=== PATIENT | female | born 1945 | race Caucasian/White ===

== ENCOUNTER 2023-03-20 12:19 | Outpatient (OUT) | payer MEDICARE, MEDICAID, SELFPAY ==
--- NOTE | 2023-03-20 | XR_ITS ---
The [address] [address] Patient Name: SIMA LEY MRN: [id number] date: 1945 Sex: F Assigned Patient Location: RAD Current Patient Location: RAD Accession/Order Number: [id number] Exam Date: 03/20/2023 12:28 Report Date: 03/20/2023 13:12 At the request of: LIDYA POST Procedure: XR abdomen 1V EXAMINATION: XR abdomen 1V HISTORY: Abdominal pain ; intermittent constipation, diarrhea, abdominal pain for one month COMPARISON: XR abdomen with chest 04/10/2014 FINDINGS: KIDNEY/URETER - RIGHT: No visible renal or ureteral calcifications. KIDNEY/URETER - LEFT: No visible renal or ureteral calcifications. PELVIS: No appreciable ureteral stones. Stable chronic small calcification left lateral to L4-5 intervertebral disc space. BOWEL: No abnormal dilation or deviation. No suspicious fluid levels. BONES: No acute abnormality. OTHER: Negative. No abnormal gaseous collections. XR/XR abdomen 1V IMPRESSION: 1. Normal bowel gas pattern. No suspicious findings to account for patient's symptoms. Electronically authenticated by: YOJANA GARCIA Date: 03/20/2023 13:12
== END 2023-03-20 12:20 | disposition home or self-care (01) ==
LOC: RAD 12:23
PROVIDERS: PCP Family Medicine; Visit Provider Family Medicine
DX: R10.9 Unspecified abdominal pain (principal); K59.00 Constipation, unspecified; R19.7 Diarrhea, unspecified
CPT/HCPCS: 74018

== ENCOUNTER 2023-07-18 13:04 | Emergency (ER) | payer MEDICARE, MEDICAID, SELFPAY ==
[2023-07-18 13:17] VITALS: BP 151/100; PULSE 104; RESP 18; TEMP 36.7; O2SAT 98; BMI 26.3
--- NOTE | 2023-07-18 13:23 | XR_ITS ---
The [address] [address] Patient Name: SIMA LEY MRN: [id number] date: 1945 Sex: F Assigned Patient Location: ER Current Patient Location: ED.MAIN Accession/Order Number: [id number] Exam Date: 07/18/2023 13:54 Report Date: 07/18/2023 14:13 At the request of: BETH CALDWELL Procedure: XR acute abdomen series EXAMINATION: XR acute abdomen series HISTORY: Diarrhea, hypertension COMPARISON: XR abdomen 03/20/2023, XR chest 03/02/2021 FINDINGS: LUNGS: No infiltrate, pneumothorax, or pleural effusion. MEDIASTINUM: No abnormal widening. Prior sternotomy. BOWEL GAS PATTERN: No abnormal dilation. Air and a few small fluid levels within the ascending and transverse colon. FREE AIR: None. CALCIFICATIONS: None significant. BONES: No fracture or visible bone lesion. OTHER: Negative. XR/XR acute abdomen series IMPRESSION: 1. No acute cardiopulmonary process. 2. No bowel obstruction or convincing ileus. Enteritis cannot be excluded. Electronically authenticated by: YOJANA GARCIA Date: 07/18/2023 14:13
--- NOTE | 2023-07-18 13:23 | ECG_ITS ---
The [facility] Test Date: 2023-07-18 Pat Name: SIMA LEY Department: Room: - Gender: Female Clinic Coordinator: : 1945 Requested By: LIDYA POST Order Number: [id number] Reading MD: MENDY MCKEON Measurements Intervals [place] Rate: 86 P: 53 CT: 144 QRS: -35 QRSD: 90 T: 74 QT: 362 QTc: 406 Interpretive Statements 1100 Sinus rhythm 7200 Abnormal left axis deviation 8102 Low QRS voltage in chest leads 9150 abnormal ECG No previous ECG available for comparison Electronically Signed On 07-19-2023 7:15:17 EST by MENDY MCKEON
[2023-07-18 14:27] LABS: Basophils Absolute Auto 0.1 10^3/uL (0.0-0.1); Basophils Percent Auto 0.7 % (0.2-2.0); Eosinophils Absolute Auto 0.2 10^3/uL (0.0-0.7); Eosinophils Percent Auto 2.7 % (0.9-7.0); Hematocrit 44.8 % (36.0-48.0); Immature Granulocytes Abs Auto 0.02 10^3/uL (0.00-0.03); Immature Granulocytes Pct Auto 0.3 % (0.0-0.5); Lymphocytes Absolute Auto 1.8 10^3/uL (1.2-3.8); Lymphocytes Percent Auto 23.9 % (20.5-60.0); Mean Corpuscular HGB Conc 31.3 g/dL (29.9-35.2); Mean Corpuscular Hemoglobin 30.2 pg (26.7-34.0); Mean Corpuscular Volume 96.8 fL (81.0-99.0); Mean Platelet Volume 9.3 fL (9.5-13.5); Monocytes Absolute Auto 0.6 10^3/uL (0.3-0.8); Monocytes Percent Auto 7.9 % (1.7-12.0); Neutrophils Percent Auto 64.5 % (43.0-75.0); Platelet Count 246 10^3/uL (150-450); Red Blood Count 4.63 10^6/uL (4.20-5.40); Red Cell Distribution Width 13.5 % (11.0-15.0); White Blood Count 7.7 10^3/uL (4.0-11.0)
[2023-07-18 15:05] LABS: Albumin Level 3.9 g/dL (3.4-5.0); Anion Gap 14.9; BUN Creatinine Ratio 13.3; Calcium 9.5 mg/dL (8.5-10.1); Carbon Dioxide 27.5 mmol/L (21.0-32.0); Chloride 104 mmol/L (98-107); Estimated GFR (African America 53 (>=60); Estimated GFR (Non-African Ame 44 (>=60); Glucose 115 mg/dL (74-106); Potassium 4.4 mmol/L (3.5-5.1); Sodium 142 mmol/L (136-145)
[2023-07-18 15:07] LABS: Bilirubin Total 0.6 mg/dL (0.2-1.0)
[2023-07-18 15:08] LABS: Alanine Aminotransferase 25 U/L (14-59); Albumin Globulin Ratio 1.1; Alkaline Phosphatase 74 U/L (46-116); Aspartate Amino Transferase 29 U/L (15-37); Globulin 3.5 g/dL; Thyroid Stimulating Hormone 1.985 uIU/mL (0.358-3.740); Total Protein 7.4 g/dL (6.4-8.2); Troponin I High Sensitivity 9.1 pg/mL (4.0-51.3)
[2023-07-18 17:28] VITALS: BP 148/90
--- NOTE | 2023-07-18 17:35 | ED.GENADUL1 ---
HPI - General Adult General Chief complaint: Nausea/Vomiting/Diarrhea Stated complaint: HYPERTENSION Time Seen by Provider: 07/18/23 13:23 Source: patient and family Mode of arrival: Wheelchair Limitations: physical limitation History of Present Illness HPI narrative: 77-year-old female presents because she wanted to be reassured that she is okay. She was worried about her heart because her blood pressure one up. She has been on Xanax for decades and recently her physician retired and the new physician will prescribe her anymore and he put her on Cymbalta. He's been on that for a few weeks but has Xanax at home. She is looking for a new doctor to prescribe her Xanax. She doesn't seem to have chest pain and hasn't had a fever or cough. Related Data Allergies Allergy/AdvReac Type Severity Reaction Status Date / Time prochlorperazine AdvReac Severe Vomiting Verified 07/18/23 13:21 [From Compazine] Review of Systems ROS Narrative A ten point review of systems is negative except as noted above. PFSH PFS Social History Smoking status: Never smoker Exam Narrative Exam Narrative: Nurses note and vital signs reviewed and patient is not hypoxic. General: The patient appears well and in no apparent distress. Patient is resting comfortably on cart. Skin: Warm, dry, no pallor noted. There is no rash noted. Head: Normocephalic, atraumatic Eye: Normal conjunctiva, no drainage Ears, Nose, Mouth, and Throat: oral mucosa is moist. Nares patent. Cardiovascular: Regular Rate and Rhythm Respiratory: Patient is in no distress, no accessory muscle use, lungs are clear to auscultation, no wheezing, rales or rhonchi Back: non-tender GI: Normal bowel sounds, no tenderness to palpation, no masses appreciated. No rebound, guarding, or rigidity noted. Musculoskeletal: The patient has no evidence of calf tenderness, no pitting edema, symmetrical pulses noted bilaterally Neurological: A&O, normal speech Psychiatric: Cooperative, appears anxious Constitutional Vital Signs, click to edit/add: Last Vital Signs Temp 98.1 F 07/18/23 13:17 Pulse 104 H 07/18/23 13:17 Resp 18 07/18/23 13:17 BP 148/90 H 07/18/23 17:28 Pulse Ox 98 07/18/23 13:17 O2 Del Method Room Air 07/18/23 13:17 Course Vital Signs Vital signs: Vital Signs Temperature 98.1 F 07/18/23 13:17 Pulse Rate 104 H 07/18/23 13:17 Respiratory Rate 18 07/18/23 13:17 Blood Pressure 151/100 H 07/18/23 13:17 Pulse Oximetry 98 07/18/23 13:17 Oxygen Delivery Method Room Air 07/18/23 13:17 Temperature 98.1 F 07/18/23 13:17 Pulse Rate 104 H 07/18/23 13:17 Respiratory Rate 18 07/18/23 13:17 Blood Pressure 148/90 H 07/18/23 17:28 Pulse Oximetry 98 07/18/23 13:17 Oxygen Delivery Method Room Air 07/18/23 13:17 Medical Decision Making MDM Narrative Medical decision making narrative: extensive workup ears negative and she was reassured. She was given a list of new physicians. Treatment diagnosis and follow-up were discussed with the patient. Differential Diagnosis Differential Diagnosis: cardiac dysrhythmia, myocardial infarction, anxiety Lab Data Lab results reviewed: Yes I reviewed the patient's lab results Labs: Lab Results 07/18/23 Range/Units 14:10 WBC 7.7 (4.0-11.0) 10^3/uL RBC 4.63 (4.20-5.40) 10^6/uL Hgb 14.0 (12.0-16.0) g/dL Hct 44.8 (36.0-48.0) % MCV 96.8 (81.0-99.0) fL MCH 30.2 (26.7-34.0) pg MCHC 31.3 (29.9-35.2) g/dL RDW 13.5 (11.0-15.0) % Plt Count 246 (150-450) 10^3/uL MPV 9.3 L (9.5-13.5) fL Neut % (Auto) 64.5 (43.0-75.0) % Lymph % (Auto) 23.9 (20.5-60.0) % [place] % (Auto) 7.9 (1.7-12.0) % Eos % (Auto) 2.7 (0.9-7.0) % Baso % (Auto) 0.7 (0.2-2.0) % Neut # (Auto) 5.0 (1.4-6.5) 10^3/uL Lymph # (Auto) 1.8 (1.2-3.8) 10^3/uL [place] # (Auto) 0.6 (0.3-0.8) 10^3/uL Eos # (Auto) 0.2 (0.0-0.7) 10^3/uL Baso # (Auto) 0.1 (0.0-0.1) 10^3/uL Abs Immat Gran (auto) 0.02 (0.00-0.03) 10^3/uL Imm/Tot Granulo (auto) 0.3 (0.0-0.5) % Sodium 142 (136-145) mmol/L Potassium 4.4 (3.5-5.1) mmol/L Chloride 104 (98-107) mmol/L Carbon Dioxide 27.5 (21.0-32.0) mmol/L Anion Gap 14.9 BUN 16.0 (7.0-18.0) mg/dL Creatinine 1.20 H (0.55-1.02) mg/dL Est GFR ( Amer) 53 L (>=60) Est GFR (Non-Af Amer) 44 L (>=60) BUN/Creatinine Ratio 13.3 Glucose 115 H (74-106) mg/dL Calcium 9.5 (8.5-10.1) mg/dL Total Bilirubin 0.6 (0.2-1.0) mg/dL AST 29 (15-37) U/L ALT 25 (14-59) U/L Alkaline Phosphatase 74 (46-116) U/L Troponin I High Sens 9.1 (4.0-51.3) pg/mL Total Protein 7.4 (6.4-8.2) g/dL Albumin 3.9 (3.4-5.0) g/dL Globulin 3.5 g/dL Albumin/Globulin Ratio 1.1 TSH 1.985 (0.358-3.740) uIU/mL Imaging Data Chest x-ray: Radiologist's impression: Procedure: XR acute abdomen series EXAMINATION: XR acute abdomen series HISTORY: Diarrhea, hypertension COMPARISON: XR abdomen 03/20/2023, XR chest 03/02/2021 FINDINGS: LUNGS: No infiltrate, pneumothorax, or pleural effusion. MEDIASTINUM: No abnormal widening. Prior sternotomy. BOWEL GAS PATTERN: No abnormal dilation. Air and a few small fluid levels within the ascending and transverse colon. FREE AIR: None. CALCIFICATIONS: None significant. BONES: No fracture or visible bone lesion. OTHER: Negative. IMPRESSION: 1. No acute cardiopulmonary process. 2. No bowel obstruction or convincing ileus. Enteritis cannot be excluded. ECG Data Attestation: I personally reviewed and interpreted this ECG as follows: (EKG on my interpretation shows sinus rhythm with no acute findings and a rate of 86.) Discharge Plan Discharge Chief Complaint: Nausea/Vomiting/Diarrhea Clinical Impression: Anxiety Patient Disposition: Home, Self-Care Time of Disposition Decision: 17:34 Condition: Good Mode of Transportation: Private Vehicle Instructions: Anxiety (ED) Stand Alone Forms: Portal Instructions Referrals: LIDYA POST [Primary Care Provider] - 1 week
== END 2023-07-18 17:42 | disposition home or self-care (01) ==
PROVIDERS: Physician Assistant; Emergency Provider Emergency Medicine; PCP Family Medicine
DX: F41.9 Anxiety disorder, unspecified (principal); Z79.899 Other long term (current) drug therapy
CPT/HCPCS: 36415; 74022; 80053; 84443; 84484; 85025; 93005; 99285

== ENCOUNTER 2023-08-06 21:41 | Emergency (ER) | payer MEDICARE, MEDICAID, SELFPAY ==
[2023-08-06 21:47] VITALS: BP 147/77; PULSE 78; RESP 18; TEMP 36.5; O2SAT 94; BMI 26.0
--- NOTE | 2023-08-06 22:04 | CT_ITS ---
The [address] [address] Patient Name: SIMA LEY MRN: [id number] date: 1945 Sex: F Assigned Patient Location: ER Current Patient Location: ER Accession/Order Number: [id number] Exam Date: 08/06/2023 22:30 Report Date: 08/06/2023 23:19 At the request of: JIMBO LANGFORD Procedure: CT abdomen pelvis wo con EXAM: CT abdomen pelvis wo con HISTORY: constipation, r/o obstruction COMPARISON: None. TECHNIQUE: Nonenhanced CT imaging the abdomen and pelvis was performed with sagittal and coronal reconstructions. FINDINGS: CT ABDOMEN: The lung bases are clear. The imaged heart is unremarkable. The exam is limited by the lack of IV contrast. Solid organ lesions or acute abnormalities could be missed. Allowing for this, the liver, pancreas, spleen, adrenal glands, kidneys, stomach and small bowel appear grossly unremarkable. Cholecystectomy is noted. There are moderate aortic and iliac calcifications without aneurysm. CT PELVIS: The pelvic small bowel loops are unremarkable. Multiple layering tiny stones are seen in the posterior urinary bladder. The bladder is otherwise unremarkable. Prior hysterectomy is noted. The ovaries and appendix are not visualized and may have been removed as well. Sigmoid diverticulosis is noted. There is moderate stool throughout the colon. There is a benign 1.2 cm rim calcified nodule in the right lower quadrant on image 89, likely a lymph node. Mild pelvic floor laxity is present. No inflammatory fat stranding, free fluid, loculated fluid or free air is seen in the abdomen or pelvis. Sclerotic changes in the bilateral femoral heads are suspicious for early avascular necrosis. Mild degenerative changes are noted in the lumbar spine. No acute osseous abnormality or suspicious bony lesion is seen. CT/CT abdomen pelvis wo con IMPRESSION: 1. No acute findings in the abdomen or pelvis. 2. Multiple tiny layering bladder calculi. No hydronephrosis or ureterolithiasis on either side. 3. Moderate colonic stool volume. Sigmoid diverticulosis is noted. 4. Prior cholecystectomy and hysterectomy. 5. 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 MRI could further evaluate. Electronically authenticated by: LEIGH EDGAR Date: 08/06/2023 23:19
[2023-08-06 22:32] LABS: Basophils Absolute Auto 0.1 10^3/uL (0.0-0.1); Basophils Percent Auto 0.7 % (0.2-2.0); Eosinophils Absolute Auto 0.2 10^3/uL (0.0-0.7); Eosinophils Percent Auto 2.2 % (0.9-7.0); Hematocrit 41.5 % (36.0-48.0); Hemoglobin 12.9 g/dL (12.0-16.0); Immature Granulocytes Abs Auto 0.01 10^3/uL (0.00-0.03); Immature Granulocytes Pct Auto 0.1 % (0.0-0.5); Lymphocytes Absolute Auto 2.9 10^3/uL (1.2-3.8); Lymphocytes Percent Auto 35.6 % (20.5-60.0); Mean Corpuscular HGB Conc 31.1 g/dL (29.9-35.2); Mean Corpuscular Hemoglobin 30.6 pg (26.7-34.0); Mean Corpuscular Volume 98.3 fL (81.0-99.0); Mean Platelet Volume 9.2 fL (9.5-13.5); Monocytes Absolute Auto 0.6 10^3/uL (0.3-0.8); Neutrophils Absolute Auto 4.4 10^3/uL (1.4-6.5); Neutrophils Percent Auto 54.4 % (43.0-75.0); Platelet Count 227 10^3/uL (150-450); Red Blood Count 4.22 10^6/uL (4.20-5.40); Red Cell Distribution Width 13.3 % (11.0-15.0); White Blood Count 8.1 10^3/uL (4.0-11.0)
[2023-08-06 22:33] LABS: Bilirubin Urine NEGATIVE (NEGATIVE); Blood Urine NEGATIVE (NEGATIVE); Clarity Urine CLEAR (CLEAR); Color Urine DK. YELLOW (YELLOW); Glucose Urine UA NEGATIVE (NEGATIVE); Ketones Urine NEGATIVE (NEGATIVE); Leukocyte Esterase Urine SMALL (NEGATIVE); Nitrite Urine POSITIVE (NEGATIVE); Protein Urine NEGATIVE (NEG/TRACE); Specific Gravity Urine 1.025 (1.005-1.025); Urine Microscopic Indicated YES; Urobilinogen Urine 0.2 EU/dL (0.2-1.0)
[2023-08-06 22:39] LABS: Bacteria Urine SMALL #/HPF (NONE SEEN); Mucus Urine NONE SEEN (NONE SEEN); RBC Urine 0-2 #/HPF (0-2); Squamous Epithelial Cell Urine FEW #/LPF (NONE/RARE)
[2023-08-06 22:40] LABS: Cast Seen? SEEN #/LPF (NONE SEEN); Crystals Seen? None Seen #/HPF (None Seen); Hyaline Casts Urine FEW; Urine Culture Indicated YES
[2023-08-06 22:41] LABS: Anion Gap 8.8; BUN Creatinine Ratio 19.9; Calcium 8.9 mg/dL (8.5-10.1); Carbon Dioxide 28.2 mmol/L (21.0-32.0); Chloride 103 mmol/L (98-107); Estimated GFR (African America 38 (>=60); Estimated GFR (Non-African Ame 31 (>=60); Glucose 101 mg/dL (74-106); Sodium 136 mmol/L (136-145)
--- NOTE | 2023-08-07 00:12 | ED.ABDPAIN1 ---
HPI - Abdominal Pain General Chief Complaint: Abdominal Pain Stated Complaint: Constipation Time Seen by Provider: 08/06/23 21:52 Source: patient Mode of arrival: walk-in Limitations: no limitations History of Present Illness HPI narrative: 72-year-old female to the emergency department with chief complaint of seven-day history of constipation. Patient reports she is having small bowel movements and feels though she is straining to have them. She is passing gas. She reports occasional nausea. She vomited one time this week. She denies any fever, sweats, chills. She reports she is also Being treated for a urinary tract infection is on Bactrim. Reports occasional cramping lower abdominal pain. Related Data Previous Rx's Medication Instructions Recorded cephalexin 500 mg capsule 500 mg PO BID 5 days #10 caps 08/06/23 ondansetron 4 mg disintegrating 4 mg PO Q8H PRN nausea and 08/06/23 tablet vomiting 4 days #16 tabs Allergies Allergy/AdvReac Type Severity Reaction Status Date / Time prochlorperazine AdvReac Severe Vomiting Verified 07/18/23 13:21 [From Compazine] Review of Systems ROS Status of ROS 10 or more systems reviewed and unremarkable except as noted in history and below PFSH PFSH Social History Smoking status: Never smoker Exam Narrative Exam Narrative: VITALS: I have reviewed the triage vital signs.? GENERAL: Well developed, well appearing adult in no acute distress.?? NEURO: Alert and oriented. Moves all extremities. Face is symmetric and expressive.? EYES: PERRL. No scleral icterus or conjunctival injection. No discharge.? HENT: Normocephalic, atraumatic. Hearing is grossly intact. Nares grossly patent and without discharge. Mucous membranes moist.? NECK: No JVD. Patient moves neck without restriction.? CARDIO: Rhythm regular. Normal rate. No murmur, rub, or gallop. Pulses equal bilaterally in the upper and lower extremity. No lower extremity edema.? PULM: Lungs clear to auscultation in all street. No wheezes, rales, or rhonchi. No conversational dyspnea. No splinting, stridor, or accessory muscle use.?? GI/: Abdomen is soft and non-tender. Normoactive bowel sounds.? EXTREMITIES: Symmetric muscle bulk. No joint swelling. No clubbing, cyanosis, or deformity.? SKIN: Warm and dry. Normal turgor. No rash or lesions appreciated.? PSYCH: Mood, affect, and interaction is appropriate to the setting. Constitutional Vital Signs, click to edit/add: Last Vital Signs Temp 97.7 F 08/06/23 21:47 Pulse 78 08/06/23 21:47 Resp 18 08/06/23 21:47 BP 147/77 H 08/06/23 21:47 Pulse Ox 94 L 08/06/23 21:47 O2 Del Method Room Air 08/06/23 21:47 Course Vital Signs Vital signs: Vital Signs Temperature 97.7 F 08/06/23 21:47 Pulse Rate 78 08/06/23 21:47 Respiratory Rate 18 08/06/23 21:47 Blood Pressure 147/77 H 08/06/23 21:47 Pulse Oximetry 94 L 08/06/23 21:47 Oxygen Delivery Method Room Air 08/06/23 21:47 Temperature 97.7 F 08/06/23 21:47 Pulse Rate 78 08/06/23 21:47 Respiratory Rate 18 08/06/23 21:47 Blood Pressure 147/77 H 08/06/23 21:47 Pulse Oximetry 94 L 08/06/23 21:47 Oxygen Delivery Method Room Air 08/06/23 21:47 MDM - Abdominal Pain MDM Narrative Medical decision making narrative: 77-year-old female to the emergency department with chief complaint of lower abdominal cramping pain, constipation over the last few days. Vitals stable,The patient is afebrile.She is well-appearing. Her abdominal examination is benign. Basic labs, urinalysis, CT scan to rule out other acute process given her advanced age. Patient agrees with this plan. Zofran was given for nausea. CBC and chemistry without major abnormality. She does have a slight increase in creatinine from her baseline which is likely due to her Bactrim use. We will discontinue her Bactrim and begin using Keflex as her urinary tract infection has not cleared either. 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 Moderate stool burning. No other acute findings. Patient will begin MiraLAX two capfuls daily for the next three days. She'll follow-up with her orthopedic doctor about the incidental CT finding. She'll begin Keflex and discontinue Bactrim. She'll follow-up with her PCP this week. Return precautions were discussed. All questions were answered. The patient was discharged home. Medical Records Attestation: I reviewed the patient's medical records. Lab Data Attestation: I reviewed the patient's lab results. Labs: Lab Results 08/06/23 08/06/23 Range/Units 22:19 22:25 WBC 8.1 (4.0-11.0) 10^3/uL RBC 4.22 (4.20-5.40) 10^6/uL Hgb 12.9 (12.0-16.0) g/dL Hct 41.5 (36.0-48.0) % MCV 98.3 (81.0-99.0) fL MCH 30.6 (26.7-34.0) pg MCHC 31.1 (29.9-35.2) g/dL RDW 13.3 (11.0-15.0) % Plt Count 227 (150-450) 10^3/uL MPV 9.2 L (9.5-13.5) fL Neut % (Auto) 54.4 (43.0-75.0) % Lymph % (Auto) 35.6 (20.5-60.0) % [place] % (Auto) 7.0 (1.7-12.0) % Eos % (Auto) 2.2 (0.9-7.0) % Baso % (Auto) 0.7 (0.2-2.0) % Neut # (Auto) 4.4 (1.4-6.5) 10^3/uL Lymph # (Auto) 2.9 (1.2-3.8) 10^3/uL [place] # (Auto) 0.6 (0.3-0.8) 10^3/uL Eos # (Auto) 0.2 (0.0-0.7) 10^3/uL Baso # (Auto) 0.1 (0.0-0.1) 10^3/uL Abs Immat Gran (auto) 0.01 (0.00-0.03) 10^3/uL Imm/Tot Granulo (auto) 0.1 (0.0-0.5) % Sodium 136 (136-145) mmol/L Potassium 4.0 (3.5-5.1) mmol/L Chloride 103 (98-107) mmol/L Carbon Dioxide 28.2 (21.0-32.0) mmol/L Anion Gap 8.8 BUN 32.0 H (7.0-18.0) mg/dL Creatinine 1.61 H (0.55-1.02) mg/dL Est GFR ( Amer) 38 L (>=60) Est GFR (Non-Af Amer) 31 L (>=60) BUN/Creatinine Ratio 19.9 Glucose 101 (74-106) mg/dL Calcium 8.9 (8.5-10.1) mg/dL Urine Color Dk. yellow (YELLOW) Urine Clarity Clear (CLEAR) Urine pH 6.0 (5.0-9.0) Ur Specific [place] 1.025 (1.005-1.025) Urine Protein Negative (NEG/TRACE) mg/dL Urine Glucose (UA) Negative (NEGATIVE) mg/dL Urine Ketones Negative (NEGATIVE) mg/dL Urine Occult Blood Negative (NEGATIVE) Urine Nitrite Positive A (NEGATIVE) Urine Bilirubin Negative (NEGATIVE) Urine Urobilinogen 0.2 (0.2-1.0) EU/dL Ur Leukocyte Esterase Small A (NEGATIVE) Urine RBC 0-2 (0-2) #/HPF Urine WBC 2-5 A (NONE SEEN) #/HPF Ur Squamous Epith Cells Few A (NONE/RARE) #/LPF Urine Crystals None seen (None Seen) #/HPF Urine Bacteria Small A (NONE SEEN) #/HPF Urine Casts Seen A (NONE SEEN) #/LPF Hyaline Casts Few Urine Mucus None seen (NONE SEEN) Ur Culture Indicated? Yes Imaging Data CT scan - abdomen: Attestation: I have reviewed the pertinent imaging results. Discharge Plan Discharge Chief Complaint: Abdominal Pain Clinical Impression: Acute UTI, Hip pain, Constipation Patient Disposition: Home, Self-Care Time of Disposition Decision: 23:32 Condition: Good Mode of Transportation: Private Vehicle Prescriptions / Home Meds: New cephalexin 500 mg capsule 500 mg PO BID 5 Days Qty: 10 0RF ondansetron 4 mg tablet,disintegrating 4 mg PO Q8H PRN (Reason: nausea and vomiting) 4 Days Qty: 16 0RF Print Language: Romansh Instructions: Constipation (ED), Hip Pain (ED), Urinary Tract Infection in Older Adults (ED) Additional Instructions: 1. Follow-up with orthopedic surgeon about incidental finding of degenerative changes in her hips. Radiology recommended an MRI. 2. Stop taking bactrim, start keflex. 3. Double your Miralax for the next 3 days. 4. Follow-up with your PCP in the next 3 days about this ED visit. Stand Alone Forms: Portal Instructions Referrals: [facility] [Primary Care Provider] - 1 week Julien Pardo PA [Physician Tester [employer]] - 1 week (FOLLOW UP TO DISCUSS FINDINGS ON CT SCAN OF YOUR HIPS. RADIOLOGY RECOMMENDED AN MRI. )
[2023-08-07] MEDS: ONDANSETRON 4 MG RAPDIS TABLET SL (00:13)
== END 2023-08-07 00:19 | disposition home or self-care (01) ==
PROVIDERS: Emergency Provider Student in an Organized Health Care Education/Training Program
DX: K59.00 Constipation, unspecified (principal); N39.0 Urinary tract infection, site not specified; M25.559 Pain in unspecified hip
CPT/HCPCS: 36415; 74176; 80048; 81001; 85025; 87086; 99285

== ENCOUNTER 2023-09-09 11:21 | Outpatient (OUT) | payer MEDICARE, MEDICAID, SELFPAY ==
--- OUTSIDE RECORDS SUMMARY | 2023-09-09 11:26 | XMS_ITS | CCD ---
Author Name Unknown Address [address] [facility] [address] [place] [address] Organization [facility] Care Team Providers Care Systems Navigator Name Role Phone WILIAN, LISET Unavailable Unavailable WILIAN, LISET Unavailable Unavailable MAX, ASHUTOSH Unavailable Unavailable MAX, ASHUTOSH Unavailable Unavailable Mary Toure Unavailable MD Ashutosh Santana Primary Care Provider MD Rashard Epstein Attending Provider [phone] MAX, DR ASHUTOSH Esparza Primary Care Unavailable SANTANA, DR ASHUTOSH Esparza Admitting Unavailable SANTANA, DR ASHUTOSH Esparza Attending Unavailable SANTANA, DR ASHUTOSH Esparza Attending Unavailable SANTANA, DR ASHUTOSH Esparza Consulting Unavailable SANTANA, DR ASHUTOSH Esparza Primary Care Unavailable SANTANA, DR ASHUTOSH Esparza Admitting Unavailable SANTANA, DR ASHUTOSH Esparza Attending Unavailable SANTANA, DR ASHUTOSH Esparza Consulting Unavailable SANTANA, DR ASHUTOSH Esparza Primary Care Unavailable SANTANA, DR ASHUTOSH Esparza Admitting Unavailable SANTANA, DR ASHUTOSH Esparza Attending Unavailable SANTANA, DR ASHUTOSH Esparza Consulting Unavailable SANTANA, DR ASHUTOSH Esparza Primary Care Unavailable SANTANA, DR ASHUTOSH Esparza Admitting Unavailable SANTANA, DR ASHUTOSH Esparza Consulting Unavailable SANTANA, DR ASHUTOSH Esparza Primary Care Unavailable SANTANA, DR ASHUTOSH Esparza Admitting Unavailable SANTANA, DR ASHUTOSH Esparza Attending Unavailable MD Ashutosh Santana Primary Care Provider MD Rashard Epstein Attending Provider Anoop Almanzar. Primary Care Physician Shayy Garza Unavailable NONE, XXXX Primary Care Physician Unavailab le NO FAMILY, PHYSICIAN Primary Care Provider Unava ilable SUMAN Toure Attending Provider ABIGAIL Garza Attending Provider Shayy Garza Admitting Unavailable NO FAMILY, PHYSICIAN Primary Care Unavailable Shayy Garza Attending Unavailable Rashard Epstein Attending Unavailable HalRashard bhatt Admitting Unavailable Santana, Ashutosh E Primary Care Unavailable HalRashard bhatt Attending Unavailable Haladades, Rashard Admitting Unavailable Santana, Ashutosh E Primary Care Unavailable NO FAMILY, PHYSICIAN Primary Care Unavailable Shayy Garza Attending Unavailable Shayy Garza Admitting Unavailable NO FAMILY, PHYSICIAN Primary Care Unavailable Mary Toure Attending Unavailable Mary Toure Admitting Unavailable PILI VELASCO Referring Unavailable SANTANA, ASHUTOSH E Primary Care Unavailable Anoop Almanzar Attending Unavailable Anoop Almanzar Attending Unavailable Anoop Almanzar Referring Unavailable Rahul Salas Attending UnavailGem Gibbs Attending Unavailable Gem Contreras Attending Unavailable ASHUTOSH SANTANA E Attending Unavailable Anoop Almanzar Attending Unavailable Anoop Almanzar Attending Unavailable NONE, XXXX Referring Unavailable Rahul Salas Attending Unavaila Anoop Valerio Attending Unavailable Anoop Almanzar Attending Unavailable Anoop Almanzar Attending Unavailable Anoop Almanzar Referring Unavailable Rahul Salas Attending Unavaila Rahul Dillon Referring Unavaila Rahul Dillon Admitting Unavaila Rahul Dillon Consulting Unavaila Rahul Dillon Attending Unavaila Rahul Dillon Consulting Unavaila Rahul Dillon Consulting Unavaila Franco Zimmer Admitting Unavailable Franco SCHERER Attending Unavailable Franco SCHERER Referring Unavailable Camelia LOW Admitting Unavailable NONE, XXXX Referring Unavailable Rahul Salas Attending Unavaila Tonio Garvey Attending Unavaila Gem Kim Attending Unavailable Gem Contreras Attending Unavailable SHAIKH GUAJARDO Attending Unavailable SERA JENSEN Attending Unavailable SERA JENSEN Referring Unavailable Allergies Allergy Classification Reported Allergen(s) Allergy Type Date of Onset Reaction(s) Facility (19 sources) prochlorperazine; 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: [compazine] Drug Allergy 2 AOF, throat swelling, unknown [facility] (9 sources) Ciprofloxacin Drug Allergy rash [facility] Other (1 source) Levamisole Drug Allergy [facility] (7 sources) atorvastatin; 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: [atorvastatin] Drug Allergy unknown [facility] (7 sources) Solifenacin; 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: [solifenacin] Drug Allergy unknown [facility] Medications Current Medications Medication Drug Class(es) Dates Sig (Normalized) Sig (Original) acetaminophen 325 mg / HYDROcodone bitartrate 5 mg oral tablet (6 sources) Opioid Agonist Start: 06-22-2023 acetaminophen-hydr ocodone 325 mg-5 mg oral tablet 1 tab(s), Oral, q6hr, 90 tab(s), Refill(s) 0, [facility] #[id number], 167, cm, 06/22/23 15:56:00 EDT, Height/Length Dosing, 75.7, kg, 06/22/23 15:56:00 EDT, Weight Dosing Start Date: 06/22/23 Status: Ordered Start: 05-30-2023 acetaminophen- hydrocodone 325 mg-5 mg oral tablet 1 tab(s), Oral, q6hr, 90 tab(s), Refill(s) 0, [facility] #[id number], 167, cm, 05/30/23 14:35:00 EDT, Height/Length Dosing, 77.1, kg, 05/30/23 14:35:00 EDT, Weight Dosing Start Date: 05/30/23 Status: Ordered Start: 03-10-2023 acetaminophen- hydrocodone 325 mg-5 mg oral tablet 1 tab(s), Oral, q6hr, 90 tab(s), Refill(s) 0, [facility] #[id number], 167, cm, 12/20/22 16:33:00 EDT, Height/Length Dosing, 82, kg, 12/20/22 16:33:00 EDT, Weight Dosing Start Date: 03/10/23 Status: Ordered ALPRAZolam 0.5 mg oral tablet (6 sources) Benzodiazepine Start: 06-22-2023 take 1 tablet by mouth once daily as needed for anxiety alprazolam 0.5 mg Tab 0.5 mg = 1 tab(s), Oral, Daily, PRN for anxiety, as needed, Refills(s) 0 Start Date: 06/22/23 Status: Ordered Start: 05-29-2023 take 1 tablet by theo three times daily as needed for anxiety alprazolam 0.5 mg Tab 0.5 mg = 1 tab(s), Oral, TID, PRN for anxiety, # 10 tab(s), Refills(s) 0, Pharmacy: [facility] #[id number], 167, cm, 05/25/23 15:36:00 EDT, Height/Length Dosing, 76.6, kg, 05/25/23 15:36:00 EDT, Weight Dosing Start Date: 05/29/23 Status: Ordered Start: 04-25-2023 take 1 tablet by theo three times daily as needed for anxiety alprazolam 0.5 mg Tab 0.5 mg = 1 tab(s), Oral, TID, PRN for anxiety, # 30 tab(s), Refills(s) 0, Pharmacy: [facility] #[id number], 167, cm, 04/20/23 14:55:00 EDT, Height/Length Dosing, 78.6, kg, 04/20/23 14:55:00 EDT, Weight Dosing Start Date: 04/25/23 Status: Ordered Start: 03-28-2023 take 1 tablet by theo three times daily as needed for anxiety alprazolam 0.5 mg Tab 0.5 mg = 1 tab(s), Oral, TID, PRN for anxiety, # 30 tab(s), Refills(s) 0, Pharmacy: [facility] #[id number], 167, cm, 03/28/23 13:02:00 EDT, Height/Length Dosing, 79.8, kg, 03/28/23 13:02:00 EDT, Weight Dosing Start Date: 03/28/23 Status: Ordered Amlodipine (15 sources) Dihydropyridine Calcium Channel Doretha Start: 11-01-2022 amlodipine Oral, Daily, Refills(s) 0 Start Date: 11/01/22 Status: Ordered amLODIPine Besyl ate 5 MG Oral for 30 Not-Taking/PRN Aspir-81 (9 sources) Aspir-81 Active carvedilol (15 sources) alpha-Adrenergic Doretha, beta-Adrenergic Doretha Start: 11-01-2022 carvedilol Oral, Ref ills(s) 0 Start Date: 11/01/22 Status: Ordered Carvedilol Activ e cephalexin 500 mg oral capsule (16 sources) Cephalosporin Antibacterial Start: 05-04-2023 take 1 capsule by mouth every eight hours Cephalexin 500 MG 1 capsule Orally every 8 hrs for 7 Jul, Active Ergocalciferol (15 sources) Provitamin D2 Compound Start: 11-01-2022 ergocalciferol 1,250 mg, Oral, Refills(s) 0 Start Date: 11/01/22 Status: Ordered Vitamin D2 Not-T aking/PRN Vitamin D2 Not-T aking Vitamin D2 Activ e Esomeprazole (9 sources) Proton Pump Inhibitor NexIUM Act ne hydrocortisone acetate 10 mg/ml / pramoxine hydrochloride 10 mg/ml rectal foam (6 sources) Corticosteroid Start: 03-20-20 Proctofoam HC rectal foam 1 elías, Rectal, TID, 10 gram, Refill(s) 0, [facility] #[id number], 167, cm, 03/20/23 11:45:00 EDT, Height/Length Dosing, 80.9, kg, 03/20/23 11:45:00 EDT, Weight Dosing Start Date: 03/20/23 Status: Ordered hydroxychloroquine sulfate 200 mg oral tablet (15 sources) Antimalarial, Antirheumatic Agent Start: 10-28-19 hydroxychloroquine 200 mg Tab Refills(s) 0 Start Date: 10/27/22 Status: Ordered Hydroxychloroqui ne Sulfate Active hydrOXYzine (4 sources) Antihistamine hydrOXYzine HCl Active hyoscyamine sulfate 0.125 mg disintegrating oral tablet (5 sources) Start: take 1 tablet by mouth four times daily hyoscyamine 0.125 mg oral tablet, disintegrating 0.125 mg = 1 tab(s), Oral, QID, # 60 tab(s), Refills(s) 1, Pharmacy: [facility] #[id number], 167, cm, 06/01/23 14:55:00 EDT, Height/Length Dosing, 77, kg, 06/01/23 15:07:00 EDT, Weight Dosing Start Date: 06/07/23 Status: Ordered Start: 11-01-2022 take 1 tablet by theo th four times daily hyoscyamine 0.125 mg oral tablet, disintegrating 0.125 mg = 1 tab(s), Oral, QID, Refills(s) 0 Start Date: 11/01/22 Status: Ordered 24 hr isosorbide mononitrate 30 mg extended release oral tablet (4 sources) Nitrate Vasodilator Start: 05-26-2023 take 1 tablet by mouth once daily in the morning isosorbide mononitrate 30 mg ER Tab 30 mg = 1 tab(s), Oral, qAM, # 30 tab(s), Refills(s) 6, Pharmacy: [facility] #[id number], 167, cm, 05/25/23 15:36:00 EDT, Height/Length Dosing, 76.6, kg, 05/25/23 15:36:00 EDT, Weight Dosing Start Date: 05/26/23 Status: Ordered levothyroxine sodium 0.1 mg oral tablet (15 sources) l-Thyroxine Start: 11-30-2022 take 1 tablet by mouth once daily levothyroxine 100 mcg (0.1 mg) Tab 100 mcg = 1 tab(s), Oral, Daily, # 90 tab(s), Refills(s) 3, Pharmacy: [facility] #[id number], 167.4, cm, 11/02/22 15:26:00 EDT, Height/Length Dosing, 82.7, kg, 11/02/22 15:26:00 EDT, Weight Dosing Start Date: 11/30/22 Status: Ordered Levothyroxine So dium Active losartan potassium 100 mg oral tablet (15 sources) Angiotensin 2 Receptor Doretha Start: 10-27-2022 losartan 100 mg Tab Refills(s) 0 Start Date: 10/27/22 Status: Ordered Losartan Potassi um Active methylPREDNISolone 4 mg oral tablet (1 source) Corticosteroid Start: 05-11-2023 End: 05-17-2023 Medrol Dosepack 4 mg Tab = 1 packet(s), Oral, As Directed, as directed on package labeling, X 6 day(s), # 21 tab(s), Refills(s) 0, Pharmacy: [facility] #[id number], 167, cm, 04/20/23 14:55:00 EDT, Height/Length Dosing, 78.6, kg, 04/20/23 14:55:00 EDT, Weight Dosing Start Date: 05/11/23 Stop Date: 05/17/23 Status: Ordered ondansetron 4 mg oral tablet (5 sources) Serotonin-3 Receptor Antagonist Start: 06-02-2023 take 1 tablet by mouth every eight hours ondansetron 4 mg Tab 4 mg = 1 tab(s), Oral, q8hr, # 10 tab(s), Refills(s) 1, Pharmacy: [facility] #[id number], 167, cm, 06/01/23 14:55:00 EDT, Height/Length Dosing, 77, kg, 06/01/23 15:07:00 EDT, Weight Dosing Start Date: 06/02/23 Status: Ordered Start: 11-01-2022 take 1 tablet by theo th every eight hours ondansetron 4 mg Tab 4 mg = 1 tab(s), Oral, q8hr, Refills(s) 0 Start Date: 11/01/22 Status: Ordered YAMILKA (10 sources) Start: 05-03-2023 YAMILKA Godinez, See Instructions, 1 EA, 0, expires in 5 years, Supply Start Date: 05/03/23 Status: Ordered predniSONE 20 mg oral tablet (2 sources) Start: 08-17-2023 take 1 tablet by mouth every twelve hours prednisone 20 MG 1 tablet Orally BID for 5 Jul, Active sertraline 25 mg oral tablet (6 sources) Serotonin Reuptake Inhibitor Start: 11-01-2022 take 1 tablet by mouth once daily sertraline 25 mg Tab 25 mg = 1 tab(s), Oral, Daily, Refills(s) 0 Start Date: 11/01/22 Status: Ordered Completed/Discontinued Medications Medication Drug Class(es) Dates Sig (Normalized) Sig (Original) nitrofurantoin, macrocrystals 25 mg / nitrofurantoin, monohydrate 75 mg oral capsule (9 sources) Nitrofuran Antibacterial Start: 12-21-2021 take 1 capsule by mouth every twelve hours Macrobid 100 MG 1 cap(s) Orally bid for 5 day(s) December, Not-Taking/PRN phenazopyridine hydrochloride 200 mg oral tablet (20 sources) Start: 12-21-2021 take 1 tablet by mouth every eight hours Pyridium 200 MG 1 tablet after meals Orally Three times a day for 2 day(s) Jul, Not-Taking/PRN sulfamethoxazole 800 mg / trimethoprim 160 mg oral tablet (4 sources) Dihydrofolate Reductase Inhibitor Antibacterial, Sulfonamide Antimicrobial Start: 08-01-2023 take 1 tablet by mouth every twelve hours Bactrim DS 800-160 MG 1 tablet Orally Twice a day for 7 Jul, Not-Taking/PRN Problems Active Problems Problem Classification Problem Date Documented Date Episodic/Chronic Abdominal pain (8 sources) Generalized abdominal pain; 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: [Unspecified abdominal pain] Onset: 03-20-20 23 03-28-2023 Episodic Adjustment disorders (2 sources) Adjustment disorder with anxious mood 06-12-2023 Chronic Anxiety disorders (13 sources) Anxiety; 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: [Mixed anxiety and depressive disorder] 11-01-2022 Chronic Calculus of urinary tract (6 sources) Urinary bladder stone 12-20-2022 Episodic Coronary atherosclerosis and other heart disease (6 sources) Coronary arteriosclerosis 04-17-2023 Chroni c Deficiency and other anemia (6 sources) Anemia 11-01-2022 Episodic Disorders of lipid metabolism (6 sources) Pure hypercholesterolemia 11-01-2022 Chroni c Essential hypertension (6 sources) Essential hypertension 11-01-2022 Chronic Hemorrhoids (6 sources) Hemorrhoids 03-20-2023 Episodic Mood disorders (6 sources) Depressive disorder; 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: [Single episode of major depression in full remission] 12-20-2022 Chronic Nutritional deficiencies (6 sources) Disorder of vitamin D 11-01-2022 Chronic Osteoarthritis (6 sources) Osteoarthritis of knee 11-01-2022 Chronic Comment on above: Left knee Chronic Osteoporosis (6 sources) Primary osteoporosis 11-01-2022 Chronic Other connective tissue disease (6 sources) Impingement syndrome of shoulder region 11-01-2022 Episodic Other connective tissue disease (6 sources) Primary fibromyalgia syndrome 11-01-2022 Episodic Other gastrointestinal disorders (6 sources) Irritable bowel syndrome 11-01-2022 Chronic Other injuries and conditions due to external causes (2 sources) History of fall 03-14-2023 Episodic Other nutritional; endocrine; and metabolic disorders (6 sources) Overweight in adulthood with body mass index of 25 or more but less than 30 11-02-2022 Episodic Other upper respiratory infections (6 sources) Posterior rhinorrhea 04-17-2023 Episodic Peripheral and visceral atherosclerosis (6 sources) Atherosclerosis of aorta 11-01-2022 Chronic Spondylosis; intervertebral disc disorders; other back problems (6 sources) Sciatica 11-01-2022 Episodic Thyroid disorders (10 sources) Hypothyroidism, unspecified; 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: [Hypothyroidism] Onset: 09-20-19 Chronic Unclassified (6 sources) Long-term current use of opiate analgesic drug 11-01-2022 Unclassified (1 source) Interstitial pulmonary disease, unspecified; 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: [Interstitial pulmonary disease, unspecified] Onset: 03-02-20 Unclassified (2 sources) ;BLADDER CALCULI; 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: [;BLADDER CALCULI] Onset: 10-22-19 Urinary tract infections (20 sources) Urinary tract infection, site not specified; 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: [Acute cystitis without hematuria] Onset: 12-22-19 Resolved : 12-22-19 Episodic Past or Other Problems Problem Classification Problem Date Documented Da te Episodic/Chronic Genitourinary symptoms and ill-defined conditions (10 sources) Frequency of micturition; 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: [Dysuria] Onset: 12-21-2021 Resolved: 12-21-2021 Episodic Malaise and fatigue (4 sources) Other fatigue; 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: [OTHER FATIGUE] Onset: 07-06-2017 Episodic Other bone disease and musculoskeletal deformities (1 source) Disorder of bone, unspecified; 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: [Disorder of bone, unspecified] Onset: 01-24-2023 Episodic Results Test Name Value Interpretation Reference Range Facility Heart and Vascular Office/Cl inic Noteon 08-27-2023 Heart and Vascular Office/Clinic Note Chief Complaint ED F/U History of Present Illness Tea Rahman is a 78-year-old female who presents today for a follow-up evaluation of hypertension. She is accompanied by an adult male. The patient is struggling to find a primary care physician and is dealing with high anxiety, particularly after her last two visits with Dr. Almanzar. She was called back due to her use of Xanax, which left Dr. Almanzar unsure of how to handle the situation. She was told she was in shock and had been dealing with multiple issues in her life. Dr. 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 She only started the medication after her heart attack and never exceeds the recommended dose. She visited [facility] due to elevated blood pressure and was checked out by a friend who is a retired nurse. She did not have a family doctor at the time. She sought help from [facility], which she does not find satisfactory. They prescribed her Zantac and other pain medication, including Cymbalta, which she had a tough time with. She stopped taking it but is still on some medication, insisting she does not need higher doses. She is trying hard to work and manage her medication. She experiences chest pressure and has been treated by several doctors at [facility] emergency room. Her nervous system has been severely affected by these experiences. She is uncertain about her carvedilol dose and has undergone a peripheral test on both legs, with a slight decrease noted in her right leg. Review of Systems PHQ Score Initial Depression Screen Score: 0 SCORE Constitutional: no fever, no sweats, no weakness Skin: no rash, no lesions, no bruising/petechiae ENMT: no sore throat, no congestion, no hoarseness Respiratory: no shortness of breath, no cough, no orthopnea, no wheezing Cardiovascular: no chest pain, no palpitations, no edema Gastrointestinal: no nausea, no vomiting, no diarrhea, no GI bleeding Genitourinary: no anuria/oliguria no hematuria Musculoskeletal: no back pain, no trauma Neurologic: no headache, no dizziness, no numbness, no weakness Psychiatric: no sleeping problems, no irritability, no anxiety/depression. Heme/Lymph: no bleeding tendency, no bruising tendency Allergy/Immunologic: no recurrent infections, no impaired immunity Additional ROS info: Except as noted in the above Review of Systems and in the History of Present Illness all other systems have been reviewed and are negative or noncontributory Physical Exam Vitals & Measurements HR: 80(Peripheral) BP: 177/94 SpO2: 97% HT: 67 in HT: 170 cm WT: 72 kg WT: 158.4 lb BMI: 24.91 General: alert, no acute distress Skin: warm, dry intact Head: atraumatic, normocephalic Neck: trachea midline, no JVD, no bruit Eye: normal conjunctiva, sclera clear ENMT: oral mucosa moist Cardiovascular: regular rate and rhythm, no murmur, normal peripheral perfusion Respiratory: lungs CTA, respirations non labored Chest wall: no deformity. Gastrointestinal: soft, non-distended, no tenderness, no guarding. Back: no tenderness, normal ROM, normal alignment. Extremities: no edema, no deformity, no trauma Neurological: oriented x 4, LOC appropriate for age, sensation equal & normal bilaterally, speech normal Psychiatric: cooperative, affect appropriate for age, normal judgement, normal psychiatric thoughts. Assessment/Plan 1. Hypertension. I will try to get in touch with her pharmacy to see what her dose is. We will see if we can increase her carvedilol. Follow up in 3 months. Portions of this record may have been created with voice recognition artificial intelligence software, specifically [employer], [employer] and or [employer]. Substitutions may have occurred with voice recognition and artificial intelligence software. ATTESTATION: Documentation services were performed after patient or guardian consented to allow [employer] to record this visit. DARVIN prescription benefit specialist and provider reviewed before signing. DARVIN: Padmini Cook. 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 Normal [facility] Comment on above: Result Comment: Elec tronically Signed By: Portillo PIPER, Rahul Varner\.br\Date and Time Signed: 08/27/23 20:52 EST\.br\Electronically Co-Signed By: Padmini Cook.br\Date and Time Co-Signed: 08/15/23 16:49 EST URINE CULTURE, ROUTINEon Bacteria identified Cx Nom (U) No growth at 48 hours Normal [facility] Comment on above: Performed By: #### L [id number] #### [facility] (BEAKER) [address] [place] [address] Urinalysis - AUTOMATEDon Appearance (U) clear [facility] Other Bilirubin Ql (U) Negative [facility] Other Color (U) orange [facility] Other Glucose Ql (U) 100 [facility] Other Hemoglobin Ql (U) small [facility] [employer] Other Ketones Ql (U) Negative [facility] Other Leukocyte esterase Test strip Ql (U) large [facility] Other Nitrite Ql (U) Positive [facility] Other pH (U) 5.0 [pH] [facility] Other Protein Ql (U) 100 [facility] Other Specific gravity (U) [Rel density] 1.010 [facility] Other Urobilinogen (U) [Mass/Vol] 1.0 mg/dL [facility] Other Urinalysis - AUTOMATED No rt [facility] Other Urine Cultureon 08-17-2023 Bacteria identified Cx Nom (U) <9,000 colonies/ml mixed bacterial skin contaminants 2 Days PERFORMED BY: [facility] [address] [place] [address] PATHOLOGIST SILK SCREEN FRAME ASSEMBLER KEYON SERNA M.D. [facility] Comment on above: Performed By: #### C UU #### [facility] [address] Bacteria identified Cx Nom (U) [facility] Other Physician Orderon 08-16-2023 Physician Order [id number] [id number] Normal [facility] Ambulatory Visit Summaryon 1 10-16-2022 Ambulatory Visit Summary TEA RAHMAN :1945 Visit Date:2023 Ambulatory Visit Instructions Your Care Team Admitting Physician - Camelia LOW CNP Attending Physician - Rahul Salas MD Primary Care Physician - NONE, XXXX Referring Physician - NONE, XXXX This Is Your Medications List Misc Prescription (PLACARD) Misc Prescription (PLACARD) acetaminophen-hydrocod one (acetaminophen-hydroco done 325 mg-5 mg oral tablet) alprazolam (alprazolam 0.5 mg Tab) amlodipine carvedilol ergocalciferol hydrocortisone-pramoxi ne topical (Proctofoam HC rectal foam) hydroxychloroquine (hydroxychloroquine 200 mg Tab) hyoscyamine (hyoscyamine 0.125 mg oral tablet, disintegrating) isosorbide mononitrate (isosorbide mononitrate 30 mg ER Tab) levothyroxine (levothyroxine 100 mcg (0.1 mg) Tab) losartan (losartan 100 mg Tab) ondansetron (ondansetron 4 mg Tab) phenazopyridine (phenazopyridine 200 mg Tab) sertraline (sertraline 25 mg Tab) Procedures Performed Appendectomy, CABG x 2 - Coronary artery bypass grafts x 2, Cardiac catheter, Cholecystectomy, KLAUS BSO - Total abdominal hysterectomy and bilateral salpingo-oophorectomy. Discharge Vitals Height 170 cm Height 67 in Weight 72 kg Weight 158.4 lb BMI 24.91 What to do next Scheduled Follow-Up Appointments Monday 11:00 AM EST With: [place] Where: [facility] Monday 12:15 PM EDT With: Rahul Salas MD Where: [facility] Medications What How Much When Why Instructions Unchanged acetaminophen-hydrocod one (acetaminophen-hydroco done 325 mg-5 mg oral tablet) 1 Tablets By Mouth Every 6 hours Primary fibromyalgia syndrome Unchanged alprazolam (alprazolam 0.5 mg Tab) 1 Tablets By Mouth Every day as needed for for anxiety as needed Unchanged amlodipine By Mouth Every day Unchanged carvedilol By Mouth Unchanged ergocalciferol 1,250 Milligram By Mouth Unchanged hydrocortisone-pramoxi ne topical (Proctofoam HC rectal foam) 1 Application By rectum 3 times a day Unchanged hydroxychloroquine (hydroxychloroquine 200 mg Tab) Unchanged hyoscyamine (hyoscyamine 0.125 mg oral tablet, disintegrating) 1 Tablets By Mouth 4 times a day Unchanged isosorbide mononitrate (isosorbide mononitrate 30 mg ER Tab) 1 Tablets By Mouth Once a day (in the morning) Unchanged levothyroxine (levothyroxine 100 mcg (0.1 mg) Tab) 1 Tablets By Mouth Every day Unchanged losartan (losartan 100 mg Tab) Unchanged Misc Prescription (PLACARD) See instructions expires in 5 years Unchanged Misc Prescription (PLACARD) See instructions expires in 5 years Unchanged ondansetron (ondansetron 4 mg Tab) 1 Tablets By Mouth Every 8 hours Unchanged phenazopyridine (phenazopyridine 200 mg Tab) 1 Tablets By Mouth After meals Unchanged sertraline (sertraline 25 mg Tab) 1 Tablets By Mouth Every day Allergies Compazine (unknown) Lipitor (unknown) VESIcare (unknown) Problems Ongoing - Any problem that you are currently receiving treatment for. 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 Pure hypercholesterolemia Recurrent cystitis Recurrent urinary tract infection Sciatica Patient Survey You may receive a survey via text or e-mail asking about your office visit. Please share your experience with us by completing your survey. We appreciate your feedback and thank you for choosing us for your care. Normal [facility] Urinalysis - AUTOMATEDon Appearance (U) clear [employer] Other Bilirubin Ql (U) Negative [employer] Other Color (U) bright orange [employer] Other Glucose Ql (U) Negative [employer] Other Hemoglobin Ql (U) Negative [facility] [employer] Other Ketones Ql (U) Negative [employer] Other Leukocyte esterase Test strip Ql (U) small [employer] Other Nitrite Ql (U) Positive [employer] Other pH (U) 6.0 [pH] [employer] Other Protein Ql (U) Negative [employer] Other Specific gravity (U) [Rel density] >1.010 [employer] Other Urobilinogen (U) [Mass/Vol] 0.2 mg/dL [employer] Other Urinalysis - AUTOMATED No rt [employer] Other Urine Cultureon 08-01-2023 Bacteria identified Cx Nom (U) Reason for Exam Dysuria Urine Reason for Exam: Dysuria : Urine No Growth 2 Days PERFORMED BY: [place] [address] PATHOLOGIST [employer]SEM[employer]ER KEYON SERNA M.D. Normal [facility] Comment on above: Performed By: #### E SR, CUU, CRP, CREAT, CBC, ADDONUAPLUS #### [place] [address] [place] #### C4, C3 #### [facility] , Bacteria identified Cx Nom (U) [employer] Other Urine culture routineOrdered By: Mary Toure on 08-01-2023 Bacteria identified Cx Nom (U) No Growth 2 Days [facility] Outside Recordson 07-27-2023 Outside Records [id number] 0TIFF Normal [facility] Consultation Noteon 07-25-20 Consultation Note [id number]#1.0 0TIFF Normal [facility] ED Note-Physicianon 07-19-20 ED Note-Physician [id number]#1.0 0TIFF Normal [facility] RAD - MISCon 07-19-2023 RAD - MISC [id number] 0TIFF Normal [facility] Heart and Vascular Office/Cl inic Noteon 07-15-2023 Heart and Vascular Office/Clinic Note Chief Complaint 1 month f/u chest pain History of Present Illness Tea Rahman is a 77-year-old female who presents for a follow-up evaluation of chest pain. She is accompanied by an adult male. The patient reports feeling tired today. She reports being hypertensive, but after taking the isosorbide on Monday morning, 05/29/2023, her blood pressure dropped to 77/40 mmHg. She felt lightheaded and started to panic. She called someone who advised her to use black licorice with a full glass of water, which brought her blood pressure back up. She reports having headaches for a couple of days after taking the black licorice. She denied having any chest pain at that time, but today she does because of stress for the last 2 days. Review of Systems Constitutional: no fever, no sweats, no weakness Skin: no rash, no lesions, no bruising/petechiae ENMT: no sore throat, no congestion, no hoarseness Respiratory: no shortness of breath, no cough, no orthopnea, no wheezing Cardiovascular: Positive for chest pain, no palpitations, no edema Gastrointestinal: no nausea, no vomiting, no diarrhea, no GI bleeding Genitourinary: no anuria/oliguria no hematuria Musculoskeletal: no back pain, no trauma Neurologic: Positive for headache, no dizziness, no numbness, no weakness Psychiatric: no sleeping problems, no irritability, no anxiety/depression. Heme/Lymph: no bleeding tendency, no bruising tendency Allergy/Immunologic: no recurrent infections, no impaired immunity Additional ROS info: Except as noted in the above Review of Systems and in the History of Present Illness all other systems have been reviewed and are negative or noncontributory Physical Exam Vitals & Measurements HR: 78(Peripheral) BP: 138/88 SpO2: 97% HT: 66 in HT: 167 cm WT: 77 kg WT: 169.4 lb BMI: 27.61 General: alert, no acute distress Skin: warm, dry intact Head: atraumatic, normocephalic Neck: trachea midline, no JVD, no bruit Eye: normal conjunctiva, sclera clear ENMT: oral mucosa moist Cardiovascular: regular rate and rhythm, no murmur, normal peripheral perfusion Respiratory: lungs CTA, respirations non labored Chest wall: no deformity. Gastrointestinal: soft, non-distended, no tenderness, no guarding. Back: no tenderness, normal ROM, normal alignment. Extremities: no edema, no deformity, no trauma Neurological: oriented x 4, LOC appropriate for age, sensation equal & normal bilaterally, speech normal Psychiatric: cooperative, affect appropriate for age, normal judgement, normal psychiatric thoughts. Assessment/Plan Tea Rahman is a 77-year-old female with a history of CAD, CABG, negative stress, and an echocardiogram. She still had some symptoms. It is unclear whether they represented something to do with her lupus or actual angina. She took isosorbide, did not do well, and it did not make her feel better. She is not having any more symptoms currently. We will stop her isosorbide. Follow up in 6 months. Portions of this record may have been created with voice recognition artificial intelligence software, specifically [employer] and or [employer]. Substitutions may have occurred due to the inherent limitations of voice recognition and artificial intelligence software. ATTESTATION: Documentation services were performed after the patient or guardian consented to allow [employer] to record this visit. DARVIN prescription benefit specialist and provider reviewed before signing. 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 Medications acetaminophen-hydrocod one 325 mg-5 mg oral tablet, 1 tab(s), Oral, q6hr alprazolam 0.5 mg Tab, 0.5 mg= 1 tab(s), Oral, TID, PRN amlodipine, Oral, Daily carvedilol, Oral ergocalciferol, 1250 mg, Oral hydroxychloroquine 200 mg Tab hyoscyamine 0.125 mg oral tablet, disintegrating, 0.125 mg= 1 tab(s), Oral, QID isosorbide mononitrate 30 mg ER Tab, 30 mg= 1 tab(s), Oral, qAM, 6 refills levothyroxine 100 mcg (0.1 mg) Tab, 100 mcg= 1 tab(s), Oral, Daily, 3 refills losartan 100 mg T (more content not included)... Normal [facility] Comment on above: Result Comment: Elec tronically Signed By: Portillo PIPER, Rahul Varner\.br\Date and Time Signed: 07/15/23 13:28 EST\.br\Electronically Co-Signed By: Veronica Fleming\.br\Date and Time Co-Signed: 06/01/23 16:35 EDT Heart and Vascular Office/Clinic Note Chief Complaint here for test results History of Present Illness Tea Rahman is a 77-year-old female presents today for a laboratory result review. The patient's stress test and echocardiogram were within normal limits. She has been feeling back and forth and is unsure what is causing her symptoms. She has a history of lupus and has been very agitated due to her insurance companies. Her urologist is at [facility] in [place], [place], and they were having problems with her insurance company. She also has a similar issue with her neurologist. She reports that the epidural injections have been helpful. She notes that the last time she received the epidural, she was in more pain than she would like. She has not had chest pain or pressure like she did before. She is agreeable to starting isosorbide. The patient reports that since discontinuing the amlodipine, her blood pressure has not decreased. Her blood pressure has been elevated a few times. Her systolic blood pressure has been around 152 mmHg, although it is not consistent at that level. Occasionally, she observed that it could be attributed to stress. She denies any pain in her legs when she walks. She does have some pain in her legs, but she attributes this to receiving an injection in her knee. She denies any pain in her calf area. Review of Systems Constitutional: no fever, no sweats, no weakness Skin: no rash, no lesions, no bruising/petechiae ENMT: no sore throat, no congestion, no hoarseness Respiratory: no shortness of breath, no cough, no orthopnea, no wheezing Cardiovascular: no chest pain, no palpitations, no edema Gastrointestinal: no nausea, no vomiting, no diarrhea, no GI bleeding Genitourinary: no anuria/oliguria no hematuria Musculoskeletal: no back pain, no trauma Neurologic: no headache, no dizziness, no numbness, no weakness Psychiatric: no sleeping problems, no irritability, no anxiety/depression. Heme/Lymph: no bleeding tendency, no bruising tendency Allergy/Immunologic: no recurrent infections, no impaired immunity Additional ROS info: Except as noted in the above Review of Systems and in the History of Present Illness all other systems have been reviewed and are negative or noncontributory Physical Exam Vitals & Measurements HR: 82(Peripheral) BP: 138/82 SpO2: 94% HT: 66 in HT: 167 cm WT: 76.6 kg WT: 168.52 lb BMI: 27.47 General: alert, no acute distress Skin: warm, dry intact Head: atraumatic, normocephalic Neck: trachea midline, no JVD, no bruit Eye: normal conjunctiva, sclera clear ENMT: oral mucosa moist Cardiovascular: regular rate and rhythm, no murmur, normal peripheral perfusion Respiratory: lungs CTA, respirations non labored Chest wall: no deformity. Gastrointestinal: soft, non-distended, no tenderness, no guarding. Back: no tenderness, normal ROM, normal alignment. Extremities: no edema, no deformity, no trauma Neurological: oriented x 4, LOC appropriate for age, sensation equal & normal bilaterally, speech normal Psychiatric: cooperative, affect appropriate for age, normal judgement, normal psychiatric thoughts. Procedure Stress test was normal. Echocardiogram was normal. Assessment/Plan Chest pain. I will prescribe isosorbide. Follow up in 3 months. Portions of this record may have been created with voice recognition artificial intelligence software, specifically [employer], [employer] and or [employer]. Substitutions may have occurred with voice recognition and artificial intelligence software. ATTESTATION: Documentation services were performed after patient or guardian consented to allow [employer] to record this visit. DARVIN prescription benefit specialist and provider reviewed before signing. DARVIN: Ruben Bernal. 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 Depression Disorder of vitamin D Essential hypertension Generalized abdominal pain Hemorrhoids History of fall Hypothyroidism Impingement syndrome of shoulder region Irritable bowel syndrome Long-term current use of opiate analgesic drug Mixed anxiety and depressive disorder OA - Osteoarthritis of knee Post-nasal drip Primary fibromyalgia syndrome Primary osteoporosis Historical Pure hypercholesterolemia Recurrent cystitis Recurrent urinary tract infection Sciatica Procedure/Surgical History Appendectomy, CABG x 2 - Coronary artery bypass grafts x 2, Cardiac catheter, Cholecystectomy, KLAUS BSO - Total abdominal hysterectomy and bilateral salpingo-oophorectomy. Medications acetaminophen-hydrocod one 325 mg-5 mg oral tablet, 1 tab(s), Oral, q6hr alprazolam 0.5 mg Tab, 0.5 mg= 1 tab(s), Oral, TID, PRN amlodipine, Oral, Daily carvedilol, Oral ergocalciferol, 1250 mg, Oral hydroxychloroquine 200 mg Tab hyoscyamine 0.125 mg oral table (more content not included)... Normal [facility] Comment on above: Result Comment: Elec tronically Signed By: Portillo PIPER, Rahul Varner\.br\Date and Time Signed: 07/15/23 12:13 EST\.br\Electronically Co-Signed By: Ruben Bernal\.br\Date and Time Co-Signed: 05/26/23 12:49 EDT Consultation Noteon 07-06-20 Consultation Note [id number] TIFF Normal [facility] Consultation Noteon 07-03-20 Consultation Note [id number] 0TIFF Normal [facility] Family Medicine Office/Clini c Noteon 06-27-2023 Family Medicine Office/Clinic Note HPI Staff Tea is a 77 year old female presenting for one month follow up meds check for mood and pain Pain characteristics: Pain location: generalized, fibro and OA Intensity:03/30 Onset: years Medication used: hydrocodone Opioids prescribed: hydrocodone/acetaminop hen 5-325mg Medication agreement UTD: due ( last one December 2022) _ Urine drug screen performed:03/28/23 Follow up for Mental Status: Medication adherence- Yes, takes medication as prescribed Medication refill needed: _ Suicidal thoughts-Not at this time Most recent LEANNE: 24 Most recent PHQ: 5 uses the xanax for anxiety and for her bowels and bladder as it relaxes things flu: refused questions/concerns: fell last mon. didn't go to the ER, bruised around her breast, pain right back side leg and down to knee. also bruised in that area. can't rate the pain it's just hard to get around BP this afternoon 196/111 after a nitro 162/100 History of Present Illness Tea Rahman is a 77-year-old female who presents today for a follow-up evaluation of hypertension. She is accompanied by an adult male. The patient is feeling unwell today, noting an increase in her blood pressure. Despite having open-heart surgery 3 years ago and typically only needing 1 nitroglycerine, she has had to take 2 in the past 2 weeks and is considering taking another due to her deteriorating condition. She has also observed a flare-up in her bladder and anticipates a bout of diarrhea, for which she believes she needs medication. She attributes these symptoms to heightened nervousness and tension. The patient has been extremely anxious, leading to frequent crying spells. She is confused about her reaction to Xanax, feeling as though it labels her as a drug addict despite never having misused it. She voiced her dissatisfaction with her crate liner, having seen many but not finding one who would truly listen to her. She mentioned that one of them would just take blood samples every visit, making it difficult for her to communicate with him. She informed this crate liner about a blood test for her bladder that revealed 100 stones, but he dismissed it. However, he later acknowledged that it did indeed occur. She expressed her desire to seek a different crate liner due to these experiences. She states that she is scheduled to see her neurologist on 12/25/2022. She fell the other day. She notes that she has had 1 fall this year and has never fallen before. She voices out that she did not request a refill from Dr. Salas, but instead called as she usually does before running out of medication. She expresses frustration and confusion over the process, as she received conflicting information. She mentions an unsuccessful attempt to connect with someone and leaving a message. Despite feeling misunderstood, she acknowledges the other democrat's perspective. She clarifies that she splits her daily pill in half, taking one half in the morning and the other at night, and does not need a refill as she does not use it three times a day. She was advised to take it daily for anxiety. She also mentions having had triple bypass surgery 3 years ago and has been following the doctors' instructions from that time. Physical Exam Vitals & Measurements T: 36.0 ?C(Temporal Artery) HR: 88(Peripheral) RR: 16 BP: 154/90 SpO2: 93% HT: 66 in HT: 167 cm WT: 75.74 kg WT: 166.628 lb BMI: 27.16 No physical exam at this time. Assessment/Plan The patient has decided to seek another physician. There is concern because of the patient's dual medication of both Xanax and opioid that I continue to ask the patient to follow strict guidelines that she can only get medication when she is seen. She continues to call when she is not having an appointment to request medication. I explained to the patient that is not how we do things, and she is very upset about this. She has asked other physicians to fill her medication and I explained to her that it is against our controlled substance agreement. Despite all of this, the patient continues to get upset and then yells and screams that nobody is listening to her, and nobody cares. The patient explains that every physician she has ever had, she does not like, and nobody ever listens to her. I explained how the habits of her refills were of a concern and patient would continue to interrupt me without listening to my concerns. At this time, I do feel that this is a hostile relationship and I do feel that the patient would do better finding somebody else who can connect with her on a better level. The patient agrees and agrees to follow up with another provider. 1. Anxiety (F41.9: Anxiety disorder, unspecified) 2. Major depressive disorder with single episode, in full remission (F32.5: Major depressive disorder, single episode, in full remission) 3. Mixed anxiety and depressive disorder (F41.8: Other specified anxiety disorders) 4. Long-term current use of opiate analgesic drug (Z79.891: care home (c (more content not included)... Normal [facility] Comment on above: Result Comment: Elec tronically Signed By: Anoop Almanzar MD\.br\Date and Time Signed: 06/27/23 08:27 EST\.br\Electronically Co-Signed By: Lucia Ramos\.br\Date and Time Co-Signed: 06/22/23 20:26 EDT Behavioral Health Sensitive Noteon 06-26-2023 Behavioral Health Sensitive Note Spoke with patient and she has decided to switch primary care physicians. Clinician has continued to offer services as needed. edge worker will continue to monitor the situation. [facility] Ambulatory Visit Summaryon 1 08-22-2022 Ambulatory Visit Summary TEA RAHMAN :1945 Visit Date:06/22/2023 Ambulatory Visit Instructions Your Diagnosis Anxiety Major depressive disorder with single episode, in full remission Mixed anxiety and depressive disorder Long-term current use of opiate analgesic drug BMI 27.0-27.9,adult Overweight Your Care Team Attending Physician - Anoop Almanzar MD Primary Care Physician - Anoop Almanzar MD This Is Your Medications List Misc Prescription (PLACARD) Misc Prescription (PLACARD) acetaminophen-hydrocod one (acetaminophen-hydroco done 325 mg-5 mg oral tablet) alprazolam (alprazolam 0.5 mg Tab) amlodipine carvedilol ergocalciferol hydrocortisone-pramoxi ne topical (Proctofoam HC rectal foam) hydroxychloroquine (hydroxychloroquine 200 mg Tab) hyoscyamine (hyoscyamine 0.125 mg oral tablet, disintegrating) isosorbide mononitrate (isosorbide mononitrate 30 mg ER Tab) levothyroxine (levothyroxine 100 mcg (0.1 mg) Tab) losartan (losartan 100 mg Tab) ondansetron (ondansetron 4 mg Tab) phenazopyridine (phenazopyridine 200 mg Tab) sertraline (sertraline 25 mg Tab) Procedures Performed Appendectomy, CABG x 2 - Coronary artery bypass grafts x 2, Cardiac catheter, Cholecystectomy, KLAUS BSO - Total abdominal hysterectomy and bilateral salpingo-oophorectomy. Discharge Vitals Temperature (Temporal Artery) 36.0 ?C Heart Rate (Peripheral) 88 Respiratory Rate 16 Blood Pressure 154/90 Height 167 cm Height 66 in Weight 75.74 kg Weight 166.628 lb BMI 27.16 What to do next Scheduled Follow-Up Appointments Monday 9:30 AM EST Where: [facility] Heart and Vascular Office/Cl inic Noteon 06-19-2023 Heart and Vascular Office/Clinic Note Chief Complaint ESTABLISH CARE History of Present Illness Tea Rahman is a 77-year-old female who presents today for an evaluation of chest pressure. She is accompanied by her today. She was referred by Dr. Almanzar to the clinic. The patient has been having intermittent sensations of chest pressure that began a few months ago. There is also a decline in her blood pressure. She consulted her regular hardwood flooring specialist when her symptoms began. During the visit, she recalled an incident from 2 months ago when she felt chest pressure for a duration of 10 minutes. The hardwood flooring specialist reassured her that her condition, including her blood pressure concern, was normal. Despite her open-heart surgery that took place on May 10, 2020, the hardwood flooring specialist conveyed that the period since the procedure was brief, making it too soon to detect any potential issues. She believes her concerns were not taken seriously. She characterizes the pressure as radiating across her chest and feels as if she is dyspneic. The symptoms occur intermittently throughout the day and do not worsen with physical activity. She can still engage in physical activity. Prior to her open-heart surgery, she had elevated high blood pressure along with chest pressure. Her current chest pressure resembles her pre-surgery symptoms in a milder intensity. She was diagnosed with fibromyalgia, lupus, and arthritis. Her treatment includes sciatic nerve epidural injection every 3 to 4 months. Due to her fibromyalgia, she feels widespread body pain, stiffness, and soreness, including her muscles and sternum. She has a family history of coronary heart disease. She has not undergone a stress test. Over the past few months, her blood pressure has been decreasing, primarily during nighttime. Based on the advice from her granddaughter, a nurse practitioner, and a retired nurse friend, she discontinued taking amlodipine for a week now. Her blood pressure has not dropped since. Review of Systems PHQ Score Initial Depression Screen Score: 1 Constitutional: no fever, no sweats, no weakness Skin: no rash, no lesions, no bruising/petechiae ENMT: no sore throat, no congestion, no hoarseness Respiratory: no shortness of breath, no cough, no orthopnea, no wheezing Cardiovascular: no chest pain, no palpitations, no edema Gastrointestinal: no nausea, no vomiting, no diarrhea, no GI bleeding Genitourinary: no anuria/oliguria no hematuria Musculoskeletal: no back pain, no trauma Neurologic: no headache, no dizziness, no numbness, no weakness Psychiatric: no sleeping problems, no irritability, no anxiety/depression. Heme/Lymph: no bleeding tendency, no bruising tendency Allergy/Immunologic: no recurrent infections, no impaired immunity Additional ROS info: Except as noted in the above Review of Systems and in the History of Present Illness all other systems have been reviewed and are negative or noncontributory Physical Exam Vitals & Measurements HR: 76(Peripheral) BP: 128/72 SpO2: 96% HT: 66 in HT: 167 cm WT: 78.6 kg WT: 172.92 lb BMI: 28.18 General: alert, no acute distress Skin: warm, dry intact Head: atraumatic, normocephalic Neck: trachea midline, no JVD, no bruit Eye: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 weather and possible allergies. The adult male reports the patient is having difficulty with her hiatal hernia. Review of Systems PHQ Score Initial Depression Screen Score: 1 Physical Exam Vitals & Measurements T: 36.4 ?C(Oral) HR: 76(Peripheral) RR: 14 BP: 126/78 SpO2: 91% HT: 66 in HT: 167 cm WT: 79.8 kg WT: 175.56 lb BMI: 28.61 General: alert, no acute distress. Patient is ambulating with a walker Cardiovascular: regular rate and rhythm, normal peripheral perfusion Respiratory: Lungs CTA, respirations non labored Extremities: no deformity, no trauma Neurological: oriented x 4, LOC appropriate for age, CN II-XII intact, motor strength equal & normal bilaterally, speech normal Assessment/Plan 1. Anxiety (F41.9: Anxiety disorder, unspecified) I believe that this may be the reason for the pressure on the chest and the shortness of breath. Encouraged the patient that she needs to go to the ER if this happens again for cardiac evaluation since the patient has an ASCVD risk. Patient understands the pros and cons of not going in. We discussed the risk in detail. 2. Primary fibromyalgia syndrome (M79.7: Fibromyalgia) Patient just picked up her narcotic. Will continue to monitor. Patient needs to be seen in 90 days for a refill. Urine drug screen is being ordered today to make sure the patient has compliance. Patient states the pain is well controlled with a half of a [place] a day. 3. Long-term current use of opiate analgesic drug (Z79.891: intermodal customer service (current) use of opiate analgesic) As above. 4. BMI 28.0-28.9,adult (Z68.28: Body mass index [BMI] 28.0-28.9, adult) BMI education given. 5. OA - Osteoarthritis of knee (M17.10: Unilateral primary osteoarthritis, unspecified knee) Again, patient uses the steroids to help and patient is doing well with the use of half a [place] twice a day. 6. Overweight (E66.3: Overweight) As per # 4. 7. Generalized abdominal pain (R10.84: Generalized abdominal pain) The patient has crampy abdominal pain. I do believe this is secondary to constipation with the opioid. When patient has a normal bowel movement, the pain goes away. Patient also has this issue with bladder stones and patient should be following up with her urologist for more monitoring. Patient is aware of this and if pain gets bad, patient will go and be seen. We will see the patient back in 3 months. Portions of this record may have been created with voice recognition artificial intelligence software, specifically [employer] and or [employer]. Substitutions may have occurred due to the inher (more content not included)... [facility] Comment on above: Result Comment: Elec tronically Signed By: Anoop Almanzar MD\.br\Date and Time Signed: 03/29/23 09:38 EDT\.br\Electronically Co-Signed By: Lucia Ramos\.br\Date and Time Co-Signed: 03/28/23 19:25 EDT RAD - MISCon 03-29-2023 RAD - MISC [id number] 0CD:127 [facility] Ambulatory Visit Summaryon 0 03-28-2023 Ambulatory Visit Summary TEA RAHMAN :1945 Visit Date:03/28/2023 Ambulatory Visit Instructions Your Diagnosis Anxiety Primary fibromyalgia syndrome Long-term current use of opiate analgesic drug BMI 28.0-28.9,adult OA - Osteoarthritis of knee Overweight Generalized abdominal pain Your Care Team Attending Physician - Anoop Almanzar MD Primary Care Physician - Anoop Almanzar MD This Is Your Medications List alprazolam (alprazolam 0.5 mg Tab) Contact prescribing physician if questions or concerns acetaminophen-hydrocod one (acetaminophen-hydroco done 325 mg-5 mg oral tablet) amlodipine carvedilol ergocalciferol hydrocortisone-pramoxi ne topical (Proctofoam HC rectal foam) hydroxychloroquine (hydroxychloroquine 200 mg Tab) hyoscyamine (hyoscyamine 0.125 mg oral tablet, disintegrating) levothyroxine (levothyroxine 100 mcg (0.1 mg) Tab) losartan (losartan 100 mg Tab) ondansetron (ondansetron 4 mg Tab) phenazopyridine (phenazopyridine 200 mg Tab) sertraline (sertraline 25 mg Tab) Procedures Performed Appendectomy, CABG x 2 - Coronary artery bypass grafts x 2, Cardiac catheter, Cholecystectomy, KLAUS BSO - Total abdominal hysterectomy and bilateral salpingo-oophorectomy. Discharge Vitals Temperature (Oral) 36.4 ?C Heart Rate (Peripheral) 76 Respiratory Rate 14 Blood Pressure 126/78 Height 167 cm Height 66 in Weight 79.8 kg Weight 175.56 lb BMI 28.61 What to do next Scheduled Follow-Up Appointments Monday 1:20 PM EDT With: Anoop Almanzar MD Where: [facility] Ambulatory Visit Summary TEA RAHMAN :1945 Visit Date:03/28/2023 Ambulatory Visit Instructions Your Diagnosis Anxiety Primary fibromyalgia syndrome Long-term current use of opiate analgesic drug BMI 28.0-28.9,adult OA - Osteoarthritis of knee Overweight Generalized abdominal pain Your Care Team Attending Physician - Anoop Almanzar MD. Primary Care Physician - Anoop Almanzar MD. This Is Your Medications List acetaminophen-hydrocod one (acetaminophen-hydroco done 325 mg-5 mg oral tablet) alprazolam (alprazolam 0.5 mg Tab) amlodipine carvedilol ergocalciferol hydrocortisone-pramoxi ne topical (Proctofoam HC rectal foam) hydroxychloroquine (hydroxychloroquine 200 mg Tab) hyoscyamine (hyoscyamine 0.125 mg oral tablet, disintegrating) levothyroxine (levothyroxine 100 mcg (0.1 mg) Tab) losartan (losartan 100 mg Tab) ondansetron (ondansetron 4 mg Tab) phenazopyridine (phenazopyridine 200 mg Tab) sertraline (sertraline 25 mg Tab) Procedures Performed Appendectomy, CABG x 2 - Coronary artery bypass grafts x 2, Cardiac catheter, Cholecystectomy, KLAUS BSO - Total abdominal hysterectomy and bilateral salpingo-oophorectomy. Discharge Vitals Temperature (Oral) 36.4 ?C Heart Rate (Peripheral) 76 Respiratory Rate 14 Blood Pressure 126/78 Height 167 cm Height 66 in Weight 79.8 kg Weight 175.56 lb BMI 28.61 What to do next Scheduled Follow-Up Appointments Monday 1:20 PM EDT With: Anoop Almanzar MD Where: [facility] RAD - MISCon 03-21-2023 RAD - MIS [id number] 0CD:127 Normal [facility] Ambulatory Visit Summaryon 0 03-20-2023 Ambulatory Visit Summary TEA RAHMAN :1945 Visit Date:03/20/2023 Ambulatory Visit Instructions Your Diagnosis Abdominal pain Primary fibromyalgia syndrome BMI 29.0-29.9,adult Over weight Tests Performed Urnls Dip Stick Non-Auto w/o Micrscpy POC 55148 Your Care Team Attending Physician - Anoop Almanzar MD Primary Care Physician - Anoop Almanzar MD This Is Your Medications List acetaminophen-hydrocod one (acetaminophen-hydroco done 325 mg-5 mg oral tablet) alprazolam (alprazolam 0.5 mg Tab) amlodipine carvedilol ergocalciferol hydrocortisone topical (Proctozone HC 2.5% topical cream) hydroxychloroquine (hydroxychloroquine 200 mg Tab) hyoscyamine (hyoscyamine 0.125 mg oral tablet, disintegrating) levothyroxine (levothyroxine 100 mcg (0.1 mg) Tab) losartan (losartan 100 mg Tab) methylPREDNISolone (Medrol Dosepack 4 mg Tab) ondansetron (ondansetron 4 mg Tab) phenazopyridine (phenazopyridine 200 mg Tab) sertraline (sertraline 25 mg Tab) Procedures Performed Appendectomy, CABG x 2 - Coronary artery bypass grafts x 2, Cardiac catheter, Cholecystectomy, KLAUS BSO - Total abdominal hysterectomy and bilateral salpingo-oophorectomy. Discharge Vitals Temperature (Oral) 36.5 ?C Heart Rate (Peripheral) 78 Respiratory Rate 16 Blood Pressure 140/72 Height 167 cm Height 66 in Weight 80.9 kg Weight 177.98 lb BMI 29.01 What to do next Scheduled Follow-Up Appointments Monday 1:00 PM EDT With: Yohan PIPER, Anoop Lal Where: [facility] Noteon 03-20-2023 Family Medicine Office/Clinic Note Chief Complaint abd pain and constipation, bladder pressure HPI Staff Patient presents for abd discomfort and constipation Abdominal Pain: Duration: off and on since bladder stones removed in October_ Location: very low abd and across her rectum Quality/Character: not pain it's a pressure, constant pushing down Severity: severe questions/concerns: pressure and urge to urinate but only goes drops then feels constipated constant pressure but went alot yesterday and wasn't formed does have hemorrhoids has a crate liner not working out for her wants to find a new one needs her proctofoam refilled for the hemorrhoids and also dr santana gave her hyoscamine for blow outs but refills ran out as she doesn't use all the time, can she get more recent phq9-15 recent leanne-15 urine collected and processed History of Present Illness - Pt states she has IBS - Yesterday with diarrhea, today feels bloated and constipated - States she is unsure what is wrong. - Pt asking for ProctoFoam for Hemorrhoids - Would like another crate liner. Review of Systems PHQ Score Initial Depression Screen Score: 3 Physical Exam Vitals & Measurements T: 36.5 ?C(Oral) HR: 78(Peripheral) RR: 16 BP: 140/72 SpO2: 90% HT: 66 in HT: 167 cm WT: 80.9 kg WT: 177.98 lb BMI: 29.01 General: alert, no acute distress ENMT: oral mucosa moist, Cardiovascular: regular rate and rhythm, normal peripheral perfusion Respiratory: Lungs CTA, respirations non labored Extremities: no deformity, no trauma Neurological: oriented x 4, LOC appropriate for age, CN II-XII intact, motor strength equal & normal bilaterally, speech normal Abdomen: Soft, Nontender, Non-distended, + BS Assessment/Plan 1. Abdominal pain (R10.9: Unspecified abdominal pain) - KUB, U/A was normal. - If patient is constipated will try Miralax - If not will refer back to Urology as the patient maybe having some urinary retention Ordered: Urnls Dip Stick Non-Auto w/o Micrscpy POC 26928 2. Primary fibromyalgia syndrome (M79.7: Fibromyalgia) - Will do a small steroid burst. - Then when patient finds a better [employer] Manager we will refer Ordered: methylPREDNISolone, = 1 packet(s), Oral, As Directed, as directed on package labeling, X 6 day(s), # 21 tab(s), Refills(s) 0, Pharmacy: [facility] #[id number], 167, cm, 03/20/23 11:45:00 EDT, Height/Length Dosing, 80.9, kg, 03/20/23 11:45:00 EDT, Weight Dosing 3. Hemorrhoids (K64.9: Unspecified hemorrhoids) - Proctofoam 4. BMI 29.0-29.9,adult (Z68.29: Body mass index [BMI] 29.0-29.9, adult) - BMI education given Ordered: methylPREDNISolone, = 1 packet(s), Oral, As Directed, as directed on package labeling, X 6 day(s), # 21 tab(s), Refills(s) 0, Pharmacy: [facility] #[id number], 167, cm, 03/20/23 11:45:00 EDT, Height/Length Dosing, 80.9, kg, 03/20/23 11:45:00 EDT, Weight Dosing Body Mass Index (BMI) documented 3008F Current tobacco non-user 1036F Depression Screening Positive 3354F Most recent diastolic blood pressure <80 mm Hg 3078F Most recent systolic blood pressure >= 140 mm Hg 3077F Patient screen for fall risk: no falls in last year or 1 fall with no injury in last year 1101F 5. Over weight (E66.3: Overweight) - As above Ordered: methylPREDNISolone, = 1 packet(s), Oral, As Directed, as directed on package labeling, X 6 day(s), # 21 tab(s), Refills(s) 0, Pharmacy: [facility] #[id number], 167, cm, 03/20/23 11:45:00 EDT, Height/Length Dosing, 80.9, kg, 03/20/23 11:45:00 EDT, Weight Dosing Body Mass Index (BMI) documented 3008F Current tobacco non-user 1036F Depression Screening Positive 3354F Most recent diastolic blood pressure <80 mm Hg 3078F Most recent systolic blood pressure >= 140 mm Hg 3077F Patient screen for fall risk: no falls in last year or 1 fall with no injury in last year 1101F Orders: hydrocortisone-pramoxi ne topical, 1 elías, Rectal, TID, 10 gram, Refill(s) 0, [facility] #[id number], 167, cm, 03/20/23 11:45:00 EDT, Height/Length Dosing, 80.9, kg, 03/20/23 11:45:00 EDT, Weight Dosing Follow-up No qualifying data available Problem List/Past Medical History Ongoing Anemia Anxiety Atherosclerosis aorta Atherosclerosis of aorta Bladder stone BMI 29.0-29.9,adult Depression Disorder of vitamin D Essential hypertension Hemorrhoids History of fall Hypothyroidism Impingement syndrome of shoulder region Irritable bowel syndrome Long-term current use of opiate analgesic drug Mixed anxiety and depressive disorder OA - Osteoarthritis of knee Primary fibromyalgia syndrome Primary osteoporosis Historical Pure hypercholesterolemia Recurrent cystitis Recurrent urinary tract infection Sciatica Procedure/Surgical History Appendectomy, CABG x 2 - Coronary artery bypass grafts x 2, Cardiac catheter, Cholecystectomy, KLAUS BSO - Total abdominal hysterectomy and bilateral salpingo-oophorectomy. Medications acetaminophen-hydrocod one (more content not included)... Normal [facility] Comment on above: Result Comment: Elec tronically Signed By: Yohan PIPER, Anoop Lal\.br\Date and Time Signed: 03/20/23 12:22 EDT Consultation Noteon 03-09-20 Consultation Note [id number] 0CD:127 Normal [facility] XR chest 2V*on 03-02-2023 XR chest 2V* [facility] Main [address] [address] XRay Report Signed Patient: Tea Rahman MR#: [id number] : 1945 Acct:[id number] Age/Sex: 77 / F ADM Date: 03/02/23 Loc: ICXD Room: Type: REG CLI Attending Dr: Rashard Epstein MD Copies to: Rashard Epstein MD Ordering Provider: Rashard Epstein MD Date of Service: 03/02/23 XR/XR chest 2V*: ILD Plain film chest 2 view HISTORY: Shortness of breath. Interstitial lung disease COMPARISON: None FINDINGS: SUPPORT DEVICES: None POSTSURGICAL CHANGES: Sternal wires. HEART: Within normal limits PULMONARY KELLEY: Within normal limits MEDIASTINUM: Atherosclerosis. LUNGS AND PLEURA: No acute lung process, pleural effusion or pneumothorax identified. Mild basilar interstitial lung prominence BONY STRUCTURES: Thoracic spondylosis. ADDITIONAL FINDINGS None XR/XR chest 2V* IMPRESSION: No acute process. Mild basilar interstitial prominence. Impression dictated by: Zen Yo M.D.03/02/2023 4:11 PM Dictation Location: [place] [address] Transcribed By: [facility] 03/02/23 161 Dictated By: Zen Yo DO 03/02/23 161 Signed By: 03/02/23 161 Normal [facility] Consultation Noteon 02-07-20 Consultation Note [id number] 0CD:127 Normal [facility] Amorphous urine sedimentOrde red By: Rashard Epstein on 01-24-2023 Amorphous sediment LM Ql (Urine sed) See comment Negative [facility] Comment on above: Unable to obtain acc urate result due to color interference. Automated epithelial cells c ount in urine sediment (number/area)Ordered By: Rashard Epstein on 01-24-2023 Epithelial cells Auto (Urine sed) [#/Area] 5-9 [HPF] 0-2 [facility] Automated erythrocytes count in urine sediment (number/area)Ordered By: Rashard Epstein on 01-24-2023 RBC Auto (Urine sed) [#/Area] None seen [HPF] 0-4 [facility] Automated leukocytes count i n urine sediment (number/area)Ordered By: Rashard Epstein on 01-24-2023 WBC Auto (Urine sed) [#/Area] 5-9 [HPF] 0-4 [facility] Automated urine specific gra vity by refractometryOrdered By: Rashard Epstein on 01-24-2023 Specific gravity Refractometry automated (U) [Rel density] 1.015 1.001-1.030 [facility] Basophils Auto (Bld) [#/Vol] Ordered By: Rashard Epstein on 01-24-2023 Basophils (Bld) [#/Vol] 0.0 10*3/uL 0.0-0.2 [facility] Basophils/100 WBC Auto (Bld) Ordered By: Rashard Epstein on 01-24-2023 Basophils/100 WBC (Bld) 0.5 % . [facility] Bilirubin Auto test strip Ql (U)Ordered By: Rsahard Epstein on 01-24-2023 Bilirubin Ql (U) See comment Negative [facility] Comment on above: Unable to obtain acc urate result due to color interference. C reactive protein [Mass/vol ume] in Serum or PlasmaOrdered By: Rashard Epstein on 01-24-2023 CRP [Mass/Vol] 0.6 mg/dL 0.0-0.5 [facility] C-Reactive Proteinon 023 C-Reactive Protein 0.6 mg/dL High 0.0-0.5 [facility] Comment on above: Result Comment: PERF ORMED BY: [place] [address] PATHOLOGIST SILK SCREEN FRAME ASSEMBLER KEYON SERNA M.D. Performed By: #### E SR, CUU, CRP, CREAT, CBC, ADDONUAPLUS #### [facility] [address] [place] [address] #### C4, C3 #### [facility] , Complement C3on 01-24-2023 Complement C3 162 mg/dL Normal 82-167 [facility] Comment on above: Result Comment: Perf ormed at: CB - [facility] [address] [id number] [employer] Teacher: Paul Dumont PhD, Phone: [phone] Performed By: #### E SR, CUU, CRP, CREAT, CBC, ADDONUAPLUS #### [facility] [address] [place] [address] #### C4, C3 #### [facility] , Complement C4on 01-24-2023 Complement C4 36 mg/dL Normal 12-38 [facility] Comment on above: Result Comment: PERF ORMED BY: [place] [address] PATHOLOGIST SILK SCREEN FRAME ASSEMBLER KEYON SERNA M.D. Performed By: #### E SR, CUU, CRP, CREAT, CBC, ADDONUAPLUS #### [address] #### C4, C3 #### [facility] , Complete Blood Count Auto Di ffon 01-24-2023 Basophils (Bld) [#/Vol] 0.0 10*3/uL Normal 0.0-0.2 [facility] Comment on above: Performed By: #### E SR, CUU, CRP, CREAT, CBC, ADDONUAPLUS #### [address] #### C4, C3 #### [facility] , Basophils/100 WBC (Bld) 0.5 % Normal . [facility] Comment on above: Performed By: #### E SR, CUU, CRP, CREAT, CBC, ADDONUAPLUS #### [address] #### C4, C3 #### [facility] , Eosinophils (Bld) [#/Vol] 0.2 10*3/uL Normal 0.0-0.45 [facility] Comment on above: Performed By: #### E SR, CUU, CRP, CREAT, CBC, ADDONUAPLUS #### [address] #### C4, C3 #### [facility] , Eosinophils/100 WBC (Bld) 3.3 % Normal . [facility] Comment on above: Performed By: #### E SR, CUU, CRP, CREAT, CBC, ADDONUAPLUS #### [address] #### C4, C3 #### [facility] , Erythrocyte distribution width (RBC) [Ratio] 14.2 % Normal 11.9-15.3 [facility] Comment on above: Performed By: #### E SR, CUU, CRP, CREAT, CBC, ADDONUAPLUS #### [address] #### C4, C3 #### [facility] , Hematocrit (Bld) [Volume fraction] 40.7 % Normal 34.0-46.4 [facility] Comment on above: Performed By: #### E SR, CUU, CRP, CREAT, CBC, ADDONUAPLUS #### [address] #### C4, C3 #### [facility] , Hemoglobin (Bld) [Mass/Vol] 13.2 g/dL Normal 11.8-15.4 [facility] Comment on above: Performed By: #### E SR, CUU, CRP, CREAT, CBC, ADDONUAPLUS #### [address] #### C4, C3 #### [facility] , Lymphocytes (Bld) [#/Vol] 1.9 10*3/uL Normal 1.00-4.8 [facility] Comment on above: Performed By: #### E SR, CUU, CRP, CREAT, CBC, ADDONUAPLUS #### [address] #### C4, C3 #### [facility] , Lymphocytes/100 WBC (Bld) 30.8 % Normal . [facility] Comment on above: Performed By: #### E SR, CUU, CRP, CREAT, CBC, ADDONUAPLUS #### [place] [address] [place] #### C4, C3 #### [facility] , MCH (RBC) [Entitic mass] 29.5 pg Normal 24.7-34.3 [facility] Comment on above: Performed By: #### E SR, CUU, CRP, CREAT, CBC, ADDONUAPLUS #### [place] [address] [place] #### C4, C3 #### [facility] , MCV (RBC) [Entitic vol] 90.9 fL Normal 80-100 [facility] Comment on above: Performed By: #### E SR, CUU, CRP, CREAT, CBC, ADDONUAPLUS #### [address] #### C4, C3 #### [facility] , Mean Corpuscular HGB Conc 32.5 g/dL Normal 32.0-35.0 [facility] Comment on above: Performed By: #### E SR, CUU, CRP, CREAT, CBC, ADDONUAPLUS #### [address] #### C4, C3 #### [facility] , Monocytes (Bld) [#/Vol] 0.4 10*3/uL Normal 0.0-0.8 [facility] Comment on above: Performed By: #### E SR, CUU, CRP, CREAT, CBC, ADDONUAPLUS #### [place] [address] [place] #### C4, C3 #### [facility] , Monocytes/100 WBC (Bld) 7.1 % Normal . [facility] Comment on above: Performed By: #### E SR, CUU, CRP, CREAT, CBC, ADDONUAPLUS #### [place] [address] [place] #### C4, C3 #### [facility] , Neutrophils (Bld) [#/Vol] 3.7 10*3/uL Normal 1.8-7.7 [facility] Comment on above: Performed By: #### E SR, CUU, CRP, CREAT, CBC, ADDONUAPLUS #### [address] #### C4, C3 #### [facility] , Neutrophils/100 WBC (Bld) 58.3 % Normal . [facility] Comment on above: Performed By: #### E SR, CUU, CRP, CREAT, CBC, ADDONUAPLUS #### [address] #### C4, C3 #### [facility] , NRBC% 0.1 /100{WBC} Normal 0-0.5 [facility] Comment on above: Performed By: #### E SR, CUU, CRP, CREAT, CBC, ADDONUAPLUS #### [address] #### C4, C3 #### [facility] , Platelet mean volume (Bld) [Entitic vol] 7.3 fL Normal 6.3-10.7 [facility] Comment on above: Performed By: #### E SR, CUU, CRP, CREAT, CBC, ADDONUAPLUS #### [address] #### C4, C3 #### [facility] , Platelets (Bld) [#/Vol] 239 10*3/uL Normal 150-450 [facility] Comment on above: Performed By: #### E SR, CUU, CRP, CREAT, CBC, ADDONUAPLUS #### [address] #### C4, C3 #### [facility] , RBC (Bld) [#/Vol] 4.48 10*6/uL Normal 3.60-5.00 [facility] Comment on above: Performed By: #### E SR, CUU, CRP, CREAT, CBC, ADDONUAPLUS #### [facility] [address] [place] [address] #### C4, C3 #### [facility] , WBC (Bld) [#/Vol] 6.3 10*3/uL Normal 3.8-11.6 [facility] Comment on above: Performed By: #### E SR, CUU, CRP, CREAT, CBC, ADDONUAPLUS #### [facility] [address] [place] [address] #### C4, C3 #### [facility] , Creatinineon 01-24-2023 Creatinine [Mass/Vol] 0.96 mg/dL Normal 0.60-1.20 [facility] Comment on above: Performed By: #### E SR, CUU, CRP, CREAT, CBC, ADDONUAPLUS #### [facility] [address] [place] [address] [place] #### C4, C3 #### [facility] , GFR/1.73 sq M.predicted MDRD (S/P/Bld) [Vol rate/Area] mL/min/{1.73_m2} Normal [facility] Comment on above: Performed By: #### E SR, CUU, CRP, CREAT, CBC, ADDONUAPLUS #### [facility] [address] [place] [address] [place] #### C4, C3 #### [facility] , Creatinine [Mass/volume] in Serum or PlasmaOrdered By: Rashard Epstein on 01-24-2023 Creatinine [Mass/Vol] 0.96 mg/dL 0.60-1.20 [facility] Dipstick and Microscopicon 0 01-24-2023 Appearance (U) Slightly Cloudy Critically abnormal Clear [facility] Comment on above: Order Comment: Name Collection Type:: Clean-Voided Midstream Performed By: #### E SR, CUU, CRP, CREAT, CBC, ADDONUAPLUS #### [facility] [address] [place] [address] #### C4, C3 #### [facility] , Bacteria,Urine 1+ High None Seen [facility] Comment on above: Order Comment: Name Collection Type:: Clean-Voided Midstream Performed By: #### E SR, CUU, CRP, CREAT, CBC, ADDONUAPLUS #### [address] #### C4, C3 #### [facility] , Bilirubin,Urine Normal Negative [facility] Comment on above: Order Comment: Name Collection Type:: Clean-Voided Midstream Result Comment: Unab le to obtain accurate result due to color interference. Performed By: #### E SR, CUU, CRP, CREAT, CBC, ADDONUAPLUS #### [address] #### C4, C3 #### [facility] , Color (U) [place] Critically abnormal Yellow [facility] Comment on above: Order Comment: Name Collection Type:: Clean-Voided Midstream Performed By: #### E SR, CUU, CRP, CREAT, CBC, ADDONUAPLUS #### [facility] [address] [place] [address] #### C4, C3 #### [facility] , Glucose Ql (U) Normal Normal [facility] Comment on above: Order Comment: Name Collection Type:: Clean-Voided Midstream Result Comment: Unab le to obtain accurate result due to color interference. Performed By: #### E SR, CUU, CRP, CREAT, CBC, ADDONUAPLUS #### [facility] [address] [place] [address] #### C4, C3 #### [facility] , Ketones Ql (U) Normal Negative [facility] Comment on above: Order Comment: Name Collection Type:: Clean-Voided Midstream Result Comment: Unab le to obtain accurate result due to color interference. Performed By: #### E SR, CUU, CRP, CREAT, CBC, ADDONUAPLUS #### [address] #### C4, C3 #### [facility] , Leukocyte esterase Test strip Ql (U) Normal Negative [facility] Comment on above: Order Comment: Name Collection Type:: Clean-Voided Midstream Result Comment: Unab le to obtain accurate result due to color interference. Performed By: #### E SR, CUU, CRP, CREAT, CBC, ADDONUAPLUS #### [address] #### C4, C3 #### [facility] , Nitrite,Urine Normal Negative [facility] Comment on above: Order Comment: Name Collection Type:: Clean-Voided Midstream Result Comment: Unab le to obtain accurate result due to color interference. Performed By: #### E SR, CUU, CRP, CREAT, CBC, ADDONUAPLUS #### [address] #### C4, C3 #### [facility] , Occult Blood,Urine Normal Negative [facility] Comment on above: Order Comment: Name Collection Type:: Clean-Voided Midstream Result Comment: Unab le to obtain accurate result due to color interference. Performed By: #### E SR, CUU, CRP, CREAT, CBC, ADDONUAPLUS #### [address] #### C4, C3 #### [facility] , pH,Urine Normal 5.0-9.0 [facility] Comment on above: Order Comment: Name Collection Type:: Clean-Voided Midstream Result Comment: Unab le to obtain accurate result due to color interference. Performed By: #### E SR, CUU, CRP, CREAT, CBC, ADDONUAPLUS #### [address] #### C4, C3 #### [facility] , Protein,Urine Normal Negative [facility] Comment on above: Order Comment: Name Collection Type:: Clean-Voided Midstream Result Comment: Unab le to obtain accurate result due to color interference. Performed By: #### E SR, CUU, CRP, CREAT, CBC, ADDONUAPLUS #### [address] #### C4, C3 #### [facility] , RBC,Urine None Seen Normal 0-4 [facility] Comment on above: Order Comment: Name Collection Type:: Clean-Voided Midstream Performed By: #### E SR, CUU, CRP, CREAT, CBC, ADDONUAPLUS #### [address] #### C4, C3 #### [facility] , Specificy [place],Urine 1.015 Normal 1.001-1.030 [facility] Comment on above: Order Comment: Name Collection Type:: Clean-Voided Midstream Performed By: #### E SR, CUU, CRP, CREAT, CBC, ADDONUAPLUS #### [address] #### C4, C3 #### [facility] , Squamous Epithelial Cell,Urine 5-9 High 0-2 [facility] Comment on above: Order Comment: Name Collection Type:: Clean-Voided Midstream Performed By: #### E SR, CUU, CRP, CREAT, CBC, ADDONUAPLUS #### [address] #### C4, C3 #### [facility] , Urobilinogen,Urine Normal Normal [facility] Comment on above: Order Comment: Name Collection Type:: Clean-Voided Midstream Result Comment: Unab le to obtain accurate result due to color interference. Performed By: #### E SR, CUU, CRP, CREAT, CBC, ADDONUAPLUS #### [facility] [address] [place] [address] #### C4, C3 #### [facility] , WBC,Urine 5-9 High 0-4 [facility] Comment on above: Order Comment: Name Collection Type:: Clean-Voided Midstream Performed By: #### E SR, CUU, CRP, CREAT, CBC, ADDONUAPLUS #### [facility] [address] [place] [address] #### C4, C3 #### [facility] , Yeast,Urine 3+ Critically abnormal None Seen [facility] Comment on above: Order Comment: Name Collection Type:: Clean-Voided Midstream Result Comment: PERF ORMED BY: [address] [place] [address] PATHOLOGIST [employer]K S[employer]EN [employer]AME ASSEMBLER KEYON SERNA M.D. Performed By: #### E SR, CUU, CRP, CREAT, CBC, ADDONUAPLUS #### [facility] [address] [place] [address] #### C4, C3 #### [facility] , Eosinophils Auto (Bld) [#/Vo l]Ordered By: Rashard Epstein on 01-24-2023 Eosinophils (Bld) [#/Vol] 0.2 10*3/uL 0.0-0.45 [facility] Eosinophils/100 WBC Auto (Bl d)Ordered By: Rashard Epstein on 01-24-2023 Eosinophils/100 WBC (Bld) 3.3 % . [facility] Erythrocyte Sedimentation Ra duyen 01-24-2023 ESR (Bld) [Velocity] 38 mm/h High 0-29 [facility] Comment on above: Result Comment: PERF ORMED BY: [place] [address] PATHOLOGIST SILK SCREEN FRAME ASSEMBLER KEYON SERNA M.D. Performed By: #### E SR, CUU, CRP, CREAT, CBC, ADDONUAPLUS #### [facility] [address] #### C4, C3 #### [facility] , Erythrocyte distribution wid th Auto (RBC) [Ratio]Ordered By: Rashard Epstein on 01-24-2023 Erythrocyte distribution width (RBC) [Ratio] 14.2 % 11.9-15.3 [facility] Erythrocyte sedimentation ra te by Photometric methodOrdered By: Rashard Epstein on 01-24-2023 ESR Photometric method (Bld) [Velocity] 38 mm/hr 0-29 [facility] Hematocrit Auto (Bld) [Volum e fraction]Ordered By: Rashard Epstein on 01-24-2023 Hematocrit (Bld) [Volume fraction] 40.7 % 34.0-46.4 [facility] Hemoglobin [Mass/volume] in BloodOrdered By: Rashard Epstein on 01-24-2023 Hemoglobin (Bld) [Mass/Vol] 13.2 g/dL 11.8-15.4 [facility] Ketones Test strip (U) [Mass /Vol]Ordered By: Rashard Epstein on 01-24-2023 Ketones (U) [Mass/Vol] See comment Negative [facility] Comment on above: Unable to obtain acc urate result due to color interference. Leukocytes [#/volume] correc edwige for nucleated erythrocytes in Blood by Automated counOrdered By: Rashard Epstein on 01-24-2023 WBC corrected for nucl RBC Auto (Bld) [#/Vol] 6.3 10*3/uL 3.8-11.6 [facility] Lymphocytes Auto (Bld) [#/Vo l]Ordered By: Rashard Epstein on 01-24-2023 Lymphocytes (Bld) [#/Vol] 1.9 10*3/uL 1.00-4.8 [facility] Lymphocytes/100 WBC Auto (Bl d)Ordered By: Rashard Epstein on 01-24-2023 Lymphocytes/100 WBC (Bld) 30.8 % . [facility] MCH Auto (RBC) [Entitic mass ]Ordered By: Rashard Epstein on 01-24-2023 MCH (RBC) [Entitic mass] 29.5 pg 24.7-34.3 [facility] MCHC Auto (RBC) [Mass/Vol]Or dered By: Rashard Epstein on 01-24-2023 MCHC (RBC) [Mass/Vol] 32.5 g/dL 32.0-35.0 [facility] MCV Auto (RBC) [Entitic vol] Ordered By: Rashard Epstein on 01-24-2023 MCV (RBC) [Entitic vol] 90.9 fL 80-100 [facility] Monocytes Auto (Bld) [#/Vol] Ordered By: Rashard Epstein on 01-24-2023 Monocytes (Bld) [#/Vol] 0.4 10*3/uL 0.0-0.8 [facility] Monocytes/100 WBC Auto (Bld) Ordered By: Rashard Epstein on 01-24-2023 Monocytes/100 WBC (Bld) 7.1 % . [facility] Neutrophils Auto (Bld) [#/Vo l]Ordered By: Rashard Epstein on 01-24-2023 Neutrophils (Bld) [#/Vol] 3.7 10*3/uL 1.8-7.7 [facility] Neutrophils/100 WBC Auto (Bl d)Ordered By: Rashard Epstein on 01-24-2023 Neutrophils/100 WBC (Bld) 58.3 % . [facility] No Panel InformationOrdered By: Rashard Epstein on 01-24-2023 Estimated GFR (CKD-EPI) > 60.0 mL/Min [facility] Creatinine Clearance (Chem N/A [facility] Nucleated erythrocytes [Pres ence] in Blood by Automated countOrdered By: Rashard Epstein on 01-24-2023 Nucleated RBC Auto Ql (Bld) 0.1 /100{WBC} 0-0.5 [facility] Platelet mean volume Auto (B ld) [Entitic vol]Ordered By: Rashard Epstein on 01-24-2023 Platelet mean volume (Bld) [Entitic vol] 7.3 fL 6.3-10.7 [facility] Platelets Auto (Bld) [#/Vol] Ordered By: Rashard Epstein on 01-24-2023 Platelets (Bld) [#/Vol] 239 10*3/uL 150-450 [facility] Protein Auto test strip (U) [Mass/Vol]Ordered By: Rashard Epstein on 01-24-2023 Protein (U) [Mass/Vol] See comment Negative [facility] Comment on above: Unable to obtain acc urate result due to color interference. RBC Auto (Bld) [#/Vol]Ordere d By: Rashard Epstein on 01-24-2023 RBC (Bld) [#/Vol] 4.48 10*6/uL 3.60-5.00 [facility] Serum or plasma complement C 3 measurement (mass/volume)Ordered By: Rashard Epstein on 01-24-2023 Complement C3 [Mass/Vol] 162 mg/dL 82-167 [facility] Comment on above: Performed at: [address] Director: Paul Dumont PhD, Phone: [phone] Serum or plasma complement C 4 measurement (mass/volume)Ordered By: Rashard Epstein on 01-24-2023 Complement C4 [Mass/Vol] 36 mg/dL 12-38 [facility] Urine Cultureon 01-24-2023 Bacteria identified Cx Nom (U) ORGANISM: Ghazal glabrata (O:CANGLA) [place] Count 20,000 PERFORMED BY: [place] [address] PATHOLOGIST SILK SCREEN FRAME ASSEMBLER KEYON SERNA M.D. Normal [facility] Comment on above: Performed By: #### E SR, CUU, CRP, CREAT, CBC, ADDONUAPLUS #### [address] #### C4, C3 #### [facility] , Urine appearanceOrdered By: Rashard Epstein on 01-24-2023 Appearance (U) Slightly cloudy Clear [facility] Urine bacteria detection by automated methodOrdered By: Rashard Epstein on 01-24-2023 Bacteria Auto Ql (U) 1+ None Seen [facility] Urine colorOrdered By: Arthur Epstein on 01-24-2023 Color (U) [place] Yellow [facility] Urine culture routineOrdered By: Rashard Epstein on 01-24-2023 Bacteria identified Cx Nom (U) Ghazal glabrata [facility] Urine glucose measurement by automated test strip (mass/volume)Ordered By: Rashard Epstein on 01-24-2023 Glucose Auto test strip (U) [Mass/Vol] See comment Normal [facility] Comment on above: Unable to obtain acc urate result due to color interference. Urine leukocyte esterase det ection by automated test stripOrdered By: Rashard Epstein on 01-24-2023 Leukocyte esterase Auto test strip Ql (U) See comment Negative [facility] Comment on above: Unable to obtain acc urate result due to color interference. Urine nitrite detection by a utomated test stripOrdered By: Rashard Epstein on 01-24-2023 Nitrite Auto test strip Ql (U) See comment Negative [facility] Comment on above: Unable to obtain acc urate result due to color interference. Urobilinogen Test strip (U) [Mass/Vol]Ordered By: Rashard Epstein on 01-24-2023 Urobilinogen (U) [Mass/Vol] See comment Normal [facility] Comment on above: Unable to obtain acc urate result due to color interference. WBC Auto (Bld) [#/Vol]Ordere d By: Rashard Epstein on 01-24-2023 WBC (Bld) [#/Vol] 6.3 10*3/uL 3.8-11.6 [facility] Yeast detection in urine sed iment by light microscopyOrdered By: Rashard Epstein on 01-24-2023 Yeast LM Ql (Urine sed) 3+ [HPF] None Seen [facility] pH Auto test strip (U)Ordere d By: Rashard Epstein on 01-24-2023 pH (U) See comment 5.0-9.0 [facility] Comment on above: Unable to obtain acc urate result due to color interference. Family Medicine Office/Clini c Noteon 12-22-2022 Family Medicine Office/Clinic Note Chief Complaint est HPI Staff establish care, discuss health Establish Care: History: lupus, IBS. hypothyroid, double bypass, arthritis Last provider: Max Any recent labs: 12/11 Health Maintenance UTD: Colonoscopy: due Mammogram: due Pelvic/Pap: ? covid: none Acute: Current issues/complaints: concerns with bladders stones, [place] History of Present Illness Tea Rahman is a 77-year-old female here to establish care as a prior patient of Dr. Santana. She is accompanied by her today. 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 She worked in [email or web address] before retiring. Mrs. Rahman has a history of bladder stones and is followed by a urologist in [place]. She had a scope completed 10/21/2022 and, per patient, they stopped counting stones. She had also been followed by a urologist in [place]. When he moved his practice to [place], [place], she followed him for care. Due to issues getting to those appointments, she was referred to her current urologist. She states that went through several installations, but it is unclear who did it and what she means by installation. Right now she complains of pressure on her bladder. It feels like she needs to urinate, but she is unable to. When the patient was diagnosed with lupus, she was referred to a crate liner in [place]. She tried a different crate liner in [place] where she stayed until that provider retired. Since then, she has been to 3 or 4 rheumatologists. Right now she is followed by Dr. Epstein who she likes. While other specialists have denied her lupus diagnosis, Dr. Epstein treats her with hydroxychloroquine. Patient feels that her lupus is well managed. When she does have a lupus flare-up, she will feel very fatigued. She is followed by neurology/ Dr. Clark for sciatica. He reportedly told her that every joint in her body has arthritis in it. Mrs. Rahman takes Xanax for anxiety and [place] for joint pain as sparingly as possible. Over the past few years, she has been taking a half a Xanax and a half a [place] every morning as well as at night. Occasionally she will take a whole pain pill at night when her pain is extreme. She admits to doing this last night. Her expresses concern that patient's medications seem to cause her fatigue. She explains that she has always been a very busy person and that feeling fatigued like this is abnormal for her. Review of Systems PHQ Score Initial Depression Screen Score: 1 Physical Exam Vitals & Measurements HR: 86(Peripheral) BP: 140/80 SpO2: 94% HT: 66 in HT: 167 cm WT: 82 kg WT: 180.4 lb BMI: 29.4 General: alert, no acute distress ENMT: oral mucosa moist, no pharyngeal erythema or exudate Cardiovascular: regular rate and rhythm, normal peripheral perfusion Respiratory: Lungs CTA, respirations non labored Extremities: no deformity, no trauma Neurological: oriented x 4, LOC appropriate for age, CN II-XII intact, motor strength equal & normal bilaterally, speech normal Assessment/Plan 1. Depression (F32.A: Depression, unspecified) Will continue on medication as before as well as the Xanax PRN. 2. Atherosclerosis of aorta (I70.0: Atherosclerosis of aorta) Patient is on statin and aspirin. She should continue as before. 3. Mixed anxiety and depressive disorder (F41.8: Other specified anxiety disorders) Will continue on Xanax. Discussed pros and cons to control substance agreement and it was signed. Discussed the rules moving forward. Will send in a prescription today. 4. Primary fibromyalgia syndrome (M79.7: Fibromyalgia) Patient is on [place] for this. Again, discussed laws and regulations with this medication. She will comply. Will follow as needed. 5. Essential hypertension (I10: Essential (primary) hypertension) Patient is at goal at this time. Continue to monitor. 6. Long-term current use of opiate analgesic drug (Z79.891: care home (current) use of opiate analgesic) We will continue to monitor use of [place]. 7. Bladder stone (N21.0: Calculus in bladder) Will refer to urology for second opinion. Will see the patient back in 2 months and we will readjust the patient's medication as needed. Documentation services were performed after patient or guardian consented to allow Sheryljose Trevor Anthony to record this visit. DARVIN prescription benefit specialist and provider reviewed before signing. DARVIN: India Vázquez. Follow-up No qualifying data available Problem List/Past Medical History Ongoing Anemia Anxiety Atherosclerosis aorta Atherosclerosis of aorta Bladder stone BMI 29.0-29.9,adult Depression Disorder of vitamin D Essential hypertension History of fall Hypothyroidism Impingement syndrome of shoulder region Irritable bowel syndrome Long-term current use of opiate analgesic drug Mixed anxiety and depressive disorder Mixed anxiety and depressive (more content not included)... [facility] Comment on above: Result Comment: Elec tronically Signed By: Anoop Almanzar MD\.br\Date and Time Signed: 12/22/22 14:14 EDT\.br\Electronically Co-Signed By: India Aguilar\.br\Date and Time Co-Signed: 12/21/22 17:26 EDT Physician Referralon 023 Physician Referral [id number]. 00CD:127 [facility] Lab Reportson 12-21-2022 Lab Reports [id number] 0CD:127 [facility] Medication Consenton 023 Medication Consent [id number] 0CD:127 [facility] Ambulatory Visit Summaryon 0 12-20-2022 Ambulatory Visit Summary TEA RAHMAN :1945 Visit Date:12/20/2022 Ambulatory Visit Instructions Your Diagnosis Depression Atherosclerosis of aorta, Atherosclerosis aorta Mixed anxiety and depressive disorder Primary fibromyalgia syndrome Essential hypertension Long-term current use of opiate analgesic drug Bladder stone Your Care Team Attending Physician - Anoop Almanzar MD Primary Care Physician - Anoop Almanzar MD This Is Your Medications List acetaminophen-hydrocod one (acetaminophen-hydroco done 325 mg-5 mg oral tablet) alprazolam (alprazolam 0.5 mg Tab) amlodipine carvedilol cefuroxime (cefuroxime 500 mg oral tablet) ergocalciferol hydrocortisone topical (Proctozone HC 2.5% topical cream) hydrocortisone topical (hydrocortisone Top 2.5% Crm) hydroxychloroquine (hydroxychloroquine 200 mg Tab) hyoscyamine (hyoscyamine 0.125 mg oral tablet, disintegrating) levothyroxine (levothyroxine 100 mcg (0.1 mg) Tab) losartan (losartan 100 mg Tab) ondansetron (ondansetron 4 mg Tab) phenazopyridine (phenazopyridine 200 mg Tab) sertraline (sertraline 25 mg Tab) Procedures Performed Appendectomy, CABG x 2 - Coronary artery bypass grafts x 2, Cardiac catheter, Cholecystectomy, KLAUS BSO - Total abdominal hysterectomy and bilateral salpingo-oophorectomy. Discharge Vitals Heart Rate (Peripheral) 86 Blood Pressure 140/80 Height 167 cm Height 66 in Weight 82 kg Weight 180.4 lb BMI 29.4 What to do next Scheduled Follow-Up Appointments Monday 1:00 PM EDT With: Yohan PIPER, Anoop Lal Where: [facility] Lab Reportson 12-14-2022 Lab Reports [id number] CD:127 [facility] Consultation Noteon 11-23-19 Consultation Note [id number] 0CD:127 [facility] Consultation Noteon 11-09-19 Consultation Note [id number] CD:127 [facility] Operative Reporton Operative Report [id number] 0CD:127 [facility] Formson 11-03-2022 Forms [id number] 0CD:127 [facility] Family Medicine Office/Clini c Noteon 11-02-2022 Family Medicine Office/Clinic Note Chief Complaint discuss recent medical issues HPI Staff Tea is a 77 year old female who presents to [facility]. She is a current pt of Dr. Santana however new to [facility]. Tea has a hx of HTN and hypothyroidism. Patient is here for follow up on hypertension. She currently takes Losartan 100mg QD, Amlodipine 5mg QD, and Carvedilol 12.5mg BID as directed without adverse effects. How often are you checking your blood pressure? couple times a week_ What are your average readings? 115-120-60s 70s_ Are you compliant with your diet? yes Do you exercise: yes, tries her best Are you compliant with your medications?yes Difficulty affording your medications? no Do you have side effects from the medication? None Do you have any of the following symptoms? Chest Pain? nopressure but no pain Palpitations? no BUI/SOB? no BUI some shortness of breath Headache? no Peripheral Edema? no Light Headed-ness? no Patient is here for follow up on hypotension. She currently takes Levothyroxine 100mcg qAM as directed without adverse effects. Do you have any of the following symptoms? Change in energy level? no Weight change? no Heat/cold intolerance? yesgets chills last few months and will shiver Hair/skin/nail changes? yesnails all breaking off Change in bowels? no Last TSH: Sep 2022 Colonoscopy: 8-9 years ago and doesn't need anymore Mammogram: due ( none 10-15 years) pap/pelvic: hysterectomy labs: 2021 flu/covid: refused any concerns or issues: confused with all the medical things going on with her recent bladder stones and feels overwhelmed History of Present Illness bladder stones with a scope. saw dr epstein and felt something in the lunga and referred to production proofreader but has not heard from the office numbness in the left arm and new onset and seeing verito for the back Review of Systems PHQ Score Initial Depression Screen Score: 3 Constitutional: no fever, no chills, no sweats, no weakness +fatigue Skin: no Jaundice, no rash, no lesions, nopetechiae ENMT: no ear pain, no sore throat, no congestion, no hoarseness Respiratory: no shortness of breath, no cough, no orthopnea, no wheezing Cardiovascular: no chest pain, no palpitations, no edema Gastrointestinal: no nausea, no vomiting, no diarrhea, no GI bleeding Genitourinary: recent systoscope showed bladder stones, still some frequency Musculoskeletal: muscle paimn numbness left shoulder comes and goes Neurologic: no headache, no dizziness, moderate numbness, no weakness Psychiatric: stress and anxious, some problems sleeping Additional ROS info: Except as noted in the above Review of Systems and in the History of Present Illness all other systems have been reviewed and are negative or noncontributory. Physical Exam Vitals & Measurements HR: 68(Peripheral) RR: 16 BP: 126/72 SpO2: 96% HT: 66 in HT: 167.4 cm WT: 82.7 kg WT: 181.94 lb BMI: 29.51 General: alert, no acute distress Skin: warm, dry Head: no trauma, normocephalic Neck: Trachea midline, no adenopathy, no tenderness Eye: normal conjunctiva, sclera clear ENMT: TM's clear, oral mucosa moist, no pharyngeal erythema or exudate Cardiovascular: regular rate and rhythm, normal peripheral perfusion Respiratory: Lungs CTA, respirations non labored Gastrointestinal: soft, non distended, no tenderness, no guarding. Back: trigger point pains, spasms both SCM Extremities: no deformity, no trauma Neurological: oriented x 4, LOC appropriate for age, CN II-XII intact, motor strength equal & normal bilaterally, sensation equal & normal bilaterally, speech normal Psychiatric: anxious. Assessment/Plan 1. Bladder stones (N21.0: Calculus in bladder) curredntly in work up will send results to me. 2. Anxiety (F41.9: Anxiety disorder, unspecified) stress mgm explained, exercise explained. 3. Essential hypertension (I10: Essential (primary) hypertension) Much improved meds reviewed. 4. Hypothyroidism (E03.9: Hypothyroidism, unspecified) Stable continue present meds. 5. Primary fibromyalgia syndrome (M79.7: Fibromyalgia) Steroid burst explained. Orders: predniSONE, 10 mg = 1 tab(s), Oral, Daily, 7 tabs the first day decrease by one tablet a day, X 7 day(s), # 28 cap(s), Refills(s) 0, Pharmacy: [id number], 167.4, cm, 11/02/22 15:26:00 EDT, Height/Length Dosing, 82.7, kg, 11/02/22 15:26:00 EDT, We... Body Mass Index (BMI) documented 3008F Current tobacco non-user 1036F Depression Screening Positive 3354F Influenza immunization status assessed 1030F Most recent diastolic blood pressure <80 mm Hg 3078F Patient screen for fall risk: no falls in last year or 1 fall with no injury in last year 1101F Systolic BP <130 mm Hg (Most Recent) 3074F Follow-up No qualifying data available Problem List/Past Medical History Ongoing Anemia Anxiety Atherosclerosis aorta BMI 29.0-29.9,adult Disorder of vitamin D Essential hypertension History of fall (more content not included)... Normal [facility] Comment on above: Result Comment: Elec tronically Signed By: MAX PIPER, ASHUTOSH Esparza\.br\Date and Time Signed: 11/02/22 16:14 EDT Stone Analysison 10-25-2022 Calculi description See Note [facility] Comment on above: Result Comment: (NOT E) Specimen consists of numerous brown calculi. The total weight is 684 mg. Performed By: #### A STONE #### [address] [id number] [employer] Teacher: Jamel Valentine MD Composition See Note [facility] Comment on above: Result Comment: (NOT E) Calculi composed primarily of uric acid. INTERPRETIVE INFORMATION: Calculi (Stone) analysis Calculi are the products of physiological processes that yield crystalline compounds in a matrix of biological compounds and blood. Matrix components are not reported. The clinically significant crystalline components identified in calculi specimens are reported. Gross description may not be consistent with composition determined by FTIR analysis. Performed By: [facility] [address] [place] [id number] [employer] Developer: Reggie Lawrence MD, PhD Performed By: #### A STONE #### [facility] [employer] [address] [place] [id number] [employer] Teacher: Jamel Valentine MD Mass 684 mg [facility] Comment on above: Performed By: #### A STONE #### [facility] [address] [place] [address] [employer] Resource Center Teacher: Jamel Valentine MD CULTURE URINEon 09-20-2022 CULTURE URINE Culture Observations : NO GROWTH. Normal [facility] Comment on above: Performed By: #### U RCX #### [facility] [address] [address] [address] Gigi Guzman FREE T3on 09-20-2022 FREE T3 1.79 pg/mlL Critically low 2.18-3.98 [facility] Comment on above: Performed By: #### F T3, TSH #### [facility] [address] [address] [address] Gigi Guzman FREE T4on 09-20-2022 Free T4 [Mass/Vol] 0.97 ng/dL Normal 0.76-1.46 The [facility] Comment on above: Performed By: #### F T4 #### [facility] [address] [address] [address] Gigi Guzman TSHon 09-20-2022 TSH 2.154 uIU/mL Normal 0.358-3.[address] [facility] Comment on above: Performed By: #### F T3, TSH #### [facility] [address] [address] [address] Gigi Guzman CULTURE URINEon 08-17-2022 CULTURE URINE Culture Observations : LIGHT GROWTH OF MIXED GENITAL GARFIELD. NO POTENTIAL PATHOGENS SEEN. Normal [facility] Comment on above: Performed By: #### U RCX #### [facility] [address] [place] [address] Dr. Gigi Guzman Automated erythrocytes count in urine sediment (number/area)Ordered By: Rashard Epstein on 05-17-2022 RBC Auto (Urine sed) [#/Area] 3-4 [HPF] 0-4 [facility] Automated leukocytes count i n urine sediment (number/area)Ordered By: Rashard Epstein on 05-17-2022 WBC Auto (Urine sed) [#/Area] 10-19 [HPF] 0-4 [facility] Automated urine hyaline cast s count (number/volume)Ordered By: Rashard Epstein on 05-17-2022 Hyaline casts Auto (U) [#/Vol] None seen [LPF] 0-1 [facility] Comment on above: --- 05/17/221731 -- -Ur Hyaline Artist Relationship Manager previously reported as: None Seen /LPF Basophils Auto (Bld) [#/Vol] Ordered By: Rashard Epstein on 05-17-2022 Basophils (Bld) [#/Vol] 0.1 10*3/uL 0.0-0.2 [facility] Basophils/100 WBC Auto (Bld) Ordered By: Rashard Epstein on 05-17-2022 Basophils/100 WBC (Bld) 0.9 % . [facility] Bilirubin Test strip Ql (U)O rdered By: Rashard Epstein on 05-17-2022 Bilirubin Ql (U) Negative Negative [facility] Blood hemoglobin measurement (mass/volume)Ordered By: Rashard Epstein on 05-17-2022 Hemoglobin (Bld) [Mass/Vol] 13.3 g/dL 11.8-15.4 [facility] Blood leukocytes automated c ount (number/volume)Ordered By: Rashard Epstein on 05-17-2022 WBC (Bld) [#/Vol] 5.5 10*3/uL 4.5-11.0 [facility] C reactive protein [Mass/vol ume] in Serum or PlasmaOrdered By: Rashard Epstein on 05-17-2022 CRP [Mass/Vol] 0.9 mg/dL 0.0-1.0 [facility] Casts typing in urine sedime nt by light microscopyOrdered By: Rashard Epstein on 05-17-2022 Casts LM Nom (Urine sed) None seen [LPF] None Seen [facility] Comment on above: --- 05/17/221731 -- -Ur Other Artist Relationship Manager previously reported as: None Seen /LPF Color Auto (U)Ordered By: Alta Epstein on 05-17-2022 Color (U) Yellow Yellow [facility] Creatinine and Glomerular fi ltration rate.predicted panel (S/P/Bld)Ordered By: Rashard Epstein on 05-17-2022 Creatinine [Mass/Vol] 0.84 mg/dL 0.44-1.03 [facility] Eosinophils Auto (Bld) [#/Vo l]Ordered By: Rashard Epstein on 05-17-2022 Eosinophils (Bld) [#/Vol] 0.3 10*3/uL 0.0-0.45 [facility] Eosinophils/100 WBC Auto (Bl d)Ordered By: Rashard Epstein on 05-17-2022 Eosinophils/100 WBC (Bld) 4.7 % . [facility] Erythrocyte distribution wid th Auto (RBC) [Ratio]Ordered By: Rashard Epstein on 05-17-2022 Erythrocyte distribution width (RBC) [Ratio] 14.7 % 11.9-15.3 [facility] Erythrocyte sedimentation ra te by Photometric methodOrdered By: Rashard Epstein on 05-17-2022 ESR Photometric method (Bld) [Velocity] 47 mm/hr 0-29 [facility] Estimated glomerular filtrat ion rate (GFR) non- AmericanOrdered By: Rashard Epstein on 05-17-2022 GFR/1.73 sq M.predicted among non-blacks MDRD (S/P/Bld) [Vol rate/Area] > 60 mL/Min [facility] Hematocrit Auto (Bld) [Volum e fraction]Ordered By: Rashard Epstein on 05-17-2022 Hematocrit (Bld) [Volume fraction] 40.6 % 34.0-46.4 [facility] Ketones Auto test strip (U) [Mass/Vol]Ordered By: Rashard Epstein on 05-17-2022 Ketones (U) [Mass/Vol] Negative Negative [facility] - Hematology and Cell countsOrdered By: Rashard Epstein on 05-17-2022 Nucleated RBC/100 WBC (Bld) [Ratio] 0.1 % 0-0.5 [facility] Lymphocytes Auto (Bld) [#/Vo l]Ordered By: Rashard Epstein on 05-17-2022 Lymphocytes (Bld) [#/Vol] 1.6 10*3/uL 1.00-4.8 [facility] Lymphocytes/100 WBC Auto (Bl d)Ordered By: Rashard Epstein on 05-17-2022 Lymphocytes/100 WBC (Bld) 29.3 % . [facility] MCH Auto (RBC) [Entitic mass ]Ordered By: Rashard Epstein on 05-17-2022 MCH (RBC) [Entitic mass] 30.3 pg 24.7-34.3 [facility] MCHC Auto (RBC) [Mass/Vol]Or dered By: Rashard Epstein on 05-17-2022 MCHC (RBC) [Mass/Vol] 32.6 g/dL 32.0-35.0 [facility] MCV Auto (RBC) [Entitic vol] Ordered By: Rashard Epstein on 05-17-2022 MCV (RBC) [Entitic vol] 93.0 fL 80-100 [facility] Monocytes Auto (Bld) [#/Vol] Ordered By: Rashard Epstein on 05-17-2022 Monocytes (Bld) [#/Vol] 0.5 10*3/uL 0.0-0.8 [facility] Monocytes/100 WBC Auto (Bld) Ordered By: Rashard Epstein on 05-17-2022 Monocytes/100 WBC (Bld) 8.6 % . [facility] Neutrophils Auto (Bld) [#/Vo l]Ordered By: Rashard Epstein on 05-17-2022 Neutrophils (Bld) [#/Vol] 3.1 10*3/uL 1.8-7.7 [facility] Neutrophils/100 WBC Auto (Bl d)Ordered By: Rashard Epstein on 05-17-2022 Neutrophils/100 WBC (Bld) 56.5 % . [facility] Nitrite Test strip Ql (U)Ord ered By: Rashard Epstein on 05-17-2022 Nitrite Ql (U) Negative Negative [facility] No Panel InformationOrdered By: Rashard Epstein on 05-17-2022 Estimated GFR () > 60 mL/Min [facility] Comment on above: GFR estimated refere nce range: According to KDOQI guidelines, <60 ml/min/1.73m2 is sufficient to diagnose a patient with chronic kidney disease. Pharmacy Creatinine Clearance (Chem N/A [facility] Platelet mean volume Auto (B ld) [Entitic vol]Ordered By: Rashard Epstein on 05-17-2022 Platelet mean volume (Bld) [Entitic vol] 7.0 fL 6.3-10.7 [facility] Platelets Auto (Bld) [#/Vol] Ordered By: Rashard Epstein on 05-17-2022 Platelets (Bld) [#/Vol] 278 10*3/uL 150-450 [facility] Protein Auto test strip (U) [Mass/Vol]Ordered By: Rashard Epstein on 05-17-2022 Protein (U) [Mass/Vol] Negative Negative [facility] RBC Auto (Bld) [#/Vol]Ordere d By: Rashard Epstein on 05-17-2022 RBC (Bld) [#/Vol] 4.37 10*6/uL 3.60-5.00 [facility] Specific gravity Auto test s trip (U) [Rel density]Ordered By: Rashard Epstein on 05-17-2022 Specific gravity (U) [Rel density] 1.009 1.001-1.030 [facility] Squamous epithelial cells de tection in urine sediment by light microscopyOrdered By: Rashard Epstein on 05-17-2022 Epithelial cells.squamous LM Ql (Urine sed) 5-9 [HPF] 0-2 [facility] Urine bacteria detection by automated methodOrdered By: Rashard Epstein on 05-17-2022 Bacteria Auto Ql (U) None seen None Seen [facility] Urine clarity by refractomet ry automatedOrdered By: Rashard Epstein on 05-17-2022 Clarity Refractometry automated (U) Clear Clear [facility] Urine glucose measurement by automated test strip (mass/volume)Ordered By: Rashard Epstein on 05-17-2022 Glucose Auto test strip (U) [Mass/Vol] Normal mg/dL Normal [facility] Urine hemoglobin detection b y automated test stripOrdered By: Rashard Epstein on 05-17-2022 Hemoglobin Auto test strip Ql (U) Negative Negative [facility] Urine leukocyte esterase det ection by automated test stripOrdered By: Rashard Epstein on 05-17-2022 Leukocyte esterase Auto test strip Ql (U) 2+ Negative [facility] Urobilinogen Auto test strip (U) [Mass/Vol]Ordered By: Rashard Epstein on 05-17-2022 Urobilinogen (U) [Mass/Vol] Normal mg/dL Normal [facility] pH Auto test strip (U)Ordere d By: Rashard Epstein on 05-17-2022 pH (U) 5.5 [pH] 5.0-9.0 [facility] CULTURE URINEon 03-17-2022 CULTURE URINE Isolate 1 Klebsiella pneumoniae >100,000 cfu/mL of ORGANISM 1 Klebsiella pneumoniae ANTIBIOTIC M.I.C RX STATUS Ampicillin 16 R F Ampicillin/Sulbactam 4 S F Piperacillin/Tazobacta m <=4 S F Cefazolin <=4 S F Ceftazidime <=1 S F Ceftriaxone <=1 S F Ertapenem <=0.5 S F Imipenem <=0.25 S F Amikacin <=2 S F Gentamicin <=1 S F Tobramycin <=1 S F Ciprofloxacin <=0.25 S F Levofloxacin <=0.12 S F Nitrofurantoin 64 I F Trimethoprim/Sulfameth oxazole <=20 S F Normal [facility] Comment on above: Performed By: #### U RCX #### [facility] [address] [place] [address] Dr. Gigi Guzman UA (CLEAN/CATCH) PAN WASHER/MICRO I F IND.on 03-14-2022 Bilirubin Ql (U) Negative Normal NEGATIVE [facility] Comment on above: Performed By: #### U ACSIND ICRO #### [facility] [address] [place] [address] Dr. Gigi Guzman Clarity (U) CLEAR Normal CLEAR [facility] Comment on above: Performed By: #### U ACSIND, UMICRO #### [facility] [address] [place] [address] Dr. Gigi Guzman Color (U) DK. YELLOW Normal YELLOW [facility] Comment on above: Performed By: #### U ACSIND, UMICRO #### [facility] [address] [place] [address] Dr. Gigi Guzman Glucose Ql (U) Negative Normal NEGATIVE [facility] Comment on above: Performed By: #### U ACSIND, UMICRO #### [facility] [address] [place] [address] Dr. Gigi Guzman Hemoglobin Ql (U) Negative Normal NEGATIVE [facility] Comment on above: Performed By: #### U ACSIND, UMICRO #### [facility] [address] [place] [address] Dr. Gigi Guzman Ketones Ql (U) Negative Normal NEGATIVE [facility] Comment on above: Performed By: #### U ACSIND, UMICRO #### [facility] [address] [place] [address] Dr. Gigi Guzman LEUKOCYTES TRACE Abnormal NEGATIVE [facility] Comment on above: Performed By: #### U ACSIND, UMICRO #### [facility] [address] [place] [address] Dr. Gigi Guzman Nitrite Ql (U) Positive Abnormal NEGATIVE [facility] Comment on above: Performed By: #### U ACSKRYSTLE UMICRO #### [facility] [address] [place] [address] Dr. Gigi Guzman pH (U) 5.0 [pH] Normal 5-9 [facility] Comment on above: Performed By: #### U ACSKRYSTLE ICRO #### [facility] [address] [place] [address] Dr. Gigi Guzman SPEC GRAVITY 1.010 Normal 1.005-<=1.02 5 [facility] Comment on above: Performed By: #### U ACSKRYSTLE UMICRO #### [facility] [address] [place] [address] Dr. Gigi Guzman UA PROTEIN Negative Normal NEGATIVE/ TRACE [facility] Comment on above: Performed By: #### U ACSKRYSTLE UMICRO #### [facility] [address] [place] [address] Dr. Gigi Guzman UR MICRO IND INDICATED Normal [facility] Comment on above: Performed By: #### U ACSKRYSTLE, UMICRO #### [facility] [address] [place] [address] Dr. Gigi Guzman Urobilinogen Qn (U) 0.2 {Maren'U}/dL Normal 0.2 - 1. 0 [facility] Comment on above: Performed By: #### U ACSIND, UMICRO #### [facility] [address] [place], [place] [id number] Dr. Gigi Guzman URINE MICROSCOPIC ONLYon BACTERIA SMALL Abnormal NONE SEEN [facility] Comment on above: Performed By: #### U ACSIND, UMICRO #### [facility] [address] [place] [address] Dr. Gigi Guzman Bacteria identified Cx Nom (U) INDICATED Normal [facility] Comment on above: Performed By: #### U ACSIND, UMICRO #### [facility] [address] [place] [address] Dr. Gigi Guzman CAST NONE SEEN Normal NONE SEEN [facility] Comment on above: Performed By: #### U ACSIND, UMICRO #### [facility] [address] [place] [address] Dr. Gigi Guzman Crystals LM Nom (Urine sed) NONE SEEN Normal NONE SEEN [facility] Comment on above: Performed By: #### U ACSIND, UMICRO #### [facility] [address] [place] [address] Dr. Gigi Guzman Epithelial cells LM Ql (Urine sed) FEW Abnormal NONE SEEN /RARE [facility] Comment on above: Performed By: #### U ACSKRYSTLE, UMICRO #### [facility] [address] [place] [address] Dr. Gigi Guzman MUCOUS NONE SEEN Normal NONE SEEN [facility] Comment on above: Performed By: #### U ACSIND, UMICRO #### [facility] [address] [place] [address] Dr. Gigi Guzman RBC 0-2 Normal 0-2 [facility] Comment on above: Performed By: #### U ACSIND, UMICRO #### [facility] [address] [place] [address] Dr. Gigi Guzman WBC 10-20 Abnormal NONE SEEN [facility] Comment on above: Performed By: #### U ACSIND, UMICRO #### [facility] [address] [place] [address] Dr. Gigi Guzman CULTURE URINEon 01-25-2022 CULTURE URINE Culture Observations : LIGHT GROWTH OF MIXED GENITAL GARFIELD. NO POTENTIAL PATHOGENS SEEN. Normal [facility] Comment on above: Performed By: #### U RCX #### [facility] [address] [address] [address] Gigi Guzman Urinalysis - AUTOMATEDon Appearance (U) cloudy [employer] Other Bilirubin Ql (U) Negative [facility] Other Color (U) orange [employer] Other Glucose Ql (U) Negative [employer] [facility] Other Hemoglobin Ql (U) Negative [facility] [employer] Other Ketones Ql (U) Negative [facility] Other Leukocyte esterase Test strip Ql (U) trace [employer] Other Nitrite Ql (U) Positive [employer] [facility] Other pH (U) 5.0 [pH] [employer] Other Protein Ql (U) Negative [employer] Other Specific gravity (U) [Rel density] >1.030 [employer] Other Urobilinogen (U) [Mass/Vol] 0.2 mg/dL [employer] Other Urinalysis - AUTOMATED No rt [employer] Other Urine Cultureon 12-21-2021 Urine Culture >100,000 [employer] Other ANAon 07-06-2017 KAILEY PATTERN HOMOGENEOUS AND SPECKLED Normal [facility] Comment on above: Performed By: #### 0 0121, 86784 ####[facility] [address], [facility] KAILEY SCREEN 1:160 Abnormal <1:40,1:40 [facility] Comment on above: Performed By: #### 0 0121, 49997 ####[facility] [place] [address], [facility] ANTI DNAon 07-06-2017 ANTI DNA <1:10 Normal <1:10 [facility] Comment on above: Performed By: #### 0 0121, 25504 ####[facility] [facility] [place] [address], [facility] ANTI-BETA 2 GLYCOPROTEIN 1on 07-06-2017 ANTI B2GP1 IGA 4.5 a units Normal 0.0-19.9 [facility] Comment on above: Performed By: #### 0 0121, 78791 ####[facility] [facility] [place] [place] [address], [facility] ANTI B2GP1 IGG 0.7 g units Normal 0.0-19.9 [facility] Comment on above: Performed By: #### 0 0121, 18783 ####[facility] [facility] [place] [place] [address], [facility] ANTI B2GP1 IGM 3.8 m units Normal 0.0-19.9 [facility] Comment on above: Performed By: #### 0 0121, 30550 ####[facility] [facility] [place] [address], [facility] ANTI-ENAon 07-06-2017 ANTI SM Negative Normal NEG,NEGATIVE ,Neg [facility] Comment on above: Performed By: #### 0 0121, 05974 ####[facility] [place] [address], [facility] ANTI SM/ANTIRNP Negative Normal NEG,NEGATIVE ,Neg [facility] Comment on above: Performed By: #### 0 0121, 10387 ####[facility] [place] [address], [facility] ANTICARDIOLIPIN ANTIBODYon 1 09-05-2016 CARDIOLIPIN IGA 3.4 APL Normal 0.0-21.9 [facility] Comment on above: Performed By: #### 0 0121, 40275 ####[facility] [place] [address], [facility] CARDIOLIPIN IGG 7.7 GPL Normal 0.0-22.9 [facility] Comment on above: Performed By: #### 0 0121, 63726 ####[facility] [place] [address], [facility] CARDIOLIPIN IGM 1.2 MPL Normal 0.0-10.9 [facility] Comment on above: Performed By: #### 0 0121, 64709 ####[facility] [facility].[address] C REACTIVE PROTEINon 017 C reactive protein (CRP) 6.1 mg/L Normal 0.0-7.0 [facility] Comment on above: Performed By: #### 1 0238, 00723, 61654 ####[facility] [facility].[address] CBC W/DIFFon 07-06-2017 Basophils Auto #/vol (Bld) 0.4 % Normal 0.0-2.0 [facility] Comment on above: Performed By: #### 5 0103, 18818 ####[facility] [facility].[address] Eosinophils/100 leukocytes 2.9 % Normal 0.0-5.0 [facility] Comment on above: Performed By: #### 5 0103, 23171 ####[facility] [place] [address], [facility] Erythrocyte distribution width Auto Ratio (RBC) 15.1 % Normal 11.5-16.9 [facility] Comment on above: Performed By: #### 5 0103, 56213 ####[facility] [place] [address], [facility] Erythrocytes (RBC) 4.47 mill/mm3 Normal 3.50-5.50 [facility] Comment on above: Performed By: #### 5 102, 64747 ####[facility] Hematocrit (HCT) 40.7 % Normal 36.0-48.0 [facility] Comment on above: Performed By: #### 5 102, 91902 ####[facility] Hemoglobin mass conc (Bld) 13.5 g/dL Normal 12.0-15.0 [facility] Comment on above: Performed By: #### 5 102, 16687 ####[facility] Lymphocytes/100 leukocytes 27.3 % Normal 20.0-40.0 [facility] Comment on above: Performed By: #### 5 102, 79307 ####[facility] [facility] MCH 30.1 pg Normal 24.0-32.0 [facility] Comment on above: Performed By: #### 5 102, 82534 ####[facility] MCHC mass conc (RBC) 33.0 g/dL Normal 32.0-36.0 [facility] Comment on above: Performed By: #### 5 102, 08728 ####[facility] [facility] MCV 91.1 fL Normal 80.0-100.0 [facility] Comment on above: Performed By: #### 5 102, 96568 ####[facility] [place] [address], [facility] METHOD Normal RBC Morphology Normal [facility] Comment on above: Performed By: #### 5 0103, 82035 ####[facility] MONOS 6.6 % Normal 2-8 [facility] Comment on above: Performed By: #### 5 010, 29014 ####[facility] Neutrophils/100 leukocytes 62.8 % Normal 50-70 [facility] Comment on above: Performed By: #### 5 010, 38786 ####[facility] PLAT CNT 209 Thou/mm3 Normal 100-400 [facility] Comment on above: Performed By: #### 5 010, 83449 ####[facility] WBC (Leukocytes) 7.9 Thou/mm3 Normal 4.0-10.0 [facility] Comment on above: Performed By: #### 5 010, 07601 ####[facility] [address] COMP METABOLIC PANELon 07-06 Alanine aminotransferase (ALT) 17 U/L Normal 7-52 [facility] Comment on above: Performed By: #### 0 0121, 11617 ####[facility] Albumin 4.4 g/dL Normal 3.5-5.7 [facility] Comment on above: Performed By: #### 0 0121, 09824 ####[facility] ALKALINE PHOSPH 54 IU/L Normal 34-104 [facility] Comment on above: Performed By: #### 0 0121, 71627 ####[facility] [place] [address], [facility] Aspartate aminotransferase (AST) 25 U/L Normal 13-39 [facility] Comment on above: Performed By: #### 0 0121, 22342 ####[facility] [place] [address], [facility] Bilirubin (total) 0.4 mg/dL Normal 0.3-1.0 [facility] Comment on above: Performed By: #### 0 0121, 63531 ####[facility] [facility] [place] [address], [facility] Calcium 9.4 mg/dL Normal 8.6-10.3 [facility] Comment on above: Performed By: #### 0 0121, 59607 ####[place] [id number] [facility] [place] [address], [facility] Chloride 105 mmol/L Normal 98-107 [facility] Comment on above: Performed By: #### 0 0121, 03268 ####[place] [id number] [place] [address], [facility] CO2 28 mmol/L Normal 21-31 [facility] Comment on above: Performed By: #### 0 0121, 67577 ####[place] [id number] [facility] [place] [address], [facility] Creatinine 0.88 mg/dL Normal 0.60-1.20 [facility] Comment on above: Performed By: #### 0 0121, 84101 ####[facility] [place] [address], [facility] eGFR (black) mL/min/{1.73_m2} Normal >60 [facility] Comment on above: Result Comment: Calc ulation may not be valid for patients over 70 years Performed By: #### 0 0121, 50257 ####[facility] [place] [address], [facility] eGFR (non-black) mL/min/{1.73_m2} Normal >60 [facility] Comment on above: Result Comment: Calc ulation may not be valid for patients over 70 years Performed By: #### 0 0121, 35998 ####[facility] [place] [address], [facility] Glucose mass conc 90 mg/dL Normal 70-100 [facility] Comment on above: Performed By: #### 0 0121, 26760 ####[facility] [place] [address], [facility] Potassium molar conc 3.9 mmol/L Normal 3.5-5.1 [facility] Comment on above: Performed By: #### 0 0121, 34732 ####[facility] [place] [address], [facility] Protein 7.2 g/dL Normal 6.0-8.3 [facility] Comment on above: Performed By: #### 0 0121, 23129 ####[facility] [place] [address], [facility] Sodium 137 mmol/L Normal 136-145 [facility] Comment on above: Performed By: #### 0 0121, 40445 ####[facility] [place] [address], [facility] Urea nitrogen 16 mg/dL Normal 7-25 [facility] Comment on above: Performed By: #### 0 0121, 96886 ####[facility] [place] [address], [facility] COMPLEMENT 3on 07-06-2017 COMPLEMENT 3 125 mg/dL Normal 79-152 [facility] Comment on above: Performed By: #### 1 0238, 53109, 15371 ####[facility] [place] [address], [facility] COMPLEMENT 4on 07-06-2017 COMPLEMENT 4 28 mg/dL Normal 16-38 [facility] Comment on above: Performed By: #### 1 0238, 00611, 13958 ####[facility] CPKon 07-06-2017 Creatine kinase (CK) 55 U/L Normal 30-223 [facility] Comment on above: Performed By: #### 0 0121, 72795 ####[facility] CREATININE URINE RANDOMon Creatinine 87.0 mg/dL Normal [facility] Comment on above: Result Comment: Ther e are no established reference values for random urine specimens Performed By: #### 4 1802, 91906 ####[facility] SEDIMENTATION RATEon 017 SED RATE 22 mm/hr High 0-20 [facility] Comment on above: Performed By: #### 5 0103, 08503 ####[facility] SJOGRENS ANTIBODIESon 2016 SS-A Negative Normal NEG,NEGATIVE ,Neg [facility] Comment on above: Performed By: #### 0 0121, 14904 ####[facility] SS-B Negative Normal NEG,NEGATIVE ,Neg [facility] Comment on above: Performed By: #### 0 0121, 01478 ####[facility] [place] [address], [facility] T PROT UR Rhianna 07-06-2017 U TOTAL PROTEIN 10.0 mg/dL Normal [facility] Comment on above: Result Comment: Ther e are no established reference values for random urine specimens Performed By: #### 4 1802, 07256 ####[facility] URINALYSISon 07-06-2017 Bilirubin (total) Negative Normal NEGATIVE [facility] Comment on above: Performed By: #### 1 0008 ####[facility] [place] [address].[address] BLOOD Negative Normal NEGATIVE [facility] Comment on above: Performed By: #### 1 0008 ####[address] EPIS MANY Abnormal FEW [facility] Comment on above: Performed By: #### 1 0008 ####[address] Erythrocytes (RBC) 0-2 Abnormal 0-0 [facility] Comment on above: Performed By: #### 1 0008 ####[address] Glucose mass conc Negative Normal NEGATIVE [facility] Comment on above: Performed By: #### 1 0008 ####[address] KETONE Negative Normal NEGATIVE [facility] Comment on above: Performed By: #### 1 0008 ####[address] LEUK GERRY TRACE Abnormal NEGATIVE [facility] Comment on above: Performed By: #### 1 0008 ####[address] MUCUS THREADS OCC Abnormal NONE SEEN [facility] Comment on above: Performed By: #### 1 0008 ####[address] pH of blood 5.0 [pH] Normal 5.0-8.0 [facility] Comment on above: Performed By: #### 1 0008 ####[facility] [place] [address], [facility] Protein Negative Normal NEGATIVE [facility] Comment on above: Performed By: #### 1 0008 ####[facility] [place] [address], [facility] SPEC GRAV 1.013 Low 1.015-1.020 [facility] Comment on above: Performed By: #### 1 0008 ####[facility] [place] [address], [facility] Urine, appearance CLEAR Normal CLEAR [facility] Comment on above: Performed By: #### 1 0008 ####[facility] [place] [address], [facility] Urine, bacteria in sediment OCC Abnormal NONE SEEN [facility] Comment on above: Performed By: #### 1 0008 ####[facility] [place] [address], [facility] Urine, color SHAYY Abnormal YELLOW [facility] Comment on above: Performed By: #### 1 0008 ####[facility] [place] [address], [facility] Urine, nitrite presence Positive Abnormal NEGATIVE [facility] Comment on above: Performed By: #### 1 0008 ####[facility] [place] [address], [facility] WBC UA 6-10 Abnormal 0-0 [facility] Comment on above: Performed By: #### 1 0008 ####[facility] [facility].[address] Vital Signs Date Time Vital Sign Value Performing Clinician Jimyi roberto 08-17-2023 13:40-0500 Body height 167.64 cm Shayy Garza Other [facility] Other 08-17-2023 13:40-0500 Body mass index (BMI) [Ratio] 26.31 kg/m2 Shayy Garza Other [facility] Other 08-17-2023 13:40-0500 Body temperature 97.9 [degF] Shayy Greg Other [facility] Other 08-17-2023 13:40-0500 Body weight 73.94 kg Shayy Greg Other [facility] Other 08-17-2023 13:40-0500 Respiratory rate 18 /min Shayy Garza Other [facility] Other 08-17-2023 13:40-0500 SaO2% (BldA) [Mass fraction] 96 % Shayy Garza Other [facility] Other 08-01-2023 09:00-0500 Body height 167.64 cm Mary Tejal Other [facility] Other 08-01-2023 09:00-0500 Body mass index (BMI) [Ratio] 26.02 kg/m2 Mary Tejal Other [facility] Other 08-01-2023 09:00-0500 Body temperature 98.1 [degF] Mary Tejal Other [facility] Other 08-01-2023 09:00-0500 Body weight 73.12 kg Mary Tejal Other [facility] Other 08-01-2023 09:00-0500 Diastolic blood pressure 97 mm[Hg] Mary Tejal Other [facility] Other 08-01-2023 09:00-0500 Respiratory rate 18 /min Mary Toure Other [place] [facility] Other 08-01-2023 09:00-0500 SaO2% (BldA) [Mass fraction] 95 % Mary Toure Other [facility] Other 08-01-2023 09:00-0500 Systolic blood pressure 166 mm[Hg] Mary Toure Other [facility] Other 06-01-2023 14:54-0400 Diastolic blood pressure 88 mm[Hg] Rahul Vikofferson [facility] 06-01-2023 14:54-0400 Heart rate 78 /min Rahul Christofferson [facility] 06-01-2023 14:54-0400 SaO2% (BldA) [Mass fraction] 97 % Rahul Christofferson [facility] 06-01-2023 14:54-0400 Systolic blood pressure 138 mm[Hg] Rahul Christofferson [facility] 04-20-2023 14:33-0400 Blood Pressure Location Rahul Christofferson [facility] 04-20-2023 14:33-0400 Diastolic blood pressure 72 mm[Hg] Rahul Christofferson [facility] 04-20-2023 14:33-0400 Heart rate 76 /min Rahul Christofferson [facility] 04-20-2023 14:33-0400 SaO2% (BldA) [Mass fraction] 96 % Rahul Christofferson [facility] 04-20-2023 14:33-0400 Systolic blood pressure 128 mm[Hg] Arhul Christofferson [facility] 12-21-2021 13:35-0400 Body height 167.64 cm Mary Toure Other [facility] Other 12-21-2021 13:35-0400 Body mass index (BMI) [Ratio] 28.73 kg/m2 Mayr Toure Other [facility] Other 12-21-2021 13:35-0400 Body temperature 97.9 [degF] Mary Toure Other [facility] Other 12-21-2021 13:35-0400 Body weight 80.74 kg Mary Toure Other [facility] Other 12-21-2021 13:35-0400 Diastolic blood pressure 66 mm[Hg] Mary Toure Other [facility] Other 12-21-2021 13:35-0400 Respiratory rate 16 /min Mary Toure Other [facility] Other 12-21-2021 13:35-0400 SaO2% (BldA) [Mass fraction] 97 % Mary Toure Other [facility] Other 12-21-2021 13:35-0400 Systolic blood pressure 129 mm[Hg] Mary Toure Other [facility] Other Encounters Encounter Date Encounter Type Care Provider Facility Start: 09-05-2023 End: 09-05-2023 ambulatory SHAIKH BENNETT Not Available Start: 08-28-2023 End: 08-29-2023 ambulatory Gem Contreras Facility[facility] Start: 08-28-2023 End: 08-28-2023 Patient encounter procedure Gem Contreras [facility] Start: 08-20-2023 End: 08-20-2023 ambulatory Shayy Garza Other [place] [facility] Other Start: 08-20-2023 Telephone encounter Shayy Garza [facility] [address] Start: 08-17-2023 End: 08-17-2023 ambulatory PHYSICIAN NO FAMILY Facility:[facility] Start: 08-17-2023 End: 08-17-2023 Departed Referred PHYSICIAN NO [facility] [address] [place] Work Phone: Start: 08-17-2023 End: 08-17-2023 ambulatory PHYSICIAN NO [facility] Work Phone: Start: 08-17-2023 Office outpatient visit 15 minutes Shayy Garza [facility] [place] Start: 2023 End: 08-16-2023 ambulatory Camelia LOW Facility:[facility] Start: 08-01-2023 Office outpatient visit 15 minutes Mary Toure [facility] [place] Start: 08-01-2023 End: 08-01-2023 ambulatory PHYSICIAN NO [facility] Other Start: 08-01-2023 End: 08-01-2023 Departed Referred PHYSICIAN NO [facility] [place] Work Phone: Start: 07-31-2023 End: 08-01-2023 ambulatory Gem Contreras Facility:[facility] Start: 07-31-2023 End: 07-31-2023 Patient encounter procedure Gem Contreras [facility] Start: 07-24-2023 End: 07-25-2023 ambulatory SERA JENSEN Not Available Start: 07-14-2023 End: 07-15-2023 ambulatory Anoop Almanzar Facility:[facility] [place] Start: 06-29-2023 ambulatory Tonio Levy Facility:[facility] Start: 06-23-2023 ambulatory Anoop Almanzar [facility] Start: 06-22-2023 End: 06-23-2023 ambulatory Anoop Almanzar Facility:[facility] [place] Start: 06-13-2023 ambulatory Gem Freeman Contreras Facility :[facility] Start: 06-06-2023 End: 06-07-2023 ambulatory Gem Freeman Contreras Facility:[facility] Start: 06-06-2023 End: 06-06-2023 Patient encounter procedure Gem Lydia Contreras [facility] Start: 06-01-2023 End: 06-02-2023 ambulatory Anoop Almanzar Facility:[facility] Start: 06-01-2023 End: 06-01-2023 Patient encounter procedure Rahul Salas [facility] Start: 05-31-2023 ambulatory Anoop Almanzar Facility:[facility] Start: 05-30-2023 End: 05-31-2023 ambulatory Anoop Almanzar Facility:[facility] [place] Start: 05-25-2023 End: 05-26-2023 ambulatory XXXX NONE Facility:[facility] Start: 05-11-2023 End: 05-12-2023 ambulatory Rahul Salas Facility:[facility] Start: 05-11-2023 End: 05-11-2023 Patient encounter procedure Rahul Salas [facility] Start: 05-09-2023 Telephone encounter Shayy Garza [facility] [place] Start: 05-09-2023 End: 05-10-2023 ambulatory Franco SCHERER [facility] Other Start: 05-04-2023 End: 05-04-2023 ambulatory Shayy Garza Facility:[facility] Start: 04-20-2023 End: 04-21-2023 ambulatory Anoop Almanzar Facility:[facility] Start: 04-20-2023 End: 04-20-2023 Patient encounter procedure Rahul Salas [facility] Start: 04-17-2023 End: 04-18-2023 ambulatory Anoop EsparzaElvis Almanzar Facility:[facility] [place] Start: 03-28-2023 End: 03-29-2023 ambulatory Anoop EsparzaElvis Almanzar Facility:[facility] [place] Start: 03-20-2023 End: 03-21-2023 ambulatory Anoop EsparzaElvis Almanzar Facility:[facility] [place] Start: 03-02-2023 End: 03-02-2023 ambulatory Rashard Roblesmiller Facility:[facility] Start: 03-02-2023 End: 03-02-2023 ambulatory MD Ashutosh Santana Work Phone: [facility] Work Phone: Start: 03-02-2023 End: 03-02-2023 Patient encounter procedure MD Ashutosh Santana Work Phone: [facility] [address] Work Phone: Start: 01-24-2023 End: 01-24-2023 ambulatory Rashard Epstein Facility:[facility] Start: 01-24-2023 End: 01-24-2023 ambulatory MD Ashutosh Santana Work Phone: [facility] Work Phone: Start: 01-24-2023 End: 01-24-2023 Patient encounter procedure MD Ashutosh Santana Work Phone: [facility] [address] Work Phone: Start: 12-20-2022 End: 12-21-2022 ambulatory Anoop Almanzar Facility:[facility] [place] Start: 11-02-2022 End: 11-03-2022 ambulatory ASHUTOSH SANTANA Facility:[facility] [place] Start: 10-24-2022 ambulatory Anoop Almanzar Facility:[facility] [place] Start: 10-21-2022 End: 10-22-2022 ambulatory PILI VELASCO [facility] Start: 09-20-2022 End: 09-21-[address] ASHUTOSH SANTANA Facility:[facility] Start: 08-17-2022 End: 08-18-[address] ASHUTOSH SANTANA Facility:[facility] Start: 05-17-2022 End: 05-17-2022 ambulatory MD Ashutosh Santana Work Phone: [facility] Work Phone: Start: 05-17-2022 End: 05-17-2022 Patient encounter procedure MD Ashutosh Santana Work Phone: [facility] [address] Start: 03-14-2022 End: 03-15-[address] ASHUTOSH SANTANA Facility:[facility] Start: 01-25-2022 End: 01-26-[address] ASHUTOSH SANTANA Facility:[facility] Start: 01-06-2022 End: 01-06-2022 ambulatory Mary Toure Other [facility] Other Start: 01-06-2022 Telephone encounter Mary Toure [facility] [place] Start: 12-21-2021 End: 12-21-2021 ambulatory Mary Toure Other [facility] Other Start: 12-21-2021 Office outpatient visit 25 minutes Maryjad Toure [facility] [place] Start: 09-27-[address] ASHUTOSH SANTANA Facilit y:[facility] Start: 07-06-2017 End: 07-07-2017 Ambulatory LISET SINGHA Facility:[facility] Procedures Date Procedure Procedure Detail Performing Clinician Start: 08-01-2023 Urine culture PHYSICIAN NO FAMILY Start: 03-02-2023 Plain chest X-ray MD Vikram Santana Work Phone: Start: 01-24-2023 Urine culture MD Ashutosh harrington Work Phone: Appendectomy Rahul zuniga Cardiac catheter (ph ysical object) Rahul Salas Comment on above: 2016 Cholecystectomy Rahul santamaria Comment on above: bile duct surgery Coronary artery bypa ss grafts x 2 Rahul Salas Comment on above: 04/2020 Total abdominal hysterectomy with bilateral salpingo-oophorectomy Rahul Munguiareynold Plan of Treatment Date Care Activity Detail Author Start: 08-17-2023 Bacteria identified in Urine by Culture [facility] Start: 01-24-2023 Bacteria identified in Urine by Culture Urine Culture [facility] Start: 05-17-2022 [facility] Bacteria identified in Urine by Culture [facility] Complement C3 [Mass/ volume] in Serum or Plasma [facility] Work Phone: Complement C4 [Mass/ volume] in Serum or Plasma [facility] Work Phone: Myeloperoxidase Ab [Units/volume] in Serum by Immunoassay [facility] Work Phone: Neutrophil cytoplasm ic Ab.classic [Titer] in Serum by Immunofluorescence [facility] Work Phone: Neutrophil cytoplasm ic Ab.perinuclear.atypical [Titer] in Serum by Immunofluorescence [facility] Work Phone: P-ANCA measurement [facility] Work Phone: Proteinase 3 Ab [Uni ts/volume] in Serum by Immunoassay [facility] Work Phone: Immunizations Immunization Date Immunization Notes Care Provider Fa michelle NEGATED: Highlighted row has not occurred!05-30-2023 influenza virus vaccine, unspecified formulation [facility] Salas [facility] [place] NEGATED: Highlighted row has not occurred!11-02-2022 influenza virus vaccine, unspecified formulation Rahul Salas [facility] [place] NEGATED: Highlighted row has not occurred!11-02-2022 SARS-CoV-2 mRNA (tozinameran 5y-11y) vaccine Rahul Salsa [facility] [place] Payers Date Payer Category Payer Self-pay [id number] 2022 Medicare [id number] [id number] 1959 Medicaid [id number] 2.16.840.1.374761.19 1959 Medicare [id number] 2.16.840.1.666162.19 1945 Unknown [id number] 2.16.840.1.670819.3.579.2.593 1945 Unknown [id number] 2.16.840.1.426612.3.579.2.593 1945 Unknown [id number] 2.16.840.1.504105.3.579.2.593 1945 Unknown [id number] 2.16.840.1.903478.3.579.2.593 1945 Unknown [id number] 2.16.840.1.244019.3.579.2.593 1945 Unknown [id number] 2.16.840.1.633678.3.579.2.175 1945 Unknown [id number] 2.16.840.1.169120.3.579.2.727 1945 Unknown [id number] 2.16.840.1.556143.3.579.2.727 1945 Unknown [id number] 2.16.840.1.613301.3.579.2.727 1945 Unknown [id number] 2.16.840.1.177295.3.579.2.727 1945 Unknown [id number] 2.16.840.1.732900.3.579.2.727 1945 Unknown [id number] 2.16.840.1.804586.3.579.2.727 1945 Unknown [id number] 2.16.840.1.411915.3.579.2.727 1945 Unknown [id number] 2.16.840.1.391318.3.579.2.72 1945 Unknown [id number] 2.16.840.1.570410.3.579.2.72 1945 Unknown [id number] 2.16.840.1.362860.3.579.2.72 1945 Unknown [id number] 2.16.840.1.989535.3.579.2.72 1945 Unknown [id number] 2.16.840.1.843102.3.579.2.72 1945 Unknown [id number] 2.16.840.1.287899.3.579.2.72 1945 Unknown [id number] 2.16.840.1.862603.3.579.2.72 1945 Unknown [id number] 2.16.840.1.955593.3.579.2.72 1945 Unknown [id number] 2.16.840.1.879274.3.579.2.72 1945 Unknown [id number] 2.16.840.1.671527.3.579.2.72 1945 Unknown [id number] 2.16.840.1.187212.3.579.2.72 1945 Unknown [id number] 2.16.840.1.683047.3.579.2.72 1945 Unknown [id number] 2.16.840.1.182263.3.579.2.1259 1945 Unknown [id number] 2.16.840.1.808001.3.579.2.1259 1945 Unknown [id number] 2.16.840.1.724181.3.579.2.1259 [facility] SUKAREN [id number] Medicare Medicare Nonpatient [id number] [id number] Unknown [id number] 2.16.840.1.392412.3.579.2.531 Unknown [id number] 2.16.840.1.623927.3.579.2.531 Unknown [id number] 2.16.840.1.738545.3.579.2.531 Unknown [id number] 2.16.840.1.128427.3.579.2.531 Unknown [id number] 2.16.840.1.401435.3.579.2.531 Social History Date Type Detail Facility Unknown if ever smoked [facility] Other Sex Assigned At [facility] Start: 1945 Sex Assigned At Female F [facility] Start: 04-17-2023 End: 06-22-2023 Tobacco smoking status Never smoked tobacco (finding) [facility] Tobacco smoking status Never [facility] Functional Status Date Assessment Result Facility 06-01-2023 Functional Status No [facility] 04-20-2023 Functional Status No [facility] Clinical Notes 12-21-2021 to 08-17-2023 Note Date & Type Note Facility 08-17-2023 Evaluation note Encounter Date Diagnosis Assessment Notes Jul, Abdominal pain (ICD-10 - R10.9) Jul, Acute cystitis with hematuria (ICD-10 - N30.01) Discussed diagnosis and dipstick findings with patient. Will treat patient for UTI. Instructed patient to take antibiotic as prescribed, take with food, complete entire course of therapy even if feeling better. Allergies and recent antibiotic use were reviewed with patient. Advised patient culture was sent today and we will call with her results in 2-5 days. Patient instructed to push fluids. May take Pyridium for discomfort as prescribed. Patient requested rx of prednisone for flare up of Lupus. Will send in to use as directed. Patient symptoms should improve in the next 48 hours, if symptoms persist follow up with PCP. Regardless of improvement, recommended follow up in 1 week with PCP. Immediate eval by ER if back or flank pain, fever, chills, N/V, or any other concerning symptoms arise. Patient verbalizes understanding and is agreeable to treatment plan. [facility] Other 12-12-2023 Evaluation note* Encounter Date Diagnosis Assessment Notes Treatment Notes Treatment Clinical Notes Jul, Dysuria (ICD-10 - R30.0) Jul, Acute cystitis without hematuria (ICD-10 - N30.00) Drink plenty fluids, get plenty of rest. Continue home medications as prescribed. Take the Bactrim DS and the Pyridium as prescribed until gone. Follow-up with your family physician if no improvement in 2 to 3 days. You may take Tylenol or Motrin as needed for aches pains or fevers. [facility] Other 09-22-2023 NoteEchocardiology Procedure Exam Date/Time Accession # Ordering Echo Transthoracic 05/11/2023 11:40 EDT [id number] Portillo PIPER, Rahul Varner CPT code 58121 [id number] Reason for Exam (Echo Transthoracic Complete) I25.10;CAD Coronary artery disease Report Version: 1 Study ID: [id number] [id number] Adult Echocardiogram Report Name: TEA RAHMAN Study Date: 05/11/2023, 10: 55 AM Patient Location: [facility] : 1945 (MM/DD/YYYY) Gender: Female Age: 77 Years Height: 167.64 cm BP: 105 / 64 mmHg Weight: 79.38 kg HR: 62 bpm BSA: 1.89 m? Ordering Physician: Rahul Salas Referring Physician: Rahul Salas Performed By: Dunia Orellana, ROSA ISELA, RVT Reason For Study: CAD Coronary artery disease History: CABG x 2 05/10/20, HTN, Lupus Interpretation Summary Normal LV size with low normal LV systolic function. Ejection Fraction = 50-55%. No significant valve disease. Normal estimated PA pressure. Impaired diastolic relaxation. Procedure A complete two-dimensional transthoracic echocardiogram was performed (2D, M- mode, spectral and color flow Doppler). Study quality is good. Left Ventricle The left ventricle is normal in size. There is normal left ventricular wall thickness. Ejection Fraction = 50-55%. The left ventricular wall motion is normal. Grade I diastolic dysfunction, (abnormal relaxation pattern). Left Atrium Echocardiology Report The left atrial size is normal. Right Atrium Right atrial size is normal. Right Ventricle The right ventricular systolic function is normal. The right ventricle is normal size. The right ventricular wall motion is normal. Aortic Valve The aortic valve is trileaflet. No aortic regurgitation. There is no aortic stenosis. Mitral Valve The mitral valve is normal in structure and function. There is no mitral regurgitation noted. No mitral valve stenosis. Tricuspid Valve Structurally normal tricuspid valve. No evidence of tricuspid regurgitation. Right ventricular systolic pressure is normal. Pulmonic Valve No evidence of stenosis. There is no pulmonic valve regurgitation. Arteries The aortic root is normal in size. Normal ascending aorta. Pulmonary artery diameter is normal. Venous The inferior vena cava is normal in size, and collapses normally with respiration. Effusion There is no pericardial effusion. Left Ventricle IVSd: 0.63 cm LVIDd: 4.6 cm LVPWd: 0.83 cm LVIDs: 3.0 cm EDV(MOD-sp4): 65.9 ml LVLd ap4: 7.0 cm ESV(MOD-sp4): 31.7 ml LVLs ap4: 5.6 cm EDV(MOD-sp2): 66.0 ml LVLd ap2: 6.6 cm ESV(MOD-sp2): 30.4 ml LVLs ap2: 6.3 cm Aortic Valve LVOT diam: 1.67 cm LV V1 max: 75.8 cm/sec LV V1 max P.30 mmHg Ao max P.7 mmHg Ao V2 max: 82.8 cm/sec Aorta Ao root diam: 2.44 cm Atria LA dimension: 3.3 cm Diastolic funtion Med Peak E' Carmela: 5.2 cm/sec Lat Peak E' Carmela: 7.1 cm/sec MV dec time: 0.27 sec MV E max carmela: 49.3 cm/sec MV A max carmela: 72.0 cm/sec Ao max P.7 mmHg Ao root area: 4.7 cm? Ao root diam: 2.44 cm Ao V2 max: 82.8 cm/sec AV VR: 0.92 PHILIPP(V,D): 2.01 cm? Echocardiology Report EDV(MOD-sp4): 65.9 ml EDV(Teich): 96.0 ml EF(MOD-sp4): 51.9 % EF(Teich): 63.0 % ESV(MOD-sp4): 31.7 ml ESV(Teich): 35.5 ml FS: 34.0 % IVC Diam: 1.83 cm IVSd: 0.63 cm LA dimension: 3.3 cm LV V1 max: 75.8 cm/sec LV V1 max P.30 mmHg LVIDd: 4.6 cm LVIDs: 3.0 cm LVLd ap4: 7.0 cm LVLs ap4: 5.6 cm LVOT area: 2.19 cm? LVOT diam: 1.67 cm LVPWd: 0.83 cm MV A max carmela: 72.0 cm/sec MV dec time: 0.27 sec MV E max carmela: 49.3 cm/sec MV E/A: 0.68 RAP systole: 3.0 mmHg RVDd: 2.8 cm RVIDd/LVIDd: 0.62 SV(MOD-sp4): 34.2 ml E/E' Lat: 7.0 E/E' Med: 9.4 EDV(MOD-sp2): 66.0 ml EF (MOD-bp): 52.1 % EF(MOD-sp2): 53.9 % ESV(MOD-sp2): 30.4 ml LA Vol Index: 17.4 ml/m? Lat Peak E' Carmela: 7.1 cm/sec LVLd ap2: 6.6 cm LVLs ap2: 6.3 cm Med Peak E' Carmela: 5.2 cm/sec Electronically signed by: Rahul Salas MD 05/12/2023, 9: 34 PM FINAL REPORT Dictated: 05/11/2023 10:55 am Christofferson MD, Rahul D. Signed (Electronic Signature): 05/12/2023 9:34 pm Signed by: Rahul Salas MD Transcribed by: [facility] Technologist: [facility]05-03-2022 Evaluation note* Encounter Date Diagnosis Assessment Notes Treatment Notes Treatment Clinical Notes December, Urinary frequency (ICD-10 - R35.0) December, Urinary tract infection without hematuria, site unspecified (ICD-10 - N39.0) Drink plenty fluids, get plenty of rest. Continue home medications as prescribed. Take the Macrobid and Pyridium as prescribed until gone. Follow-up with your family physician if no improvement in 2 to 3 days. Go to the ER for worsening symptoms or concerns [employer] Other Evaluation + Plan note Future Appointments Appointment Date:05/25/2023 03:15:00 PM Scheduled Provider:Rahul Salas MD [facility] [place] Appointment Type:Cardiology Follow Up (FT) Appointment Date:06/13/2023 01:20:00 PM Scheduled Provider:Anoop Almanzar MD Location:[facility] Future Appointments Appointment Date:06/06/2023 01:00:00 PM Scheduled Provider:[place] Location:[facility] Behavior[facility] Appointment Type:BH Therapy New Patient Appointment Date:06/22/2023 04:00:00 PM Scheduled Provider:Anoop Almanzar MD Location:[facility] Appointment Type: Open Appointment Date:06/29/2023 02:30:00 PM Scheduled Provider:Tonio Levy MD Location:[facility] Dig[facility]ive [facility] Appointment Type:BADH New Patient Appointment Date:07/14/2023 09:30:00 AM Scheduled Provider: Location:[facility] Appointment Type: Medicare Wellness [facility] Future Appointments Appointment Date:06/13/2023 01:00:00 PM Scheduled Provider:[place] Location:[facility] Appointment Type:BH Therapy 60 Appointment Date:06/22/2023 04:00:00 PM Scheduled Provider:Anoop Almanzar MD Location:[facility] Appointment Type: Open Appointment Date:06/29/2023 02:30:00 PM Scheduled Provider:Tonio Levy MD Location:[facility] Dig[facility] Appointment Type:BADH New Patient Appointment Date:07/14/2023 09:30:00 AM Scheduled Provider: Location:[facility] Appointment Type: Medicare Wellness Subsequent [facility] evaluation + Plan note Future Appointments Appointment Date:08/10/2023 03:00:00 PM Scheduled Provider:Camelia LOW CNP Location:.[facility] Clinic Appointment Type:Cardiology ED Follow Up (FT) [facility] [employer] evaluation + Plan note Future Appointments Appointment Date:11/13/2023 12:15:00 PM Scheduled Provider:Rahul Salas MD Location:.[facility] Clinic Appointment Type:Cardiology Follow Up (FT) [facility] [employer] evaluation noteNo InformationNort [employer] Other Evaluation noteNo assessment information available [facility] Work Phone: [facility] Narrative - Reported* Type Description Date Medical History lupus Medical History fibromyalgia Medical History Arthritis Medical History Hypothyroidism Medical History Hiatal hernia Medical History IBS (irritable bowel syndrome) Medical History CAD (coronary artery disease) Medical History Anxiety Medical History Gastroesophageal ref lux disease, esophagitis presence not specified Medical History Insomnia, unspecified type Medical History frequent UTI's Medical History HTN Surgical History cholecystectomy Surgical History appendectomy Surgical History hysterectomy Surgical History thyroidectomy Surgical History cardiac catheterization Surgical History heart bypass surgery double Surgical History open heart Hospitalization History see above surgical hx [place] [employer] Other Hospital course Narrative No data available for this section [facility] Dis[facility] instructions No data available for this section [facility] No data available for this section [facility] Summary Purpose Family History No Family History Records FoundNo Family History Records Found No data available for this section No data available for this section No data available for this section No Family History Records FoundNo Family History Records Found No data available for this section No Family History Records FoundNo Family History Records FoundNo Family History Records Found Advance Directives No Advanced Directives Records Found Advance Directive Response Recorded Date/ Time Advance Directives No July 24, 2017 5:29pm Advance Directive Response Recorded Date/ Time Advance Directives No July 24, 2017 4:29pm Chief Complaint and Reason for Visit Chief Complaint soof Chief Complaint lUPUS Chief Complaint R30. Additional Source Comments INFORMATION SOURCE (unrecogn ized section and content) DATE CREATED AUTHOR 02/13/2018 [facility] DATE CREATED AUTHOR AUTHOR'S ORGANIZ ATION 09/21/2022 [facility] DATE CREATED AUTHOR AUTHOR'S ORGANIZ ATION 08/24/2023 [facility] DATE CREATED AUTHOR AUTHOR'S ORGANIZ ATION 08/27/2023 [facility] DATE CREATED AUTHOR AUTHOR'S ORGANIZ ATION 08/29/2023 [facility] DATE CREATED AUTHOR AUTHOR'S ORGANIZ ATION 08/29/2023 [facility] DATE CREATED AUTHOR AUTHOR'S ORGANIZ ATION 09/06/2023 [facility] EPIC REASON FOR VISIT (unrecogniz ed section and content) PRESSURE, FREUQUENT URINATIO N X 1 WEEKPRESSURE, FREUQUENT URINATION X 1 WEEKPRESSURE, FREUQUENT URINATION X 1 WEEKNo InformationNo Informationpressure on bladder//urinary urgencypressure on bladder//urinary urgencyNo InformationBLADDER INFECTION Care Teams (unrecognized sec tion and content) Team Status: Active Member Role Status Dates Ashutosh Santana MD Primary Care Provider Active Team Status: Inactive Member Role Status Dates Ashutosh Santana MD Primary Care Provider Active Rashard Epstein MD Attending Provider Active Team Status: Active Member Role Status Dates PHYSICIAN NO FAMILY Primary Care Provider Active Team Status: Inactive Member Role Status Dates PHYSICIAN NO FAMILY Primary Care Provider Active Shayy Garza APRN Attending Provider Active Team Status: Inactive Member Role Status Dates PHYSICIAN NO FAMILY Primary Care Provider Active SUMAN Tomas Attending Provider Active Goals (unrecognized section and content) Goals may be documented in a n alternate section FOR RECORDS PERTAINING TO PATIENTS WHO ARE OR HAVE BEEN ENROLLED IN A CHEMICAL DEPENDENCY/SUBSTANCEABUSE PROGRAM, SOME INFORMATION MAY BE OMITTED. This clinical summary was aggregated from multiple sources. Caution should be exercised in using it in the provision of clinical care. This summary normalizes information from multiple sources, and as a consequence, information in this document may materially change the coding, format and clinical context of patient data. In addition, data may be omitted in some cases. CLINICAL DECISIONS SHOULD BE BASED ON THE PRIMARY CLINICAL RECORDS. [facility] [employer] [facility]. provides no warranty or guarantee of the accuracy or completeness of information in this document.
[2023-09-09 12:36] LABS: TSH W/ REFLEX FT4 2.178 uIU/mL (0.358-3.740)
== END 2023-09-09 11:22 | disposition home or self-care (01) ==
LOC: LAB 11:24
PROVIDERS: PCP Internal Medicine; Visit Provider Internal Medicine
DX: E03.9 Hypothyroidism, unspecified (principal); E55.9 Vitamin D deficiency, unspecified
CPT/HCPCS: 36415; 82306; 84443

== ENCOUNTER 2023-10-09 20:38 | Outpatient (REF) | payer MEDICARE, MEDICAID, SELFPAY ==
--- OUTSIDE RECORDS SUMMARY | 2023-10-09 20:44 | XMS_ITS | CCD ---
Author Name Unknown Address [address] [facility] [address] [place] [address] Organization [facility] Care Team Providers Care Optometry Teacher Name Role Phone WILIAN, LISET Unavailable Unavailable WILIAN, LISET Unavailable Unavailable MAX, ASHUTOSH Unavailable Unavailable MAX, ASHUTOSH Unavailable Unavailable Mary Toure Unavailable MD Ashutosh Santana Primary Care Provider MD Rashard Epstein Attending Provider MAX, DR ASHUTOSH Esparza Primary Care Unavailable [...] Care Provider MD Rashard Epstein Attending Provider [phone] Anoop Almanzar. Primary Care Physician [phone] Shayy Garza Unavailable NONE, XXXX Primary Care Physician Unavailab le NO FAMILY, PHYSICIAN Primary Care Provider Unava ilable SUMAN Toure Attending Provider ABIGAIL Garza Attending Provider PILI VELASCO Referring Unavailable ASHUTOSH SANTANA Primary Care Unavailable Anoop Almanzar Attending Unavailable Anoop Almanzar Attending Unavailable Anoop Almanzar Referring Unavailable Rahul Salas Attending UnavailGem Gibbs Attending Unavailable Gem Contreras Attending Unavailable ASHUTOSH SANTANA Attending Unavailable Anoop Almanzar Attending Unavailable Anoop Almanzar Attending Unavailable NONE, XXXX Referring Unavailable Rahul Salas Attending Unavaila Anoop Valerio Attending Unavailable Anoop Almanzar Attending Unavailable Anoop Almanzar Attending Unavailable Anoop Almanzar Referring Unavailable Rahul Salas Attending Unavaila Rahul Dillon Referring Unavaila Rahul Dillon Admitting Unavaila Rahul Dillon Consulting Unavaila Rahul Dillon Attending Unavaila Rahul Dillon Consulting Unavaila ble Rahul Salas Consulting Unavaila ble Franco SCHERER Admitting Unavailable Franco SCHERER Attending Unavailable Franco SCHERER Referring Unavailable STANCamelia Santiago L Admitting Unavailable NONE, XXXX Referring Unavailable Rahul Salas Attending Unavaila Tonio Garvey Attending Unavaila Gem Kim Attending Unavailable Gem Contreras Attending Unavailable SHAIKH LEUNG Attending Unavailable SERA JENSEN Attending Unavailable SERA JENSEN Referring Unavailable SUMAN Toure Attending Provider MD Rashard Epstein Attending Provider Mary Toure Admitting Unavailable Mary Toure Attending Unavailable NO FAMILY, PHYSICIAN Primary Care Unavailable Rashard Epstein Attending Unavailable Ashutosh Santana Primary Care Unavailable Rashard Epstein Admitting Unavailable Rashard Epstein Attending Unavailable Ashutosh Santana Primary Care Unavailable Rashard Epstein Admitting Unavailable Shayy Garza Admitting Unavailable Shayy Garza Attending Unavailable NO FAMILY, PHYSICIAN Primary Care Unavailable Rashard Epstein Attending Unavailable NO FAMILY, PHYSICIAN Primary Care Unavailable Rashard Epstein Admitting Unavailable Shayy Garza Admitting Unavailable Shayy Garza Attending Unavailable NO FAMILY, PHYSICIAN Primary Care Unavailable Xochitl PIPER, [facility] Primary Care Provider [phone] Allergies Allergy Classification Reported Allergen(s) Allergy Type Date of Onset Reaction(s) Facility (19 sources) prochlorperazine; 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: [compazine] Drug Allergy 12-12-19 12 [facility], throat swelling, unknown [facility] Repository (10 sources) Ciprofloxacin Drug Allergy 05-15-20 20 rash, Unknown [facility] Other (1 source) Levamisole Drug Allergy [facility] Repository (7 sources) atorvastatin; 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: [atorvastatin] Drug Allergy unknown [facility] (8 sources) Solifenacin; 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: [solifenacin] Drug Allergy 04-04-20 22 Unknown [facility] (1 source) Ciprofloxacin Drug Allergy 08-17-20 23 [facility] Repository (1 source) Prochlorperazine Drug Allergy 08-17-20 23 [facility] Repository (1 source) atorvastatin Drug Allergy 08-24-19 24 Other [facility] (1 source) busPIRone Drug Allergy 11-17-19 22 Unknown [facility] (1 source) Nitrofurantoin Drug Allergy 01-04-20 17 [facility] (1 source) Nitrofurantoin Drug Allergy 10-17-19 17 [facility] (1 source) Prochlorperazine Drug Allergy 09-29-19 07 Anaphylaxis, GI intolerance, Other, Swelling, Unknown [facility] Medications Current Medications Medication Drug Class(es) Dates Sig (Normalized) Sig (Original) acetaminophen 325 mg / HYDROcodone bitartrate 5 mg oral tablet (7 sources) Opioid Agonist Start: 06-22-2023 acetaminophen-hydr ocodone 325 mg-5 mg oral tablet 1 tab(s), Oral, q6hr, 90 tab(s), Refill(s) 0, [facility] #[id number], 167, cm, 06/22/23 15:56:00 EDT, Height/Length Dosing, 75.7, kg, 06/22/23 15:56:00 EDT, Weight Dosing Start Date: 06/22/23 Status: Ordered Start: 05-30-2023 acetaminophen- hydrocodone 325 mg-5 mg oral tablet 1 tab(s), Oral, q6hr, 90 tab(s), Refill(s) 0, [facility] #[id number], 167, cm, 05/30/23 14:35:00 EDT, Height/Length Dosing, 77.1, kg, 05/30/23 14:35:00 EDT, Weight Dosing Start Date: 05/30/23 Status: Ordered Start: 03-10-2023 acetaminophen- hydrocodone 325 mg-5 mg oral tablet 1 tab(s), Oral, q6hr, 90 tab(s), Refill(s) 0, [facility] #[id number], 167, cm, 12/20/22 16:33:00 EDT, Height/Length Dosing, 82, kg, 12/20/22 16:33:00 EDT, Weight Dosing Start Date: 03/10/23 Status: Ordered take 1 tablet by theo th in the morning, then take 1 tablet by mouth in the evening, then take 1 tablet by mouth at bedtime HYDROcodone-acetaminophen ([place]) 5-325 MG tablet Take 1 tablet by mouth in the morning and 1 tablet in the evening and 1 tablet before bedtime. 0 Active ALPRAZolam 0.5 mg oral tablet (7 sources) Benzodiazepine Start: 06-22-2023 take 1 tablet by mouth once daily as needed for anxiety alprazolam 0.5 mg Tab 0.5 mg = 1 tab(s), Oral, Daily, PRN for anxiety, as needed, Refills(s) 0 Start Date: 06/22/23 Status: Ordered Start: 05-29-2023 take 1 tablet by theo th three times daily as needed for anxiety alprazolam 0.5 mg Tab 0.5 mg = 1 tab(s), Oral, TID, PRN for anxiety, # 10 tab(s), Refills(s) 0, Pharmacy: [facility] #[id number], 167, cm, 05/25/23 15:36:00 EDT, Height/Length Dosing, 76.6, kg, 05/25/23 15:36:00 EDT, Weight Dosing Start Date: 05/29/23 Status: Ordered Start: 04-25-2023 take 1 tablet by theo th three times daily as needed for anxiety alprazolam 0.5 mg Tab 0.5 mg = 1 tab(s), Oral, TID, PRN for anxiety, # 30 tab(s), Refills(s) 0, Pharmacy: [facility] #[id number], 167, cm, 04/20/23 14:55:00 EDT, Height/Length Dosing, 78.6, kg, 04/20/23 14:55:00 EDT, Weight Dosing Start Date: 04/25/23 Status: Ordered Start: 03-28-2023 take 1 tablet by theo th three times daily as needed for anxiety alprazolam 0.5 mg Tab 0.5 mg = 1 tab(s), Oral, TID, PRN for anxiety, # 30 tab(s), Refills(s) 0, Pharmacy: [facility] #[id number], 167, cm, 03/28/23 13:02:00 EDT, Height/Length Dosing, 79.8, kg, 03/28/23 13:02:00 EDT, Weight Dosing Start Date: 03/28/23 Status: Ordered take 2 tablets by mouth once ALP RAZolam (Xanax) 0.25 MG tablet Take 0.5 mg by mouth every 12 (twelve) hours if needed for anxiety or sleep 0 Active Amlodipine (15 sources) Dihydropyridine Calcium Channel Doretha Start: 11-01-2022 amlodipine Oral, Daily, Refills(s) 0 Start Date: 11/01/22 Status: Ordered amLODIPine Besyl ate 5 MG Oral for 30 Not-Taking/PRN Aspir-81 (9 sources) Aspir-81 Active aspirin 81 mg delayed release oral tablet (1 source) Platelet Aggregation Inhibitor, Nonsteroidal Anti-inflammatory Drug aspirin (ASPIR) 81 MG EC tablet 1 (one) time each day at the same time. 0 Active carvedilol 12.5 mg oral tablet (16 sources) alpha-Adrenergic Doretha, beta-Adrenergic Doretha Start: take 1 tablet by mouth in the morning carvedilol (Coreg) 12.5 MG tablet Take 12.5 mg by mouth in the morning and 12.5 mg in the evening. 0 03/27/2023 Active Start: 11-01-2022 carvedilol Ora l, Refills(s) 0 Start Date: 11/01/22 Status: Ordered Carvedilol Activ e cephalexin 500 mg oral capsule (16 sources) Cephalosporin Antibacterial Start: 05-04-2023 take 1 capsule by mouth every eight hours Cephalexin 500 MG 1 capsule Orally every 8 hrs for 7 28 Jul, 2023 Active Ergocalciferol (15 sources) Provitamin D2 Compound Start: 11-01-2022 ergocalciferol 1,250 mg, Oral, Refills(s) 0 Start Date: 11/01/22 Status: Ordered Vitamin D2 Not-T aking/PRN Vitamin D2 Not-T aking Vitamin D2 Activ e Esomeprazole (10 sources) Proton Pump Inhibitor Esomeprazo le Magnesium (NEXIUM PO) NexIUM Active hydrocortisone acetate 10 mg/ml / pramoxine hydrochloride 10 mg/ml rectal foam (6 sources) Corticosteroid Start: 03-20-2023 Proctofoam HC rectal foam 1 elías, Rectal, TID, 10 gram, Refill(s) 0, [facility] #[id number], 167, cm, 03/20/23 11:45:00 EDT, Height/Length Dosing, 80.9, kg, 03/20/23 11:45:00 EDT, Weight Dosing Start Date: 03/20/23 Status: Ordered hydroxychloroquine sulfate 200 mg oral tablet (16 sources) Antimalarial, Antirheumatic Agent Start: 10-27-2022 hydroxychloroquine 200 mg Tab Refills(s) 0 Start Date: 10/27/22 Status: Ordered Hydroxychloroqui ne Sulfate Active hydrOXYzine (4 sources) Antihistamine hydrOXYzine HCl Active hyoscyamine sulfate 0.125 mg disintegrating oral tablet (7 sources) Start: take 1 tablet by mouth four times daily hyoscyamine 0.125 mg oral tablet, disintegrating 0.125 mg = 1 tab(s), Oral, QID, # 60 tab(s), Refills(s) 1, Pharmacy: [facility] #[id number], 167, cm, 06/01/23 14:55:00 EDT, Height/Length Dosing, 77, kg, 06/01/23 15:07:00 EDT, Weight Dosing Start Date: 06/07/23 Status: Ordered Start: 11-01-2022 take 1 tablet by theo th four times daily hyoscyamine 0.125 mg oral tablet, disintegrating 0.125 mg = 1 tab(s), Oral, QID, Refills(s) 0 Start Date: 11/01/22 Status: Ordered hyoscyamine (Lev sin) 0.125 MG SL tablet Take 125 mcg by mouth every 4 (four) hours if needed. 0 Active Hyoscyamine Sulf ate (HYOSCYAMINE PO) Hyoscyamine 0 Active 24 hr isosorbide mononitrate 30 mg extended release oral tablet (4 sources) Nitrate Vasodilator Start: 05-26-2023 take 1 tablet by mouth once daily in the morning isosorbide mononitrate 30 mg ER Tab 30 mg = 1 tab(s), Oral, qAM, # 30 tab(s), Refills(s) 6, Pharmacy: [facility] #[id number], 167, cm, 05/25/23 15:36:00 EDT, Height/Length Dosing, 76.6, kg, 05/25/23 15:36:00 EDT, Weight Dosing Start Date: 05/26/23 Status: Ordered levothyroxine sodium 0.1 mg oral tablet (16 sources) l-Thyroxine Start: 11-30-2022 take 1 tablet by mouth once daily levothyroxine 100 mcg (0.1 mg) Tab 100 mcg = 1 tab(s), Oral, Daily, # 90 tab(s), Refills(s) 3, Pharmacy: [facility] #[id number], 167.4, cm, 11/02/22 15:26:00 EDT, Height/Length Dosing, 82.7, kg, 11/02/22 15:26:00 EDT, Weight Dosing Start Date: 11/30/22 Status: Ordered take 1 tablet by mouth once fede y levothyroxine (Synthroid, Levoxyl) 100 MCG tablet Take 1 tablet every day by oral route for 30 days. 0 Active Levothyroxine So dium Active losartan potassium 100 mg oral tablet (16 sources) Angiotensin 2 Receptor Doretha Start: 10-04-2022 losartan 100 mg Tab Refills(s) 0 Start Date: 10/27/22 Status: Ordered Losartan Potassi um Active methylPREDNISolone 4 mg oral tablet (1 source) Corticosteroid Start: 05-11-2023 End: 05-17-2023 Medrol Dosepack 4 mg Tab = 1 packet(s), Oral, As Directed, as directed on package labeling, X 6 day(s), # 21 tab(s), Refills(s) 0, Pharmacy: [facility] #[id number], 167, cm, 04/20/23 14:55:00 EDT, Height/Length Dosing, 78.6, kg, 04/20/23 14:55:00 EDT, Weight Dosing Start Date: 05/11/23 Stop Date: 05/17/23 Status: Ordered nitroglycerin 0.4 mg sublingual tablet (1 source) Nitrate Vasodilator nitroglycerin (Nitrostat) 0.4 MG SL tablet DISSOLVE 1 TAB UNDER TONGUE FOR CHEST PAIN - IF PAIN REMAINS AFTER 5 MIN, CALL 911 AND REPEAT DOSE. MAX 3 TABS IN 15 MINUTES 0 Active ondansetron 4 mg disintegrating oral tablet (6 sources) Serotonin-3 Receptor Antagonist Start: 09-27-2023 End: 10-04-2023 take 1 tablet by mouth every eight hours as needed for nausea and vomiting and nausea and nausea ondansetron ODT (Zofran-ODT) 4 MG disintegrating tablet Indications: Nausea Take 1 tablet (4 mg) by mouth every 8 (eight) hours if needed for nausea or vomiting for up to 7 days 20 tablet 0 09/27/2023 10/04/2023 Active Start: 06-02-2023 take 1 tablet by theo th every eight hours ondansetron 4 mg Tab 4 mg = 1 tab(s), Oral, q8hr, # 10 tab(s), Refills(s) 1, Pharmacy: [facility] #[id number], 167, cm, 06/01/23 14:55:00 EDT, Height/Length Dosing, 77, kg, 06/01/23 15:07:00 EDT, Weight Dosing Start Date: 06/02/23 Status: Ordered Start: 11-01-2022 take 1 tablet by theo th every eight hours ondansetron 4 mg Tab 4 mg = 1 tab(s), Oral, q8hr, Refills(s) 0 Start Date: 11/01/22 Status: Ordered PLACARD (10 sources) Start: 05-03-2023 PLACARD PLACAR D, See Instructions, 1 EA, 0, expires in [...] Active Problems Problem Classification Problem Date Documented Da te Episodic/Chronic Abdominal pain (8 sources) Generalized abdominal pain; 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: [Unspecified abdominal pain] Onset: 3 03-28-2023 Episodic Adjustment disorders (2 sources) Adjustment disorder with anxious mood 06-12-2023 Chronic Administrative/social admission (2 sources) Patient encounter status; 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: [Persons encountering health services in other specified circumstances] Onset: 4 09-05-2023 Episodic Anxiety disorders (14 sources) Anxiety; 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: [Mixed anxiety and depressive disorder] Onset: 4 11-01-2022 Chronic Calculus of urinary tract (6 sources) Urinary bladder stone 12-20-2022 Episodic Coronary atherosclerosis and other heart disease (7 sources) Coronary arteriosclerosis; 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: [Atherosclerotic heart disease of [place] coronary artery without angina pectoris] Onset: 4 04-17-2023 Chronic Deficiency and other anemia (6 sources) Anemia 11-01-2022 Episodic Disorders of lipid metabolism (7 sources) Pure hypercholesterolemia; 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: [Hyperlipidemia] Onset: 4 11-01-2022 Chronic Esophageal disorders (1 source) Gastroesophageal reflux disease; 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: [Gastro-esophageal reflux disease without esophagitis] Onset: 4 09-05-2023 Chronic Essential hypertension (7 sources) Essential hypertension; 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: [Hypertensive disorder] Onset: 4 11-01-2022 Chronic Genitourinary symptoms and ill-defined conditions (10 sources) Frequency of micturition; 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: [Dysuria] Onset: 2 Resolved: 2 Episodic Hemorrhoids (6 sources) Hemorrhoids 03-20-2023 Episodic Mood disorders (6 sources) Depressive disorder; 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: [Single episode of major depression in full remission] 12-20-2022 Chronic Nausea and vomiting (1 source) Nausea; 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: [Nausea] 09-27-2023 Episodic Nutritional deficiencies (7 sources) Disorder of vitamin D; 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: [Vitamin D deficiency] Onset: 4 11-01-2022 Chronic Osteoarthritis (7 sources) Osteoarthritis of knee; 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: [Osteoarthritis] Onset: 4 11-01-2022 Chronic Comment on above: Left knee Chronic Osteoporosis (6 sources) Primary osteoporosis 11-01-2022 Chronic Other aftercare (1 source) Long-term current use of opiate analgesic drug; 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: [intermediate card tender (current) use of opiate analgesic] Onset: 4 09-05-2023 Episodic Other connective tissue disease (6 sources) Impingement syndrome of shoulder region 11-01-2022 Episodic Other connective tissue disease (6 sources) Primary fibromyalgia syndrome 11-01-2022 Episodic Other connective tissue disease (1 source) Fibromyalgia; 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: [Fibromyalgia] Onset: 4 09-05-2023 Episodic Other gastrointestinal disorders (6 sources) Irritable bowel syndrome 11-01-2022 Chronic Other injuries and conditions due to external causes (2 sources) History of fall 11-01-2022 Episodic Other nutritional; endocrine; and metabolic disorders (6 sources) Overweight in adulthood with body mass index of 25 or more but less than 30 11-02-2022 Episodic Other upper respiratory infections (6 sources) Posterior rhinorrhea 04-17-2023 Episodic Peripheral and visceral atherosclerosis (6 sources) Atherosclerosis of aorta 11-01-2022 Chronic Spondylosis; intervertebral disc disorders; other back problems (6 sources) Sciatica 11-01-2022 Episodic Systemic lupus erythematosus and connective tissue disorders (2 sources) Systemic involvement of connective tissue, unspecified; 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: [Lupus erythematosus] Onset: 4 09-05-2023 Chronic Thyroid disorders (11 sources) Hypothyroidism, unspecified; 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: [Hypothyroidism] Onset: 3 Chronic Unclassified (6 sources) Long-term current use of opiate analgesic drug 11-01-2022 Unclassified (2 sources) ;BLADDER CALCULI; 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: [;BLADDER CALCULI] Onset: 3 Unclassified (1 source) Interstitial pulmonary disease, unspecified; 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: [Interstitial pulmonary disease, unspecified] Onset: 3 Urinary tract infections (1 source) Chronic interstitial cystitis; 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: [Interstitial cystitis (chronic) without hematuria] Onset: 7 09-05-2023 Chronic Urinary tract infections (20 sources) Urinary tract infection, site not specified; 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: [Acute cystitis without hematuria] Onset: 2 Resolved: 2 Episodic Past or Other Problems Problem Classification Problem Date Documented Da te Episodic/Chronic Malaise and fatigue (4 sources) Other fatigue; 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: [OTHER FATIGUE] Onset: 07-06-2017 Episodic Other bone disease and musculoskeletal deformities (1 source) Disorder of bone, unspecified; 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: [Disorder of bone, unspecified] Onset: 01-24-2023 Episodic Results Test Name Value Interpretation Reference Range Facility Amorphous urine sedimentOrde red By: Rashard Epstein on 09-12-2023 Amorphous sediment LM Ql (Urine sed) See comment [facility] Comment on above: Unable to obtain acc urate result due to color interference. Automated epithelial cells c ount in urine sediment (number/area)Ordered By: Rashard Epstein on 09-12-2023 Epithelial cells Auto (Urine sed) [#/Area] 5-9 [HPF] 0-2 [facility] Automated erythrocytes count in urine sediment (number/area)Ordered By: Rashard Epstein on 09-12-2023 RBC Auto (Urine sed) [#/Area] 3-4 [HPF] 0-4 [facility] Automated leukocytes count i n urine sediment (number/area)Ordered By: Rashard Epstein on 09-12-2023 WBC Auto (Urine sed) [#/Area] 50-100 [HPF] 0-4 [facility] Automated urine hyaline cast s count (number/volume)Ordered By: Rashard Epstein on 09-12-2023 Hyaline casts Auto (U) [#/Vol] 0-1 [LPF] 0-1 [facility] Automated urine specific gra vity by refractometryOrdered By: Rashard Epstein on 09-12-2023 Specific gravity Refractometry automated (U) [Rel density] 1.028 1.001-1.030 [facility] Basophils Auto (Bld) [#/Vol] Ordered By: Rashard Epstein on 09-12-2023 Basophils (Bld) [#/Vol] 0.0 10*3/uL 0.0-0.2 [facility] Basophils/100 WBC Auto (Bld) Ordered By: Rashard Epstein on 09-12-2023 Basophils/100 WBC (Bld) 0.8 % . [facility] Bilirubin Auto test strip Ql (U)Ordered By: Rashard Epstein on 09-12-2023 Bilirubin Ql (U) See comment Negative [facility] Comment on above: Unable to obtain acc urate result due to color interference. C reactive protein [Mass/vol ume] in Serum or PlasmaOrdered By: Rashard Epstein on 09-12-2023 CRP [Mass/Vol] 0.6 mg/dL 0.0-0.5 [facility] C-Reactive Proteinon 024 C-Reactive Protein 0.6 mg/dL High 0.0-0.5 [facility] Comment on above: Result Comment: PERF ORMED BY: [place] [address] PATHOLOGIST [employer]GSHEAD BUILDER KEYON SERNA M.D. Performed By: #### C BC, ADDONUAPLUS, ESR, CUU, CRP, CREAT #### [address] #### C4, C3 #### [facility] , Complement C3on 09-12-2023 Complement C3 155 mg/dL Normal 82-167 [facility] Comment on above: Result Comment: Perf ormed at: - [facility] [place] [id number] Cyber Security Engineer: Paul Dumont PhD, Phone: [phone] Performed By: #### C BC, ADDONUAPLUS, ESR, CUU, CRP, CREAT #### [address] #### C4, C3 #### [facility] , Complement C4on 09-12-2023 Complement C4 34 mg/dL Normal 12-38 [facility] Comment on above: Result Comment: PERF ORMED BY: [place] [address] PATHOLOGIST HOGSHEAD BUILDER KEYON SERNA M.D. Performed By: #### C BC, ADDONUAPLUS, ESR, CUU, CRP, CREAT #### [address] #### C4, C3 #### [facility] , Complete Blood Count Auto Di ffon 09-12-2023 Basophils (Bld) [#/Vol] 0.0 10*3/uL Normal 0.0-0.2 [facility] Comment on above: Performed By: #### C BC, ADDONUAPLUS, ESR, CUU, CRP, CREAT #### [place] [address] [place] #### C4, C3 #### [facility] , Basophils/100 WBC (Bld) 0.8 % Normal . [facility] Comment on above: Performed By: #### C BC, ADDONUAPLUS, ESR, CUU, CRP, CREAT #### [place] [address] [place] #### C4, C3 #### [facility] , Eosinophils (Bld) [#/Vol] 0.2 10*3/uL Normal 0.0-0.45 [facility] Comment on above: Performed By: #### C BC, ADDONUAPLUS, ESR, CUU, CRP, CREAT #### [place] [address] [place] #### C4, C3 #### [facility] , Eosinophils/100 WBC (Bld) 4.0 % Normal . [facility] Comment on above: Performed By: #### C BC, ADDONUAPLUS, ESR, CUU, CRP, CREAT #### [place] [address] [place] #### C4, C3 #### [facility] , Erythrocyte distribution width (RBC) [Ratio] 14.3 % Normal 11.9-15.3 [facility] Comment on above: Performed By: #### C BC, ADDONUAPLUS, ESR, CUU, CRP, CREAT #### [facility] [address] [place] [address] [place] #### C4, C3 #### [facility] , Hematocrit (Bld) [Volume fraction] 39.2 % Normal 34.0-46.4 [facility] Comment on above: Performed By: #### C BC, ADDONUAPLUS, ESR, CUU, CRP, CREAT #### [place] [address] [place] #### C4, C3 #### [facility] , Hemoglobin (Bld) [Mass/Vol] 12.9 g/dL Normal 11.8-15.4 [facility] Comment on above: Performed By: #### C BC, ADDONUAPLUS, ESR, CUU, CRP, CREAT #### [place] [address] [place] #### C4, C3 #### [facility] , Lymphocytes (Bld) [#/Vol] 1.8 10*3/uL Normal 1.00-4.8 [facility] Comment on above: Performed By: #### C BC, ADDONUAPLUS, ESR, CUU, CRP, CREAT #### [place] [address] [place] #### C4, C3 #### [facility] , Lymphocytes/100 WBC (Bld) 31.9 % Normal . [facility] Comment on above: Performed By: #### C BC, ADDONUAPLUS, ESR, CUU, CRP, CREAT #### [place] [address] [place] #### C4, C3 #### [facility] , MCH (RBC) [Entitic mass] 31.1 pg Normal 24.7-34.3 [facility] Comment on above: Performed By: #### C BC, ADDONUAPLUS, ESR, CUU, CRP, CREAT #### [address] #### C4, C3 #### [facility] , MCV (RBC) [Entitic vol] 94.4 fL Normal 80-100 [facility] Comment on above: Performed By: #### C BC, ADDONUAPLUS, ESR, CUU, CRP, CREAT #### [place] [address] [place] #### C4, C3 #### [facility] , Mean Corpuscular HGB Conc 33.0 g/dL Normal 32.0-35.0 [facility] Comment on above: Performed By: #### C BC, ADDONUAPLUS, ESR, CUU, CRP, CREAT #### [place] [address] [place] #### C4, C3 #### [facility] , Monocytes (Bld) [#/Vol] 0.5 10*3/uL Normal 0.0-0.8 [facility] Comment on above: Performed By: #### C BC, ADDONUAPLUS, ESR, CUU, CRP, CREAT #### [place] [address] [place] #### C4, C3 #### [facility] , Monocytes/100 WBC (Bld) 8.5 % Normal . [facility] Comment on above: Performed By: #### C BC, ADDONUAPLUS, ESR, CUU, CRP, CREAT #### [address] #### C4, C3 #### [facility] , Neutrophils (Bld) [#/Vol] 3.1 10*3/uL Normal 1.8-7.7 [facility] Comment on above: Performed By: #### C BC, ADDONUAPLUS, ESR, CUU, CRP, CREAT #### [place] [address] [place] #### C4, C3 #### [facility] , Neutrophils/100 WBC (Bld) 54.8 % Normal . [facility] Comment on above: Performed By: #### C BC, ADDONUAPLUS, ESR, CUU, CRP, CREAT #### [place] [address] [place] #### C4, C3 #### [facility] , NRBC% 0.2 /100{WBC} Normal 0-0.5 [facility] Comment on above: Performed By: #### C BC, ADDONUAPLUS, ESR, CUU, CRP, CREAT #### [place] [address] [place] #### C4, C3 #### [facility] , Platelet mean volume (Bld) [Entitic vol] 7.6 fL Normal 6.3-10.7 [facility] Comment on above: Performed By: #### C BC, ADDONUAPLUS, ESR, CUU, CRP, CREAT #### [facility] [address] [place] [address] [place] #### C4, C3 #### [facility] , Platelets (Bld) [#/Vol] 263 10*3/uL Normal 150-450 [facility] Comment on above: Performed By: #### C BC, ADDONUAPLUS, ESR, CUU, CRP, CREAT #### [place] [address] [place] #### C4, C3 #### [facility] , RBC (Bld) [#/Vol] 4.16 10*6/uL Normal 3.60-5.00 [facility] Comment on above: Performed By: #### C BC, ADDONUAPLUS, ESR, CUU, CRP, CREAT #### [facility] [address] [place] [address] [place] #### C4, C3 #### [facility] , WBC (Bld) [#/Vol] 5.7 10*3/uL Normal 3.8-11.6 [facility] Comment on above: Performed By: #### C BC, ADDONUAPLUS, ESR, CUU, CRP, CREAT #### [facility] [address] [place] [address] [place] #### C4, C3 #### [facility] , Creatinineon 09-12-2023 Creatinine [Mass/Vol] 0.92 mg/dL Normal 0.60-1.20 [facility] Comment on above: Performed By: #### C BC, ADDONUAPLUS, ESR, CUU, CRP, CREAT #### [facility] [address] [place] [address] [place] #### C4, C3 #### [facility] , GFR/1.73 sq M.predicted MDRD (S/P/Bld) [Vol rate/Area] mL/min/{1.73_m2} Normal [facility] Comment on above: Performed By: #### C BC, ADDONUAPLUS, ESR, CUU, CRP, CREAT #### [facility] [address] [place] [address] [place] #### C4, C3 #### [facility] , Creatinine [Mass/volume] in Serum or PlasmaOrdered By: Rashard Epstein on 09-12-2023 Creatinine [Mass/Vol] 0.92 mg/dL 0.60-1.20 [facility] Dipstick and Microscopicon 0 09-12-2023 Appearance (U) Slightly Cloudy Critically abnormal Clear [facility] Comment on above: Order Comment: Name Collection Type:: Clean-Voided Midstream Performed By: #### C BC, ADDONUAPLUS, ESR, CUU, CRP, CREAT #### [facility] [address] [place] [address] #### C4, C3 #### [facility] , Bacteria,Urine 2+ High None Seen [facility] Comment on above: Order Comment: Name Collection Type:: Clean-Voided Midstream Performed By: #### C BC, ADDONUAPLUS, ESR, CUU, CRP, CREAT #### [facility] [address] [place] [address] [place] #### C4, C3 #### [facility] , Bilirubin,Urine Normal Negative [facility] Comment on above: Order Comment: Name Collection Type:: Clean-Voided Midstream Result Comment: Unab le to obtain accurate result due to color interference. Performed By: #### C BC, ADDONUAPLUS, ESR, CUU, CRP, CREAT #### [facility] [address] [place] [address] [place] #### C4, C3 #### [facility] , Color (U) [place] Critically abnormal Yellow [facility] Comment on above: Order Comment: Name Collection Type:: Clean-Voided Midstream Performed By: #### C BC, ADDONUAPLUS, ESR, CUU, CRP, CREAT #### [address] #### C4, C3 #### [facility] , Glucose Ql (U) Normal Normal [facility] Comment on above: Order Comment: Name Collection Type:: Clean-Voided Midstream Result Comment: Unab le to obtain accurate result due to color interference. Performed By: #### C BC, ADDONUAPLUS, ESR, CUU, CRP, CREAT #### [address] #### C4, C3 #### [facility] , Hyaline Casts,Urine 0-1 Normal 0-1 [facility] Comment on above: Order Comment: Name Collection Type:: Clean-Voided Midstream Performed By: #### C BC, ADDONUAPLUS, ESR, CUU, CRP, CREAT #### [address] #### C4, C3 #### [facility] , Ketones Ql (U) Normal Negative [facility] Comment on above: Order Comment: Name Collection Type:: Clean-Voided Midstream Result Comment: Unab le to obtain accurate result due to color interference. Performed By: #### C BC, ADDONUAPLUS, ESR, CUU, CRP, CREAT #### [place] [address] [place] #### C4, C3 #### [facility] , Leukocyte esterase Test strip Ql (U) Normal Negative [facility] Comment on above: Order Comment: Name Collection Type:: Clean-Voided Midstream Result Comment: Unab le to obtain accurate result due to color interference. Performed By: #### C BC, ADDONUAPLUS, ESR, CUU, CRP, CREAT #### [place] [address] [place] #### C4, C3 #### [facility] , Nitrite,Urine Normal Negative [facility] Comment on above: Order Comment: Name Collection Type:: Clean-Voided Midstream Result Comment: Unab le to obtain accurate result due to color interference. Performed By: #### C BC, ADDONUAPLUS, ESR, CUU, CRP, CREAT #### [place] [address] [place] #### C4, C3 #### [facility] , Occult Blood,Urine Normal Negative [facility] Comment on above: Order Comment: Name Collection Type:: Clean-Voided Midstream Result Comment: Unab le to obtain accurate result due to color interference. Performed By: #### C BC, ADDONUAPLUS, ESR, CUU, CRP, CREAT #### [address] #### C4, C3 #### [facility] , pH,Urine Normal 5.0-9.0 [facility] Comment on above: Order Comment: Name Collection Type:: Clean-Voided Midstream Result Comment: Unab le to obtain accurate result due to color interference. Performed By: #### C BC, ADDONUAPLUS, ESR, CUU, CRP, CREAT #### [place] [address] [place] #### C4, C3 #### [facility] , Protein,Urine Normal Negative [facility] Comment on above: Order Comment: Name Collection Type:: Clean-Voided Midstream Result Comment: Unab le to obtain accurate result due to color interference. Performed By: #### C BC, ADDONUAPLUS, ESR, CUU, CRP, CREAT #### [place] [address] [place] #### C4, C3 #### [facility] , RBC,Urine 3-4 Normal 0-4 [facility] Comment on above: Order Comment: Name Collection Type:: Clean-Voided Midstream Performed By: #### C BC, ADDONUAPLUS, ESR, CUU, CRP, CREAT #### [address] #### C4, C3 #### [facility] , Specificy [place],Urine 1.028 Normal 1.001-1.030 [facility] Comment on above: Order Comment: Name Collection Type:: Clean-Voided Midstream Performed By: #### C BC, ADDONUAPLUS, ESR, CUU, CRP, CREAT #### [address] #### C4, C3 #### [facility] , Squamous Epithelial Cell,Urine 5-9 High 0-2 [facility] Comment on above: Order Comment: Name Collection Type:: Clean-Voided Midstream Performed By: #### C BC, ADDONUAPLUS, ESR, CUU, CRP, CREAT #### [address] #### C4, C3 #### [facility] , Urobilinogen,Urine Normal Normal [facility] Comment on above: Order Comment: Name Collection Type:: Clean-Voided Midstream Result Comment: Unab le to obtain accurate result due to color interference. Performed By: #### C BC, ADDONUAPLUS, ESR, CUU, CRP, CREAT #### [address] #### C4, C3 #### [facility] , WBC,Urine 50-100 High 0-4 [facility] Comment on above: Order Comment: Name Collection Type:: Clean-Voided Midstream Performed By: #### C BC, ADDONUAPLUS, ESR, CUU, CRP, CREAT #### [address] #### C4, C3 #### [facility] , Yeast,Urine Rare Critically abnormal None Seen [facility] Comment on above: Order Comment: Name Collection Type:: Clean-Voided Midstream Result Comment: PERF ORMED BY: [place] [address] PATHOLOGIST [employer]GSHEAD BUILDER KEYON SERNA M.D. Performed By: #### C BC, ADDONUAPLUS, ESR, CUU, CRP, CREAT #### [facility] [address] [place] [address] #### C4, C3 #### [facility] , Eosinophils Auto (Bld) [#/Vo l]Ordered By: Rashard Epstein on 09-12-2023 Eosinophils (Bld) [#/Vol] 0.2 10*3/uL 0.0-0.45 [facility] Eosinophils/100 WBC Auto (Bl d)Ordered By: Rashard Epstein on 09-12-2023 Eosinophils/100 WBC (Bld) 4.0 % . [facility] Erythrocyte Sedimentation Ra duyen 09-12-2023 ESR (Bld) [Velocity] 23 mm/h Normal 0-29 [facility] Comment on above: Result Comment: PERF ORMED BY: [place] [address] PATHOLOGIST [employer]GS[employer] BUILDER KEYON SERNA M.D. Performed By: #### C BC, ADDONUAPLUS, ESR, CUU, CRP, CREAT #### [facility] [address] [place] [address] #### C4, C3 #### [facility] , Erythrocyte distribution wid th Auto (RBC) [Ratio]Ordered By: Rashard Epstein on 09-12-2023 Erythrocyte distribution width (RBC) [Ratio] 14.3 % 11.9-15.3 [facility] Erythrocyte sedimentation ra te by Photometric methodOrdered By: Rashard Epstein on 09-12-2023 ESR Photometric method (Bld) [Velocity] 23 mm/hr 0-29 [facility] Hematocrit Auto (Bld) [Volum e fraction]Ordered By: Rashard Epstein on 09-12-2023 Hematocrit (Bld) [Volume fraction] 39.2 % 34.0-46.4 [facility] Hemoglobin [Mass/volume] in BloodOrdered By: Rashard Epstein on 09-12-2023 Hemoglobin (Bld) [Mass/Vol] 12.9 g/dL 11.8-15.4 [facility] Ketones Test strip (U) [Mass /Vol]Ordered By: Rashard Epstein on 09-12-2023 Ketones (U) [Mass/Vol] See comment Negative [facility] Comment on above: Unable to obtain acc urate result due to color interference. Leukocytes [#/volume] correc edwige for nucleated erythrocytes in Blood by Automated counOrdered By: Rashard Epstein on 09-12-2023 WBC corrected for nucl RBC Auto (Bld) [#/Vol] 5.7 10*3/uL 3.8-11.6 [facility] Lymphocytes Auto (Bld) [#/Vo l]Ordered By: Rashard Epstein on 09-12-2023 Lymphocytes (Bld) [#/Vol] 1.8 10*3/uL 1.00-4.8 [facility] Lymphocytes/100 WBC Auto (Bl d)Ordered By: Rashard Epstein on 09-12-2023 Lymphocytes/100 WBC (Bld) 31.9 % . [facility] MCH Auto (RBC) [Entitic mass ]Ordered By: Rashard Epstein on 09-12-2023 MCH (RBC) [Entitic mass] 31.1 pg 24.7-34.3 [facility] MCHC Auto (RBC) [Mass/Vol]Or dered By: Rashard Epstein on 09-12-2023 MCHC (RBC) [Mass/Vol] 33.0 g/dL 32.0-35.0 [facility] MCV Auto (RBC) [Entitic vol] Ordered By: Rashard Epstein on 09-12-2023 MCV (RBC) [Entitic vol] 94.4 fL 80-100 [facility] Monocytes Auto (Bld) [#/Vol] Ordered By: Rashard Epstein on 09-12-2023 Monocytes (Bld) [#/Vol] 0.5 10*3/uL 0.0-0.8 [facility] Monocytes/100 WBC Auto (Bld) Ordered By: Rashard Epstein on 09-12-2023 Monocytes/100 WBC (Bld) 8.5 % . [facility] Neutrophils Auto (Bld) [#/Vo l]Ordered By: Rashard Epstein on 09-12-2023 Neutrophils (Bld) [#/Vol] 3.1 10*3/uL 1.8-7.7 [facility] Neutrophils/100 WBC Auto (Bl d)Ordered By: Rashard Epstein on 09-12-2023 Neutrophils/100 WBC (Bld) 54.8 % . [facility] No Panel InformationOrdered By: Rashard Epstein on 09-12-2023 Estimated GFR (CKD-EPI) > 60.0 mL/Min [facility] Creatinine Clearance (Chem N/A [facility] Nucleated erythrocytes [Pres ence] in Blood by Automated countOrdered By: Rsahard Epstein on 09-12-2023 Nucleated RBC Auto Ql (Bld) 0.2 /100{WBC} 0-0.5 [facility] Platelet mean volume Auto (B ld) [Entitic vol]Ordered By: Rashard Epstein on 09-12-2023 Platelet mean volume (Bld) [Entitic vol] 7.6 fL 6.3-10.7 [facility] Platelets Auto (Bld) [#/Vol] Ordered By: Rashard Epstein on 09-12-2023 Platelets (Bld) [#/Vol] 263 10*3/uL 150-450 [facility] Protein Auto test strip (U) [Mass/Vol]Ordered By: Rashard Epstein on 09-12-2023 Protein (U) [Mass/Vol] See comment Negative [facility] Comment on above: Unable to obtain acc urate result due to color interference. RBC Auto (Bld) [#/Vol]Ordere d By: Rashard Epstein on 09-12-2023 RBC (Bld) [#/Vol] 4.16 10*6/uL 3.60-5.00 [facility] Urine Cultureon 09-12-2023 Bacteria identified Cx Nom (U) <9,000 colonies/ml mixed bacterial skin contaminants 2 Days PERFORMED BY: [place] [address] PATHOLOGIST [employer] BUILDER KEYON SERNA M.D. [facility] Comment on above: Performed By: #### C BC, ADDONUAPLUS, ESR, CUU, CRP, CREAT #### [facility] [address] [place] [address] [place] #### C4, C3 #### [facility] , Urine appearanceOrdered By: Rashard Epstein on 09-12-2023 Appearance (U) Slightly cloudy Clear [facility] Urine bacteria detection by automated methodOrdered By: Rashard Epstein on 09-12-2023 Bacteria Auto Ql (U) 2+ None Seen [facility] Urine colorOrdered By: Arthur Epstein on 09-12-2023 Color (U) Union Yellow [facility] Urine glucose measurement by automated test strip (mass/volume)Ordered By: Rashard Epstein on 09-12-2023 Glucose Auto test strip (U) [Mass/Vol] See comment [facility] Comment on above: Unable to obtain acc urate result due to color interference. Urine leukocyte esterase det ection by automated test stripOrdered By: Rashard Epstein on 09-12-2023 Leukocyte esterase Auto test strip Ql (U) See comment Negative [facility] Comment on above: Unable to obtain acc urate result due to color interference. Urine nitrite detection by a utomated test stripOrdered By: Rashard Epstein on 09-12-2023 Nitrite Auto test strip Ql (U) See comment Negative [facility] Comment on above: Unable to obtain acc urate result due to color interference. Urobilinogen Test strip (U) [Mass/Vol]Ordered By: Rashard Epstein on 09-12-2023 Urobilinogen (U) [Mass/Vol] See comment [facility] Comment on above: Unable to obtain acc urate result due to color interference. WBC Auto (Bld) [#/Vol]Ordere d By: Rashard Epstein on 09-12-2023 WBC (Bld) [#/Vol] 5.7 10*3/uL 3.8-11.6 [facility] Yeast detection in urine sed iment by light microscopyOrdered By: Rashard Epstein on 09-12-2023 Yeast LM Ql (Urine sed) Rare [HPF] None Seen [facility] pH Auto test strip (U)Ordere d By: Rashard Epstein on 09-12-2023 pH (U) See comment 5.0-9.0 [facility] Comment on above: Unable to obtain acc urate result due to color interference. 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 She only started the medication after her heart attack and never exceeds the recommended dose. She visited [facility] due to elevated blood pressure and was [...] has been treated by several doctors at [place]'s emergency room. Her nervous system has been [...] with voice recognition artificial intelligence software, specifically [employer], [employer] and or [employer]. Substitutions may have occurred with voice recognition and artificial intelligence software. ATTESTATION: Documentation services were performed after patient or guardian consented to allow [employer] to record this visit. DARVIN imcu specialist and provider reviewed before signing. DARVIN: Padmini Cook. Follow-up No qualifying data available Problem List/Past Medical History Ongoing Adjustment disorder with anxious mood Anemia Anxiety Atherosclerosis aorta Bladder stone BMI 29.0-29.9,adult CAD in [place] artery Disorder of vitamin D Essential hypertension [...] Sciatica Procedu (more content not included)... Normal [facility] Comment on above: Result Comment: Elec tronically Signed By: Portillo PIPER, Rahul Varner\.br\Date and Time Signed: 08/27/23 20:52 EST\.br\Electronically Co-Signed By: Padmini Cook\.br\Date and Time Co-Signed: 08/15/23 16:49 EST URINE CULTURE, ROUTINEon Bacteria identified Cx Nom (U) No growth at 48 hours Normal [facility] Comment on above: Performed By: #### L [id number] #### [facility] [address] [place] [address] Urinalysis - AUTOMATEDon Appearance (U) clear [employer] Other Bilirubin Ql (U) Negative [employer] Other Color (U) orange [employer] Other Glucose Ql (U) 100 [employer] Other Hemoglobin Ql (U) small [employer] Other Ketones Ql (U) Negative [employer] Other Leukocyte esterase Test strip Ql (U) large [employer] Other Nitrite Ql (U) Positive [employer] Other pH (U) 5.0 [pH] [employer] Other Protein Ql (U) 100 [employer] Other Specific gravity (U) [Rel density] 1.010 [employer] Other Urobilinogen (U) [Mass/Vol] 1.0 mg/dL [employer] Other Urinalysis - AUTOMATED No rt [employer] Other Urine Cultureon 08-17-2023 Bacteria identified Cx Nom (U) <9,000 colonies/ml mixed bacterial skin contaminants 2 Days PERFORMED BY: [place] [address] PATHOLOGIST HOGSHEAD BUILDER KEYON SERNA M.D. [facility] Comment on above: Performed By: #### C BC, ADDONUAPLUS, ESR, CUU, CRP, CREAT #### [facility] [address] [place] [address] [place] #### C4, C3 #### [facility] , Bacteria identified Cx Nom (U) [employer] Other Urine culture routineOrdered By: Shayy Garza on 08-17-2023 Bacteria identified Cx Nom (U) 2 Days [facility] Physician Orderon 08-16-2023 Physician Order [id number]#1.0 0TIFF [facility] Ambulatory Visit Summaryon 1 10-16-2022 Ambulatory Visit Summary TEA RAHMAN :1945 Visit Date:2023 Ambulatory Visit Instructions Your Care Team Admitting Physician - Camelia LOW CNP Attending Physician - Portillo PIPER, Rahul Varner Primary Care Physician - NONE, XXXX Referring [...] bypass grafts x 2, Cardiac catheter, Cholecystectomy, KLUAS BSO - Total abdominal hysterectomy and bilateral salpingo-oophorectomy. Discharge Vitals Height 170 cm Height 67 in Weight 72 kg Weight 158.4 lb BMI 24.91 What to do next Scheduled Follow-Up Appointments Monday 11:00 AM EST With: [place] Where: [facility] Behavioral Health [facility] Monday 12:15 PM EDT With: Portillo PIPER, Rahul Varner Where: [facility] Medications What How [...] aorta Bladder stone BMI 29.0-29.9,adult CAD in [place] artery Disorder of vitamin D Essential hypertension [...] for choosing us for your care. Normal [facility] Urinalysis - AUTOMATEDon Appearance (U) clear [employer] Other Bilirubin Ql (U) Negative [employer] Other Color (U) bright orange [employer] Other Glucose Ql (U) Negative [employer] Other Hemoglobin Ql (U) Negative [employer] Other Ketones Ql (U) Negative [employer] Other Leukocyte esterase Test strip Ql (U) small [employer] Other Nitrite Ql (U) Positive [employer] Other pH (U) 6.0 [pH] [employer] Other Protein Ql (U) Negative [employer] Other Specific gravity (U) [Rel density] >1.010 [employer] Other Urobilinogen (U) [Mass/Vol] 0.2 mg/dL [employer] Other Urinalysis - AUTOMATED No rt [employer] Other Urine Cultureon 08-01-2023 Bacteria identified Cx Nom (U) Reason for Exam Dysuria Urine Reason for Exam: Dysuria : Urine No Growth 2 Days PERFORMED BY: [place] [address] PATHOLOGIST HOGSHEAD BUILDER KEYON SERNA M.D. [facility] Comment on above: Performed By: #### C BC, ADDONUAPLUS, ESR, CUU, CRP, CREAT #### [facility] [address] [place] [address] [place] #### C4, C3 #### [facility] , Bacteria identified Cx Nom (U) [employer] Other Urine culture routineOrdered By: Mary Toure on 08-01-2023 Bacteria identified Cx Nom (U) No Growth 2 Days [facility] Outside Recordson 07-27-2023 Outside Records [id number]#1.0 0TIFF [facility] Consultation Noteon 07-25-20 Consultation Note [id number]#1.0 0TIFF [facility] ED Note-Physicianon 07-19-20 ED Note-Physician [id number]#1.0 0TIFF [facility] RAD - MISCon 07-19-2023 RAD - MISC [id number]#1.0 0TIFF Normal [facility] Heart and Vascular Office/Cl inic Noteon 07-15-2023 [...] with voice recognition artificial intelligence software, specifically [employer], [employer] and or [employer]365. Substitutions may have occurred due to the inherent limitations of voice recognition and artificial intelligence software. ATTESTATION: Documentation services were performed after the patient or guardian consented to allow [employer] to record this visit. DARVIN imcu specialist and provider reviewed before signing. DARVIN: Veronica Uribetony Follow-up No qualifying data available Problem List/Past Medical History Ongoing Anemia Anxiety Atherosclerosis aorta Bladder stone BMI 29.0-29.9,adult CAD in [place] artery Disorder of vitamin D Essential hypertension [...] mg T (more content not included)... Normal [facility] Comment on above: Result Comment: Elec tronically [...] her insurance companies. Her urologist is at [facility] in [place], [place], and they were having problems with [...] with voice recognition artificial intelligence software, specifically [employer], [employer] and or [employer]. Substitutions may have occurred with voice recognition and artificial intelligence software. ATTESTATION: Documentation services were performed after patient or guardian consented to allow [employer] to record this visit. DARVIN imcu specialist and provider reviewed before signing. DARVIN: Ruben Bernal. Follow-up No qualifying data available Problem List/Past Medical History Ongoing Anemia Anxiety Atherosclerosis aorta Bladder stone BMI 29.0-29.9,adult CAD in [place] artery Depression Disorder of vitamin D Essential [...] oral table (more content not included)... Normal [facility] Comment on above: Result Comment: Elec tronically Signed By: Portillo PIPER, Rahul Varner\.br\Date and Time Signed: 07/15/23 12:13 EST\.br\Electronically Co-Signed By: Ruben Bernal\.br\Date and Time Co-Signed: 05/26/23 12:49 EDT Consultation Noteon 07-06-20 Consultation Note [id number]#1.00 TIFF [facility] Consultation Noteon 07-03-20 Consultation Note [id number]#1.0 0TIFF [facility] Family Medicine Office/Clini c Noteon 06-27-2023 Family Medicine Office/Clinic Note HPI Staff Tea is a 77 year old female presenting for one month follow up meds check for mood and pain Pain characteristics: Pain location: generalized, fibro and OA Intensity:8/10 Onset: years Medication used: hydrocodone Opioids prescribed: [...] it. She voiced her dissatisfaction with her manager of customer billing, having seen many but not finding one who would truly listen to her. She mentioned that one of them would just take blood samples every visit, making it difficult for her to communicate with him. She informed this manager of customer billing about a blood test for her bladder that revealed 100 stones, but he dismissed it. However, he later acknowledged that it did indeed occur. She expressed her desire to seek a different manager of customer billing due to these experiences. She states that [...] Despite feeling misunderstood, she acknowledges the other green party's perspective. She clarifies that she splits her [...] current use of opiate analgesic drug (Z79.891: intermediate card tender (c (more content not included)... Normal [facility] Comment on above: Result Comment: Elec tronically Signed By: Anoop Almanzar MD\.br\Date and Time Signed: 06/27/23 08:27 EST\.br\Electronically Co-Signed By: Lucia Ramos\.br\Date and Time Co-Signed: 06/22/23 20:26 EDT Behavioral Health Sensitive Noteon 06-26-2023 Behavioral Health Sensitive Note Spoke with patient and she has decided to switch primary care physicians. Clinician has continued to offer services as needed. community action worker will continue to monitor the situation. 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 Primary Care Physician - Anoop Almanzar MD [...] Follow-Up Appointments Monday 9:30 AM EST Where: [facility] [place] Normal [facility] Heart and Vascular Office/Cl inic Noteon 06-19-2023 [...] her blood pressure. She consulted her regular caster helper when her symptoms began. During the visit, she recalled an incident from 2 months ago when she felt chest pressure for a duration of 10 minutes. The caster helper reassured her that her condition, including her blood pressure concern, was normal. Despite her open-heart surgery that took place on May 10, 2020, the caster helper conveyed that the period since the procedure [...] up in 4 to 6 weeks in [place]. 1. Chest pain (R07.9: Chest pain, unspecified) Could represent angina we will order stress. We will also order echocardiogram 2. CAD in [place] artery (I25.10: Atherosclerotic heart disease of [place] coronary artery without angina pectoris) CAD: DAPT, beta-doretha, statin, risk factor modification. 3. HTN (hypertension) (I10: Essential (primary) hypertension) HTN: BP control with antihypertensives targeting blood pressure less than 130/80. If control is not currently achieved we will be adding additional antihypertensive or increasing dose. Stopping amlodipine Portions of this record may have been created with voice recognition artificial intelligence software, specifically Yeahka (more content not included)... [facility] Comment on above: Result Comment: [...] location: generalized all over, fibro and OA Intensity:610 Onset: years Medication used: oxycodone acetaminophen Opioids [...] someone. She requires a refill of her White Stone prescription. She was advised not to take benzodiazepines, which include Xanax and the White Stone, simultaneously. She primarily uses White Stone to alleviate joint pain and arthritis symptoms. She mentions being diagnosed with lupus at the age of 35 [address] Torres in [place]. She also indicates that she is currently [...] will go ahead and send her to [facility] psychiatry to help with medications. 2. Primary fibromyalgia syndrome (M79.7: Fibromyalgia) We will refill the patient's White Stone for 1 month and we will see her back in a month. Discussed the pros and cons of using benzo and a narcotic at the same time. Patient understands the concerns. Patient has been a long-term user of the opioids and at this time is stable. 3. Long-term current use of opiate analgesic drug (Z79.891: intermediate card tender (current) use of opiate analgesic) As per # 2. 4. Irritable bowel syndrome (K58.9: Irritable bowel syndrome without diarrhea) (more content not included)... Normal [facility] Comment on above: Result Comment: Elec tronically Signed By: Anoop Almanzar MD\.br\Date and Time Signed: 06/06/23 07:46 EDT\.br\Electronically Co-Signed By: Lucia Ramos\.br\Date and Time Co-Signed: 05/30/23 17:17 EDT Physician Orderon 06-02-2023 Physician Order [id number]#1.0 0TIFF Normal [facility] Medication Consenton Medication Consent [id number] 0TIFF Normal [facility] Physician Referralon Physician Referral [id number]#1. 00TIFF [facility] Ambulatory Visit Summaryon Ambulatory Visit Summary TEA RAHMAN :1945 Visit [...] Portillo PIPER, Rahul Varner Where: [facility] [place] Monday 1:00 PM EDT With: [place] Where: [facility] [place] Monday 2:40 PM EST With: Anoop Almanzar MD Where: [facility] Invalid Interpretation Code [address] [place] [address]- \.br \ Someone Will Contact You Regarding These Appointments \.br\ [facility] External Ambulatory Referral, Psychiatry, Community health services in [place]., 05/30/23 14:54:00 EDT, Anxiety [facility] Pre-Visit Planningon 023 Pre-Visit Planning - From: Yuliya ORTEZ, Kim To: Anoop Almanzar MD; Sent: 05/29/2023 13:24:19 EDT Subject: Pre-Visit Planning Due Date/Time: 05/29/2023 13:24:00 EDT Caller Name: TEA RAHMAN; Caller Number: , Id Dr. Almanzar, *Based on your response below, can you please update the chronic problem list and address during this visit if appropriate?* During a pre-visit planning chart review, I noted the following documentation in the medical record: Current medications: Hydroxychloroquine 12/21/2022 office note-When the patient was diagnosed with lupus, she was referred to a manager of customer billing in [place]. She tried a different manager of customer billing in [place] where she stayed until that provider retired. [...] very fatigued. 03/20/2023 office note- has a manager of customer billing not working out for her wants to find a new one needs her proctofoam refilled for the hemorrhoids and also dr santana gave her hyoscamine for blow outs but refills ran out as she doesn't use all the time, can she get more recent phq9-15 recent leanne-15 urine collected and processed 03/21/2023 [facility] page 1 has major depressive disorder single episode mild and systemic lupus erythematosus 03/28/2023 office note-Patient is taking half a tablet of White Stone twice daily and steroids for her fibromyalgia, lupus, and arthritis. She reports continued pain in her shoulders and upper back. She was unable to receive epidural in the sciatic nerve due to miscommunication regarding the appointment. She requests prescription of hydroxychloroquine to take as needed for flares. She is looking for a manager of customer billing. Based on your medical judgment, can you [...] feel free to contact me at extension [phone]. Thank you! Kim Dwyer, SUREKHAN, RN, CCM, CCDS, CCDS-O Invalid Interpretation Code [address] [facility] Pre-Visit Planning - From: Yuliya ORTEZ, Kim To: Yohan PIPER, Anoop Lal; Sent: 05/29/2023 13:16:19 EDT Subject: Pre-Visit Planning Due Date/Time: 05/29/2023 13:16:00 EDT Caller Name: TEA RAHMAN; Caller Number: Olga Lidia , M Id Dr. Almanzar, *Based on your response below, [...] as well as the Xanax PRN. 03/21/2023 [facility] page 1 has major depressive disorder [...] feel free to contact me at extension [phone]. Thank you! SUREKHA CoffmanN, RN, CCM, CCDS, CCDS-O Invalid Interpretation Code [address] [facility] Physician Orderon 05-26-2023 Physician Order [id number]#1. 00TIFF Normal [facility] NM Myocardial Spect Rest/Str ess 1 Dayon [...] (Electronic Signature): 05/19/2023 11:51 am Signed by: Rahul Salas MD Transcribed by: courtney Technologist: CHRIS Technical Comments Rest Dose (mCi Tc99m Cardiolite): 10.9 Stress Dose (mCi Tc99M Cardiolite): 30.0 [facility] Stress EKG Tracingson 2022 Stress EKG Tracings [id number]#1. 00CD:127 [facility] Consent for Treatmenton 04-22 Consent for Treatment [id number]#1.0 0CD:127 [facility] Consent for Treatmenton 04-21 Consent for Treatment [id number]#1.0 0CD:127 [facility] Consultation Noteon 05-08-20 23 Consultation Note [id number]#1.0 0CD:127 [facility] Consultation Note [id number]#1.00 CD:127 [facility] Urine Cultureon 05-04-2023 Bacteria identified Cx Nom (U) Reason for Exam Dysuria Urine 50,000 colonies/ml mixed bacterial skin contaminants 2 Days PERFORMED BY: [place] [address] PATHOLOGIST HOGSHEAD BUILDER KEYON SERNA M.D. [facility] Comment on above: Performed By: #### C UU #### [address] Physician Orderon 04-21-2023 Physician Order [id number]#1.0 0CD:127 [facility] Physician Referralon 023 Physician Referral [id number]#1. 00CD:127 Normal [facility] Medicine Office/Clini c Noteon 04-17-2023 Family Medicine [...] Norvasc. Patient will follow-up with cardiology. Ordered: [facility] Internal Ambulatory Referral 2. Post-nasal drip (R09.82: Postnasal drip) ? We will have the patient try the Zyrtec again. Discussed how the Zyrtec I do not believe is actually messing with her stomach but more the mucus. Ordered: [facility] Internal Ambulatory Referral 3. CAD in [place] artery (I25.10: Atherosclerotic heart disease of [place] coronary artery without angina pectoris) ? We will send to cardiology for further recommendations. Ordered: [facility] Internal Ambulatory Referral 4. BMI 28.0-28.9,adult (Z68.28: Body mass index [BMI] 28.0-28.9, adult) BMI education given. Ordered: Body Mass Index (BMI) documented 3008F Current tobacco non-user 1036F Depression Screening Negative 3352F [facility] Internal Ambulatory Referral Most recent diastolic blood pressure <80 mm Hg 3078F Patient screen for fall risk: no falls in last year or 1 fall with no injury in last year 1101F Systolic BP <130 mm Hg (Most Recent) 3074F 5. Overweight (E66.3: Overweight) As above. Ordered: Body Mass Index (BMI) documented 3008F Current tobacco non-user 1036F Depression Screening Negative 3352F [facility] Internal Ambulatory Referral Most recent diastolic blood pressure <80 mm Hg 3078F Patient screen for fall risk: no falls in last year or 1 fall with no injury in last year 1101F Systolic BP <130 mm Hg (Most Recent) 3074F Follow-up No qualifying data available Problem List/Past Medical History Ongoing Anemia Anxiety Atherosclerosis aorta Bladder stone BMI 29.0-29.9,adult CAD in [place] artery Depression Disorder of vitamin D Essential [...] Allergies Compazine (more content not included)... Normal [facility] Comment on above: Result Comment: Elec tronically Signed By: Yohan PIPER, Anoop Lal\.br\Date and Time Signed: 04/17/23 18:28 EDT Consultation Noteon 04-12-20 Consultation Note [id number]#1.0 0CD:127 [facility] Consultation Note [id number] 0CD:127 [facility] Family Medicine Office/Clini c Noteon 03-29-2023 Family [...] Patient is taking half a tablet of White Stone twice daily and steroids for her fibromyalgia, lupus, and arthritis. She reports continued pain in her shoulders and upper back. She was unable to receive epidural in the sciatic nerve due to miscommunication regarding the appointment. She requests prescription of hydroxychloroquine to take as needed for flares. She is looking for a manager of customer billing. The adult male reports the patient presented [...] well controlled with a half of a White Stone a day. 3. Long-term current use of opiate analgesic drug (Z79.891: intermediate card tender (current) use of opiate analgesic) As above. 4. BMI 28.0-28.9,adult (Z68.28: Body mass index [BMI] 28.0-28.9, adult) BMI education given. 5. OA - Osteoarthritis of knee (M17.10: Unilateral primary osteoarthritis, unspecified knee) Again, patient uses the steroids to help and patient is doing well with the use of half a White Stone twice a day. 6. Overweight (E66.3: Overweight) [...] with voice recognition artificial intelligence software, specifically [employer], [employer] and or [employer]. Substitutions may have occurred due to the inher (more content not included)... Normal [facility] Comment on above: Result Comment: Elec tronically Signed By: Anoop Almanzar MD\.br\Date and Time Signed: 03/29/23 09:38 EDT\.br\Electronically Co-Signed By: Lucia Ramos\.br\Date and Time Co-Signed: 03/28/23 19:25 EDT RAD - MISCon 03-29-2023 RAD - MISC [id number]#1.0 0CD:127 Normal [facility] Ambulatory Visit Summaryon 0 03-28-2023 Ambulatory Visit [...] PM EDT With: Anoop Almanzar MD Where: [facility] Normal [facility] Ambulatory Visit Summary TEA RAHMAN :1945 Visit [...] PM EDT With: Anoop Almanzar MD Where: [facility] Normal [facility] RAD - MISCon 03-21-2023 RAD - MIS [id number]#1.0 0CD:127 Normal [facility] Ambulatory Visit Summaryon 0 03-20-2023 Ambulatory Visit Summary TEA RAHMAN :1945 Visit Date:03/20/2023 Ambulatory Visit Instructions Your Diagnosis Abdominal pain Primary fibromyalgia syndrome BMI 29.0-29.9,adult Over weight Tests Performed Urnls Dip Stick Non-Auto w/o Micrscpy POC 03452 Your Care Team Attending Physician - Anoop [...] Follow-Up Appointments Monday 1:00 PM EDT With: Anoop Almanzar MD Where: [facility] Family Medicine Office/Clini c Noteon 03-20-2023 Family Medicine Office/Clinic [...] wasn't formed does have hemorrhoids has a manager of customer billing not working out for her wants to [...] ProctoFoam for Hemorrhoids - Would like another manager of customer billing. Review of Systems PHQ Score Initial Depression [...] Urnls Dip Stick Non-Auto w/o Micrscpy POC 11437 2. Primary fibromyalgia syndrome (M79.7: Fibromyalgia) - Will do a small steroid burst. - Then when patient finds a better Water Quality Control Engineer we will refer Ordered: methylPREDNISolone, = 1 packet(s), Oral, As Directed, as directed on package labeling, X 6 day(s), # 21 tab(s), Refills(s) 0, Pharmacy: [facility] #[id number], 167, cm, 03/20/23 11:45:00 EDT, Height/Length Dosing, 80.9, kg, 03/20/23 11:45:00 EDT, Weight Dosing 3. Hemorrhoids (K64.9: Unspecified hemorrhoids) - Proctofoam 4. BMI 29.0-29.9,adult (Z68.29: Body mass index [BMI] 29.0-29.9, adult) - BMI education given Ordered: methylPREDNISolone, = 1 packet(s), Oral, As Directed, as directed on package labeling, X 6 day(s), # 21 tab(s), Refills(s) 0, Pharmacy: [facility] #[id number], 167, cm, 03/20/23 11:45:00 EDT, Height/Length Dosing, [...] day(s), # 21 tab(s), Refills(s) 0, Pharmacy: [facility] #[id number], 167, cm, 03/20/23 11:45:00 EDT, Height/Length Dosing, [...] elías, Rectal, TID, 10 gram, Refill(s) 0, [facility] #[id number], 167, cm, 03/20/23 11:45:00 EDT, Height/Length Dosing, [...] Medications acetaminophen-hydrocod one (more content not included)... [facility] Comment on above: Result Comment: Elec tronically Signed By: Yohan PIPER, Anoop Gómez.vic\Date and Time Signed: 03/20/23 12:22 EDT Consultation Noteon 03-09-20 Consultation Note [id number]#1.0 0CD:127 [facility] XR chest 2V*on 03-02-2023 XR chest 2V* [facility] [place] [address] [place] [address] XRay Report Signed Patient: Tea Rahman MR#: [id number] : 1945 Acct:[id number] Age/Sex: 77 / F ADM Date: 03/02/23 Loc: ICXD Room: Type: [facility] Attending Dr: Rashard Epstein MD Copies to: [...] Zen Yo M.D.03/02/2023 4:11 PM Dictation Location: [place] [address] Transcribed By: [facility] 03/02/23 1611 Dictated By: Zen Yo DO 03/02/23 1610 Signed By: 03/02/23 1611 Normal [facility] Consultation Noteon 02-07-20 Consultation Note [id number]#1.0 0CD:127 Normal [facility] Amorphous urine sedimentOrde red By: Rashard Epstein on 01-24-2023 Amorphous sediment LM Ql (Urine sed) See comment Negative [facility] Comment on above: Unable to obtain acc urate result due to color interference. Automated epithelial cells c ount in urine sediment (number/area)Ordered By: Rashard Epstein on 01-24-2023 Epithelial cells Auto (Urine sed) [#/Area] 5-9 [HPF] 0-2 [facility] Automated erythrocytes count in urine sediment (number/area)Ordered By: Rashard Epstein on 01-24-2023 RBC Auto (Urine sed) [#/Area] None seen [HPF] 0-4 [facility] Automated leukocytes count i n urine sediment (number/area)Ordered By: Rashard Epstein on 01-24-2023 WBC Auto (Urine sed) [#/Area] 5-9 [HPF] 0-4 [facility] Automated urine specific gra vity by refractometryOrdered By: Rashard Epstein on 01-24-2023 Specific gravity Refractometry automated (U) [Rel density] 1.015 1.001-1.030 [facility] Basophils Auto (Bld) [#/Vol] Ordered By: Rashard Epstein on 01-24-2023 Basophils (Bld) [#/Vol] 0.0 10*3/uL 0.0-0.2 [facility] Basophils/100 WBC Auto (Bld) Ordered By: Rashard Epstein on 01-24-2023 Basophils/100 WBC (Bld) 0.5 % . [facility] Bilirubin Auto test strip Ql (U)Ordered By: Rashard Epstein on 01-24-2023 Bilirubin Ql (U) See comment Negative [facility] Comment on above: Unable to obtain acc urate result due to color interference. C reactive protein [Mass/vol ume] in Serum or PlasmaOrdered By: Rashard Epstein on 01-24-2023 CRP [Mass/Vol] 0.6 mg/dL 0.0-0.5 [facility] C-Reactive Proteinon 023 C-Reactive Protein 0.6 mg/dL High 0.0-0.5 [facility] Comment on above: Result Comment: PERF ORMED BY: [place] [address] PATHOLOGIST HOGSHEAD BUILDER KEYON SERNA M.D. Performed By: #### C BC, ADDONUAPLUS, ESR, CUU, CRP, CREAT #### [address] #### C4, C3 #### [facility] , Complement C3on 01-24-2023 Complement C3 162 mg/dL Normal 82-167 [facility] Comment on above: Result Comment: Perf ormed at: - [facility] [place] [id number] Cyber Security Engineer: Paul Dumont PhD, Phone: [phone] Performed By: #### C BC, ADDONUAPLUS, ESR, CUU, CRP, CREAT #### [address] #### C4, C3 #### [facility] , Complement C4on 01-24-2023 Complement C4 36 mg/dL Normal 12-38 [facility] Comment on above: Result Comment: PERF ORMED BY: [place] [address] PATHOLOGIST HOGSHEAD BUILDER KEYON SERNA M.D. Performed By: #### C BC, ADDONUAPLUS, ESR, CUU, CRP, CREAT #### [address] #### C4, C3 #### [facility] , Complete Blood Count Auto Di ffon 01-24-2023 Basophils (Bld) [#/Vol] 0.0 10*3/uL Normal 0.0-0.2 [facility] Comment on above: Performed By: #### C BC, ADDONUAPLUS, ESR, CUU, CRP, CREAT #### [place] [address] [place] #### C4, C3 #### [facility] , Basophils/100 WBC (Bld) 0.5 % Normal . [facility] Comment on above: Performed By: #### C BC, ADDONUAPLUS, ESR, CUU, CRP, CREAT #### [address] #### C4, C3 #### [facility] , Eosinophils (Bld) [#/Vol] 0.2 10*3/uL Normal 0.0-0.45 [facility] Comment on above: Performed By: #### C BC, ADDONUAPLUS, ESR, CUU, CRP, CREAT #### [place] [address] [place] #### C4, C3 #### [facility] , Eosinophils/100 WBC (Bld) 3.3 % Normal . [facility] Comment on above: Performed By: #### C BC, ADDONUAPLUS, ESR, CUU, CRP, CREAT #### [place] [address] [place] #### C4, C3 #### [facility] , Erythrocyte distribution width (RBC) [Ratio] 14.2 % Normal 11.9-15.3 [facility] Comment on above: Performed By: #### C BC, ADDONUAPLUS, ESR, CUU, CRP, CREAT #### [place] [address] [place] #### C4, C3 #### [facility] , Hematocrit (Bld) [Volume fraction] 40.7 % Normal 34.0-46.4 [facility] Comment on above: Performed By: #### C BC, ADDONUAPLUS, ESR, CUU, CRP, CREAT #### [place] [address] [place] #### C4, C3 #### [facility] , Hemoglobin (Bld) [Mass/Vol] 13.2 g/dL Normal 11.8-15.4 [facility] Comment on above: Performed By: #### C BC, ADDONUAPLUS, ESR, CUU, CRP, CREAT #### [place] [address] [place] #### C4, C3 #### [facility] , Lymphocytes (Bld) [#/Vol] 1.9 10*3/uL Normal 1.00-4.8 [facility] Comment on above: Performed By: #### C BC, ADDONUAPLUS, ESR, CUU, CRP, CREAT #### [address] #### C4, C3 #### [facility] , Lymphocytes/100 WBC (Bld) 30.8 % Normal . [facility] Comment on above: Performed By: #### C BC, ADDONUAPLUS, ESR, CUU, CRP, CREAT #### [place] [address] [place] #### C4, C3 #### [facility] , MCH (RBC) [Entitic mass] 29.5 pg Normal 24.7-34.3 [facility] Comment on above: Performed By: #### C BC, ADDONUAPLUS, ESR, CUU, CRP, CREAT #### [place] [address] [place] #### C4, C3 #### [facility] , MCV (RBC) [Entitic vol] 90.9 fL Normal 80-100 [facility] Comment on above: Performed By: #### C BC, ADDONUAPLUS, ESR, CUU, CRP, CREAT #### [place] [address] [place] #### C4, C3 #### [facility] , Mean Corpuscular HGB Conc 32.5 g/dL Normal 32.0-35.0 [facility] Comment on above: Performed By: #### C BC, ADDONUAPLUS, ESR, CUU, CRP, CREAT #### [place] [address] [place] #### C4, C3 #### [facility] , Monocytes (Bld) [#/Vol] 0.4 10*3/uL Normal 0.0-0.8 [facility] Comment on above: Performed By: #### C BC, ADDONUAPLUS, ESR, CUU, CRP, CREAT #### [place] [address] [place] #### C4, C3 #### [facility] , Monocytes/100 WBC (Bld) 7.1 % Normal . [facility] Comment on above: Performed By: #### C BC, ADDONUAPLUS, ESR, CUU, CRP, CREAT #### [place] [address] [place] #### C4, C3 #### [facility] , Neutrophils (Bld) [#/Vol] 3.7 10*3/uL Normal 1.8-7.7 [facility] Comment on above: Performed By: #### C BC, ADDONUAPLUS, ESR, CUU, CRP, CREAT #### [place] [address] [place] #### C4, C3 #### [facility] , Neutrophils/100 WBC (Bld) 58.3 % Normal . [facility] Comment on above: Performed By: #### C BC, ADDONUAPLUS, ESR, CUU, CRP, CREAT #### [place] [address] [place] #### C4, C3 #### [facility] , NRBC% 0.1 /100{WBC} Normal 0-0.5 [facility] Comment on above: Performed By: #### C BC, ADDONUAPLUS, ESR, CUU, CRP, CREAT #### [address] #### C4, C3 #### [facility] , Platelet mean volume (Bld) [Entitic vol] 7.3 fL Normal 6.3-10.7 [facility] Comment on above: Performed By: #### C BC, ADDONUAPLUS, ESR, CUU, CRP, CREAT #### [address] #### C4, C3 #### [facility] , Platelets (Bld) [#/Vol] 239 10*3/uL Normal 150-450 [facility] Comment on above: Performed By: #### C BC, ADDONUAPLUS, ESR, CUU, CRP, CREAT #### [address] #### C4, C3 #### [facility] , RBC (Bld) [#/Vol] 4.48 10*6/uL Normal 3.60-5.00 [facility] Comment on above: Performed By: #### C BC, ADDONUAPLUS, ESR, CUU, CRP, CREAT #### [place] [address] [place] #### C4, C3 #### [facility] , WBC (Bld) [#/Vol] 6.3 10*3/uL Normal 3.8-11.6 [facility] Comment on above: Performed By: #### C BC, ADDONUAPLUS, ESR, CUU, CRP, CREAT #### [place] [address] [place] #### C4, C3 #### [facility] , Creatinineon 01-24-2023 Creatinine [Mass/Vol] 0.96 mg/dL Normal 0.60-1.20 [facility] Comment on above: Performed By: #### C BC, ADDONUAPLUS, ESR, CUU, CRP, CREAT #### [place] [address] [place] #### C4, C3 #### [facility] , GFR/1.73 sq M.predicted MDRD (S/P/Bld) [Vol rate/Area] mL/min/{1.73_m2} Normal [facility] Comment on above: Performed By: #### C BC, ADDONUAPLUS, ESR, CUU, CRP, CREAT #### [address] #### C4, C3 #### [facility] , Creatinine [Mass/volume] in Serum or PlasmaOrdered By: Rashard Epstein on 01-24-2023 Creatinine [Mass/Vol] 0.96 mg/dL 0.60-1.20 [facility] Dipstick and Microscopicon 0 01-24-2023 Appearance (U) Slightly Cloudy Critically abnormal Clear [facility] Comment on above: Order Comment: Name Collection Type:: Clean-Voided Midstream Performed By: #### C BC, ADDONUAPLUS, ESR, CUU, CRP, CREAT #### [address] #### C4, C3 #### [facility] , Bacteria,Urine 1+ High None Seen [facility] Comment on above: Order Comment: Name Collection Type:: Clean-Voided Midstream Performed By: #### C BC, ADDONUAPLUS, ESR, CUU, CRP, CREAT #### [facility] [address] [place] [address] [place] #### C4, C3 #### [facility] , Bilirubin,Urine Normal Negative [facility] Comment on above: Order Comment: Name Collection Type:: Clean-Voided Midstream Result Comment: Unab le to obtain accurate result due to color interference. Performed By: #### C BC, ADDONUAPLUS, ESR, CUU, CRP, CREAT #### [place] [address] [place] #### C4, C3 #### [facility] , Color (U) [place] Critically abnormal Yellow [facility] Comment on above: Order Comment: Name Collection Type:: Clean-Voided Midstream Performed By: #### C BC, ADDONUAPLUS, ESR, CUU, CRP, CREAT #### [address] #### C4, C3 #### [facility] , Glucose Ql (U) Normal Normal [facility] Comment on above: Order Comment: Name Collection Type:: Clean-Voided Midstream Result Comment: Unab le to obtain accurate result due to color interference. Performed By: #### C BC, ADDONUAPLUS, ESR, CUU, CRP, CREAT #### [place] [address] [place] #### C4, C3 #### [facility] , Ketones Ql (U) Normal Negative [facility] Comment on above: Order Comment: Name Collection Type:: Clean-Voided Midstream Result Comment: Unab le to obtain accurate result due to color interference. Performed By: #### C BC, ADDONUAPLUS, ESR, CUU, CRP, CREAT #### [place] [address] [place] #### C4, C3 #### [facility] , Leukocyte esterase Test strip Ql (U) Normal Negative [facility] Comment on above: Order Comment: Name Collection Type:: Clean-Voided Midstream Result Comment: Unab le to obtain accurate result due to color interference. Performed By: #### C BC, ADDONUAPLUS, ESR, CUU, CRP, CREAT #### [place] [address] [place] #### C4, C3 #### [facility] , Nitrite,Urine Normal Negative [facility] Comment on above: Order Comment: Name Collection Type:: Clean-Voided Midstream Result Comment: Unab le to obtain accurate result due to color interference. Performed By: #### C BC, ADDONUAPLUS, ESR, CUU, CRP, CREAT #### [address] #### C4, C3 #### [facility] , Occult Blood,Urine Normal Negative [facility] Comment on above: Order Comment: Name Collection Type:: Clean-Voided Midstream Result Comment: Unab le to obtain accurate result due to color interference. Performed By: #### C BC, ADDONUAPLUS, ESR, CUU, CRP, CREAT #### [address] #### C4, C3 #### [facility] , pH,Urine Normal 5.0-9.0 [facility] Comment on above: Order Comment: Name Collection Type:: Clean-Voided Midstream Result Comment: Unab le to obtain accurate result due to color interference. Performed By: #### C BC, ADDONUAPLUS, ESR, CUU, CRP, CREAT #### [address] #### C4, C3 #### [facility] , Protein,Urine Normal Negative [facility] Comment on above: Order Comment: Name Collection Type:: Clean-Voided Midstream Result Comment: Unab le to obtain accurate result due to color interference. Performed By: #### C BC, ADDONUAPLUS, ESR, CUU, CRP, CREAT #### [address] #### C4, C3 #### [facility] , RBC,Urine None Seen Normal 0-4 [facility] Comment on above: Order Comment: Name Collection Type:: Clean-Voided Midstream Performed By: #### C BC, ADDONUAPLUS, ESR, CUU, CRP, CREAT #### [address] #### C4, C3 #### [facility] , Specificy [place],Urine 1.015 Normal 1.001-1.030 [facility] Comment on above: Order Comment: Name Collection Type:: Clean-Voided Midstream Performed By: #### C BC, ADDONUAPLUS, ESR, CUU, CRP, CREAT #### [address] #### C4, C3 #### [facility] , Squamous Epithelial Cell,Urine 5-9 High 0-2 [facility] Comment on above: Order Comment: Name Collection Type:: Clean-Voided Midstream Performed By: #### C BC, ADDONUAPLUS, ESR, CUU, CRP, CREAT #### [address] #### C4, C3 #### [facility] , Urobilinogen,Urine Normal Normal [facility] Comment on above: Order Comment: Name Collection Type:: Clean-Voided Midstream Result Comment: Unab le to obtain accurate result due to color interference. Performed By: #### C BC, ADDONUAPLUS, ESR, CUU, CRP, CREAT #### [address] #### C4, C3 #### [facility] , WBC,Urine 5-9 High 0-4 [facility] Comment on above: Order Comment: Name Collection Type:: Clean-Voided Midstream Performed By: #### C BC, ADDONUAPLUS, ESR, CUU, CRP, CREAT #### [address] #### C4, C3 #### [facility] , Yeast,Urine 3+ Critically abnormal None Seen [facility] Comment on above: Order Comment: Name Collection Type:: Clean-Voided Midstream Result Comment: PERF ORMED BY: [place] [address] PATHOLOGIST HOGSHEAD BUILDER KEYON SERNA M.D. Performed By: #### C BC, ADDONUAPLUS, ESR, CUU, CRP, CREAT #### [place] [address] [place] #### C4, C3 #### [facility] , Eosinophils Auto (Bld) [#/Vo l]Ordered By: Rashard Epstein on 01-24-2023 Eosinophils (Bld) [#/Vol] 0.2 10*3/uL 0.0-0.45 [facility] Eosinophils/100 WBC Auto (Bl d)Ordered By: Rashard Epstein on 01-24-2023 Eosinophils/100 WBC (Bld) 3.3 % . [facility] Erythrocyte Sedimentation Ra duyen 01-24-2023 ESR (Bld) [Velocity] 38 mm/h High 0-29 [facility] Comment on above: Result Comment: PERF ORMED BY: [place] [address] PATHOLOGIST HOGSHEAD BUILDER KEYON SERNA M.D. Performed By: #### C BC, ADDONUAPLUS, ESR, CUU, CRP, CREAT #### [address] #### C4, C3 #### [facility] , Erythrocyte distribution wid th Auto (RBC) [Ratio]Ordered By: Rashard Epstein on 01-24-2023 Erythrocyte distribution width (RBC) [Ratio] 14.2 % 11.9-15.3 [facility] Erythrocyte sedimentation ra te by Photometric methodOrdered By: Rashard Epstein on 01-24-2023 ESR Photometric method (Bld) [Velocity] 38 mm/hr 0-29 [facility] Hematocrit Auto (Bld) [Volum e fraction]Ordered By: Rashard Epstein on 01-24-2023 Hematocrit (Bld) [Volume fraction] 40.7 % 34.0-46.4 [facility] Hemoglobin [Mass/volume] in BloodOrdered By: Rashard Epstein on 01-24-2023 Hemoglobin (Bld) [Mass/Vol] 13.2 g/dL 11.8-15.4 [facility] Ketones Test strip (U) [Mass /Vol]Ordered By: Rashard Epstein on 01-24-2023 Ketones (U) [Mass/Vol] See comment Negative [facility] Comment on above: Unable to obtain acc urate result due to color interference. Leukocytes [#/volume] correc edwige for nucleated erythrocytes in Blood by Automated counOrdered By: Rashard Epstein on 01-24-2023 WBC corrected for nucl RBC Auto (Bld) [#/Vol] 6.3 10*3/uL 3.8-11.6 [facility] Lymphocytes Auto (Bld) [#/Vo l]Ordered By: Rashard Epstein on 01-24-2023 Lymphocytes (Bld) [#/Vol] 1.9 10*3/uL 1.00-4.8 [facility] Lymphocytes/100 WBC Auto (Bl d)Ordered By: Rashard Epstein on 01-24-2023 Lymphocytes/100 WBC (Bld) 30.8 % . [facility] MCH Auto (RBC) [Entitic mass ]Ordered By: Rashard Epstein on 01-24-2023 MCH (RBC) [Entitic mass] 29.5 pg 24.7-34.3 [facility] MCHC Auto (RBC) [Mass/Vol]Or dered By: Rashard Epstein on 01-24-2023 MCHC (RBC) [Mass/Vol] 32.5 g/dL 32.0-35.0 [facility] MCV Auto (RBC) [Entitic vol] Ordered By: Rashard Epstein on 01-24-2023 MCV (RBC) [Entitic vol] 90.9 fL 80-100 [facility] Monocytes Auto (Bld) [#/Vol] Ordered By: Rashard Epstein on 01-24-2023 Monocytes (Bld) [#/Vol] 0.4 10*3/uL 0.0-0.8 [facility] Monocytes/100 WBC Auto (Bld) Ordered By: Rashard Epstein on 01-24-2023 Monocytes/100 WBC (Bld) 7.1 % . [facility] Neutrophils Auto (Bld) [#/Vo l]Ordered By: Rashard Epstein on 01-24-2023 Neutrophils (Bld) [#/Vol] 3.7 10*3/uL 1.8-7.7 [facility] Neutrophils/100 WBC Auto (Bl d)Ordered By: Rashard Epstein on 01-24-2023 Neutrophils/100 WBC (Bld) 58.3 % . [facility] No Panel InformationOrdered By: Rashard Epstein on 01-24-2023 Estimated GFR (CKD-EPI) > 60.0 mL/Min [facility] Creatinine Clearance (Chem N/A [facility] Nucleated erythrocytes [Pres ence] in Blood by Automated countOrdered By: Rashard Epstein on 01-24-2023 Nucleated RBC Auto Ql (Bld) 0.1 /100{WBC} 0-0.5 [facility] Platelet mean volume Auto (B ld) [Entitic vol]Ordered By: Rashard Epstein on 01-24-2023 Platelet mean volume (Bld) [Entitic vol] 7.3 fL 6.3-10.7 [facility] Platelets Auto (Bld) [#/Vol] Ordered By: Rashard Epstein on 01-24-2023 Platelets (Bld) [#/Vol] 239 10*3/uL 150-450 [facility] Protein Auto test strip (U) [Mass/Vol]Ordered By: Rashard Epstein on 01-24-2023 Protein (U) [Mass/Vol] See comment Negative [facility] Comment on above: Unable to obtain acc urate result due to color interference. RBC Auto (Bld) [#/Vol]Ordere d By: Rashard Epstein on 01-24-2023 RBC (Bld) [#/Vol] 4.48 10*6/uL 3.60-5.00 [facility] Serum or plasma complement C 3 measurement (mass/volume)Ordered By: Rashard Epstein on 01-24-2023 Complement C3 [Mass/Vol] 162 mg/dL 82-167 [facility] Comment on above: Performed at: [facility] [place], [place] [id number] Director: Paul Dumont PhD, Phone: [phone] Serum or plasma complement C 4 measurement (mass/volume)Ordered By: Rashard Epstein on 01-24-2023 Complement C4 [Mass/Vol] 36 mg/dL 12-38 [facility] Urine Cultureon 01-24-2023 Bacteria identified Cx Nom (U) ORGANISM: Ghazal glabrata (O:CANGLA) [place] Count 20,000 PERFORMED BY: [place] [address] PATHOLOGIST HOGSHEAD BUILDER KEYON SERNA M.D. [facility] Comment on above: Performed By: #### C BC, ADDONUAPLUS, ESR, CUU, CRP, CREAT #### [place] [address] [place] #### C4, C3 #### [facility] , Urine appearanceOrdered By: Rashard Epstein on 01-24-2023 Appearance (U) Slightly cloudy Clear [facility] Urine bacteria detection by automated methodOrdered By: Rashard Epstein on 01-24-2023 Bacteria Auto Ql (U) 1+ None Seen [facility] Urine colorOrdered By: Arthur Epstein on 01-24-2023 Color (U) Union Yellow [facility] Urine culture routineOrdered By: Rashard Epstein on 01-24-2023 Bacteria identified Cx Nom (U) Ghazal glabrata [facility] Urine glucose measurement by automated test strip (mass/volume)Ordered By: Rashard Epstein on 01-24-2023 Glucose Auto test strip (U) [Mass/Vol] See comment Normal [facility] Comment on above: Unable to obtain acc urate result due to color interference. Urine leukocyte esterase det ection by automated test stripOrdered By: Rashard Epstein on 01-24-2023 Leukocyte esterase Auto test strip Ql (U) See comment Negative [facility] Comment on above: Unable to obtain acc urate result due to color interference. Urine nitrite detection by a utomated test stripOrdered By: Rashard Epstein on 01-24-2023 Nitrite Auto test strip Ql (U) See comment Negative [facility] Comment on above: Unable to obtain acc urate result due to color interference. Urobilinogen Test strip (U) [Mass/Vol]Ordered By: Rashard Epstein on 01-24-2023 Urobilinogen (U) [Mass/Vol] See comment Normal [facility] Comment on above: Unable to obtain acc urate result due to color interference. WBC Auto (Bld) [#/Vol]Ordere d By: Rashard Epstein on 01-24-2023 WBC (Bld) [#/Vol] 6.3 10*3/uL 3.8-11.6 [facility] Yeast detection in urine sed iment by light microscopyOrdered By: Rashard Epstein on 01-24-2023 Yeast LM Ql (Urine sed) 3+ [HPF] None Seen [facility] pH Auto test strip (U)Ordere d By: Rashard Epstein on 01-24-2023 pH (U) See comment 5.0-9.0 [facility] Comment on above: Unable to obtain [...] with bladders stones, [place] History of Present Illness Tea Rahman is a 77-year-old female here to establish care as a prior patient of Dr. Santana. She is accompanied by her today. 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 Mrs. Rahman has a history of bladder stones and is followed by a urologist in [place]. She had a scope completed 10/21/2022 and, per patient, they stopped counting stones. She had also been followed by a urologist in [place]. When he moved his practice to [place], [place], she followed him for care. Due [...] with lupus, she was referred to a manager of customer billing in [place]. She tried a different manager of customer billing in [place] where she stayed until that provider retired. [...] Mrs. Rahman takes Xanax for anxiety and White Stone for joint pain as sparingly as possible. Over the past few years, she has been taking a half a Xanax and a half a White Stone every morning as well as at night. [...] fibromyalgia syndrome (M79.7: Fibromyalgia) Patient is on White Stone for this. Again, discussed laws and regulations with this medication. She will comply. Will follow as needed. 5. Essential hypertension (I10: Essential (primary) hypertension) Patient is at goal at this time. Continue to monitor. 6. Long-term current use of opiate analgesic drug (Z79.891: intermediate card tender (current) use of opiate analgesic) We will continue to monitor use of White Stone. 7. Bladder stone (N21.0: Calculus in bladder) Will refer to urology for second opinion. Will see the patient back in 2 months and we will readjust the patient's medication as needed. Documentation services were performed after patient or guardian consented to allow Reina Trevor Anthony to record this visit. DARVIN imcu specialist and provider reviewed before signing. DARVIN: [...] anxiety and depressive (more content not included)... Normal [facility] Comment on above: Result Comment: Elec tronically Signed By: Anoop Almanzar MD\.br\Date and Time Signed: 12/22/22 14:14 EDT\.br\Electronically Co-Signed By: India Aguilar.br\Date and Time Co-Signed: 12/21/22 17:26 EDT Physician Referralon 023 Physician Referral [id number]. 00CD:127 Normal [facility] Lab Reportson 05-03-2023 Lab Reports [id number] 0CD:127 Normal [facility] Medication Consenton 023 Medication Consent [id number] 0CD:127 Normal [facility] Ambulatory Visit Summaryon 0 12-20-2022 Ambulatory Visit [...] Follow-Up Appointments Monday 1:00 PM EDT With: Anoop Almanzar MD Where: [facility] Lab Reportson 12-14-2022 Lab Reports [id number] CD:127 Normal [facility] Consultation Noteon 11-23-19 Consultation Note [id number] 0CD:127 Normal [facility] Consultation Noteon 11-09-19 Consultation Note [id number] CD:127 Normal [facility] Operative Reporton Operative Report [id number]#1.0 0CD:127 [facility] Formson 11-03-2022 Forms [id number] 0CD:127 Normal [facility] Family Medicine Office/Clini c Noteon 11-02-2022 Family Medicine Office/Clinic Note Chief Complaint discuss recent medical issues HPI Staff Tea is a 77 year old female who presents [facility]. She is a current pt of Dr. Santana however new to [facility]. Tea has a hx of HTN and [...] something in the lung[place] and referred to account services coordinator but has not heard from the office [...] day(s), # 28 cap(s), Refills(s) 0, Pharmacy: [id number], 167.4, cm, 11/02/22 15:26:00 EDT, Height/Length Dosing, [...] of fall (more content not included)... Normal [facility] Comment on above: Result Comment: Elec tronically Signed By: MAX PIPER, ASHUTOSH Esparza\.br\Date and Time Signed: 11/02/22 16:14 EDT Stone Analysison 10-25-2022 Calculi description See Note Normal [facility] Comment on above: Result Comment: (NOT E) Specimen consists of numerous brown calculi. The total weight is 684 mg. Performed By: #### A STONE #### [facility] [address] [place], [place] [id number] Cyber Security Engineer: Jamel Valentine MD Composition See Note Normal [facility] Comment on above: Result Comment: (NOT E) [...] composition determined by FTIR analysis. Performed By: [facility] [address] [place] [address] Clerical Warehouseman: Reggie Lawrence MD, PhD Performed By: #### A STONE #### [address] [id number] Cyber Security Engineer: Jamel Valentine MD [place] 684 mg [facility] Comment on above: Performed By: #### A STONE #### [address] [address] Cyber Security Engineer: Jamel Valentine MD CULTURE URINEon 09-20-2022 CULTURE URINE Culture Observations : NO GROWTH. Normal [facility] Comment on above: Performed By: #### U RCX #### [facility] [address] [place] [address] Dr. Gigi Guzman FREE T3on 09-20-2022 FREE T3 1.79 pg/mlL Critically low 2.18-3.98 [facility] Comment on above: Performed By: #### F T3, TSH #### [facility] [address] [place] [address] Dr. Gigi Guzman FREE T4on 09-20-2022 Free T4 [Mass/Vol] 0.97 ng/dL Normal 0.76-1.46 [facility] Comment on above: Performed By: #### F T4 #### [facility] [address] [place] [address] Dr. Gigi Guzman TSHon 09-20-2022 TSH 2.154 uIU/mL Normal 0.358-3.740 [facility] Comment on above: Performed By: #### F T3, TSH #### [facility] [address] [place], [place] [address] Dr. Gigi Guzman CULTURE URINEon 08-17-2022 CULTURE URINE Culture Observations : LIGHT GROWTH OF MIXED GENITAL [place]. NO POTENTIAL PATHOGENS SEEN. Normal [facility] Comment on above: Performed By: #### U RCX #### [facility] [address] [place], [place] [address] Dr. Gigi Guzman Automated erythrocytes count in urine sediment (number/area)Ordered By: Rashard Epstein on 05-17-2022 RBC Auto (Urine sed) [#/Area] 3-4 [HPF] 0-4 [facility] Automated leukocytes count i n urine sediment (number/area)Ordered By: Rashard Epstein on 05-17-2022 WBC Auto (Urine sed) [#/Area] 10-19 [HPF] 0-4 [facility] Automated urine hyaline cast s count (number/volume)Ordered By: Rashard Epstein on 05-17-2022 Hyaline casts Auto (U) [#/Vol] None seen [LPF] 0-1 [facility] Comment on above: --- 05/17/221731 -- -Ur Hyaline Manager Heart Failure previously reported as: None Seen /LPF Basophils Auto (Bld) [#/Vol] Ordered By: Rashard Epstein on 05-17-2022 Basophils (Bld) [#/Vol] 0.1 10*3/uL 0.0-0.2 [facility] Basophils/100 WBC Auto (Bld) Ordered By: Rashard Epstein on 05-17-2022 Basophils/100 WBC (Bld) 0.9 % . [facility] Bilirubin Test strip Ql (U)O rdered By: Rashard Epstein on 05-17-2022 Bilirubin Ql (U) Negative Negative [facility] Blood hemoglobin measurement (mass/volume)Ordered By: Rashard Epstein on 05-17-2022 Hemoglobin (Bld) [Mass/Vol] 13.3 g/dL 11.8-15.4 [facility] Blood leukocytes automated c ount (number/volume)Ordered By: Rashard Epstein on 05-17-2022 WBC (Bld) [#/Vol] 5.5 10*3/uL 4.5-11.0 [facility] C reactive protein [Mass/vol ume] in Serum or PlasmaOrdered By: Rashard Epstein on 05-17-2022 CRP [Mass/Vol] 0.9 mg/dL 0.0-1.0 [facility] Casts typing in urine sedime nt by light microscopyOrdered By: Rashard Epstein on 05-17-2022 Casts LM Nom (Urine sed) None seen [LPF] None Seen [facility] Comment on above: --- 05/17/221731 -- -Ur Other Manager Heart Failure previously reported as: None Seen /LPF Color Auto (U)Ordered By: Alta Epstein on 05-17-2022 Color (U) Yellow Yellow [facility] Creatinine and Glomerular fi ltration rate.predicted panel (S/P/Bld)Ordered By: Rashard Epstein on 05-17-2022 Creatinine [Mass/Vol] 0.84 mg/dL 0.44-1.03 [facility] Eosinophils Auto (Bld) [#/Vo l]Ordered By: Rashard Epstein on 05-17-2022 Eosinophils (Bld) [#/Vol] 0.3 10*3/uL 0.0-0.45 [facility] Eosinophils/100 WBC Auto (Bl d)Ordered By: Rashard Epstein on 05-17-2022 Eosinophils/100 WBC (Bld) 4.7 % . [facility] Erythrocyte distribution wid th Auto (RBC) [Ratio]Ordered By: Rashard Epstein on 05-17-2022 Erythrocyte distribution width (RBC) [Ratio] 14.7 % 11.9-15.3 [facility] Erythrocyte sedimentation ra te by Photometric methodOrdered By: Rashard Epstein on 05-17-2022 ESR Photometric method (Bld) [Velocity] 47 mm/hr 0-29 [facility] Estimated glomerular filtrat ion rate (GFR) non- AmericanOrdered By: Rashard Epstein on 05-17-2022 GFR/1.73 sq M.predicted among non-blacks MDRD (S/P/Bld) [Vol rate/Area] > 60 mL/Min [facility] Hematocrit Auto (Bld) [Volum e fraction]Ordered By: Rashard Epstein on 05-17-2022 Hematocrit (Bld) [Volume fraction] 40.6 % 34.0-46.4 [facility] Ketones Auto test strip (U) [Mass/Vol]Ordered By: Rashard Epstein on 05-17-2022 Ketones (U) [Mass/Vol] Negative Negative [facility] - Hematology and Cell countsOrdered By: Rashard Epstein on 05-17-2022 Nucleated RBC/100 WBC (Bld) [Ratio] 0.1 % 0-0.5 [facility] Lymphocytes Auto (Bld) [#/Vo l]Ordered By: Rashard Epstein on 05-17-2022 Lymphocytes (Bld) [#/Vol] 1.6 10*3/uL 1.00-4.8 [facility] Lymphocytes/100 WBC Auto (Bl d)Ordered By: Rashard Epstein on 05-17-2022 Lymphocytes/100 WBC (Bld) 29.3 % . [facility] MCH Auto (RBC) [Entitic mass ]Ordered By: Rashard Epstein on 05-17-2022 MCH (RBC) [Entitic mass] 30.3 pg 24.7-34.3 [facility] MCHC Auto (RBC) [Mass/Vol]Or dered By: Rashard Epstein on 05-17-2022 MCHC (RBC) [Mass/Vol] 32.6 g/dL 32.0-35.0 [facility] MCV Auto (RBC) [Entitic vol] Ordered By: Rashard Epstein on 05-17-2022 MCV (RBC) [Entitic vol] 93.0 fL 80-100 [facility] Monocytes Auto (Bld) [#/Vol] Ordered By: Rashard Epstein on 05-17-2022 Monocytes (Bld) [#/Vol] 0.5 10*3/uL 0.0-0.8 [facility] Monocytes/100 WBC Auto (Bld) Ordered By: Rashard Epstein on 05-17-2022 Monocytes/100 WBC (Bld) 8.6 % . [facility] Neutrophils Auto (Bld) [#/Vo l]Ordered By: Rashard Epstein on 05-17-2022 Neutrophils (Bld) [#/Vol] 3.1 10*3/uL 1.8-7.7 [facility] Neutrophils/100 WBC Auto (Bl d)Ordered By: Rashard Epstein on 05-17-2022 Neutrophils/100 WBC (Bld) 56.5 % . [facility] Nitrite Test strip Ql (U)Ord ered By: Rashard Epstein on 05-17-2022 Nitrite Ql (U) Negative Negative [facility] No Panel InformationOrdered By: Rashard Epstein on 05-17-2022 Estimated GFR () > 60 mL/Min [facility] Comment on above: GFR estimated refere nce range: According to KDOQI guidelines, <60 ml/min/1.73m2 is sufficient to diagnose a patient with chronic kidney disease. Pharmacy Creatinine Clearance (Chem N/A [facility] Platelet mean volume Auto (B ld) [Entitic vol]Ordered By: Rashard Epstein on 05-17-2022 Platelet mean volume (Bld) [Entitic vol] 7.0 fL 6.3-10.7 [facility] Platelets Auto (Bld) [#/Vol] Ordered By: Rashard Epstein on 05-17-2022 Platelets (Bld) [#/Vol] 278 10*3/uL 150-450 [facility] Protein Auto test strip (U) [Mass/Vol]Ordered By: Rashard Epstein on 05-17-2022 Protein (U) [Mass/Vol] Negative Negative [facility] RBC Auto (Bld) [#/Vol]Ordere d By: Rashard Epstein on 05-17-2022 RBC (Bld) [#/Vol] 4.37 10*6/uL 3.60-5.00 [facility] Specific gravity Auto test s trip (U) [Rel density]Ordered By: Rashard Epstein on 05-17-2022 Specific gravity (U) [Rel density] 1.009 1.001-1.030 [facility] Squamous epithelial cells de tection in urine sediment by light microscopyOrdered By: Rashard Epstein on 05-17-2022 Epithelial cells.squamous LM Ql (Urine sed) 5-9 [HPF] 0-2 [facility] Urine bacteria detection by automated methodOrdered By: Rashard Epstein on 05-17-2022 Bacteria Auto Ql (U) None seen None Seen [facility] Urine clarity by refractomet ry automatedOrdered By: Rashard Epstein on 05-17-2022 Clarity Refractometry automated (U) Clear Clear [facility] Urine glucose measurement by automated test strip (mass/volume)Ordered By: Rashard Epstein on 05-17-2022 Glucose Auto test strip (U) [Mass/Vol] Normal mg/dL Normal [facility] Urine hemoglobin detection b y automated test stripOrdered By: Rashard Epstein on 05-17-2022 Hemoglobin Auto test strip Ql (U) Negative Negative [facility] Urine leukocyte esterase det ection by automated test stripOrdered By: Rashard Epstein on 05-17-2022 Leukocyte esterase Auto test strip Ql (U) 2+ Negative [facility] Urobilinogen Auto test strip (U) [Mass/Vol]Ordered By: Rashard Epstein on 05-17-2022 Urobilinogen (U) [Mass/Vol] Normal mg/dL Normal [facility] pH Auto test strip (U)Ordere d By: Rashard Epstein on 05-17-2022 pH (U) 5.5 [pH] 5.0-9.0 [facility] CULTURE URINEon 03-17-2022 CULTURE URINE Isolate 1 [...] F Trimethoprim/Sulfameth oxazole <=20 S F Normal [facility] Comment on above: Performed By: #### U RCX #### [facility] [address] [place] [address] [address] Gigi Guzman UA (CLEAN/CATCH) GLASS FINISHER/MICRO I F IND.on 03-14-2022 Bilirubin Ql (U) Negative Normal NEGATIVE [facility] Comment on above: Performed By: #### U ACSIND, UMICRO #### [facility] [address] [place] [address] [address] Gigi Guzman Clarity (U) CLEAR Normal CLEAR [facility] Comment on above: Performed By: #### U ACSIND, UMICRO #### [facility] [address] [place] [address] [address] Gigi Guzman Color (U) DK. YELLOW Normal YELLOW [facility] Comment on above: Performed By: #### U ACSIND, UMICRO #### [facility] [address] [place] [address] Dr. Gigi Guzman Glucose Ql (U) Negative Normal NEGATIVE [facility] Comment on above: Performed By: #### U ACSIND, UMICRO #### [facility] [address] [place] [address] Dr. Gigi Guzman Hemoglobin Ql (U) Negative Normal NEGATIVE [facility] Comment on above: Performed By: #### U ACSKRYSTLE, UMICRO #### [facility] [facility] [address] [place] [address] Dr. Gigi Guzman Ketones Ql (U) Negative Normal NEGATIVE [facility] Comment on above: Performed By: #### U ACSKRYSTLE, UMICRO #### [facility] [address] [address] [address] Gigi Guzman LEUKOCYTES TRACE Abnormal NEGATIVE [facility] Comment on above: Performed By: #### U ACSIND, UMICRO #### [facility] [address] [address] [address] Gigi Guzman Nitrite Ql (U) Positive Abnormal NEGATIVE [facility] Comment on above: Performed By: #### U ACSIND, UMICRO #### [facility] [address] [place] [address] Dr. Gigi Guzman pH (U) 5.0 [pH] Normal 5-9 [facility] Comment on above: Performed By: #### U ACSIND, UMICRO #### [facility] [address] [address] [address] Gigi Guzman SPEC GRAVITY 1.010 Normal 1.005-<=1.02 5 [facility] Comment on above: Performed By: #### U ACSIND, UMICRO #### [facility] [address] [address] [address] Gigi Guzman UA PROTEIN Negative Normal NEGATIVE/ TRACE [facility] Comment on above: Performed By: #### U ACSIND, UMICRO #### [facility] [address] [address] [address] Gigi Guzman UR MICRO IND INDICATED Normal [facility] Comment on above: Performed By: #### U ACSIND, UMICRO #### [facility] [address] [place] [address] Dr. Gigi Guzman Urobilinogen Qn (U) 0.2 {Maren'U}/dL Normal 0.2 - 1. 0 [facility] Comment on above: Performed By: #### U ACSIND, UMICRO #### [facility] [address] [place] [address] Dr. Gigi Guzman URINE MICROSCOPIC ONLYon BACTERIA SMALL Abnormal NONE SEEN The [facility] Comment on above: Performed By: #### U ACSIND, UMICRO #### [facility] [address] [place] [address] Dr. Gigi Guzman Bacteria identified Cx Nom (U) INDICATED Normal [facility] Comment on above: Performed By: #### U ACSIND, UMICRO #### [facility] [address] [address] [address] Gigi Guzman CAST NONE SEEN Normal NONE SEEN The [facility] Comment on above: Performed By: #### U ACSIND, UMICRO #### [facility] [address] [address] [address] Gigi Guzman Crystals LM Nom (Urine sed) NONE SEEN Normal NONE SEEN The [facility] Comment on above: Performed By: #### U ACSIND, UMICRO #### [facility] [address] [address] [address] Gigi Guzman Epithelial cells LM Ql (Urine sed) FEW Abnormal NONE SEEN /RARE [facility] Comment on above: Performed By: #### U ACSIND, UMICRO #### [facility] [address] [address] [address] Gigi Guzman MUCOUS NONE SEEN Normal NONE SEEN The [facility] Comment on above: Performed By: #### U ACSIND, UMICRO #### [facility] [address] [address] [address] Gigi Guzman RBC 0-2 Normal 0-2 [facility] Comment on above: Performed By: #### U ACSIND, UMICRO #### [facility] [address] [address] [address] Gigi Guzman WBC 10-20 Abnormal NONE SEEN The [facility] Comment on above: Performed By: #### U ACSIND, UMICRO #### [facility] [address] [address] [address] Gigi Guzman CULTURE URINEon 01-25-2022 CULTURE URINE Culture Observations : LIGHT GROWTH OF MIXED GENITAL GARFIELD. NO POTENTIAL PATHOGENS SEEN. Normal [facility] Comment on above: Performed By: #### U RCX #### [facility] [address] [place] [address] Dr. Gigi Guzman Urinalysis - AUTOMATEDon Appearance (U) cloudy [employer] Other Bilirubin Ql (U) Negative [employer] Other Color (U) orange [employer] Other Glucose Ql (U) Negative [employer] Other Hemoglobin Ql (U) Negative [employer] Other Ketones Ql (U) Negative [employer] Other Leukocyte esterase Test strip Ql (U) trace [employer] Other Nitrite Ql (U) Positive [employer] Other pH (U) 5.0 [pH] [employer] Other Protein Ql (U) Negative [employer] Other Specific gravity (U) [Rel density] >1.030 [employer] Other Urobilinogen (U) [Mass/Vol] 0.2 mg/dL [employer] Other Urinalysis - AUTOMATED No [employer] Other Urine Cultureon 12-21-2021 Urine Culture >100,000 [employer] Other ANAon 07-06-2017 KAILEY PATTERN HOMOGENEOUS AND SPECKLED Normal [facility] Comment on above: Performed By: #### 0 0121, [id number] ####[place] [id number] [address] KAILEY SCREEN 1:160 Abnormal <1:40,1:40 [facility] Comment on above: Performed By: #### 0 0121, 86395 ####[place] [id number] ANTI DNAon 07-06-2017 ANTI DNA <1:10 Normal <1:10 [facility] Comment on above: Performed By: #### 0 0121, 20758 ####[facility] ANTI-BETA 2 GLYCOPROTEIN 1on 07-06-2017 ANTI B2GP1 IGA 4.5 a units Normal 0.0-19.9 [facility] Comment on above: Performed By: #### 0 0121, 89180 ####[facility] ANTI B2GP1 IGG 0.7 g units Normal 0.0-19.9 [facility] Comment on above: Performed By: #### 0 0121, 94678 ####[facility]3000 [facility] [place] [address], [facility] ANTI B2GP1 IGM 3.8 m units Normal 0.0-19.9 [facility] Comment on above: Performed By: #### 0 0121, 68530 ####[facility]3000 [facility].[address] ANTI-ENAon 07-06-2017 ANTI SM Negative Normal NEG,NEGATIVE ,Neg [facility] Comment on above: Performed By: #### 0 0121, 66587 ####[facility] [facility] [place] [address], [facility] ANTI SM/ANTIRNP Negative Normal NEG,NEGATIVE ,Neg [facility] Comment on above: Performed By: #### 0 0121, 62725 ####[facility] [facility].[address] ANTICARDIOLIPIN ANTIBODYon 1 09-05-2016 CARDIOLIPIN IGA 3.4 APL Normal 0.0-21.9 [facility] Comment on above: Performed By: #### 0 0121, 10110 ####[facility]3000 [facility].[address] CARDIOLIPIN IGG 7.7 GPL Normal 0.0-22.9 [facility] Comment on above: Performed By: #### 0 0121, 39877 ####[facility]3000 [facility].[address] CARDIOLIPIN IGM 1.2 MPL Normal 0.0-10.9 [facility] Comment on above: Performed By: #### 0 0121, 11762 ####[facility] [facility] [place] [address], [facility] C REACTIVE PROTEINon 017 C reactive protein (CRP) 6.1 mg/L Normal 0.0-7.0 [facility] Comment on above: Performed By: #### 1 0238, 23691, 44307 ####[facility] CBC W/DIFFon 07-06-2017 Basophils Auto #/vol (Bld) 0.4 % Normal 0.0-2.0 [facility] Comment on above: Performed By: #### 5 010, 71068 ####[facility] [place] [address], [facility] Eosinophils/100 leukocytes 2.9 % Normal 0.0-5.0 [facility] Comment on above: Performed By: #### 5 102, 60301 ####[facility] Erythrocyte distribution width Auto Ratio (RBC) 15.1 % Normal 11.5-16.9 [facility] Comment on above: Performed By: #### 5 102, 06089 ####[facility] Erythrocytes (RBC) 4.47 mill/mm3 Normal 3.50-5.50 [facility] Comment on above: Performed By: #### 5 102, 68269 ####[facility] Hematocrit (HCT) 40.7 % Normal 36.0-48.0 [facility] Comment on above: Performed By: #### 5 102, 86226 ####[facility] Hemoglobin mass conc (Bld) 13.5 g/dL Normal 12.0-15.0 [facility] Comment on above: Performed By: #### 5 102, 69567 ####[facility] [place] [address], [place] Lymphocytes/100 leukocytes 27.3 % Normal 20.0-40.0 [facility] Comment on above: Performed By: #### 5 102, 45633 ####[facility] MCH 30.1 pg Normal 24.0-32.0 [facility] Comment on above: Performed By: #### 5 102, 92562 ####[facility] MCHC mass conc (RBC) 33.0 g/dL Normal 32.0-36.0 [facility] Comment on above: Performed By: #### 5 010, 29298 ####[facility]3000 [facility].[address] MCV 91.1 fL Normal 80.0-100.0 [facility] Comment on above: Performed By: #### 5 102, 62383 ####[facility]3000 [facility].[address] METHOD Normal RBC Morphology Normal [facility] Comment on above: Performed By: #### 5 102, 94212 ####[facility]3000 [facility].[address] MONOS 6.6 % Normal 2-8 [facility] Comment on above: Performed By: #### 5 102, 61000 ####[facility] [place] [address], [facility] Neutrophils/100 leukocytes 62.8 % Normal 50-70 [facility] Comment on above: Performed By: #### 5 102, 76796 ####[facility] [place] [address], [facility] PLAT CNT 209 Thou/mm3 Normal 100-400 [facility] Comment on above: Performed By: #### 5 102, 72905 ####[facility] WBC (Leukocytes) 7.9 Thou/mm3 Normal 4.0-10.0 [facility] Comment on above: Performed By: #### 5 0103, 68683 ####[facility] COMP METABOLIC PANELon 07-06 Alanine aminotransferase (ALT) 17 U/L Normal 7-52 [facility] Comment on above: Performed By: #### 0 0121, 40417 ####[facility]3000 [facility].[address] Albumin 4.4 g/dL Normal 3.5-5.7 [facility] Comment on above: Performed By: #### 0 0121, 67215 ####[facility] ALKALINE PHOSPH 54 IU/L Normal 34-104 [facility] Comment on above: Performed By: #### 0 0121, 82397 ####[facility]3000 [facility].[address] Aspartate aminotransferase (AST) 25 U/L Normal 13-39 [facility] Comment on above: Performed By: #### 0 0121, 79610 ####[facility] Bilirubin (total) 0.4 mg/dL Normal 0.3-1.0 [facility] Comment on above: Performed By: #### 0 0121, 22353 ####[facility] [facility] [place] [address], [facility] Calcium 9.4 mg/dL Normal 8.6-10.3 [facility] Comment on above: Performed By: #### 0 0121, 16070 ####[facility] [place] [address], [facility] Chloride 105 mmol/L Normal 98-107 [facility] Comment on above: Performed By: #### 0 0121, 89805 ####[facility] [facility] [place] [address], [facility] CO2 28 mmol/L Normal 21-31 [facility] Comment on above: Performed By: #### 0 0121, 65210 ####[facility] [facility] [place] [address], [facility] Creatinine 0.88 mg/dL Normal 0.60-1.20 [facility] Comment on above: Performed By: #### 0 0121, 84370 ####[place] [address] [facility].[address] eGFR (black) mL/min/{1.73_m2} Normal >60 [facility] Comment on above: Result Comment: Calc ulation may not be valid for patients over 70 years Performed By: #### 0 0121, 75927 ####[facility] [facility] [place] [address], [facility] eGFR (non-black) mL/min/{1.73_m2} Normal >[address] [facility] Comment on above: Result Comment: Calc ulation may not be valid for patients over 70 years Performed By: #### 0 0121, 88256 ####[place] [address] [address] [facility] [place] [address], [facility] Glucose mass conc 90 mg/dL Normal 70-100 [facility] Comment on above: Performed By: #### 0 0121, 24290 ####[facility] [facility] [place] [address], [facility] Potassium molar conc 3.9 mmol/L Normal 3.5-5.1 [facility] Comment on above: Performed By: #### 0 0121, 66098 ####[facility] [facility] [place] [address], [facility] Protein 7.2 g/dL Normal 6.0-8.3 [facility] Comment on above: Performed By: #### 0 0121, 15787 ####[facility] [place] [address], [facility] Sodium 137 mmol/L Normal 136-145 [facility] Comment on above: Performed By: #### 0 0121, 82077 ####[facility] [place] [address], [facility] Urea nitrogen 16 mg/dL Normal 7-25 [facility] Comment on above: Performed By: #### 0 0121, 63267 ####[facility] [place] [address], [facility] COMPLEMENT 3on 07-06-2017 COMPLEMENT 3 125 mg/dL Normal 79-152 [facility] Comment on above: Performed By: #### 1 0238, 97646, 84060 ####[facility] [place] [address], [facility] COMPLEMENT 4on 07-06-2017 COMPLEMENT 4 28 mg/dL Normal 16-38 [facility] Comment on above: Performed By: #### 1 0238, 36490, 30106 ####[facility] [place] [address], [facility] CPKon 07-06-2017 Creatine kinase (CK) 55 U/L Normal 30-223 [facility] Comment on above: Performed By: #### 0 0121, 70183 ####[facility] [place] [address], [facility] CREATININE URINE RANDOMon Creatinine 87.0 mg/dL Normal [facility] Comment on above: Result Comment: Ther e are no established reference values for random urine specimens Performed By: #### 4 9482, 60188 ####[facility] SEDIMENTATION RATEon 017 SED RATE 22 mm/hr High 0-20 [facility] Comment on above: Performed By: #### 5 0103, 83348 ####[facility] SJOGRENS ANTIBODIESon 2016 SS-A Negative Normal NEG,NEGATIVE ,Neg [facility] Comment on above: Performed By: #### 0 0121, 31738 ####[facility] SS-B Negative Normal NEG,NEGATIVE ,Neg [facility] Comment on above: Performed By: #### 0 0121, 97270 ####[facility] T PROT UR Rhianna 07-06-2017 U TOTAL PROTEIN 10.0 mg/dL Normal [facility] Comment on above: Result Comment: Ther e are no established reference values for random urine specimens Performed By: #### 4 1802, 79920 ####[facility] URINALYSISon 07-06-2017 Bilirubin (total) Negative Normal NEGATIVE [facility] Comment on above: Performed By: #### 1 0008 ####[facility] BLOOD Negative Normal NEGATIVE [facility] Comment on above: Performed By: #### 1 0008 ####[facility] EPIS MANY Abnormal FEW [facility] Comment on above: Performed By: #### 1 0008 ####[facility] [place] [address], [facility] Erythrocytes (RBC) 0-2 Abnormal 0-0 [facility] Comment on above: Performed By: #### 1 0008 ####[facility] [facility] [place] [address], [facility] Glucose mass conc Negative Normal NEGATIVE [facility] Comment on above: Performed By: #### 1 0008 ####[facility] [facility] [place] [address], [facility] KETONE Negative Normal NEGATIVE [facility] Comment on above: Performed By: #### 1 0008 ####[facility] [facility] [place] [address], [facility] LEUK GERRY TRACE Abnormal NEGATIVE [facility] Comment on above: Performed By: #### 1 0008 ####[place] [id number] [facility] [place] [address], [facility] MUCUS THREADS OCC Abnormal NONE SEEN [facility] Comment on above: Performed By: #### 1 0008 ####[place] [id number] [facility].[address] pH of blood 5.0 [pH] Normal 5.0-8.0 [facility] Comment on above: Performed By: #### 1 0008 ####[place] [id number] [facility] [place] [address], [facility] Protein Negative Normal NEGATIVE [facility] Comment on above: Performed By: #### 1 0008 ####[place] [id number] [facility], [place] [id number] [place] [address] SPEC GRAV 1.013 Low 1.015-1.020 [facility] Comment on above: Performed By: #### 1 0008 ####[address] [place] [address], [facility] Urine, appearance CLEAR Normal CLEAR [facility] Comment on above: Performed By: #### 1 0008 ####[address] [place] [address], [facility] Urine, bacteria in sediment OCC Abnormal NONE SEEN [facility] Comment on above: Performed By: #### 1 0008 ####[facility] [facility].[address] Urine, color SHAYY Abnormal YELLOW [facility] Comment on above: Performed By: #### 1 0008 ####[facility] [facility].[address] Urine, nitrite presence Positive Abnormal NEGATIVE [facility] Comment on above: Performed By: #### 1 0008 ####[facility] [facility] [place] [address], [facility] WBC UA 6-10 Abnormal 0-0 [facility] Comment on above: Performed By: #### 1 0008 ####[facility] Vital Signs Date Time Vital Sign Value Performing Clinician Faci lity 08-17-2023 13:40-0500 Body height 167.64 cm Shayy Garza Other [employer] Other 08-17-2023 13:40-0500 Body mass index (BMI) [Ratio] 26.31 kg/m2 Shayy Garza Other [employer] Other 08-17-2023 13:40-0500 Body temperature 97.9 [degF] Shayy Garza Other [employer] Other 08-17-2023 13:40-0500 Body weight 73.94 kg Shayy Garza Other [employer] Other 08-17-2023 13:40-0500 Respiratory rate 18 /min Shayy Garza Other [employer] Other 08-17-2023 13:40-0500 SaO2% (BldA) [Mass fraction] 96 % Shayy Garza Other [employer] Other 08-01-2023 09:00-0500 Body height 167.64 cm Mary Toure Other [employer] Other 08-01-2023 09:00-0500 Body mass index (BMI) [Ratio] 26.02 kg/m2 Mary Toure Other [employer] Other 08-01-2023 09:00-0500 Body temperature 98.1 [degF] Mary Toure Other [employer] Other 08-01-2023 09:00-0500 Body weight 73.12 kg Mary Toure Other [facility] Other 08-01-2023 09:00-0500 Diastolic blood pressure 97 mm[Hg] Mary Toure Other [employer] Other 08-01-2023 09:00-0500 Respiratory rate 18 /min Mary Toure Other [employer] Other 08-01-2023 09:00-0500 SaO2% (BldA) [Mass fraction] 95 % Mary Toure Other [employer] Other 08-01-2023 09:00-0500 Systolic blood pressure 166 mm[Hg] Mary Tejal Other [employer] Other 06-01-2023 14:54-0400 Diastolic blood pressure 88 mm[Hg] Rahul Salas [facility] 06-01-2023 14:54-0400 Heart rate 78 /min Rahul Salas [facility] 06-01-2023 14:54-0400 SaO2% (BldA) [Mass fraction] 97 % Rahul Salas [facility] 06-01-2023 14:54-0400 Systolic blood pressure 138 mm[Hg] Rahul Cheryoffreynold [facility] 04-20-2023 14:33-0400 Blood Pressure Location Rahul Salas [facility] 04-20-2023 14:33-0400 Diastolic blood pressure 72 mm[Hg] Rahul Cheryoffreynold [facility] 04-20-2023 14:33-0400 Heart rate 76 /min Rahul Salas [facility] 04-20-2023 14:33-0400 SaO2% (BldA) [Mass fraction] 96 % Rahul Salas [facility] 04-20-2023 14:33-0400 Systolic blood pressure 128 mm[Hg] Rahul Salas [facility] 12-21-2021 13:35-0400 Body height 167.64 cm Mary Paulmond Other [employer] Other 12-21-2021 13:35-0400 Body mass index (BMI) [Ratio] 28.73 kg/m2 Mary Tejal Other [employer] Other 12-21-2021 13:35-0400 Body temperature 97.9 [degF] Mary Tejal Other [employer] Other 12-21-2021 13:35-0400 Body weight 80.74 kg Mary Tejal Other [employer] Other 12-21-2021 13:35-0400 Diastolic blood pressure 66 mm[Hg] Mary Toure Other [employer] Other 12-21-2021 13:35-0400 Respiratory rate 16 /min Mary Toure Other [facility] [employer] Other 12-21-2021 13:35-0400 SaO2% (BldA) [Mass fraction] 97 % Mary Toure Other [employer] Other 12-21-2021 13:35-0400 Systolic blood pressure 129 mm[Hg] Mary Toure Other [employer] Other Encounters Encounter Date Encounter Type Care Provider Facility Start: 09-27-2023 Telephone encounter Deven Benton MA [facility] Comment on above: Medication Question (PT HAS BEEN GIVEN ZOFRAN IN THE PAST (PREVIOUS MD) FOR STOMACH ISSUES. SHE ASKED IF YOU COULD SEND SOME IN FOR HER USE FROM TIME TO TIME -SCR) Start: 09-12-2023 End: 09-12-2023 ambulatory Rashard Epstein Facility:[facility] Start: 09-12-2023 End: 09-12-2023 ambulatory PHYSICIAN NO [facility] Work Phone: Start: 09-12-2023 End: 09-12-2023 Patient encounter procedure PHYSICIAN NO [facility] [address] Work Phone: Start: 09-05-2023 End: 09-05-2023 ambulatory SHAIKH XOCHITL Not Available Start: 08-28-2023 End: 08-29-2023 ambulatory Gem Contreras [facility] Start: 08-28-2023 End: 08-28-2023 Patient encounter procedure Gem Contreras [facility] Start: 08-20-2023 End: 08-20-2023 ambulatory Shayy Garza Other [employer] Other Start: 08-20-2023 Telephone encounter Shayy Garza [facility] [address] Start: 08-17-2023 End: 08-17-2023 ambulatory Shayy Garza Facility:[facility] Start: 08-17-2023 End: 08-17-2023 Departed Referred PHYSICIAN NO [facility] [address] [place] Work Phone: Start: 08-17-2023 End: 08-17-2023 ambulatory PHYSICIAN NO [facility] Work Phone: Start: 08-17-2023 Office outpatient visit 15 minutes Shayy Garza [facility] Start: 08-17-2023 End: 08-17-2023 Patient encounter procedure PHYSICIAN NO [facility] Work Phone: Start: 2023 End: 08-16-2023 ambulatory Camelia LOW Facility:[facility] Start: 08-01-2023 Office outpatient visit 15 minutes Mary Toure [facility] Start: 08-01-2023 End: 08-01-2023 ambulatory Mary Toure [facility] [employer] Other Start: 08-01-2023 End: 08-01-2023 Departed Referred PHYSICIAN NO [facility] [address] [place] Work Phone: Start: 07-31-2023 End: 08-01-2023 ambulatory Gem Contreras Facility[facility] Start: 07-31-2023 End: 08-01-2023 Patient encounter procedure Gem Conterras [facility] [facility] Start: 07-24-2023 End: 07-25-2023 ambulatory SERA JENSEN Not Available Start: 07-14-2023 End: 07-15-2023 ambulatory Anoop Almanzar Facility:[facility] [place] Start: 06-29-2023 ambulatory Tonio Levy Facility:[facility] Start: 06-23-2023 ambulatory Anoop Almanzar [facility] Start: 06-22-2023 End: 06-23-2023 ambulatory Anoop Almanzar Facility:[facility] [place] Start: 06-13-2023 ambulatory Gem Contreras Facility :[facility] Start: 06-06-2023 End: 06-07-2023 ambulatory Gem Freeman Contreras Facility:[facility] Start: 06-06-2023 End: 06-06-2023 Patient encounter procedure Gem Contreras [facility] Start: 06-01-2023 End: 06-02-2023 ambulatory Anoop Almanzar Facility:[facility] Start: 06-01-2023 End: 06-01-2023 Patient encounter procedure Rahul Salas [facility] Start: 05-31-2023 ambulatory Anoop Almanzar [facility] Start: 05-30-2023 End: 05-31-2023 ambulatory Anoop Almanzar Facility:[facility] Start: 05-25-2023 End: 05-26-2023 ambulatory XXXX NONE Facility:[facility] Start: 05-11-2023 End: 05-12-2023 ambulatory Rahul Salas Facility:[facility] Start: 05-11-2023 End: 05-11-2023 Patient encounter procedure Rahul Salas [facility] Start: 05-09-2023 Telephone encounter Shayy Garza [facility] [place] Start: 05-09-2023 End: 05-10-2023 ambulatory Franco SCHERER [employer] Other Start: 05-04-2023 End: 05-04-2023 ambulatory Shayy Garza Facility:[facility] Start: 04-20-2023 End: 04-21-2023 ambulatory Anoop Almanzar Facility:[facility] Start: 04-20-2023 End: 04-20-2023 Patient encounter procedure Rahul Salas [facility] Start: 04-17-2023 End: 04-18-2023 ambulatory Anoop EsparzaElvis Almanzar Facility:[facility] [place] Start: 03-28-2023 End: 03-29-2023 ambulatory Anoop Almanzar Facility:[facility] [place] Start: 03-20-2023 End: 03-21-2023 ambulatory Anoop EsparzaElvis Almanzar Facility:[facility] [place] Start: 03-02-2023 End: 03-02-2023 ambulatory Rashard Epstein Facility:[facility] Start: 03-02-2023 End: 03-02-2023 ambulatory MD Ashutosh Santana Work Phone: [facility] Work Phone: Start: 03-02-2023 End: 03-02-2023 Patient encounter procedure MD Ashutosh Santana Work Phone: [facility] Work Phone: Start: 01-24-2023 End: 01-24-2023 ambulatory Rashard Epstein Facility:[facility] Start: 01-24-2023 End: 01-24-2023 ambulatory MD Ashutosh Santana Work Phone: [facility] Work Phone: Start: 01-24-2023 End: 01-24-2023 Patient encounter procedure MD Ashutosh Santana Work Phone: [facility] Work Phone: Start: 12-20-2022 End: 12-21-2022 ambulatory Anoop Almanzar Facility:[facility] [place] Start: 11-02-2022 End: 11-03-2022 ambulatory ASHUTOSH SANTANA Facility:[facility] [place] Start: 10-24-2022 ambulatory Anoop Yohan Facility:[facility] [place] Start: 10-21-2022 End: 10-22-2022 ambulatory PILI VELASCO [facility] Start: 09-20-2022 End: 09-21-[address] ASHUTOSH SANTANA Facility:[facility] Start: 08-17-2022 End: 08-18-[address] ASHUTOSH SANTANA Facility:[facility] Start: 05-17-2022 End: 05-17-2022 ambulatory MD Ashutosh Santana Work Phone: [facility] Work Phone: Start: 05-17-2022 End: 05-17-2022 Patient encounter procedure MD Ashutosh Santana Work Phone: [facility] [address] Start: 03-14-2022 End: 03-15-[address] ASHUTOSH SANTANA Facility:[facility] Start: 01-25-2022 End: 01-26-[address] ASHUTOSH SANTANA Facility:[facility] Start: 01-06-2022 End: 01-06-2022 ambulatory Mary Toure Other [employer] Other Start: 01-06-2022 Telephone encounter Mary Toure [facility] [place] Start: 12-21-2021 End: 12-21-2021 ambulatory Maryjad Toure Other [employer] Other Start: 12-21-2021 Office outpatient visit 25 minutes Maryjad Toure [facility] [place] Start: 09-27-[address] ASHUTOSH SANTANA Facilit y:[facility] Start: 07-06-2017 End: 07-07-2017 Ambulatory LISET WILIAN Facility:[facility] Procedures Date Procedure Procedure Detail Performing Clinician Start: 08-17-2023 Urine culture PHYSICIAN NO FAMILY Start: 08-01-2023 Urine culture PHYSICIAN NO FAMILY [...] Total abdominal hysterectomy with bilateral salpingo-oophorectomy Rahul Salas Plan of Treatment Date Care Activity Detail Author Start: 08-03-2024 Medicare Annual Wellness (AWV) Medicare Annual Wellness (AWV) [facility] Start: 11-08-2023 End: 11-08-2023 Patient encounter procedure 11/08/2023 3:30 PM EDT Office Visit [facility] [address] [place] [address] Shaikh Leung MD [address] [place] [id number] [facility] Start: 09-12-2023 Bacteria identified in Urine by Culture [facility] Start: 08-17-2023 Bacteria identified in Urine by Culture [facility] Start: 04-21-2023 Influenza vaccination Influenza Vaccine (#1) [facility] Start: 01-24-2023 Bacteria identified in Urine by Culture Urine Culture [facility] Start: 05-17-2022 [facility] Start: 1951 Pneumococcal Vaccine: 65+ Years (1 - PCV) Pneumococcal Vaccine: 65+ Years (1 - PCV) [facility] Bacteria identified in Urine by Culture [facility] Complement C3 [Mass/ volume] in Serum or Plasma [facility] Work Phone: Complement C3 [Mass/ volume] in Serum or Plasma [facility] Complement C4 [Mass/ volume] in Serum or Plasma [facility] Work Phone: Complement C4 [Mass/ volume] in Serum or Plasma [facility] Myeloperoxidase Ab [Units/volume] in Serum by Immunoassay [facility] Work Phone: Neutrophil cytoplasm ic Ab.classic [Titer] in Serum by Immunofluorescence [facility] Work Phone: Neutrophil cytoplasm ic Ab.perinuclear.atypical [Titer] in Serum by Immunofluorescence [facility] Work Phone: P-ANCA measurement [facility] Work Phone: Proteinase 3 Ab [Units/volume] in Serum by Immunoassay [facility] Work Phone: Immunizations Immunization Date Immunization Notes Care Provider Fa cility NEGATED: Highlighted row has not occurred!05-30-2023 influenza virus vaccine, unspecified formulation [facility] NEGATED: Highlighted row has not occurred!11-02-2022 influenza virus vaccine, unspecified formulation [facility] NEGATED: Highlighted row has not occurred!11-02-2022 SARS-CoV-2 mRNA (tozinameran 5y-11y) vaccine Rahul [facility] Payers Date Payer Category Payer Self-pay [id number] 2022 Medicare [id number] 2022 Medicare ANTHEM MEDICARE ADVANTAGE ANTHEM MEDICARE ADVANTAGE [id number] 2022-Present [address] [place] [address] [id number] 2021 Medicaid MEDICAID [facility] [id number] 2021-Present [phone] [address] [place] [address] Medicaid [id number] 1959 Medicaid [id number] 1959 Medicare [id number] 2.16.840.1.134878.19 1945 Unknown [id number] 2.16.840.1.831921.3.579.2. 593 1945 Unknown [id number] 2.16.840.1.164133.3.579.2. 593 1945 Unknown [id number] 2.16.840.1.402926.3.579.2. 593 1945 Unknown [id number] 2.16.840.1.823959.3.579.2. 593 1945 Unknown [id number] 2.16.840.1.283364.3.579.2. 593 1945 Unknown [id number] 2.16.840.1.515032.3.579.2. 175 1945 Unknown [id number] 2.16.840.1.090196.3.579.2. 727 1945 Unknown [id number] 2.16.840.1.560241.3.579.2. 727 1945 Unknown [id number] 2.16.840.1.733556.3.579.2. 727 1945 Unknown [id number] 2.16.840.1.139391.3.579.2. 727 1945 Unknown [id number] 2.16.840.1.220807.3.579.2. 727 1945 Unknown [id number] 2.16.840.1.658431.3.579.2. 727 1945 Unknown [id number] 2.16.840.1.373876.3.579.2. 727 1945 Unknown [id number] 2.16.840.1.870445.3.579.2. 727 1945 Unknown [id number] 2.16.840.1.317513.3.579.2. 727 1945 Unknown [id number] 2.16.840.1.808638.3.579.2. 727 1945 Unknown [id number] 2.16.840.1.181472.3.579.2. 727 1945 Unknown [id number] 2.16.840.1.879183.3.579.2. 727 1945 Unknown [id number] 2.16.840.1.775021.3.579.2. 727 1945 Unknown [id number] 2.16.840.1.897821.3.579.2. 727 1945 Unknown [id number] 2.16.840.1.530811.3.579.2. 727 1945 Unknown [id number] 2.16.840.1.053698.3.579.2. 727 1945 Unknown [id number] 2.16.840.1.535981.3.579.2. 727 1945 Unknown [id number] 2.16.840.1.384387.3.579.2. 727 1945 Unknown [id number] 2.16.840.1.307910.3.579.2. 727 1945 Unknown [id number] 2.16.840.1.651112.3.579.2. 1259 1945 Unknown [id number] 2.16.840.1.848391.3.579.2. 1259 1945 Unknown [id number] 2.16.840.1.008105.3.579.2. [address] [facility] [id number] Medicare Medicare Nonpatient [id number] Unknown [id number] 2.16.840.1.145260.3.579.2. 531 Unknown [id number] 2.16.840.1.840533.3.579.2. 531 Unknown [id number] 2.16.840.1.973079.3.579.2. 531 Unknown [id number] 2.16.840.1.732265.3.579.2. 531 Unknown [id number] 2.16.840.1.276182.3.579.2. 531 Unknown [id number] 2.16.840.1.570636.3.579.2. 531 Social History Date Type Detail Facility Unknown if ever smoked [facility] Other Start: 09-05-2023 Sex Assigned At F [facility] Start: 1945 Sex Assigned At Female F [facility] Start: 04-17-2023 End: 05-01-2023 Tobacco smoking status Never smoked tobacco (finding) [facility] Tobacco smoking status Never [facility] Start: 05-01-2023 Tobacco use and exposure Smokeless tobacco non-user [facility] Start: 09-05-2023 Alcohol intake Lifetime non-d yessica (finding) [facility] Start: 09-05-2023 History of Social function [facility] Start: 05-01-2023 Alcohol Comment caffeine intak e: 1-2 cups per day. [facility] Start: 1945 Sex Assigned At Not on file N [facility] Functional Status Date Assessment Result Facility 06-01-2023 Functional Status No [facility] 04-20-2023 Functional Status No [facility] Clinical Notes 12-21-2021 to 08-17-2023 Note Date [...] understanding and is agreeable to treatment plan. [facility] Other 12-12-2023 Evaluation note* Encounter Date Diagnosis [...] as needed for aches pains or fevers. [facility] Other 09-22-2023 NoteEchocardiology Procedure Exam Date/Time Accession # Ordering Echo Transthoracic 05/11/2023 11:40 EDT [id number] Portillo PIPER, Rahul Varner CPT code 05245 96331 Reason for Exam (Echo Transthoracic Complete) I25.10;CAD Coronary artery disease Report Version: 1 Study ID: [id number] [id number] Adult Echocardiogram Report Name: TEA RAHMAN Study Date: 05/11/2023, 10: 55 AM Patient Location: [facility] : 1945 (MM/DD/YYYY) Gender: Female Age: 77 Years Height: 167.64 cm BP: 105 / 64 mmHg Weight: 79.38 kg HR: 62 bpm BSA: 1.89 m? Ordering Physician: Rahul Salas Referring Physician: Rahul Salas Performed By: Dunia Esteban, RDMS, RVT Reason For Study: CAD Coronary artery [...] PM FINAL REPORT Dictated: 05/11/2023 10:55 am Rahul Salas MD Signed (Electronic Signature): 05/12/2023 9:34 pm Signed by: Rahul Salas MD Transcribed by: [facility] Technologist: [facility]05-03-2022 Evaluation note* Encounter Date Diagnosis Assessment [...] the ER for worsening symptoms or concerns [facility] Other Evaluation + Plan note Future Appointments Appointment Date:05/25/2023 03:15:00 PM Scheduled Provider:Rahul Salas MD [facility] [place] Appointment Type:Cardiology Follow Up (FT) Appointment Date:06/13/2023 01:20:00 PM Scheduled Provider:Anoop Almanzar MD Location:[facility]: [facility] Future Appointments Appointment Date:06/06/2023 01:00:00 PM Scheduled Provider:[place] Location:[facility] Appointment Type:BH Therapy New Patient Appointment Date:06/22/2023 04:00:00 PM Scheduled Provider:Anoop Almanzar MD Location:[facility] Appointment Type: Open Appointment Date:06/29/2023 02:30:00 PM Scheduled Provider:Tonio Levy MD Location:[facility] Digestive Health Appointment Type:BADH New Patient Appointment Date:07/14/2023 09:30:00 AM Scheduled Provider: Location:[facility] Appointment Type: Medicare Wellness Subsequent [facility] Future Appointments Appointment Date:06/13/2023 01:00:00 PM Scheduled Provider:[place] Location:[facility] Behavior[facility] Appointment Type:BH Therapy 60 Appointment Date:06/22/2023 04:00:00 PM Scheduled Provider:Anoop Almanzar MD Location:[facility] Appointment Type:FM Open Appointment Date:06/29/2023 02:30:00 PM Scheduled Provider:Tonio Levy MD Location:[facility] Dig[facility]ive Health Appointment Type:BADH New Patient Appointment Date:07/14/2023 09:30:00 AM Scheduled Provider: Location:[facility] Appointment Type:FM Medicare Wellness Subsequent [facility] evaluation + Plan note Future Appointments Appointment Date:08/10/2023 03:00:00 PM Scheduled Provider:Camelia LOW CNP [facility] Type:Cardiology ED Follow Up (FT) [facility] [employer] evaluation + Plan note Future Appointments Appointment Date:11/13/2023 12:15:00 PM Scheduled Provider:Rahul Salas MD Location:.[facility] Clinic Appointment Type:Cardiology Follow Up (FT) [facility] [employer] evaluation noteNo [employer] Other evaluation noteNo assessment information available [facility] Work Phone: evaluation note* Diagnosis Nausea- Primary Nausea alone documented in this encounter [facility] N[facility]ative - Reported* Type Description Date [...] heart Hospitalization History see above surgical hx [facility] [employer] Other Hospital course Narrative No data available for this section [facility] No data available for this section [facility] No data available for this section [facility] Summary Purpose Family History No Family History Records FoundNo Family History Records Found No data available for this section No data available for this section No data available for this section No Family History Records Found No data available for this section No Family History Records FoundNo Family History Records FoundNo Family History Records FoundNo Family History Records Found Advance Directives Advance Directive Response Recorded Date/ Time Advance Directives No July 24, 2017 5:29pm Advance Directive Response Recorded Date/ Time Advance Directives No July 24, 2017 4:29pm Chief Complaint and Reason for Visit Chief Complaint soof Chief Complaint lUPUS Chief Complaint R30. Chief Complaint Pressure On Bladder/ /Urinary Urgency R30. Bladder Infection R10.9 Additional Source Comments INFORMATION SOURCE (unrecogn ized section and content) DATE CREATED AUTHOR 02/13/2018 [facility] DATE CREATED AUTHOR AUTHOR'S ORGANIZ ATION 09/21/2022 [facility] DATE CREATED AUTHOR AUTHOR'S ORGANIZ ATION 08/27/2023 [facility] DATE CREATED AUTHOR AUTHOR'S ORGANIZ ATION 08/29/2023 [facility] DATE CREATED AUTHOR AUTHOR'S ORGANIZ ATION 08/29/2023 [facility] DATE CREATED AUTHOR AUTHOR'S ORGANIZ ATION 09/06/2023 [facility] EPIC DATE CREATED AUTHOR AUTHOR'S ORGANIZ ATION 09/29/2023 [facility] REASON FOR VISIT (unrecogniz ed section and content) Reason Onset Date Comments Medication Question 09/27/2023 PT HAS BEEN GIVEN ZOFRAN IN THE PAST (PREVIOUS MD) FOR STOMACH ISSUES. SHE ASKED IF YOU COULD SEND SOME IN FOR HER USE FROM TIME TO TIME -SCR Care Teams (unrecognized sec tion and content) [...] Provider Active SUMAN Tomas Attending Provider Active Team Status: Inactive Member Role Status Dates SUMAN Tomas Attending Provider Active S tart: August 01, 2023 End: August 01, 2023 Team Status: Inactive Member Role Status Dates PHYSICIAN NO FAMILY Primary Care Provider Active Start: August 01, 2023 End: August 01, 2023 SUMAN Tomas Attending Provider Active S tart: August 01, 2023 End: August 01, 2023 Team Status: Inactive Member Role Status Dates Shayy Garza APRN Attending Provider Active Start: August 17, 2023 End: August 17, 2023 Team Status: Inactive Member Role Status Dates PHYSICIAN NO FAMILY Primary Care Provider Active Start: August 17, 2023 End: August 17, 2023 Shayy Garza APRN Attending Provider Active Start: August 17, 2023 End: August 17, 2023 Team Status: Inactive Member Role Status Dates PHYSICIAN NO FAMILY Primary Care Provider Active Start: September 12, 2023 End: September 12, 2023 Rashard Epstein MD Attending Provider Active St art: September 12, 2023 End: September 12, 2023 Optometry Teacher Relationship Specialty Start Date End Date Shaikh Leung MD PCP - General Internal Medicine 09/05/23 Goals (unrecognized section and content) Goals may [...] BE BASED ON THE PRIMARY CLINICAL RECORDS. [employer] [facility]. provides no warranty or guarantee of the accuracy or completeness of information in this document.
== END 2023-10-09 20:39 | disposition home or self-care (01) ==
LOC: LAB 20:38
PROVIDERS: PCP Internal Medicine; Visit Provider Internal Medicine
DX: N30.01 Acute cystitis with hematuria (principal)
CPT/HCPCS: 87086

== ENCOUNTER 2023-12-03 16:26 | Emergency (ER) | payer MEDICARE, MEDICAID, SELFPAY ==
[2023-12-03 16:40] VITALS: BP 180/98; PULSE 93; TEMP 36.8; O2SAT 99; BMI 26.3
--- OUTSIDE RECORDS SUMMARY | 2023-12-03 16:48 | XMS_ITS | CCD ---
Author Organization [facility] Care Team Providers Care Fur Nailer Name Role Phone WILIAN, LISET Unavailable Unavailable WILIAN, LISET Unavailable Unavailable MAX, ASHUTOSH Unavailable Unavailable MAX, ASHUTOSH Unavailable Unavailable Mary Toure Unavailable MD Ashutosh Santana Primary Care Provider [phone] MD Rashard Aguilar Attending Provider [phone] MAX, DR ASHUTOSH Esparza Primary Care Unavailable [...] Ashutosh Santana Primary Care Provider MD Rashard Aguilar Attending Provider Anoop Almanzar Primary Care Physician Shayy Garza Unavailable NONE, XXXX Primary Care Physician Unavailab le NO FAMILY, PHYSICIAN Primary Care Provider Unava ilable SUMAN Toure Attending Provider [phone] ABIGAIL Garza Attending Provider [phone] PILI VELASCO Referring Unavailable ASHUTOSH SANTANA Primary Care Unavailable SUMAN oTure Attending Provider MD Rashard Aguilar Attending Provider Mary Toure Admitting Unavailable Mary Toure Attending Unavailable NO FAMILY, PHYSICIAN Primary Care Unavailable Rashard Aguilar Attending Unavailable Ashutosh Santana E Primary Care Unavailable Rashard Aguilar Admitting Unavailable Rashard Aguilar Attending Unavailable Ashutosh Santana Primary Care Unavailable Lauren, Rashard Admitting Unavailable Garza, Shayy L Admitting Unavailable Garza, Shayy L Attending Unavailable NO FAMILY, PHYSICIAN Primary Care Unavailable Rashard Aguilar Attending Unavailable NO FAMILY, PHYSICIAN Primary Care Unavailable Halmiller, Rashard Admitting Unavailable Garza, Shayy L Admitting Unavailable Greg Shayy L Attending Unavailable NO FAMILY, PHYSICIAN Primary Care Unavailable Ricki Leung MDikh Primary Care Provider SHAIKH LEUNG Attending Unavailable SHAIKH LEUNG Attending Unavailable SERA JENSEN Attending Unavailable SERA JENSEN Referring Unavailable SERA JENSEN Attending Unavailable SHAIKH LEUNG Attending Unavailable SHAIKH LEUNG Primary Care Physician Gem Contreras Attending Unavailable Gem Contreras Attending Unavailable Gem Contreras Attending Unavailable Anoop Almanzar Attending Unavailable Gem Contreras Attending Unavailable Anoop Almanzar Attending Unavailable Anoop Almanzar Attending Unavailable Anoop Almanzar Attending Unavailable NONE, XXXX Referring Unavailable Rahul Salas Attending Unavaila Anoop Valerio Attending Unavailable Anoop Almanzar Attending Unavailable Anoop Almanzar Attending Unavailable NONE, XXXX Referring Unavailable Rahul Salas Attending Unavaila Rahul Dillon Admitting Unavaila Anoop Valerio Referring Unavailable Rahul Salas Attending Unavaila Rahul Dillon Admitting Unavaila Rahul Dillon Consulting Unavaila Rahul Dillon Attending Unavaila Rahul Dillon Referring Unavaila Rahul Dillon Consulting Unavaila Rahul Dillon Consulting UnavailFranco Harley Admitting Unavailable Franco SCHERER Attending Unavailable Franco SCHERER Referring Unavailable Camelia LOW Admitting Unavailable NONE, XXXX Referring Unavailable Rahul Salas Attending Anoop Borrero Referring Unavailable Rahul Salas Attending Tonio Decker Attending Jaye zimmerman Allergies Allergy Classification Reported Allergen(s) Allergy Type Date of Onset Reaction(s) Facility (20 sources) prochlorperazine; 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: [compazine] Drug Allergy 12-12-19 12 [facility], throat swelling, unknown [facility] Repository (10 sources) Ciprofloxacin Drug Allergy 05-15-20 20 rash, Unknown [facility] Other (1 source) Levamisole Drug Allergy [facility] Repository (8 sources) atorvastatin; 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: [atorvastatin] Drug Allergy unknown [facility] (9 sources) Solifenacin; 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: [solifenacin] Drug Allergy 04-04-20 22 Unknown [facility] (1 source) Ciprofloxacin Drug Allergy 08-17-20 23 [facility] Repository (1 source) Prochlorperazine Drug Allergy 08-17-20 [facility] Repository (1 source) atorvastatin Drug Allergy 08-24-19 24 Other [facility] (1 source) busPIRone Drug Allergy 11-17-19 22 Unknown [facility] (1 source) Nitrofurantoin Drug Allergy 01-04-20 17 [facility] (1 source) Nitrofurantoin Drug Allergy 10-17-19 17 [facility] (1 source) Prochlorperazine Drug Allergy 09-29-19 07 Anaphylaxis, GI intolerance, Other, Swelling, Unknown [facility] Medications Current Medications Medication Drug Class(es) Dates Sig (Normalized) Sig (Original) acetaminophen 325 mg / HYDROcodone bitartrate 5 mg oral tablet (8 sources) Opioid Agonist Start: 06-22-2023 acetaminophen-hydr ocodone 325 mg-5 mg oral tablet 1 tab(s), Oral, q6hr, 90 tab(s), Refill(s) 0, [facility] #[id number], 167, cm, 06/22/23 15:56:00 EDT, Height/Length Dosing, 75.7, kg, 06/22/23 15:56:00 EDT, Weight Dosing Start Date: 06/22/23 Status: Ordered Start: 05-30-2023 acetaminophen- hydrocodone 325 mg-5 mg oral tablet 1 tab(s), Oral, q6hr, 90 tab(s), Refill(s) 0, [facility] #[id number], 167, cm, 05/30/23 14:35:00 EDT, Height/Length Dosing, 77.1, kg, 05/30/23 14:35:00 EDT, Weight Dosing Start Date: 05/30/23 Status: Ordered Start: 03-10-2023 acetaminophen- hydrocodone 325 mg-5 mg oral tablet 1 tab(s), Oral, q6hr, 90 tab(s), Refill(s) 0, [facility] #[id number], 167, cm, 12/20/22 16:33:00 EDT, Height/Length Dosing, 82, kg, 12/20/22 16:33:00 EDT, Weight Dosing Start Date: 03/10/23 Status: Ordered take 1 tablet by theo th in the morning, then take 1 tablet by mouth in the evening, then take 1 tablet by mouth at bedtime HYDROcodone-acetaminophen (Sidney) 5-325 MG tablet Take 1 tablet by mouth in the morning and 1 tablet in the evening and 1 tablet before bedtime. 0 Active ALPRAZolam 0.5 mg oral tablet (8 sources) Benzodiazepine Start: 06-22-2023 take 1 tablet [...] anxiety, # 10 tab(s), Refills(s) 0, Pharmacy: [facility] #[id number], 167, cm, 05/25/23 15:36:00 EDT, Height/Length Dosing, 76.6, kg, 05/25/23 15:36:00 EDT, Weight Dosing Start Date: 05/29/23 Status: Ordered Start: 04-25-2023 take 1 tablet by theo th three times daily as needed for anxiety alprazolam 0.5 mg Tab 0.5 mg = 1 tab(s), Oral, TID, PRN for anxiety, # 30 tab(s), Refills(s) 0, [id number], 167, cm, 04/20/23 14:55:00 EDT, Height/Length Dosing, 78.6, kg, 04/20/23 14:55:00 EDT, Weight Dosing Start Date: 04/25/23 Status: Ordered Start: 03-28-2023 take 1 tablet by theo three times daily as needed for anxiety alprazolam 0.5 mg Tab 0.5 mg = 1 tab(s), Oral, TID, PRN for anxiety, # 30 tab(s), Refills(s) 0, Pharmacy: [facility] #[id number], 167, cm, 03/28/23 13:02:00 EDT, Height/Length Dosing, 79.8, kg, 03/28/23 13:02:00 EDT, Weight Dosing Start Date: 03/28/23 Status: Ordered take 2 tablets by mouth once ALP RAZolam (Xanax) 0.25 MG tablet Take 0.5 mg by mouth every 12 (twelve) hours if needed for anxiety or sleep 0 Active Amlodipine (16 sources) Dihydropyridine Calcium Channel Doretha Start: 11-01-2022 amlodipine Oral, Daily, Refills(s) 0 Start Date: 11/01/22 Status: Ordered amLODIPine Besyl ate 5 MG Oral for 30 Not-Taking/PRN Aspir-81 (9 sources) Aspir-81 Active aspirin 81 mg delayed release oral tablet (1 source) Platelet Aggregation Inhibitor, Nonsteroidal Anti-inflammatory Drug aspirin (ASPIR) 8 1 MG EC tablet 1 (one) time each day at the same time. 0 Active carvedilol 12.5 mg oral tablet (17 sources) alpha-Adrenergic Doretha, beta-Adrenergic Doretha Start: take 1 tablet by mouth twice daily carvedilol 12.5 mg Tab 12.5 mg = 1 tab(s), Oral, BID, # 60 tab(s), Refills(s) 3, Pharmacy: [facility] #[id number], 170, cm, 08/15/23 14:27:00 EST, Height/Length Dosing, 72, kg, 08/15/23 14:27:00 EST, Weight Dosing Start Date: 10/03/23 Status: Ordered Start: 03-27-2023 take 1 tablet by theo th in the morning carvedilol (Coreg) 12.5 MG [...] 8 hrs for 7 Jul, Active Ergocalciferol (16 sources) Provitamin D2 Compound Start: 11-01-2022 ergocalciferol 1,250 mg, Oral, Refills(s) 0 Start Date: 11/01/22 Status: Ordered Vitamin D2 Not-T aking/PRN Vitamin D2 Not-T aking Vitamin D2 Activ e Esomeprazole (10 sources) Proton Pump Inhibitor Esomeprazo le Magnesium (NEXIUM PO) NexIUM Active hydrocortisone acetate 10 mg/ml / pramoxine hydrochloride 10 mg/ml rectal foam (7 sources) Corticosteroid Start: 03-20-2023 Proctofoam HC rectal foam 1 elías, Rectal, TID, 10 gram, Refill(s) 0, [facility] #[id number], 167, cm, 03/20/23 11:45:00 EDT, Height/Length Dosing, 80.9, kg, 03/20/23 11:45:00 EDT, Weight Dosing Start Date: 03/20/23 Status: Ordered hydroxychloroquine sulfate 200 mg oral tablet (17 sources) Antimalarial, Antirheumatic Agent Start: 10-27-2022 hydroxychloroquine 200 mg Tab Refills(s) 0 Start Date: 10/27/22 Status: Ordered Hydroxychloroqui ne Sulfate Active hydrOXYzine (4 sources) Antihistamine hydrOXYzine HCl Active hyoscyamine sulfate 0.125 mg disintegrating oral tablet (8 sources) Start: take 1 tablet by mouth four times daily hyoscyamine 0.125 mg oral tablet, disintegrating 0.125 mg = 1 tab(s), Oral, QID, # 60 tab(s), Refills(s) 1, Pharmacy: [facility] #[id number], 167, cm, 06/01/23 14:55:00 EDT, Height/Length Dosing, [...] mononitrate 30 mg extended release oral tablet (5 sources) Nitrate Vasodilator Start: 05-26-2023 take 1 tablet by mouth once daily in the morning isosorbide mononitrate 30 mg ER Tab 30 mg = 1 tab(s), Oral, qAM, # 30 tab(s), Refills(s) 6, Pharmacy: [facility] #[id number], 167, cm, 05/25/23 15:36:00 EDT, Height/Length Dosing, 76.6, kg, 05/25/23 15:36:00 EDT, Weight Dosing Start Date: 05/26/23 Status: Ordered levothyroxine sodium 0.1 mg oral tablet (17 sources) l-Thyroxine Start: 11-30-2022 take 1 tablet by mouth once daily levothyroxine 100 mcg (0.1 mg) Tab 100 mcg = 1 tab(s), Oral, Daily, # 90 tab(s), Refills(s) 3, Pharmacy: [facility] #[id number], 167.4, cm, 11/02/22 15:26:00 EDT, Height/Length Dosing, 82.7, kg, 11/02/22 15:26:00 EDT, Weight Dosing Start Date: 11/30/22 Status: Ordered take 1 tablet by mouth once fede y levothyroxine (Synthroid, Levoxyl) 100 MCG tablet Take 1 tablet every day by oral route for 30 days. 0 Active Levothyroxine So dium Active losartan potassium 100 mg oral tablet (17 sources) Angiotensin 2 Receptor Doretha Start: 10-03-2023 take 1 tablet by mouth once daily losartan 100 mg Tab 100 mg = 1 tab(s), Oral, Daily, # 30 tab(s), Refills(s) 3, Pharmacy: [facility] #[id number], 170, cm, 08/15/23 14:27:00 EST, Height/Length Dosing, 72, kg, 08/15/23 14:27:00 EST, Weight Dosing Start Date: 10/03/23 Status: Ordered Start: 10-04-2022 losartan 100 m g Tab Refills(s) 0 Start Date: 10/27/22 Status: Ordered Losartan Potassi um Active methylPREDNISolone 4 mg oral tablet (1 source) Corticosteroid Start: 05-11-2023 End: 05-17-2023 Medrol Dosepack 4 mg Tab = 1 packet(s), Oral, As Directed, as directed on package labeling, X 6 day(s), # 21 tab(s), Refills(s) 0, Pharmacy: [facility] #[id number], 167, cm, 04/20/23 14:55:00 EDT, Height/Length Dosing, [...] Active ondansetron 4 mg disintegrating oral tablet (7 sources) Serotonin-3 Receptor Antagonist Start: 09-27-2023 End: [...] q8hr, # 10 tab(s), Refills(s) 1, Pharmacy: [facility] #[id number], 167, cm, 06/01/23 14:55:00 EDT, Height/Length Dosing, 77, kg, 06/01/23 15:07:00 EDT, Weight Dosing Start Date: 06/02/23 Status: Ordered Start: 11-01-2022 take 1 tablet by theo th every eight hours ondansetron 4 mg Tab 4 mg = 1 tab(s), Oral, q8hr, Refills(s) 0 Start Date: 11/01/22 Status: Ordered phenazopyridine hydrochloride 200 mg oral tablet (20 sources) Start: 12-21-2021 phenazopyridine 200 mg Tab 200 mg = 1 tab(s), Oral, TIDPC, Refills(s) 0 Start Date: 11/01/22 Status: Ordered PASCALEARD (12 sources) Start: 05-03-2023 YAMILKA PRATHER, See Instructions, 1 EA, 0, expires in 5 years, Supply Start Date: 05/03/23 Status: Ordered predniSONE 20 mg oral tablet (2 sources) Start: 08-17-2023 take 1 tablet by mouth every twelve hours prednisone 20 MG 1 tablet Orally BID for Jul, Active sertraline 25 mg oral tablet (7 sources) Serotonin Reuptake Inhibitor Start: 11-01-2022 take [...] Orally bid for 5 day(s) December, Not-Taking/PRN sulfamethoxazole 800 mg / trimethoprim 160 mg oral tablet (4 sources) Dihydrofolate Reductase Inhibitor Antibacterial, Sulfonamide Antimicrobial Start: 08-01-2023 take 1 tablet by mouth every twelve hours Bactrim DS 800-160 MG 1 tablet Orally Twice a day for 7 Jul, Not-Taking/PRN Problems Active Problems Problem Classification Problem Date Documented Da te Episodic/Chronic Adjustment disorders (3 sources) Adjustment disorder with anxious mood 06-12-2023 Chronic Administrative/social admission (2 sources) Patient encounter status; 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: [Persons encountering health services in other specified circumstances] Onset: 4 09-05-2023 Episodic Anxiety disorders (18 sources) Anxiety; 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: [Mixed anxiety and depressive disorder] Onset: 4 11-01-2022 Chronic Calculus of urinary tract (7 sources) Urinary bladder stone 12-20-2022 Episodic Coronary atherosclerosis and other heart disease (8 sources) Coronary arteriosclerosis; 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: [Atherosclerotic heart disease of [place] coronary artery without angina pectoris] Onset: 4 04-17-2023 Chronic Deficiency and other anemia (7 sources) Anemia 11-01-2022 Episodic Disorders of lipid metabolism (8 sources) Pure hypercholesterolemia; 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: [Hyperlipidemia] Onset: 4 11-01-2022 Chronic Esophageal disorders (1 source) Gastroesophageal reflux disease; 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: [Gastro-esophageal reflux disease without esophagitis] Onset: 4 09-05-2023 Chronic Essential hypertension (8 sources) Essential hypertension; 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: [Hypertensive disorder] Onset: 4 11-01-2022 Chronic Genitourinary symptoms and ill-defined conditions (10 sources) Frequency of micturition; 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: [Dysuria] Onset: 2 Resolved: 2 Episodic Hemorrhoids (7 sources) Hemorrhoids 03-20-2023 Episodic Mood disorders (7 sources) Depressive disorder; 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: [Single episode of major depression in full remission] 12-20-2022 Chronic Nausea and vomiting (1 source) Nausea; 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: [Nausea] 09-27-2023 Episodic Nutritional deficiencies (8 sources) Disorder of vitamin D; 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: [Vitamin D deficiency] Onset: 4 11-01-2022 Chronic Osteoarthritis (8 sources) Osteoarthritis of knee; 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: [Osteoarthritis] Onset: 4 11-01-2022 Chronic Comment on above: Left knee Chronic Osteoporosis (7 sources) Primary osteoporosis 11-01-2022 Chronic Other aftercare (1 source) Long-term current use of opiate analgesic drug; 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: [FPC (current) use of opiate analgesic] Onset: 4 09-05-2023 Episodic Other connective tissue disease (7 sources) Impingement syndrome of shoulder region 11-01-2022 Episodic Other connective tissue disease (7 sources) Primary fibromyalgia syndrome 11-01-2022 Episodic Other connective tissue disease (1 source) Fibromyalgia; 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: [Fibromyalgia] Onset: 4 09-05-2023 Episodic Other gastrointestinal disorders (7 sources) Irritable bowel syndrome 11-01-2022 Chronic Other injuries and conditions due to external causes (2 sources) History of fall 11-01-2022 Episodic Other nutritional; endocrine; and metabolic disorders (7 sources) Overweight in adulthood with body mass index of 25 or more but less than 30 11-02-2022 Episodic Other upper respiratory infections (7 sources) Posterior rhinorrhea 04-17-2023 Episodic Peripheral and visceral atherosclerosis (7 sources) Atherosclerosis of aorta 11-01-2022 Chronic Spondylosis; intervertebral disc disorders; other back problems (7 sources) Sciatica 11-01-2022 Episodic Systemic lupus erythematosus and connective tissue disorders (2 sources) Systemic involvement of connective tissue, unspecified; 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: [Lupus erythematosus] Onset: 4 09-05-2023 Chronic Thyroid disorders (12 sources) Hypothyroidism, unspecified; 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: [Hypothyroidism] Onset: 3 Chronic Unclassified (7 sources) Long-term current use of opiate analgesic [...] Date Documented Da te Episodic/Chronic Abdominal pain (9 sources) Generalized abdominal pain; 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: [Unspecified abdominal pain] Onset: 03-20-2023 03-28-2023 Episodic Malaise and fatigue (4 sources) Other fatigue; 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: [OTHER FATIGUE] Onset: 07-06-2017 Episodic Other bone disease and musculoskeletal deformities (1 source) Disorder of bone, unspecified; 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: [Disorder of bone, unspecified] Onset: 01-24-2023 Episodic Results Test Name Value Interpretation Reference Range Facility Consent for Treatmenton 10-20 Consent for Treatment [id number] 0TIFF [facility] Physician Orderon 11-13-2023 Physician Order [id number]#1. 00TIFF [facility] Amorphous urine sedimentOrde red By: Rashard Aguilar on 09-12-2023 Amorphous sediment LM Ql (Urine sed) See comment Negative [facility] Comment on above: Unable to obtain acc urate result due to color interference. Automated epithelial cells c ount in urine sediment (number/area)Ordered By: Rashard Aguilar on 09-12-2023 Epithelial cells Auto (Urine sed) [#/Area] 5-9 [HPF] 0-2 [facility] Automated erythrocytes count in urine sediment (number/area)Ordered By: Rashard Aguilar on 09-12-2023 RBC Auto (Urine sed) [#/Area] 3-4 [HPF] 0-4 [facility] Automated leukocytes count i n urine sediment (number/area)Ordered By: Rashard Aguilar on 09-12-2023 WBC Auto (Urine sed) [#/Area] 50-100 [HPF] 0-4 [facility] Automated urine hyaline cast s count (number/volume)Ordered By: Rashard Aguilar on 09-12-2023 Hyaline casts Auto (U) [#/Vol] 0-1 [LPF] 0-1 [facility] Automated urine specific gra vity by refractometryOrdered By: Rashard Aguilar on 09-12-2023 Specific gravity Refractometry automated (U) [Rel density] 1.028 1.001-1.030 [facility] Basophils Auto (Bld) [#/Vol] [facility]: [facility] Basophils (Bld) [#/Vol] 0.0 10*3/uL 0.0-0.2 [facility] Basophils/100 WBC Auto (Bld) [facility] Basophils/100 WBC (Bld) 0.8 % . [facility] Bilirubin Auto test strip Ql (U)Ordered By: Rashard Aguilar on 09-12-2023 Bilirubin Ql (U) See comment Negative [facility] Comment on above: Unable to obtain acc urate result due to color interference. C reactive protein [Mass/vol ume] in Serum or PlasmaOrdered By: Rashard Aguilar on 09-12-2023 CRP [Mass/Vol] 0.6 mg/dL 0.0-0.5 [facility] C-Reactive Proteinon 024 C-Reactive Protein 0.6 mg/dL High 0.0-0.5 [facility] Comment on above: Result Comment: PERF ORMED BY: [place] [address] PATHOLOGIST OYSTER UNLOADER KEYON SERNA M.D. Performed By: #### C BC, ADDONUAPLUS, ESR, CUU, CRP, CREAT #### [place] [address] [place] #### C4, C3 #### [facility] , Complement C3on 09-12-2023 Complement C3 155 mg/dL Normal 82-167 [facility] Comment on above: Result Comment: Perf ormed at: - [facility] [address], [place] [id number] Backing In Machine Tender: Paul Dumont PhD, Phone: [phone] Performed By: #### C BC, ADDONUAPLUS, ESR, CUU, CRP, CREAT #### [address] #### C4, C3 #### [facility] , Complement C4on 09-12-2023 Complement C4 34 mg/dL Normal 12-38 [facility] Comment on above: Result Comment: PERF ORMED BY: [place] [address] PATHOLOGIST OYSTER UNLOADER KEYON SERNA M.D. Performed By: #### C BC, ADDONUAPLUS, ESR, CUU, CRP, CREAT #### [address] #### C4, C3 #### [facility] , Complete Blood Count Auto Di ffon 09-12-2023 Basophils (Bld) [#/Vol] 0.0 10*3/uL Normal 0.0-0.2 [facility] Comment on above: Performed By: #### C BC, ADDONUAPLUS, ESR, CUU, CRP, CREAT #### [address] #### C4, C3 #### [facility] , Basophils/100 WBC (Bld) 0.8 % Normal . [facility] Comment on above: Performed By: #### C BC, ADDONUAPLUS, ESR, CUU, CRP, CREAT #### [place] [address] [place] #### C4, C3 #### [facility] , Eosinophils (Bld) [#/Vol] 0.2 10*3/uL Normal 0.0-0.45 [facility] Comment on above: Performed By: #### C BC, ADDONUAPLUS, ESR, CUU, CRP, CREAT #### [place] [address] [place] #### C4, C3 #### [facility] , Eosinophils/100 WBC (Bld) 4.0 % Normal . [facility] Comment on above: Performed By: #### C BC, ADDONUAPLUS, ESR, CUU, CRP, CREAT #### [place] [address] [place] #### C4, C3 #### [facility] , Erythrocyte distribution width (RBC) [Ratio] 14.3 % Normal 11.9-15.3 [facility] Comment on above: Performed By: #### C BC, ADDONUAPLUS, ESR, CUU, CRP, CREAT #### [address] #### C4, C3 #### [facility] , Hematocrit (Bld) [Volume fraction] 39.2 % Normal 34.0-46.4 [facility] Comment on above: Performed By: #### C BC, ADDONUAPLUS, ESR, CUU, CRP, CREAT #### [place] [address] [place] #### C4, C3 #### [facility] , Hemoglobin (Bld) [Mass/Vol] 12.9 g/dL Normal 11.8-15.4 [facility] Comment on above: Performed By: #### C BC, ADDONUAPLUS, ESR, CUU, CRP, CREAT #### [place] [address] [place] #### C4, C3 #### [facility] , Lymphocytes (Bld) [#/Vol] 1.8 10*3/uL Normal 1.00-4.8 [facility] Comment on above: Performed By: #### C BC, ADDONUAPLUS, ESR, CUU, CRP, CREAT #### [place] [address] [place] #### C4, C3 #### [facility] , Lymphocytes/100 WBC (Bld) 31.9 % Normal . [facility] Comment on above: Performed By: #### C BC, ADDONUAPLUS, ESR, CUU, CRP, CREAT #### [place] [address] [place] #### C4, C3 #### [facility] , MCH (RBC) [Entitic mass] 31.1 pg Normal 24.7-34.3 [facility] Comment on above: Performed By: #### C BC, ADDONUAPLUS, ESR, CUU, CRP, CREAT #### [address] #### C4, C3 #### [facility] , MCV (RBC) [Entitic vol] 94.4 fL Normal 80-100 [facility] Comment on above: Performed By: #### C BC, ADDONUAPLUS, ESR, CUU, CRP, CREAT #### [place] [address] [place] #### C4, C3 #### [facility] , Mean Corpuscular HGB Conc 33.0 g/dL Normal 32.0-35.0 [facility] Comment on above: Performed By: #### C BC, ADDONUAPLUS, ESR, CUU, CRP, CREAT #### [place] [address] [place] #### C4, C3 #### [facility] , Monocytes (Bld) [#/Vol] 0.5 10*3/uL Normal 0.0-0.8 [facility] Comment on above: Performed By: #### C BC, ADDONUAPLUS, ESR, CUU, CRP, CREAT #### [place] [address] [place] #### C4, C3 #### [facility] , Monocytes/100 WBC (Bld) 8.5 % Normal . [facility] Comment on above: Performed By: #### C BC, ADDONUAPLUS, ESR, CUU, CRP, CREAT #### [facility] [address] [place] [address] #### C4, C3 #### [facility] , Neutrophils (Bld) [#/Vol] 3.1 10*3/uL Normal 1.8-7.7 [facility] Comment on above: Performed By: #### C BC, ADDONUAPLUS, ESR, CUU, CRP, CREAT #### [facility] [address] [place] [address] [place] #### C4, C3 #### [facility] , Neutrophils/100 WBC (Bld) 54.8 % Normal . [facility] Comment on above: Performed By: #### C BC, ADDONUAPLUS, ESR, CUU, CRP, CREAT #### [address] #### C4, C3 #### [facility] , NRBC% 0.2 /100{WBC} Normal 0-0.5 [facility] Comment on above: Performed By: #### C BC, ADDONUAPLUS, ESR, CUU, CRP, CREAT #### [facility] [address] [place] [address] [place] #### C4, C3 #### [facility] , Platelet mean volume (Bld) [Entitic vol] 7.6 fL Normal 6.3-10.7 [facility] Comment on above: Performed By: #### C BC, ADDONUAPLUS, ESR, CUU, CRP, CREAT #### [facility] [address] [place] [address] [place] #### C4, C3 #### [facility] , Platelets (Bld) [#/Vol] 263 10*3/uL Normal 150-450 [facility] Comment on above: Performed By: #### C BC, ADDONUAPLUS, ESR, CUU, CRP, CREAT #### [facility] [address] [place] [address] #### C4, C3 #### [facility] , RBC (Bld) [#/Vol] 4.16 10*6/uL Normal 3.60-5.00 [facility] Comment on above: Performed By: #### C BC, ADDONUAPLUS, ESR, CUU, CRP, CREAT #### [address] #### C4, C3 #### [facility] , WBC (Bld) [#/Vol] 5.7 10*3/uL Normal 3.8-11.6 [place] [facility] Comment on above: Performed By: #### C BC, ADDONUAPLUS, ESR, CUU, CRP, CREAT #### [address] #### C4, C3 #### [facility] , Creatinineon 09-12-2023 Creatinine [Mass/Vol] 0.92 mg/dL Normal 0.60-1.20 [facility] Comment on above: Performed By: #### C BC, ADDONUAPLUS, ESR, CUU, CRP, CREAT #### [facility] [address] [place] [address] [place] #### C4, C3 #### [facility] , GFR/1.73 sq M.predicted MDRD (S/P/Bld) [Vol rate/Area] mL/min/{1.73_m2} [facility] Comment on above: Performed By: #### C BC, ADDONUAPLUS, ESR, CUU, CRP, CREAT #### [place] [address] [place] #### C4, C3 #### [facility] , Creatinine [Mass/volume] in Serum or PlasmaOrdered By: Rashard Aguilar on 09-12-2023 Creatinine [Mass/Vol] 0.92 mg/dL 0.60-1.20 [facility] Dipstick and Microscopicon 0 09-12-2023 Appearance (U) Slightly Cloudy Critically abnormal Clear [facility] Comment on above: Order Comment: Name Collection Type:: Clean-Voided Midstream Performed By: #### C BC, ADDONUAPLUS, ESR, CUU, CRP, CREAT #### [address] #### C4, C3 #### [facility] , Bacteria,Urine 2+ High None Seen [facility] Comment on above: Order Comment: Name Collection Type:: Clean-Voided Midstream Performed By: #### C BC, ADDONUAPLUS, ESR, CUU, CRP, CREAT #### [address] #### C4, C3 #### [facility] , Bilirubin,Urine Normal Negative [facility] Comment on above: Order Comment: Name Collection Type:: Clean-Voided Midstream Result Comment: Unab le to obtain accurate result due to color interference. Performed By: #### C BC, ADDONUAPLUS, ESR, CUU, CRP, CREAT #### [address] #### C4, C3 #### [facility] , Color (U) [place] Critically abnormal Yellow [facility] Comment on above: Order Comment: Name Collection Type:: Clean-Voided Midstream Performed By: #### C BC, ADDONUAPLUS, ESR, CUU, CRP, CREAT #### [place] [address] [place] #### C4, C3 #### [facility] , Glucose Ql (U) Normal Normal [facility] Comment on above: Order Comment: Name Collection Type:: Clean-Voided Midstream Result Comment: Unab le to obtain accurate result due to color interference. Performed By: #### C BC, ADDONUAPLUS, ESR, CUU, CRP, CREAT #### [place] [address] [place] #### C4, C3 #### [facility] , Hyaline Casts,Urine 0-1 Normal 0-1 [facility] Comment on above: Order Comment: Name Collection Type:: Clean-Voided Midstream Performed By: #### C BC, ADDONUAPLUS, ESR, CUU, CRP, CREAT #### [address] #### C4, C3 #### [facility] , Ketones Ql (U) Normal Negative [facility] Comment on above: Order Comment: Name Collection Type:: Clean-Voided Midstream Result Comment: Unab le to obtain accurate result due to color interference. Performed By: #### C BC, ADDONUAPLUS, ESR, CUU, CRP, CREAT #### [address] #### C4, C3 #### [facility] , Leukocyte esterase Test strip Ql (U) Normal Negative [facility] Comment on above: Order Comment: Name Collection Type:: Clean-Voided Midstream Result Comment: Unab le to obtain accurate result due to color interference. Performed By: #### C BC, ADDONUAPLUS, ESR, CUU, CRP, CREAT #### [place] [address] [place] #### C4, C3 #### [facility] , Nitrite,Urine Normal Negative [facility] Comment on above: Order Comment: Name Collection Type:: Clean-Voided Midstream Result Comment: Unab le to obtain accurate result due to color interference. Performed By: #### C BC, ADDONUAPLUS, ESR, CUU, CRP, CREAT #### [place] [address] [place] #### C4, C3 #### [facility] , Occult Blood,Urine Normal Negative [facility] Comment on above: Order Comment: Name Collection Type:: Clean-Voided Midstream Result Comment: Unab le to obtain accurate result due to color interference. Performed By: #### C BC, ADDONUAPLUS, ESR, CUU, CRP, CREAT #### [address] #### C4, C3 #### [facility] , pH,Urine Normal 5.0-9.0 [facility] Comment on above: Order Comment: Name Collection Type:: Clean-Voided Midstream Result Comment: Unab le to obtain accurate result due to color interference. Performed By: #### C BC, ADDONUAPLUS, ESR, CUU, CRP, CREAT #### [address] #### C4, C3 #### [facility] , Protein,Urine Normal Negative [facility] Comment on above: Order Comment: Name Collection Type:: Clean-Voided Midstream Result Comment: Unab le to obtain accurate result due to color interference. Performed By: #### C BC, ADDONUAPLUS, ESR, CUU, CRP, CREAT #### [address] #### C4, C3 #### [facility] , RBC,Urine 3-4 Normal 0-4 [facility] Comment on above: Order Comment: Name Collection Type:: Clean-Voided Midstream Performed By: #### C BC, ADDONUAPLUS, ESR, CUU, CRP, CREAT #### [place] [address] [place] #### C4, C3 #### [facility] , Specificy [place],Urine 1.028 Normal 1.001-1.030 [facility] Comment on above: Order Comment: Name Collection Type:: Clean-Voided Midstream Performed By: #### C BC, ADDONUAPLUS, ESR, CUU, CRP, CREAT #### [address] #### C4, C3 #### [facility] , Squamous Epithelial Cell,Urine 5-9 High 0-2 [facility] Comment on above: Order Comment: Name Collection Type:: Clean-Voided Midstream Performed By: #### C BC, ADDONUAPLUS, ESR, CUU, CRP, CREAT #### [address] #### C4, C3 #### [facility] , Urobilinogen,Urine Normal Normal [facility] Comment on above: Order Comment: Name Collection Type:: Clean-Voided Midstream Result Comment: Unab le to obtain accurate result due to color interference. Performed By: #### C BC, ADDONUAPLUS, ESR, CUU, CRP, CREAT #### [address] #### C4, C3 #### [facility] , WBC,Urine 50-100 High 0-4 [facility] Comment on above: Order Comment: Name Collection Type:: Clean-Voided Midstream Performed By: #### C BC, ADDONUAPLUS, ESR, CUU, CRP, CREAT #### [address] #### C4, C3 #### [facility] , Yeast,Urine Rare Critically abnormal None Seen [facility] Comment on above: Order Comment: Name Collection Type:: Clean-Voided Midstream Result Comment: PERF ORMED BY: [place] [address] PATHOLOGIST OYSTER UNLOADER KEYON SERNA M.D. Performed By: #### C BC, ADDONUAPLUS, ESR, CUU, CRP, CREAT #### [address] #### C4, C3 #### [facility] , Eosinophils Auto (Bld) [#/Vo l]Ordered By: Rashard Aguilar on 09-12-2023 Eosinophils (Bld) [#/Vol] 0.2 10*3/uL 0.0-0.45 [facility] Eosinophils/100 WBC Auto (Bl d)Ordered By: Rashard Aguilar on 09-12-2023 Eosinophils/100 WBC (Bld) 4.0 % . [facility] Erythrocyte Sedimentation Ra duyen 09-12-2023 ESR (Bld) [Velocity] 23 mm/h Normal 0-29 [facility] Comment on above: Result Comment: PERF ORMED BY: [place] [address] PATHOLOGIST OYSTER UNLOADER KEYON SERNA M.D. Performed By: #### C BC, ADDONUAPLUS, ESR, CUU, CRP, CREAT #### [place] [address] [place] #### C4, C3 #### [facility] , Erythrocyte distribution wid th Auto (RBC) [Ratio]Ordered By: Rashard Aguilar on 09-12-2023 Erythrocyte distribution width (RBC) [Ratio] 14.3 % 11.9-15.3 [facility] Erythrocyte sedimentation ra te by Photometric methodOrdered By: Rashard Aguilar on 09-12-2023 ESR Photometric method (Bld) [Velocity] 23 mm/hr 0-29 [facility] Hematocrit Auto (Bld) [Volum e fraction]Ordered By: Rashard Aguilar on 09-12-2023 Hematocrit (Bld) [Volume fraction] 39.2 % 34.0-46.4 [facility] Hemoglobin [Mass/volume] in BloodOrdered By: Rashard Aguilar on 09-12-2023 Hemoglobin (Bld) [Mass/Vol] 12.9 g/dL 11.8-15.4 [facility] Ketones Test strip (U) [Mass /Vol]Ordered By: Rashard Aguilar on 09-12-2023 Ketones (U) [Mass/Vol] See comment Negative [facility] Comment on above: Unable to obtain acc urate result due to color interference. Leukocytes [#/volume] correc edwige for nucleated erythrocytes in Blood by Automated counOrdered By: Rashard Aguilar on 09-12-2023 WBC corrected for nucl RBC Auto (Bld) [#/Vol] 5.7 10*3/uL 3.8-11.6 [facility] Lymphocytes Auto (Bld) [#/Vo l]Ordered By: Rashard Aguilar on 09-12-2023 Lymphocytes (Bld) [#/Vol] 1.8 10*3/uL 1.00-4.8 [facility] Lymphocytes/100 WBC Auto (Bl d)Ordered By: Rashard Aguilar on 09-12-2023 Lymphocytes/100 WBC (Bld) 31.9 % . [facility] MCH Auto (RBC) [Entitic mass ]Ordered By: Rashard Aguilar on 09-12-2023 MCH (RBC) [Entitic mass] 31.1 pg 24.7-34.3 [facility] MCHC Auto (RBC) [Mass/Vol]Or dered By: Rashard Aguilar on 09-12-2023 MCHC (RBC) [Mass/Vol] 33.0 g/dL 32.0-35.0 [facility] MCV Auto (RBC) [Entitic vol] Ordered By: Rashard Aguilar on 09-12-2023 MCV (RBC) [Entitic vol] 94.4 fL 80-100 [facility] Monocytes Auto (Bld) [#/Vol] Ordered By: Rashard Aguilar on 09-12-2023 Monocytes (Bld) [#/Vol] 0.5 10*3/uL 0.0-0.8 [facility] Monocytes/100 WBC Auto (Bld) Ordered By: Rashard Aguilar on 09-12-2023 Monocytes/100 WBC (Bld) 8.5 % . [facility] Neutrophils Auto (Bld) [#/Vo l]Ordered By: Rashard Aguilar on 09-12-2023 Neutrophils (Bld) [#/Vol] 3.1 10*3/uL 1.8-7.7 [facility] Neutrophils/100 WBC Auto (Bl d)Ordered By: Rashard Aguilar on 09-12-2023 Neutrophils/100 WBC (Bld) 54.8 % . [facility] No Panel InformationOrdered By: Rashard Aguilar on 09-12-2023 Estimated GFR (CKD-EPI) > 60.0 mL/Min [facility] Creatinine Clearance (Chem N/A [facility] Nucleated erythrocytes [Pres ence] in Blood by Automated countOrdered By: Rashard Aguilar on 09-12-2023 Nucleated RBC Auto Ql (Bld) 0.2 /100{WBC} 0-0.5 [facility] Platelet mean volume Auto (B ld) [Entitic vol]Ordered By: Rashard Aguilar on 09-12-2023 Platelet mean volume (Bld) [Entitic vol] 7.6 fL 6.3-10.7 [facility] Platelets Auto (Bld) [#/Vol] Ordered By: Rashard Aguilar on 09-12-2023 Platelets (Bld) [#/Vol] 263 10*3/uL 150-450 [facility] Protein Auto test strip (U) [Mass/Vol]Ordered By: Rashard Aguilar on 09-12-2023 Protein (U) [Mass/Vol] See comment Negative [facility] Comment on above: Unable to obtain acc urate result due to color interference. RBC Auto (Bld) [#/Vol]Ordere d By: Rashard gAuilar on 09-12-2023 RBC (Bld) [#/Vol] 4.16 10*6/uL 3.60-5.00 [facility] Urine Cultureon 09-12-2023 Bacteria identified Cx Nom (U) <9,000 colonies/ml mixed bacterial skin contaminants 2 Days PERFORMED BY: [place] [address] PATHOLOGIST OYSTER UNLOADER KEYON SERNA M.D. Normal [facility] Comment on above: Performed By: #### C BC, ADDONUAPLUS, ESR, CUU, CRP, CREAT #### [place] [address] [place] #### C4, C3 #### [facility] , Urine appearanceOrdered By: Rashard Aguilar on 09-12-2023 Appearance (U) Slightly cloudy Clear [facility] Urine bacteria detection by automated methodOrdered By: Rashard Aguilar on 09-12-2023 Bacteria Auto Ql (U) 2+ None Seen [facility] Urine colorOrdered By: Arthur Aguilar on 09-12-2023 Color (U) Plain [place]aling Yellow [facility] Urine glucose measurement by automated test strip (mass/volume)Ordered By: Rashard Aguilar on 09-12-2023 Glucose Auto test strip (U) [Mass/Vol] See comment Normal [facility] Comment on above: Unable to obtain acc urate result due to color interference. Urine leukocyte esterase det ection by automated test stripOrdered By: Rashard Aguilar on 09-12-2023 Leukocyte esterase Auto test strip Ql (U) See comment Negative [facility] Comment on above: Unable to obtain acc urate result due to color interference. Urine nitrite detection by a utomated test stripOrdered By: Rashard Aguilar on 09-12-2023 Nitrite Auto test strip Ql (U) See comment Negative [facility] Comment on above: Unable to obtain acc urate result due to color interference. Urobilinogen Test strip (U) [Mass/Vol]Ordered By: Rashard Aguilar on 09-12-2023 Urobilinogen (U) [Mass/Vol] See comment Normal [facility] Comment on above: Unable to obtain acc urate result due to color interference. WBC Auto (Bld) [#/Vol]Ordere d By: Rashard Aguilar on 09-12-2023 WBC (Bld) [#/Vol] 5.7 10*3/uL 3.8-11.6 [facility] Yeast detection in urine sed iment by light microscopyOrdered By: Rashard Aguilar on 09-12-2023 Yeast LM Ql (Urine sed) Rare [HPF] None Seen [facility] pH Auto test strip (U)Ordere d By: Rashard Aguilar on 09-12-2023 pH (U) See comment 5.0-9.0 [facility] Comment on above: Unable to obtain acc urate result due to color interference. Phone Visit- Telehealthon 09-02-2023 Phone Visit- Telehealth Start Time 11:30 am Stop Time 12:00 pm Chief Complaint Tea is spoken to via telephone as there were struggles with telehealth. Tea had a hard time connecting. Self Report Scales Tea is struggling as she is dealing with many stressors including whom has decided he will not be put on a donor list. Tea is dealing with higher amounts of anxiety. This is due to having to find another doctor on top of all of this. Tea left seeing former PCP will monitor on progress on Tea is making. Patient Reported Issues Dealing with high amounts of stress and is having stomach and bowel problems. CSSRS Risk Assessment Currently not suicidal at this time. Mental Status Exam Alert and Oriented X4 Mini Mental State Examination No qualifying data available. Diagnosis/Assessment/T reatment Plan 1. Complex posttraumatic stress disorder (F43.10: Post-traumatic stress disorder, unspecified) Psychotherapy Summary Tea was spoken to via telephone by clinician . Tea was struggling due to being out of Xanax which has been used for many years. Tea is dealing with major stressors, as she is trying to find another PCP. Tea had conflict with prior PCP. May be concerns of improper use of medication. Tea is dealing with husbands decisions to not be put on a donors list for kidney transplant . Tea is going to see a psychiatrist who may be able to prescribe medications. Uncertain of this time due to details. Clinician processed with Tea and set a time too be seen next week. Will check in to help alleviate further crisis. Therapist Intervention Crisis intervention, and trauma informed CBT. Patient Response Tea was thankful and will keep in touch until next session. Assessment and Plan Weekly as needed. Follow-up No qualifying data available Problem List/Past Medical History Ongoing Adjustment disorder with anxious mood Anemia Anxiety Atherosclerosis aorta Bladder stone BMI 29.0-29.9,adult CAD in [place] artery Disorder of vitamin D Essential hypertension [...] mg Tab, 0.5 mg= 1 tab(s), Oral, Daily, PRN amlodipine, Oral, Daily carvedilol, Oral ergocalciferol, 1250 mg, Oral hydroxychloroquine 200 mg Tab hyoscyamine 0.125 mg oral tablet, disintegrating, 0.125 mg= 1 tab(s), Oral, QID, 1 refills isosorbide mononitrate 30 mg ER Tab, 30 mg= 1 tab(s), Oral, qAM, 6 refills levothyroxine 100 mcg (0.1 mg) Tab, 100 mcg= 1 tab(s), Oral, Daily, 3 refills losartan 100 mg Tab ondansetron 4 mg Tab, 4 mg= 1 tab(s), Oral, q8hr, 1 refills phenazopyridine 200 mg Tab, 200 mg= 1 tab(s), Oral, TIDPC PLACARD, See Instructions PLACARD, See Instructions Proctofoam HC rectal foam, 1 elías, Rectal, TID sertraline 25 mg Tab, 25 mg= 1 tab(s), Oral, Daily, Not taking Allergies Compazine (unknown) Lipitor (unknown) VESIcare (unknown) Social History Tobacco Never (less than 100 in lifetime) Tobacco Use:. Never Smokeless Tobacco Use:., 06/22/2023 Family History Diabetes mellitus type 2: Father. Heart disease: Mother and Father. 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 She only started the medication after her heart attack and never exceeds the recommended dose. She visited [facility] due to elevated blood pressure and was checked out by a friend who is a retired nurse. She did not have a family doctor at the time. She sought help from [facility], which she does not find [...] has been treated by several doctors at [place] emergency room. Her nervous system has been [...] with voice recognition artificial intelligence software, specifically KochAbo, easy2map and or Cloudadmin. Substitutions may have occurred with voice recognition and artificial intelligence software. ATTESTATION: Documentation services were performed after patient or guardian consented to allow [employer] to record this visit. DARVIN donor services specialist and provider reviewed before signing. DARVIN: Padmini Cook. Follow-up No qualifying data available Problem List/Past Medical History Ongoing Adjustment disorder with anxious mood Anemia Anxiety Atherosclerosis aorta Bladder stone BMI 29.0-29.9,adult CAD in [place] artery Disorder of vitamin D Essential hypertension [...] Sciatica Procedu (more content not included)... Normal [facility] Comment on above: Result Comment: Elec tronically Signed By: Portillo PIPER, Rahul Varner\.br\Date and Time Signed: 08/27/23 20:52 EST\.br\Electronically Co-Signed By: Padmini Cook.br\Date and Time Co-Signed: 08/15/23 16:49 EST URINE CULTURE, ROUTINEon Bacteria identified Cx Nom (U) No growth at 48 hours Normal [facility] Comment on above: Performed By: #### L [id number] #### [facility] ([facility]) [address] [place] [address] Urinalysis - AUTOMATEDon Appearance (U) clear [employer] Other Bilirubin Ql (U) Negative [employer] Other Color (U) orange [employer] Other Glucose Ql (U) 100 [employer] Other Hemoglobin Ql (U) small [employer] Other Ketones Ql (U) Negative [employer] Other Leukocyte esterase Test strip Ql (U) large [employer] Other Nitrite Ql (U) Positive [employer] Other pH (U) 5.0 [pH] [employer] Other Protein Ql (U) 100 [employer] Other Specific gravity (U) [Rel density] 1.010 [employer] Other Urobilinogen (U) [Mass/Vol] 1.0 mg/dL [employer] Other Urinalysis - AUTOMATED No [employer] Other Urine Cultureon 08-17-2023 Bacteria identified Cx Nom (U) <9,000 colonies/ml mixed bacterial skin contaminants 2 Days PERFORMED BY: [facility] [address] [address] PATHOLOGIST OYSTER UNLOADER KEYON SERNA M.D. Normal [facility] Comment on above: Performed By: #### C BC, ADDONUAPLUS, ESR, CUU, CRP, CREAT #### [facility] [address] [place] [address] [place] #### C4, C3 #### [facility] , Bacteria identified Cx Nom (U) [employer] Other Urine culture routineOrdered By: Shayy Garza on 08-17-2023 Bacteria identified Cx Nom (U) 2 Days [facility] Physician Orderon 08-16-2023 Physician Order [id number]#1.0 0TIFF Normal [facility] Ambulatory Visit Summaryon 1 10-16-2022 Ambulatory [...] 11:00 AM EST With: Gem Mills Where: [facility] Monday 12:15 PM EDT With: Portillo PIPER, [...] aorta Bladder stone BMI 29.0-29.9,adult CAD in [place] artery Disorder of vitamin D Essential hypertension [...] for choosing us for your care. Normal [facility] Urinalysis - AUTOMATEDon Appearance (U) clear [employer] Other Bilirubin Ql (U) Negative [employer] Other Color (U) bright orange [employer] Other Glucose Ql (U) Negative [employer] Other Hemoglobin Ql (U) Negative [employer] Other Ketones Ql (U) Negative [employer] Other Leukocyte esterase Test strip Ql (U) small [employer] Other Nitrite Ql (U) Positive [employer] Other pH (U) 6.0 [pH] [employer] Other Protein Ql (U) Negative [employer] Other Specific gravity (U) [Rel density] >1.010 [employer] Other Urobilinogen (U) [Mass/Vol] 0.2 mg/dL [employer] Other Urinalysis - AUTOMATED No rt [employer] Other Urine Cultureon 08-01-2023 Bacteria identified Cx Nom (U) Reason for Exam Dysuria Urine Reason for Exam: Dysuria : Urine No Growth 2 Days PERFORMED BY: [facility] [address] [place] [address] PATHOLOGIST OYSTER UNLOADER KEYON SERNA M.D. [facility] Comment on above: Performed By: #### C BC, ADDONUAPLUS, ESR, CUU, CRP, CREAT #### [facility] [address] [id number] [facility] #### C4, C3 #### [facility] , Bacteria identified Cx Nom (U) [employer] Other Urine culture routineOrdered By: Mary Toure on 08-01-2023 Bacteria identified Cx Nom (U) No Growth 2 Days [facility] Outside Recordson 07-27-2023 Outside Records [id number]#1.0 0TIFF Normal [facility] Consultation Noteon 07-25-20 Consultation Note [id number]#1.0 0TIFF Normal [facility] ED Note-Physicianon 07-19-20 ED Note-Physician [id number]#1.0 0TIFF Normal [facility] RAD - MISCon 07-19-2023 RAD - MISC [id number] 0TIFF Normal [facility] Heart and Vascular Office/Cl inic Noteon 07-15-2023 [...] with voice recognition artificial intelligence software, specifically KochAbo, easy2map and or Dragon Ambient Experience. Substitutions may have occurred due to the inherent limitations of voice recognition and artificial intelligence software. ATTESTATION: Documentation services were performed after the patient or guardian consented to allow [employer] to record this visit. DARVIN donor services specialist and provider reviewed before signing. DARVIN: Veronica Fleming Follow-up No qualifying data available Problem List/Past Medical History Ongoing Anemia Anxiety Atherosclerosis aorta Bladder stone BMI 29.0-29.9,adult CAD in [place] artery Disorder of vitamin D Essential hypertension [...] mg T (more content not included)... Normal [facility] Comment on above: Result Comment: Elec tronically Signed By: Rahul Salas MD\.br\Date and Time Signed: 07/15/23 13:28 EST\.br\Electronically Co-Signed [...] her insurance companies. Her urologist is at [facility] in [place], [place], and they were having problems with [...] with voice recognition artificial intelligence software, specifically KochAbo, easy2map and or Cloudadmin. Substitutions may have occurred with voice recognition and artificial intelligence software. ATTESTATION: Documentation services were performed after patient or guardian consented to allow [employer] to record this visit. DARVIN donor services specialist and provider reviewed before signing. DARVIN: Ruben Bernal. Follow-up No qualifying data available Problem List/Past Medical History Ongoing Anemia Anxiety Atherosclerosis aorta Bladder stone BMI 29.0-29.9,adult CAD in [place] artery Depression Disorder of vitamin D Essential [...] oral table (more content not included)... Normal [facility] Comment on above: Result Comment: Elec tronically Signed By: Rahul Salas MD\.br\Date and Time Signed: 07/15/23 12:13 EST\.br\Electronically Co-Signed By: Ruben Bernal\.br\Date and Time Co-Signed: 05/26/23 12:49 EDT Consultation Noteon 07-06-20 Consultation Note [id number] TIFF Normal [facility] Consultation Noteon 07-03-20 Consultation Note [id number]#1.0 0TIFF [facility] Family Medicine Office/Clini c Noteon 06-27-2023 Family [...] it. She voiced her dissatisfaction with her fish seiner, having seen many but not finding one who would truly listen to her. She mentioned that one of them would just take blood samples every visit, making it difficult for her to communicate with him. She informed this fish seiner about a blood test for her bladder that revealed 100 stones, but he dismissed it. However, he later acknowledged that it did indeed occur. She expressed her desire to seek a different fish seiner due to these experiences. She states that [...] current use of opiate analgesic drug (Z79.891: FPC (c (more content not included)... [facility] Comment on above: Result Comment: Elec tronically Signed By: Anoop Almanzar MD\.br\Date and Time Signed: 06/27/23 08:27 EST\.br\Electronically Co-Signed By: Lucia Ramos\.br\Date and Time Co-Signed: 06/22/23 20:26 EDT Behavioral Health Sensitive Noteon 06-26-2023 Behavioral Health Sensitive Note Spoke with patient and she has decided to switch primary care physicians. Clinician has continued to offer services as needed. warehouse assembly worker will continue to monitor the situation. 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 Primary Care Physician - Yohan PIPER, Anoop Lal This Is Your Medications List Misc Prescription [...] Follow-Up Appointments Monday 9:30 AM EST Where: [facility] Heart and Vascular Office/Cl inic Noteon [...] her blood pressure. She consulted her regular newspaper photojournalist when her symptoms began. During the visit, she recalled an incident from 2 months ago when she felt chest pressure for a duration of 10 minutes. The newspaper photojournalist reassured her that her condition, including her blood pressure concern, was normal. Despite her open-heart surgery that took place on May 10, 2020, the newspaper photojournalist conveyed that the period since the procedure [...] up in 4 to 6 weeks in [place]. 1. Chest pain (R07.9: Chest pain, unspecified) Could represent angina we will order stress. We will also order echocardiogram 2. CAD in [place] artery (I25.10: Atherosclerotic heart disease of [place] coronary artery without angina pectoris) CAD: DAPT, beta-doretha, statin, risk factor modification. 3. HTN (hypertension) (I10: Essential (primary) hypertension) HTN: BP control with antihypertensives targeting blood pressure less than 130/80. If control is not currently achieved we will be adding additional antihypertensive or increasing dose. Stopping amlodipine Portions of this record may have been created with voice recognition artificial intelligence software, specifically Owingo (more content not included)... Normal [facility] Comment on above: Result Comment: Elec tronically Signed By: Portillo PIPER, Rahul Varner\.br\Date and Time Signed: 06/19/23 11:54 EDT\.br\Electronically Co-Signed By: Padmini Cook\.vic\Date and Time Co-Signed: 04/20/23 18:14 EDT Family Medicine Office/Clini c Noteon 06-06-2023 Family Medicine Office/Clinic Note HPI Staff Tea is a 77 year old female presenting for 3 month follow up for her controlled meds for anxiety and pain Pain characteristics: Pain location: generalized all over, fibro and OA Intensity:01/28 Onset: years Medication used: oxycodone acetaminophen Opioids [...] someone. She requires a refill of her Sidney prescription. She was advised not to take benzodiazepines, which include Xanax and the Sidney, simultaneously. She primarily uses Sidney to alleviate joint pain and arthritis symptoms. She mentions being diagnosed with lupus at the age of 35 [address] Torres in [place]. She also indicates that she is currently [...] will go ahead and send her to [facility] psychiatry to help with medications. 2. Primary fibromyalgia syndrome (M79.7: Fibromyalgia) We will refill the patient's Sidney for 1 month and we will see her back in a month. Discussed the pros and cons of using benzo and a narcotic at the same time. Patient understands the concerns. Patient has been a long-term user of the opioids and at this time is stable. 3. Long-term current use of opiate analgesic drug (Z79.891: buttermaker (current) use of opiate analgesic) As per # 2. 4. Irritable bowel syndrome (K58.9: Irritable bowel syndrome without diarrhea) (more content not included)... [facility] Comment on above: Result Comment: Elec tronically Signed By: Anoop Almanzar MD\.br\Date and Time Signed: 06/06/23 07:46 EDT\.br\Electronically Co-Signed By: Lucia Ramos\.br\Date and Time Co-Signed: 05/30/23 17:17 EDT Physician Orderon 06-02-2023 Physician Order [id number]#1.0 0TIFF [facility] Medication Consenton 023 Medication Consent [id number]#1.0 0TIFF [facility] Physician Referralon 023 Physician Referral [id number]#1. 00TIFF [facility] Ambulatory Visit Summaryon 1 Ambulatory Visit Summary [...] Portillo PIPER, Rahul Varner Where: [facility] [place] Monday 1:00 PM EDT With: [place] Where: [facility] [place] Monday 2:40 PM EST With: Anoop Almanzar MD Where: [facility] Invalid Interpretation Code [address] [place] [address]- \.br \ Someone Will Contact You Regarding These Appointments \.br\ [facility] External Ambulatory Referral, Psychiatry, Community health services in [place]., 05/30/23 14:54:00 EDT, Anxiety [facility] Pre-Visit Planningon 023 Pre-Visit Planning - From: Yuliya ORTEZ, Kim To: Yohan PIPER, Anoop Lal; Sent: 05/29/2023 13:24:19 EDT Subject: Pre-Visit Planning Due Date/Time: 05/29/2023 13:24:00 EDT Caller Name: TEA RAHMAN; Caller Number: Olga Lidia , M Ca Dr. Almanzar, *Based on your response below, can you please update the chronic problem list and address during this visit if appropriate?* During a pre-visit planning chart review, I noted the following documentation in the medical record: Current medications: Hydroxychloroquine 12/21/2022 office note-When the patient was diagnosed with lupus, she was referred to a fish seiner in [place]. She tried a different fish seiner in [place] where she stayed until that provider retired. Since then, she has been to 3 or 4 rheumatologists. Right now she is followed by Dr. Aguilar who she likes. While other specialists have denied her lupus diagnosis, Dr. Aguilar treats her with hydroxychloroquine. Patient feels that her lupus is well managed. When she does have a lupus flare-up, she will feel very fatigued. 03/20/2023 office note- has a fish seiner not working out for her wants to find a new one needs her proctofoam refilled for the hemorrhoids and also dr santana gave her hyoscamine for blow outs but refills ran out as she doesn't use all the time, can she get more recent phq9-15 recent leanne-15 urine collected and processed 03/21/2023 [facility] page 1 has major depressive disorder single episode mild and systemic lupus erythematosus 03/28/2023 office note-Patient is taking half a tablet of Sidney twice daily and steroids for her fibromyalgia, lupus, and arthritis. She reports continued pain in her shoulders and upper back. She was unable to receive epidural in the sciatic nerve due to miscommunication regarding the appointment. She requests prescription of hydroxychloroquine to take as needed for flares. She is looking for a fish seiner. Based on your medical judgment, can you [...] feel free to contact me at extension [phone]. Thank you! Kim Dwyer, SUREKHAN, RN, CCM, CCDS, CCDS-O Invalid Interpretation Code [address] [facility] Pre-Visit Planning - From: Yuliya ORTEZ, Kim To: Yohan PIPER, Anoop Lal; Sent: 05/29/2023 13:16:19 EDT Subject: Pre-Visit Planning Due Date/Time: 05/29/2023 13:16:00 EDT Caller Name: TEA RAHMAN; Caller Number: , Ca Dr. Almanzar, *Based on your response below, [...] as well as the Xanax PRN. 03/21/2023 [facility] page 1 has major depressive [...] feel free to contact me at extension [phone]. Thank you! Kim Dwyer, SUREKHAN, RN, CCM, CCDS, CCDS-O Invalid Interpretation Code Pat Quiñones [facility] Physician Orderon 05-26-2023 Physician Order [id number]#1. 00TIFF Normal [facility] NM Myocardial Spect Rest/Str ess 1 [...] PIPER, Rahul Varner Transcribed by: courtney Technologist: CHIRS Technical Comments Rest Dose (mCi Tc99m Cardiolite): 10.9 Stress Dose (mCi Tc99M Cardiolite): 30.0 [facility] Stress EKG Tracingson 2022 Stress EKG Tracings [id number]#1. 00CD:127 [facility] Consent for Treatmenton 04-22 Consent for Treatment [id number]#1.0 0CD:127 [facility] Consent for Treatmenton 04-21 Consent for Treatment [id number]#1.0 0CD:127 [facility] Consultation Noteon 05-08-20 Consultation Note [id number]#1.0 0CD:127 [facility] Consultation Note [id number]#1.00 CD:127 [facility] Urine Cultureon 05-04-2023 Bacteria identified Cx Nom (U) Reason for Exam Dysuria Urine 50,000 colonies/ml mixed bacterial skin contaminants 2 Days PERFORMED BY: [place] [address] PATHOLOGIST OYSTER UNLOADER KEYON SERNA M.D. [facility] Comment on above: Performed By: #### C UU #### [address] Physician Orderon 04-21-2023 Physician Order [id number]#1.0 0CD:127 [facility] Physician Referralon 023 Physician Referral [id number]#1. 00CD:127 [facility] Family Medicine Office/Clini c Noteon 04-17-2023 Family [...] Norvasc. Patient will follow-up with cardiology. Ordered: [facility] Internal Ambulatory Referral 2. Post-nasal drip (R09.82: Postnasal drip) ? We will have the patient try the Zyrtec again. Discussed how the Zyrtec I do not believe is actually messing with her stomach but more the mucus. Ordered: [facility] Internal Ambulatory Referral 3. CAD in [place] artery (I25.10: Atherosclerotic heart disease of [place] coronary artery without angina pectoris) ? We will send to cardiology for further recommendations. Ordered: [facility] Internal Ambulatory Referral 4. BMI 28.0-28.9,adult (Z68.28: Body mass index [BMI] 28.0-28.9, adult) BMI education given. Ordered: Body Mass Index (BMI) documented 3008F Current tobacco non-user 1036F Depression Screening Negative 3352F [facility] Internal Ambulatory Referral Most recent diastolic blood pressure <80 mm Hg 3078F Patient screen for fall risk: no falls in last year or 1 fall with no injury in last year 1101F Systolic BP <130 mm Hg (Most Recent) 3074F 5. Overweight (E66.3: Overweight) As above. Ordered: Body Mass Index (BMI) documented 3008F Current tobacco non-user 1036F Depression Screening Negative 3352F [facility] Internal Ambulatory Referral Most recent diastolic blood pressure <80 mm Hg 3078F Patient screen for fall risk: no falls in last year or 1 fall with no injury in last year 1101F Systolic BP <130 mm Hg (Most Recent) 3074F Follow-up No qualifying data available Problem List/Past Medical History Ongoing Anemia Anxiety Atherosclerosis aorta Bladder stone BMI 29.0-29.9,adult CAD in [place] artery Depression Disorder of vitamin D Essential [...] Allergies Compazine (more content not included)... Normal [facility] Comment on above: Result Comment: Elec tronically Signed By: Yohan PIPER, Anoop Gómez.br\Date and Time Signed: 04/17/23 18:28 EDT Consultation Noteon 04-12-20 Consultation Note [id number]#1.0 0CD:127 Normal [facility] Consultation Note [id number] 0CD:127 Normal [facility] Family Medicine Office/Clini c Noteon 03-29-2023 Family [...] Patient is taking half a tablet of Sidney twice daily and steroids for her fibromyalgia, lupus, and arthritis. She reports continued pain in her shoulders and upper back. She was unable to receive epidural in the sciatic nerve due to miscommunication regarding the appointment. She requests prescription of hydroxychloroquine to take as needed for flares. She is looking for a fish seiner. The adult male reports the patient presented [...] well controlled with a half of a Sidney a day. 3. Long-term current use of opiate analgesic drug (Z79.891: FPC (current) use of opiate analgesic) As above. 4. BMI 28.0-28.9,adult (Z68.28: Body mass index [BMI] 28.0-28.9, adult) BMI education given. 5. OA - Osteoarthritis of knee (M17.10: Unilateral primary osteoarthritis, unspecified knee) Again, patient uses the steroids to help and patient is doing well with the use of half a Sidney twice a day. 6. Overweight (E66.3: Overweight) [...] with voice recognition artificial intelligence software, specifically KochAbo, easy2map and or Cloudadmin. Substitutions may have occurred due to the inher (more content not included)... [facility] Comment on above: Result Comment: Elec tronically Signed By: Anoop Almanzar MD\.br\Date and Time Signed: 03/29/23 09:38 EDT\.br\Electronically Co-Signed By: Lucia Ramos\.br\Date and Time Co-Signed: 03/28/23 19:25 EDT RAD - MISCon 03-29-2023 RAD - MIS [id number] 0CD:127 [facility] Ambulatory Visit Summaryon 0 03-28-2023 Ambulatory [...] PM EDT With: Anoop Almanzar MD Where: [facility] Ambulatory Visit Summary TEA RAHMAN :1945 [...] PM EDT With: Anoop Almanzar MD Where: [facility] RAD - MISCon 03-21-2023 [facility] [id number]#1.0 0CD:127 [facility] Ambulatory Visit Summaryon 0 03-20-2023 Ambulatory Visit Summary AVISHAANDA Jo :1945 Visit Date:03/20/2023 Ambulatory Visit Instructions Your Diagnosis Abdominal pain Primary fibromyalgia syndrome BMI 29.0-29.9,adult Over weight Tests Performed Urnls Dip Stick Non-Auto w/o Micrscpy POC 60689 Your Care Team Attending Physician - Anoop [...] EDT With: Yohan PIPER, Anoop Lal Where: [facility] Medicine Office/Clini c Noteon 03-20-2023 Family Medicine [...] wasn't formed does have hemorrhoids has a fish seiner not working out for her wants to [...] ProctoFoam for Hemorrhoids - Would like another fish seiner. Review of Systems PHQ Score Initial Depression [...] Urnls Dip Stick Non-Auto w/o Micrscpy POC 74472 2. Primary fibromyalgia syndrome (M79.7: Fibromyalgia) - Will do a small steroid burst. - Then when patient finds a better Title Manager we will refer Ordered: methylPREDNISolone, = 1 packet(s), Oral, As Directed, as directed on package labeling, X 6 day(s), # 21 tab(s), Refills(s) 0, Pharmacy: [facility] #[id number], 167, cm, 03/20/23 11:45:00 EDT, Height/Length Dosing, 80.9, kg, 03/20/23 11:45:00 EDT, Weight Dosing 3. Hemorrhoids (K64.9: Unspecified hemorrhoids) - Proctofoam 4. BMI 29.0-29.9,adult (Z68.29: Body mass index [BMI] 29.0-29.9, adult) - BMI education given Ordered: methylPREDNISolone, = 1 packet(s), Oral, As Directed, as directed on package labeling, X 6 day(s), # 21 tab(s), Refills(s) 0, Pharmacy: [facility] #74783, 167, cm, 03/20/23 11:45:00 EDT, Height/Length Dosing, [...] day(s), # 21 tab(s), Refills(s) 0, Pharmacy: [facility] #68538, 167, cm, 03/20/23 11:45:00 EDT, Height/Length Dosing, [...] elías, Rectal, TID, 10 gram, Refill(s) 0, [facility] #42751, 167, cm, 03/20/23 11:45:00 EDT, Height/Length Dosing, [...] acetaminophen-hydrocod one (more content not included)... Normal [facility] Comment on above: Result Comment: Elec tronically Signed By: Yohan PIPER, Anoop Gómez.br\Date and Time Signed: 03/20/23 12:22 EDT Consultation Noteon 03-09-20 Consultation Note [id number]#1.0 0CD:127 Normal [facility] XR chest 2V*on 03-02-2023 XR chest 2V* [facility] [place] [address] [place] [address] XRay Report Signed Patient: Tea Rahman MR#: [id number] : 1945 Acct:[id number] Age/Sex: 77 / F ADM Date: 03/02/23 Loc: ICXD Room: Type: [facility] Attending Dr: Rashard Aguilar MD Copies to: Rashard Aguilar MD Ordering Provider: Rashard Aguilar MD Date of Service: 03/02/23 XR/XR chest [...] Zen Yo M.D.03/02/2023 4:11 PM Dictation Location: [place] [address] Transcribed By: [facility] 03/02/23 161 Dictated By: Zen Yo DO 03/02/23 161 Signed By: 03/02/23 161 Normal [facility] Consultation Noteon 02-07-20 Consultation Note [id number]#1.0 0CD:127 Normal [facility] Amorphous urine sedimentOrde red By: Rashard Aguilar on 01-24-2023 Amorphous sediment LM Ql (Urine sed) See comment Negative [facility] Comment on above: Unable to obtain acc urate result due to color interference. Automated epithelial cells c ount in urine sediment (number/area)Ordered By: Rashard Aguilar on 01-24-2023 Epithelial cells Auto (Urine sed) [#/Area] 5-9 [HPF] 0-2 [facility] Automated erythrocytes count in urine sediment (number/area)Ordered By: Rashard Aguilar on 01-24-2023 RBC Auto (Urine sed) [#/Area] None seen [HPF] 0-4 [facility] Automated leukocytes count i n urine sediment (number/area)Ordered By: Rashard Aguilar on 01-24-2023 WBC Auto (Urine sed) [#/Area] 5-9 [HPF] 0-4 [facility] Automated urine specific gra vity by refractometryOrdered By: Rashard Aguilar on 01-24-2023 Specific gravity Refractometry automated (U) [Rel density] 1.015 1.001-1.030 [facility] Basophils Auto (Bld) [#/Vol] Ordered By: Rashard Aguilar on 01-24-2023 Basophils (Bld) [#/Vol] 0.0 10*3/uL 0.0-0.2 [facility] Basophils/100 WBC Auto (Bld) Ordered By: [place] Lauren on 01-24-2023 Basophils/100 WBC (Bld) 0.5 % . [facility] Bilirubin Auto test strip Ql (U)Ordered By: Rashard Aguilar on 01-24-2023 Bilirubin Ql (U) See comment Negative [facility] Comment on above: Unable to obtain acc urate result due to color interference. C reactive protein [Mass/vol ume] in Serum or PlasmaOrdered By: Rashard Aguilar on 01-24-2023 CRP [Mass/Vol] 0.6 mg/dL 0.0-0.5 [facility] C-Reactive Proteinon 023 C-Reactive Protein 0.6 mg/dL High 0.0-0.5 [facility] Comment on above: Result Comment: PERF ORMED BY: [place] [address] PATHOLOGIST OYSTER UNLOADER KEYON SERNA M.D. Performed By: #### C BC, ADDONUAPLUS, ESR, CUU, CRP, CREAT #### [place] [address] [place] #### C4, C3 #### [facility] , Complement C3on 01-24-2023 Complement C3 162 mg/dL Normal 82-167 [facility] Comment on above: Result Comment: Perf ormed at: - [facility] [address] [place] [id number] Backing In Machine Tender: Paul Dumont PhD, Phone: [phone] Performed By: #### C BC, ADDONUAPLUS, ESR, CUU, CRP, CREAT #### [address] #### C4, C3 #### [facility] , Complement C4on 01-24-2023 Complement C4 36 mg/dL Normal 12-38 [facility] Comment on above: Result Comment: PERF ORMED BY: [place] [address] PATHOLOGIST OYSTER UNLOADER KEYON SERNA M.D. Performed By: #### C BC, ADDONUAPLUS, ESR, CUU, CRP, CREAT #### [address] #### C4, C3 #### [facility] , Complete Blood Count Auto Di ffon 01-24-2023 Basophils (Bld) [#/Vol] 0.0 10*3/uL Normal 0.0-0.2 [facility] Comment on above: Performed By: #### C BC, ADDONUAPLUS, ESR, CUU, CRP, CREAT #### [address] #### C4, C3 #### [facility] , Basophils/100 WBC (Bld) 0.5 % Normal . [facility] Comment on above: Performed By: #### C BC, ADDONUAPLUS, ESR, CUU, CRP, CREAT #### [address] #### C4, C3 #### [facility] , Eosinophils (Bld) [#/Vol] 0.2 10*3/uL Normal 0.0-0.45 [facility] Comment on above: Performed By: #### C BC, ADDONUAPLUS, ESR, CUU, CRP, CREAT #### [place] [address] [place] #### C4, C3 #### [facility] , Eosinophils/100 WBC (Bld) 3.3 % Normal . [facility] Comment on above: Performed By: #### C BC, ADDONUAPLUS, ESR, CUU, CRP, CREAT #### [place] [address] [place] #### C4, C3 #### [facility] , Erythrocyte distribution width (RBC) [Ratio] 14.2 % Normal 11.9-15.3 [facility] Comment on above: Performed By: #### C BC, ADDONUAPLUS, ESR, CUU, CRP, CREAT #### [address] #### C4, C3 #### [facility] , Hematocrit (Bld) [Volume fraction] 40.7 % Normal 34.0-46.4 [facility] Comment on above: Performed By: #### C BC, ADDONUAPLUS, ESR, CUU, CRP, CREAT #### [place] [address] [place] #### C4, C3 #### [facility] , Hemoglobin (Bld) [Mass/Vol] 13.2 g/dL Normal 11.8-15.4 [facility] Comment on above: Performed By: #### C BC, ADDONUAPLUS, ESR, CUU, CRP, CREAT #### [place] [address] [place] #### C4, C3 #### [facility] , Lymphocytes (Bld) [#/Vol] 1.9 10*3/uL Normal 1.00-4.8 [facility] Comment on above: Performed By: #### C BC, ADDONUAPLUS, ESR, CUU, CRP, CREAT #### [place] [address] [place] #### C4, C3 #### [facility] , Lymphocytes/100 WBC (Bld) 30.8 % Normal . [facility] Comment on above: Performed By: #### C BC, ADDONUAPLUS, ESR, CUU, CRP, CREAT #### [address] #### C4, C3 #### [facility] , MCH (RBC) [Entitic mass] 29.5 pg Normal 24.7-34.3 [facility] Comment on above: Performed By: #### C BC, ADDONUAPLUS, ESR, CUU, CRP, CREAT #### [address] #### C4, C3 #### [facility] , MCV (RBC) [Entitic vol] 90.9 fL Normal 80-100 [facility] Comment on above: Performed By: #### C BC, ADDONUAPLUS, ESR, CUU, CRP, CREAT #### [address] #### C4, C3 #### [facility] , Mean Corpuscular HGB Conc 32.5 g/dL Normal 32.0-35.0 [facility] Comment on above: Performed By: #### C BC, ADDONUAPLUS, ESR, CUU, CRP, CREAT #### [place] [address] [place] #### C4, C3 #### [facility] , Monocytes (Bld) [#/Vol] 0.4 10*3/uL Normal 0.0-0.8 [facility] Comment on above: Performed By: #### C BC, ADDONUAPLUS, ESR, CUU, CRP, CREAT #### [place] [address] [place] #### C4, C3 #### [facility] , Monocytes/100 WBC (Bld) 7.1 % Normal . [facility] Comment on above: Performed By: #### C BC, ADDONUAPLUS, ESR, CUU, CRP, CREAT #### [facility] [address] [place] [address] [place] #### C4, C3 #### [facility] , Neutrophils (Bld) [#/Vol] 3.7 10*3/uL Normal 1.8-7.7 [facility] Comment on above: Performed By: #### C BC, ADDONUAPLUS, ESR, CUU, CRP, CREAT #### [facility] [address] [place] [address] [place] #### C4, C3 #### [facility] , Neutrophils/100 WBC (Bld) 58.3 % Normal . [facility] Comment on above: Performed By: #### C BC, ADDONUAPLUS, ESR, CUU, CRP, CREAT #### [facility] [address] [place] [address] [place] #### C4, C3 #### [facility] , NRBC% 0.1 /100{WBC} Normal 0-0.5 [facility] Comment on above: Performed By: #### C BC, ADDONUAPLUS, ESR, CUU, CRP, CREAT #### [facility] [address] [place] [address] [place] #### C4, C3 #### [facility] , Platelet mean volume (Bld) [Entitic vol] 7.3 fL Normal 6.3-10.7 [facility] Comment on above: Performed By: #### C BC, ADDONUAPLUS, ESR, CUU, CRP, CREAT #### [facility] [address] [place] [address] [place] #### C4, C3 #### [facility] , Platelets (Bld) [#/Vol] 239 10*3/uL Normal 150-450 [facility] Comment on above: Performed By: #### C BC, ADDONUAPLUS, ESR, CUU, CRP, CREAT #### [facility] [address] [place] [address] [place] #### C4, C3 #### [facility] , RBC (Bld) [#/Vol] 4.48 10*6/uL Normal 3.60-5.00 [facility] Comment on above: Performed By: #### C BC, ADDONUAPLUS, ESR, CUU, CRP, CREAT #### [place] [address] [place] #### C4, C3 #### [facility] , WBC (Bld) [#/Vol] 6.3 10*3/uL Normal 3.8-11.6 [facility] Comment on above: Performed By: #### C BC, ADDONUAPLUS, ESR, CUU, CRP, CREAT #### [place] [address] [place] #### C4, C3 #### [facility] , Creatinineon 01-24-2023 Creatinine [Mass/Vol] 0.96 mg/dL Normal 0.60-1.20 [facility] Comment on above: Performed By: #### C BC, ADDONUAPLUS, ESR, CUU, CRP, CREAT #### [place] [address] [place] #### C4, C3 #### [facility] , GFR/1.73 sq M.predicted MDRD (S/P/Bld) [Vol rate/Area] mL/min/{1.73_m2} Normal [facility] Comment on above: Performed By: #### C BC, ADDONUAPLUS, ESR, CUU, CRP, CREAT #### [facility] [address] [place] [address] [place] #### C4, C3 #### [facility] , Creatinine [Mass/volume] in Serum or PlasmaOrdered By: Rashard Aguilar on 01-24-2023 Creatinine [Mass/Vol] 0.96 mg/dL 0.60-1.20 [facility] Dipstick and Microscopicon 0 01-24-2023 Appearance (U) Slightly Cloudy Critically abnormal Clear [facility] Comment on above: Order Comment: Name Collection Type:: Clean-Voided Midstream Performed By: #### C BC, ADDONUAPLUS, ESR, CUU, CRP, CREAT #### [address] #### C4, C3 #### [facility] , Bacteria,Urine 1+ High None Seen [facility] Comment on above: Order Comment: Name Collection Type:: Clean-Voided Midstream Performed By: #### C BC, ADDONUAPLUS, ESR, CUU, CRP, CREAT #### [address] #### C4, C3 #### [facility] , Bilirubin,Urine Normal Negative [facility] Comment on above: Order Comment: Name Collection Type:: Clean-Voided Midstream Result Comment: Unab le to obtain accurate result due to color interference. Performed By: #### C BC, ADDONUAPLUS, ESR, CUU, CRP, CREAT #### [address] #### C4, C3 #### [facility] , Color (U) [place] Critically abnormal Yellow [facility] Comment on above: Order Comment: Name Collection Type:: Clean-Voided Midstream Performed By: #### C BC, ADDONUAPLUS, ESR, CUU, CRP, CREAT #### [place] [address] [place] #### C4, C3 #### [facility] , Glucose Ql (U) Normal Normal [facility] Comment on above: Order Comment: Name Collection Type:: Clean-Voided Midstream Result Comment: Unab le to obtain accurate result due to color interference. Performed By: #### C BC, ADDONUAPLUS, ESR, CUU, CRP, CREAT #### [place] [address] [place] #### C4, C3 #### [facility] , Ketones Ql (U) Normal Negative [facility] Comment on above: Order Comment: Name Collection Type:: Clean-Voided Midstream Result Comment: Unab le to obtain accurate result due to color interference. Performed By: #### C BC, ADDONUAPLUS, ESR, CUU, CRP, CREAT #### [place] [address] [place] #### C4, C3 #### [facility] , Leukocyte esterase Test strip Ql (U) Normal Negative [facility] Comment on above: Order Comment: Name Collection Type:: Clean-Voided Midstream Result Comment: Unab le to obtain accurate result due to color interference. Performed By: #### C BC, ADDONUAPLUS, ESR, CUU, CRP, CREAT #### [place] [address] [place] #### C4, C3 #### [facility] , Nitrite,Urine Normal Negative [facility] Comment on above: Order Comment: Name Collection Type:: Clean-Voided Midstream Result Comment: Unab le to obtain accurate result due to color interference. Performed By: #### C BC, ADDONUAPLUS, ESR, CUU, CRP, CREAT #### [place] [address] [place] #### C4, C3 #### [facility] , Occult Blood,Urine Normal Negative [facility] Comment on above: Order Comment: Name Collection Type:: Clean-Voided Midstream Result Comment: Unab le to obtain accurate result due to color interference. Performed By: #### C BC, ADDONUAPLUS, ESR, CUU, CRP, CREAT #### [place] [address] [place] #### C4, C3 #### [facility] , pH,Urine Normal 5.0-9.0 [facility] Comment on above: Order Comment: Name Collection Type:: Clean-Voided Midstream Result Comment: Unab le to obtain accurate result due to color interference. Performed By: #### C BC, ADDONUAPLUS, ESR, CUU, CRP, CREAT #### [address] #### C4, C3 #### [facility] , Protein,Urine Normal Negative [facility] Comment on above: Order Comment: Name Collection Type:: Clean-Voided Midstream Result Comment: Unab le to obtain accurate result due to color interference. Performed By: #### C BC, ADDONUAPLUS, ESR, CUU, CRP, CREAT #### [address] #### C4, C3 #### [facility] , RBC,Urine None Seen Normal 0-4 [facility] Comment on above: Order Comment: Name Collection Type:: Clean-Voided Midstream Performed By: #### C BC, ADDONUAPLUS, ESR, CUU, CRP, CREAT #### [address] #### C4, C3 #### [facility] , Specificy [place],Urine 1.015 Normal 1.001-1.030 [facility] Comment on above: Order Comment: Name Collection Type:: Clean-Voided Midstream Performed By: #### C BC, ADDONUAPLUS, ESR, CUU, CRP, CREAT #### [address] #### C4, C3 #### [facility] , Squamous Epithelial Cell,Urine 5-9 High 0-2 [facility] Comment on above: Order Comment: Name Collection Type:: Clean-Voided Midstream Performed By: #### C BC, ADDONUAPLUS, ESR, CUU, CRP, CREAT #### [address] [address] [place] #### C4, C3 #### [facility] , Urobilinogen,Urine Normal Normal [facility] Comment on above: Order Comment: Name Collection Type:: Clean-Voided Midstream Result Comment: Unab le to obtain accurate result due to color interference. Performed By: #### C BC, ADDONUAPLUS, ESR, CUU, CRP, CREAT #### [facility] [address] [place] [address] #### C4, C3 #### [facility] , WBC,Urine 5-9 High 0-4 [facility] Comment on above: Order Comment: Name Collection Type:: Clean-Voided Midstream Performed By: #### C BC, ADDONUAPLUS, ESR, CUU, CRP, CREAT #### [address] #### C4, C3 #### [facility] , Yeast,Urine 3+ Critically abnormal None Seen [facility] Comment on above: Order Comment: Name Collection Type:: Clean-Voided Midstream Result Comment: PERF ORMED BY: [place] [address] PATHOLOGIST OYSTER UNLOADER KEYON SERNA M.D. Performed By: #### C BC, ADDONUAPLUS, ESR, CUU, CRP, CREAT #### [facility] [address] [place] [address] #### C4, C3 #### [facility] , Eosinophils Auto (Bld) [#/Vo l]Ordered By: Rashard Aguilar on 01-24-2023 Eosinophils (Bld) [#/Vol] 0.2 10*3/uL 0.0-0.45 [facility] Eosinophils/100 WBC Auto (Bl d)Ordered By: Rashard Aguilar on 01-24-2023 Eosinophils/100 WBC (Bld) 3.3 % . [facility] Erythrocyte Sedimentation Ra duyen 01-24-2023 ESR (Bld) [Velocity] 38 mm/h High 0-29 [facility] Comment on above: Result Comment: PERF ORMED BY: [facility] [address] [place] [address] PATHOLOGIST OYSTER UNLOADER KEYON SERNA M.D. Performed By: #### C BC, ADDONUAPLUS, ESR, CUU, CRP, CREAT #### [facility] [address] [place] [address] [place] #### C4, C3 #### [facility] , Erythrocyte distribution wid th Auto (RBC) [Ratio]Ordered By: Rashard Aguilar on 01-24-2023 Erythrocyte distribution width (RBC) [Ratio] 14.2 % 11.9-15.3 [facility] Erythrocyte sedimentation ra te by Photometric methodOrdered By: Rashard Aguilar on 01-24-2023 ESR Photometric method (Bld) [Velocity] 38 mm/hr 0-29 [facility] Hematocrit Auto (Bld) [Volum e fraction]Ordered By: Rashard Aguilar on 01-24-2023 Hematocrit (Bld) [Volume fraction] 40.7 % 34.0-46.4 [facility] Hemoglobin [Mass/volume] in BloodOrdered By: Rashard Aguilar on 01-24-2023 Hemoglobin (Bld) [Mass/Vol] 13.2 g/dL 11.8-15.4 [facility] Ketones Test strip (U) [Mass /Vol]Ordered By: Rashard Aguilar on 01-24-2023 Ketones (U) [Mass/Vol] See comment Negative [facility] Comment on above: Unable to obtain acc urate result due to color interference. Leukocytes [#/volume] correc edwige for nucleated erythrocytes in Blood by Automated counOrdered By: Rashard Aguilar on 01-24-2023 WBC corrected for nucl RBC Auto (Bld) [#/Vol] 6.3 10*3/uL 3.8-11.6 [facility] Lymphocytes Auto (Bld) [#/Vo l]Ordered By: Rashard Aguilar on 01-24-2023 Lymphocytes (Bld) [#/Vol] 1.9 10*3/uL 1.00-4.8 [facility] Lymphocytes/100 WBC Auto (Bl d)Ordered By: Rashard Aguilar on 01-24-2023 Lymphocytes/100 WBC (Bld) 30.8 % . [facility] MCH Auto (RBC) [Entitic mass ]Ordered By: Rashard Aguilar on 01-24-2023 MCH (RBC) [Entitic mass] 29.5 pg 24.7-34.3 [facility] MCHC Auto (RBC) [Mass/Vol]Or dered By: Rashard Aguilar on 01-24-2023 MCHC (RBC) [Mass/Vol] 32.5 g/dL 32.0-35.0 [facility]ir [facility] MCV Auto (RBC) [Entitic vol] Ordered By: Rashard Aguilar on 01-24-2023 MCV (RBC) [Entitic vol] 90.9 fL 80-100 [facility] Monocytes Auto (Bld) [#/Vol] Ordered By: Rashard Aguilar on 01-24-2023 Monocytes (Bld) [#/Vol] 0.4 10*3/uL 0.0-0.8 [facility] Monocytes/100 WBC Auto (Bld) Ordered By: Rashard Aguilar on 01-24-2023 Monocytes/100 WBC (Bld) 7.1 % . [facility] Neutrophils Auto (Bld) [#/Vo l]Ordered By: Rashard Aguilar on 01-24-2023 Neutrophils (Bld) [#/Vol] 3.7 10*3/uL 1.8-7.7 [facility] Neutrophils/100 WBC Auto (Bl d)Ordered By: Rashard Aguilar on 01-24-2023 Neutrophils/100 WBC (Bld) 58.3 % . [facility] No Panel InformationOrdered By: Rashard Aguilar on 01-24-2023 Estimated GFR (CKD-EPI) > 60.0 mL/Min [facility] Creatinine Clearance (Chem N/A [facility] Nucleated erythrocytes [Pres ence] in Blood by Automated countOrdered By: Rashard Aguilar on 01-24-2023 Nucleated RBC Auto Ql (Bld) 0.1 /100{WBC} 0-0.5 [facility] Platelet mean volume Auto (B ld) [Entitic vol]Ordered By: Rashard Aguilar on 01-24-2023 Platelet mean volume (Bld) [Entitic vol] 7.3 fL 6.3-10.7 [facility] Platelets Auto (Bld) [#/Vol] Ordered By: Rashard Aguilar on 01-24-2023 Platelets (Bld) [#/Vol] 239 10*3/uL 150-450 [facility] Protein Auto test strip (U) [Mass/Vol]Ordered By: Rashrad Aguilar on 01-24-2023 Protein (U) [Mass/Vol] See comment Negative [facility] Comment on above: Unable to obtain acc urate result due to color interference. RBC Auto (Bld) [#/Vol]Ordere d By: Rashard Aguilar on 01-24-2023 RBC (Bld) [#/Vol] 4.48 10*6/uL 3.60-5.00 [facility] Serum or plasma complement C 3 measurement (mass/volume)Ordered By: Rashard Aguilar on 01-24-2023 Complement C3 [Mass/Vol] 162 mg/dL 82-167 [facility] Comment on above: Performed at: [address] Director: Paul Dumont PhD, Phone: [phone] Serum or plasma complement C 4 measurement (mass/volume)Ordered By: Rashard Aguilar on 01-24-2023 Complement C4 [Mass/Vol] 36 mg/dL 12-38 [facility] Urine Cultureon 01-24-2023 Bacteria identified Cx Nom (U) ORGANISM: Ghazal glabrata (O:CANGLA) [place] Count 20,000 PERFORMED BY: [place] [address] PATHOLOGIST OYSTER UNLOADER KEYON SERNA M.D. Normal [facility] Comment on above: Performed By: #### C BC, ADDONUAPLUS, ESR, CUU, CRP, CREAT #### [place] [address] [place] #### C4, C3 #### [facility] , Urine appearanceOrdered By: Rashard Aguilar on 01-24-2023 Appearance (U) Slightly cloudy Clear [facility] Urine bacteria detection by automated methodOrdered By: Rashard Aguilar on 01-24-2023 Bacteria Auto Ql (U) 1+ None Seen [facility] Urine colorOrdered By: Arthur Aguilar on 01-24-2023 Color (U) Plain [place]aling Yellow [facility] Urine culture routineOrdered By: Rashard Aguilar on 01-24-2023 Bacteria identified Cx Nom (U) Ghazal glabrata [facility] Urine glucose measurement by automated test strip (mass/volume)Ordered By: Rahsard Aguilar on 01-24-2023 Glucose Auto test strip (U) [Mass/Vol] See comment Normal [facility] Comment on above: Unable to obtain acc urate result due to color interference. Urine leukocyte esterase det ection by automated test stripOrdered By: Rashard Aguilar on 01-24-2023 Leukocyte esterase Auto test strip Ql (U) See comment Negative [facility] Comment on above: Unable to obtain acc urate result due to color interference. Urine nitrite detection by a utomated test stripOrdered By: Rashard Aguilar on 01-24-2023 Nitrite Auto test strip Ql (U) See comment Negative [facility] Comment on above: Unable to obtain acc urate result due to color interference. Urobilinogen Test strip (U) [Mass/Vol]Ordered By: Rashard Aguilar on 01-24-2023 Urobilinogen (U) [Mass/Vol] See comment Normal [facility] Comment on above: Unable to obtain acc urate result due to color interference. WBC Auto (Bld) [#/Vol]Ordere d By: Rashard Aguilar on 01-24-2023 WBC (Bld) [#/Vol] 6.3 10*3/uL 3.8-11.6 [facility] Yeast detection in urine sed iment by light microscopyOrdered By: Rashard Aguilar on 01-24-2023 Yeast LM Ql (Urine sed) 3+ [HPF] None Seen [facility] pH Auto test strip (U)Ordere d By: Rashard Aguilar on 01-24-2023 pH (U) See comment 5.0-9.0 [facility] Comment on above: Unable to obtain acc [...] with bladders stones, pt see's urology in [place] History of Present Illness Tea Rahman is a 77-year-old female here to establish care as a prior patient of Dr. Santana. She is accompanied by her today. 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 Mrs. Rahman has a history of bladder stones and is followed by a urologist in [place]. She had a scope completed 10/21/2022 and, per patient, they stopped counting stones. She had also been followed by a urologist in [place]. When he moved his practice to [place], [place], she followed him for care. Due [...] with lupus, she was referred to a fish seiner in [place]. She tried a different fish seiner in [place] where she stayed until that provider retired. Since then, she has been to 3 or 4 rheumatologists. Right now she is followed by Dr. Aguilar who she likes. While other specialists have denied her lupus diagnosis, Dr. Aguilar treats her with hydroxychloroquine. Patient feels that her lupus is well managed. When she does have a lupus flare-up, she will feel very fatigued. She is followed by neurology/ Dr. Clark for sciatica. He reportedly told her that every joint in her body has arthritis in it. Mrs. Rahman takes Xanax for anxiety and Sidney for joint pain as sparingly as possible. Over the past few years, she has been taking a half a Xanax and a half a Sidney every morning as well as at night. [...] fibromyalgia syndrome (M79.7: Fibromyalgia) Patient is on Sidney for this. Again, discussed laws and regulations with this medication. She will comply. Will follow as needed. 5. Essential hypertension (I10: Essential (primary) hypertension) Patient is at goal at this time. Continue to monitor. 6. Long-term current use of opiate analgesic drug (Z79.891: buttermaker (current) use of opiate analgesic) We will continue to monitor use of Sidney. 7. Bladder stone (N21.0: Calculus in bladder) Will refer to urology for second opinion. Will see the patient back in 2 months and we will readjust the patient's medication as needed. Documentation services were performed after patient or guardian consented to allow Reina Anthony to record this visit. DARVIN donor services specialist and provider reviewed before signing. DARVIN: [...] and depressive (more content not included)... Normal [facility] Comment on above: Result Comment: Elec tronically Signed By: Anoop Almanzar MD\.br\Date and Time Signed: 12/22/22 14:14 EDT\.br\Electronically Co-Signed By: India Aguilar\.br\Date and Time Co-Signed: 12/21/22 17:26 EDT Physician Referralon 023 Physician Referral [id number]. [id number]:127 [facility] Lab Reportson 12-21-2022 Lab Reports [id number] 0CD:127 [facility] Medication Consenton 023 Medication Consent [id number] 0CD:127 [facility] Ambulatory Visit Summaryon 0 12-20-2022 Ambulatory [...] EDT With: Yohan PIPER, Anoop Lal Where: [facility] Normal [facility] Lab Reportson 12-14-2022 Lab Reports [id number] CD:127 Normal [facility] Stone Analysison 10-25-2022 Calculi description See Note Normal [facility] Comment on above: Result Comment: (NOT E) Specimen consists of numerous brown calculi. The total weight is 684 mg. Performed By: #### A STONE #### [place] [address] Backing In Machine Tender: Jamel Valentine MD Composition See Note [facility] Comment on above: Result Comment: (NOT E) [...] composition determined by FTIR analysis. Performed By: [place] [address] Snowmaker: Reggie Lawrence MD, PhD Performed By: #### A STONE #### [facility] [address] [place] [address] Backing In Machine Tender: Jamel Valentine MD [place] 684 mg Normal [facility] Comment on above: Performed By: #### A STONE #### [facility] [address] [place] [address] Backing In Machine Tender: Jamel Valentine MD CULTURE URINEon 09-20-2022 CULTURE URINE Culture Observations : NO GROWTH. Normal [facility] Comment on above: Performed By: #### U RCX #### [facility] [address] [place] [address] Dr. Gigi Guzman FREE T3on 09-20-2022 FREE T3 1.79 pg/mlL Critically low 2.18-3.98 [facility] Comment on above: Performed By: #### F T3, TSH #### [facility] [address] [place] [address] Dr. Gigi Guzman FREE T4on 09-20-2022 Free T4 [Mass/Vol] 0.97 ng/dL Normal 0.76-1.46 [facility] Comment on above: Performed By: #### F T4 #### [facility] [address] [place] [address] Dr. Gigi Guzman TSHon 09-20-2022 TSH 2.154 uIU/mL Normal 0.358-3.740 [facility] Comment on above: Performed By: #### F T3, TSH #### [facility] [address] [place] [address] Dr. Gigi Guzman CULTURE URINEon 08-17-2022 CULTURE URINE Culture Observations : LIGHT GROWTH OF MIXED GENITAL GARFIELD. NO POTENTIAL PATHOGENS SEEN. Normal [facility] Comment on above: Performed By: #### U RCX #### [facility] [address] [place] [address] Dr. Gigi Guzman Automated erythrocytes count in urine sediment (number/area)Ordered By: Rashard Aguilar on 05-17-2022 RBC Auto (Urine sed) [#/Area] 3-4 [HPF] 0-4 [facility] Automated leukocytes count i n urine sediment (number/area)Ordered By: Rashard Aguilar on 05-17-2022 WBC Auto (Urine sed) [#/Area] 10-19 [HPF] 0-4 [facility] Automated urine hyaline cast s count (number/volume)Ordered By: Rashard Aguilar on 05-17-2022 Hyaline casts Auto (U) [#/Vol] None seen [LPF] 0-1 [facility] Comment on above: --- 05/17/221731 -- -Ur Hyaline [employer] previously reported as: None Seen /LPF Basophils Auto (Bld) [#/Vol] Ordered By: Rashard Aguilar on 05-17-2022 Basophils (Bld) [#/Vol] 0.1 10*3/uL 0.0-0.2 [facility] Basophils/100 WBC Auto (Bld) Ordered By: Rashard Aguilar on 05-17-2022 Basophils/100 WBC (Bld) 0.9 % . [facility] Bilirubin Test strip Ql (U)O rdered By: Rashard Aguilar on 05-17-2022 Bilirubin Ql (U) Negative Negative [facility] Blood hemoglobin measurement (mass/volume)Ordered By: Rashard Aguilar on 05-17-2022 Hemoglobin (Bld) [Mass/Vol] 13.3 g/dL 11.8-15.4 [facility] Blood leukocytes automated c ount (number/volume)Ordered By: Rashard Aguilar on 05-17-2022 WBC (Bld) [#/Vol] 5.5 10*3/uL 4.5-11.0 [facility] C reactive protein [Mass/vol ume] in Serum or PlasmaOrdered By: Rashard Aguilar on 05-17-2022 CRP [Mass/Vol] 0.9 mg/dL 0.0-1.0 [facility] Casts typing in urine sedime nt by light microscopyOrdered By: Rashard Aguilar on 05-17-2022 Casts LM Nom (Urine sed) None seen [LPF] None Seen [facility] Comment on above: --- 05/17/22 1732 -- -Ur Other [employer] previously reported as: None Seen /LPF Color Auto (U)Ordered By: Alta Aguilar on 05-17-2022 Color (U) Yellow Yellow [facility] Creatinine and Glomerular fi ltration rate.predicted panel (S/P/Bld)Ordered By: Rashard Aguilar on 05-17-2022 Creatinine [Mass/Vol] 0.84 mg/dL 0.44-1.03 [facility] Eosinophils Auto (Bld) [#/Vo l]Ordered By: Rashard Aguilar on 05-17-2022 Eosinophils (Bld) [#/Vol] 0.3 10*3/uL 0.0-0.45 [facility] Eosinophils/100 WBC Auto (Bl d)Ordered By: Rashard Aguilar on 05-17-2022 Eosinophils/100 WBC (Bld) 4.7 % . [facility] Erythrocyte distribution wid th Auto (RBC) [Ratio]Ordered By: Rashard Aguilar on 05-17-2022 Erythrocyte distribution width (RBC) [Ratio] 14.7 % 11.9-15.3 [facility] Erythrocyte sedimentation ra te by Photometric methodOrdered By: Rashard Aguilar on 05-17-2022 ESR Photometric method (Bld) [Velocity] 47 mm/hr 0-29 [facility] Estimated glomerular filtrat ion rate (GFR) non- AmericanOrdered By: Rashard Aguilar on 05-17-2022 GFR/1.73 sq M.predicted among non-blacks MDRD (S/P/Bld) [Vol rate/Area] > 60 mL/Min [facility] Hematocrit Auto (Bld) [Volum e fraction]Ordered By: Rashard Aguilar on 05-17-2022 Hematocrit (Bld) [Volume fraction] 40.6 % 34.0-46.4 [facility] Ketones Auto test strip (U) [Mass/Vol]Ordered By: Rashard Aguilar on 05-17-2022 Ketones (U) [Mass/Vol] Negative Negative [facility] - Hematology and Cell countsOrdered By: Rashard Aguilar on 05-17-2022 Nucleated RBC/100 WBC (Bld) [Ratio] 0.1 % 0-0.5 [facility] Lymphocytes Auto (Bld) [#/Vo l]Ordered By: Rashard Aguilar on 05-17-2022 Lymphocytes (Bld) [#/Vol] 1.6 10*3/uL 1.00-4.8 [facility] Lymphocytes/100 WBC Auto (Bl d)Ordered By: Rashard Aguilar on 05-17-2022 Lymphocytes/100 WBC (Bld) 29.3 % . [facility] MCH Auto (RBC) [Entitic mass ]Ordered By: Rashard Aguilar on 05-17-2022 MCH (RBC) [Entitic mass] 30.3 pg 24.7-34.3 [facility] MCHC Auto (RBC) [Mass/Vol]Or dered By: Rashard Aguilar on 05-17-2022 MCHC (RBC) [Mass/Vol] 32.6 g/dL 32.0-35.0 [facility] MCV Auto (RBC) [Entitic vol] Ordered By: Rashard Aguilar on 05-17-2022 MCV (RBC) [Entitic vol] 93.0 fL 80-100 [facility] Monocytes Auto (Bld) [#/Vol] Ordered By: Rashard Aguilar on 05-17-2022 Monocytes (Bld) [#/Vol] 0.5 10*3/uL 0.0-0.8 [facility] Monocytes/100 WBC Auto (Bld) Ordered By: Rashard Aguilar on 05-17-2022 Monocytes/100 WBC (Bld) 8.6 % . [facility] Neutrophils Auto (Bld) [#/Vo l]Ordered By: Rashard Aguilar on 05-17-2022 Neutrophils (Bld) [#/Vol] 3.1 10*3/uL 1.8-7.7 [facility] Neutrophils/100 WBC Auto (Bl d)Ordered By: Rashard Aguilar on 05-17-2022 Neutrophils/100 WBC (Bld) 56.5 % . [facility] Nitrite Test strip Ql (U)Ord ered By: Rashard Aguilar on 05-17-2022 Nitrite Ql (U) Negative Negative [facility] No Panel InformationOrdered By: Rashard Aguilar on 05-17-2022 Estimated GFR () > 60 mL/Min [facility] Comment on above: GFR estimated refere nce range: According to KDOQI guidelines, <60 ml/min/1.73m2 is sufficient to diagnose a patient with chronic kidney disease. Pharmacy Creatinine Clearance (Chem N/A [facility] Platelet mean volume Auto (B ld) [Entitic vol]Ordered By: Rashard Aguilar on 05-17-2022 Platelet mean volume (Bld) [Entitic vol] 7.0 fL 6.3-10.7 [facility] Platelets Auto (Bld) [#/Vol] Ordered By: Rashard Aguilar on 05-17-2022 Platelets (Bld) [#/Vol] 278 10*3/uL 150-450 [facility] Protein Auto test strip (U) [Mass/Vol]Ordered By: Rashard Aguilar on 05-17-2022 Protein (U) [Mass/Vol] Negative Negative [facility] RBC Auto (Bld) [#/Vol]Ordere d By: Rashard Aguilar on 05-17-2022 RBC (Bld) [#/Vol] 4.37 10*6/uL 3.60-5.00 [facility] Specific gravity Auto test s trip (U) [Rel density]Ordered By: Rashard Aguilar on 05-17-2022 Specific gravity (U) [Rel density] 1.009 1.001-1.030 [facility] Squamous epithelial cells de tection in urine sediment by light microscopyOrdered By: Rashard Aguilar on 05-17-2022 Epithelial cells.squamous LM Ql (Urine sed) 5-9 [HPF] 0-2 [facility] Urine bacteria detection by automated methodOrdered By: Rashard Aguilar on 05-17-2022 Bacteria Auto Ql (U) None seen None Seen [facility] Urine clarity by refractomet ry automatedOrdered By: Rashard Aguilar on 05-17-2022 Clarity Refractometry automated (U) Clear Clear [facility] Urine glucose measurement by automated test strip (mass/volume)Ordered By: Rashard Aguilar on 05-17-2022 Glucose Auto test strip (U) [Mass/Vol] Normal mg/dL Normal [facility] Urine hemoglobin detection b y automated test stripOrdered By: Rashard Aguilar on 05-17-2022 Hemoglobin Auto test strip Ql (U) Negative Negative [facility] Urine leukocyte esterase det ection by automated test stripOrdered By: Rashard Aguilar on 05-17-2022 Leukocyte esterase Auto test strip Ql (U) 2+ Negative [facility] Urobilinogen Auto test strip (U) [Mass/Vol]Ordered By: Rashard Aguilar on 05-17-2022 Urobilinogen (U) [Mass/Vol] Normal mg/dL Normal [facility] pH Auto test strip (U)Ordere d By: Rashard Agiular on 05-17-2022 pH (U) 5.5 [pH] 5.0-9.0 [facility] CULTURE URINEon 03-17-2022 CULTURE URINE Isolate 1 [...] Trimethoprim/Sulfameth oxazole <=20 S F Normal [facility] Comment on above: Performed By: #### U RCX #### [facility] [address] [place] [address] Dr. Gigi Guzman UA (CLEAN/CATCH) SLUSHER OPERATOR/MICRO I F IND.on 03-14-2022 Bilirubin Ql (U) Negative Normal NEGATIVE [facility] Comment on above: Performed By: #### U ACSELLA DALTONRO #### [facility] [address] [place] [address] Dr. Gigi Guzman Clarity (U) CLEAR Normal CLEAR [facility] Comment on above: Performed By: #### U ACSIND UMICRO #### [facility] [address] [address] [address] Gigi Guzman Color (U) DK. YELLOW Normal YELLOW [facility] Comment on above: Performed By: #### U ACSIND, UMICRO #### [facility] [address] [address] [address] Gigi Guzman Glucose Ql (U) Negative Normal NEGATIVE [facility] Comment on above: Performed By: #### U ACSIND, UMICRO #### [facility] [address] [address] [address] Gigi Guzman Hemoglobin Ql (U) Negative Normal NEGATIVE [facility] Comment on above: Performed By: #### U ACSIND, UMICRO #### [facility] [address] [place] [address] Dr. Gigi Guzman Ketones Ql (U) Negative Normal NEGATIVE [facility] Comment on above: Performed By: #### U ACSIND, UMICRO #### [facility] [address] [place] [address] Dr. Gigi Guzman LEUKOCYTES TRACE Abnormal NEGATIVE [facility] Comment on above: Performed By: #### U ACSIND, UMICRO #### [facility] [address] [place] [address] Dr. Gigi Guzman Nitrite Ql (U) Positive Abnormal NEGATIVE [facility] Comment on above: Performed By: #### U ACSIND, UMICRO #### [facility] [address] [address] [address] Gigi Guzman pH (U) 5.0 [pH] Normal 5-9 [facility] Comment on above: Performed By: #### U ACSIND, UMICRO #### [facility] [address] [address] [address] Gigi Gzuman SPEC GRAVITY 1.010 Normal 1.005-<=1.02 5 [facility] Comment on above: Performed By: #### U ACSIND, UMICRO #### [facility] [address] [address] [address] Gigi Guzman UA PROTEIN Negative Normal NEGATIVE/ TRACE [facility] Comment on above: Performed By: #### U ACSIND, UMICRO #### [facility] [address] [address] [address] Gigi Guzman UR MICRO IND INDICATED Normal [facility] Comment on above: Performed By: #### U ACSIND, UMICRO #### [facility] [address] [place] [address] Dr. Gigi Guzman Urobilinogen Qn (U) 0.2 {Maren'U}/dL Normal 0.2 - 1. 0 [facility] Comment on above: Performed By: #### U ACSIND, UMICRO #### [facility] [address] [place] [address] Dr. Gigi Guzman URINE MICROSCOPIC ONLYon BACTERIA SMALL Abnormal NONE SEEN [facility] Comment on above: Performed By: #### U ACSIND, UMICRO #### [facility] [address] [place] [address] Dr. Gigi Guzman Bacteria identified Cx Nom (U) INDICATED Normal [facility] Comment on above: Performed By: #### U ACSIND, UMICRO #### [facility] [address] [place] [address] Dr. Gigi Guzman CAST NONE SEEN Normal NONE SEEN [facility] Comment on above: Performed By: #### U ACSIND, UMICRO #### [facility] [address] [place] [address] Dr. Gigi Guzman Crystals LM Nom (Urine sed) NONE SEEN Normal NONE SEEN [facility] Comment on above: Performed By: #### U ACSIND, UMICRO #### [facility] [address] [place] [address] Dr. Gigi Guzman Epithelial cells LM Ql (Urine sed) FEW Abnormal NONE SEEN /RARE [facility] Comment on above: Performed By: #### U ACSIND, UMICRO #### [facility] [address] [place] [address] Dr. Gigi Guzman MUCOUS NONE SEEN Normal NONE SEEN [facility] Comment on above: Performed By: #### U ACSIND, UMICRO #### [facility] [address] [address] [address] Gigi Guzman RBC 0-2 Normal 0-2 [facility] Comment on above: Performed By: #### U ACSKRYSTLE, UMICRO #### [facility] [address] [address] [address] Gigi Guzman WBC 10-20 Abnormal NONE SEEN [facility] Comment on above: Performed By: #### U ACSKRYSTLE, UMICRO #### [facility] [id number] Gigi Guzman CULTURE URINEon 01-25-2022 CULTURE URINE Culture Observations : LIGHT GROWTH OF MIXED GENITAL GARFIELD. NO POTENTIAL PATHOGENS SEEN. Normal [facility] Comment on above: Performed By: #### U RCX #### [facility] [address] [address] [address] Gigi Guzman Urinalysis - AUTOMATEDon Appearance (U) cloudy [employer] Other Bilirubin Ql (U) Negative [employer] Other Color (U) orange [employer] Other Glucose Ql (U) Negative [employer] Other Hemoglobin Ql (U) Negative [employer] Other Ketones Ql (U) Negative [employer] Other Leukocyte esterase Test strip Ql (U) trace [employer] Other Nitrite Ql (U) Positive [employer] Other pH (U) 5.0 [pH] [employer] Other Protein Ql (U) Negative [employer] Other Specific gravity (U) [Rel density] >1.030 [employer] Other Urobilinogen (U) [Mass/Vol] 0.2 mg/dL [employer] Other Urinalysis - AUTOMATED [employer] Other Urine Cultureon 12-21-2021 Urine Culture >100,000 [employer] [facility] [employer] Other ANAon 07-06-2017 KAILEY PATTERN HOMOGENEOUS AND SPECKLED Normal [facility] Comment on above: Performed By: #### 0 0121, 06691 ####[facility] [place] [address], [facility] KAILEY SCREEN 1:160 Abnormal <1:40,1:40 [facility] Comment on above: Performed By: #### 0 0121, 12449 ####[facility] [facility] [place] [address], [facility] ANTI DNAon 07-06-2017 ANTI DNA <1:10 Normal <1:10 [facility] Comment on above: Performed By: #### 0 0121, 00965 ####[facility] [place] [address], [facility] ANTI-BETA 2 GLYCOPROTEIN 1on 07-06-2017 ANTI B2GP1 IGA 4.5 a units Normal 0.0-19.9 [facility] Comment on above: Performed By: #### 0 0121, 89559 ####[facility] [place] [address], [facility] ANTI B2GP1 IGG 0.7 g units Normal 0.0-19.9 [facility] Comment on above: Performed By: #### 0 0121, 03544 ####[facility] [place] [address], [facility] ANTI B2GP1 IGM 3.8 m units Normal 0.0-19.9 [facility] Comment on above: Performed By: #### 0 0121, 96520 ####[facility] [place] [address], [facility] ANTI-ENAon 07-06-2017 ANTI SM Negative Normal NEG,NEGATIVE ,Neg [facility] Comment on above: Performed By: #### 0 0121, 22080 ####[facility] [facility].[address] ANTI SM/ANTIRNP Negative Normal NEG,NEGATIVE ,Neg [facility] Comment on above: Performed By: #### 0 0121, 59056 ####[facility].[address] ANTICARDIOLIPIN ANTIBODYon 1 09-05-2016 CARDIOLIPIN IGA 3.4 APL Normal 0.0-21.9 [facility] Comment on above: Performed By: #### 0 0121, 25781 ####[facility].[address] CARDIOLIPIN IGG 7.7 GPL Normal 0.0-22.9 [facility] Comment on above: Performed By: #### 0 0121, 68137 ####[facility].[address] CARDIOLIPIN IGM 1.2 MPL Normal 0.0-10.9 [facility] Comment on above: Performed By: #### 0 0121, 91243 ####[address] [place] [address] [facility].[address] C REACTIVE PROTEINon 017 C reactive protein (CRP) 6.1 mg/L Normal 0.0-7.0 [facility] Comment on above: Performed By: #### 1 0238, 13209, 74590 ####[facility] [facility] [place] [address], [facility] CBC W/DIFFon 07-06-2017 Basophils Auto #/vol (Bld) 0.4 % Normal 0.0-2.0 [facility] Comment on above: Performed By: #### 5 0103, 29459 ####[facility] Eosinophils/100 leukocytes 2.9 % Normal 0.0-5.0 [facility] Comment on above: Performed By: #### 5 010, 97897 ####[facility] Erythrocyte distribution width Auto Ratio (RBC) 15.1 % Normal 11.5-16.9 [facility] Comment on above: Performed By: #### 5 102, 80073 ####[facility] Erythrocytes (RBC) 4.47 mill/mm3 Normal 3.50-5.50 [facility] Comment on above: Performed By: #### 5 102, 30456 ####[address] [place] [address] Hematocrit (HCT) 40.7 % Normal 36.0-48.0 [facility] Comment on above: Performed By: #### 5 102, 84908 ####[facility] Hemoglobin mass conc (Bld) 13.5 g/dL Normal 12.0-15.0 [facility] Comment on above: Performed By: #### 5 102, 79029 ####[facility] Lymphocytes/100 leukocytes 27.3 % Normal 20.0-40.0 [facility] Comment on above: Performed By: #### 5 102, 32744 ####[facility] MCH 30.1 pg Normal 24.0-32.0 [facility] Comment on above: Performed By: #### 5 102, 62697 ####[facility] [place] [address], [facility] MCHC mass conc (RBC) 33.0 g/dL Normal 32.0-36.0 [facility] Comment on above: Performed By: #### 5 0103, 57044 ####[facility] [place] [address], [facility] MCV 91.1 fL Normal 80.0-100.0 [facility] Comment on above: Performed By: #### 5 010, 89312 ####[facility] [place] [address], [facility] METHOD Normal RBC Morphology Normal [facility] Comment on above: Performed By: #### 5 010, 93848 ####[facility] [place] [address], [facility] MONOS 6.6 % Normal 2-8 [facility] Comment on above: Performed By: #### 5 010, 54810 ####[facility] [place] [address], [facility] Neutrophils/100 leukocytes 62.8 % Normal 50-70 [facility] Comment on above: Performed By: #### 5 0103, 10376 ####[facility] [place] [address], [facility] PLAT CNT 209 Thou/mm3 Normal 100-400 [facility] Comment on above: Performed By: #### 5 010, 47820 ####[facility] [place] [address], [facility] WBC (Leukocytes) 7.9 Thou/mm3 Normal 4.0-10.0 [facility] Comment on above: Performed By: #### 5 010, 72238 ####[facility] [place] [address], [facility] COMP METABOLIC PANELon 07-06 Alanine aminotransferase (ALT) 17 U/L Normal 7-52 [facility] Comment on above: Performed By: #### 0 0121, 65296 ####[facility] [facility].[address] Albumin 4.4 g/dL Normal 3.5-5.7 [facility] Comment on above: Performed By: #### 0 0121, 64485 ####[facility].[address] ALKALINE PHOSPH 54 IU/L Normal 34-104 [facility] Comment on above: Performed By: #### 0 0121, 53715 ####[place] [address] [facility].[address] Aspartate aminotransferase (AST) 25 U/L Normal 13-39 [facility] Comment on above: Performed By: #### 0 0121, 12744 ####[address] Bilirubin (total) 0.4 mg/dL Normal 0.3-1.0 [facility] Comment on above: Performed By: #### 0 0121, 39939 ####[place] [address] [facility].[address] Calcium 9.4 mg/dL Normal 8.6-10.3 [facility] Comment on above: Performed By: #### 0 0121, 57066 ####[facility] [facility].[address] Chloride 105 mmol/L Normal 98-107 [facility] Comment on above: Performed By: #### 0 0121, 28928 ####[facility] [facility].[address] CO2 28 mmol/L Normal 21-31 [facility] Comment on above: Performed By: #### 0 0121, 97023 ####[facility] [facility].[address] Creatinine 0.88 mg/dL Normal 0.60-1.20 [facility] Comment on above: Performed By: #### 0 0121, 33994 ####[facility] eGFR (black) mL/min/{1.73_m2} Normal >60 [facility] Comment on above: Result Comment: Calc ulation may not be valid for patients over 70 years Performed By: #### 0 0121, 48672 ####[facility] [facility].[address] eGFR (non-black) mL/min/{1.73_m2} Normal >60 [facility] Comment on above: Result Comment: Calc ulation may not be valid for patients over 70 years Performed By: #### 0 0121, 12306 ####[facility].[address] Glucose mass conc 90 mg/dL Normal 70-100 [facility] Comment on above: Performed By: #### 0 0121, 45808 ####[place] [address] [facility].[address] Potassium molar conc 3.9 mmol/L Normal 3.5-5.1 [facility] Comment on above: Performed By: #### 0 0121, 38171 ####[facility] Protein 7.2 g/dL Normal 6.0-8.3 [facility] Comment on above: Performed By: #### 0 0121, 38434 ####[facility] Sodium 137 mmol/L Normal 136-145 [facility] Comment on above: Performed By: #### 0 0121, 98309 ####[facility] [place] [address], [facility] Urea nitrogen 16 mg/dL Normal 7-25 [facility] Comment on above: Performed By: #### 0 0121, 57448 ####[facility] [place] [address], [facility] COMPLEMENT 3on 07-06-2017 COMPLEMENT 3 125 mg/dL Normal 79-152 [facility] Comment on above: Performed By: #### 1 0238, 08001, 33048 ####[facility] [place] [address], [facility] COMPLEMENT 4on 07-06-2017 COMPLEMENT 4 28 mg/dL Normal 16-38 [facility] Comment on above: Performed By: #### 1 0238, 61032, 73564 ####[facility] CPKon 07-06-2017 Creatine kinase (CK) 55 U/L Normal 30-223 [facility] Comment on above: Performed By: #### 0 0121, 16582 ####[facility] CREATININE URINE RANDOMon Creatinine 87.0 mg/dL Normal [facility] Comment on above: Result Comment: Ther e are no established reference values for random urine specimens Performed By: #### 4 1802, 02620 ####[facility] [place] [address], [facility] SEDIMENTATION RATEon 017 SED RATE 22 mm/hr High 0-20 [facility] Comment on above: Performed By: #### 5 0103, 07682 ####[facility] [place] [address], [facility] SJOGRENS ANTIBODIESon 2016 SS-A Negative Normal NEG,NEGATIVE ,Neg [facility] Comment on above: Performed By: #### 0 0121, 09559 ####[id number] [place] [address], [facility] SS-B Negative Normal NEG,NEGATIVE ,Neg [facility] Comment on above: Performed By: #### 0 0121, 79736 ####[facility] [place] [address], [facility] T PROT UR Rhianna 07-06-2017 U TOTAL PROTEIN 10.0 mg/dL Normal [facility] Comment on above: Result Comment: Ther e are no established reference values for random urine specimens Performed By: #### 4 1802, 18087 ####[facility] [facility] [place] [place] [address], [facility] URINALYSISon 07-06-2017 Bilirubin (total) Negative Normal NEGATIVE [facility] Comment on above: Performed By: #### 1 0008 ####[facility] [place] [address], [facility] BLOOD Negative Normal NEGATIVE [facility] Comment on above: Performed By: #### 1 0008 ####[facility] [facility] [place] [address], [facility] EPIS MANY Abnormal FEW [facility] Comment on above: Performed By: #### 1 0008 ####[facility] [facility] [place] [address], [facility] Erythrocytes (RBC) 0-2 Abnormal 0-0 [facility] Comment on above: Performed By: #### 1 0008 ####[facility] [place] [address], [facility] Glucose mass conc Negative Normal NEGATIVE [facility] Comment on above: Performed By: #### 1 0008 ####[facility] [place] [address], [place] KETONE Negative Normal NEGATIVE [facility] Comment on above: Performed By: #### 1 0008 ####[facility] [facility] [place] [address], [facility] LEUK GERRY TRACE Abnormal NEGATIVE [facility] Comment on above: Performed By: #### 1 0008 ####[facility] [facility].[address] MUCUS THREADS OCC Abnormal NONE SEEN [facility] Comment on above: Performed By: #### 1 0008 ####[facility] [facility].[address] pH of blood 5.0 [pH] Normal 5.0-8.0 [facility] Comment on above: Performed By: #### 1 0008 ####[place] [id number] [facility].[address] Protein Negative Normal NEGATIVE [facility] Comment on above: Performed By: #### 1 0008 ####[facility].[address] SPEC GRAV 1.013 Low 1.015-1.020 [facility] Comment on above: Performed By: #### 1 0008 ####[facility] [facility] [place] [address], [facility] Urine, appearance CLEAR Normal CLEAR [facility] Comment on above: Performed By: #### 1 0008 ####[facility] [facility] [place] [address], [facility] Urine, bacteria in sediment OCC Abnormal NONE SEEN [facility] Comment on above: Performed By: #### 1 0008 ####[place] [address] [facility] [place] [address], [facility] Urine, color SHAYY Abnormal YELLOW [facility] Comment on above: Performed By: #### 1 0008 ####[address] [place] [address], [facility] Urine, nitrite presence Positive Abnormal NEGATIVE [facility] Comment on above: Performed By: #### 1 0008 ####[facility] [place] [address], [facility] WBC UA 6-10 Abnormal 0-0 [facility] Comment on above: Performed By: #### 1 0008 ####[facility] Vital Signs Date Time Vital Sign Value Performing Clinician Faci lity 08-17-2023 13:40-0500 Body height 167.64 cm Shayy Garza Other [employer] Other 08-17-2023 13:40-0500 Body mass index (BMI) [Ratio] 26.31 kg/m2 Shayy Garza Other [employer] Other 08-17-2023 13:40-0500 Body temperature 97.9 [degF] Shayy Garza Other [employer] Other 08-17-2023 13:40-0500 Body weight 73.94 kg Shayy Garza Other [employer] Other 08-17-2023 13:40-0500 Respiratory rate 18 /min Shayy Garza Other [employer] Other 08-17-2023 13:40-0500 SaO2% (BldA) [Mass fraction] 96 % Shayy Garza Other [employer] Other 08-01-2023 09:00-0500 Body height 167.64 cm Mary Toure Other [employer] Other 08-01-2023 09:00-0500 Body mass index (BMI) [Ratio] 26.02 kg/m2 Mary Toure Other [employer] Other 08-01-2023 09:00-0500 Body temperature 98.1 [degF] Mary Toure Other [employer] Other 08-01-2023 09:00-0500 Body weight 73.12 kg Mary Toure Other [employer] Other 08-01-2023 09:00-0500 Diastolic blood pressure 97 mm[Hg] Mary Toure Other [employer] Other 08-01-2023 09:00-0500 Respiratory rate 18 /min Mary Toure Other [employer] Other 08-01-2023 09:00-0500 SaO2% (BldA) [Mass fraction] 95 % Mary Toure Other [employer] Other 08-01-2023 09:00-0500 Systolic blood pressure 166 mm[Hg] Mary Toure Other [employer] Other 06-01-2023 14:54-0400 Diastolic blood pressure 88 mm[Hg] Rahul Salas [facility] 06-01-2023 14:54-0400 Heart rate 78 /min Rahul Salas [facility] 06-01-2023 14:54-0400 SaO2% (BldA) [Mass fraction] 97 % Rahul Salas [facility] 06-01-2023 14:54-0400 Systolic blood pressure 138 mm[Hg] Rahul Salas [facility] 04-20-2023 14:33-0400 Blood Pressure Location Rahul Salas [facility] 04-20-2023 14:33-0400 Diastolic blood pressure 72 mm[Hg] Rahul Salas [facility] 04-20-2023 14:33-0400 Heart rate 76 /min Rahul Salas [facility] 04-20-2023 14:33-0400 SaO2% (BldA) [Mass fraction] 96 % Rahul Salas [facility] 04-20-2023 14:33-0400 Systolic blood pressure 128 mm[Hg] Rahul Salas [facility] 12-21-2021 13:35-0400 Body height 167.64 cm Mary Paulmond Other [employer] Other 12-21-2021 13:35-0400 Body mass index (BMI) [Ratio] 28.73 kg/m2 Mary Toure Other [employer] Other 12-21-2021 13:35-0400 Body temperature 97.9 [degF] Mary Toure Other [employer] Other 12-21-2021 13:35-0400 Body weight 80.74 kg Mary Paulmond Other [employer] Other 12-21-2021 13:35-0400 Diastolic blood pressure 66 mm[Hg] Mary Paulmond Other [employer] Other 12-21-2021 13:35-0400 Respiratory rate 16 /min Mary Paulmond Other [employer] Other 12-21-2021 13:35-0400 SaO2% (BldA) [Mass fraction] 97 % Mary Toure Other [employer] Other 12-21-2021 13:35-0400 Systolic blood pressure 129 mm[Hg] Mary Toure Other [employer] Other Encounters Encounter Date Encounter Type Care Provider Facility Start: 11-13-2023 End: 11-14-2023 ambulatory XXXX NONE Facility[facility] Start: 11-13-2023 End: 11-13-2023 Patient encounter procedure Rahul Salas [facility] Start: 11-08-2023 End: 11-08-2023 ambulatory SHAIKH BENNETT Not Available Start: 10-27-2023 End: 10-27-2023 ambulatory SERA JENSEN Not Available Start: 10-09-2023 End: 10-09-2023 ambulatory SHAIKH BENNETT Not Available Start: 09-27-2023 Telephone encounter Deven Benton MA [facility] Comment on above: Medication Question (PT HAS BEEN GIVEN ZOFRAN IN THE PAST (PREVIOUS MD) FOR STOMACH ISSUES. SHE ASKED IF YOU COULD SEND SOME IN FOR HER USE FROM TIME TO TIME -SCR) Start: 09-12-2023 End: 09-12-2023 ambulatory Rashard Aguilar Facility:[facility] Start: 09-12-2023 End: 09-12-2023 ambulatory PHYSICIAN NO [facility] Work Phone: Start: 09-12-2023 End: 09-12-2023 Patient encounter procedure PHYSICIAN NO [facility] [address] Work Phone: Start: 09-05-2023 End: 09-05-2023 ambulatory SHAIKH BENNETT Not Available Start: 08-28-2023 End: 08-29-2023 ambulatory Gem Contreras Facility[facility] Start: 08-28-2023 End: 08-28-2023 Patient encounter procedure Gem Contreras [facility] Start: 08-20-2023 End: 08-20-2023 ambulatory Shayy Garza Other [employer] Other Start: 08-20-2023 Telephone encounter Shayy Garza [facility] [address] Start: 08-17-2023 End: 08-17-2023 ambulatory Shayy Freeman Greg Facility:[facility] Start: 08-17-2023 End: 08-17-2023 Departed Referred PHYSICIAN NO [facility] [place] Work Phone: Start: 08-17-2023 End: 08-17-2023 ambulatory PHYSICIAN NO [facility] Work Phone: Start: 08-17-2023 Office outpatient visit 15 minutes Shayy Garza [facility] Start: 08-17-2023 End: 08-17-2023 Patient encounter procedure PHYSICIAN NO [facility] [place] Work Phone: Start: 2023 End: 08-16-2023 ambulatory Camelia LOW Facility:[facility] Start: 08-01-2023 Office outpatient visit 15 minutes Mary Toure [facility] Start: 08-01-2023 End: 08-01-2023 [facility] Other Start: 08-01-2023 End: 08-01-2023 Departed Referred PHYSICIAN NO [facility] [place] Work Phone: Start: 07-31-2023 End: 08-01-2023 ambulatory Gem Contreras Facility:[facility] Start: 07-31-2023 End: 08-01-2023 Patient encounter procedure Gem Contreras [facility] Start: 07-24-2023 End: 07-25-2023 ambulatory SERA JENSEN Not Available Start: 07-14-2023 End: 07-15-2023 ambulatory Anoop Almanzar Facility:[facility] Start: 06-29-2023 ambulatory Elizalde Talal Karlymini Facility:[facility] Start: 06-23-2023 ambulatory Gem Contreras Facility:[facility] Start: 06-22-2023 End: 06-23-2023 ambulatory Anoop Almanzar Facility:[facility] Start: 06-13-2023 ambulatory Gem Freeman Contreras Facility [facility] Start: 06-06-2023 End: 06-07-2023 ambulatory Gem Contreras Facility:[facility] Start: 06-06-2023 End: 06-06-2023 Patient encounter procedure Gem Contreras [facility] Start: 06-01-2023 End: 06-02-2023 ambulatory Anoop Almanzar Facility:[facility] Start: 06-01-2023 End: 06-01-2023 Patient encounter procedure Rahul Salas [facility] Start: 05-31-2023 ambulatory Gem Contreras [facility] Start: 05-30-2023 End: 05-31-2023 ambulatory Anoop Almanzar Facility:[facility] Start: 05-25-2023 End: 05-26-2023 ambulatory XXXX NONE Facility:[facility] Start: 05-11-2023 End: 05-12-2023 ambulatory Rahul Salas Facility:[facility] Start: 05-11-2023 End: 05-11-2023 Patient encounter procedure Rahul Salas [facility] Start: 05-09-2023 Telephone encounter Shayy Garza [facility] [place] Start: 05-09-2023 End: 05-10-2023 ambulatory [facility] Other Start: 05-04-2023 End: 05-04-2023 ambulatory Shayy Garza Facility:[facility] Start: 04-20-2023 End: 04-21-2023 ambulatory Anoop Almanzar Facility:[facility] Start: 04-20-2023 End: 04-20-2023 Patient encounter procedure Rahul Salas [facility] Start: 04-17-2023 End: 04-18-2023 ambulatory Anoop Almanzar Facility: [facility] Start: 03-28-2023 End: 03-29-2023 ambulatory Anoop Almanzar Facility:[facility] Start: 03-20-2023 End: 03-21-2023 ambulatory Anoop EsparzaElvis Yohan Facility: [facility] Start: 03-02-2023 End: 03-02-2023 ambulatory Rashard Aguilar Facility:[facility] Start: 03-02-2023 End: 03-02-2023 ambulatory MD Ashutosh Santana Work Phone: [facility] Work Phone: Start: 03-02-2023 End: 03-02-2023 Patient encounter procedure MD Ashutosh Santana Work Phone: [facility] [address] Work Phone: Start: 01-24-2023 End: 01-24-2023 ambulatory Rashard Aguilar Facility:[facility] Start: 01-24-2023 End: 01-24-2023 ambulatory MD Ashutosh Santana Work Phone: [facility] Work Phone: Start: 01-24-2023 End: 01-24-2023 Patient encounter procedure MD Ashutosh Santana Work Phone: [facility] [address] Work Phone: Start: 12-20-2022 End: 12-21-2022 ambulatory Anoop Almanzar Facility: [facility] [place] Start: 10-21-2022 End: 10-22-2022 ambulatory PILI VELASCO [facility] Start: 09-20-2022 End: 09-21-[address] ASHUTOSH SANTANA Facility:[facility] Start: 08-17-2022 End: 08-18-[address] ASHUTOSH SANTANA Facility:[facility] Start: 05-17-2022 End: 05-17-2022 ambulatory MD Ashutosh Santana Work Phone: [facility] Work Phone: Start: 05-17-2022 End: 05-17-2022 Patient encounter procedure MD Ashutosh Santana Work Phone: [facility] [address] Start: 03-14-2022 End: 03-15-[address] ASHUTOSH SANTANA Facility:[facility] Start: 01-25-2022 End: 01-26-[address] ASHUTOSH SANTANA Facility:[facility] Start: 01-06-2022 End: 01-06-2022 ambulatory Mary Tuore Other [employer] Other Start: 01-06-2022 Telephone encounter Mary Toure [facility] Start: 12-21-2021 End: 12-21-2021 ambulatory Mary Toure Other [employer] Other Start: 12-21-2021 Office outpatient visit 25 minutes Mary Toure [facility] Start: 09-27-[address] ASHUTOSH SANTANA Facilit y:[facility] Start: 07-06-2017 End: 07-07-2017 Ambulatory LISET SINGHA Facility:[facility] Procedures Date Procedure Procedure Detail Performing [...] Annual Wellness (AWV) Medicare Annual Wellness (AWV) [facility] Start: 11-08-2023 End: 11-08-2023 Patient encounter procedure 11/08/2023 3:30 PM EDT Office Visit [facility] [address] [place] [id number] Shaikh Leung MD [address] [place] [id number] [facility] Start: 09-12-2023 Bacteria identified in Urine by Culture [facility] Start: 08-17-2023 Bacteria identified in Urine by Culture [facility] Start: 04-21-2023 Influenza vaccination Influenza Vaccine (#1) [facility] Start: 01-24-2023 Bacteria identified in Urine by Culture Urine Culture [facility] Start: 05-17-2022 [facility] Start: 1951 Pneumococcal Vaccine: 65+ Years (1 - PCV) Pneumococcal Vaccine: 65+ Years (1 - PCV) [facility] Bacteria identified in Urine by Culture [facility] Complement C3 [Mass/ volume] in Serum or Plasma [facility] Work Phone: Complement C3 [Mass/ volume] in Serum or Plasma [facility] Complement C4 [Mass/ volume] in Serum or Plasma [facility] Work Phone: Complement C4 [Mass/ volume] in Serum or Plasma [facility] Myeloperoxidase Ab [Units/volume] in Serum by Immunoassay [facility] Work Phone: Neutrophil cytoplasm ic Ab.classic [Titer] in Serum by Immunofluorescence [facility] Work Phone: Neutrophil cytoplasm ic Ab.perinuclear.atypical [Titer] in Serum by Immunofluorescence [facility] Work Phone: P-ANCA measurement [facility] Work Phone: Proteinase 3 Ab [Units/volume] in Serum by Immunoassay [facility] Work Phone: Immunizations Immunization Date Immunization Notes Care Provider Tonja martinez NEGATED: Highlighted row has not occurred!05-30-2023 influenza virus vaccine, unspecified formulation Rahul Salas [facility] NEGATED: Highlighted row has not occurred!11-02-2022 influenza virus vaccine, unspecified formulation [facility] NEGATED: Highlighted row has not occurred!11-02-2022 SARS-CoV-2 mRNA (tozinameran 5y-11y) vaccine Rahul Portillo [facility] Payers Date Payer Category Payer Self-pay [id number] 2022 Medicare [id number] 2022 Medicare ANTHEM MEDICARE ADVANTAGE [facility] MEDICARE ADVANTAGE [id number] 2022-Present [address] [place] [address] [id number] 2021 Medicaid MEDICAID [facility] [id number] 2021-Present [phone] [address] [place] [address] Medicaid [id number] 1959 Medicaid [id number] 2.16.840.1.676497.19 1959 Medicare [id number] 2.16.840.1.001803.19 1945 Unknown [id number] 2.16.840.1.223717.3.579.2. 593 1945 Unknown [id number] 2.16.840.1.830243.3.579.2. 593 1945 Unknown [id number] 2.16.840.1.129135.3.579.2. 593 1945 Unknown [id number] 2.16.840.1.557684.3.579.2. 593 1945 Unknown [id number] 2.16.840.1.874825.3.579.2. 593 1945 Unknown [id number] 2.16.840.1.218370.3.579.2. 175 1945 Unknown [id number] 2.16.840.1.246662.3.579.2. 1259 1945 Unknown [id number] 2.16.840.1.385568.3.579.2. 1259 1945 Unknown [id number] 2.16.840.1.608612.3.579.2. 1259 1945 Unknown [id number] 2.16.840.1.184491.3.579.2. 1259 1945 Unknown [id number] 2.16.840.1.988331.3.579.2. 1259 1945 Unknown [id number] 2.16.840.1.174472.3.579.2. 1259 1945 Unknown [id number] 2.16.840.1.562604.3.579.2. 727 1945 Unknown [id number] 2.16.840.1.034058.3.579.2. 727 1945 Unknown [id number] 2.16.840.1.961311.3.579.2. 727 1945 Unknown [id number] 2.16.840.1.626191.3.579.2. 727 1945 Unknown [id number] 2.16.840.1.306314.3.579.2. 1945 Unknown [id number] 2.16.840.1.414783.3.579.2. 72 1945 Unknown [id number] 2.16.840.1.444410.3.579.2. 1945 Unknown [id number] 2.16.840.1.056559.3.579.2. 72 1945 Unknown [id number] 2.16.840.1.760995.3.579.2. 1945 Unknown [id number] 2.16.840.1.596104.3.579.2 1945 Unknown [id number] 2.16.840.1.941625.3.579.2. 1945 Unknown [id number] 2.16.840.1.569461.3.579.2 1945 Unknown [id number] 2.16.840.1.504233.3.579.2 1945 Unknown [id number] 2.16.840.1.830293.3.579.2 1945 Unknown [id number] 2.16.840.1.830138.3.579.2. 1945 Unknown [id number] 2.16.840.1.501074.3.579.2. 1945 Unknown [id number] 2.16.840.1.545387.3.579.2. 1945 Unknown [id number] 2.16.840.1.225945.3.579.2. 1945 Unknown [id number] 2.16.840.1.201361.3.[address] [facility] YOLANDA [id number] Medicare Medicare Nonpatient [id number] Unknown [id number] 2.16.840.1.778382.3.579.2. 531 Unknown [id number] 2.16.840.1.933730.3.579.2. 531 Unknown [id number] 2.16.840.1.249846.3.579.2. 531 Unknown [id number] 2.16.840.1.342493.3.579.2. 531 Unknown [id number] 2.16.840.1.896894.3.579.2. 531 Unknown [id number] 2.16.840.1.392685.3.579.2. 531 Social History Date Type Detail Facility Unknown if ever smoked [employer] Other Start: 09-05-2023 [facility]igned At [facility] Start: 1945 Sex Assigned At Female F [facility] Start: 04-17-2023 End: 06-22-2023 Tobacco smoking status Never smoked tobacco (finding) [facility] Tobacco smoking status Never [facility] Start: 05-01-2023 Tobacco use and exposure Smokeless tobacco non-user [facility] Start: 09-05-2023 Alcohol intake Lifetime non-d yessica (finding) [facility] Start: 09-05-2023 History of Social function [facility] Start: 05-01-2023 Alcohol Comment caffeine intak e: 1-2 cups per day. [facility] Start: 1945 Sex Assigned At Not on file N [facility] Functional Status Date Assessment Result Facility 06-01-2023 Functional Status No [facility] 04-20-2023 Functional Status No [facility] Clinical Notes 12-21-2021 to 08-17-2023 Note [...] understanding and is agreeable to treatment plan. [employer] Other 12-12-2023 Evaluation note* Encounter Date Diagnosis [...] as needed for aches pains or fevers. [employer] Other 09-22-2023 NoteEchocardiology Procedure Exam Date/Time Accession # Ordering Dr. Garner Transthoracic 05/11/2023 11:40 EDT [id number] Portillo PIPER, Rahul Varner CPT code [id number] Reason for Exam (Echo Transthoracic Complete) I25.10;CAD Coronary artery disease Report Version: 1 Study ID: [id number] [facility] [address] [place] [address] Adult Echocardiogram Report Name: TEA RAHMAN Study Date: 05/11/2023, 10: 55 AM Patient Location: [facility] : 1945 (MM/DD/YYYY) Gender: Female Age: 77 Years Height: 167.64 cm BP: 105 / 64 mmHg Weight: 79.38 kg HR: 62 bpm BSA: 1.89 m? Ordering Physician: Rahul Salas Referring Physician: Rahul Salas Performed By: Dunia Orellana, KENIAMS, RVT Reason For Study: CAD Coronary artery [...] Signed by: Rahul Salas MD Transcribed by: [facility] Technologist: [facility]05-03-2022 Evaluation note* Encounter Date Diagnosis Assessment Notes [...] the ER for worsening symptoms or concerns [employer] Other Evaluation + Plan note Future Appointments Appointment Date:05/25/2023 03:15:00 PM Scheduled Provider:Rahul Salas MD [facility] [place] App[facility] Type:Cardiology Follow Up (FT) Appointment Date:06/13/2023 01:20:00 PM Scheduled Provider:Anoop Almanzar MD Location:[facility]: [facility] Future Appointments Appointment Date:06/06/2023 01:00:00 PM Scheduled Provider:[place] Location:[facility] Appointment Type:BH Therapy New Patient Appointment Date:06/22/2023 04:00:00 PM Scheduled Provider:Anoop Almanzar MD Location:[facility] Appointment Type: Open Appointment Date:06/29/2023 02:30:00 PM Scheduled Provider:Tonio Levy MD Location:[facility] Dig[facility]ive Health Appointment Type:[facility] New Patient Appointment Date:07/14/2023 09:30:00 AM Scheduled Provider: Location:[facility] App[facility]ments Appointment Date:06/13/2023 01:00:00 PM Scheduled Provider:[place] Location:[facility] Appointment Type:BH Therapy 60 Appointment Date:06/22/2023 04:00:00 PM Scheduled Provider:Anoop Almanzar MD Location:[facility] Appointment Type: Open Appointment Date:06/29/2023 02:30:00 PM Scheduled Provider:Tonio Levy MD Location:[facility] Dig[facility]ive [facility] Appointment Type:[facility] New Patient Appointment Date:07/14/2023 09:30:00 AM Scheduled Provider: Location:[facility] Appointment Type:FM Medicare Wellness Subsequent [facility] evaluation + Plan note Future Appointments Appointment Date:08/10/2023 03:00:00 PM Scheduled Provider:Camelia LOW CNP Location:.[facility] Appointment Type:Cardiology ED Follow Up (FT) [facility] Health evaluation + Plan note Future Appointments Appointment Date:11/13/2023 12:15:00 PM Scheduled Provider:Rahul Salas MD Location:[facility] Appointment Type:Cardiology Follow Up (FT) [facility] evaluation + Plan note Future Appointments Appointment Date:05/16/2024 01:00:00 PM Scheduled Provider:Rahul Salas MD Location:[facility] Appointment Type:[facility]iology [facility] ([facility] noteNo InformationNort [employer] Other evaluation noteNo assessment information available [facility] Work Phone: evaluation note* Diagnosis Nausea- Primary [...] heart Hospitalization History see above surgical hx [employer] Other Hospital course Narrative No data available for this section [facility] No data available for this section [facility] No data available for this section [facility] Summary Purpose Family History No [...] this section No Family History Records Found Advance Directives No [...] section and content) DATE CREATED AUTHOR 02/13/2018 [facility] DATE CREATED AUTHOR AUTHOR'S ORGANIZ ATION 09/21/2022 [facility] DATE CREATED AUTHOR AUTHOR'S ORGANIZ ATION 08/27/2023 [facility] DATE CREATED AUTHOR AUTHOR'S ORGANIZ ATION 08/29/2023 [facility] DATE CREATED AUTHOR AUTHOR'S ORGANIZ ATION 09/29/2023 [facility] DATE CREATED AUTHOR AUTHOR'S ORGANIZ ATION 11/10/2023 [facility] EPIC DATE CREATED AUTHOR AUTHOR'S ORGANIZ ATION 11/14/2023 [facility] REASON FOR VISIT (unrecogniz ed section [...] Santana MD Primary Care Provider Active Rashard Aguilar MD Attending Provider Active Team Status: Active [...] 12, 2023 End: September 12, 2023 Rashard Aguilar MD Attending Provider Active St art: September 12, 2023 End: September 12, 2023 Fur Nailer Relationship Specialty Start Date End Date Shaikh [...] BE BASED ON THE PRIMARY CLINICAL RECORDS. [facility]. provides no warranty or guarantee of the accuracy or completeness of information in this document.
[2023-12-03 16:56] LABS: Bilirubin Urine NEGATIVE (NEGATIVE); Blood Urine TRACE-I (NEGATIVE); Clarity Urine CLEAR (CLEAR); Color Urine DK. YELLOW (YELLOW); Glucose Urine UA NEGATIVE (NEGATIVE); Ketones Urine NEGATIVE (NEGATIVE); Leukocyte Esterase Urine LARGE (NEGATIVE); Nitrite Urine POSITIVE (NEGATIVE); Protein Urine TRACE mg/dL (NEG/TRACE); pH Urine 7.5 (5.0-9.0)
[2023-12-03 16:57] LABS: Urine Microscopic Indicated YES
[2023-12-03 17:10] LABS: RBC Urine 0-2 #/HPF (0-2); WBC Urine 50-75 #/HPF (NONE SEEN)
[2023-12-03 17:11] LABS: Bacteria Urine TRACE #/HPF (NONE SEEN); Cast Seen? NONE SEEN #/LPF (NONE SEEN); Crystals Seen? None Seen #/HPF (None Seen); Mucus Urine TRACE (NONE SEEN); Squamous Epithelial Cell Urine FEW #/LPF (NONE/RARE); Urine Culture Indicated YES
--- NOTE | 2023-12-03 17:33 | ED_ITS ---
HPI HPI - General Adult General Chief complaint: Urogenital-Female Stated complaint: BLADDER ISSUES AND DIARREAH Time Seen by Provider: 12/03/23 16:32 Source: patient Mode of arrival: walk-in Limitations: no limitations History of Present Illness HPI narrative: Patient is a 78-year-old female who presents to the emergency department for concern of urinary issues. She states last week she believes her IBS flared up and she had multiple episodes of diarrhea. She took Imodium and no longer has the diarrhea. She states in the last 2 days she has noted an increase in bladder pressure and was going to see her PCP Tomorrow, but states that she was concerned because her blood pressure was elevated. She has a history of high blood pressure and takes medication for this at home. She has had no fevers, chills, chest pain, shortness of breath, nausea, vomiting, flank or back pain. She has no abdominal pain, blood in her urine. She states she has a history of interstitial cystitis and has a urologist in [place] but states she has not had a UTI in a while . Related Data Home Medications ?Medication ?Instructions ?Recorded ?Confirmed alprazolam 0.5 mg tablet 0.5 mg PO BID 12/03/23 12/03/23 carvedilol 12.5 mg tablet 12.5 mg PO DAILY 12/03/23 12/03/23 hydrocodone 5 mg-acetaminophen 325 1 tab PO Q8H PRN pain 12/03/23 12/03/23 mg tablet hydroxychloroquine 200 mg tablet 200 mg PO DAILY 12/03/23 12/03/23 levothyroxine 100 mcg tablet 100 mcg PO DAILY 12/03/23 12/03/23 trospium 20 mg tablet 20 mg PO Q24H 12/03/23 12/03/23 vibegron 75 mg tablet (Gemtesa) 75 mg PO DAILY 12/03/23 12/03/23 Previous Rx's ?Medication ?Instructions ?Recorded ondansetron 4 mg disintegrating 4 mg PO Q8H PRN nausea and 08/06/23 tablet vomiting 4 days #16 tabs cephalexin 500 mg capsule 500 mg PO Q8H 7 days #21 caps 12/03/23 ondansetron 4 mg disintegrating 4 mg PO Q6H PRN nausea and 12/03/23 tablet vomiting #12 tabs Allergies Allergy/AdvReac Type Severity Reaction Status Date / Time prochlorperazine AdvReac Severe Vomiting Verified 07/18/23 13:21 [From Compazine] Opioid HPI Opioid Management Most Recent Opioid Data: No Data to Display Review of Systems ROS Constitutional Denies: fever or chills Ears, nose, mouth, and throat Denies: throat pain or nasal congestion Cardiovascular Denies: chest pain Respiratory Denies: shortness of breath or cough Gastrointestinal Denies: abdominal pain, nausea or vomiting Genitourinary Reports: pelvic pain Musculoskeletal Denies: back pain or neck pain Neurological Denies: headache Hematologic/Lymphatic Denies: easy bruising or easy bleeding PFSH PFSH Social History Smoking status: Never smoker Exam Narrative Exam Narrative: Gen.: Awake, alert, in no distress Head: Normocephalic, atraumatic ENT: Moist mucous membranes Respiratory: No respiratory distress, lungs clear bilaterally Cardio: Regular rate and rhythm Gastrointestinal: Abdomen is soft, nondistended and nontender to palpation Extremities: Moves extremities equally Psych: Normal mood and affect Neuro: No focal neuro deficit Skin: Warm, dry, intact Constitutional Vital Signs, click to edit/add: Last Vital Signs Temp 98.3 F 12/03/23 16:40 Pulse 93 H 12/03/23 16:40 Resp 16 12/03/23 16:40 BP 180/98 H 12/03/23 16:40 Pulse Ox 99 12/03/23 16:40 O2 Del Method Room Air 12/03/23 16:40 Course Vital Signs Vital signs: Vital Signs Temperature 98.3 F 12/03/23 16:40 Pulse Rate 93 H 12/03/23 16:40 Respiratory Rate 16 12/03/23 16:40 Blood Pressure 180/98 H 12/03/23 16:40 Pulse Oximetry 99 12/03/23 16:40 Oxygen Delivery Method Room Air 12/03/23 16:40 Temperature 98.3 F 12/03/23 16:40 Pulse Rate 93 H 12/03/23 16:40 Respiratory Rate 16 12/03/23 16:40 Blood Pressure 180/98 H 12/03/23 16:40 Pulse Oximetry 99 12/03/23 16:40 Oxygen Delivery Method Room Air 12/03/23 16:40 Medical Decision Making MDM Narrative Medical decision making narrative: Repeat manual blood pressure is 142/90. CBC and BMP are unremarkable and urinary tract infection Is noted on urine specimen. Patient is in no distress, no evidence of sepsis and abdomen and flanks are nontender. She will be treated with Keflex. She has Xanax at home to help with her anxiety. She has an appointment with her PCP tomorrow. Return to the emergency department if symptoms change or worsen. Medical Records Medical records reviewed: Yes I reviewed the patient's medical records Lab Data Lab results reviewed: Yes I reviewed the patient's lab results Labs: Lab Results 12/03/23 12/03/23 Range/Units 16:45 17:52 WBC 7.0 (4.0-11.0) 10^3/uL RBC 4.37 (4.20-5.40) 10^6/uL Hgb 13.4 (12.0-16.0) g/dL Hct 42.9 (36.0-48.0) % MCV 98.2 (81.0-99.0) fL MCH 30.7 (26.7-34.0) pg MCHC 31.2 (29.9-35.2) g/dL RDW 12.2 (11.0-15.0) % Plt Count 204 (150-450) 10^3/uL MPV 9.1 L (9.5-13.5) fL Neut % (Auto) 61.9 (43.0-75.0) % Lymph % (Auto) 27.2 (20.5-60.0) % [place] % (Auto) 7.9 (1.7-12.0) % Eos % (Auto) 2.3 (0.9-7.0) % Baso % (Auto) 0.6 (0.2-2.0) % Neut # (Auto) 4.3 (1.4-6.5) 10^3/uL Lymph # (Auto) 1.9 (1.2-3.8) 10^3/uL [place] # (Auto) 0.6 (0.3-0.8) 10^3/uL Eos # (Auto) 0.2 (0.0-0.7) 10^3/uL Baso # (Auto) 0.0 (0.0-0.1) 10^3/uL Abs Immat Gran (auto) 0.01 (0.00-0.03) 10^3/uL Imm/Tot Granulo (auto) 0.1 (0.0-0.5) % Sodium 146 H (136-145) mmol/L Potassium 4.3 (3.5-5.1) mmol/L Chloride 107 (98-107) mmol/L Carbon Dioxide 30.9 (21.0-32.0) mmol/L Anion Gap 12.4 BUN 15.0 (7.0-18.0) mg/dL Creatinine 0.94 (0.55-1.02) mg/dL Est GFR ( Amer) >60 (>=60) Est GFR (Non-Af Amer) 58 L (>=60) BUN/Creatinine Ratio 16.0 Glucose 94 (74-106) mg/dL Calcium 9.6 (8.5-10.1) mg/dL Urine Color Dk. yellow (YELLOW) Urine Clarity Clear (CLEAR) Urine pH 7.5 (5.0-9.0) Ur Specific [place] 1.010 (1.005-1.025) Urine Protein Trace (NEG/TRACE) mg/dL Urine Glucose (UA) Negative (NEGATIVE) mg/dL Urine Ketones Negative (NEGATIVE) mg/dL Urine Occult Blood Trace-i (NEGATIVE) Urine Nitrite Positive A (NEGATIVE) Urine Bilirubin Negative (NEGATIVE) Urine Urobilinogen 1.0 (0.2-1.0) EU/dL Ur Leukocyte Esterase Large A (NEGATIVE) Urine RBC 0-2 (0-2) #/HPF Urine WBC 50-75 A (NONE SEEN) #/HPF Ur Squamous Epith Cells Few A (NONE/RARE) #/LPF Urine Crystals None seen (None Seen) #/HPF Urine Bacteria Trace A (NONE SEEN) #/HPF Urine Casts None seen (NONE SEEN) #/LPF Urine Mucus Trace A (NONE SEEN) Ur Culture Indicated? Yes Discharge Plan Discharge Stand Alone Forms: Portal Instructions Chief Complaint: Urogenital-Female Clinical Impression: Acute UTI Patient Disposition: Home, Self-Care Time of Disposition Decision: 18:27 Condition: Good Prescriptions / Home Meds: New cephalexin 500 mg capsule 500 mg PO Q8H 7 Days Qty: 21 0RF ondansetron 4 mg tablet,disintegrating 4 mg PO Q6H PRN (Reason: nausea and vomiting) Qty: 12 0RF No Action ondansetron 4 mg tablet,disintegrating 4 mg PO Q8H PRN (Reason: nausea and vomiting) 4 Days Qty: 16 0RF alprazolam 0.5 mg tablet 0.5 mg PO BID carvedilol 12.5 mg tablet 12.5 mg PO DAILY hydrocodone-acetaminophen 5-325 mg tablet 1 tab PO Q8H PRN (Reason: pain) hydroxychloroquine 200 mg tablet 200 mg PO DAILY levothyroxine 100 mcg tablet 100 mcg PO DAILY trospium 20 mg tablet 20 mg PO Q24H Gemtesa 75 mg tablet 75 mg PO DAILY Print Language: Sami Instructions: Urinary Tract Infection in Women (ED) Referrals: Shaikh Leung MD [Primary Care Provider] - 1 week
[2023-12-03] MEDS: CEPHALEXIN 500 MG CAPSULE PO ×2 (17:37→18:48)
[2023-12-03 18:00] LABS: Basophils Percent Auto 0.6 % (0.2-2.0); Eosinophils Absolute Auto 0.2 10^3/uL (0.0-0.7); Eosinophils Percent Auto 2.3 % (0.9-7.0); Hematocrit 42.9 % (36.0-48.0); Hemoglobin 13.4 g/dL (12.0-16.0); Immature Granulocytes Abs Auto 0.01 10^3/uL (0.00-0.03); Immature Granulocytes Pct Auto 0.1 % (0.0-0.5); Lymphocytes Absolute Auto 1.9 10^3/uL (1.2-3.8); Lymphocytes Percent Auto 27.2 % (20.5-60.0); Mean Corpuscular HGB Conc 31.2 g/dL (29.9-35.2); Mean Corpuscular Hemoglobin 30.7 pg (26.7-34.0); Mean Corpuscular Volume 98.2 fL (81.0-99.0); Mean Platelet Volume 9.1 fL (9.5-13.5); Monocytes Absolute Auto 0.6 10^3/uL (0.3-0.8); Monocytes Percent Auto 7.9 % (1.7-12.0); Neutrophils Absolute Auto 4.3 10^3/uL (1.4-6.5); Neutrophils Percent Auto 61.9 % (43.0-75.0); Platelet Count 204 10^3/uL (150-450); Red Blood Count 4.37 10^6/uL (4.20-5.40); Red Cell Distribution Width 12.2 % (11.0-15.0)
[2023-12-03 18:08] LABS: Anion Gap 12.4; Calcium 9.6 mg/dL (8.5-10.1); Carbon Dioxide 30.9 mmol/L (21.0-32.0); Chloride 107 mmol/L (98-107); Estimated GFR (African America >60 (>=60); Estimated GFR (Non-African Ame 58 (>=60); Glucose 94 mg/dL (74-106); Potassium 4.3 mmol/L (3.5-5.1); Sodium 146 mmol/L (136-145)
[2023-12-03 18:29] VITALS: BP 142/90
== END 2023-12-03 18:49 | disposition home or self-care (01) ==
PROVIDERS: Physician Assistant; Emergency Provider Emergency Medicine; PCP Internal Medicine
DX: N39.0 Urinary tract infection, site not specified (principal); K58.9 Irritable bowel syndrome, unspecified; Z79.899 Other long term (current) drug therapy; Z79.890 Hormone replacement therapy
CPT/HCPCS: 36415; 80048; 81001; 85025; 87086; 99283

== ENCOUNTER 2023-12-21 06:04 | Emergency (ER) | payer MEDICARE, MEDICAID, SELFPAY ==
[2023-12-21 06:12] VITALS: BP 162/106; PULSE 85; TEMP 36.5; O2SAT 97; BMI 26.4
--- OUTSIDE RECORDS SUMMARY | 2023-12-21 06:14 | XMS_ITS | CCD ---
Author Organization [facility] Care Team Providers Care Scrap Worker Name Role Phone WILIAN, LISET Unavailable Unavailable WILIAN, LISET Unavailable Unavailable SANTANA, ASHUTOSH Unavailable Unavailable MAX, ASHUTOSH Unavailable Unavailable Mary Toure Unavailable MD Ashutosh Santana Primary Care Provider MD Rashard Aguilar Attending Provider MAX, DR ASHUTOSH Esparza Primary [...] Unavailable SANTANA, DR ASHUTOSH Esparza Attending Unavailable Max, MD Ashutosh Esparza Primary Care Provider MD Rashard Aguilar Attending Provider Lidya Post Primary Care Physician Shayy Garza Unavailable NONE, XXXX Primary Care Physician Unavailab le NO FAMILY, PHYSICIAN Primary Care Provider Unava ilable SUMAN Toure Attending Provider [phone] ABIGAIL Garza Attending Provider PILI VELASCO Referring Unavailable ASHUTOSH SANTANA Primary Care Unavailable SUMAN Toure Attending Provider MD Rashard Aguilar Attending Provider Mary Toure Admitting Unavailable Mary Toure Attending Unavailable NO FAMILY, PHYSICIAN Primary Care Unavailable Rashard Aguilar Attending Unavailable Ashutosh Santana Primary Care Unavailable Rashard Aguilar Admitting Unavailable Rashard Aguilar Attending Unavailable Ashutosh Santana Primary Care Unavailable Lauren, Rashard Admitting Unavailable Garza, Shayy L Admitting Unavailable Greg Shayy L Attending Unavailable NO FAMILY, PHYSICIAN Primary Care Unavailable Rashard Aguilar Attending Unavailable NO FAMILY, PHYSICIAN Primary Care Unavailable Haladay, Rashard Admitting Unavailable Garza, Shayy L Admitting [...] Contreras Attending Unavailable Gem Contreras Attending Unavailable Lidya Post Attending Unavailable Gem Contreras Attending Unavailable Lidya Post Attending Unavailable Lidya Post Attending Unavailable Lidya Post Attending Unavailable NONE, XXXX Referring Unavailable Rahul Salas Attending Unavaila Lidya Valerio Attending Unavailable Lidya Post Attending Unavailable Lidya Post Attending Unavailable NONE, XXXX Referring Unavailable Rahul Salas Attending Unavaila Rahul Dillon Admitting Unavaila Lidya Valerio Referring Unavailable Rahul Salas Attending Unavaila Rahul Dillon Admitting Unavaila Rahul Dillon Consulting Unavaila Rahul Dillon Attending Unavaila Rahul Dillon Referring Unavaila Rahul Dillon Consulting Unavaila Rahul Dillon Consulting Unavaila Franco Zimmer Admitting Unavailable Franco SCHERER Attending Unavailable Franco SCHERER Referring Unavailable Camelia LOW Admitting Unavailable NONE, XXXX Referring Unavailable Rahul Salas Attending UnavailLidya Pierce Referring Unavailable Rahul Salas Attending Unavaila Tonio Garvey Attending Unavaila MICHAEL Cruz Attending Unavailable LIDYA POST Referring Unavailable LIDYA POST Primary Care Unavailable MICHAEL YOUNG Attending Unavailable LIDYA POST Referring Unavailable LIDYA POST Primary Care Unavailable Allergies Allergy Classification Reported Allergen(s) Allergy Type Date of Onset Reaction(s) Facility (20 sources) prochlorperazine; 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: [compazine] Drug Allergy 12-12-19 12 AOF, throat swelling, unknown [facility] Repository (10 sources) Ciprofloxacin Drug Allergy 05-15-20 20 rash, Unknown [facility] Other (1 source) Levamisole Drug Allergy [facility] Repository (8 sources) atorvastatin; 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: [atorvastatin] Drug Allergy unknown [facility] (10 sources) Solifenacin; 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: [solifenacin] Drug Allergy 04-04-20 22 Unknown [facility] (1 source) Ciprofloxacin Drug Allergy 08-17-20 23 [facility] Repository (2 sources) Prochlorperazine; 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: [PROCHLORPERAZINE] Drug Allergy 01-04-20 17 [facility] Repository (1 source) atorvastatin Drug Allergy 08-24-19 24 Other [facility] (2 sources) busPIRone; 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: [BUSPIRONE] Drug Allergy 11-17-19 22 Unknown [facility] (2 sources) Nitrofurantoin; 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: [NITROFURANTOIN MACROCRYSTAL] Drug Allergy 01-04-20 17 [facility] (1 source) Nitrofurantoin Drug Allergy 10-17-19 17 [facility] (1 source) Prochlorperazine Drug Allergy 09-29-19 07 Anaphylaxis, GI intolerance, Other, Swelling, Unknown [facility] (1 source) Ciprofloxacin; 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: [CIPROFLOXACIN HCL] Drug Allergy 01-04-20 17 [facility] Repository Medications Current Medications Medication Drug Class(es) Dates Sig (Normalized) Sig (Original) acetaminophen 325 mg / HYDROcodone bitartrate 5 mg oral tablet (8 sources) Opioid Agonist Start: 06-22-2023 acetaminophen-hydr ocodone 325 mg-5 mg oral tablet 1 tab(s), Oral, q6hr, 90 tab(s), Refill(s) 0, [facility] #[id number], 167, cm, 06/22/23 15:56:00 EDT, Height/Length Dosing, 75.7, kg, 06/22/23 15:56:00 EDT, Weight Dosing Start Date: 06/22/23 Status: Ordered Start: 05-30-2023 acetaminophen- hydrocodone 325 mg-5 mg oral tablet 1 tab(s), Oral, q6hr, 90 tab(s), Refill(s) 0, [facility] #[id number], 167, cm, 05/30/23 14:35:00 EDT, Height/Length Dosing, 77.1, kg, 05/30/23 14:35:00 EDT, Weight Dosing Start Date: 05/30/23 Status: Ordered Start: 03-10-2023 acetaminophen- hydrocodone 325 mg-5 mg oral tablet 1 tab(s), Oral, q6hr, 90 tab(s), Refill(s) 0, [facility] #[id number], 167, cm, 12/20/22 16:33:00 EDT, Height/Length Dosing, 82, kg, 12/20/22 16:33:00 EDT, Weight Dosing Start Date: 03/10/23 Status: Ordered take 1 tablet by theo th in the morning, then take 1 tablet by mouth in the evening, then take 1 tablet by mouth at bedtime HYDROcodone-acetaminophen (Saline) 5-325 MG tablet Take 1 tablet by [...] anxiety, # 10 tab(s), Refills(s) 0, Pharmacy: [facility] #[id number], 167, cm, 05/25/23 15:36:00 EDT, Height/Length Dosing, 76.6, kg, 05/25/23 15:36:00 EDT, Weight Dosing Start Date: 05/29/23 Status: Ordered Start: 04-25-2023 take 1 tablet by theo three times daily as needed for anxiety alprazolam 0.5 mg Tab 0.5 mg = 1 tab(s), Oral, TID, PRN for anxiety, # 30 tab(s), Refills(s) 0, Pharmacy: [facility] #[id number], 167, cm, 04/20/23 14:55:00 EDT, Height/Length Dosing, 78.6, kg, 04/20/23 14:55:00 EDT, Weight Dosing Start Date: 04/25/23 Status: Ordered Start: 03-28-2023 take 1 tablet by theo three times daily as needed for anxiety alprazolam 0.5 mg Tab 0.5 mg = 1 tab(s), Oral, TID, PRN for anxiety, # 30 tab(s), Refills(s) 0, Pharmacy: [facility] #[id number], 167, cm, 03/28/23 13:02:00 EDT, Height/Length Dosing, [...] BID, # 60 tab(s), Refills(s) 3, [facility]: [id number], 170, cm, 08/15/23 14:27:00 EST, Height/Length Dosing, [...] for 7 28 Jul, 2023 Active Ergocalciferol (16 sources) Provitamin D2 Compound [...] elías, Rectal, TID, 10 gram, Refill(s) 0, [facility] #[id number], 167, cm, 03/20/23 11:45:00 EDT, Height/Length Dosing, [...] mg disintegrating oral tablet (8 sources) Start: 3 take 1 tablet by mouth four times daily hyoscyamine 0.125 mg oral tablet, disintegrating 0.125 mg = 1 tab(s), Oral, QID, # 60 tab(s), Refills(s) 1, Pharmacy: [facility] #[id number], 167, cm, 06/01/23 14:55:00 EDT, Height/Length Dosing, [...] qAM, # 30 tab(s), Refills(s) 6, Pharmacy: [facility] #[id number], 167, cm, 05/25/23 15:36:00 EDT, Height/Length Dosing, 76.6, kg, 05/25/23 15:36:00 EDT, Weight Dosing Start Date: 05/26/23 Status: Ordered levothyroxine sodium 0.1 mg oral tablet (17 sources) l-Thyroxine Start: 11-30-2022 take 1 tablet by mouth once daily levothyroxine 100 mcg (0.1 mg) Tab 100 mcg = 1 tab(s), Oral, Daily, # 90 tab(s), Refills(s) 3, Pharmacy: [facility] #[id number], 167.4, cm, 11/02/22 15:26:00 EDT, Height/Length Dosing, [...] Daily, # 30 tab(s), Refills(s) 3, Pharmacy: [facility] #[id number], 170, cm, 08/15/23 14:27:00 EST, Height/Length Dosing, [...] day(s), # 21 tab(s), Refills(s) 0, Pharmacy: [facility] #[id number], 167, cm, 04/20/23 14:55:00 EDT, Height/Length Dosing, [...] q8hr, # 10 tab(s), Refills(s) 1, Pharmacy: [facility] #[id number], 167, cm, 06/01/23 14:55:00 EDT, Height/Length Dosing, [...] 0 Start Date: 11/01/22 Status: Ordered PLACARD (12 sources) Start: 05-03-2023 YAMILKA PRATHER, See [...] Coronary arteriosclerosis; 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: [Atherosclerotic heart disease of [place] coronary artery without angina pectoris] Onset: 4 [...] 11-01-2022 Chronic Genitourinary symptoms and ill-defined conditions (1 source) Urge incontinence; 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: [Urge incontinence] Onset: 4 Chronic Genitourinary symptoms and ill-defined conditions (10 [...] current use of opiate analgesic drug; 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: [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] Onset: 4 [...] disorders; other back problems (7 sources) Sciatica 03-14-2023 Episodic Systemic lupus erythematosus and connective tissue [...] 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: [Interstitial pulmonary disease, unspecified] Onset: 3 Unclassified (1 source) Bladder Problem Onset: 4 Unclassified (1 source) Nephrolithiasis Onset: 4 Urinary tract infections (2 sources) Chronic interstitial cystitis; 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: [Interstitial cystitis (chronic) [...] Interpretation Reference Range Facility Heart and Vascular Office/[facility] Noteon 12-05-2023 Heart and Vascular Office/Clinic Note History of Present Illness Tea Rahman is a 78-year-old female who presents today for a follow-up visit. Her eldest daughter and an adult male accompanied her during the visit. The patient reports significant improvement of health condition. She had shingles for which she consulted with Dr. Leung of internal medicine at [place]. This condition caused back myalgia, and she had a challenging period. She notes a significant improvement from shingles despite a gradual recovery. Her shingles resulted in bladder and bowel issues, which have been her most distressing problems and are currently her primary concerns. She is scheduled for a follow-up appointment with a specialist in [place] in 11/2023 to address her bladder issues. It has been a year since she underwent surgery to remove bladder stones. Her primary care physician is managing her pain medication. Her blood pressure has remained stable, except for when she had shingles in which she experienced fluctuations in her readings. Her systolic blood pressure has consistently been below 140 mmHg, with today's in-office measurement at 138 mmHg. 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 She experiences episodes of depression, though these are improving. She has resumed taking Xanax. Her younger daughter facilitated a consultation with a psychiatrist in [place], who manages her Xanax regimen. The psychiatrist has indicated that her current medication is insufficient, but she expresses disagreement with him. She has been increasing her Xanax intake in response to the events going on around her, though she prefers not to do so. Her psychiatrist prescribed her 2 Xanax a day, but she takes 1.5 tablets a day instead and occasionally takes half in the morning and another half in the evening depending on the kind of day she is having. She slightly increased her Xanax intake during her shingles episode. She is scheduled for telemedicine consultations with her psychiatrist every 3 months. The patient's is on dialysis thrice weekly, and his condition is not improving. Review of Systems Constitutional: no fever, no sweats, no weakness Skin: no rash, no lesions, no bruising/petechiae ENMT: no sore throat, no congestion, no hoarseness Respiratory: no shortness of breath, no cough, no orthopnea, no wheezing Cardiovascular: no chest pain, no palpitations, no edema Gastrointestinal: positive for bowel issues, no nausea, no vomiting, no diarrhea, no GI bleeding Genitourinary: positive for bladder issues, no anuria/oliguria no hematuria Musculoskeletal: no back pain, no trauma Neurologic: no headache, no dizziness, no numbness, no weakness Psychiatric: no sleeping problems, no irritability, positive for anxiety/depression. Heme/Lymph: no bleeding tendency, no bruising tendency Allergy/Immunologic: no recurrent infections, no impaired immunity Additional ROS info: Except as noted in the above Review of Systems and in the History of Present Illness all other systems have been reviewed and are negative or noncontributory Physical Exam General: alert, no acute distress Skin: warm, [...] judgement, normal psychiatric thoughts. Assessment/Plan 1. Hypertension. Her blood pressure is well controlled. We also briefly discussed drug sensitivity and the process of withdrawal to provide reassurance regarding her intake of Xanax. Follow Up: The patient will follow up as needed. ATTESTATION: Portions of this record may have been created with voice recognition artificial intelligence software, specifically [employer], [employer] and or [employer]). Substitutions may have occurred due to the inherent limitations of voice recognition and artificial intelligence software. Documentation services were performed after patient or guardian consented to allow [employer] to record this visit. DARVIN discharge specialist and provider reviewed before signing. DARVIN: Andrea Gonzalez Follow-up No qualifying data available Problem List/Past Medical History Ongoing Adjustment disorder with anxious mood Anemia Anxiety Atherosclerosis aorta Bladder stone BMI 29.0-29.9,adult CAD in [place] artery Complex posttraumatic stress disorder Disorder of vitami (more content not included)... Normal [facility] Comment on above: Result Comment: Elec tronically Signed By: Portillo PIPER, Rahul Varner\.br\Date and Time Signed: 12/05/23 06:20 EDT\.br\Electronically Co-Signed By: Andrea Gonzalez.br\Date and Time Co-Signed: 11/13/23 14:21 EDT Consent for Treatmenton 10-20 Consent for Treatment [id number] 0TIFF Normal [facility] Physician Orderon 11-13-2023 Physician Order [id number]. 00TIFF Normal [facility] Amorphous urine sedimentOrde red By: Rashard Aguilar on 09-12-2023 Amorphous sediment LM Ql (Urine sed) See comment Negative [facility] Comment on above: Unable to obtain acc urate result due to color interference. Automated epithelial cells c ount in urine sediment (number/area)Ordered By: Rashard Aguilar on 09-12-2023 Epithelial cells Auto (Urine sed) [#/Area] 5-9 [HPF] 0-2 [facility] Automated erythrocytes count in urine sediment (number/area)Ordered By: Rashard Aguilar on 09-12-2023 RBC Auto (Urine sed) [#/Area] 3-4 [HPF] 0-4 [facility] Automated leukocytes count i n urine sediment (number/area)Ordered By: Rashard Aguilar on 09-12-2023 WBC Auto (Urine sed) [#/Area] 50-100 [HPF] 0-4 [facility] Automated urine hyaline cast s count (number/volume)Ordered By: Rashard Aguilar on 09-12-2023 Hyaline casts Auto (U) [#/Vol] 0-1 [LPF] 0-1 [facility] Automated urine specific gra vity by refractometryOrdered By: Rashard Aguilar on 09-12-2023 Specific gravity Refractometry automated (U) [Rel density] 1.028 1.001-1.030 [facility] Basophils Auto (Bld) [#/Vol] Ordered By: Rashard Aguilar on 09-12-2023 Basophils (Bld) [#/Vol] 0.0 10*3/uL 0.0-0.2 [facility] Basophils/100 WBC Auto (Bld) Ordered By: Rashard Aguilar on 09-12-2023 Basophils/100 WBC (Bld) 0.8 % . [facility] Bilirubin Auto test strip Ql (U)Ordered By: Rashard Aguilar on 09-12-2023 Bilirubin Ql (U) See comment Negative [facility] Comment on above: Unable to obtain acc urate result due to color interference. C reactive protein [Mass/vol ume] in Serum or PlasmaOrdered By: Rashard Aguilar on 09-12-2023 CRP [Mass/Vol] 0.6 mg/dL 0.0-0.5 [facility] C-Reactive Proteinon 024 C-Reactive Protein 0.6 mg/dL High 0.0-0.5 [facility] Comment on above: Result Comment: PERF ORMED BY: [place] [address] PATHOLOGIST [employer] MAINTENANCE KEYON SERNA M.D. Performed By: #### C BC, ADDONUAPLUS, ESR, CUU, CRP, CREAT #### [address] #### C4, C3 #### [facility] , Complement C3on 09-12-2023 Complement C3 155 mg/dL Normal 82-167 [facility] Comment on above: Result Comment: Perf ormed at: - [facility] [place] [id number] Insulator Tester: Paul Dumont PhD, Phone: [phone] Performed By: #### C BC, ADDONUAPLUS, ESR, CUU, CRP, CREAT #### [place] [address] [place] #### C4, C3 #### [facility] , Complement C4on 09-12-2023 Complement C4 34 mg/dL Normal 12-38 [facility] Comment on above: Result Comment: PERF ORMED BY: [place] [address] PATHOLOGIST [employer]KEEP[employer] MAINTENANCE KEYON SERNA M.D. Performed By: #### C BC, ADDONUAPLUS, ESR, CUU, CRP, CREAT #### [place] [address] [place] #### C4, C3 #### [facility] , Complete Blood Count Auto Di ffon 09-12-2023 Basophils (Bld) [#/Vol] 0.0 10*3/uL Normal 0.0-0.2 [facility] Comment on above: Performed By: #### C BC, ADDONUAPLUS, ESR, CUU, CRP, CREAT #### [place] [address] [place] #### C4, C3 #### [facility] , Basophils/100 WBC (Bld) 0.8 % Normal . [facility] Comment on above: Performed By: #### C BC, ADDONUAPLUS, ESR, CUU, CRP, CREAT #### [address] #### C4, C3 #### [facility] , Eosinophils (Bld) [#/Vol] 0.2 10*3/uL Normal 0.0-0.45 [facility] Comment on above: Performed By: #### C BC, ADDONUAPLUS, ESR, CUU, CRP, CREAT #### [place] [address] [place] #### C4, C3 #### [facility] , Eosinophils/100 WBC (Bld) 4.0 % Normal . [facility] Comment on above: Performed By: #### C BC, ADDONUAPLUS, ESR, CUU, CRP, CREAT #### [place] [address] [place] #### C4, C3 #### [facility] , Erythrocyte distribution width (RBC) [Ratio] 14.3 % Normal 11.9-15.3 [facility] Comment on above: Performed By: #### C BC, ADDONUAPLUS, ESR, CUU, CRP, CREAT #### [place] [address] [place] #### C4, C3 #### [facility] , Hematocrit (Bld) [Volume fraction] 39.2 % Normal 34.0-46.4 [facility] Comment on above: Performed By: #### C BC, ADDONUAPLUS, ESR, CUU, CRP, CREAT #### [address] #### C4, C3 #### [facility] , Hemoglobin (Bld) [Mass/Vol] 12.9 g/dL Normal 11.8-15.4 [facility] Comment on above: Performed By: #### C BC, ADDONUAPLUS, ESR, CUU, CRP, CREAT #### [address] #### C4, C3 #### [facility] , Lymphocytes (Bld) [#/Vol] 1.8 10*3/uL Normal 1.00-4.8 [facility] Comment on above: Performed By: #### C BC, ADDONUAPLUS, ESR, CUU, CRP, CREAT #### [address] #### C4, C3 #### [facility] , Lymphocytes/100 WBC (Bld) 31.9 % Normal . [facility] Comment on above: Performed By: #### C BC, ADDONUAPLUS, ESR, CUU, CRP, CREAT #### [place] [address] [place] #### C4, C3 #### [facility] , MCH (RBC) [Entitic mass] 31.1 pg Normal 24.7-34.3 [facility] Comment on above: Performed By: #### C BC, ADDONUAPLUS, ESR, CUU, CRP, CREAT #### [place] [address] [place] #### C4, C3 #### [facility] , MCV (RBC) [Entitic vol] 94.4 fL Normal 80-100 [facility] Comment on above: Performed By: #### C BC, ADDONUAPLUS, ESR, CUU, CRP, CREAT #### [place] [address] [place] #### C4, C3 #### [facility] , Mean Corpuscular HGB Conc 33.0 g/dL Normal 32.0-35.0 [facility] Comment on above: Performed By: #### C BC, ADDONUAPLUS, ESR, CUU, CRP, CREAT #### [place] [address] [place] #### C4, C3 #### [facility] , Monocytes (Bld) [#/Vol] 0.5 10*3/uL Normal 0.0-0.8 [facility] Comment on above: Performed By: #### C BC, ADDONUAPLUS, ESR, CUU, CRP, CREAT #### [place] [address] [place] #### C4, C3 #### [facility] , Monocytes/100 WBC (Bld) 8.5 % Normal . [facility] Comment on above: Performed By: #### C BC, ADDONUAPLUS, ESR, CUU, CRP, CREAT #### [place] [address] [place] #### C4, C3 #### [facility] , Neutrophils (Bld) [#/Vol] 3.1 10*3/uL Normal 1.8-7.7 [facility] Comment on above: Performed By: #### C BC, ADDONUAPLUS, ESR, CUU, CRP, CREAT #### [place] [address] [place] #### C4, C3 #### [facility] , Neutrophils/100 WBC (Bld) 54.8 % Normal . [facility] Comment on above: Performed By: #### C BC, ADDONUAPLUS, ESR, CUU, CRP, CREAT #### [address] #### C4, C3 #### [facility] , NRBC% 0.2 /100{WBC} Normal 0-0.5 [facility] Comment on above: Performed By: #### C BC, ADDONUAPLUS, ESR, CUU, CRP, CREAT #### [address] #### C4, C3 #### [facility] , Platelet mean volume (Bld) [Entitic vol] 7.6 fL Normal 6.3-10.7 [facility] Comment on above: Performed By: #### C BC, ADDONUAPLUS, ESR, CUU, CRP, CREAT #### [place] [address] [place] #### C4, C3 #### [facility] , Platelets (Bld) [#/Vol] 263 10*3/uL Normal 150-450 [facility] Comment on above: Performed By: #### C BC, ADDONUAPLUS, ESR, CUU, CRP, CREAT #### [address] #### C4, C3 #### [facility] , RBC (Bld) [#/Vol] 4.16 10*6/uL Normal 3.60-5.00 [facility] Comment on above: Performed By: #### C BC, ADDONUAPLUS, ESR, CUU, CRP, CREAT #### [place] [address] [place] #### C4, C3 #### [facility] , WBC (Bld) [#/Vol] 5.7 10*3/uL Normal 3.8-11.6 [facility] Comment on above: Performed By: #### C BC, ADDONUAPLUS, ESR, CUU, CRP, CREAT #### [facility] [address] [place] [address] [place] #### C4, C3 #### [facility] , Creatinineon 09-12-2023 Creatinine [Mass/Vol] 0.92 mg/dL Normal 0.60-1.20 [facility] Comment on above: Performed By: #### C BC, ADDONUAPLUS, ESR, CUU, CRP, CREAT #### [facility] [address] [place] [address] [place] #### C4, C3 #### [facility] , GFR/1.73 sq M.predicted MDRD (S/P/Bld) [Vol rate/Area] mL/min/{1.73_m2} Normal [facility] Comment on above: Performed By: #### C BC, ADDONUAPLUS, ESR, CUU, CRP, CREAT #### [facility] [address] [place] [address] [place] #### C4, C3 #### [facility] , Creatinine [Mass/volume] in Serum or PlasmaOrdered By: Rashard Aguilar on 09-12-2023 Creatinine [Mass/Vol] 0.92 mg/dL 0.60-1.20 [facility] Dipstick and Microscopicon 0 09-12-2023 Appearance (U) Slightly Cloudy Critically abnormal Clear [facility] Comment on above: Order Comment: Name Collection Type:: Clean-Voided Midstream Performed By: #### C BC, ADDONUAPLUS, ESR, CUU, CRP, CREAT #### [facility] [address] [place] [address] [place] #### C4, C3 #### [facility] , Bacteria,Urine 2+ High None Seen [facility] Comment on above: Order Comment: Name Collection Type:: Clean-Voided Midstream Performed By: #### C BC, ADDONUAPLUS, ESR, CUU, CRP, CREAT #### [facility] [address] [place] [address] [place] #### C4, C3 #### [facility] , Bilirubin,Urine Normal Negative [facility] Comment on above: Order Comment: Name Collection Type:: Clean-Voided Midstream Result Comment: Unab le to obtain accurate result due to color interference. Performed By: #### C BC, ADDONUAPLUS, ESR, CUU, CRP, CREAT #### [facility] [address] [place] [address] #### C4, C3 #### [facility] , Color (U) [place] Critically abnormal Yellow [facility] Comment on above: Order Comment: Name Collection Type:: Clean-Voided Midstream Performed By: #### C BC, ADDONUAPLUS, ESR, CUU, CRP, CREAT #### [address] #### C4, C3 #### [facility] , Glucose Ql (U) Normal Normal [facility] Comment on above: Order Comment: Name Collection Type:: Clean-Voided Midstream Result Comment: Unab le to obtain accurate result due to color interference. Performed By: #### C BC, ADDONUAPLUS, ESR, CUU, CRP, CREAT #### [facility] [address] [place] [address] [place] #### C4, C3 #### [facility] , Hyaline Casts,Urine 0-1 Normal 0-1 [facility] Comment on above: Order Comment: Name Collection Type:: Clean-Voided Midstream Performed By: #### C BC, ADDONUAPLUS, ESR, CUU, CRP, CREAT #### [facility] [address] [place] [address] [place] #### C4, C3 #### [facility] , Ketones Ql (U) Normal Negative [facility] Comment on above: Order Comment: Name Collection Type:: Clean-Voided Midstream Result Comment: Unab le to obtain accurate result due to color interference. Performed By: #### C BC, ADDONUAPLUS, ESR, CUU, CRP, CREAT #### [address] #### C4, C3 #### [facility] , Leukocyte esterase Test strip Ql (U) Normal Negative [facility] Comment on above: Order Comment: Name Collection Type:: Clean-Voided Midstream Result Comment: Unab le to obtain accurate result due to color interference. Performed By: #### C BC, ADDONUAPLUS, ESR, CUU, CRP, CREAT #### [address] #### C4, C3 #### [facility] , Nitrite,Urine Normal Negative [facility] Comment on above: Order Comment: Name Collection Type:: Clean-Voided Midstream Result Comment: Unab le to obtain accurate result due to color interference. Performed By: #### C BC, ADDONUAPLUS, ESR, CUU, CRP, CREAT #### [address] #### C4, C3 #### [facility] , Occult Blood,Urine Normal Negative [facility] Comment on above: Order Comment: Name Collection Type:: Clean-Voided Midstream Result Comment: Unab le to obtain accurate result due to color interference. Performed By: #### C BC, ADDONUAPLUS, ESR, CUU, CRP, CREAT #### [place] [address] [place] #### C4, C3 #### [facility] , pH,Urine Normal 5.0-9.0 [facility] Comment on above: Order Comment: Name Collection Type:: Clean-Voided Midstream Result Comment: Unab le to obtain accurate result due to color interference. Performed By: #### C BC, ADDONUAPLUS, ESR, CUU, CRP, CREAT #### [place] [address] [place] #### C4, C3 #### [facility] , Protein,Urine Normal Negative [facility] Comment on above: Order Comment: Name Collection Type:: Clean-Voided Midstream Result Comment: Unab le to obtain accurate result due to color interference. Performed By: #### C BC, ADDONUAPLUS, ESR, CUU, CRP, CREAT #### [address] #### C4, C3 #### [facility] , RBC,Urine 3-4 Normal 0-4 [facility] Comment on above: Order Comment: Name Collection Type:: Clean-Voided Midstream Performed By: #### C BC, ADDONUAPLUS, ESR, CUU, CRP, CREAT #### [address] #### C4, C3 #### [facility] , Specificy [place],Urine 1.028 Normal 1.001-1.030 [facility] Comment on above: Order Comment: Name Collection Type:: Clean-Voided Midstream Performed By: #### C BC, ADDONUAPLUS, ESR, CUU, CRP, CREAT #### [address] #### C4, C3 #### [facility] , Squamous Epithelial Cell,Urine 5-9 High 0-2 [facility] Comment on above: Order Comment: Name Collection Type:: Clean-Voided Midstream Performed By: #### C BC, ADDONUAPLUS, ESR, CUU, CRP, CREAT #### [address] #### C4, C3 #### [facility] , Urobilinogen,Urine Normal Normal [facility] Comment on above: Order Comment: Name Collection Type:: Clean-Voided Midstream Result Comment: Unab le to obtain accurate result due to color interference. Performed By: #### C BC, ADDONUAPLUS, ESR, CUU, CRP, CREAT #### [address] [place] [address] [place] #### C4, C3 #### [facility] , WBC,Urine 50-100 High 0-4 [facility] Comment on above: Order Comment: Name Collection Type:: Clean-Voided Midstream Performed By: #### C BC, ADDONUAPLUS, ESR, CUU, CRP, CREAT #### [facility] [address] [place] [address] #### C4, C3 #### [facility] , Yeast,Urine Rare Critically abnormal None Seen [facility] Comment on above: Order Comment: Name Collection Type:: Clean-Voided Midstream Result Comment: PERF ORMED BY: [place] [address] PATHOLOGIST [employer]TENA[employer] KEYON SERNA M.D. Performed By: #### C BC, ADDONUAPLUS, ESR, CUU, CRP, CREAT #### [address] #### C4, C3 #### [facility] , Eosinophils Auto (Bld) [#/Vo l]Ordered By: Rashard Aguilar on 09-12-2023 Eosinophils (Bld) [#/Vol] 0.2 10*3/uL 0.0-0.45 [facility] Eosinophils/100 WBC Auto (Bl d)Ordered By: Rashard Aguilar on 09-12-2023 Eosinophils/100 WBC (Bld) 4.0 % . [facility] Erythrocyte Sedimentation Ra duyen 09-12-2023 ESR (Bld) [Velocity] 23 mm/h Normal 0-29 [facility] Comment on above: Result Comment: PERF ORMED BY: [place] [address] PATHOLOGIST [employer] KEYON SERNA M.D. Performed By: #### C BC, ADDONUAPLUS, ESR, CUU, CRP, CREAT #### [address] #### C4, C3 #### [facility] , Erythrocyte distribution wid th Auto (RBC) [Ratio]Ordered By: Rashard Aguilar on 09-12-2023 Erythrocyte distribution width (RBC) [Ratio] 14.3 % 11.9-15.3 [facility] Erythrocyte sedimentation ra te by Photometric methodOrdered By: Rashard Aguilar on 09-12-2023 ESR Photometric method (Bld) [Velocity] 23 mm/hr 0-29 [facility] Hematocrit Auto (Bld) [Volum e fraction]Ordered By: Rashard Aguilar on 09-12-2023 Hematocrit (Bld) [Volume fraction] 39.2 % 34.0-46.4 [facility] Hemoglobin [Mass/volume] in BloodOrdered By: Rashard Aguilar on 09-12-2023 Hemoglobin (Bld) [Mass/Vol] 12.9 g/dL 11.8-15.4 [facility] Ketones Test strip (U) [Mass /Vol]Ordered By: Rashard Aguilar on 09-12-2023 Ketones (U) [Mass/Vol] See comment Negative F [facility] Comment on above: Unable to obtain acc urate result due to color interference. Leukocytes [#/volume] correc edwige for nucleated erythrocytes in Blood by Automated counOrdered By: Rashard Aguilar on 09-12-2023 WBC corrected for nucl RBC Auto (Bld) [#/Vol] 5.7 10*3/uL 3.8-11.6 [facility] Lymphocytes Auto (Bld) [#/Vo l]Ordered By: Rashard Aguilar on 09-12-2023 Lymphocytes (Bld) [#/Vol] 1.8 10*3/uL 1.00-4.8 [facility] Lymphocytes/100 WBC Auto (Bl d)Ordered By: Rashard Aguilar on 09-12-2023 Lymphocytes/100 WBC (Bld) 31.9 % . [facility] MCH Auto (RBC) [Entitic mass ]Ordered By: Rashard Aguilar on 09-12-2023 MCH (RBC) [Entitic mass] 31.1 pg 24.7-34.3 [facility] MCHC Auto (RBC) [Mass/Vol]Or dered By: Rashard Aguilar on 09-12-2023 MCHC (RBC) [Mass/Vol] 33.0 g/dL 32.0-35.0 [facility] MCV Auto (RBC) [Entitic vol] Ordered By: Rashard Aguilar on 09-12-2023 MCV (RBC) [Entitic vol] 94.4 fL 80-100 [facility] Monocytes Auto (Bld) [#/Vol] Ordered By: Rashard Aguilar on 09-12-2023 Monocytes (Bld) [#/Vol] 0.5 10*3/uL 0.0-0.8 [facility] Monocytes/100 WBC Auto (Bld) Ordered By: Rashard Aguilar on 09-12-2023 Monocytes/100 WBC (Bld) 8.5 % . [facility] Neutrophils Auto (Bld) [#/Vo l]Ordered By: Rashard Aguilar on 09-12-2023 Neutrophils (Bld) [#/Vol] 3.1 10*3/uL 1.8-7.7 [facility] Neutrophils/100 WBC Auto (Bl d)Ordered By: Rashard Aguilar on 09-12-2023 Neutrophils/100 WBC (Bld) 54.8 % . [facility] No Panel InformationOrdered By: Rashard Aguilar on 09-12-2023 Estimated GFR (CKD-EPI) > 60.0 mL/Min [facility] Creatinine Clearance (Chem N/A [facility] Nucleated erythrocytes [Pres ence] in Blood by Automated countOrdered By: Rashard Aguilar on 09-12-2023 Nucleated RBC Auto Ql (Bld) 0.2 /100{WBC} 0-0.5 [facility] Platelet mean volume Auto (B ld) [Entitic vol]Ordered By: Rashard Aguilar on 09-12-2023 Platelet mean volume (Bld) [Entitic vol] 7.6 fL 6.3-10.7 [facility] Platelets Auto (Bld) [#/Vol] Ordered By: Rashard Aguilar on 09-12-2023 Platelets (Bld) [#/Vol] 263 10*3/uL 150-450 [facility] Protein Auto test strip (U) [Mass/Vol]Ordered By: Rashard Aguilar on 09-12-2023 Protein (U) [Mass/Vol] See comment Negative F [facility] Comment on above: Unable to obtain acc urate result due to color interference. RBC Auto (Bld) [#/Vol]Ordere d By: Rashard Aguilar on 09-12-2023 RBC (Bld) [#/Vol] 4.16 10*6/uL 3.60-5.00 [facility] Urine Cultureon 09-12-2023 Bacteria identified Cx Nom (U) <9,000 colonies/ml mixed bacterial skin contaminants 2 Days PERFORMED BY: [place] [address] PATHOLOGIST [employer] KEYON SERNA M.D. [facility] Comment on above: Performed By: #### C BC, ADDONUAPLUS, ESR, CUU, CRP, CREAT #### [facility] [address] [place] [address] [place] #### C4, C3 #### [facility] , Urine appearanceOrdered By: Rashard Aguilar on 09-12-2023 Appearance (U) Slightly cloudy Clear [facility] Urine bacteria detection by automated methodOrdered By: Rashard Aguilar on 09-12-2023 Bacteria Auto Ql (U) 2+ None Seen [facility] Urine colorOrdered By: Arthur Aguilar on 09-12-2023 Color (U) [place] Yellow [facility] Urine glucose measurement by automated test strip (mass/volume)Ordered By: Rashard Aguilar on 09-12-2023 Glucose Auto test strip (U) [Mass/Vol] See comment Normal [facility] Comment on above: Unable to obtain acc urate result due to color interference. Urine leukocyte esterase det ection by automated test stripOrdered By: Rashard Aguilar on 09-12-2023 Leukocyte esterase Auto test strip Ql (U) See comment Negative [facility] Comment on above: Unable to obtain acc urate result due to color interference. Urine nitrite detection by a utomated test stripOrdered By: Rashard Aguilar on 09-12-2023 Nitrite Auto test strip Ql (U) See comment Negative [facility] Comment on above: Unable to obtain acc urate result due to color interference. Urobilinogen Test strip (U) [Mass/Vol]Ordered By: Rashard Aguilar on 09-12-2023 Urobilinogen (U) [Mass/Vol] See comment Normal [facility] Comment on above: Unable to obtain acc urate result due to color interference. WBC Auto (Bld) [#/Vol]Ordere d By: Rashard Aguilar on 09-12-2023 WBC (Bld) [#/Vol] 5.7 10*3/uL 3.8-11.6 [facility] Yeast detection in urine sed iment by light microscopyOrdered By: Rashard Aguilar on 09-12-2023 Yeast LM Ql (Urine sed) Rare [HPF] None Seen [facility] pH Auto test strip (U)Ordere d By: Rashard Aguilar on 09-12-2023 pH (U) See comment 5.0-9.0 [facility] Comment on above: Unable to obtain [...] aorta Bladder stone BMI 29.0-29.9,adult CAD in [place] artery Disorder of vitamin D Essential hypertension [...] Father. Heart disease: Mother and Father. Normal [facility] Comment on above: Result Comment: Elec tronically Signed By: Gem Mills\.br\Date and Time Signed: 09/02/23 12:16 EST Heart and Vascular Office/Cl inic Noteon 08-27-2023 Heart and Vascular Office/Clinic Note Chief Complaint ED F/U History of Present Illness Tea Ramhan is a 78-year-old female who presents today for a follow-up evaluation of hypertension. She is accompanied by an adult male. The patient is struggling to find a primary care physician and is dealing with high anxiety, particularly after her last two visits with Dr. Post. She was called back due to her use of Xanax, which left Dr. Post unsure of how to handle the situation. She was told she was in shock and had been dealing with multiple issues in her life. Dr. Post asked her to leave him alone after diagnosing her with lupus, which she started treating with medication prescribed by her now-retired clerk of works. She only started the medication after her heart attack and never exceeds the recommended dose. She visited [facility] due to elevated blood pressure and was [...] has been treated by several doctors at [place]'s emergency room. Her nervous system has been [...] with voice recognition artificial intelligence software, specifically [employer], [employer] and or [employer]. Substitutions may have occurred with voice recognition and artificial intelligence software. ATTESTATION: Documentation services were performed after patient or guardian consented to allow [employer] to record this visit. DARVIN discharge specialist and provider reviewed before signing. DARVIN: Padmini Cook. Follow-up No qualifying data available Problem List/Past Medical History Ongoing Adjustment disorder with anxious mood Anemia Anxiety Atherosclerosis aorta Bladder stone BMI 29.0-29.9,adult CAD in [place] artery Disorder of vitamin D Essential hypertension [...] Sciatica Procedu (more content not included)... Normal [facility] Comment on above: Result Comment: Elec tronically Signed By: Portillo PIPER, Rahul Varner\.br\Date and Time Signed: 08/27/23 20:52 EST\.br\Electronically Co-Signed By: Padmini Cook\.br\Date and Time Co-Signed: 08/15/23 16:49 EST URINE CULTURE, ROUTINEon Bacteria identified Cx Nom (U) No growth at 48 hours Normal [facility] Comment on above: Performed By: #### L [id number] #### [facility] ([facility]) [address] [place] [address] Urinalysis - AUTOMATEDon Appearance (U) clear Qonf Other Bilirubin Ql (U) Negative enrich-in Other Color (U) orange [facility] Other Glucose Ql (U) 100 Qonf Other Hemoglobin Ql (U) small [employer] Other Ketones Ql (U) Negative Qonf Other Leukocyte esterase Test strip Ql (U) large [facility] Other Nitrite Ql (U) Positive Qonf Other pH (U) 5.0 [pH] [facility] Other Protein Ql (U) 100 Qonf Other Specific gravity (U) [Rel density] 1.010 [facility] Other Urobilinogen (U) [Mass/Vol] 1.0 mg/dL [facility] Other Urinalysis - AUTOMATED No rt [employer] Other Urine Cultureon 08-17-2023 Bacteria identified Cx Nom (U) <9,000 colonies/ml mixed bacterial skin contaminants 2 Days PERFORMED BY: [place] [address] PATHOLOGIST [employer]INTENANCE KEYON SERNA M.D. [facility] Comment on above: Performed By: #### C BC, ADDONUAPLUS, ESR, CUU, CRP, CREAT #### [facility] [address] [place] [address] [place] #### C4, C3 #### [facility] , Bacteria identified Cx Nom (U) [facility] Other Urine culture routineOrdered By: Shayy Garza on 08-17-2023 Bacteria identified Cx Nom (U) 2 Days [facility] Physician Orderon 08-16-2023 Physician Order [id number]#1.0 0TIFF [facility] Ambulatory Visit Summaryon 1 10-16-2022 Ambulatory Visit Summary TEA RAHMAN :1945 Visit Date:2023 Ambulatory Visit Instructions Your Care Team Admitting Physician - Camelia LOW CNP Attending Physician - Portillo PIPER, Rahul Varner Primary Care Physician - NONE, XXXX Referring Physician - NONE, XXXX This Is Your Medications List [facility] Prescription (PLACARD) [facility] Prescription (PLACARD) acetaminophen-hydrocod one (acetaminophen-hydroco done 325 [...] 11:00 AM EST With: Gem Mills Where: [facility] Monday 12:15 PM EDT With: Portillo PIPER, [...] aorta Bladder stone BMI 29.0-29.9,adult CAD in [place] artery Disorder of vitamin D Essential hypertension [...] for choosing us for your care. Normal [facility] Urinalysis - AUTOMATEDon Appearance (U) clear Qonf Other Bilirubin Ql (U) Negative enrich-in Other Color (U) bright orange [facility] Other Glucose Ql (U) Negative Qonf Other Hemoglobin Ql (U) Negative [employer] Other Ketones Ql (U) Negative Qonf Other Leukocyte esterase Test strip Ql (U) small [facility] Other Nitrite Ql (U) Positive Qonf Other pH (U) 6.0 [pH] [facility] Other Protein Ql (U) Negative Qonf Other Specific gravity (U) [Rel density] >1.010 [facility] Other Urobilinogen (U) [Mass/Vol] 0.2 mg/dL [facility] Other Urinalysis - AUTOMATED No rt [employer] Other Urine Cultureon 08-01-2023 Bacteria identified Cx Nom (U) Reason for Exam Dysuria Urine Reason for Exam: Dysuria : Urine No Growth 2 Days PERFORMED BY: [place] [address] PATHOLOGIST [employer] MAINTENANCE KEYON SERNA M.D. [facility] Comment on above: Performed By: #### C BC, ADDONUAPLUS, ESR, CUU, CRP, CREAT #### [facility] [address] [place] [address] #### C4, C3 #### [facility] , Bacteria identified Cx Nom (U) [facility] Other Urine culture routineOrdered By: Mary Toure on 08-01-2023 Bacteria identified Cx Nom (U) No Growth 2 Days [facility] Outside Recordson 07-27-2023 Outside Records [id number]#1.0 0TIFF Normal [facility] Consultation Noteon 07-25-20 Consultation Note [id number]#1.0 0TIFF Normal [facility] ED Note-Physicianon 07-19-20 ED Note-Physician [id number]#1.0 0TIFF Normal [facility] RAD - MISCon 07-19-2023 [facility] [id number]#1.0 0TIFF Normal [facility] Heart and Vascular Office/Cl inic Noteon [...] with voice recognition artificial intelligence software, specifically [employer], Cab[employer] and or [employer] ([employer]). Substitutions may have occurred due to the inherent limitations of voice recognition and artificial intelligence software. ATTESTATION: Documentation services were performed after the patient or guardian consented to allow [employer] to record this visit. DARVIN discharge specialist and provider reviewed before signing. DARVIN: Veronica Anderson Mariselrine Follow-up No qualifying data available Problem List/Past Medical History Ongoing Anemia Anxiety Atherosclerosis aorta Bladder stone BMI 29.0-29.9,adult CAD in [place] artery Disorder of vitamin D Essential hypertension [...] mg T (more content not included)... Normal [facility] Comment on above: Result Comment: Elec [...] her insurance companies. Her urologist is at [facility] in [place], [place], and they were having problems with [...] with voice recognition artificial intelligence software, specifically [employer], [employer] and or [employer] ([employer]). Substitutions may have occurred with voice recognition and artificial intelligence software. ATTESTATION: Documentation services were performed after patient or guardian consented to allow Reina Anthony to record this visit. DARVIN discharge specialist and provider reviewed before signing. DARVIN: Ruben Bernal. Follow-up No qualifying data available Problem List/Past Medical History Ongoing Anemia Anxiety Atherosclerosis aorta Bladder stone BMI 29.0-29.9,adult CAD in [place] artery Depression Disorder of vitamin D Essential [...] oral table (more content not included)... Normal [facility] Comment on above: Result Comment: Elec tronically Signed By: Portillo PIPER, Rahul Varner\.br\Date and Time Signed: 07/15/23 12:13 EST\.br\Electronically Co-Signed By: Ruben Bernal\.br\Date and Time Co-Signed: 05/26/23 12:49 EDT Consultation Noteon 07-06-20 Consultation Note [id number]#1.00 TIFF [facility] Consultation Noteon 07-03-20 Consultation Note [id number]#1.0 0TIFF [facility] Family Medicine Office/Clini c Noteon 06-27-2023 Family Medicine Office/Clinic Note HPI Staff Metcalf is a 77 year old female presenting [...] it. She voiced her dissatisfaction with her clerk of works, having seen many but not finding one who would truly listen to her. She mentioned that one of them would just take blood samples every visit, making it difficult for her to communicate with him. She informed this clerk of works about a blood test for her bladder that revealed 100 stones, but he dismissed it. However, he later acknowledged that it did indeed occur. She expressed her desire to seek a different clerk of works due to these experiences. She states that [...] Despite feeling misunderstood, she acknowledges the other republican's perspective. She clarifies that she splits her [...] current use of opiate analgesic drug (Z79.891: senior living (c (more content not included)... [facility] Comment on above: Result Comment: Elec tronically Signed By: Lidya Post MD\.br\Date and Time Signed: 06/27/23 08:27 EST\.br\Electronically Co-Signed By: Lucia Ramos\.br\Date and Time Co-Signed: 06/22/23 20:26 EDT Behavioral Health Sensitive Noteon 06-26-2023 Behavioral Health Sensitive Note Spoke with patient and she has decided to switch primary care physicians. Clinician has continued to offer services as needed. belt worker will continue to monitor the situation. 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 She is accompanied by her today. She was referred by Dr. Post to the clinic. The patient has been having intermittent sensations of chest pressure that began a few months ago. There is also a decline in her blood pressure. She consulted her regular lug breaker and wire puller when her symptoms began. During the visit, she recalled an incident from 2 months ago when she felt chest pressure for a duration of 10 minutes. The lug breaker and wire puller reassured her that her condition, including her blood pressure concern, was normal. Despite her open-heart surgery that took place on May 10, 2020, the lug breaker and wire puller conveyed that the period since the procedure [...] up in 4 to 6 weeks in [place]. 1. Chest pain (R07.9: Chest pain, unspecified) Could represent angina we will order stress. We will also order echocardiogram 2. CAD in [place] artery (I25.10: Atherosclerotic heart disease of [place] coronary artery without angina pectoris) CAD: DAPT, beta-doretha, statin, risk factor modification. 3. HTN (hypertension) (I10: Essential (primary) hypertension) HTN: BP control with antihypertensives targeting blood pressure less than 130/80. If control is not currently achieved we will be adding additional antihypertensive or increasing dose. Stopping amlodipine Portions of this record may have been created with voice recognition artificial intelligence software, specifically [employer] (more content not included)... Normal [facility] Comment on above: Result Comment: Elec [...] on 05/25 to cover her as Dr Post was out for a will need to [...] someone. She requires a refill of her Saline prescription. She was advised not to take benzodiazepines, which include Xanax and the Saline, simultaneously. She primarily uses Saline to alleviate joint pain and arthritis symptoms. She mentions being diagnosed with lupus at the age of 35 [address] Torres in [place]. She also indicates that she is currently [...] will go ahead and send her to [facility] to help with medications. 2. Primary fibromyalgia syndrome (M79.7: Fibromyalgia) We will refill the patient's Saline for 1 month and we will see her back in a month. Discussed the pros and cons of using benzo and a narcotic at the same time. Patient understands the concerns. Patient has been a long-term user of the opioids and at this time is stable. 3. Long-term current use of opiate analgesic drug (Z79.891: senior living (current) use of opiate analgesic) As per # 2. 4. Irritable bowel syndrome (K58.9: Irritable bowel syndrome without diarrhea) (more content not included)... Normal [facility] Comment on above: Result Comment: Elec tronically Signed By: Yohan PIPER, Lidya Lla\.br\Date and Time Signed: 06/06/23 07:46 EDT\.br\Electronically Co-Signed By: Lucia Ramos\.br\Date and Time Co-Signed: 05/30/23 17:17 EDT Physician Orderon 06-02-2023 Physician Order [id number]#1.0 0TIFF Normal [facility] Medication Consenton 023 Medication Consent [id number]#1.0 0TIFF [facility] Hospital Physician Referralon 023 Physician Referral [id number]. 00TIFF [facility] Ambulatory Visit Summaryon Ambulatory Visit Summary TEA RAHMAN :1945 Visit Date:05/30/2023 Ambulatory Visit Instructions Your Diagnosis Anxiety Primary fibromyalgia syndrome Long-term current use of opiate analgesic drug Irritable bowel syndrome Atherosclerosis aorta BMI 27.0-27.9,adult Overweight child Essential hypertension Major depressive disorder with single episode, in full remission Lupus Your Care Team Attending Physician - Lidya Post MD Primary Care Physician - Lidya Post MD This Is Your Medications List Misc [...] Portillo PIPER, Rahul Varner Where: [facility] [place] Monday 1:00 PM EDT With: [place] Where: [facility] [place] Monday 2:40 PM EST With: Lidya Post MD Where: [facility] Invalid Interpretation Code [address] [place] [address]- \.br \ Someone Will Contact You Regarding These Appointments \.br\ [facility] External Ambulatory Referral, Psychiatry, Community health services in [place]., 05/30/23 14:54:00 EDT, Anxiety [facility] Pre-Visit Planningon 023 Pre-Visit Planning - From: Yuliya ORTEZ, Kim To: Lidya Post MD; Sent: 05/29/2023 13:24:19 EDT Subject: Pre-Visit Planning Due Date/Time: 05/29/2023 13:24:00 EDT Caller Name: AV TEA S; Caller Number: , M Or Dr. Post, *Based on your response below, can you please update the chronic problem list and address during this visit if appropriate?* During a pre-visit planning chart review, I noted the following documentation in the medical record: Current medications: Hydroxychloroquine 12/21/2022 office note-When the patient was diagnosed with lupus, she was referred to a clerk of works in [place]. She tried a different clerk of works in [place] where she stayed until that provider retired. [...] very fatigued. 03/20/2023 office note- has a clerk of works not working out for her wants to find a new one needs her proctofoam refilled for the hemorrhoids and also dr santana gave her hyoscamine for blow outs but refills ran out as she doesn't use all the time, can she get more recent phq9-15 recent leanne-15 urine collected and processed 03/21/2023 [facility] page 1 has major depressive disorder single episode mild and systemic lupus erythematosus 03/28/2023 office note-Patient is taking half a tablet of Saline twice daily and steroids for her fibromyalgia, lupus, and arthritis. She reports continued pain in her shoulders and upper back. She was unable to receive epidural in the sciatic nerve due to miscommunication regarding the appointment. She requests prescription of hydroxychloroquine to take as needed for flares. She is looking for a clerk of works. Based on your medical judgment, can you [...] feel free to contact me at extension [phone]. Thank you! Kim Dwyer, SUREKHAN, RN, CCM, CCDS, CCDS-O Invalid Interpretation Code 272 [facility] Pre-Visit Planning - From: Yuliya ORTEZ, Kim To: Yohan PIPER, Lidya Lal; Sent: 05/29/2023 13:16:19 EDT Subject: Pre-Visit Planning Due Date/Time: 05/29/2023 13:16:00 EDT Caller Name: TEA RAHMAN; Caller Number: H , M Or Dr. Post, *Based on your response below, can you [...] as the Xanax PRN. 03/21/2023 [facility] page 1 has major [...] feel free to contact me at extension [phone]. Thank you! Kim Dwyer, SUREKHAN, RN, CCM, CCDS, CCDS-O Invalid Interpretation Code [address] [facility] Physician Orderon 05-26-2023 Physician Order [id number]#1. 00TIFF Normal [facility] NM Myocardial Spect Rest/Str ess 1 [...] 10.9 Stress Dose (mCi Tc99M Cardiolite): 30.0 [facility] Stress EKG Tracingson 2022 Stress EKG Tracings [id number]#1. 00CD:127 [facility] Consent for Treatmenton 04-22 Consent for Treatment [id number]#1.0 0CD:127 [facility] Consent for Treatmenton 04-21 Consent for Treatment [id number]#1.0 0CD:127 [facility] Consultation Noteon 05-08-20 23 Consultation Note [id number]#1.0 0CD:127 [facility] Consultation Note [id number]#1.00 CD:127 [facility] Urine Cultureon 05-04-2023 Bacteria identified Cx Nom (U) Reason for Exam Dysuria Urine 50,000 colonies/ml mixed bacterial skin contaminants 2 Days PERFORMED BY: [place] [address] PATHOLOGIST GROUNDSKEEPING MAINTENANCE KEYON SERNA M.D. [facility] Comment on above: Performed By: #### C UU #### [address] Physician Orderon 04-21-2023 Physician Order [id number] 0CD:127 Normal [facility] Physician Referralon 023 Physician Referral [id number]#1. 00CD:127 Normal [facility] Family Medicine Office/Clini c Noteon 04-17-2023 [...] Norvasc. Patient will follow-up with cardiology. Ordered: [facility] [place] Internal Ambulatory Referral 2. Post-nasal drip (R09.82: Postnasal drip) ? We will have the patient try the Zyrtec again. Discussed how the Zyrtec I do not believe is actually messing with her stomach but more the mucus. Ordered: [facility] [place] Internal Ambulatory Referral 3. CAD in [place] artery (I25.10: Atherosclerotic heart disease of [place] coronary artery without angina pectoris) ? We will send to cardiology for further recommendations. Ordered: [facility] [place] Internal Ambulatory Referral 4. BMI 28.0-28.9,adult (Z68.28: Body mass index [BMI] 28.0-28.9, adult) BMI education given. Ordered: Body Mass Index (BMI) documented 3008F Current tobacco non-user 1036F Depression Screening Negative 3352F [facility] [place] Internal Ambulatory Referral Most recent diastolic blood pressure <80 mm Hg 3078F Patient screen for fall risk: no falls in last year or 1 fall with no injury in last year 1101F Systolic BP <130 mm Hg (Most Recent) 3074F 5. Overweight (E66.3: Overweight) As above. Ordered: Body Mass Index (BMI) documented 3008F Current tobacco non-user 1036F Depression Screening Negative 3352F [facility] [place] Internal Ambulatory Referral Most recent diastolic blood pressure <80 mm Hg 3078F Patient screen for fall risk: no falls in last year or 1 fall with no injury in last year 1101F Systolic BP <130 mm Hg (Most Recent) 3074F Follow-up No qualifying data available Problem List/Past Medical History Ongoing Anemia Anxiety Atherosclerosis aorta Bladder stone BMI 29.0-29.9,adult CAD in [place] artery Depression Disorder of vitamin D Essential [...] Allergies Compazine (more content not included)... Normal [facility] Comment on above: Result Comment: Elec tronically Signed By: Yohan PIPER, Lidya Lal\.br\Date and Time Signed: 04/17/23 18:28 EDT Consultation Noteon 04-12-20 Consultation Note [id number]#1.0 0CD:127 [facility] Consultation Note [id number] 0CD:127 [facility] Family Medicine Office/Clini c Noteon 03-29-2023 [...] Medication agreement UTD: 12/20/22_ Urine drug screen performed:8/8/23 recent leanne: 18 uses alprazolam for anxiety [...] Patient is taking half a tablet of Saline twice daily and steroids for her fibromyalgia, lupus, and arthritis. She reports continued pain in her shoulders and upper back. She was unable to receive epidural in the sciatic nerve due to miscommunication regarding the appointment. She requests prescription of hydroxychloroquine to take as needed for flares. She is looking for a clerk of works. The adult male reports the patient presented [...] well controlled with a half of a Saline a day. 3. Long-term current use of opiate analgesic drug (Z79.891: senior living (current) use of opiate analgesic) As above. 4. BMI 28.0-28.9,adult (Z68.28: Body mass index [BMI] 28.0-28.9, adult) BMI education given. 5. OA - Osteoarthritis of knee (M17.10: Unilateral primary osteoarthritis, unspecified knee) Again, patient uses the steroids to help and patient is doing well with the use of half a Saline twice a day. 6. Overweight (E66.3: Overweight) [...] with voice recognition artificial intelligence software, specifically [employer], [employer] and or [employer]). Substitutions may have occurred due to the inher (more content not included)... Normal [facility] Comment on above: Result Comment: Elec tronically Signed By: Lidya Post MD\.br\Date and Time Signed: 03/29/23 09:38 EDT\.br\Electronically Co-Signed By: Lucia Ramos\.br\Date and Time Co-Signed: 03/28/23 19:25 EDT RAD - MISCon 03-29-2023 RAD - MIS [id number] 0CD:127 Normal [facility] Ambulatory Visit Summaryon 0 03-28-2023 Ambulatory Visit Summary TEA RAHMAN :1945 Visit Date:03/28/2023 Ambulatory Visit Instructions Your Diagnosis Anxiety Primary fibromyalgia syndrome Long-term current use of opiate analgesic drug BMI 28.0-28.9,adult OA - Osteoarthritis of knee Overweight Generalized abdominal pain Your Care Team Attending Physician - Lidya Post MD Primary Care Physician - Lidya Post MD This Is Your Medications List alprazolam [...] Follow-Up Appointments Monday 1:20 PM EDT With: Lidya Post MD Where: [facility] Ambulatory Visit Summary TEA RAHMAN :1945 Visit Date:03/28/2023 Ambulatory Visit Instructions Your Diagnosis Anxiety Primary fibromyalgia syndrome Long-term current use of opiate analgesic drug BMI 28.0-28.9,adult OA - Osteoarthritis of knee Overweight Generalized abdominal pain Your Care Team Attending Physician - Lidya Post MD Primary Care Physician - Lidya Post MD This Is Your Medications List acetaminophen-hydrocod [...] Follow-Up Appointments Monday 1:20 PM EDT With: Lidya Post MD Where: [facility] [id number]#1.0 0CD:127 [facility] Ambulatory Visit Summaryon 0 03-20-2023 Ambulatory Visit Summary TEA RAHMAN :1945 Visit Date:03/20/2023 Ambulatory Visit Instructions Your Diagnosis Abdominal pain Primary fibromyalgia syndrome BMI 29.0-29.9,adult Over weight Tests Performed Urnls Dip Stick Non-Auto w/o Micrscpy POC 71608 Your Care Team Attending Physician - Lidya Post MD Primary Care Physician - Lidya Post MD This Is Your Medications List acetaminophen-hydrocod [...] Follow-Up Appointments Monday 1:00 PM EDT With: Lidya Post MD Where: [facility] Family Medicine Office/Clini c Noteon 03-20-2023 Family [...] wasn't formed does have hemorrhoids has a clerk of works not working out for her wants to [...] ProctoFoam for Hemorrhoids - Would like another clerk of works. Review of Systems PHQ Score Initial Depression [...] Urnls Dip Stick Non-Auto w/o Micrscpy POC 36844 2. Primary fibromyalgia syndrome (M79.7: Fibromyalgia) - Will do a small steroid burst. - Then when patient finds a better Inspector And Clerk we will refer Ordered: methylPREDNISolone, = 1 packet(s), Oral, As Directed, as directed on package labeling, X 6 day(s), # 21 tab(s), Refills(s) 0, Pharmacy: [id number], 167, cm, 03/20/23 11:45:00 EDT, Height/Length Dosing, 80.9, kg, 03/20/23 11:45:00 EDT, Weight Dosing 3. Hemorrhoids (K64.9: Unspecified hemorrhoids) - Proctofoam 4. BMI 29.0-29.9,adult (Z68.29: Body mass index [BMI] 29.0-29.9, adult) - BMI education given Ordered: methylPREDNISolone, = 1 packet(s), Oral, As Directed, as directed on package labeling, X 6 day(s), # 21 tab(s), Refills(s) 0, Pharmacy: [facility] #[id number], 167, cm, 03/20/23 11:45:00 EDT, Height/Length Dosing, [...] day(s), # 21 tab(s), Refills(s) 0, Pharmacy: [facility] #[id number], 167, cm, 03/20/23 11:45:00 EDT, Height/Length Dosing, [...] elías, Rectal, TID, 10 gram, Refill(s) 0, [facility] #[id number], 167, cm, 03/20/23 11:45:00 EDT, Height/Length Dosing, [...] acetaminophen-hydrocod one (more content not included)... Normal [facility] Comment on above: Result Comment: Elec tronically Signed By: Yohan PIPER, Lidya Gómez.br\Date and Time Signed: 03/20/23 12:22 EDT Consultation Noteon 03-09-20 Consultation Note [id number] 0CD:127 Normal [facility] XR chest 2V*on 03-02-2023 XR chest 2V* [facility] Main [place] [address] [place] [address] XRay Report Signed Patient: Tea Rahman MR#: [id number] : 1945 Acct:[id number] Age/Sex: 77 / F ADM Date: 03/02/23 Loc: [facility] Room: Type: [facility] Attending Dr: Rashard Aguilar MD Copies [...] Zen Yo M.D.03/02/2023 4:11 PM Dictation Location: [facility] Transcribed By: [facility] 03/02/231610 Dictated By: Zen Yo DO 03/02/231609 Signed By: 03/02/23 161 Normal [facility] Consultation Noteon 02-07-20 Consultation Note [id number]#1.0 0CD:127 Normal [facility] Amorphous urine sedimentOrde red By: Rashard Aguilar on 01-24-2023 Amorphous sediment LM Ql (Urine sed) See comment Negative [facility] Comment on above: Unable to obtain acc urate result due to color interference. Automated epithelial cells c ount in urine sediment (number/area)Ordered By: Rashard Aguilar on 01-24-2023 Epithelial cells Auto (Urine sed) [#/Area] 5-9 [HPF] 0-2 [facility] Automated erythrocytes count in urine sediment (number/area)Ordered By: Rashard Aguilar on 01-24-2023 RBC Auto (Urine sed) [#/Area] None seen [HPF] 0-4 [facility] Automated leukocytes count i n urine sediment (number/area)Ordered By: Rashard Aguilar on 01-24-2023 WBC Auto (Urine sed) [#/Area] 5-9 [HPF] 0-4 [facility] Automated urine specific gra vity by refractometryOrdered By: Rashard Aguilar on 01-24-2023 Specific gravity Refractometry automated (U) [Rel density] 1.015 1.001-1.030 [facility] Basophils Auto (Bld) [#/Vol] Ordered By: Rashard Aguilar on 01-24-2023 Basophils (Bld) [#/Vol] 0.0 10*3/uL 0.0-0.2 [facility] Basophils/100 WBC Auto (Bld) Ordered By: Rashard Aguilar on 01-24-2023 Basophils/100 WBC (Bld) 0.5 % . [facility] Bilirubin Auto test strip Ql (U)Ordered By: Rasahrd Aguilar on 01-24-2023 Bilirubin Ql (U) See comment Negative [facility] Comment on above: Unable to obtain acc urate result due to color interference. C reactive protein [Mass/vol ume] in Serum or PlasmaOrdered By: Rashard Aguilar on 01-24-2023 CRP [Mass/Vol] 0.6 mg/dL 0.0-0.5 [facility] C-Reactive Proteinon 023 C-Reactive Protein 0.6 mg/dL High 0.0-0.5 [facility] Comment on above: Result Comment: PERF ORMED BY: [place] [address] PATHOLOGIST GROUNDSKEEPING MAINTENANCE KEYON SERNA M.D. Performed By: #### C BC, ADDONUAPLUS, ESR, CUU, CRP, CREAT #### [address] #### C4, C3 #### [facility] , Complement C3on 01-24-2023 Complement C3 162 mg/dL Normal 82-167 [facility] Comment on above: Result Comment: Perf ormed at: - [facility] [address] [id number] Insulator Tester: Paul Dumont PhD, Phone: [phone] Performed By: #### C BC, ADDONUAPLUS, ESR, CUU, CRP, CREAT #### [address] #### C4, C3 #### [facility] , Complement C4on 01-24-2023 Complement C4 36 mg/dL Normal 12-38 [facility] Comment on above: Result Comment: PERF ORMED BY: [place] [address] PATHOLOGIST GROUNDSKEEPING MAINTENANCE KEYON SERNA M.D. Performed By: #### C BC, ADDONUAPLUS, ESR, CUU, CRP, CREAT #### [place] [address] [place] #### C4, C3 #### [facility] , Complete Blood Count Auto Di ffon 01-24-2023 Basophils (Bld) [#/Vol] 0.0 10*3/uL Normal 0.0-0.2 [facility] Comment on above: Performed By: #### C BC, ADDONUAPLUS, ESR, CUU, CRP, CREAT #### [address] #### C4, C3 #### [facility] , Basophils/100 WBC (Bld) 0.5 % Normal . [facility] Comment on above: Performed By: #### C BC, ADDONUAPLUS, ESR, CUU, CRP, CREAT #### [place] [address] [place] #### C4, C3 #### [facility] , Eosinophils (Bld) [#/Vol] 0.2 10*3/uL Normal 0.0-0.45 [facility] Comment on above: Performed By: #### C BC, ADDONUAPLUS, ESR, CUU, CRP, CREAT #### [place] [address] [place] #### C4, C3 #### [facility] , Eosinophils/100 WBC (Bld) 3.3 % Normal . [facility] Comment on above: Performed By: #### C BC, ADDONUAPLUS, ESR, CUU, CRP, CREAT #### [place] [address] [place] #### C4, C3 #### [facility] , Erythrocyte distribution width (RBC) [Ratio] 14.2 % Normal 11.9-15.3 [facility] Comment on above: Performed By: #### C BC, ADDONUAPLUS, ESR, CUU, CRP, CREAT #### [place] [address] [place] #### C4, C3 #### [facility] , Hematocrit (Bld) [Volume fraction] 40.7 % Normal 34.0-46.4 [facility] Comment on above: Performed By: #### C BC, ADDONUAPLUS, ESR, CUU, CRP, CREAT #### [place] [address] [place] #### C4, C3 #### [facility] , Hemoglobin (Bld) [Mass/Vol] 13.2 g/dL Normal 11.8-15.4 [facility] Comment on above: Performed By: #### C BC, ADDONUAPLUS, ESR, CUU, CRP, CREAT #### [address] #### C4, C3 #### [facility] , Lymphocytes (Bld) [#/Vol] 1.9 10*3/uL Normal 1.00-4.8 [facility] Comment on above: Performed By: #### C BC, ADDONUAPLUS, ESR, CUU, CRP, CREAT #### [address] #### C4, C3 #### [facility] , Lymphocytes/100 WBC (Bld) 30.8 % Normal . [facility] Comment on above: Performed By: #### C BC, ADDONUAPLUS, ESR, CUU, CRP, CREAT #### [place] [address] [place] #### C4, C3 #### [facility] , MCH (RBC) [Entitic mass] 29.5 pg Normal 24.7-34.3 [facility] Comment on above: Performed By: #### C BC, ADDONUAPLUS, ESR, CUU, CRP, CREAT #### [place] [address] [place] #### C4, C3 #### [facility] , MCV (RBC) [Entitic vol] 90.9 fL Normal 80-100 [facility] Comment on above: Performed By: #### C BC, ADDONUAPLUS, ESR, CUU, CRP, CREAT #### [place] [address] [place] #### C4, C3 #### [facility] , Mean Corpuscular HGB Conc 32.5 g/dL Normal 32.0-35.0 [facility] Comment on above: Performed By: #### C BC, ADDONUAPLUS, ESR, CUU, CRP, CREAT #### [place] [address] [place] #### C4, C3 #### [facility] , Monocytes (Bld) [#/Vol] 0.4 10*3/uL Normal 0.0-0.8 [facility] Comment on above: Performed By: #### C BC, ADDONUAPLUS, ESR, CUU, CRP, CREAT #### [place] [address] [place] #### C4, C3 #### [facility] , Monocytes/100 WBC (Bld) 7.1 % Normal . [facility] Comment on above: Performed By: #### C BC, ADDONUAPLUS, ESR, CUU, CRP, CREAT #### [address] #### C4, C3 #### [facility] , Neutrophils (Bld) [#/Vol] 3.7 10*3/uL Normal 1.8-7.7 [facility] Comment on above: Performed By: #### C BC, ADDONUAPLUS, ESR, CUU, CRP, CREAT #### [place] [address] [place] #### C4, C3 #### [facility] , Neutrophils/100 WBC (Bld) 58.3 % Normal . [facility] Comment on above: Performed By: #### C BC, ADDONUAPLUS, ESR, CUU, CRP, CREAT #### [facility] [address] [place] [address] [place] #### C4, C3 #### [facility] , NRBC% 0.1 /100{WBC} Normal 0-0.5 [facility] Comment on above: Performed By: #### C BC, ADDONUAPLUS, ESR, CUU, CRP, CREAT #### [facility] [address] [place] [address] [place] #### C4, C3 #### [facility] , Platelet mean volume (Bld) [Entitic vol] 7.3 fL Normal 6.3-10.7 [facility] Comment on above: Performed By: #### C BC, ADDONUAPLUS, ESR, CUU, CRP, CREAT #### [address] #### C4, C3 #### [facility] , Platelets (Bld) [#/Vol] 239 10*3/uL Normal 150-450 [facility] Comment on above: Performed By: #### C BC, ADDONUAPLUS, ESR, CUU, CRP, CREAT #### [place] [address] [place] #### C4, C3 #### [facility] , RBC (Bld) [#/Vol] 4.48 10*6/uL Normal 3.60-5.00 [facility] Comment on above: Performed By: #### C BC, ADDONUAPLUS, ESR, CUU, CRP, CREAT #### [place] [address] [place] #### C4, C3 #### [facility] , WBC (Bld) [#/Vol] 6.3 10*3/uL Normal 3.8-11.6 [facility] Comment on above: Performed By: #### C BC, ADDONUAPLUS, ESR, CUU, CRP, CREAT #### [address] [place] [address] [place] #### C4, C3 #### [facility] , Creatinineon 01-24-2023 Creatinine [Mass/Vol] 0.96 mg/dL Normal 0.60-1.20 [facility] Comment on above: Performed By: #### C BC, ADDONUAPLUS, ESR, CUU, CRP, CREAT #### [facility] [address] [place] [address] [place] #### C4, C3 #### [facility] , GFR/1.73 sq M.predicted MDRD (S/P/Bld) [Vol rate/Area] mL/min/{1.73_m2} Normal [facility] Comment on above: Performed By: #### C BC, ADDONUAPLUS, ESR, CUU, CRP, CREAT #### [place] [address] [place] #### C4, C3 #### [facility] , Creatinine [Mass/volume] in Serum or PlasmaOrdered By: Rashard Aguilar on 01-24-2023 Creatinine [Mass/Vol] 0.96 mg/dL 0.60-1.20 [facility] Dipstick and Microscopicon 0 01-24-2023 Appearance (U) Slightly Cloudy Critically abnormal Clear [facility] Comment on above: Order Comment: Name Collection Type:: Clean-Voided Midstream Performed By: #### C BC, ADDONUAPLUS, ESR, CUU, CRP, CREAT #### [place] [address] [place] #### C4, C3 #### [facility] , Bacteria,Urine 1+ High None Seen [facility] Comment on above: Order Comment: Name Collection Type:: Clean-Voided Midstream Performed By: #### C BC, ADDONUAPLUS, ESR, CUU, CRP, CREAT #### [place] [address] [place] #### C4, C3 #### [facility] , Bilirubin,Urine Normal Negative [facility] Comment on above: Order Comment: Name Collection Type:: Clean-Voided Midstream Result Comment: Unab le to obtain accurate result due to color interference. Performed By: #### C BC, ADDONUAPLUS, ESR, CUU, CRP, CREAT #### [address] #### C4, C3 #### [facility] , Color (U) [place] Critically abnormal Yellow [facility] Comment on above: Order Comment: Name Collection Type:: Clean-Voided Midstream Performed By: #### C BC, ADDONUAPLUS, ESR, CUU, CRP, CREAT #### [address] #### C4, C3 #### [facility] , Glucose Ql (U) Normal Normal [facility] Comment on above: Order Comment: Name Collection Type:: Clean-Voided Midstream Result Comment: Unab le to obtain accurate result due to color interference. Performed By: #### C BC, ADDONUAPLUS, ESR, CUU, CRP, CREAT #### [address] #### C4, C3 #### [facility] , Ketones Ql (U) Normal Negative [facility] Comment on above: Order Comment: Name Collection Type:: Clean-Voided Midstream Result Comment: Unab le to obtain accurate result due to color interference. Performed By: #### C BC, ADDONUAPLUS, ESR, CUU, CRP, CREAT #### [place] [address] [place] #### C4, C3 #### [facility] , Leukocyte esterase Test strip Ql (U) Normal Negative [facility] Comment on above: Order Comment: Name Collection Type:: Clean-Voided Midstream Result Comment: Unab le to obtain accurate result due to color interference. Performed By: #### C BC, ADDONUAPLUS, ESR, CUU, CRP, CREAT #### [address] #### C4, C3 #### [facility] , Nitrite,Urine Normal Negative [facility] Comment on above: Order Comment: Name Collection Type:: Clean-Voided Midstream Result Comment: Unab le to obtain accurate result due to color interference. Performed By: #### C BC, ADDONUAPLUS, ESR, CUU, CRP, CREAT #### [address] #### C4, C3 #### [facility] , Occult Blood,Urine Normal Negative [facility] Comment on above: Order Comment: Name Collection Type:: Clean-Voided Midstream Result Comment: Unab le to obtain accurate result due to color interference. Performed By: #### C BC, ADDONUAPLUS, ESR, CUU, CRP, CREAT #### [address] #### C4, C3 #### [facility] , pH,Urine Normal 5.0-9.0 [facility] [facility] Comment on above: Order Comment: Name Collection Type:: Clean-Voided Midstream Result Comment: Unab le to obtain accurate result due to color interference. Performed By: #### C BC, ADDONUAPLUS, ESR, CUU, CRP, CREAT #### [address] #### C4, C3 #### [facility] , Protein,Urine Normal Negative [facility] Comment on above: Order Comment: Name Collection Type:: Clean-Voided Midstream Result Comment: Unab le to obtain accurate result due to color interference. Performed By: #### C BC, ADDONUAPLUS, ESR, CUU, CRP, CREAT #### [address] #### C4, C3 #### [facility] , RBC,Urine None Seen Normal 0-4 [facility] Comment on above: Order Comment: Name Collection Type:: Clean-Voided Midstream Performed By: #### C BC, ADDONUAPLUS, ESR, CUU, CRP, CREAT #### [address] #### C4, C3 #### [facility] , Specificy [place],Urine 1.015 Normal 1.001-1.030 [facility] Comment on above: Order Comment: Name Collection Type:: Clean-Voided Midstream Performed By: #### C BC, ADDONUAPLUS, ESR, CUU, CRP, CREAT #### [address] #### C4, C3 #### [facility] , Squamous Epithelial Cell,Urine 5-9 High 0-2 [facility] Comment on above: Order Comment: Name Collection Type:: Clean-Voided Midstream Performed By: #### C BC, ADDONUAPLUS, ESR, CUU, CRP, CREAT #### [address] #### C4, C3 #### [facility] , Urobilinogen,Urine Normal Normal [facility] Comment on above: Order Comment: Name Collection Type:: Clean-Voided Midstream Result Comment: Unab le to obtain accurate result due to color interference. Performed By: #### C BC, ADDONUAPLUS, ESR, CUU, CRP, CREAT #### [address] #### C4, C3 #### [facility] , WBC,Urine 5-9 High 0-4 [facility] Comment on above: Order Comment: Name Collection Type:: Clean-Voided Midstream Performed By: #### C BC, ADDONUAPLUS, ESR, CUU, CRP, CREAT #### [place] [address] [place] #### C4, C3 #### [facility] , Yeast,Urine 3+ Critically abnormal None Seen [facility] Comment on above: Order Comment: Name Collection Type:: Clean-Voided Midstream Result Comment: PERF ORMED BY: [place] [address] PATHOLOGIST [employer]OUN[employer] MAINTENANCE KEYON SERNA M.D. Performed By: #### C BC, ADDONUAPLUS, ESR, CUU, CRP, CREAT #### [facility] [address] [place] [address] #### C4, C3 #### [facility] , Eosinophils Auto (Bld) [#/Vo l]Ordered By: Rashard Aguilar on 01-24-2023 Eosinophils (Bld) [#/Vol] 0.2 10*3/uL 0.0-0.45 [facility] Eosinophils/100 WBC Auto (Bl d)Ordered By: Rashard Aguilar on 01-24-2023 Eosinophils/100 WBC (Bld) 3.3 % . [facility] Erythrocyte Sedimentation Ra duyen 01-24-2023 ESR (Bld) [Velocity] 38 mm/h High 0- [facility] Comment on above: Result Comment: PERF ORMED BY: [place] [address] PATHOLOGIST [employer]OUNDSKEEP[employer] MAINTENANCE KEYON SERNA M.D. Performed By: #### C BC, ADDONUAPLUS, ESR, CUU, CRP, CREAT #### [facility] [address] [place] [address] #### C4, C3 #### [facility] , Erythrocyte distribution wid th Auto (RBC) [Ratio]Ordered By: Rashard Aguilar on 01-24-2023 Erythrocyte distribution width (RBC) [Ratio] 14.2 % 11.9-15.3 [facility] Erythrocyte sedimentation ra te by Photometric methodOrdered By: Rashard Aguilar on 01-24-2023 ESR Photometric method (Bld) [Velocity] 38 mm/hr 0-29 [facility] Hematocrit Auto (Bld) [Volum e fraction]Ordered By: Rashard Aguilar on 01-24-2023 Hematocrit (Bld) [Volume fraction] 40.7 % 34.0-46.4 [facility] Hemoglobin [Mass/volume] in BloodOrdered By: Rashard Aguilar on 01-24-2023 Hemoglobin (Bld) [Mass/Vol] 13.2 g/dL 11.8-15.4 [facility] Ketones Test strip (U) [Mass /Vol]Ordered By: Rashard Aguilar on 01-24-2023 Ketones (U) [Mass/Vol] See comment Negative F [facility] Comment on above: Unable to obtain acc urate result due to color interference. Leukocytes [#/volume] correc edwige for nucleated erythrocytes in Blood by Automated counOrdered By: Rashard Aguilar on 01-24-2023 WBC corrected for nucl RBC Auto (Bld) [#/Vol] 6.3 10*3/uL 3.8-11.6 [facility] Lymphocytes Auto (Bld) [#/Vo l]Ordered By: Rashard Aguilar on 01-24-2023 Lymphocytes (Bld) [#/Vol] 1.9 10*3/uL 1.00-4.8 [facility] Lymphocytes/100 WBC Auto (Bl d)Ordered By: Rashard Aguilar on 01-24-2023 Lymphocytes/100 WBC (Bld) 30.8 % . [facility] MCH Auto (RBC) [Entitic mass ]Ordered By: Rashard Aguilar on 01-24-2023 MCH (RBC) [Entitic mass] 29.5 pg 24.7-34.3 [facility] MCHC Auto (RBC) [Mass/Vol]Or dered By: Rashard Aguilar on 01-24-2023 MCHC (RBC) [Mass/Vol] 32.5 g/dL 32.0-35.0 [facility] MCV Auto (RBC) [Entitic vol] Ordered By: Rashard Aguilar on 01-24-2023 MCV (RBC) [Entitic vol] 90.9 fL 80-100 [facility] Monocytes Auto (Bld) [#/Vol] Ordered By: Rashard Aguilar on 01-24-2023 Monocytes (Bld) [#/Vol] 0.4 10*3/uL 0.0-0.8 [facility] Monocytes/100 WBC Auto (Bld) Ordered By: Rashard Aguilar on 01-24-2023 Monocytes/100 WBC (Bld) 7.1 % . [facility] Neutrophils Auto (Bld) [#/Vo l]Ordered By: Rashard Aguilar on 01-24-2023 Neutrophils (Bld) [#/Vol] 3.7 10*3/uL 1.8-7.7 [facility] Neutrophils/100 WBC Auto (Bl d)Ordered By: Rashard Aguilar on 01-24-2023 Neutrophils/100 WBC (Bld) 58.3 % . [facility] No Panel InformationOrdered By: Rashard Aguilar on 01-24-2023 Estimated GFR (CKD-EPI) > 60.0 mL/Min [facility]acy Creatinine Clearance (Chem N/A [facility] Nucleated erythrocytes [Pres ence] in Blood by Automated countOrdered By: Rashard Aguilar on 01-24-2023 Nucleated RBC Auto Ql (Bld) 0.1 /100{WBC} 0-0.5 [facility] Platelet mean volume Auto (B ld) [Entitic vol]Ordered By: Rashard Aguilar on 01-24-2023 Platelet mean volume (Bld) [Entitic vol] 7.3 fL 6.3-10.7 [facility] Platelets Auto (Bld) [#/Vol] Ordered By: Rashard Aguilar on 01-24-2023 Platelets (Bld) [#/Vol] 239 10*3/uL 150-450 [facility] Protein Auto test strip (U) [Mass/Vol]Ordered By: Rashard Aguilar on 01-24-2023 Protein (U) [Mass/Vol] See comment Negative F [facility] Comment on above: Unable to obtain acc urate result due to color interference. RBC Auto (Bld) [#/Vol]Ordere d By: Rashard Aguilar on 01-24-2023 RBC (Bld) [#/Vol] 4.48 10*6/uL 3.60-5.00 [facility] Serum or plasma complement C 3 measurement (mass/volume)Ordered By: Rashard Aguilar on 01-24-2023 Complement C3 [Mass/Vol] 162 mg/dL 82-167 [facility] Comment on above: Performed at: [address] [id number] Director: Paul Dumont PhD, Phone: [phone] Serum or plasma complement C 4 measurement (mass/volume)Ordered By: Rashard Aguilar on 01-24-2023 Complement C4 [Mass/Vol] 36 mg/dL 12-38 [facility] Urine Cultureon 01-24-2023 Bacteria identified Cx Nom (U) ORGANISM: Ghazal glabrata (O:CANGLA) [place] Count 20,000 PERFORMED BY: [place] [address] PATHOLOGIST [employer] MAINTENANCE KEYON SERNA M.D. [facility] Comment on above: Performed By: #### C BC, ADDONUAPLUS, ESR, CUU, CRP, CREAT #### [facility] [address] [place] [address] #### C4, C3 #### [facility] , Urine appearanceOrdered By: Rashard Aguilar on 01-24-2023 Appearance (U) Slightly cloudy Clear [facility] Urine bacteria detection by automated methodOrdered By: Rashard Aguilar on 01-24-2023 Bacteria Auto Ql (U) 1+ None Seen [facility] Urine colorOrdered By: Arthur Aguilar on 01-24-2023 Color (U) [place] Yellow [facility] Urine culture routineOrdered By: Rashard Aguilar on 01-24-2023 Bacteria identified Cx Nom (U) Ghazal glabrata [facility] Urine glucose measurement by automated test strip (mass/volume)Ordered By: Rashard Aguilar on 01-24-2023 Glucose Auto test strip (U) [Mass/Vol] See comment Normal [facility] Comment on above: Unable to obtain acc urate result due to color interference. Urine leukocyte esterase det ection by automated test stripOrdered By: Rashard Aguilar on 01-24-2023 Leukocyte esterase Auto test strip Ql (U) See comment Negative [facility] Comment on above: Unable to obtain acc urate result due to color interference. Urine nitrite detection by a utomated test stripOrdered By: Rashard Aguilar on 01-24-2023 Nitrite Auto test strip Ql (U) See comment Negative [facility] Comment on above: Unable to obtain acc urate result due to color interference. Urobilinogen Test strip (U) [Mass/Vol]Ordered By: Rashard Aguilar on 01-24-2023 Urobilinogen (U) [Mass/Vol] See comment Normal [facility] Comment on above: Unable to obtain acc urate result due to color interference. WBC Auto (Bld) [#/Vol]Ordere d By: Rashard Aguilar on 01-24-2023 WBC (Bld) [#/Vol] 6.3 10*3/uL 3.8-11.6 [facility] Yeast detection in urine sed iment by light microscopyOrdered By: Rashard Aguilar on 01-24-2023 Yeast LM Ql (Urine sed) 3+ [HPF] None Seen [facility] pH Auto test strip (U)Ordere d By: Rashard Aguilar on 01-24-2023 pH (U) See comment 5.0-9.0 [facility] Comment on above: Unable to obtain [...] with bladders stones, [place] History of Present Illness Tea Rahman is [...] and is followed by a urologist in [place]. She had a scope completed 10/21/2022 and, per patient, they stopped counting stones. She had also been followed by a urologist in [place]. When he moved his practice to [place], [place], she followed him for care. Due [...] with lupus, she was referred to a clerk of works in [place]. She tried a different clerk of works in [place] where she stayed until that provider retired. [...] Mrs. Rahman takes Xanax for anxiety and Saline for joint pain as sparingly as possible. Over the past few years, she has been taking a half a Xanax and a half a Saline every morning as well as at night. [...] fibromyalgia syndrome (M79.7: Fibromyalgia) Patient is on Saline for this. Again, discussed laws and regulations with this medication. She will comply. Will follow as needed. 5. Essential hypertension (I10: Essential (primary) hypertension) Patient is at goal at this time. Continue to monitor. 6. Long-term current use of opiate analgesic drug (Z79.891: senior living (current) use of opiate analgesic) We will continue to monitor use of Saline. 7. Bladder stone (N21.0: Calculus in bladder) Will refer to urology for second opinion. Will see the patient back in 2 months and we will readjust the patient's medication as needed. Documentation services were performed after patient or guardian consented to allow Reina Anthony to record this visit. DARVIN discharge specialist and provider reviewed before signing. DARVIN: [...] and depressive (more content not included)... Normal [facility] Comment on above: Result Comment: Elec tronically Signed By: Lidya Post MD\.br\Date and Time Signed: 12/22/22 14:14 EDT\.br\Electronically Co-Signed By: India Aguilar.br\Date and Time Co-Signed: 12/21/22 17:26 EDT Physician Referralon 023 Physician Referral [id number]. [id number]:127 Normal [facility] Lab Reportson 12-21-2022 Lab Reports [id number] 0CD:127 Normal [facility] Medication Consenton 023 Medication Consent [id number] 0CD:127 Normal [facility] Ambulatory Visit Summaryon 0 12-20-2022 Ambulatory Visit Summary TEA RAHMAN :1945 Visit Date:12/20/2022 Ambulatory Visit Instructions Your Diagnosis Depression Atherosclerosis of aorta, Atherosclerosis aorta Mixed anxiety and depressive disorder Primary fibromyalgia syndrome Essential hypertension Long-term current use of opiate analgesic drug Bladder stone Your Care Team Attending Physician - Lidya Post MD Primary Care Physician - Lidya Post MD This Is Your Medications List acetaminophen-hydrocod [...] Monday 1:00 PM EDT With: Yohan PIPER, Lidya Lal Where: [facility] Lab Reportson 12-14-2022 Lab Reports [id number] CD:127 Normal [facility] Stone Analysison 10-25-2022 Calculi description See Note [facility] Comment on above: Result Comment: (NOT E) Specimen consists of numerous brown calculi. The total weight is 684 mg. Performed By: #### A STONE #### [address] [address] Insulator Tester: Jamel Valentine MD Composition See Note [facility] Comment on above: Result Comment: (NOT [...] composition determined by FTIR analysis. Performed By: [employer] [address] [place] [id number] [place] Hand: Reggie Lawrence MD, PhD Performed By: #### A STONE #### [facility] [address] [place], [place] [id number] Insulator Tester: Jamel Valentine MD Mass 684 mg [facility] Comment on above: Performed By: #### A STONE #### [facility] [employer] [address] [place] [address] Insulator Tester: Jamel Valentine MD CULTURE URINEon 09-20-2022 CULTURE URINE Culture Observations : NO GROWTH. Normal [facility] Comment on above: Performed By: #### U RCX #### [facility] [address] [address] [address] Gigi Guzman FREE T3on 09-20-2022 FREE T3 1.79 pg/mlL Critically low 2.18-3.98 [facility] Comment on above: Performed By: #### F T3, TSH #### [facility] [address] [place], [place] [address] Dr. Gigi Guzman FREE T4on 09-20-2022 Free T4 [Mass/Vol] 0.97 ng/dL Normal 0.76-1.46 [facility] Comment on above: Performed By: #### F T4 #### [facility] [id number] Gigi Guzman TSHon 09-20-2022 TSH 2.154 uIU/mL Normal 0.358-3.740 [facility] Comment on above: Performed By: #### F T3, TSH #### [facility] [address] [place] [address] Dr. Gigi Guzman CULTURE URINEon 08-17-2022 CULTURE URINE Culture Observations : LIGHT GROWTH OF MIXED GENITAL [place]AR[place]. NO POTENTIAL PATHOGENS SEEN. Normal [facility] Comment on above: Performed By: #### U RCX #### [facility] [address] [address] [address] Gigi Guzman Automated erythrocytes count in urine sediment (number/area)Ordered By: Rashard Aguilar on 05-17-2022 RBC Auto (Urine sed) [#/Area] 3-4 [HPF] 0-4 [facility] Automated leukocytes count i n urine sediment (number/area)Ordered By: Rashard Aguilar on 05-17-2022 WBC Auto (Urine sed) [#/Area] 10-19 [HPF] 0-4 [facility] Automated urine hyaline cast s count (number/volume)Ordered By: Rashard Aguilar on 05-17-2022 Hyaline casts Auto (U) [#/Vol] None seen [LPF] 0-1 [facility] Comment on above: --- 05/17/221731 -- -Ur Hyaline Department Director previously reported as: None Seen /LPF Basophils Auto (Bld) [#/Vol] Ordered By: Rashard Aguilar on 05-17-2022 Basophils (Bld) [#/Vol] 0.1 10*3/uL 0.0-0.2 [facility] Basophils/100 WBC Auto (Bld) Ordered By: Rashard Aguilar on 05-17-2022 Basophils/100 WBC (Bld) 0.9 % . [facility] Bilirubin Test strip Ql (U)O rdered By: Rashard Aguilar on 05-17-2022 Bilirubin Ql (U) Negative Negative [facility] Blood hemoglobin measurement (mass/volume)Ordered By: Rashard Aguilar on 05-17-2022 Hemoglobin (Bld) [Mass/Vol] 13.3 g/dL 11.8-15.4 [facility] Blood leukocytes automated c ount (number/volume)Ordered By: Rashard Aguilar on 05-17-2022 WBC (Bld) [#/Vol] 5.5 10*3/uL 4.5-11.0 [facility] C reactive protein [Mass/vol ume] in Serum or PlasmaOrdered By: Rashard Aguilar on 05-17-2022 CRP [Mass/Vol] 0.9 mg/dL 0.0-1.0 [facility] Casts typing in urine sedime nt by light microscopyOrdered By: Rashard Aguilar on 05-17-2022 Casts LM Nom (Urine sed) None seen [LPF] None Seen [facility] Comment on above: --- 05/17/221731 -- -Ur Other Department Director previously reported as: None Seen /LPF Color Auto (U)Ordered By: Alta Aguilar on 05-17-2022 Color (U) Yellow Yellow [facility] Creatinine and Glomerular fi ltration rate.predicted panel (S/P/Bld)Ordered By: Rashard Aguilar on 05-17-2022 Creatinine [Mass/Vol] 0.84 mg/dL 0.44-1.03 [facility] Eosinophils Auto (Bld) [#/Vo l]Ordered By: Rashard Aguilar on 05-17-2022 Eosinophils (Bld) [#/Vol] 0.3 10*3/uL 0.0-0.45 [facility] Eosinophils/100 WBC Auto (Bl d)Ordered By: Rashard Aguilar on 05-17-2022 Eosinophils/100 WBC (Bld) 4.7 % . [facility] Erythrocyte distribution wid th Auto (RBC) [Ratio]Ordered By: Rashard Aguilar on 05-17-2022 Erythrocyte distribution width (RBC) [Ratio] 14.7 % 11.9-15.3 [facility] Erythrocyte sedimentation ra te by Photometric methodOrdered By: Rashard Aguilar on 05-17-2022 ESR Photometric method (Bld) [Velocity] 47 mm/hr 0-29 [facility] Estimated glomerular filtrat ion rate (GFR) non- AmericanOrdered By: Rashard Aguilar on 05-17-2022 GFR/1.73 sq M.predicted among non-blacks MDRD (S/P/Bld) [Vol rate/Area] > 60 mL/Min [facility] Hematocrit Auto (Bld) [Volum e fraction]Ordered By: Rashard Aguilar on 05-17-2022 Hematocrit (Bld) [Volume fraction] 40.6 % 34.0-46.4 [facility] Ketones Auto test strip (U) [Mass/Vol]Ordered By: Rashard Aguilar on 05-17-2022 Ketones (U) [Mass/Vol] Negative Negative [facility] - Hematology and Cell countsOrdered By: Rashard Aguilar on 05-17-2022 Nucleated RBC/100 WBC (Bld) [Ratio] 0.1 % 0-0.5 [facility] Lymphocytes Auto (Bld) [#/Vo l]Ordered By: Rashard Aguilar on 05-17-2022 Lymphocytes (Bld) [#/Vol] 1.6 10*3/uL 1.00-4.8 [facility] Lymphocytes/100 WBC Auto (Bl d)Ordered By: Rashard Aguilar on 05-17-2022 Lymphocytes/100 WBC (Bld) 29.3 % . [facility] MCH Auto (RBC) [Entitic mass ]Ordered By: Rashard Aguilar on 05-17-2022 MCH (RBC) [Entitic mass] 30.3 pg 24.7-34.3 [facility] MCHC Auto (RBC) [Mass/Vol]Or dered By: Rashard Aguilar on 05-17-2022 MCHC (RBC) [Mass/Vol] 32.6 g/dL 32.0-35.0 [facility] MCV Auto (RBC) [Entitic vol] Ordered By: Rashard Aguilar on 05-17-2022 MCV (RBC) [Entitic vol] 93.0 fL 80-100 [facility] Monocytes Auto (Bld) [#/Vol] Ordered By: Rashard Aguilar on 05-17-2022 Monocytes (Bld) [#/Vol] 0.5 10*3/uL 0.0-0.8 [facility] Monocytes/100 WBC Auto (Bld) Ordered By: Rashard Aguilar on 05-17-2022 Monocytes/100 WBC (Bld) 8.6 % . [facility] Neutrophils Auto (Bld) [#/Vo l]Ordered By: Rashard Aguilar on 05-17-2022 Neutrophils (Bld) [#/Vol] 3.1 10*3/uL 1.8-7.7 [facility] Neutrophils/100 WBC Auto (Bl d)Ordered By: Rashard Aguilar on 05-17-2022 Neutrophils/100 WBC (Bld) 56.5 % . [facility] Nitrite Test strip Ql (U)Ord ered By: Rashard Aguilar on 05-17-2022 Nitrite Ql (U) Negative Negative [facility] No Panel InformationOrdered By: Rashard Aguilar on 05-17-2022 Estimated GFR () > 60 mL/Min [facility] Comment on above: GFR estimated refere nce range: According to KDOQI guidelines, <60 ml/min/1.73m2 is sufficient to diagnose a patient with chronic kidney disease. Pharmacy Creatinine Clearance (Chem N/A [facility] Platelet mean volume Auto (B ld) [Entitic vol]Ordered By: Rashard Aguilar on 05-17-2022 Platelet mean volume (Bld) [Entitic vol] 7.0 fL 6.3-10.7 [facility] Platelets Auto (Bld) [#/Vol] Ordered By: Rashard Aguilar on 05-17-2022 Platelets (Bld) [#/Vol] 278 10*3/uL 150-450 [facility] Protein Auto test strip (U) [Mass/Vol]Ordered By: Rashard Aguilar on 05-17-2022 Protein (U) [Mass/Vol] Negative [facility] RBC Auto (Bld) [#/Vol]Ordere d By: Rashard Aguilar on 05-17-2022 RBC (Bld) [#/Vol] 4.37 10*6/uL 3.60-5.00 [facility] Specific gravity Auto test s trip (U) [Rel density]Ordered By: Rashard Aguilar on 05-17-2022 Specific gravity (U) [Rel density] 1.009 1.001-1.030 [facility] Squamous epithelial cells de tection in urine sediment by light microscopyOrdered By: Rashard Aguilar on 05-17-2022 Epithelial cells.squamous LM Ql (Urine sed) 5-9 [HPF] 0-2 [facility] Urine bacteria detection by automated methodOrdered By: Rashard Aguilar on 05-17-2022 Bacteria Auto Ql (U) None seen None Seen [facility] Urine clarity by refractomet ry automatedOrdered By: Rashard Aguilar on 05-17-2022 Clarity Refractometry automated (U) Clear Clear [facility] Urine glucose measurement by automated test strip (mass/volume)Ordered By: Rashard Aguilar on 05-17-2022 Glucose Auto test strip (U) [Mass/Vol] Normal mg/dL Normal [facility] Urine hemoglobin detection b y automated test stripOrdered By: Rashard Aguilar on 05-17-2022 Hemoglobin Auto test strip Ql (U) Negative Negative [facility] Urine leukocyte esterase det ection by automated test stripOrdered By: Rashard Aguilar on 05-17-2022 Leukocyte esterase Auto test strip Ql (U) 2+ Negative [facility] Urobilinogen Auto test strip (U) [Mass/Vol]Ordered By: Rashard Aguilar on 05-17-2022 Urobilinogen (U) [Mass/Vol] Normal mg/dL Normal [facility] pH Auto test strip (U)Ordere d By: Rashard Aguilar on 05-17-2022 pH (U) 5.5 [pH] 5.0-9.0 [facility] CULTURE URINEon 03-17-2022 CULTURE URINE Isolate [...] F Trimethoprim/Sulfameth oxazole <=20 S F Normal [facility] Comment on above: Performed By: #### U RCX #### [facility] [address] [place] [address] Dr. Gigi Guzman UA (CLEAN/CATCH) SCADA ENGINEER/MICRO I F IND.on 03-14-2022 Bilirubin Ql (U) Negative Normal NEGATIVE [facility] Comment on above: Performed By: #### U ACSIND, UMICRO #### [facility] [address] [place] [address] Dr. Gigi Guzman Clarity (U) CLEAR Normal CLEAR [facility] Comment on above: Performed By: #### U ACSIND, UMICRO #### [facility] [address] [place] [address] Dr. Gigi Guzman Color (U) DK. YELLOW Normal YELLOW [facility] Comment on above: Performed By: #### U ACSIND, UMICRO #### [facility] [address] [place] [address] Dr. Gigi Guzman Glucose Ql (U) Negative Normal NEGATIVE [facility] Comment on above: Performed By: #### U ACSIND, UMICRO #### [facility] [address] [place] [address] Dr. Gigi Guzman Hemoglobin Ql (U) Negative Normal NEGATIVE [facility] Comment on above: Performed By: #### U ACSIND, UMICRO #### [facility] [address] [place] [address] Dr. Gigi Guzman Ketones Ql (U) Negative Normal NEGATIVE [facility] Comment on above: Performed By: #### U ACSIND, UMICRO #### [facility] [address] [address] [address] Gigi Guzman LEUKOCYTES TRACE Abnormal NEGATIVE [facility] Comment on above: Performed By: #### U BREONNA PEREZICRO #### [facility] [address] [address] [address] Gigi Guzman Nitrite Ql (U) Positive Abnormal NEGATIVE [facility] Comment on above: Performed By: #### U ELLA PEREZRO #### [facility] [address] [address] [address] Gigi Guzman pH (U) 5.0 [pH] Normal 5-9 [facility] Comment on above: Performed By: #### U ELLA PEREZRO #### [facility] [address] [place] [address] Dr. Gigi Guzman SPEC GRAVITY 1.010 Normal 1.005-<=1.02 5 [facility] Comment on above: Performed By: #### U ELLA PEREZRO #### [facility] [address] [place] [address] Dr. Gigi Guzman UA PROTEIN Negative Normal NEGATIVE/ TRACE [facility] Comment on above: Performed By: #### U ELLA PEREZRO #### [facility] [address] [place] [address] Dr. Gigi Guzman UR MICRO IND INDICATED Normal [facility] Comment on above: Performed By: #### U ELLA PEREZRO #### [facility] [address] [address] [address] Gigi Guzman Urobilinogen Qn (U) 0.2 {Maren'U}/dL Normal 0.2 - 1. 0 [facility] Comment on above: Performed By: #### U ELLA PEREZRO #### [facility] [address] [place] [address] Dr. Gigi Guzman URINE MICROSCOPIC ONLYon BACTERIA SMALL Abnormal NONE SEEN [facility] Comment on above: Performed By: #### U ELLA PEREZRO #### [facility] [address] [place] [address] Dr. Gigi Guzman Bacteria identified Cx Nom (U) INDICATED Normal [facility] Comment on above: Performed By: #### U ACSIND, UMICRO #### [facility] [address] [place] [address] Dr. Gigi Guzman CAST NONE SEEN Normal NONE SEEN [facility] Comment on above: Performed By: #### U ACSIND, UMICRO #### [facility] [address] [place] [address] Dr. Gigi Guzman Crystals LM Nom (Urine sed) NONE SEEN Normal NONE SEEN [facility] Comment on above: Performed By: #### U ACSIND, UMICRO #### [facility] [address] [place] [address] Dr. Gigi Guzman Epithelial cells LM Ql (Urine sed) FEW Abnormal NONE SEEN /RARE [facility] Comment on above: Performed By: #### U ACSIND, UMICRO #### [facility] [address] [place] [address] Dr. Gigi Guzman MUCOUS NONE SEEN Normal NONE SEEN [facility] Comment on above: Performed By: #### U ACSIND, UMICRO #### [facility] [address] [place] [address] Dr. Gigi Guzman RBC 0-2 Normal 0-2 [facility] Comment on above: Performed By: #### U ACSIND, UMICRO #### [facility] [address] [place] [address] Dr. Gigi Guzman WBC 10-20 Abnormal NONE SEEN [facility] Comment on above: Performed By: #### U ACSIND, UMICRO #### [facility] [address] [place] [address] Dr. Gigi Guzman CULTURE URINEon 01-25-2022 CULTURE URINE Culture Observations : LIGHT GROWTH OF MIXED GENITAL GARFIELD. NO POTENTIAL PATHOGENS SEEN. Normal [facility] Comment on above: Performed By: #### U RCX #### [facility] [address] [place] [address] Dr. Gigi Guzman Urinalysis - AUTOMATEDon Appearance (U) cloudy [facility] Other Bilirubin Ql (U) Negative [employer] [facility] [employer] Other Color (U) orange [facility] Other Glucose Ql (U) Negative [facility] Other Hemoglobin Ql (U) Negative [employer] [facility] [employer] Other Ketones Ql (U) Negative [facility] Other Leukocyte esterase Test strip Ql (U) trace [facility] Other Nitrite Ql (U) Positive [facility] Other pH (U) 5.0 [pH] [facility] Other Protein Ql (U) Negative [facility] Other Specific gravity (U) [Rel density] >1.030 [facility] Other Urobilinogen (U) [Mass/Vol] 0.2 mg/dL [facility] Other Urinalysis - AUTOMATED No rt [employer] Other Urine Cultureon 12-21-2021 Urine Culture >100,000 [facility] Other ANAon 07-06-2017 KAILEY PATTERN HOMOGENEOUS AND SPECKLED Normal The [facility] Comment on above: Performed By: #### 0 0121, 50739 ####[facility] [facility] [place] [address], [facility] KAILEY SCREEN 1:160 Abnormal <1:40,1:40 The [facility] Comment on above: Performed By: #### 0 0121, 65382 ####[facility] [facility] [place] [address], [facility] ANTI DNAon 07-06-2017 ANTI DNA <1:10 Normal <1:10 The [facility] Comment on above: Performed By: #### 0 0121, 21212 ####[facility] [place] [address], [facility] ANTI-BETA 2 GLYCOPROTEIN 1on 07-06-2017 ANTI B2GP1 IGA 4.5 a units Normal 0.0-19.9 The [facility] Comment on above: Performed By: #### 0 0121, 84592 ####[facility] [facility] [place] [place] [address], [facility] ANTI B2GP1 IGG 0.7 g units Normal 0.0-19.9 The [facility] Comment on above: Performed By: #### 0 0121, 05728 ####[facility] [facility] [place] [address], [facility] ANTI B2GP1 IGM 3.8 m units Normal 0.0-19.9 The [facility] Comment on above: Performed By: #### 0 0121, 96365 ####[facility] [facility] [place] [address], [facility] ANTI-ENAon 07-06-2017 ANTI SM Negative Normal NEG,NEGATIVE ,Neg The [facility] Comment on above: Performed By: #### 0 0121, 12766 ####[facility] [facility] [place] [address], [facility] ANTI SM/ANTIRNP Negative Normal NEG,NEGATIVE ,Neg The [facility] Comment on above: Performed By: #### 0 0121, 46159 ####[facility] [facility] [place] [address], [facility] ANTICARDIOLIPIN ANTIBODYon 1 09-05-2016 CARDIOLIPIN IGA 3.4 APL Normal 0.0-21.9 The [facility] Comment on above: Performed By: #### 0 0121, 92877 ####[facility] [place] [address].[place] [address], [facility] CARDIOLIPIN IGG 7.7 GPL Normal 0.0-22.9 The [facility] Comment on above: Performed By: #### 0 0121, 50545 ####[facility] CARDIOLIPIN IGM 1.2 MPL Normal 0.0-10.9 The [facility] Comment on above: Performed By: #### 0 0121, 64949 ####[facility] C REACTIVE PROTEINon 017 C reactive protein (CRP) 6.1 mg/L Normal 0.0-7.0 The [facility] Comment on above: Performed By: #### 1 0238, 21731, 04770 ####[facility] [facility].[address] CBC W/DIFFon 07-06-2017 Basophils Auto #/vol (Bld) 0.4 % Normal 0.0-2.0 The [facility] Comment on above: Performed By: #### 5 0103, 37824 ####[id number] [facility].[address] Eosinophils/100 leukocytes 2.9 % Normal 0.0-5.0 The [facility] Comment on above: Performed By: #### 5 0103, 79627 ####[facility] [facility].[address] Erythrocyte distribution width Auto Ratio (RBC) 15.1 % Normal 11.5-16.9 The [facility] Comment on above: Performed By: #### 5 0103, 60935 ####[facility] [facility].[address] Erythrocytes (RBC) 4.47 mill/mm3 Normal 3.50-5.50 The [facility] Comment on above: Performed By: #### 5 0103, 56027 ####[facility] [facility].[address] Hematocrit (HCT) 40.7 % Normal 36.0-48.0 The [facility] Comment on above: Performed By: #### 5 102, 53215 ####[facility] Hemoglobin mass conc (Bld) 13.5 g/dL Normal 12.0-15.0 The [facility] Comment on above: Performed By: #### 5 102, 81102 ####[facility] Lymphocytes/100 leukocytes 27.3 % Normal 20.0-40.0 The [facility] Comment on above: Performed By: #### 5 102, 49587 ####[address] [facility].[address] MCH 30.1 pg Normal 24.0-32.0 The [facility] Comment on above: Performed By: #### 102, 96909 ####[facility] MCHC mass conc (RBC) 33.0 g/dL Normal 32.0-36.0 The [facility] Comment on above: Performed By: #### 5 102, 52145 ####[facility] [facility].[address] MCV 91.1 fL Normal 80.0-100.0 The [facility] Comment on above: Performed By: #### 102, 89027 ####[facility] METHOD Normal RBC Morphology Normal The [facility] Comment on above: Performed By: #### 5 102, 26594 ####[facility] [place] [address], [facility] MONOS 6.6 % Normal 2-8 The [facility] Comment on above: Performed By: #### 5 010, 22331 ####[facility] [facility].[address] Neutrophils/100 leukocytes 62.8 % Normal 50-70 The [facility] Comment on above: Performed By: #### 5 010, 79724 ####[facility] PLAT CNT 209 Thou/mm3 Normal 100-400 The [facility] Comment on above: Performed By: #### 5 010, 28451 ####[facility] [facility].[address] WBC (Leukocytes) 7.9 Thou/mm3 Normal 4.0-10.0 The [facility] Comment on above: Performed By: #### 5 010, 20513 ####[facility] [facility].[address] COMP METABOLIC PANELon 07-06 Alanine aminotransferase (ALT) 17 U/L Normal 7-52 The [facility] Comment on above: Performed By: #### 0 0121, 27390 ####[address] [facility].[address] Albumin 4.4 g/dL Normal 3.5-5.7 The [facility] Comment on above: Performed By: #### 0 0121, 00663 ####[facility] [facility].[address] ALKALINE PHOSPH 54 IU/L Normal 34-104 The [facility] Comment on above: Performed By: #### 0 0121, 38297 ####[facility] [facility].[address] Aspartate aminotransferase (AST) 25 U/L Normal 13-39 The [facility] Comment on above: Performed By: #### 0 0121, 42205 ####[facility] [facility] [place] [address], [facility] Bilirubin (total) 0.4 mg/dL Normal 0.3-1.0 The [facility] Comment on above: Performed By: #### 0 0121, 98205 ####[facility] [place] [address], [place] Calcium 9.4 mg/dL Normal 8.6-10.3 The [facility] Comment on above: Performed By: #### 0 0121, 46637 ####[facility] [facility] [place] [place] [address], [place] Chloride 105 mmol/L Normal 98-107 The [facility] Comment on above: Performed By: #### 0 0121, 25630 ####[facility] [facility] [place] [place] [address], [place] CO2 28 mmol/L Normal 21-31 The [facility] Comment on above: Performed By: #### 0 0121, 91566 ####[facility] [facility] [place] [address], [place] Creatinine 0.88 mg/dL Normal 0.60-1.20 The [facility] Comment on above: Performed By: #### 0 0121, 49637 ####[facility] [facility] [place] [address], [facility] eGFR (black) mL/min/{1.73_m2} Normal >60 The [facility] Comment on above: Result Comment: Calc ulation may not be valid for patients over 70 years Performed By: #### 0 0121, 33107 ####[facility] [facility] [place] [address], [facility] eGFR (non-black) mL/min/{1.73_m2} Normal >60 Th e [facility] Comment on above: Result Comment: Calc ulation may not be valid for patients over 70 years Performed By: #### 0 0121, 56140 ####[facility] [place] [address], [facility] Glucose mass conc 90 mg/dL Normal 70-100 The [facility] Comment on above: Performed By: #### 0 0121, 96955 ####[facility] [place] [address], [facility] Potassium molar conc 3.9 mmol/L Normal 3.5-5.1 The [facility] Comment on above: Performed By: #### 0 0121, 88350 ####[facility] [place] [address], [facility] Protein 7.2 g/dL Normal 6.0-8.3 The [facility] Comment on above: Performed By: #### 0 0121, 22584 ####[facility] [place] [address], [facility] Sodium 137 mmol/L Normal 136-145 The [facility] Comment on above: Performed By: #### 0 0121, 17903 ####[facility] [place] [address], [facility] Urea nitrogen 16 mg/dL Normal 7-25 The [facility] Comment on above: Performed By: #### 0 0121, 63826 ####[facility] [place] [address], [facility] COMPLEMENT 3on 07-06-2017 COMPLEMENT 3 125 mg/dL Normal 79-152 The [facility] Comment on above: Performed By: #### 1 0238, 54697, 73730 ####[facility] [place] [address], [facility] COMPLEMENT 4on 07-06-2017 COMPLEMENT 4 28 mg/dL Normal 16-38 The [facility] Comment on above: Performed By: #### 1 0238, 18686, 47743 ####[facility] [place] [address], [place] CPKon 07-06-2017 Creatine kinase (CK) 55 U/L Normal 30-223 The [facility] Comment on above: Performed By: #### 0 0121, 45376 ####[facility] [place] [address], [facility] CREATININE URINE RANDOMon Creatinine 87.0 mg/dL Normal The [facility] Comment on above: Result Comment: Ther e are no established reference values for random urine specimens Performed By: #### 4 1802, 86480 ####[facility] [place] [address], [facility] SEDIMENTATION RATEon 017 SED RATE 22 mm/hr High 0-20 The [facility] Comment on above: Performed By: #### 5 0103, 35420 ####[facility] SJOGRENS ANTIBODIESon 2016 SS-A Negative Normal NEG,NEGATIVE ,Neg The [facility] Comment on above: Performed By: #### 0 0121, 65919 ####[facility] [place] [address], [facility] SS-B Negative Normal NEG,NEGATIVE ,Neg The [facility] Comment on above: Performed By: #### 0 0121, 92397 ####[facility] [place] [address], [facility] T PROT UR Rhianna 07-06-2017 U TOTAL PROTEIN 10.0 mg/dL Normal The [facility] Comment on above: Result Comment: Ther e are no established reference values for random urine specimens Performed By: #### 4 1802, 34575 ####[facility] [place] [address], [facility] URINALYSISon 07-06-2017 Bilirubin (total) Negative Normal NEGATIVE The [facility] Comment on above: Performed By: #### 1 0008 ####[facility] [place] [address], [facility] BLOOD Negative Normal NEGATIVE The [facility] Comment on above: Performed By: #### 1 0008 ####[facility] [facility] [place] [address], [facility] EPIS MANY Abnormal FEW The [facility] Comment on above: Performed By: #### 1 0008 ####[facility] [facility] [place] [place] [address], [facility] Erythrocytes (RBC) 0-2 Abnormal 0-0 The [facility] Comment on above: Performed By: #### 1 0008 ####[facility] [facility] [place] [address], [facility] Glucose mass conc Negative Normal NEGATIVE The [facility] Comment on above: Performed By: #### 1 0008 ####[facility] [facility] [place] [address], [facility] KETONE Negative Normal NEGATIVE The [facility] Comment on above: Performed By: #### 1 0008 ####[facility] [facility] [place] [address], [facility] LEUK GERRY TRACE Abnormal NEGATIVE The [facility] Comment on above: Performed By: #### 1 0008 ####[facility] [facility] [place] [address], [facility] MUCUS THREADS OCC Abnormal NONE SEEN The [facility] Comment on above: Performed By: #### 1 0008 ####[facility] [facility] [place] [address], [facility] pH of blood 5.0 [pH] Normal 5.0-8.0 The [facility] Comment on above: Performed By: #### 1 0008 ####[facility] [facility] [place] [address], [facility] Protein Negative Normal NEGATIVE The [facility] Comment on above: Performed By: #### 1 0008 ####[facility] [facility].[address] SPEC GRAV 1.013 Low 1.015-1.020 The [facility] Comment on above: Performed By: #### 1 0008 ####[facility] [facility] [place] [address], [facility] Urine, appearance CLEAR Normal CLEAR The [facility] Comment on above: Performed By: #### 1 0008 ####[facility] [facility] [place] [address], [facility] Urine, bacteria in sediment OCC Abnormal NONE SEEN The [facility] Comment on above: Performed By: #### 1 0008 ####[facility] [facility] [place] [address], [facility] Urine, color SHAYY Abnormal YELLOW The [facility] Comment on above: Performed By: #### 1 0008 ####[facility] [facility] [place] [address], [facility] Urine, nitrite presence Positive Abnormal NEGATIVE The [facility] Comment on above: Performed By: #### 1 0008 ####[facility] [facility] [place] [address], [facility] WBC UA 6-10 Abnormal 0-0 The [facility] Comment on above: Performed By: #### 1 0008 ####[facility] [facility].[address] Vital Signs Date Time Vital Sign Value Performing Clinician Faci lity 08-17-2023 13:40-0500 Body height 167.64 cm Shayy Garza Other [facility] Other 08-17-2023 13:40-0500 Body mass index (BMI) [Ratio] 26.31 kg/m2 Shayy Garza Other [facility] Other 08-17-2023 13:40-0500 Body temperature 97.9 [degF] Shayy Garza Other [facility] Other 08-17-2023 13:40-0500 Body weight 73.94 kg Shayy Garza Other [facility] Other 08-17-2023 13:40-0500 Respiratory rate 18 /min Shayy Garza Other [facility] Other 08-17-2023 13:40-0500 SaO2% (BldA) [Mass fraction] 96 % Shayy Garza Other [facility] Other 08-01-2023 09:00-0500 Body height 167.64 cm Mary Paulmond Other [facility] Other 08-01-2023 09:00-0500 Body mass index (BMI) [Ratio] 26.02 kg/m2 Mary Toure Other [facility] Other 08-01-2023 09:00-0500 Body temperature 98.1 [degF] Mary Paulmond Other [facility] Other 08-01-2023 09:00-0500 Body weight 73.12 kg Mary Paulmond Other [facility] Other 08-01-2023 09:00-0500 Diastolic blood pressure 97 mm[Hg] Mary Tejal Other [facility] Other 08-01-2023 09:00-0500 Respiratory rate 18 /min Mary Paulmond Other [facility] Other 08-01-2023 09:00-0500 SaO2% (BldA) [Mass fraction] 95 % Mary Toure Other [facility] Other 08-01-2023 09:00-0500 Systolic blood pressure 166 mm[Hg] Mary Toure Other [facility] Other 06-01-2023 14:54-0400 Diastolic blood pressure 88 mm[Hg] Rahul Christofferson [facility] 06-01-2023 14:54-0400 Heart rate 78 /min Rahul Christofferson [facility] 06-01-2023 14:54-0400 SaO2% (BldA) [Mass fraction] 97 % Rahul Christofferson [facility] 06-01-2023 14:54-0400 Systolic blood pressure 138 mm[Hg] Rahul Christofferson [facility] 04-20-2023 14:33-0400 Blood Pressure Location Rahul Christofferson [facility] 04-20-2023 14:33-0400 Diastolic blood pressure 72 mm[Hg] Rahul Christofferson [facility] 04-20-2023 14:33-0400 Heart rate 76 /min Rahul Christofferson [facility] 04-20-2023 14:33-0400 SaO2% (BldA) [Mass fraction] 96 % Rahul Christofferson [facility] 04-20-2023 14:33-0400 Systolic blood pressure 128 mm[Hg] Rahul Christofferson [facility] 12-21-2021 13:35-0400 Body height 167.64 cm Mary Toure Other [facility] [employer] Other 12-21-2021 13:35-0400 Body mass index (BMI) [Ratio] 28.73 kg/m2 Mary Toure Other [facility] Other 12-21-2021 13:35-0400 Body temperature 97.9 [degF] Mary Toure Other [facility] Other 12-21-2021 13:35-0400 Body weight 80.74 kg Mary Toure Other [facility] Other 12-21-2021 13:35-0400 Diastolic blood pressure 66 mm[Hg] Mary Toure Other [facility] Other 12-21-2021 13:35-0400 Respiratory rate 16 /min Mary Toure Other [facility] Other 12-21-2021 13:35-0400 SaO2% (BldA) [Mass fraction] 97 % Mary Toure Other [facility] Other 12-21-2021 13:35-0400 Systolic blood pressure 129 mm[Hg] Mary Toure Other [facility] Other Encounters Encounter Date Encounter Type Care Provider Facility Start: 12-19-2023 End: 12-19-2023 ambulatory [facility] Start: 12-12-2023 End: 12-12-2023 ambulatory MICHAEL Pamela [facility] Start: 11-13-2023 End: 11-14-2023 ambulatory XXXX NONE Facility:[facility] Start: 11-13-2023 End: 11-13-2023 Patient encounter procedure Rahul Salas [facility] Start: 11-08-2023 End: 11-08-2023 ambulatory SHAIKH BENNETT [...] Start: 09-12-2023 End: 09-12-2023 ambulatory Rashard Aguilar Facility:[facility] Start: 09-12-2023 End: 09-12-2023 ambulatory PHYSICIAN NO [facility] Work Phone: Start: 09-12-2023 End: 09-12-2023 Patient encounter procedure PHYSICIAN NO [facility] [address] Work Phone: Start: 09-05-2023 End: 09-05-2023 ambulatory SHAIKH BENNETT Not Available Start: 08-28-2023 End: 08-29-2023 ambulatory Gem Contreras [facility] Start: 08-28-2023 End: 08-28-2023 Patient encounter procedure Gem Contreras [facility] Start: 08-20-2023 End: 08-20-2023 ambulatory Shayy Garza Other [facility] Other Start: 08-20-2023 Telephone encounter Shayy Garza [facility] [address] Start: 08-17-2023 End: 08-17-2023 ambulatory Shayy Garza Facility:[facility] Start: 08-17-2023 End: 08-17-2023 Departed Referred PHYSICIAN NO [facility] [address] Work Phone: Start: 08-17-2023 End: 08-17-2023 ambulatory PHYSICIAN NO [facility] Work Phone: Start: 08-17-2023 Office outpatient visit 15 minutes Shayy Garza [facility] Start: 08-17-2023 End: 08-17-2023 Patient encounter procedure PHYSICIAN NO [facility] [place] Work Phone: Start: 2023 End: 08-16-2023 ambulatory Camelia LOW Facility:[facility] Start: 08-01-2023 Office outpatient visit 15 minutes Mary Toure [facility] Start: 08-01-2023 End: 08-01-2023 ambulatory Mary Toure [facility] Other Start: 08-01-2023 End: 08-01-2023 Departed Referred PHYSICIAN NO [facility] [address] Work Phone: Start: 07-31-2023 End: 08-01-2023 ambulatory Gem Contreras Facility:[facility] Start: 07-31-2023 End: 08-01-2023 Patient encounter procedure Gem Contreras [facility] Start: 07-24-2023 End: 07-25-2023 ambulatory SERA JENSEN Not Available Start: 07-14-2023 End: 07-15-2023 ambulatory Lidya Post Facility:[facility] Start: 06-29-2023 ambulatory Tonio Levy Facility:[facility] Start: 06-23-2023 ambulatory Gem Contreras Facility:[facility] Start: 06-22-2023 End: 06-23-2023 ambulatory Lidya Post Facility:[facility] Start: 06-13-2023 ambulatory Gem Contreras Facility :[facility] Start: 06-06-2023 End: 06-07-2023 ambulatory Gem Contreras Facility:[facility] Start: 06-06-2023 End: 06-06-2023 Patient encounter procedure Gem Contreras [facility] Start: 06-01-2023 End: 06-02-2023 ambulatory Lidya Post Facility:[facility] [facility] Start: 06-01-2023 End: 06-01-2023 Patient encounter procedure Rahul Salas [facility] Start: 05-31-2023 [facility]ulatory [facility] Start: 05-30-2023 End: 05-31-2023 ambulatory Lidya Post Facility:[facility] [place] Start: 05-25-2023 End: 05-26-2023 ambulatory XXXX NONE Facility:[facility] [place] [facility] Start: 05-11-2023 End: 05-12-2023 ambulatory Rahul Salas Facility:[facility] [place] [facility] Start: 05-11-2023 End: 05-11-2023 Patient encounter procedure Rahul Salas [facility] Start: 05-09-2023 Telephone encounter Shayy Garza [facility] Start: 05-09-2023 End: 05-10-2023 ambulatory Franco SCHERER [facility] Other Start: 05-04-2023 End: 05-04-2023 ambulatory Shayy Garza Facility:[facility] Start: 04-20-2023 End: 04-21-2023 ambulatory Lidya Post Facility:[facility] [facility] Start: 04-20-2023 End: 04-20-2023 Patient encounter procedure Rahul Salas [facility] Start: 04-17-2023 End: 04-18-2023 ambulatory Lidya Post Facility:[facility] [place] Start: 03-28-2023 End: 03-29-2023 ambulatory Lidya Post Facility:[facility] [place] Start: 03-20-2023 End: 03-21-2023 ambulatory Lidya Post Facility:[facility] [place] Start: 03-02-2023 End: 03-02-2023 ambulatory Rashard Aguilar Facility:[facility] Start: 03-02-2023 End: 03-02-2023 ambulatory MD Ashutosh Santana Work Phone: [facility] Work Phone: Start: 03-02-2023 End: 03-02-2023 Patient encounter procedure MD Ashutosh Santana Work Phone: [facility] [address] Work Phone: Start: 01-24-2023 End: 01-24-2023 ambulatory Rashard Aguilar Facility:[facility] Start: 01-24-2023 End: 01-24-2023 ambulatory MD Ashutosh Santana Work Phone: [facility] Work Phone: Start: 01-24-2023 End: 01-24-2023 Patient encounter procedure MD Ashutosh Santana Work Phone: [facility] [address] Work Phone: Start: 12-20-2022 End: 12-21-2022 ambulatory Lidya Post Facility:[facility] Start: 10-21-2022 End: 10-22-2022 ambulatory PILI VAUGHNAMINAH [facility] Start: 09-20-2022 End: 09-21-[address] ASHUTOSH SANTANA Facility:[facility] Start: 08-17-2022 End: 08-18-[address] ASHUTOSH SANTANA Facility:[facility] Start: 05-17-2022 End: 05-17-2022 ambulatory MD Ashutosh Santana Work Phone: [facility] Work Phone: Start: 05-17-2022 End: 05-17-2022 Patient encounter procedure MD Ashutosh Santana Work Phone: [facility] [address] Start: 03-14-2022 End: 03-15-[address] ASHUTOSH SANTANA Facility:[facility] Start: 01-25-2022 End: 01-26-[address] ASHUTOSH SANTANA Facility:[facility] Start: 01-06-2022 End: 01-06-2022 ambulatory Mary Toure Other [facility] Other Start: 01-06-2022 Telephone encounter Mary Toure [facility] Start: 12-21-2021 End: 12-21-2021 ambulatory Mary Toure Other [facility] Other Start: 12-21-2021 Office outpatient visit 25 minutes Mary Toure [facility] Start: 09-27-[address] ASHUTOSH SANTANA Facilit y:[facility] Start: 07-06-2017 End: 07-07-2017 Ambulatory LISET CEDENO Facility:[facility] Procedures Date Procedure Procedure Detail Performing Clinician Start: 08-17-2023 Urine culture PHYSICIAN NO FAMILY Start: 08-01-2023 Urine culture PHYSICIAN NO FAMILY Start: 03-02-2023 Plain chest X-ray MD Vikram Santana Work Phone: Start: 01-24-2023 Urine culture MD Ashutosh harrington Work Phone: Appendectomy Rahul zuniga Cardiac catheter (ph ysical object) Rahul Salas Comment on above: 2015 Cholecystectomy Rahul santamaria Comment on above: bile duct surgery Coronary artery bypa ss grafts x 2 Rahul Salas Comment on above: 04/2020 Total abdominal hysterectomy with bilateral salpingo-oophorectomy Rahul Salas Plan of Treatment Date Care Activity Detail Author Start: 08-03-2024 Medicare Annual Wellness (AWV) Medicare Annual Wellness (AWV) [facility] Start: 11-08-2023 End: 11-08-2023 Patient encounter procedure 11/08/2023 3:30 PM EDT Office Visit [facility] [address] [place] [id number] Shaikh Leung MD [address] [place] [address] [facility] Start: 09-12-2023 Bacteria identified in Urine by Culture [facility] Start: 08-17-2023 Bacteria identified in Urine by Culture [facility] Start: 04-21-2023 Influenza vaccination Influenza Vaccine (#1) [facility] Start: 01-24-2023 Bacteria identified in Urine by Culture Urine Culture [facility] Start: 05-17-2022 [facility] Start: 1951 Pneumococcal Vaccine: 65+ Years (1 - PCV) Pneumococcal Vaccine: 65+ Years (1 - PCV) [facility] Bacteria identified in Urine by Culture [facility] Complement C3 [Mass/ volume] in Serum or Plasma [facility] Work Phone: Complement C3 [Mass/ volume] in Serum or Plasma [facility] Complement C4 [Mass/ volume] in Serum or Plasma [facility] Work Phone: Complement C4 [Mass/ volume] in Serum or Plasma [facility] Myeloperoxidase Ab [Units/volume] in Serum by Immunoassay [facility] Work Phone: Neutrophil cytoplasm ic Ab.classic [Titer] in Serum by Immunofluorescence [facility] Work Phone: Neutrophil cytoplasm ic Ab.perinuclear.atypical [Titer] in Serum by Immunofluorescence [facility] Work Phone: P-ANCA measurement [facility] Work Phone: Proteinase 3 Ab [Units/volume] in Serum by Immunoassay [facility] Work Phone: Immunizations Immunization Date Immunization Notes Care Provider Tonja martinez NEGATED: Highlighted row has not occurred!05-30-2023 influenza virus vaccine, unspecified formulation Rahul Salas [facility] NEGATED: Highlighted row has not occurred!11-02-2022 influenza virus vaccine, unspecified formulation Rahul Salas [facility] [place] NEGATED: Highlighted row has not occurred!11-02-2022 SARS-CoV-2 mRNA (tokamin 5y-11y) vaccine Rahul Salas [facility] Payers Date Payer Category Payer Self-pay [id number] 2022 Medicare ANTHEM MEDICARE ADVANTAGE ANTH MEDICARE ADVANTAGE [id number] 2022-Present [address] [place] [address] [id number] 2021 Medicaid MEDICAID [facility] [id number] 2021-Present [phone] [address] [place] [address] Medicaid [id number] 2020 Medicare [id number] 2.16.840.1.464452.19 1959 Medicaid [id number] 2.16.840.1.992165.19 1959 Medicare [id number] 2.16.840.1.942788.19 1945 Unknown [id number] 2.16.840.1.700614.3.579.2. 593 1945 Unknown [id number] 2.16.840.1.265479.3.579.2. 593 1945 Unknown [id number] 2.16.840.1.307074.3.579.2. 593 1945 Unknown [id number] 2.16.840.1.333152.3.579.2. 593 1945 Unknown [id number] 2.16.840.1.316256.3.579.2. 593 1945 Unknown [id number] 2.16.840.1.371743.3.579.2. 175 1945 Unknown [id number] 2.16.840.1.154387.3.579.2. 1259 1945 Unknown [id number] 2.16.840.1.266629.3.579.2. 1259 1945 Unknown [id number] 2.16.840.1.244550.3.579.2. 1259 1945 Unknown [id number] 2.16.840.1.080296.3.579.2. 1259 1945 Unknown [id number] 2.16.840.1.825161.3.579.2. 1259 1945 Unknown [id number] 2.16.840.1.929797.3.579.2. 1259 1945 Unknown [id number] 2.16.840.1.028622.3.579.2. 727 1945 Unknown [id number] 2.16.840.1.128464.3.579.2. 727 1945 Unknown [id number] 2.16.840.1.099208.3.579.2. 727 1945 Unknown [id number] 2.16.840.1.962412.3.579.2. 727 1945 Unknown [id number] 2.16.840.1.753897.3.579.2. 727 1945 Unknown [id number] 2.16.840.1.662914.3.579.2. 727 1945 Unknown [id number] 2.16.840.1.361431.3.579.2. 727 1945 Unknown [id number] 2.16.840.1.880002.3.579.2. 727 1945 Unknown [id number] 2.16.840.1.008442.3.579.2. 727 1945 Unknown [id number] 2.16.840.1.500165.3.579.2. 727 1945 Unknown [id number] 2.16.840.1.940403.3.579.2. 727 1945 Unknown [id number] 2.16.840.1.710986.3.579.2. 727 1945 Unknown [id number] 2.16.840.1.247658.3.579.2. 727 1945 Unknown [id number] 2.16.840.1.005029.3.579.2. 727 1945 Unknown [id number] 2.16.840.1.181859.3.579.2. 727 1945 Unknown [id number] 2.16.840.1.355792.3.579.2. 727 1945 Unknown [id number] 2.16.840.1.924094.3.579.2. 727 1945 Unknown [id number] 2.16.840.1.014073.3.579.2. 727 1945 Unknown [id number] 2.16.840.1.326366.3.579.2. 727 1945 Unknown [id number] 2.16.840.1.737509.3.579.2. 1286 1945 Unknown [id number] 2.16.840.1.534666.3.579.2. 1286 Blue Cross Blue Shield IAN [id number] Medicare Medicare Nonpatient [id number] Unknown [id number] 2.16.840.1.991634.3.579.2. 531 Unknown [id number] 2.16.840.1.892838.3.579.2. 531 Unknown [id number] 2.16.840.1.478262.3.579.2. 531 Unknown [id number] 2.16.840.1.337109.3.579.2. 531 Unknown [id number] 2.16.840.1.067903.3.579.2. 531 Unknown [id number] 2.16.840.1.389095.3.579.2. 531 Social History Date Type Detail Facility Unknown if ever smoked [facility] Other Start: 09-05-2023 Sex Assigned At F [facility] Start: 1945 Sex Assigned At Female F [facility] Start: 04-17-2023 End: 06-22-2023 Tobacco smoking status Never smoked tobacco (finding) [facility] Tobacco smoking status Never [facility] Start: 05-01-2023 Tobacco use and exposure Smokeless tobacco non-user [facility] Start: 09-05-2023 Alcohol intake Lifetime non-d yessica (finding) [facility] Start: 09-05-2023 History of Social function [facility] Start: 05-01-2023 Alcohol Comment caffeine intak e: 1-2 cups per day. [facility] Start: 1945 Sex Assigned At Not on file [place] [facility] Functional Status Date Assessment Result Facility 06-01-2023 Functional Status No [facility] 04-20-2023 Functional Status No [facility] Clinical Notes 12-21-2021 to 08-17-2023 Note [...] understanding and is agreeable to treatment plan. [facility] Other 12-12-2023 Evaluation note* Encounter Date Diagnosis [...] as needed for aches pains or fevers. [facility] Other 09-22-2023 NoteEchocardiology Procedure Exam Date/Time Accession # Ordering Echo Transthoracic 05/11/2023 11:40 EDT [id number] Portillo PIPER, Rahul Varner CPT code 91948 85881 Reason for Exam (Echo Transthoracic Complete) I25.10;CAD Coronary artery disease Report Version: 1 Study ID: [id number] [address] Adult Echocardiogram Report Name: TEA RAHMAN Study Date: 05/11/2023, 10: 55 AM Patient Location: [facility] : 1945 (MM/DD/YYYY) Gender: Female Age: 77 Years Height: 167.64 cm BP: 105 / 64 mmHg Weight: 79.38 kg HR: 62 bpm BSA: 1.89 m? Ordering Physician: Rahul Salas Referring Physician: Rahul Salas Performed By: Dunia Orellana RDMS, RVT Reason For Study: CAD Coronary artery disease History: CABG x 2 9/20/20, HTN, Lupus Interpretation Summary Normal LV size [...] E' Carmela: 5.2 cm/sec Lat Peak E' Acrmela: 7.1 cm/sec MV dec time: 0.27 sec [...] Signed by: Rahul Salas MD Transcribed by: [facility] Technologist: [facility]05-03-2022 Evaluation note* Encounter Date Diagnosis Assessment [...] the ER for worsening symptoms or concerns [facility] Other Evaluation + Plan note Future Appointments Appointment Date:05/25/2023 03:15:00 PM Scheduled Provider:Rahul Salas MD [facility] [place] Appointment Type:Cardiology Follow Up (FT) Appointment Date:06/13/2023 01:20:00 PM Scheduled Provider:Lidya Post MD [facility] Future Appointments Appointment Date:06/06/2023 01:00:00 PM Scheduled Provider:Gem [place] Location:[facility] [place] [facility] Appointment Type:BH Therapy New Patient Appointment Date:06/22/2023 04:00:00 PM Scheduled Provider:Lidya Post MD Location:[facility] Appointment Type: Open Appointment Date:06/29/2023 02:30:00 PM Scheduled Provider:Tonio Levy MD Location:[facility] [place] [facility] Appointment Type:BADH New Patient Appointment Date:07/14/2023 09:30:00 AM Scheduled Provider: Location[facility] Appointment Type: [facility] Wellness [facility] Future Appointments Appointment Date:06/13/2023 01:00:00 PM Scheduled Provider:Gem Mills Location:[facility] [place] [facility] Appointment Type:BH Therapy 60 Appointment Date:06/22/2023 04:00:00 PM Scheduled Provider:Lidya Post MD Location[facility] Appointment Type: Open Appointment Date:06/29/2023 02:30:00 PM Scheduled Provider:Tonio Levy MD Location:[facility] [place] [facility] Appointment Type:BADH New Patient Appointment Date:07/14/2023 09:30:00 AM Scheduled Provider: Location:[facility] Appointment Type:FM Medicare Wellness Subsequent [facility] evaluation + Plan note Future Appointments Appointment Date:08/10/2023 03:00:00 PM Scheduled Provider:Camelia LOW CNP [facility] Type:Cardiology ED Follow Up (FT) [facility] evaluation + Plan note Future Appointments Appointment Date:11/13/2023 12:15:00 PM Scheduled Provider:Rahul Salas MD [facility] Type:Cardiology Follow Up (FT) [facility] [employer] evaluation + Plan note Future Appointments Appointment Date:05/16/2024 01:00:00 PM Scheduled Provider:Rahul Salas MD Location[facility] Appointment Type:Cardiology Follow Up (FT) [facility] noteNo InformationNortWilkes[facility] Other [employer]jac[employer] noteNo assessment information available [facility] Work Phone: Evjlzqhfob note* Diagnosis Nausea- Primary Nausea alone documented [...] heart Hospitalization History see above surgical hx [facility] Other Hospital course Narrative No data available for this section [facility] No data available for this section [facility] No data available for this section [facility] Summary Purpose Family History No Family [...] section and content) DATE CREATED AUTHOR 02/13/2018 [facility] DATE CREATED AUTHOR AUTHOR'S ORGANIZ ATION 09/21/2022 [facility] DATE CREATED AUTHOR AUTHOR'S ORGANIZ ATION 08/27/2023 [facility] DATE CREATED AUTHOR AUTHOR'S ORGANIZ ATION 08/29/2023 [facility] DATE CREATED AUTHOR AUTHOR'S ORGANIZ ATION 09/29/2023 [facility] DATE CREATED AUTHOR AUTHOR'S ORGANIZ ATION 11/10/2023 [facility] EPIC DATE CREATED AUTHOR AUTHOR'S ORGANIZ ATION 12/05/2023 [facility] DATE CREATED AUTHOR AUTHOR'S ORGANIZ ATION 12/20/2023 [facility] REASON FOR VISIT (unrecogniz ed section and [...] Team Status: Inactive Member Role Status Dates Ashuotsh Santana MD Primary Care Provider Active Rashard [...] September 12, 2023 End: September 12, 2023 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 [employer] [facility]. provides no warranty or guarantee of the accuracy or completeness of information in this document.
--- NOTE | 2023-12-21 06:32 | ED.ABDPAIN1 ---
HPI - Abdominal Pain General Chief Complaint: Abdominal Pain Stated Complaint: PRESSURE ON BOWEL Time Seen by Provider: 12/21/23 06:26 Source: patient Mode of arrival: walk-in Limitations: no limitations History of Present Illness HPI narrative: 78-year-old female presents for abdominal pain. She points to the midline low abdomen. It started 2 days ago. 3 days ago she had an injection into her bladder for an overactive bladder. The next day it started and she felt like she had to have a bowel movement. She took senna and had a small bowel movement and then took this senna again and the pain seemed to get worse and she feels like she has to have a bowel movement but cannot do so. No dysuria or hematuria. She does not complain of back pain or fever or vomiting. She states she is also under a great deal of stress. Related Data Home Medications ?Medication ?Instructions ?Recorded ?Confirmed alprazolam 0.5 mg tablet 0.5 mg PO BID 12/03/23 12/21/23 carvedilol 12.5 mg tablet 12.5 mg PO DAILY 12/03/23 12/21/23 hydrocodone 5 mg-acetaminophen 325 1 tab PO Q8H PRN pain 12/03/23 12/21/23 mg tablet hydroxychloroquine 200 mg tablet 200 mg PO DAILY 12/03/23 12/21/23 levothyroxine 100 mcg tablet 100 mcg PO DAILY 12/03/23 12/21/23 trospium 20 mg tablet 20 mg PO Q24H 12/03/23 12/03/23 vibegron 75 mg tablet (Gemtesa) 75 mg PO DAILY 12/03/23 12/21/23 Previous Rx's ?Medication ?Instructions ?Recorded ondansetron 4 mg disintegrating 4 mg PO Q8H PRN nausea and 08/06/23 tablet vomiting 4 days #16 tabs cephalexin 500 mg capsule 500 mg PO Q8H 7 days #21 caps 12/03/23 ondansetron 4 mg disintegrating 4 mg PO Q6H PRN nausea and 12/03/23 tablet vomiting #12 tabs Allergies Allergy/AdvReac Type Severity Reaction Status Date / Time prochlorperazine AdvReac Severe Vomiting Verified 12/21/23 06:19 [From Compazine] Review of Systems ROS Narrative A ten point review of systems is negative except as noted above. PFSH PFSH Social History Smoking status: Never smoker Exam Narrative Exam Narrative: Nurses note and vital signs reviewed and patient is not hypoxic. General: The patient appears in no apparent distress. Skin: Warm, dry, no pallor noted. There is no rash noted. Head: Normocephalic, atraumatic Eye: Normal conjunctiva, no drainage Ears, Nose, Mouth, and Throat: oral mucosa is moist. Nares patent. Cardiovascular: Regular Rate and Rhythm Respiratory: Patient is in no distress, no accessory muscle use, lungs are clear to auscultation, no wheezing, rales or rhonchi Back: non-tender GI: Tenderness present across the lower abdomen Musculoskeletal: The patient has no evidence of calf tenderness, no pitting edema, symmetrical pulses noted bilaterally Neurological: A&O, normal speech Psychiatric: Cooperative, anxious Constitutional Vital Signs, click to edit/add: Last Vital Signs Temp 97.7 F 12/21/23 06:12 Pulse 85 12/21/23 06:12 Resp 16 12/21/23 06:12 BP 162/106 H 12/21/23 06:12 Pulse Ox 97 12/21/23 06:12 O2 Del Method Room Air 12/21/23 06:12 Course Vital Signs Vital signs: Vital Signs Temperature 97.7 F 12/21/23 06:12 Pulse Rate 85 12/21/23 06:12 Respiratory Rate 16 12/21/23 06:12 Blood Pressure 162/106 H 12/21/23 06:12 Pulse Oximetry 97 12/21/23 06:12 Oxygen Delivery Method Room Air 12/21/23 06:12 Temperature 97.7 F 12/21/23 06:12 Pulse Rate 85 12/21/23 06:12 Respiratory Rate 16 12/21/23 06:12 Blood Pressure 162/106 H 12/21/23 06:12 Pulse Oximetry 97 12/21/23 06:12 Oxygen Delivery Method Room Air 12/21/23 06:12 MDM - Abdominal Pain MDM Narrative Medical decision making narrative: Tests are ordered and the patient is signed out to Dr. Matthews. Differential Diagnosis Differential diagnosis: Likely abdominal pain, constipation, diverticulitis, gastroenteritis, pancreatitis and small bowel obstruction Discharge Plan Discharge Patient Disposition: Still a Patient
[2023-12-21 06:55] LABS: Bilirubin Urine NEGATIVE (NEGATIVE); Blood Urine TRACE-I (NEGATIVE); Clarity Urine CLEAR (CLEAR); Color Urine LT. YELLOW (YELLOW); Glucose Urine UA NEGATIVE (NEGATIVE); Ketones Urine NEGATIVE (NEGATIVE); Leukocyte Esterase Urine MODERATE (NEGATIVE); Nitrite Urine NEGATIVE (NEGATIVE); Protein Urine NEGATIVE (NEG/TRACE); Specific Gravity Urine 1.015 (1.005-1.025); Urobilinogen Urine 0.2 EU/dL (0.2-1.0)
[2023-12-21 06:55] LABS: Basophils Absolute Auto 0.1 10^3/uL (0.0-0.1); Basophils Percent Auto 0.6 % (0.2-2.0); Eosinophils Absolute Auto 0.1 10^3/uL (0.0-0.7); Eosinophils Percent Auto 1.4 % (0.9-7.0); Hematocrit 44.8 % (36.0-48.0); Hemoglobin 13.9 g/dL (12.0-16.0); Immature Granulocytes Abs Auto 0.01 10^3/uL (0.00-0.03); Immature Granulocytes Pct Auto 0.1 % (0.0-0.5); Lymphocytes Absolute Auto 2.4 10^3/uL (1.2-3.8); Lymphocytes Percent Auto 30.6 % (20.5-60.0); Mean Corpuscular Hemoglobin 30.3 pg (26.7-34.0); Mean Corpuscular Volume 97.6 fL (81.0-99.0); Monocytes Absolute Auto 0.6 10^3/uL (0.3-0.8); Monocytes Percent Auto 8.2 % (1.7-12.0); Neutrophils Absolute Auto 4.6 10^3/uL (1.4-6.5); Neutrophils Percent Auto 59.1 % (43.0-75.0); Platelet Count 243 10^3/uL (150-450); Red Blood Count 4.59 10^6/uL (4.20-5.40); Red Cell Distribution Width 12.6 % (11.0-15.0); White Blood Count 7.7 10^3/uL (4.0-11.0)
[2023-12-21 07:06] LABS: Anion Gap 10.7; BUN Creatinine Ratio 20.8; Calcium 9.4 mg/dL (8.5-10.1); Carbon Dioxide 30.2 mmol/L (21.0-32.0); Chloride 106 mmol/L (98-107); Estimated GFR (African America 53 (>=60); Estimated GFR (Non-African Ame 43 (>=60); Glucose 104 mg/dL (74-106); Potassium 3.9 mmol/L (3.5-5.1); Sodium 143 mmol/L (136-145)
[2023-12-21 07:07] LABS: Bacteria Urine TRACE #/HPF (NONE SEEN); Mucus Urine TRACE (NONE SEEN); Squamous Epithelial Cell Urine FEW #/LPF (NONE/RARE)
[2023-12-21 07:08] LABS: Cast Seen? NONE SEEN #/LPF (NONE SEEN); Crystals Seen? None Seen #/HPF (None Seen)
--- NOTE | 2023-12-21 07:33 | CT_ITS ---
The [address] [address] Patient Name: SIMA LEY MRN: [id number] date: 1945 Sex: F Assigned Patient Location: ER Current Patient Location: Accession/Order Number: [id number] Exam Date: 12/21/2023 07:18 Report Date: 12/21/2023 08:06 At the request of: ADRIÁN PRIEST Procedure: CT abdomen pelvis w con EXAM: CT abdomen pelvis w con HISTORY: low abd pain COMPARISON: CT abdomen and pelvis 08/06/2023. TECHNIQUE: Following intravenous injection of 75 mL Omnipaque 350 axial soft tissue windows of the abdomen and pelvis were performed with coronal and sagittal reformats. CT dose reduction technique was used including Automated Exposure Control. Findings: ABDOMEN: Right hepatic lobe low-attenuation lesion, too small to characterize. The gallbladder is surgically absent. The spleen, pancreas, and adrenal glands are unremarkable. No renal stones. Left renal low-attenuation lesion, too small to characterize. There is mild right-sided collecting system and ureteral dilatation. No obstructing ureteral stone. Evaluation of the bowel is limited given the absence of oral contrast. There are colonic diverticula. No bowel obstruction. The appendix is not definitely identified. The aorta is normal caliber. Moderate atherosclerotic disease. No enlarged abdominal lymph nodes or free abdominal fluid. Pelvis: There are multiple small stones along the dependent bladder wall. There is gas within the bladder lumen. The uterus is surgically absent. No enlarged pelvic lymph nodes or free pelvic fluid. No aggressive sclerotic or lytic osseous lesions. Grade 1 anterolisthesis of L4 on L5. Mild multilevel degenerative spondylosis. CT/CT abdomen pelvis w con IMPRESSION: 1. There are multiple calculi within the bladder. There is mild right-sided collecting system and ureteral dilatation. Findings may relate to recently passed stone. Obstruction and reflux can have a similar appearance. 2. Gas within the bladder lumen may relate to recent instrumentation. In a setting lacking this history, infection can have a similar appearance. Electronically authenticated by: BRITTANY MERLOS Date: 12/21/2023 08:06
[2023-12-21 07:43] LABS: Alanine Aminotransferase 21 U/L (14-59); Albumin Globulin Ratio 1.1; Albumin Level 3.8 g/dL (3.4-5.0); Alkaline Phosphatase 67 U/L (46-116); Amylase 42 U/L (25-115); Aspartate Amino Transferase 23 U/L (15-37); Bilirubin Direct 0.1 mg/dL (0.0-0.2); Bilirubin Total 0.4 mg/dL (0.2-1.0); Globulin 3.5 g/dL; Total Protein 7.3 g/dL (6.4-8.2)
[2023-12-21 07:51] VITALS: BP 148/98; PULSE 86; O2SAT 98
[2023-12-21 08:40] VITALS: BP 144/87; PULSE 78; O2SAT 98
== END 2023-12-21 08:41 | disposition home or self-care (01) ==
PROVIDERS: Emergency Provider Emergency Medicine; PCP Internal Medicine
DX: N21.0 Calculus in bladder (principal); Z79.899 Other long term (current) drug therapy; Z79.890 Hormone replacement therapy
CPT/HCPCS: 36415; 74177; 80048; 80076; 81001; 82150; 83690; 85025; 99285; Q9967

== ENCOUNTER 2024-01-27 00:20 | Emergency (ER) | payer MEDICARE, MEDICAID, SELFPAY ==
--- OUTSIDE RECORDS SUMMARY | 2024-01-27 00:28 | XMS_ITS | CCD ---
Author Organization [facility] Inform ion Partnership [facility] Care Team Providers Care Hide And Skin Classer Name Role Phone WILIAN, LISET Unavailable Unavailable WILIAN, LISET Unavailable Unavailable SANTANA, ASHUTOSH Unavailable Unavailable SANTANA, ASHUTOSH Unavailable Unavailable Mary Toure Unavailable MD Ashutosh Santana Primary Care Provider MD Rashard Aguilar Attending Provider SANTANA, DR ASHUTOSH Esparza Primary Care Unavailable [...] Care Provider MD Rashard Aguilar Attending Provider [phone] Lidya Almanzar. Primary Care Physician Shayy Garza Unavailable NONE, XXXX Primary Care Physician Unavailab le NO FAMILY, PHYSICIAN Primary Care Provider Unava ilable SUMAN Toure Attending Provider ABIGAIL Garza Attending Provider [phone] PILI VELASCO Referring Unavailable SANTANA, ASHUTOSH E Primary Care Unavailable SUMAN Toure Attending Provider [phone] MD Rashard Aguilar Attending Provider Mary Toure Admitting Unavailable Mayr Toure Attending Unavailable NO FAMILY, PHYSICIAN Primary Care Unavailable Lauren, Rashard Attending Unavailable Ashutosh Santana E Primary Care Unavailable Lauren, Rashard Admitting Unavailable Rashard Aguilar Attending Unavailable Ashutosh Santana E Primary Care Unavailable Haladay, Rashard Admitting Unavailable Garza, Shayy L Admitting Unavailable Garza, Shayy L Attending Unavailable NO FAMILY, PHYSICIAN Primary Care Unavailable Lauren Rashard Attending Unavailable NO FAMILY, PHYSICIAN Primary Care Unavailable Haladay, Rashard Admitting Unavailable Garza, Shayy L Admitting Unavailable Garza, Shayy L Attending Unavailable NO FAMILY, PHYSICIAN Primary Care Unavailable Xochitl PIPER, [facility] Primary Care Provider SHAIKH LEUNG Primary Care Physician [phone] Gem Contreras Attending Unavailable Gem Contreras Attending Unavailable Gem Contreras Attending Unavailable Lidya Almanzar Attending Unavailable Gem Contreras Attending Unavailable Lidya Almanzar Attending Unavailable Lidya Almanzar Attending Unavailable Lidya Almanzar Attending Unavailable NONE, XXXX Referring Unavailable Rahul Salas Attending Unavaila Lidya Valerio Attending Unavailable Lidya Almanzar Attending Unavailable Lidya Almanzar Attending Unavailable NONE, XXXX Referring Unavailable Rahul Salas Attending Unavaila Rahul Dillon Admitting Unavaila Lidya Valerio Referring Unavailable Rahul Salas Attending Unavaila Rahul Dillon Admitting Unavaila ble Rahul Salas Consulting Unavaila Rahul Dillon Attending Unavaila Rahul Dillon Referring Unavaila Rahul Dillon Consulting Unavaila Rahul Dillon Consulting Unavaila Franco Zimmer Admitting Unavailable Fracno SCHERER Attending Unavailable Franco SCHERER Referring Unavailable MARANDA Camelia L Admitting Unavailable NONE, XXXX Referring Unavailable Rahul Salas Attending Unavaila ble Ross, Lidya E. Referring Unavailable Rahul Salas Attending UnavailTonio San Attending Unavaila ble MICHAEL YOUNG Attending Unavailable ROSS, LIDYA E Referring Unavailable ROSS, LIDYA E Primary Care Unavailable HANNAHMICHAEL BERNARD Attending Unavailable ROSS, LIDYA E Referring Unavailable ROSS, LIDYA E Primary Care Unavailable HANNAHKOLTON BERNARDOTHY G Attending Unavailable ROSS, LIDYA E Referring Unavailable ROSS, LIDYA E Primary Care Unavailable ROSS, LIDYA E Primary Care Unavailable YOJANA ROLLINS Attending Unavailable YOJANA ROLLINS Attending Unavailable YOJANA ROLLINS Referring Unavailable ROSS, LIDYA E Primary Care Unavailable HANNAHKOLTON BERNARDOTHY G Attending Unavailable HANNAH MICHAEL G Referring Unavailable ROSS, LIDYA E Primary Care Unavailable SHAIKH LEUNG Attending Unavailable XOCHITL, Attending Unavailable SERA JENSEN Attending Unavailable XOCHITL, Attending Unavailable SHAIKH LEUNG Attending Unavailable JOIE FITZGERALD Attending Unavailable SERA JENSEN Attending Unavailable SERA JENSEN Referring Unavailable SHAIKH LEUNG Attending Unavailable SERA JENSEN Attending Unavailable SERA JENSEN Referring Unavailable Allergies Allergy Classification Reported Allergen(s) Allergy Type Date of Onset Reaction(s) Facility (20 sources) prochlorperazine; 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: [compazine] Drug Allergy 12-12-19 12 AOF, throat swelling, unknown [facility] Repository (10 sources) Ciprofloxacin Drug Allergy 05-15-20 20 rash, Unknown [facility] Other (1 source) Levamisole Drug Allergy [facility] Repository (8 sources) atorvastatin; 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: [atorvastatin] Drug Allergy unknown [facility] (11 sources) Solifenacin; 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: [solifenacin] Drug Allergy 04-04-20 Unknown [facility] (1 source) Ciprofloxacin Drug Allergy 08-17-20 23 [facility] Repository (3 sources) Prochlorperazine; 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: [PROCHLORPERAZINE] Drug Allergy 01-04-20 17 [facility] Repository (1 source) atorvastatin Drug Allergy 08-24-19 24 Other [facility] Healthcare (3 sources) busPIRone; 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: [BUSPIRONE] Drug Allergy 11-17-19 22 Unknown [facility] Healthcare (3 sources) Nitrofurantoin; 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: [NITROFURANTOIN MACROCRYSTAL] Drug Allergy 01-04-20 [facility] Healthcare (1 source) Nitrofurantoin Drug Allergy 10-17-19 17 [facility] Healthcare (1 source) Prochlorperazine Drug Allergy 09-29-19 07 Anaphylaxis, GI intolerance, Other, Swelling, Unknown [facility] Healthcare (2 sources) Ciprofloxacin; 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: [CIPROFLOXACIN HCL] Drug Allergy 01-04-20 [facility] Repository Medications Current Medications Medication Drug Class(es) Dates Sig (Normalized) Sig (Original) acetaminophen 325 mg / HYDROcodone bitartrate 5 mg oral tablet (8 sources) Opioid Agonist Start: 06-22-2023 acetaminophen-hydr ocodone 325 mg-5 mg oral tablet 1 tab(s), Oral, q6hr, 90 tab(s), Refill(s) 0, [facility] #[id number], 167, cm, 06/22/23 15:56:00 EDT, Height/Length Dosing, 75.7, kg, 06/22/23 15:56:00 EDT, Weight Dosing Start Date: 06/22/23 Status: Ordered Start: 05-30-2023 acetaminophen- hydrocodone 325 mg-5 mg oral tablet 1 tab(s), Oral, q6hr, 90 tab(s), Refill(s) 0, [facility] #[id number], 167, cm, 05/30/23 14:35:00 EDT, Height/Length Dosing, 77.1, kg, 05/30/23 14:35:00 EDT, Weight Dosing Start Date: 05/30/23 Status: Ordered Start: 03-10-2023 acetaminophen- hydrocodone 325 mg-5 mg oral tablet 1 tab(s), Oral, q6hr, 90 tab(s), Refill(s) 0, [facility] #[id number], 167, cm, 12/20/22 16:33:00 EDT, Height/Length Dosing, 82, kg, 12/20/22 16:33:00 EDT, Weight Dosing Start Date: 03/10/23 Status: Ordered take 1 tablet by theo th in the morning, then take 1 tablet by mouth in the evening, then take 1 tablet by mouth at bedtime HYDROcodone-acetaminophen (Vest) 5-325 MG tablet Take 1 tablet by [...] anxiety, # 10 tab(s), Refills(s) 0, Pharmacy: [facility] #[id number], 167, cm, 05/25/23 15:36:00 EDT, Height/Length Dosing, 76.6, kg, 05/25/23 15:36:00 EDT, Weight Dosing Start Date: 05/29/23 Status: Ordered Start: 04-25-2023 take 1 tablet by theo th three times daily as needed for anxiety alprazolam 0.5 mg Tab 0.5 mg = 1 tab(s), Oral, TID, PRN for anxiety, # 30 tab(s), Refills(s) 0, Pharmacy: [facility] #[id number], 167, cm, 04/20/23 14:55:00 EDT, Height/Length Dosing, 78.6, kg, 04/20/23 14:55:00 EDT, Weight Dosing Start Date: 04/25/23 Status: Ordered Start: 03-28-2023 take 1 tablet by theo th three times daily as needed for anxiety alprazolam 0.5 mg Tab 0.5 mg = 1 tab(s), Oral, TID, PRN for anxiety, # 30 tab(s), Refills(s) 0, Pharmacy: [facility] #[id number], 167, cm, 03/28/23 13:02:00 EDT, Height/Length Dosing, [...] BID, # 60 tab(s), Refills(s) 3, Pharmacy: [facility] #[id number], 170, cm, 08/15/23 14:27:00 EST, Height/Length Dosing, [...] elías, Rectal, TID, 10 gram, Refill(s) 0, [facility] #[id number], 167, cm, 03/20/23 11:45:00 EDT, Height/Length Dosing, [...] QID, # 60 tab(s), Refills(s) 1, Pharmacy: [facility] #[id number], 167, cm, 06/01/23 14:55:00 EDT, Height/Length Dosing, [...] qAM, # 30 tab(s), Refills(s) 6, Pharmacy: [facility] #[id number], 167, cm, 05/25/23 15:36:00 EDT, Height/Length Dosing, 76.6, kg, 05/25/23 15:36:00 EDT, Weight Dosing Start Date: 05/26/23 Status: Ordered levothyroxine sodium 0.1 mg oral tablet (17 sources) l-Thyroxine Start: 11-30-2022 take 1 tablet by mouth once daily levothyroxine 100 mcg (0.1 mg) Tab 100 mcg = 1 tab(s), Oral, Daily, # 90 tab(s), Refills(s) 3, Pharmacy: [facility] #[id number], 167.4, cm, 11/02/22 15:26:00 EDT, Height/Length Dosing, [...] Daily, # 30 tab(s), Refills(s) 3, Pharmacy: [facility] #[id number], 170, cm, 08/15/23 14:27:00 EST, Height/Length Dosing, [...] day(s), # 21 tab(s), Refills(s) 0, Pharmacy: [facility] #[id number], 167, cm, 04/20/23 14:55:00 EDT, Height/Length Dosing, [...] q8hr, # 10 tab(s), Refills(s) 1, Pharmacy: [facility] #[id number], 167, cm, 06/01/23 14:55:00 EDT, Height/Length Dosing, [...] Status: Ordered PLACARD (12 sources) Start: 05-03-2023 PLACARABELLA PRATHER, See Instructions, 1 EA, 0, expires [...] circumstances] Onset: 4 09-05-2023 Episodic Anxiety disorders (19 sources) Anxiety; 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: [Mixed anxiety and depressive disorder] Onset: 4 11-01-2022 Chronic Calculus of urinary tract (7 sources) Urinary bladder stone 12-20-2022 Episodic Coronary atherosclerosis and other heart disease (8 sources) Coronary arteriosclerosis; 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: [Atherosclerotic heart disease of samish coronary artery without angina pectoris] Onset: 4 04-17-2023 Chronic Deficiency and other anemia (7 sources) Anemia 11-01-2022 Episodic Disorders of lipid metabolism (8 sources) Pure hypercholesterolemia; 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: [Hyperlipidemia] Onset: 4 11-01-2022 Chronic Esophageal disorders (1 source) Gastroesophageal reflux disease; 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: [Gastro-esophageal reflux disease without esophagitis] Onset: 4 09-05-2023 Chronic Essential hypertension (8 sources) Essential hypertension; 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: [Hypertensive disorder] Onset: 4 11-01-2022 Chronic Genitourinary congenital anomalies (2 sources) Congenital hydronephrosis; 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] Onset: 4 Chronic Genitourinary symptoms and ill-defined conditions (1 [...] sources) Irritable bowel syndrome 11-01-2022 Chronic Other gastrointestinal disorders (1 source) Constipation, unspecified; 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: [Constipation, unspecified] Onset: 4 Episodic Other gastrointestinal disorders (2 sources) Constipation Onset: 4 Episodic Other injuries and conditions due to external [...] Test Name Value Interpretation Reference Range Facility US RETROPERITONEAL COMPLETEo n 01-18-2024 US RETROPERITONEAL COMPLETE US RETROPERITONEAL COMPLETE EXAM: Complete retroperitoneal ultrasound HISTORY: Primary hydronephrosis on the right side.. COMPARISON: Abdomen and pelvis CT from 12/11/2022. TECHNIQUE: Transabdominal sonography was performed of the kidneys. FINDINGS: The right kidney measures 9.4 x 4.0 x 5.6 cm cm. Left kidney 8.9 x 4.2 x 3.9 cm. The kidneys are normal in size and echogenicity. There is no evidence of mass, dilated collecting structures, shadowing stones, or perinephric fluid collection. Right renal cortex and left renal cortex is 6 mm in thickness Bladder appears grossly unremarkable. Urinary bladder measures 6.7 x 6.5 x 7.3 cm and total bladder volume is 223 mL. Post voiding residual measurements decreased to 6.8 x 4.5 x 5.8 cm for total post voiding residual volume of 93.6 mL. Bilateral ureteral jets are visualized. IMPRESSION: Unremarkable renal ultrasound. No definite hydronephrosis Unremarkable urinary bladder with significant postvoiding residual volume of 93.6 mL. Finalized by Katarina Son MD on 01/17/2024 10:54 PM [facility] XR ABDOM COMP SERIES W PA CH ESTon 01-13-2024 XR ABDOM COMP SERIES W PA CHEST XR ABDOM COMP SERIES W PA CHEST HISTORY: A 78-year-old female with the history of the constipation. EXAM/TECHNIQUE: An acute abdominal series including PA view of chest: 3 views COMPARISON: Comparison is made with the upright AP view of abdomen of 04/03/2022. FINDINGS: PA view of chest reveals clear lung street and costophrenic angles. There is evidence of median thoracotomy. The mediastinum is otherwise unremarkable. The trachea is in midline. The hemidiaphragms are normal in position and contour. Supine and erect abdominal images reveal unremarkable bowel gas pattern. Moderate amount of feces is seen in the colon. There is no evidence of multiple air-fluid levels or free intraperitoneal air. There is no evidence of large soft tissue mass. There are diffuse degenerative changes in the thoracolumbar spine. IMPRESSION: 1. Nonobstructive bowel gas pattern with moderate amount of feces. 2. No evidence of multiple air-fluid levels or free intraperitoneal air. 3. No evidence of an acute intra-abdominal or pulmonary pathology. Finalized by Rigoberto Cadet MD on 01/13/2024 5:53 AM Normal [facility] Heart and Vascular Office/[facility] Noteon 12-05-2023 Heart and Vascular Office/Clinic Note History of Present Illness Tea Rahman is a 78-year-old female who presents today for a follow-up visit. Her eldest daughter and an adult male accompanied her during the visit. The patient reports significant improvement of health condition. She had shingles for which she consulted with Dr. Leung of internal medicine at [place]. This condition caused back myalgia, and she had a challenging period. She notes a significant improvement from shingles despite a gradual recovery. Her shingles resulted in bladder and bowel issues, which have been her most distressing problems and are currently her primary concerns. She is scheduled for a follow-up appointment with a specialist in [place] in 11/2023 to address her bladder issues. [...] mmHg. 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 She experiences episodes of depression, though these are improving. She has resumed taking Xanax. Her younger daughter facilitated a consultation with a psychiatrist in [place], who manages her Xanax regimen. The psychiatrist [...] with voice recognition artificial intelligence software, specifically [employer], [employer] and or [employer]. Substitutions may have occurred due to the inherent limitations of voice recognition and artificial intelligence software. Documentation services were performed after patient or guardian consented to allow [employer] to record this visit. DARVIN security management specialist and provider reviewed before signing. DARVIN: Andrea Gonzalez Follow-up No qualifying data available Problem List/Past Medical History Ongoing Adjustment disorder with anxious mood Anemia Anxiety Atherosclerosis aorta Bladder stone BMI 29.0-29.9,adult CAD in samish artery Complex posttraumatic stress disorder Disorder of vitami (more content not included)... Normal [facility] Comment on above: Result Comment: Elec tronically Signed By: Portillo PIPER, Rahul Varner\.br\Date and Time Signed: 12/05/23 06:20 EDT\.br\Electronically Co-Signed By: Andrea Gonzalez\.br\Date and Time Co-Signed: 11/13/23 14:21 EDT Consent for Treatmenton 10-20 Consent for Treatment [id number] 0TIFF [facility] Physician Orderon 11-13-2023 Physician Order [id number]. 00TIFF [facility] Amorphous urine sedimentOrde red By: Rashard Aguilar on 09-12-2023 Amorphous sediment LM Ql (Urine sed) See comment Negative [facility] Comment on above: Unable to obtain acc urate result due to color interference. Automated epithelial cells c ount in urine sediment (number/area)Ordered By: Rashard Aguilar on 09-12-2023 Epithelial cells Auto (Urine sed) [#/Area] 5-9 [HPF] 0-2 [facility] Automated erythrocytes count in urine sediment (number/area)Ordered By: Rashard Aguilar on 09-12-2023 RBC Auto (Urine sed) [#/Area] 3-4 [HPF] 0-4 [facility] Automated leukocytes count i n urine sediment (number/area)Ordered By: Rashard Aguilar on 09-12-2023 WBC Auto (Urine sed) [#/Area] 50-100 [HPF] 0-4 [facility] Automated urine hyaline cast s count (number/volume)Ordered By: Rashard Aguilar on 09-12-2023 Hyaline casts Auto (U) [#/Vol] 0-1 [LPF] 0-1 [facility] Automated urine specific gra vity by refractometryOrdered By: Rashard Aguilar on 09-12-2023 Specific gravity Refractometry automated (U) [Rel density] 1.028 1.001-1.030 [facility] Basophils Auto (Bld) [#/Vol] Ordered By: Rashard Roblesmiller on 09-12-2023 Basophils (Bld) [#/Vol] 0.0 10*3/uL 0.0-0.2 [facility] Basophils/100 WBC Auto (Bld) Ordered By: Rashard Aguilar on 09-12-2023 Basophils/100 WBC (Bld) 0.8 % . [facility] Bilirubin Auto test strip Ql (U)Ordered By: Rashard Aguilar on 09-12-2023 Bilirubin Ql (U) See comment Negative [facility] Comment on above: Unable to obtain acc urate result due to color interference. C reactive protein [Mass/vol ume] in Serum or PlasmaOrdered By: Rashard Aguilar on 09-12-2023 CRP [Mass/Vol] 0.6 mg/dL 0.0-0.5 [facility] C-Reactive Proteinon 024 C-Reactive Protein 0.6 mg/dL High 0.0-0.5 [facility] Comment on above: Result Comment: PERF ORMED BY: [place] [address] PATHOLOGIST FIELD TRAINING AGENT KEYON SERNA M.D. Performed By: #### C BC, ADDONUAPLUS, ESR, CUU, CRP, CREAT #### [place] [address] [place] #### C4, C3 #### [facility] , Complement C3on 09-12-2023 Complement C3 155 mg/dL Normal 82-167 [facility] Comment on above: Result Comment: Perf ormed at: - [facility] [address] [id number] Security Developer: Paul Dumont PhD, Phone: [phone] Performed By: #### C BC, ADDONUAPLUS, ESR, CUU, CRP, CREAT #### [address] #### C4, C3 #### [facility] , Complement C4on 09-12-2023 Complement C4 34 mg/dL Normal 12-38 [facility] Comment on above: Result Comment: PERF ORMED BY: [place] [address] PATHOLOGIST FIELD TRAINING AGENT KEYON SERNA M.D. Performed By: #### C BC, ADDONUAPLUS, ESR, CUU, CRP, CREAT #### [address] #### C4, C3 #### [facility] , Complete Blood Count Auto Di ffon 09-12-2023 Basophils (Bld) [#/Vol] 0.0 10*3/uL Normal 0.0-0.2 [facility] Comment on above: Performed By: #### C BC, ADDONUAPLUS, ESR, CUU, CRP, CREAT #### [place] [address] [place] #### C4, C3 #### [facility] , Basophils/100 WBC (Bld) 0.8 % Normal . [facility] Comment on above: Performed By: #### C BC, ADDONUAPLUS, ESR, CUU, CRP, CREAT #### [place] [address] [place] #### C4, C3 #### [facility] , Eosinophils (Bld) [#/Vol] 0.2 10*3/uL Normal 0.0-0.45 [facility] Comment on above: Performed By: #### C BC, ADDONUAPLUS, ESR, CUU, CRP, CREAT #### [place] [address] [place] #### C4, C3 #### [facility] , Eosinophils/100 WBC (Bld) 4.0 % Normal . [facility] Comment on above: Performed By: #### C BC, ADDONUAPLUS, ESR, CUU, CRP, CREAT #### [address] #### C4, C3 #### [facility] , Erythrocyte distribution width (RBC) [Ratio] 14.3 % Normal 11.9-15.3 [facility] Comment on above: Performed By: #### C BC, ADDONUAPLUS, ESR, CUU, CRP, CREAT #### [address] #### C4, C3 #### [facility] , Hematocrit (Bld) [Volume fraction] 39.2 % Normal 34.0-46.4 [facility] Comment on above: Performed By: #### C BC, ADDONUAPLUS, ESR, CUU, CRP, CREAT #### [address] #### C4, C3 #### [facility] , Hemoglobin (Bld) [Mass/Vol] 12.9 g/dL Normal 11.8-15.4 [facility] Comment on above: Performed By: #### C BC, ADDONUAPLUS, ESR, CUU, CRP, CREAT #### [place] [address] [place] #### C4, C3 #### [facility] , Lymphocytes (Bld) [#/Vol] 1.8 10*3/uL Normal 1.00-4.8 [facility] Comment on above: Performed By: #### C BC, ADDONUAPLUS, ESR, CUU, CRP, CREAT #### [place] [address] [place] #### C4, C3 #### [facility] , Lymphocytes/100 WBC (Bld) 31.9 % Normal . [facility] Comment on above: Performed By: #### C BC, ADDONUAPLUS, ESR, CUU, CRP, CREAT #### [place] [address] [place] #### C4, C3 #### [facility] , MCH (RBC) [Entitic mass] 31.1 pg Normal 24.7-34.3 [facility] Comment on above: Performed By: #### C BC, ADDONUAPLUS, ESR, CUU, CRP, CREAT #### [place] [address] [place] #### C4, C3 #### [facility] , MCV (RBC) [Entitic vol] 94.4 fL Normal 80-100 [facility] Comment on above: Performed By: #### C BC, ADDONUAPLUS, ESR, CUU, CRP, CREAT #### [place] [address] [place] #### C4, C3 #### [facility] , Mean Corpuscular HGB Conc 33.0 g/dL Normal 32.0-35.0 [facility] Comment on above: Performed By: #### C BC, ADDONUAPLUS, ESR, CUU, CRP, CREAT #### [place] [address] [place] #### C4, C3 #### [facility] , Monocytes (Bld) [#/Vol] 0.5 10*3/uL Normal 0.0-0.8 [facility] Comment on above: Performed By: #### C BC, ADDONUAPLUS, ESR, CUU, CRP, CREAT #### [place] [address] [place] #### C4, C3 #### [facility] , Monocytes/100 WBC (Bld) 8.5 % Normal . [facility] Comment on above: Performed By: #### C BC, ADDONUAPLUS, ESR, CUU, CRP, CREAT #### [facility] [address] [place] [address] [place] #### C4, C3 #### [facility] , Neutrophils (Bld) [#/Vol] 3.1 10*3/uL Normal 1.8-7.7 [facility] Comment on above: Performed By: #### C BC, ADDONUAPLUS, ESR, CUU, CRP, CREAT #### [address] #### C4, C3 #### [facility] , Neutrophils/100 WBC (Bld) 54.8 % Normal . [facility] Comment on above: Performed By: #### C BC, ADDONUAPLUS, ESR, CUU, CRP, CREAT #### [place] [address] [place] #### C4, C3 #### [facility] , NRBC% 0.2 /100{WBC} Normal 0-0.5 [facility] Comment on above: Performed By: #### C BC, ADDONUAPLUS, ESR, CUU, CRP, CREAT #### [place] [address] [place] #### C4, C3 #### [facility] , Platelet mean volume (Bld) [Entitic vol] 7.6 fL Normal 6.3-10.7 [facility] Comment on above: Performed By: #### C BC, ADDONUAPLUS, ESR, CUU, CRP, CREAT #### [place] [address] [place] #### C4, C3 #### [facility] , Platelets (Bld) [#/Vol] 263 10*3/uL Normal 150-450 [facility] Comment on above: Performed By: #### C BC, ADDONUAPLUS, ESR, CUU, CRP, CREAT #### [facility] [address] [place] [address] #### C4, C3 #### [facility] , RBC (Bld) [#/Vol] 4.16 10*6/uL Normal 3.60-5.00 [facility] Comment on above: Performed By: #### C BC, ADDONUAPLUS, ESR, CUU, CRP, CREAT #### [facility] [address] [place] [address] #### C4, C3 #### [facility] , WBC (Bld) [#/Vol] 5.7 10*3/uL Normal 3.8-11.6 [facility] Comment on above: Performed By: #### C BC, ADDONUAPLUS, ESR, CUU, CRP, CREAT #### [facility] [address] [place] [address] [place] #### C4, C3 #### [facility] , Creatinineon 09-12-2023 Creatinine [Mass/Vol] 0.92 mg/dL Normal 0.60-1.20 [facility] Comment on above: Performed By: #### C BC, ADDONUAPLUS, ESR, CUU, CRP, CREAT #### [facility] [address] [place] [address] [place] #### C4, C3 #### [facility] , GFR/1.73 sq M.predicted MDRD (S/P/Bld) [Vol rate/Area] mL/min/{1.73_m2} [facility] Comment on above: Performed By: #### C BC, ADDONUAPLUS, ESR, CUU, CRP, CREAT #### [facility] [address] [place] [address] [place] #### C4, C3 #### [facility] , Creatinine [Mass/volume] in Serum or PlasmaOrdered By: Rashard Aguilar on 09-12-2023 Creatinine [Mass/Vol] 0.92 mg/dL 0.60-1.20 [facility] Dipstick and Microscopicon 0 09-12-2023 Appearance (U) Slightly Cloudy Critically abnormal Clear [facility] Comment on above: Order Comment: Name Collection Type:: Clean-Voided Midstream Performed By: #### C BC, ADDONUAPLUS, ESR, CUU, CRP, CREAT #### [facility] [address] [place] [address] #### C4, C3 #### [facility] , Bacteria,Urine 2+ High None Seen [facility] Comment on above: Order Comment: Name Collection Type:: Clean-Voided Midstream Performed By: #### C BC, ADDONUAPLUS, ESR, CUU, CRP, CREAT #### [address] #### C4, C3 #### [facility] , Bilirubin,Urine Normal Negative [facility] Comment on above: Order Comment: Name Collection Type:: Clean-Voided Midstream Result Comment: Unab le to obtain accurate result due to color interference. Performed By: #### C BC, ADDONUAPLUS, ESR, CUU, CRP, CREAT #### [facility] [address] [place] [address] [place] #### C4, C3 #### [facility] , Color (U) Sebastian Critically abnormal Yellow [facility] Comment on above: Order Comment: Name Collection Type:: Clean-Voided Midstream Performed By: #### C BC, ADDONUAPLUS, ESR, CUU, CRP, CREAT #### [facility] [address] [place] [address] [place] #### C4, C3 #### [facility] , Glucose Ql (U) Normal Normal [facility] Comment on above: Order Comment: Name Collection Type:: Clean-Voided Midstream Result Comment: Unab le to obtain accurate result due to color interference. Performed By: #### C BC, ADDONUAPLUS, ESR, CUU, CRP, CREAT #### [address] #### C4, C3 #### [facility] , Hyaline Casts,Urine 0-1 Normal 0-1 [facility] [place] Comment on above: Order Comment: Name Collection Type:: Clean-Voided Midstream Performed By: #### C BC, ADDONUAPLUS, ESR, CUU, CRP, CREAT #### [address] #### C4, C3 #### [facility] , Ketones Ql (U) Normal Negative [facility] Comment on above: Order Comment: Name Collection Type:: Clean-Voided Midstream Result Comment: Unab le to obtain accurate result due to color interference. Performed By: #### C BC, ADDONUAPLUS, ESR, CUU, CRP, CREAT #### [place] [address] [place] #### C4, C3 #### [facility] , Leukocyte esterase Test strip Ql (U) Normal Negative [facility] Comment on above: Order Comment: Name Collection Type:: Clean-Voided Midstream Result Comment: Unab le to obtain accurate result due to color interference. Performed By: #### C BC, ADDONUAPLUS, ESR, CUU, CRP, CREAT #### [place] [address] [place] #### C4, C3 #### [facility] , Nitrite,Urine Normal Negative [facility] Comment on above: Order Comment: Name Collection Type:: Clean-Voided Midstream Result Comment: Unab le to obtain accurate result due to color interference. Performed By: #### C BC, ADDONUAPLUS, ESR, CUU, CRP, CREAT #### [place] [address] [place] #### C4, C3 #### [facility] , Occult Blood,Urine Normal Negative [facility] Comment on above: Order Comment: Name Collection Type:: Clean-Voided Midstream Result Comment: Unab le to obtain accurate result due to color interference. Performed By: #### C BC, ADDONUAPLUS, ESR, CUU, CRP, CREAT #### [address] #### C4, C3 #### [facility] , pH,Urine Normal 5.0-9.0 [facility] Comment on above: Order Comment: Name Collection Type:: Clean-Voided Midstream Result Comment: Unab le to obtain accurate result due to color interference. Performed By: #### C BC, ADDONUAPLUS, ESR, CUU, CRP, CREAT #### [address] #### C4, C3 #### [facility] , Protein,Urine Normal Negative [facility] Comment on above: Order Comment: Name Collection Type:: Clean-Voided Midstream Result Comment: Unab le to obtain accurate result due to color interference. Performed By: #### C BC, ADDONUAPLUS, ESR, CUU, CRP, CREAT #### [place] [address] [place] #### C4, C3 #### [facility] , RBC,Urine 3-4 Normal 0-4 [facility] Comment on above: Order Comment: Name Collection Type:: Clean-Voided Midstream Performed By: #### C BC, ADDONUAPLUS, ESR, CUU, CRP, CREAT #### [place] [address] [place] #### C4, C3 #### [facility] , Specificy [place],Urine 1.028 Normal 1.001-1.030 [facility] Comment on above: Order Comment: Name Collection Type:: Clean-Voided Midstream Performed By: #### C BC, ADDONUAPLUS, ESR, CUU, CRP, CREAT #### [address] #### C4, C3 #### [facility] , Squamous Epithelial Cell,Urine 5-9 High 0-2 [facility] Comment on above: Order Comment: Name Collection Type:: Clean-Voided Midstream Performed By: #### C BC, ADDONUAPLUS, ESR, CUU, CRP, CREAT #### [address] #### C4, C3 #### [facility] , Urobilinogen,Urine Normal Normal [facility] Comment on above: Order Comment: Name Collection Type:: Clean-Voided Midstream Result Comment: Unab le to obtain accurate result due to color interference. Performed By: #### C BC, ADDONUAPLUS, ESR, CUU, CRP, CREAT #### [address] #### C4, C3 #### [facility] , WBC,Urine 50-100 High 0-4 [facility] Comment on above: Order Comment: Name Collection Type:: Clean-Voided Midstream Performed By: #### C BC, ADDONUAPLUS, ESR, CUU, CRP, CREAT #### [address] #### C4, C3 #### [facility] , Yeast,Urine Rare Critically abnormal None Seen [facility] Comment on above: Order Comment: Name Collection Type:: Clean-Voided Midstream Result Comment: PERF ORMED BY: [place] [address] PATHOLOGIST FIELD TRAINING AGENT KEYON SERNA M.D. Performed By: #### C BC, ADDONUAPLUS, ESR, CUU, CRP, CREAT #### [address] [place] [address] [place] #### C4, C3 #### [facility] , Eosinophils Auto (Bld) [#/Vo l]Ordered By: Rashard Aguilar on 09-12-2023 Eosinophils (Bld) [#/Vol] 0.2 10*3/uL 0.0-0.45 [facility] Eosinophils/100 WBC Auto (Bl d)Ordered By: Rashard Aguilar on 09-12-2023 Eosinophils/100 WBC (Bld) 4.0 % . [facility] Erythrocyte Sedimentation Ra duyen 09-12-2023 ESR (Bld) [Velocity] 23 mm/h Normal 0-29 [facility] Comment on above: Result Comment: PERF ORMED BY: [place] [address] PATHOLOGIST FIELD TRAINING AGENT KEYON SERNA M.D. Performed By: #### C BC, ADDONUAPLUS, ESR, CUU, CRP, CREAT #### [facility] [address] [place] [address] #### C4, C3 #### [facility] , Erythrocyte distribution wid th Auto (RBC) [Ratio]Ordered By: Rashard Aguilar on 09-12-2023 Erythrocyte distribution width (RBC) [Ratio] 14.3 % 11.9-15.3 [facility] Erythrocyte sedimentation ra te by Photometric methodOrdered By: Rashard Aguilar on 09-12-2023 ESR Photometric method (Bld) [Velocity] 23 mm/hr 0-29 [facility] Hematocrit Auto (Bld) [Volum e fraction]Ordered By: Rashard Aguilar on 09-12-2023 Hematocrit (Bld) [Volume fraction] 39.2 % 34.0-46.4 [facility] Hemoglobin [Mass/volume] in BloodOrdered By: Rashard Aguilar on 09-12-2023 Hemoglobin (Bld) [Mass/Vol] 12.9 g/dL 11.8-15.4 [facility] Ketones Test strip (U) [Mass /Vol]Ordered By: Rashard Aguilar on 09-12-2023 Ketones (U) [Mass/Vol] See comment Negative [facility] Comment on above: Unable to obtain acc urate result due to color interference. Leukocytes [#/volume] correc edwige for nucleated erythrocytes in Blood by Automated counOrdered By: Rashard Aguilar on 09-12-2023 WBC corrected for nucl RBC Auto (Bld) [#/Vol] 5.7 10*3/uL 3.8-11.6 [facility] Lymphocytes Auto (Bld) [#/Vo l]Ordered By: Rashard Aguilar on 09-12-2023 Lymphocytes (Bld) [#/Vol] 1.8 10*3/uL 1.00-4.8 [facility] Lymphocytes/100 WBC Auto (Bl d)Ordered By: Rashard Aguilar on 09-12-2023 Lymphocytes/100 WBC (Bld) 31.9 % . [facility] MCH Auto (RBC) [Entitic mass ]Ordered By: Rashard Aguilar on 09-12-2023 MCH (RBC) [Entitic mass] 31.1 pg 24.7-34.3 [facility] MCHC Auto (RBC) [Mass/Vol]Or dered By: Rashard Aguilar on 09-12-2023 MCHC (RBC) [Mass/Vol] 33.0 g/dL 32.0-35.0 [facility] [place] [facility] MCV Auto (RBC) [Entitic vol] Ordered By: Rashard Aguilar on 09-12-2023 MCV (RBC) [Entitic vol] 94.4 fL 80-100 [facility] Monocytes Auto (Bld) [#/Vol] Ordered By: Rashard Aguilar on 09-12-2023 Monocytes (Bld) [#/Vol] 0.5 10*3/uL 0.0-0.8 [facility] Monocytes/100 WBC Auto (Bld) Ordered By: Rashard Aguilar on 09-12-2023 Monocytes/100 WBC (Bld) 8.5 % . [facility] Neutrophils Auto (Bld) [#/Vo l]Ordered By: Rashard Aguilar on 09-12-2023 Neutrophils (Bld) [#/Vol] 3.1 10*3/uL 1.8-7.7 [facility] Neutrophils/100 WBC Auto (Bl d)Ordered By: Rashard Aguilar on 09-12-2023 Neutrophils/100 WBC (Bld) 54.8 % . [facility] No Panel InformationOrdered By: Rashard Aguilar on 09-12-2023 Estimated GFR (CKD-EPI) > 60.0 mL/Min [facility] Creatinine Clearance (Chem N/A [facility] Nucleated erythrocytes [Pres ence] in Blood by Automated countOrdered By: Rashard Aguilar on 09-12-2023 Nucleated RBC Auto Ql (Bld) 0.2 /100{WBC} 0-0.5 [facility] Platelet mean volume Auto (B ld) [Entitic vol]Ordered By: Rashard Aguilar on 09-12-2023 Platelet mean volume (Bld) [Entitic vol] 7.6 fL 6.3-10.7 [facility] Platelets Auto (Bld) [#/Vol] Ordered By: Rashard Aguilar on 09-12-2023 Platelets (Bld) [#/Vol] 263 10*3/uL 150-450 [facility] Protein Auto test strip (U) [Mass/Vol]Ordered By: Rashard Aguilar on 09-12-2023 Protein (U) [Mass/Vol] See comment Negative [facility] Comment on above: Unable to obtain acc urate result due to color interference. RBC Auto (Bld) [#/Vol]Ordere d By: Rashard Aguilar on 09-12-2023 RBC (Bld) [#/Vol] 4.16 10*6/uL 3.60-5.00 [facility] [place] Urine Cultureon 09-12-2023 Bacteria identified Cx Nom (U) <9,000 colonies/ml mixed bacterial skin contaminants 2 Days PERFORMED BY: [place] [address] PATHOLOGIST FIELD TRAINING AGENT KEYON SERNA M.D. Normal [facility] Comment on above: Performed By: #### C BC, ADDONUAPLUS, ESR, CUU, CRP, CREAT #### [facility] [address] [place] [address] [place] #### C4, C3 #### [facility] , Urine appearanceOrdered By: Rashard Aguilar on 09-12-2023 Appearance (U) Slightly cloudy Clear [facility] [place] Urine bacteria detection by automated methodOrdered By: Rashard Aguilar on 09-12-2023 Bacteria Auto Ql (U) 2+ None Seen [facility] Urine colorOrdered By: Arthur Aguilar on 09-12-2023 Color (U) Sebastian Yellow [facility] Urine glucose measurement by automated test strip (mass/volume)Ordered By: Rashard Aguilar on 09-12-2023 Glucose Auto test strip (U) [Mass/Vol] See comment Normal [facility] Comment on above: Unable to obtain acc urate result due to color interference. Urine leukocyte esterase det ection by automated test stripOrdered By: Rashard Aguilar on 09-12-2023 Leukocyte esterase Auto test strip Ql (U) See comment Negative [facility] Comment on above: Unable to obtain acc urate result due to color interference. Urine nitrite detection by a utomated test stripOrdered By: Rashard Aguilar on 09-12-2023 Nitrite Auto test strip Ql (U) See comment Negative [facility] Comment on above: Unable to obtain acc urate result due to color interference. Urobilinogen Test strip (U) [Mass/Vol]Ordered By: Rashard Aguilar on 09-12-2023 Urobilinogen (U) [Mass/Vol] See comment Normal [facility] Comment on above: Unable to obtain acc urate result due to color interference. 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 Heart disease: Mother and Father. Normal [facility] Comment on above: Result Comment: Elec [...] treating with medication prescribed by her now-retired heel gouger. She only started the medication after her heart attack and never exceeds the recommended dose. She visited [facility] due to elevated blood pressure and [...] has been treated by several doctors at [place]'s emergency room. Her nervous system has been [...] with voice recognition artificial intelligence software, specifically [employer], [employer] and or [employer]. Substitutions may have occurred with voice recognition and artificial intelligence software. ATTESTATION: Documentation services were performed after patient or guardian consented to allow [employer] to record this visit. DARVIN security management specialist and provider reviewed before signing. DARVIN: Padmini Cook. 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 Normal [facility] Comment on above: Result Comment: Elec tronically Signed By: Portillo PIPER, Rahul Varner\.br\Date and Time Signed: 08/27/23 20:52 EST\.br\Electronically Co-Signed By: Padmini Cook\Date and Time Co-Signed: 08/15/23 16:49 EST URINE CULTURE, ROUTINEon Bacteria identified Cx Nom (U) No growth at 48 hours Normal [facility] Comment on above: Performed By: #### L [id number] #### [facility] [address] [place] [address] Urinalysis - AUTOMATEDon Appearance (U) clear [employer] Other Bilirubin Ql (U) Negative [employer] Other Color (U) orange [employer] Other Glucose Ql (U) 100 [employer] Other Hemoglobin Ql (U) small [employer] Other Ketones Ql (U) Negative [employer] Other Leukocyte esterase Test strip Ql (U) large [employer] Other Nitrite Ql (U) Positive [employer] Other pH (U) 5.0 [pH] [employer] Other Protein Ql (U) 100 [employer] Other Specific gravity (U) [Rel density] 1.010 [employer] Other Urobilinogen (U) [Mass/Vol] 1.0 mg/dL [employer] Other Urinalysis - AUTOMATED No rt [employer] Other Urine Cultureon 08-17-2023 Bacteria identified Cx Nom (U) <9,000 colonies/ml mixed bacterial skin contaminants 2 Days PERFORMED BY: [facility] [address] [place] [address] PATHOLOGIST FIELD TRAINING AGENT KEYON SERNA M.D. Normal [facility] Comment on above: Performed By: #### C BC, ADDONUAPLUS, ESR, CUU, CRP, CREAT #### [facility] [address] #### C4, C3 #### [facility] , Bacteria identified Cx Nom (U) [employer] Other Urine culture routineOrdered By: Shayy Garza on 08-17-2023 Bacteria identified Cx Nom (U) 2 Days [facility] Physician Orderon 08-16-2023 Physician Order [id number]#1.0 0TIFF Normal [facility] Ambulatory Visit Summaryon 1 10-16-2022 [...] 11:00 AM EST With: [place] Where: [facility] Monday 12:15 PM EDT With: Portillo [...] aorta Bladder stone BMI 29.0-29.9,adult 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 Normal [facility] Urinalysis - AUTOMATEDon Appearance (U) clear [employer] Other Bilirubin Ql (U) Negative [employer] Other Color (U) bright orange [employer] Other Glucose Ql (U) Negative [employer] Other Hemoglobin Ql (U) Negative [employer] Other Ketones Ql (U) Negative [employer] Other Leukocyte esterase Test strip Ql (U) small [employer] Other Nitrite Ql (U) Positive [employer] Other pH (U) 6.0 [pH] [employer] Other Protein Ql (U) Negative [employer] Other Specific gravity (U) [Rel density] >1.010 [employer] Other Urobilinogen (U) [Mass/Vol] 0.2 mg/dL [employer] Other Urinalysis - AUTOMATED No rt [employer] Other Urine Cultureon 08-01-2023 Bacteria identified Cx Nom (U) Reason for Exam Dysuria Urine Reason for Exam: Dysuria : Urine No Growth 2 Days PERFORMED BY: [facility] [address] [place] [address] PATHOLOGIST FIELD TRAINING AGENT KEYON SERNA M.D. Normal [facility] Comment on above: Performed By: #### C BC, ADDONUAPLUS, ESR, CUU, CRP, CREAT #### [facility] [address] [place] [address] [place] #### C4, C3 #### [facility] , Bacteria identified Cx Nom (U) [employer] Other Urine culture routineOrdered By: Mary Toure on 08-01-2023 Bacteria identified Cx Nom (U) No Growth 2 Days [facility] Outside Recordson 07-27-2023 Outside Records [id number]#1.0 0TIFF Normal [facility] Consultation Noteon 07-25-20 Consultation Note [id number]#1.0 0TIFF Normal [facility] ED Note-Physicianon 07-19-20 ED Note-Physician [id number]#1.0 0TIFF Normal [facility] RAD - MISCon 07-19-2023 RAD - MISC [id number]#1.0 0TIFF Normal [facility] Heart and Vascular Office/Cl inic Noteon [...] with voice recognition artificial intelligence software, specifically [employer], [employer] and or [employer]. Substitutions may have occurred due to the inherent limitations of voice recognition and artificial intelligence software. ATTESTATION: Documentation services were performed after the patient or guardian consented to allow [employer] to record this visit. DARVIN security management specialist and provider reviewed before signing. 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 Normal [facility] Comment on above: Result Comment: Elec tronically Signed By: Portillo PIPER, Rahul Varner\.br\Date and Time Signed: 07/15/23 13:28 EST\.br\Electronically Co-Signed By: Veronica Fleming\.br\Date and Time Co-Signed: 06/01/23 16:35 EDT Heart and Vascular Office/Clinic Note Chief Complaint here for test results History of Present Illness Tea Rahamn is a 77-year-old female presents today for a laboratory result review. The patient's stress test and echocardiogram were within normal limits. She has been feeling back and forth and is unsure what is causing her symptoms. She has a history of lupus and has been very agitated due to her insurance companies. Her urologist is at [facility] in [place], [place], and they were having problems with [...] with voice recognition artificial intelligence software, specifically [employer], [employer] and or [employer]. Substitutions may have occurred with voice recognition and artificial intelligence software. ATTESTATION: Documentation services were performed after patient or guardian consented to allow [employer] to record this visit. DARVIN security management specialist and provider reviewed before signing. DARVIN: Ruben Bernal. 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 [facility] Comment on above: Result Comment: Elec tronically Signed By: Portillo PIPER, Rahul Varner\.br\Date and Time Signed: 07/15/23 12:13 EST\.br\Electronically Co-Signed By: Ruben Bernal\.br\Date and Time Co-Signed: 05/26/23 12:49 EDT Consultation Noteon 07-06-20 Consultation Note [id number]#1.00 TIFF [facility] Consultation Noteon 07-03-20 Consultation Note [id number] 0TIFF [facility] Family Medicine Office/Clini c Noteon 06-27-2023 [...] it. She voiced her dissatisfaction with her heel gouger, having seen many but not finding one who would truly listen to her. She mentioned that one of them would just take blood samples every visit, making it difficult for her to communicate with him. She informed this heel gouger about a blood test for her bladder that revealed 100 stones, but he dismissed it. However, he later acknowledged that it did indeed occur. She expressed her desire to seek a different heel gouger due to these experiences. She states that [...] tender (c (more content not included)... Normal [facility] Comment on above: Result Comment: Elec tronically Signed By: Lidya Almanzar MD\.br\Date and Time Signed: 06/27/23 08:27 EST\.br\Electronically Co-Signed By: Lucia Ramos\.br\Date and Time Co-Signed: 06/22/23 20:26 EDT Behavioral Health Sensitive Noteon 06-26-2023 Behavioral Health Sensitive Note Spoke with patient and she has decided to switch primary care physicians. Clinician has continued to offer services as needed. tailings worker will continue to monitor the situation. 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 She consulted her regular issuer when her symptoms began. During the visit, she recalled an incident from 2 months ago when she felt chest pressure for a duration of 10 minutes. The issuer reassured her that her condition, including her blood pressure concern, was normal. Despite her open-heart surgery that took place on May 10, 2020, the issuer conveyed that the period since the procedure [...] up in 4 to 6 weeks in [place]. 1. Chest pain (R07.9: Chest pain, unspecified) Could represent angina we will order stress. We will also order echocardiogram 2. 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 3. HTN (hypertension) (I10: Essential (primary) hypertension) HTN: BP control with antihypertensives targeting blood pressure less than 130/80. If control is not currently achieved we will be adding additional antihypertensive or increasing dose. Stopping amlodipine Portions of this record may have been created with voice recognition artificial intelligence software, specifically [employer] (more content not included)... Normal [facility] Comment on above: Result Comment: Elec [...] someone. She requires a refill of her Vest prescription. She was advised not to take benzodiazepines, which include Xanax and the Vest, simultaneously. She primarily uses Vest to alleviate joint pain and arthritis symptoms. She mentions being diagnosed with lupus at the age of 35 [address] Torres in [place]. She also indicates that she is currently [...] will go ahead and send her to [facility] psychiatry to help with medications. 2. Primary fibromyalgia syndrome (M79.7: Fibromyalgia) We will refill the patient's Vest for 1 month and we will see her back in a month. Discussed the pros and cons of using benzo and a narcotic at the same time. Patient understands the concerns. Patient has been a long-term user of the opioids and at this time is stable. 3. Long-term current use of opiate analgesic drug (Z79.891: USP (current) use of opiate analgesic) As per # 2. 4. Irritable bowel syndrome (K58.9: Irritable bowel syndrome without diarrhea) (more content not included)... [facility] Comment on above: Result Comment: Elec tronically Signed By: Lidya Almanzar MD\.br\Date and Time Signed: 06/06/23 07:46 EDT\.br\Electronically Co-Signed By: Lucia Ramos\.br\Date and Time Co-Signed: 05/30/23 17:17 EDT Physician Orderon 06-02-2023 Physician Order [id number]#1.0 0TIFF [facility] Medication Consenton 023 Medication Consent [id number]#1.0 0TIFF [facility] Physician Referralon 023 Physician Referral [id number]#1. 00TIFF [facility] Ambulatory Visit Summaryon 1 Ambulatory Visit Summary TEA RAHMAN :1945 Visit Date:05/30/2023 Ambulatory Visit Instructions Your Diagnosis Anxiety Primary fibromyalgia syndrome Long-term current use of opiate analgesic drug Irritable bowel syndrome Atherosclerosis aorta BMI 27.0-27.9,adult Overweight child Essential hypertension Major depressive disorder with single episode, in full remission Lupus Your Care Team Attending Physician - Lidya Almanzar MD. Primary Care Physician - Lidya Almanzar MD This Is Your Medications List [...] Portillo PIPER, Rahul Varner Where: [facility] [place] Monday 1:00 PM EDT With: [place] Where: [facility] [place] Monday 2:40 PM EST With: Lidya Almanzar MD Where: [facility] [place] Invalid Interpretation Code [address] [place] [address]- \.br \ Someone Will Contact You Regarding These Appointments \.br\ [facility] [place] Ambulatory Referral, Psychiatry, Community health services in [place]., 05/30/23 14:54:00 EDT, Anxiety [facility] Pre-Visit Planningon 023 Pre-Visit Planning - From: Yuliya ORTEZ, Kim To: Yohan PIPER, Lidya Lal; Sent: 05/29/2023 13:24:19 EDT Subject: Pre-Visit Planning Due Date/Time: 05/29/2023 13:24:00 EDT Caller Name: TEA RAHMAN; Caller Number: Olga Lidia , M Oh Dr. Almanzar, *Based on your response below, can you please update the chronic problem list and address during this visit if appropriate?* During a pre-visit planning chart review, I noted the following documentation in the medical record: Current medications: Hydroxychloroquine 12/21/2022 office note-When the patient was diagnosed with lupus, she was referred to a heel gouger in [place]. She tried a different heel gouger in [place] where she stayed until that provider retired. [...] very fatigued. 03/20/2023 office note- has a heel gouger not working out for her wants to find a new one needs her proctofoam refilled for the hemorrhoids and also dr santana gave her hyoscamine for blow outs but refills ran out as she doesn't use all the time, can she get more recent phq9-15 recent leanne-15 urine collected and processed 03/21/2023 [facility] page 1 has major depressive disorder single episode mild and systemic lupus erythematosus 03/28/2023 office note-Patient is taking half a tablet of Vest twice daily and steroids for her fibromyalgia, lupus, and arthritis. She reports continued pain in her shoulders and upper back. She was unable to receive epidural in the sciatic nerve due to miscommunication regarding the appointment. She requests prescription of hydroxychloroquine to take as needed for flares. She is looking for a heel gouger. Based on your medical judgment, can you [...] feel free to contact me at extension [phone]. Thank you! Kim Dwyer, SUREKHAN, RN, CCM, CCDS, CCDS-O Invalid Interpretation Code 272 [facility] Pre-Visit Planning - From: Yuliya ORTEZ, Kim To: Yohan PIPER, Lidya Lal; Sent: 05/29/2023 13:16:19 EDT Subject: Pre-Visit Planning Due Date/Time: 05/29/2023 13:16:00 EDT Caller Name: TEA RAHMAN; Caller Number: , Oh Dr. Almanzar, *Based on your response below, [...] as the Xanax PRN. 03/21/2023 [facility] page 1 has major depressive [...] feel free to contact me at extension [phone]. Thank you! BRANDON Coffman, RN, CCM, CCDS, CCDS-O Invalid Interpretation Code 272 Bebeto Mendoza [facility] Physician Orderon 05-26-2023 Physician Order [id number]#1. 00TIFF Normal [facility] NM Myocardial Spect Rest/Str ess 1 [...] by: Portillo PIPER, Rahul Varner Transcribed by: chuck Technologist: CHRIS Technical Comments Rest Dose (mCi Tc99m Cardiolite): 10.9 Stress Dose (mCi Tc99M Cardiolite): 30.0 [facility] Stress EKG Tracingson 2022 Stress EKG Tracings [id number] 02 [id number]#1. 00CD:127 [facility] Consent for Treatmenton 04-22 Consent for Treatment [id number] [id number]#1.0 0CD:127 [facility] Consent for Treatmenton 04-21 Consent for Treatment [id number] [id number]#1.0 0CD:127 [facility] Consultation Noteon 05-08-20 Consultation Note [id number]#1.0 0CD:127 [facility] Consultation Note [id number]#1.00 CD:127 [facility] Urine Cultureon 05-04-2023 Bacteria identified Cx Nom (U) Reason for Exam Dysuria Urine 50,000 colonies/ml mixed bacterial skin contaminants 2 Days PERFORMED BY: [place] [address] PATHOLOGIST FIELD TRAINING AGENT KEYON SERNA M.D. [facility] Comment on above: Performed By: #### C UU #### [address] Physician Orderon 04-21-2023 Physician Order [id number]#1.0 0CD:127 [facility] Physician Referralon 023 Physician Referral [id number]#1. 00CD:127 [facility] Family Medicine Office/Clini c Noteon 04-17-2023 [...] Norvasc. Patient will follow-up with cardiology. Ordered: [facility] Internal Ambulatory Referral 2. Post-nasal drip (R09.82: Postnasal drip) ? We will have the patient try the Zyrtec again. Discussed how the Zyrtec I do not believe is actually messing with her stomach but more the mucus. Ordered: [facility] Internal Ambulatory Referral 3. 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 We will send to cardiology for further recommendations. Ordered: [facility] Internal Ambulatory Referral 4. BMI 28.0-28.9,adult (Z68.28: Body mass index [BMI] 28.0-28.9, adult) BMI education given. Ordered: Body Mass Index (BMI) documented 3008F Current tobacco non-user 1036F Depression Screening Negative 3352F [facility] Internal Ambulatory Referral Most recent diastolic blood pressure <80 mm Hg 3078F Patient screen for fall risk: no falls in last year or 1 fall with no injury in last year 1101F Systolic BP <130 mm Hg (Most Recent) 3074F 5. Overweight (E66.3: Overweight) As above. 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 Normal [facility] Comment on above: Result Comment: Elec tronically Signed By: Yohan PIPER, Lidya Gómez.vic\Date and Time Signed: 04/17/23 18:28 EDT Consultation Noteon 04-12-20 Consultation Note [id number]#1.0 0CD:127 Normal [facility] Consultation Note [id number] 80 [id number]#1.0 0CD:127 [facility] Family Medicine Office/Clini c Noteon 03-29-2023 [...] Patient is taking half a tablet of Vest twice daily and steroids for her fibromyalgia, lupus, and arthritis. She reports continued pain in her shoulders and upper back. She was unable to receive epidural in the sciatic nerve due to miscommunication regarding the appointment. She requests prescription of hydroxychloroquine to take as needed for flares. She is looking for a heel gouger. The adult male reports the patient presented [...] well controlled with a half of a Vest a day. 3. Long-term current use of opiate analgesic drug (Z79.891: USP (current) use of opiate analgesic) As above. 4. BMI 28.0-28.9,adult (Z68.28: Body mass index [BMI] 28.0-28.9, adult) BMI education given. 5. OA - Osteoarthritis of knee (M17.10: Unilateral primary osteoarthritis, unspecified knee) Again, patient uses the steroids to help and patient is doing well with the use of half a Vest twice a day. 6. Overweight (E66.3: Overweight) [...] with voice recognition artificial intelligence software, specifically [employer], [employer] and or [employer]. Substitutions may have occurred due to the inher (more content not included)... [facility] Comment on above: Result Comment: Elec tronically Signed By: Lidya Almanzar MD\.br\Date and Time Signed: 03/29/23 09:38 EDT\.br\Electronically Co-Signed By: Lucia Ramos\.br\Date and Time Co-Signed: 03/28/23 19:25 EDT RAD - [facility] 03-29-2023 [facility] [id number]#1.0 0CD:127 [facility] Ambulatory Visit Summaryon 0 03-28-2023 Ambulatory Visit Summary AVTEA :1945 Visit Date:03/28/2023 Ambulatory Visit Instructions Your Diagnosis Anxiety Primary fibromyalgia syndrome Long-term current use of opiate analgesic drug BMI 28.0-28.9,adult OA - Osteoarthritis of knee Overweight Generalized abdominal pain Your Care Team Attending Physician - Lidya Almanzar MD Primary Care Physician - Lidya Almanzar MD This Is Your Medications List [...] Appointments Monday 1:20 PM EDT With: Lidya Almanzar MD Where: [facility] Ambulatory Visit Summary TEA RAHMAN :1945 Visit Date:03/28/2023 Ambulatory Visit Instructions Your Diagnosis Anxiety Primary fibromyalgia syndrome Long-term current use of opiate analgesic drug BMI 28.0-28.9,adult OA - Osteoarthritis of knee Overweight Generalized abdominal pain Your Care Team Attending Physician - Lidya Almanzar MD Primary Care Physician - Lidya Almanzar MD This Is Your Medications List [...] Appointments Monday 1:20 PM EDT With: Lidya Almanzar MD Where: [facility] RAD - [facility] 03-21-2023 RAD - MIS [id number]#1.0 0CD:127 [facility] Ambulatory Visit Summaryon 0 03-20-2023 Ambulatory Visit Summary TEA RAHMAN :1945 Visit Date:03/20/2023 Ambulatory Visit Instructions Your Diagnosis Abdominal pain Primary fibromyalgia syndrome BMI 29.0-29.9,adult Over weight Tests Performed Urnls Dip Stick Non-Auto w/o Micrscpy POC 79558 Your Care Team Attending Physician - Lidya Almanzar MD Primary Care Physician - Lidya Almanzar MD This Is Your Medications List [...] 1:00 PM EDT With: Yohan PIPER, Lidya Lla Where: [facility] Medicine Office/Clini c Noteon 03-20-2023 Family [...] wasn't formed does have hemorrhoids has a heel gouger not working out for her wants to [...] ProctoFoam for Hemorrhoids - Would like another heel gouger. Review of Systems PHQ Score Initial Depression [...] Urnls Dip Stick Non-Auto w/o Micrscpy POC 16372 2. Primary fibromyalgia syndrome (M79.7: Fibromyalgia) - Will do a small steroid burst. - Then when patient finds a better Dramatic Director we will refer Ordered: methylPREDNISolone, = 1 packet(s), Oral, As Directed, as directed on package labeling, X 6 day(s), # 21 tab(s), Refills(s) 0, Pharmacy: [facility] #[id number], 167, cm, 03/20/23 11:45:00 EDT, Height/Length Dosing, 80.9, kg, 03/20/23 11:45:00 EDT, Weight Dosing 3. Hemorrhoids (K64.9: Unspecified hemorrhoids) - Proctofoam 4. BMI 29.0-29.9,adult (Z68.29: Body mass index [BMI] 29.0-29.9, adult) - BMI education given Ordered: methylPREDNISolone, = 1 packet(s), Oral, As Directed, as directed on package labeling, X 6 day(s), # 21 tab(s), Refills(s) 0, Pharmacy: [facility] #[id number], 167, cm, 03/20/23 11:45:00 EDT, Height/Length Dosing, [...] day(s), # 21 tab(s), Refills(s) 0, Pharmacy: [facility] #[id number], 167, cm, 03/20/23 11:45:00 EDT, Height/Length Dosing, [...] elías, Rectal, TID, 10 gram, Refill(s) 0, [facility] #[id number], 167, cm, 03/20/23 11:45:00 EDT, Height/Length Dosing, [...] acetaminophen-hydrocod one (more content not included)... Normal [facility] Comment on above: Result Comment: Elec tronically Signed By: Yohan PIPER, Lidya Gómez.br\Date and Time Signed: 03/20/23 12:22 EDT Consultation Noteon 03-09-20 Consultation Note [id number]#1.0 0CD:127 Normal [facility] XR chest 2V*on 03-02-2023 XR chest 2V* [facility] [place] [address] [place] [address] XRay Report Signed Patient: Tea Rahman MR#: [id number] : 1945 Acct:[id number] Age/Sex: 77 / F ADM Date: 03/02/23 Loc: ICXD Room: Type: [facility] Attending Dr: Rashard Aguilar MD Copies [...] Zen Yo M.D.03/02/2023 4:11 PM Dictation Location: [place] [address] Transcribed By: [facility] 03/02/23 161 Dictated By: Zen Yo DO 03/02/23 1610 Signed By: 03/02/23 161 Normal [facility] Consultation Noteon 02-07-20 Consultation Note [id number]#1.0 0CD:127 Normal [facility] Amorphous urine sedimentOrde red By: Rashard Aguilar on 01-24-2023 Amorphous sediment LM Ql (Urine sed) See comment Negative [facility] Comment on above: Unable to obtain acc urate result due to color interference. Automated epithelial cells c ount in urine sediment (number/area)Ordered By: Rashard Aguilar on 01-24-2023 Epithelial cells Auto (Urine sed) [#/Area] 5-9 [HPF] 0-2 [facility] Automated erythrocytes count in urine sediment (number/area)Ordered By: Rashard Aguilar on 01-24-2023 RBC Auto (Urine sed) [#/Area] None seen [HPF] 0-4 [facility] Automated leukocytes count i n urine sediment (number/area)Ordered By: Rashard Aguilar on 01-24-2023 WBC Auto (Urine sed) [#/Area] 5-9 [HPF] 0-4 [facility] Automated urine specific gra vity by refractometryOrdered By: Rashard Aguilar on 01-24-2023 Specific gravity Refractometry automated (U) [Rel density] 1.015 1.001-1.030 [facility] Basophils Auto (Bld) [#/Vol] Ordered By: Rashard Aguilar on 01-24-2023 Basophils (Bld) [#/Vol] 0.0 10*3/uL 0.0-0.2 [facility] Basophils/100 WBC Auto (Bld) Ordered By: Rashard Aguilar on 01-24-2023 Basophils/100 WBC (Bld) 0.5 % . [facility] Bilirubin Auto test strip Ql (U)Ordered By: Rashard Aguilar on 01-24-2023 Bilirubin Ql (U) See comment Negative [facility] Comment on above: Unable to obtain acc urate result due to color interference. C reactive protein [Mass/vol ume] in Serum or PlasmaOrdered By: Rasahrd Aguilar on 01-24-2023 CRP [Mass/Vol] 0.6 mg/dL 0.0-0.5 [facility] C-Reactive Proteinon 023 C-Reactive Protein 0.6 mg/dL High 0.0-0.5 [facility] Comment on above: Result Comment: PERF ORMED BY: [place] [address] PATHOLOGIST FIELD TRAINING AGENT KEYON SERNA M.D. Performed By: #### C BC, ADDONUAPLUS, ESR, CUU, CRP, CREAT #### [place] [address] [place] #### C4, C3 #### [facility] , Complement C3on 01-24-2023 Complement C3 162 mg/dL Normal 82-167 [facility] Comment on above: Result Comment: Perf ormed at: - [facility] [address] [id number] Security Developer: Paul Dumont PhD, Phone: [phone] Performed By: #### C BC, ADDONUAPLUS, ESR, CUU, CRP, CREAT #### [address] #### C4, C3 #### [facility] , Complement C4on 01-24-2023 Complement C4 36 mg/dL Normal 12-38 [facility] Comment on above: Result Comment: PERF ORMED BY: [place] [address] PATHOLOGIST FIELD TRAINING AGENT KEYON SERNA M.D. Performed By: #### C BC, ADDONUAPLUS, ESR, CUU, CRP, CREAT #### [address] #### C4, C3 #### [facility] , Complete Blood Count Auto Di ffon 01-24-2023 Basophils (Bld) [#/Vol] 0.0 10*3/uL Normal 0.0-0.2 [facility] Comment on above: Performed By: #### C BC, ADDONUAPLUS, ESR, CUU, CRP, CREAT #### [address] #### C4, C3 #### [facility] , Basophils/100 WBC (Bld) 0.5 % Normal . [facility] Comment on above: Performed By: #### C BC, ADDONUAPLUS, ESR, CUU, CRP, CREAT #### [place] [address] [place] #### C4, C3 #### [facility] , Eosinophils (Bld) [#/Vol] 0.2 10*3/uL Normal 0.0-0.45 [facility] Comment on above: Performed By: #### C BC, ADDONUAPLUS, ESR, CUU, CRP, CREAT #### [place] [address] [place] #### C4, C3 #### [facility] , Eosinophils/100 WBC (Bld) 3.3 % Normal . [facility] Comment on above: Performed By: #### C BC, ADDONUAPLUS, ESR, CUU, CRP, CREAT #### [place] [address] [place] #### C4, C3 #### [facility] , Erythrocyte distribution width (RBC) [Ratio] 14.2 % Normal 11.9-15.3 [facility] Comment on above: Performed By: #### C BC, ADDONUAPLUS, ESR, CUU, CRP, CREAT #### [place] [address] [place] #### C4, C3 #### [facility] , Hematocrit (Bld) [Volume fraction] 40.7 % Normal 34.0-46.4 [facility] Comment on above: Performed By: #### C BC, ADDONUAPLUS, ESR, CUU, CRP, CREAT #### [address] #### C4, C3 #### [facility] , Hemoglobin (Bld) [Mass/Vol] 13.2 g/dL Normal 11.8-15.4 [facility] Comment on above: Performed By: #### C BC, ADDONUAPLUS, ESR, CUU, CRP, CREAT #### [facility] [address] [place] [address] [place] #### C4, C3 #### [facility] , Lymphocytes (Bld) [#/Vol] 1.9 10*3/uL Normal 1.00-4.8 [facility] Comment on above: Performed By: #### C BC, ADDONUAPLUS, ESR, CUU, CRP, CREAT #### [place] [address] [place] #### C4, C3 #### [facility] , Lymphocytes/100 WBC (Bld) 30.8 % Normal . [facility] Comment on above: Performed By: #### C BC, ADDONUAPLUS, ESR, CUU, CRP, CREAT #### [place] [address] [place] #### C4, C3 #### [facility] , MCH (RBC) [Entitic mass] 29.5 pg Normal 24.7-34.3 [facility] Comment on above: Performed By: #### C BC, ADDONUAPLUS, ESR, CUU, CRP, CREAT #### [address] #### C4, C3 #### [facility] , MCV (RBC) [Entitic vol] 90.9 fL Normal 80-100 [facility] Comment on above: Performed By: #### C BC, ADDONUAPLUS, ESR, CUU, CRP, CREAT #### [place] [address] [place] #### C4, C3 #### [facility] , Mean Corpuscular HGB Conc 32.5 g/dL Normal 32.0-35.0 [facility] Comment on above: Performed By: #### C BC, ADDONUAPLUS, ESR, CUU, CRP, CREAT #### [place] [address] [place] #### C4, C3 #### [facility] , Monocytes (Bld) [#/Vol] 0.4 10*3/uL Normal 0.0-0.8 [facility] Comment on above: Performed By: #### C BC, ADDONUAPLUS, ESR, CUU, CRP, CREAT #### [place] [address] [place] #### C4, C3 #### [facility] , Monocytes/100 WBC (Bld) 7.1 % Normal . [facility] Comment on above: Performed By: #### C BC, ADDONUAPLUS, ESR, CUU, CRP, CREAT #### [facility] [address] [place] [address] [place] #### C4, C3 #### [facility] , Neutrophils (Bld) [#/Vol] 3.7 10*3/uL Normal 1.8-7.7 [facility] Comment on above: Performed By: #### C BC, ADDONUAPLUS, ESR, CUU, CRP, CREAT #### [address] #### C4, C3 #### [facility] , Neutrophils/100 WBC (Bld) 58.3 % Normal . [facility] Comment on above: Performed By: #### C BC, ADDONUAPLUS, ESR, CUU, CRP, CREAT #### [address] #### C4, C3 #### [facility] , NRBC% 0.1 /100{WBC} Normal 0-0.5 [facility] Comment on above: Performed By: #### C BC, ADDONUAPLUS, ESR, CUU, CRP, CREAT #### [place] [address] [place] #### C4, C3 #### [facility] , Platelet mean volume (Bld) [Entitic vol] 7.3 fL Normal 6.3-10.7 [facility] Comment on above: Performed By: #### C BC, ADDONUAPLUS, ESR, CUU, CRP, CREAT #### [place] [address] [place] #### C4, C3 #### [facility] , Platelets (Bld) [#/Vol] 239 10*3/uL Normal 150-450 [facility] Comment on above: Performed By: #### C BC, ADDONUAPLUS, ESR, CUU, CRP, CREAT #### [facility] [address] [place] [address] [place] #### C4, C3 #### [facility] , RBC (Bld) [#/Vol] 4.48 10*6/uL Normal 3.60-5.00 [facility] Comment on above: Performed By: #### C BC, ADDONUAPLUS, ESR, CUU, CRP, CREAT #### [facility] [address] [place] [address] [place] #### C4, C3 #### [facility] , WBC (Bld) [#/Vol] 6.3 10*3/uL Normal 3.8-11.6 [facility] Comment on above: Performed By: #### C BC, ADDONUAPLUS, ESR, CUU, CRP, CREAT #### [place] [address] [place] #### C4, C3 #### [facility] , Creatinineon 01-24-2023 Creatinine [Mass/Vol] 0.96 mg/dL Normal 0.60-1.20 [facility] Comment on above: Performed By: #### C BC, ADDONUAPLUS, ESR, CUU, CRP, CREAT #### [facility] [address] [place] [address] [place] #### C4, C3 #### [facility] , GFR/1.73 sq M.predicted MDRD (S/P/Bld) [Vol rate/Area] mL/min/{1.73_m2} [facility] Comment on above: Performed By: #### C BC, ADDONUAPLUS, ESR, CUU, CRP, CREAT #### [place] [address] [place] #### C4, C3 #### [facility] , Creatinine [Mass/volume] in Serum or PlasmaOrdered By: Rashard Aguilar on 01-24-2023 Creatinine [Mass/Vol] 0.96 mg/dL 0.60-1.20 [facility] Dipstick and Microscopicon 0 01-24-2023 Appearance (U) Slightly Cloudy Critically abnormal Clear [facility] Comment on above: Order Comment: Name Collection Type:: Clean-Voided Midstream Performed By: #### C BC, ADDONUAPLUS, ESR, CUU, CRP, CREAT #### [address] #### C4, C3 #### [facility] , Bacteria,Urine 1+ High None Seen [facility] Comment on above: Order Comment: Name Collection Type:: Clean-Voided Midstream Performed By: #### C BC, ADDONUAPLUS, ESR, CUU, CRP, CREAT #### [address] #### C4, C3 #### [facility] , Bilirubin,Urine Normal Negative [facility] Comment on above: Order Comment: Name Collection Type:: Clean-Voided Midstream Result Comment: Unab le to obtain accurate result due to color interference. Performed By: #### C BC, ADDONUAPLUS, ESR, CUU, CRP, CREAT #### [facility] [address] [place] [address] #### C4, C3 #### [facility] , Color (U) Sebastian Critically abnormal Yellow [facility] Comment on above: Order Comment: Name Collection Type:: Clean-Voided Midstream Performed By: #### C BC, ADDONUAPLUS, ESR, CUU, CRP, CREAT #### [address] #### C4, C3 #### [facility] , Glucose Ql (U) Normal Normal [facility] Comment on above: Order Comment: Name Collection Type:: Clean-Voided Midstream Result Comment: Unab le to obtain accurate result due to color interference. Performed By: #### C BC, ADDONUAPLUS, ESR, CUU, CRP, CREAT #### [place] [address] [place] #### C4, C3 #### [facility] , Ketones Ql (U) Normal Negative [facility] Comment on above: Order Comment: Name Collection Type:: Clean-Voided Midstream Result Comment: Unab le to obtain accurate result due to color interference. Performed By: #### C BC, ADDONUAPLUS, ESR, CUU, CRP, CREAT #### [address] #### C4, C3 #### [facility] , Leukocyte esterase Test strip Ql (U) Normal Negative [facility] Comment on above: Order Comment: Name Collection Type:: Clean-Voided Midstream Result Comment: Unab le to obtain accurate result due to color interference. Performed By: #### C BC, ADDONUAPLUS, ESR, CUU, CRP, CREAT #### [address] #### C4, C3 #### [facility] , Nitrite,Urine Normal Negative [facility] Comment on above: Order Comment: Name Collection Type:: Clean-Voided Midstream Result Comment: Unab le to obtain accurate result due to color interference. Performed By: #### C BC, ADDONUAPLUS, ESR, CUU, CRP, CREAT #### [place] [address] [place] #### C4, C3 #### [facility] , Occult Blood,Urine Normal Negative [facility] Comment on above: Order Comment: Name Collection Type:: Clean-Voided Midstream Result Comment: Unab le to obtain accurate result due to color interference. Performed By: #### C BC, ADDONUAPLUS, ESR, CUU, CRP, CREAT #### [address] #### C4, C3 #### [facility] , pH,Urine Normal 5.0-9.0 [facility] Comment on above: Order Comment: Name Collection Type:: Clean-Voided Midstream Result Comment: Unab le to obtain accurate result due to color interference. Performed By: #### C BC, ADDONUAPLUS, ESR, CUU, CRP, CREAT #### [address] #### C4, C3 #### [facility] , Protein,Urine Normal Negative [facility] Comment on above: Order Comment: Name Collection Type:: Clean-Voided Midstream Result Comment: Unab le to obtain accurate result due to color interference. Performed By: #### C BC, ADDONUAPLUS, ESR, CUU, CRP, CREAT #### [address] #### C4, C3 #### [facility] , RBC,Urine None Seen Normal 0-4 [facility] Comment on above: Order Comment: Name Collection Type:: Clean-Voided Midstream Performed By: #### C BC, ADDONUAPLUS, ESR, CUU, CRP, CREAT #### [address] #### C4, C3 #### [facility] , Specificy [place],Urine 1.015 Normal 1.001-1.030 [facility] Comment on above: Order Comment: Name Collection Type:: Clean-Voided Midstream Performed By: #### C BC, ADDONUAPLUS, ESR, CUU, CRP, CREAT #### [place] [address] [place] #### C4, C3 #### [facility] , Squamous Epithelial Cell,Urine 5-9 High 0-2 [facility] Comment on above: Order Comment: Name Collection Type:: Clean-Voided Midstream Performed By: #### C BC, ADDONUAPLUS, ESR, CUU, CRP, CREAT #### [address] #### C4, C3 #### [facility] , Urobilinogen,Urine Normal Normal [facility] Comment on above: Order Comment: Name Collection Type:: Clean-Voided Midstream Result Comment: Unab le to obtain accurate result due to color interference. Performed By: #### C BC, ADDONUAPLUS, ESR, CUU, CRP, CREAT #### [address] #### C4, C3 #### [facility] , WBC,Urine 5-9 High 0-4 [facility] Comment on above: Order Comment: Name Collection Type:: Clean-Voided Midstream Performed By: #### C BC, ADDONUAPLUS, ESR, CUU, CRP, CREAT #### [address] #### C4, C3 #### [facility] , Yeast,Urine 3+ Critically abnormal None Seen [facility] Comment on above: Order Comment: Name Collection Type:: Clean-Voided Midstream Result Comment: PERF ORMED BY: [place] [address] PATHOLOGIST FIELD TRAINING AGENT KEYON SERNA M.D. Performed By: #### C BC, ADDONUAPLUS, ESR, CUU, CRP, CREAT #### [address] #### C4, C3 #### [facility] , Eosinophils Auto (Bld) [#/Vo l]Ordered By: Rashard Aguilar on 01-24-2023 Eosinophils (Bld) [#/Vol] 0.2 10*3/uL 0.0-0.45 [facility] Eosinophils/100 WBC Auto (Bl d)Ordered By: Rashard Aguilar on 01-24-2023 Eosinophils/100 WBC (Bld) 3.3 % . [facility] Erythrocyte Sedimentation Ra duyen 01-24-2023 ESR (Bld) [Velocity] 38 mm/h High 0-29 [facility] Comment on above: Result Comment: PERF ORMED BY: [facility] [address] [place] [address] PATHOLOGIST FIELD TRAINING AGENT KEYON SERNA M.D. Performed By: #### C BC, ADDONUAPLUS, ESR, CUU, CRP, CREAT #### [facility] [address] [place] [address] [place] #### C4, C3 #### [facility] , Erythrocyte distribution wid th Auto (RBC) [Ratio]Ordered By: Rashard Aguilar on 01-24-2023 Erythrocyte distribution width (RBC) [Ratio] 14.2 % 11.9-15.3 [facility] Erythrocyte sedimentation ra te by Photometric methodOrdered By: Rashard Aguilar on 01-24-2023 ESR Photometric method (Bld) [Velocity] 38 mm/hr 0-29 [facility] Hematocrit Auto (Bld) [Volum e fraction]Ordered By: Rashard Aguilar on 01-24-2023 Hematocrit (Bld) [Volume fraction] 40.7 % 34.0-46.4 [facility] Hemoglobin [Mass/volume] in BloodOrdered By: Rashard Aguilar on 01-24-2023 Hemoglobin (Bld) [Mass/Vol] 13.2 g/dL 11.8-15.4 [facility] Ketones Test strip (U) [Mass /Vol]Ordered By: Rashard Aguilar on 01-24-2023 Ketones (U) [Mass/Vol] See comment Negative [facility] Comment on above: Unable to obtain acc urate result due to color interference. Leukocytes [#/volume] correc edwige for nucleated erythrocytes in Blood by Automated counOrdered By: Rashard Aguilar on 01-24-2023 WBC corrected for nucl RBC Auto (Bld) [#/Vol] 6.3 10*3/uL 3.8-11.6 [facility] Lymphocytes Auto (Bld) [#/Vo l]Ordered By: Rashard Aguilar on 01-24-2023 Lymphocytes (Bld) [#/Vol] 1.9 10*3/uL 1.00-4.8 [facility] Lymphocytes/100 WBC Auto (Bl d)Ordered By: Rashard Aguilar on 01-24-2023 Lymphocytes/100 WBC (Bld) 30.8 % . [facility] MCH Auto (RBC) [Entitic mass ]Ordered By: Rashard Aguilar on 01-24-2023 MCH (RBC) [Entitic mass] 29.5 pg 24.7-34.3 [facility] MCHC Auto (RBC) [Mass/Vol]Or dered By: Rashard Aguilar on 01-24-2023 MCHC (RBC) [Mass/Vol] 32.5 g/dL 32.0-35.0 [facility] [place] [facility] MCV Auto (RBC) [Entitic vol] Ordered By: Rashard Aguilar on 01-24-2023 MCV (RBC) [Entitic vol] 90.9 fL 80-100 [facility] Monocytes Auto (Bld) [#/Vol] Ordered By: Rashard Aguilar on 01-24-2023 Monocytes (Bld) [#/Vol] 0.4 10*3/uL 0.0-0.8 [facility] Monocytes/100 WBC Auto (Bld) Ordered By: Rashard Aguilar on 01-24-2023 Monocytes/100 WBC (Bld) 7.1 % . [facility] Neutrophils Auto (Bld) [#/Vo l]Ordered By: Rashard Aguilar on 01-24-2023 Neutrophils (Bld) [#/Vol] 3.7 10*3/uL 1.8-7.7 [facility] Neutrophils/100 WBC Auto (Bl d)Ordered By: Rashard Aguilar on 01-24-2023 Neutrophils/100 WBC (Bld) 58.3 % . [facility] No Panel InformationOrdered By: Rashard Aguilar on 01-24-2023 Estimated GFR (CKD-EPI) > 60.0 mL/Min [facility] Pharmacy Creatinine Clearance (Chem N/A [facility] Nucleated erythrocytes [Pres ence] in Blood by Automated countOrdered By: Rashard Aguilar on 01-24-2023 Nucleated RBC Auto Ql (Bld) 0.1 /100{WBC} 0-0.5 [facility] Platelet mean volume Auto (B ld) [Entitic vol]Ordered By: Rashard Aguilar on 01-24-2023 Platelet mean volume (Bld) [Entitic vol] 7.3 fL 6.3-10.7 [facility] Platelets Auto (Bld) [#/Vol] Ordered By: Rashard Aguilar on 01-24-2023 Platelets (Bld) [#/Vol] 239 10*3/uL 150-450 [facility] Protein Auto test strip (U) [Mass/Vol]Ordered By: Rashard Aguilar on 01-24-2023 Protein (U) [Mass/Vol] See comment Negative [facility] Comment on above: Unable to obtain acc urate result due to color interference. RBC Auto (Bld) [#/Vol]Ordere d By: Rashard Aguilar on 01-24-2023 RBC (Bld) [#/Vol] 4.48 10*6/uL 3.60-5.00 [facility] [place] Serum or plasma complement C 3 measurement (mass/volume)Ordered By: Rashard Aguilar on 01-24-2023 Complement C3 [Mass/Vol] 162 mg/dL 82-167 [facility] Comment on above: Performed at: [address] [id number] Director: Paul Dumont PhD, Phone: [phone] Serum or plasma complement C 4 measurement (mass/volume)Ordered By: Rashard Aguilar on 01-24-2023 Complement C4 [Mass/Vol] 36 mg/dL 12-38 [facility] Urine Cultureon 01-24-2023 Bacteria identified Cx Nom (U) ORGANISM: Ghazal glabrata (O:CANGLA) Leroy Count 20,000 PERFORMED BY: [address] [place] [address] PATHOLOGIST FIELD TRAINING AGENT KEYON SERNA M.D. Normal [facility] Comment on above: Performed By: #### C BC, ADDONUAPLUS, ESR, CUU, CRP, CREAT #### [facility] [address] [id number] [facility] #### C4, C3 #### [facility] , Urine appearanceOrdered By: Rashard Aguilar on 01-24-2023 Appearance (U) Slightly cloudy Clear [facility] [place] Urine bacteria detection by automated methodOrdered By: Rashard Aguilar on 01-24-2023 Bacteria Auto Ql (U) 1+ None Seen [facility] Urine colorOrdered By: Arthur Aguilar on 01-24-2023 Color (U) Sebastian Yellow [facility] Urine culture routineOrdered By: Rashard Aguilar on 01-24-2023 Bacteria identified Cx Nom (U) Ghazal glabrata [facility] Urine glucose measurement by automated test strip (mass/volume)Ordered By: Rashard Aguilar on 01-24-2023 Glucose Auto test strip (U) [Mass/Vol] See comment Normal [facility] Comment on above: Unable to obtain acc urate result due to color interference. Urine leukocyte esterase det ection by automated test stripOrdered By: Rashard Aguilar on 01-24-2023 Leukocyte esterase Auto test strip Ql (U) See comment Negative [facility] Comment on above: Unable to obtain acc urate result due to color interference. Urine nitrite detection by a utomated test stripOrdered By: Rashard Aguilar on 01-24-2023 Nitrite Auto test strip Ql (U) See comment Negative [facility] Comment on above: Unable to obtain acc urate result due to color interference. Urobilinogen Test strip (U) [Mass/Vol]Ordered By: Rashard Aguilar on 01-24-2023 Urobilinogen (U) [Mass/Vol] See comment Normal [facility] Comment on above: Unable to obtain acc urate result due to color interference. WBC Auto (Bld) [#/Vol]Ordere d By: Rashard Aguilar on 01-24-2023 WBC (Bld) [#/Vol] 6.3 10*3/uL 3.8-11.6 [facility] Yeast detection in urine sed iment by light microscopyOrdered By: Rashard Aguilar on 01-24-2023 Yeast LM Ql (Urine sed) 3+ [HPF] None Seen [facility] pH Auto test strip (U)Ordere d By: Rashard Aguilar on 01-24-2023 pH (U) See comment 5.0-9.0 [facility] Comment on above: Unable to obtain [...] with bladders stones, pt see's urology in [place] History of Present Illness Tea Rahman is a 77-year-old female here to establish care as a prior patient of Dr. Santana. She is accompanied by her today. 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 She worked in [employer] before retiring. Mrs. Rahman has a history of bladder stones and is followed by a urologist in [place]. She had a scope completed 10/21/2022 and, per patient, they stopped counting stones. She had also been followed by a urologist in [place]. When he moved his practice to [place], [place], she followed him for care. Due [...] with lupus, she was referred to a heel gouger in [place]. She tried a different heel gouger in [place] where she stayed until that provider retired. [...] Mrs. Rahman takes Xanax for anxiety and Vest for joint pain as sparingly as possible. Over the past few years, she has been taking a half a Xanax and a half a Vest every morning as well as at night. [...] fibromyalgia syndrome (M79.7: Fibromyalgia) Patient is on Vest for this. Again, discussed laws and regulations with this medication. She will comply. Will follow as needed. 5. Essential hypertension (I10: Essential (primary) hypertension) Patient is at goal at this time. Continue to monitor. 6. Long-term current use of opiate analgesic drug (Z79.891: USP (current) use of opiate analgesic) We will continue to monitor use of Vest. 7. Bladder stone (N21.0: Calculus in bladder) Will refer to urology for second opinion. Will see the patient back in 2 months and we will readjust the patient's medication as needed. Documentation services were performed after patient or guardian consented to allow Reina Anthony to record this visit. DARVIN security management specialist and provider reviewed before signing. DARVIN: [...] anxiety and depressive (more content not included)... [facility] Comment on above: Result Comment: Elec tronically Signed By: Lidya Almanzar MD\.br\Date and Time Signed: 12/22/22 14:14 EDT\.br\Electronically Co-Signed By: India Aguilar\.br\Date and Time Co-Signed: 12/21/22 17:26 EDT Physician Referralon 023 Physician Referral [id number] 00CD:127 [facility] Lab Reportson 12-21-2022 Lab Reports [id number] 0CD:127 [facility] Medication Consenton 023 Medication Consent [id number] 0CD:127 [facility] Ambulatory Visit Summaryon 0 12-20-2022 Ambulatory Visit Summary TEA RAHMAN :1945 Visit Date:12/20/2022 Ambulatory Visit Instructions Your Diagnosis Depression Atherosclerosis of aorta, Atherosclerosis aorta Mixed anxiety and depressive disorder Primary fibromyalgia syndrome Essential hypertension Long-term current use of opiate analgesic drug Bladder stone Your Care Team Attending Physician - Lidya Almanzar MD Primary Care Physician - Lidya Almanzar MD This Is Your Medications List [...] EDT With: Yohan PIPER, Lidya Lal Where: [facility] Normal [facility] Lab Reportson 12-14-2022 Lab Reports [id number] CD:127 Normal [facility] Stone Analysison 10-25-2022 Calculi description See Note Normal [facility] Comment on above: Result Comment: (NOT E) Specimen consists of numerous brown calculi. The total weight is 684 mg. Performed By: #### A STONE #### [facility] [address] [place] [id number] Security Developer: Jamel Valentine MD Composition See Note [facility] Comment on above: Result Comment: (NOT [...] composition determined by FTIR analysis. Performed By: [facility] [address] [place] [address] Graduate Research Assistant: Reggie Lawrence MD, PhD Performed By: #### A STONE #### [facility] [address] [place] [address] Security Developer: Jamel Valentine MD [place] 684 mg Normal [facility] Comment on above: Performed By: #### A STONE #### [facility] [address] [place] [address] Security Developer: Jamel Valentine MD CULTURE URINEon 09-20-2022 CULTURE URINE Culture Observations : NO GROWTH. Normal [facility] Comment on above: Performed By: #### U RCX #### [facility] [address] [place] [address] Dr. Gigi Guzman FREE T3on 09-20-2022 FREE T3 1.79 pg/mlL Critically low 2.18-3.98 [facility] [place] Comment on above: Performed By: #### F T3, TSH #### [facility] [address] [place] [address] Dr. Gigi Guzman FREE T4on 09-20-2022 Free T4 [Mass/Vol] 0.97 ng/dL Normal 0.76-1.46 [facility] Comment on above: Performed By: #### F T4 #### [facility] [address] [place] [address] Dr. Gigi Guzman TSHon 09-20-2022 TSH 2.154 uIU/mL Normal 0.358-3.740 [facility] Comment on above: Performed By: #### F T3, TSH #### [facility] [address] [place] [address] Dr. Gigi Guzman CULTURE URINEon 08-17-2022 CULTURE URINE Culture Observations : LIGHT GROWTH OF MIXED GENITAL GARFIELD. NO POTENTIAL PATHOGENS SEEN. Normal [facility] Comment on above: Performed By: #### U RCX #### [facility] [address] [place], [place] [address] Dr. Gigi Guzman Automated erythrocytes count in urine sediment (number/area)Ordered By: Rashard Aguilar on 05-17-2022 RBC Auto (Urine sed) [#/Area] 3-4 [HPF] 0-4 [facility] Automated leukocytes count i n urine sediment (number/area)Ordered By: Rashard Aguilar on 05-17-2022 WBC Auto (Urine sed) [#/Area] 10-19 [HPF] 0-4 [facility] Automated urine hyaline cast s count (number/volume)Ordered By: Rashard Aguilar on 05-17-2022 Hyaline casts Auto (U) [#/Vol] None seen [LPF] 0-1 [facility] Comment on above: --- 05/17/221731 -- -Ur Hyaline Crepe Machine Operator previously reported as: None Seen /LPF Basophils Auto (Bld) [#/Vol] Ordered By: Rashard Aguilar on 05-17-2022 Basophils (Bld) [#/Vol] 0.1 10*3/uL 0.0-0.2 [facility] Basophils/100 WBC Auto (Bld) Ordered By: Rashard Aguilar on 05-17-2022 Basophils/100 WBC (Bld) 0.9 % . [facility] Bilirubin Test strip Ql (U)O rdered By: Rashard Aguilar on 05-17-2022 Bilirubin Ql (U) Negative Negative [facility] Blood hemoglobin measurement (mass/volume)Ordered By: Rashard Aguilar on 05-17-2022 Hemoglobin (Bld) [Mass/Vol] 13.3 g/dL 11.8-15.4 [facility] Blood leukocytes automated c ount (number/volume)Ordered By: Rashard Aguilar on 05-17-2022 WBC (Bld) [#/Vol] 5.5 10*3/uL 4.5-11.0 [facility] C reactive protein [Mass/vol ume] in Serum or PlasmaOrdered By: Rashard Aguilar on 05-17-2022 CRP [Mass/Vol] 0.9 mg/dL 0.0-1.0 [facility] Casts typing in urine sedime nt by light microscopyOrdered By: Rashard Aguilar on 05-17-2022 Casts LM Nom (Urine sed) None seen [LPF] None Seen [facility] Comment on above: --- 05/17/221731 -- -Ur Other Crepe Machine Operator previously reported as: None Seen /LPF Color Auto (U)Ordered By: Alta Aguilar on 05-17-2022 Color (U) Yellow Yellow [facility] Creatinine and Glomerular fi ltration rate.predicted panel (S/P/Bld)Ordered By: Rashard Aguilar on 05-17-2022 Creatinine [Mass/Vol] 0.84 mg/dL 0.44-1.03 [facility] [place] [facility] Eosinophils Auto (Bld) [#/Vo l]Ordered By: Rashard Aguilar on 05-17-2022 Eosinophils (Bld) [#/Vol] 0.3 10*3/uL 0.0-0.45 [facility] Eosinophils/100 WBC Auto (Bl d)Ordered By: Rashard Aguilar on 05-17-2022 Eosinophils/100 WBC (Bld) 4.7 % . [facility] Erythrocyte distribution wid th Auto (RBC) [Ratio]Ordered By: Rashard Aguilar on 05-17-2022 Erythrocyte distribution width (RBC) [Ratio] 14.7 % 11.9-15.3 [facility] Erythrocyte sedimentation ra te by Photometric methodOrdered By: Rashard Aguilar on 05-17-2022 ESR Photometric method (Bld) [Velocity] 47 mm/hr 0-29 [facility] Estimated glomerular filtrat ion rate (GFR) non- AmericanOrdered By: Rashard Aguilar on 05-17-2022 GFR/1.73 sq M.predicted among non-blacks MDRD (S/P/Bld) [Vol rate/Area] > 60 mL/Min [facility] Hematocrit Auto (Bld) [Volum e fraction]Ordered By: Rashard Aguilar on 05-17-2022 Hematocrit (Bld) [Volume fraction] 40.6 % 34.0-46.4 [facility] Ketones Auto test strip (U) [Mass/Vol]Ordered By: Rashard Aguilar on 05-17-2022 Ketones (U) [Mass/Vol] Negative Negative [facility] - Hematology and Cell countsOrdered By: Rashard Aguilar on 05-17-2022 Nucleated RBC/100 WBC (Bld) [Ratio] 0.1 % 0-0.5 [facility] Lymphocytes Auto (Bld) [#/Vo l]Ordered By: Rashard Aguilar on 05-17-2022 Lymphocytes (Bld) [#/Vol] 1.6 10*3/uL 1.00-4.8 [facility] Lymphocytes/100 WBC Auto (Bl d)Ordered By: Rashard Aguilar on 05-17-2022 Lymphocytes/100 WBC (Bld) 29.3 % . [facility] MCH Auto (RBC) [Entitic mass ]Ordered By: Rashard Aguilar on 05-17-2022 MCH (RBC) [Entitic mass] 30.3 pg 24.7-34.3 [facility] MCHC Auto (RBC) [Mass/Vol]Or dered By: Rashard Aguilar on 05-17-2022 MCHC (RBC) [Mass/Vol] 32.6 g/dL 32.0-35.0 [facility] [place] [facility] MCV Auto (RBC) [Entitic vol] Ordered By: Rashard Aguilar on 05-17-2022 MCV (RBC) [Entitic vol] 93.0 fL 80-100 [facility] Monocytes Auto (Bld) [#/Vol] Ordered By: Rashard Aguilar on 05-17-2022 Monocytes (Bld) [#/Vol] 0.5 10*3/uL 0.0-0.8 [facility] Monocytes/100 WBC Auto (Bld) Ordered By: Rashard Aguilar on 05-17-2022 Monocytes/100 WBC (Bld) 8.6 % . [facility] Neutrophils Auto (Bld) [#/Vo l]Ordered By: Rashard Aguilar on 05-17-2022 Neutrophils (Bld) [#/Vol] 3.1 10*3/uL 1.8-7.7 [facility] Neutrophils/100 WBC Auto (Bl d)Ordered By: Rashard Aguilar on 05-17-2022 Neutrophils/100 WBC (Bld) 56.5 % . [facility] Nitrite Test strip Ql (U)Ord ered By: Rashard Aguilar on 05-17-2022 Nitrite Ql (U) Negative Negative [facility] No Panel InformationOrdered By: Rashard Aguilar on 05-17-2022 Estimated GFR () > 60 mL/Min [facility] Comment on above: GFR estimated refere nce range: According to KDOQI guidelines, <60 ml/min/1.73m2 is sufficient to diagnose a patient with chronic kidney disease. Pharmacy Creatinine Clearance (Chem N/A [facility] Platelet mean volume Auto (B ld) [Entitic vol]Ordered By: Rashard Aguilar on 05-17-2022 Platelet mean volume (Bld) [Entitic vol] 7.0 fL 6.3-10.7 [facility] Platelets Auto (Bld) [#/Vol] Ordered By: Rashard Aguilar on 05-17-2022 Platelets (Bld) [#/Vol] 278 10*3/uL 150-450 [facility] Protein Auto test strip (U) [Mass/Vol]Ordered By: Rashard Aguilar on 05-17-2022 Protein (U) [Mass/Vol] Negative Negative [facility] RBC Auto (Bld) [#/Vol]Ordere d By: Rashard Aguilar on 05-17-2022 RBC (Bld) [#/Vol] 4.37 10*6/uL 3.60-5.00 [facility] [place] Specific gravity Auto test s trip (U) [Rel density]Ordered By: Rashard Aguilar on 05-17-2022 Specific gravity (U) [Rel density] 1.009 1.001-1.030 [facility] Squamous epithelial cells de tection in urine sediment by light microscopyOrdered By: Rashard Aguilar on 05-17-2022 Epithelial cells.squamous LM Ql (Urine sed) 5-9 [HPF] 0-2 [facility] Urine bacteria detection by automated methodOrdered By: Rashard Aguilar on 05-17-2022 Bacteria Auto Ql (U) None seen None Seen [facility] Urine clarity by refractomet ry automatedOrdered By: Rashard Aguilar on 05-17-2022 Clarity Refractometry automated (U) Clear Clear [facility] Urine glucose measurement by automated test strip (mass/volume)Ordered By: Rashard Aguilar on 05-17-2022 Glucose Auto test strip (U) [Mass/Vol] Normal mg/dL Normal [facility] Urine hemoglobin detection b y automated test stripOrdered By: Rashard Aguilar on 05-17-2022 Hemoglobin Auto test strip Ql (U) Negative Negative [facility] Urine leukocyte esterase det ection by automated test stripOrdered By: Rashard Aguilar on 05-17-2022 Leukocyte esterase Auto test strip Ql (U) 2+ Negative [facility] Urobilinogen Auto test strip (U) [Mass/Vol]Ordered By: Rashard Aguilar on 05-17-2022 Urobilinogen (U) [Mass/Vol] Normal mg/dL Normal [facility] pH Auto test strip (U)Ordere d By: Rashard Aguilar on 05-17-2022 pH (U) 5.5 [pH] 5.0-9.0 [facility] CULTURE URINEon 03-17-2022 CULTURE URINE Isolate [...] Trimethoprim/Sulfameth oxazole <=20 S F Normal [facility] Comment on above: Performed By: #### U RCX #### [facility] [address] [place] [address] Dr. Gigi Guzman UA (CLEAN/CATCH) SLAB LIFTING ENGINEER/MICRO I F IND.on 03-14-2022 Bilirubin Ql (U) Negative Normal NEGATIVE [facility] Comment on above: Performed By: #### U ACSIND, UMICRO #### [facility] [address] [address] [address] Gigi Guzman Clarity (U) CLEAR Normal CLEAR [facility] Comment on above: Performed By: #### U ACSIND, UMICRO #### [facility] [address] [address] [address] Gigi Guzman Color (U) DK. YELLOW Normal YELLOW [facility] Comment on above: Performed By: #### U ACSIND, UMICRO #### [facility] [address] [address] [address] Gigi Guzman Glucose Ql (U) Negative Normal NEGATIVE [facility] Comment on above: Performed By: #### U ACSIND, UMICRO #### [facility] Laboratory [address] [address] [address] Gigi Guzman Hemoglobin Ql (U) Negative Normal NEGATIVE [facility] Comment on above: Performed By: #### U ACSIND, UMICRO #### [facility] [address] [place] [address] Dr. Gigi Guzman Ketones Ql (U) Negative Normal NEGATIVE [facility] Comment on above: Performed By: #### U ACSIND, UMICRO #### [facility] [address] [address] [address] Gigi Guzman LEUKOCYTES TRACE Abnormal NEGATIVE [facility] Comment on above: Performed By: #### U ACSIND, UMICRO #### [facility] [address] [place] [address] Dr. Gigi Guzman Nitrite Ql (U) Positive Abnormal NEGATIVE [facility] Comment on above: Performed By: #### U ACSIND, UMICRO #### [facility] [address] [address] [address] Gigi Guzman pH (U) 5.0 [pH] Normal 5-9 [facility] Comment on above: Performed By: #### U ACSIND, UMICRO #### [facility] [address] [place] [address] Dr. Gigi Guzman SPEC GRAVITY 1.010 Normal 1.005-<=1.02 5 [facility] Comment on above: Performed By: #### U ACSIND, UMICRO #### [facility] [address] [place] [address] Dr. Gigi Guzman UA PROTEIN Negative Normal NEGATIVE/ TRACE [facility] Comment on above: Performed By: #### U ACSKRYSTLE, UMICRO #### [facility] [address] [place] [address] Dr. Gigi Guzman UR MICRO IND INDICATED Normal [facility] Comment on above: Performed By: #### U ACSKRYSTLE UMICRO #### [facility] [address] [place] [address] Dr. Gigi Guzman Urobilinogen Qn (U) 0.2 {Maren'U}/dL Normal 0.2 - 1. 0 [facility] Comment on above: Performed By: #### U ACSKRYSTLE UMICRO #### [facility] [address] [place] [address] Dr. Gigi Guzman URINE MICROSCOPIC ONLYon BACTERIA SMALL Abnormal NONE SEEN [facility] Comment on above: Performed By: #### U ACSKRYSTLE UMICRO #### [facility] [address] [place] [address] Dr. Gigi Guzman Bacteria identified Cx Nom (U) INDICATED Normal [facility] Comment on above: Performed By: #### U ACSKRYSTLE, UMICRO #### [facility] [address] [place] [address] Dr. Gigi Guzman CAST NONE SEEN Normal NONE SEEN [facility] Comment on above: Performed By: #### U ACSKRYSTLE UMICRO #### [facility] [address] [place] [address] Dr. Gigi Guzman Crystals LM Nom (Urine sed) NONE SEEN Normal NONE SEEN [facility] Comment on above: Performed By: #### U ACSKRYSTLE UMICRO #### [facility] [address] [place] [address] Dr. Gigi Guzman Epithelial cells LM Ql (Urine sed) FEW Abnormal NONE SEEN /RARE [facility] Comment on above: Performed By: #### U ACSKRYSTLE, UMICRO #### [facility] [address] [place] [address] Dr. Gigi Guzman MUCOUS NONE SEEN Normal NONE SEEN [facility] Comment on above: Performed By: #### U ACSIND, UMICRO #### [facility] [address] [place], [place] [address] Dr. Gigi Guzman RBC 0-2 Normal 0-2 [facility] Comment on above: Performed By: #### U ACSIND, UMICRO #### [facility] [address] [id number] Gigi Guzman WBC 10-20 Abnormal NONE SEEN [facility] Comment on above: Performed By: #### U ACSIND, UMICRO #### [facility] [address] [place], [place] [address] Dr. Gigi Guzman CULTURE URINEon 01-25-2022 CULTURE URINE Culture Observations : LIGHT GROWTH OF MIXED GENITAL GARFIELD. NO POTENTIAL PATHOGENS SEEN. Normal [facility] Comment on above: Performed By: #### U RCX #### [facility] [address] [address] [address] Gigi Guzman Urinalysis - AUTOMATEDon Appearance (U) cloudy [employer] Other Bilirubin Ql (U) Negative [employer] Other Color (U) orange [employer] Other Glucose Ql (U) Negative [employer] Other Hemoglobin Ql (U) Negative [employer] Other Ketones Ql (U) Negative [employer] Other Leukocyte esterase Test strip Ql (U) trace [employer] Other Nitrite Ql (U) Positive [employer] Other pH (U) 5.0 [pH] [employer] Other Protein Ql (U) Negative [employer] Other Specific gravity (U) [Rel density] >1.030 [employer] Other Urobilinogen (U) [Mass/Vol] 0.2 mg/dL [facility] Other Urinalysis - AUTOMATED [facility] Other Urine Cultureon 12-21-2021 Urine Culture >100,000 [facility] Other ANAon 07-06-2017 KAILEY PATTERN HOMOGENEOUS AND SPECKLED Normal [facility] Comment on above: Performed By: #### 0 0121, 01036 ####[id number] [facility].[address] KAILEY SCREEN 1:160 Abnormal <1:40,1:40 [facility] Comment on above: Performed By: #### 0 0121, 53944 ####[id number] [facility].[address] ANTI DNAon 07-06-2017 ANTI DNA <1:10 Normal <1:10 [facility] Comment on above: Performed By: #### 0 0121, 31799 ####[id number] [facility].[address] ANTI-BETA 2 GLYCOPROTEIN 1on 07-06-2017 ANTI B2GP1 IGA 4.5 a units Normal 0.0-19.9 [facility] Comment on above: Performed By: #### 0 0121, 06274 ####[id number] [facility].[address] ANTI B2GP1 IGG 0.7 g units Normal 0.0-19.9 [facility] Comment on above: Performed By: #### 0 0121, 15377 ####[id number] [facility].[address] ANTI B2GP1 IGM 3.8 m units Normal 0.0-19.9 [facility] Comment on above: Performed By: #### 0 0121, 58929 ####[id number] [facility].[address] ANTI-ENAon 07-06-2017 ANTI SM Negative Normal NEG,NEGATIVE ,Neg [facility] Comment on above: Performed By: #### 0 0121, 39162 ####[id number] [facility].[address] ANTI SM/ANTIRNP Negative Normal NEG,NEGATIVE ,Neg [facility] Comment on above: Performed By: #### 0 0121, 56660 ####[address] [id number] [address] ANTICARDIOLIPIN ANTIBODYon 09-05-2016 CARDIOLIPIN IGA 3.4 APL Normal 0.0-21.9 [facility] Comment on above: Performed By: #### 0 0121, 90721 ####[address] CARDIOLIPIN IGG 7.7 GPL Normal 0.0-22.9 [facility] Comment on above: Performed By: #### 0 0121, 12375 ####[address] CARDIOLIPIN IGM 1.2 MPL Normal 0.0-10.9 [facility] Comment on above: Performed By: #### 0 0121, 41171 ####[address] [facility].[address] C REACTIVE PROTEINon 017 C reactive protein (CRP) 6.1 mg/L Normal 0.0-7.0 [facility] Comment on above: Performed By: #### 1 0238, 89626, 73501 ####[id number] CBC W/DIFFon 07-06-2017 Basophils Auto #/vol (Bld) 0.4 % Normal 0.0-2.0 [facility] Comment on above: Performed By: #### 5 102, 82526 ####[id number] [place] [address], [facility] Eosinophils/100 leukocytes 2.9 % Normal 0.0-5.0 [facility] Comment on above: Performed By: #### 5 102, 36364 ####[id number] Erythrocyte distribution width Auto Ratio (RBC) 15.1 % Normal 11.5-16.9 [facility] Comment on above: Performed By: #### 5 102, 52757 ####[id number] [facility] Erythrocytes (RBC) 4.47 mill/mm3 Normal 3.50-5.50 [facility] Comment on above: Performed By: #### 5 102, 61315 ####[id number] Hematocrit (HCT) 40.7 % Normal 36.0-48.0 [facility] Comment on above: Performed By: #### 5 102, 28167 ####[id number] Hemoglobin mass conc (Bld) 13.5 g/dL Normal 12.0-15.0 [facility] Comment on above: Performed By: #### 5 010, 59320 ####[id number] [place] [address], [facility] Lymphocytes/100 leukocytes 27.3 % Normal 20.0-40.0 [facility] Comment on above: Performed By: #### 5 010, 10946 ####[id number] [place] [address], [facility] MCH 30.1 pg Normal 24.0-32.0 [facility] Comment on above: Performed By: #### 5 0103, 35970 ####[id number] [facility].[address] MCHC mass conc (RBC) 33.0 g/dL Normal 32.0-36.0 [facility] Comment on above: Performed By: #### 5 0103, 19222 ####[id number] [facility].[address] MCV 91.1 fL Normal 80.0-100.0 [facility] Comment on above: Performed By: #### 5 010, 02224 ####[id number] [facility].[address] METHOD Normal RBC Morphology Normal [facility] Comment on above: Performed By: #### 5 010, 68709 ####[id number] [facility].[address] MONOS 6.6 % Normal 2-8 [facility] Comment on above: Performed By: #### 5 010, 69104 ####[id number] Neutrophils/100 leukocytes 62.8 % Normal 50-70 [facility] Comment on above: Performed By: #### 5 0103, 40521 ####[id number] [facility].[address] PLAT CNT 209 Thou/mm3 Normal 100-400 [facility] Comment on above: Performed By: #### 5 0103, 86397 ####[id number] [facility].[address] WBC (Leukocytes) 7.9 Thou/mm3 Normal 4.0-10.0 [facility] Comment on above: Performed By: #### 5 0103, 80411 ####[id number] [facility].[address] COMP METABOLIC PANELon 07-06 Alanine aminotransferase (ALT) 17 U/L Normal 7-52 [facility] Comment on above: Performed By: #### 0 0121, 67970 ####[id number] [place] [address], [facility] Albumin 4.4 g/dL Normal 3.5-5.7 [facility] Comment on above: Performed By: #### 0 0121, 93567 ####[id number] [place] [address], [facility] ALKALINE PHOSPH 54 IU/L Normal 34-104 [facility] Comment on above: Performed By: #### 0 0121, 67973 ####[id number] [place] [address], [facility] Aspartate aminotransferase (AST) 25 U/L Normal 13-39 [facility] Comment on above: Performed By: #### 0 0121, 65698 ####[id number] [place] [address], [facility] Bilirubin (total) 0.4 mg/dL Normal 0.3-1.0 [facility] Comment on above: Performed By: #### 0 0121, 88112 ####[id number] [place] [address], [facility] Calcium 9.4 mg/dL Normal 8.6-10.3 [facility] Comment on above: Performed By: #### 0 0121, 82747 ####[id number] [place] [address], [facility] Chloride 105 mmol/L Normal 98-107 [facility] Comment on above: Performed By: #### 0 0121, 50251 ####[id number] [place] [address], [place] CO2 28 mmol/L Normal 21-31 [facility] Comment on above: Performed By: #### 0 0121, 94741 ####[id number] [place] [address], [facility] Creatinine 0.88 mg/dL Normal 0.60-1.20 [facility] Comment on above: Performed By: #### 0 0121, 99578 ####[id number] [place] [address], [facility] eGFR (black) mL/min/{1.73_m2} Normal >60 [facility] Comment on above: Result Comment: Calc ulation may not be valid for patients over 70 years Performed By: #### 0 0121, 04637 ####[id number] [facility] [place] [address], [facility] eGFR (non-black) mL/min/{1.73_m2} Normal >60 [facility] [place] Comment on above: Result Comment: Calc ulation may not be valid for patients over 70 years Performed By: #### 0 0121, 57677 ####[id number] [place] [address], [facility] Glucose mass conc 90 mg/dL Normal 70-100 [facility] Comment on above: Performed By: #### 0 0121, 34959 ####[id number] [facility] [place] [address], [facility] Potassium molar conc 3.9 mmol/L Normal 3.5-5.1 [facility] Comment on above: Performed By: #### 0 0121, 66284 ####[id number] [place] [address], [facility] Protein 7.2 g/dL Normal 6.0-8.3 [facility] Comment on above: Performed By: #### 0 0121, 95889 ####[id number] [place] [address], [facility] Sodium 137 mmol/L Normal 136-145 [facility] Comment on above: Performed By: #### 0 0121, 37912 ####[id number] [place] [address], [facility] Urea nitrogen 16 mg/dL Normal 7-25 [facility] Comment on above: Performed By: #### 0 0121, 80293 ####[id number] [place] [address], [facility] COMPLEMENT 3on 07-06-2017 COMPLEMENT 3 125 mg/dL Normal 79-152 [facility] Comment on above: Performed By: #### 1 0238, 90131, 64755 ####[id number] [place] [address], [facility] COMPLEMENT 4on 07-06-2017 COMPLEMENT 4 28 mg/dL Normal 16-38 [facility] Comment on above: Performed By: #### 1 0238, 70139, 70634 ####[id number] CPKon 07-06-2017 Creatine kinase (CK) 55 U/L Normal 30-223 [facility] Comment on above: Performed By: #### 0 0121, 62442 ####[id number] CREATININE URINE RANDOMon Creatinine 87.0 mg/dL Normal [facility] Comment on above: Result Comment: Ther e are no established reference values for random urine specimens Performed By: #### 4 1802, 39554 ####[id number] [place] [address], [facility] SEDIMENTATION RATEon 017 SED RATE 22 mm/hr High 0-20 [facility] Comment on above: Performed By: #### 5 0103, 47367 ####[id number] [place] [address], [facility] SJOGRENS ANTIBODIESon 2016 SS-A Negative Normal NEG,NEGATIVE ,Neg [facility] Comment on above: Performed By: #### 0 0121, 48414 ####[id number] [facility] [place] [address], [facility] SS-B Negative Normal NEG,NEGATIVE ,Neg [facility] Comment on above: Performed By: #### 0 0121, 56600 ####[id number] [facility] [place] [address], [facility] T PROT UR Rhianna 07-06-2017 U TOTAL PROTEIN 10.0 mg/dL Normal [facility] Comment on above: Result Comment: Ther e are no established reference values for random urine specimens Performed By: #### 4 1802, 83229 ####[id number] [facility] [place] [address], [facility] URINALYSISon 07-06-2017 Bilirubin (total) Negative Normal NEGATIVE [facility] Comment on above: Performed By: #### 1 0008 ####[id number] [facility] [place] [address], [facility] BLOOD Negative Normal NEGATIVE [facility] Comment on above: Performed By: #### 1 0008 ####[id number] [facility] [place] [address], [facility] EPIS MANY Abnormal FEW [facility] Comment on above: Performed By: #### 1 0008 ####[id number] [facility] [place] [address], [facility] Erythrocytes (RBC) 0-2 Abnormal 0-0 [facility] Comment on above: Performed By: #### 1 0008 ####[address] [address] [facility] [place] [address], [facility] Glucose mass conc Negative Normal NEGATIVE [facility] Comment on above: Performed By: #### 1 0008 ####[id number] [place] [address], [place] KETONE Negative Normal NEGATIVE [facility] Comment on above: Performed By: #### 1 0008 ####[id number] [place] [address], [facility] LEUK GERRY TRACE Abnormal NEGATIVE [facility] Comment on above: Performed By: #### 1 0008 ####[id number] [place] [address], [facility] MUCUS THREADS OCC Abnormal NONE SEEN [facility] Comment on above: Performed By: #### 1 0008 ####[id number] [place] [address], [facility] pH of blood 5.0 [pH] Normal 5.0-8.0 [facility] Comment on above: Performed By: #### 1 0008 ####[id number] [place] [address], [facility] Protein Negative Normal NEGATIVE [facility] Comment on above: Performed By: #### 1 0008 ####[id number] [place] [address], [facility] SPEC GRAV 1.013 Low 1.015-1.020 [facility] Comment on above: Performed By: #### 1 0008 ####[id number] [place] [address], [facility] Urine, appearance CLEAR Normal CLEAR [facility] Comment on above: Performed By: #### 1 0008 ####[id number] [place] [address], [place] Urine, bacteria in sediment OCC Abnormal NONE SEEN [facility] Comment on above: Performed By: #### 1 0008 ####[id number] [place] [address], [facility] Urine, color SHAYY Abnormal YELLOW [facility] Comment on above: Performed By: #### 1 0008 ####[id number] [facility].[address] Urine, nitrite presence Positive Abnormal NEGATIVE [facility] Comment on above: Performed By: #### 1 0008 ####[id number] [facility].[address] WBC UA 6-10 Abnormal 0-0 [facility] Comment on above: Performed By: #### 1 0008 ####[id number] Vital Signs Date Time Vital Sign Value Performing Clinician Faci lity 08-17-2023 13:40-0500 Body height 167.64 cm Shayy Garza Other [employer] Other 08-17-2023 13:40-0500 Body mass index (BMI) [Ratio] 26.31 kg/m2 Shayy Garza Other [facility] Other 08-17-2023 13:40-0500 Body temperature 97.9 [degF] Shayy Garza Other [facility] Other 08-17-2023 13:40-0500 Body weight 73.94 kg Shayy Garza Other [facility] Other 08-17-2023 13:40-0500 Respiratory rate 18 /min Shayy Garza Other [facility] Other 08-17-2023 13:40-0500 SaO2% (BldA) [Mass fraction] 96 % Shayy Garza Other [facility] Other 08-01-2023 09:00-0500 Body height 167.64 cm Mary Toure Other [facility] Other 08-01-2023 09:00-0500 Body mass index (BMI) [Ratio] 26.02 kg/m2 Mary Toure Other [facility] Other 08-01-2023 09:00-0500 Body temperature 98.1 [degF] Mary Toure Other [facility] Other 08-01-2023 09:00-0500 Body weight 73.12 kg Mary Toure Other [facility] Other 08-01-2023 09:00-0500 Diastolic blood pressure 97 mm[Hg] Mary Toure Other [facility] Other 08-01-2023 09:00-0500 Respiratory rate 18 /min Mary Toure Other [facility] Other 08-01-2023 09:00-0500 SaO2% (BldA) [Mass fraction] 95 % Mary Toure Other [facility] Other 08-01-2023 09:00-0500 Systolic blood pressure 166 mm[Hg] Mary Toure Other [facility] Other 06-01-2023 14:54-0400 Diastolic blood pressure 88 mm[Hg] [facility] 06-01-2023 14:54-0400 Heart rate 78 /min [facility] 06-01-2023 14:54-0400 SaO2% (BldA) [Mass fraction] 97 % [facility] 06-01-2023 14:54-0400 Systolic blood pressure 138 mm[Hg] [facility] 04-20-2023 14:33-0400 Blood Pressure Location [facility] 04-20-2023 14:33-0400 Diastolic blood pressure 72 mm[Hg] [facility] 04-20-2023 14:33-0400 Heart rate 76 /min [facility] 04-20-2023 14:33-0400 SaO2% (BldA) [Mass fraction] 96 % [facility] 04-20-2023 14:33-0400 Systolic blood pressure 128 mm[Hg] [facility] 12-21-2021 13:35-0400 Body height 167.64 cm Mary Tejal Other [facility] Other 12-21-2021 13:35-0400 Body mass index (BMI) [Ratio] 28.73 kg/m2 Mary Tejal Other [facility] Other 12-21-2021 13:35-0400 Body temperature 97.9 [degF] Mary Tejal Other [facility] Other 12-21-2021 13:35-0400 Body weight 80.74 kg Mary Tejal Other [facility] Other 12-21-2021 13:35-0400 Diastolic blood pressure 66 mm[Hg] Mary Tejal Other [facility] Other 12-21-2021 13:35-0400 Respiratory rate 16 /min Mary Tejal Other [facility] Other 12-21-2021 13:35-0400 SaO2% (BldA) [Mass fraction] 97 % Mary Toure Other [facility] Other 12-21-2021 13:35-0400 Systolic blood pressure 129 mm[Hg] Mary Toure Other [facility] Other Encounters Encounter Date Encounter Type Care Provider Facility Start: 01-19-2024 End: 01-19-2024 ambulatory SERA JENSEN Not Available Start: 01-17-2024 End: 01-17-2024 ambulatory SHAIKH XOCHITL Not Available Start: 01-16-2024 End: 01-17-2024 ambulatory [facility] Start: 01-13-2024 End: 01-14-2024 Emergency department patient visit [facility] Start: 01-09-2024 End: 01-09-2024 ambulatory JOIE AMILCAR Not Available Start: 12-26-2023 End: 12-26-2023 ambulatory [facility] Start: 12-21-2023 End: 12-21-2023 ambulatory SHAIKH XOCHITL Not Available Start: 12-19-2023 End: 12-19-2023 ambulatory [facility] Start: 12-12-2023 End: 12-12-2023 ambulatory [facility] Start: 11-13-2023 End: 11-14-2023 ambulatory XXXX NONE Facility:[facility] [facility] Start: 11-13-2023 End: 11-13-2023 Patient encounter procedure Rahul Salas [facility] Start: 11-08-2023 End: 11-08-2023 ambulatory SHAIKH XOCHITL Not Available Start: 10-27-2023 End: 10-27-2023 ambulatory SERA JENSEN Not Available Start: 10-09-2023 End: 10-09-2023 ambulatory SHAIKH XOCHITL Not Available Start: 09-27-2023 Telephone encounter Deven Benton MA [facility] Comment on above: Medication Question (PT HAS BEEN GIVEN ZOFRAN IN THE PAST (PREVIOUS MD) FOR STOMACH ISSUES. SHE ASKED IF YOU COULD SEND SOME IN FOR HER USE FROM TIME TO TIME -SCR) Start: 09-12-2023 End: 09-12-2023 ambulatory Rashard Aguilar Facility:[facility] Start: 09-12-2023 End: 09-12-2023 ambulatory PHYSICIAN NO [facility] Work Phone: Start: 09-12-2023 End: 09-12-2023 Patient encounter procedure PHYSICIAN NO [facility] [address] Work Phone: Start: 09-05-2023 End: 09-05-2023 ambulatory SHAIKH THEODOREELLEHerbert Not Available Start: 08-28-2023 End: 08-29-2023 ambulatory Gem Contreras Facility[facility] Start: 08-28-2023 End: 08-28-2023 Patient encounter procedure Gem Contreras [facility] Start: 08-20-2023 End: 08-20-2023 ambulatory Shayy Garza Other [facility] Other Start: 08-20-2023 Telephone encounter Shayy Garza [facility] [address] Start: 08-17-2023 End: 08-17-2023 ambulatory Shayy Garza Facility:[facility] Start: 08-17-2023 End: 08-17-2023 Departed Referred PHYSICIAN NO [facility] [address] Work Phone: Start: 08-17-2023 End: 08-17-2023 ambulatory PHYSICIAN NO [facility] Work Phone: Start: 08-17-2023 Office outpatient visit 15 minutes Shayy Garza [facility] [place] Start: 08-17-2023 End: 08-17-2023 Patient encounter procedure PHYSICIAN NO [facility] [place] Work Phone: Start: 2023 End: 08-16-2023 ambulatory Camelia LOW [facility] Start: 08-01-2023 Office outpatient visit 15 minutes Mary Tejal [facility] [place] Start: 08-01-2023 End: 08-01-2023 ambulatory Mary Toure [facility] Other Start: 08-01-2023 End: 08-01-2023 Departed Referred PHYSICIAN BIANKA [facility] [address] [place] Work Phone: Start: 07-31-2023 End: 08-01-2023 ambulatory Gem Contreras Facility[facility] Start: 07-31-2023 End: 08-01-2023 Patient encounter procedure Gem Contreras [facility] Start: 07-24-2023 End: 07-24-2023 ambulatory SERA JENSEN Not Available Start: 07-14-2023 End: 07-15-2023 ambulatory Lidya Almanzar Facility:[facility] Start: 06-29-2023 ambulatory Tonio Levy Facility:[facility] Start: 06-23-2023 ambulatory Gem Contreras Facility:[facility] Start: 06-22-2023 End: 06-23-2023 ambulatory Lidya Almanzar Facility:[facility] Start: 06-13-2023 ambulatory Gem Contreras Facility [facility] Start: 06-06-2023 End: 06-07-2023 ambulatory Gem Contreras Facility:[facility] Start: 06-06-2023 End: 06-06-2023 Patient encounter procedure Gem Contreras [facility] Start: 06-01-2023 End: 06-02-2023 ambulatory Lidya Almanzar [facility] Start: 06-01-2023 End: 06-01-2023 Patient encounter procedure Rahul Salas [facility] Start: 05-31-2023 ambulatory Gem Contreras Facility: [facility] Start: 05-30-2023 End: 05-31-2023 ambulatory Lidya Almanzar Facility:[facility] [place] Start: 05-25-2023 End: 05-26-2023 ambulatory XXXX NONE Facility[facility] Start: 05-11-2023 End: 05-12-2023 ambulatory Rahul Salas Facility[facility] Start: 05-11-2023 End: 05-11-2023 Patient encounter procedure Rahul Salas [facility] Start: 05-09-2023 Telephone encounter Shayy Garza [facility] [place] Start: 05-09-2023 End: 05-10-2023 ambulatory Franco SCHERER [facility] Other Start: 05-04-2023 End: 05-04-2023 ambulatory Shayy Garza Facility:[facility] Start: 04-20-2023 End: 04-21-2023 ambulatory Lidya Almanzar [facility] Start: 04-20-2023 End: 04-20-2023 Patient encounter procedure Rahul Salas [facility] Start: 04-17-2023 End: 04-18-2023 ambulatory Lidya Almanzar Facility:[facility] Start: 03-28-2023 End: 03-29-2023 ambulatory Lidya Almanzar Facility:[facility] Start: 03-20-2023 End: 03-21-2023 ambulatory Lidya Almanzar Facility: [facility] [place] Start: 03-02-2023 End: 03-02-2023 ambulatory Rashard Aguilar Facility:[facility] Start: 03-02-2023 End: 03-02-2023 ambulatory MD Ashutosh Santana Work Phone: [facility] Work Phone: Start: 03-02-2023 End: 03-02-2023 Patient encounter procedure MD Ashutosh Santana Work Phone: [facility] [address] Work Phone: Start: 01-24-2023 End: 01-24-2023 ambulatory Rashard Aguilar Facility:[facility] Start: 01-24-2023 End: 01-24-2023 ambulatory MD Ashutosh Santana Work Phone: [facility] Work Phone: Start: 01-24-2023 End: 01-24-2023 Patient encounter procedure MD Ashutosh Santana Work Phone: [facility] [address] Work Phone: Start: 12-20-2022 End: 12-21-2022 ambulatory Lidya Almanzar Facility:[facility] Start: 10-21-2022 End: 10-22-2022 ambulatory PILI VELASCO [facility] Start: 09-20-2022 End: 09-21-[address] ASHUTOSH SANTANA Facility:[facility] Start: 08-17-2022 End: 08-18-[address] ASHUTOSH SANTANA Facility:[facility] Start: 05-17-2022 End: 05-17-2022 ambulatory MD Ashutosh Santana Work Phone: [facility] Work Phone: Start: 05-17-2022 End: 05-17-2022 Patient encounter procedure MD Ashutosh Santana Work Phone: [facility] [address] Start: 03-14-2022 End: 03-15-[address] ASHUTOSH SANTANA Facility:[facility] Start: 01-25-2022 End: 01-26-[address] ASHUTOSH SANTANA Facility:[facility] Start: 01-06-2022 End: 01-06-2022 ambulatory Mary Toure Other [facility] Other Start: 05-19-2022 Telephone encounter [facility] [place] Start: 12-21-2021 End: 12-21-2021 ambulatory Mary Paulmond Other [facility] Other Start: 12-21-2021 Office outpatient visit 25 minutes Mary Tejal [facility] [place] Start: 09-27-[address] ASHUTOSH SANTANA Facilit y:[facility] Start: 07-06-2017 End: 07-07-2017 Ambulatory LISET CEDENO Facility:[facility] Procedures Date Procedure Procedure Detail Performing Clinician Start: 12-26-2023 Follow-up visit Follow-up MICHAEL Pamela YOUNG Start: 08-17-2023 Urine culture PHYSICIAN NO FAMILY [...] Wellness (AWV) Medicare Annual Wellness (AWV) [facility] Start: 11-08-2023 End: 11-08-2023 Patient encounter procedure 11/08/2023 3:30 PM EDT Office Visit [facility] [address] [place] [id number] Shaikh Leung MD [address] [place] [id number] [facility] Start: 09-12-2023 Bacteria identified in Urine by Culture [facility] Start: 08-17-2023 Bacteria identified in Urine by Culture [facility] Start: 04-21-2023 Influenza vaccination Influenza Vaccine (#1) [facility] Start: 01-24-2023 Bacteria identified in Urine by Culture Urine Culture [facility] Start: 05-17-2022 [facility] Start: 1951 Pneumococcal Vaccine: 65+ Years (1 - PCV) Pneumococcal Vaccine: 65+ Years (1 - PCV) [facility] Bacteria identified in Urine by Culture [facility] Complement C3 [Mass/ volume] in Serum or Plasma [facility] Work Phone: Complement C3 [Mass/ volume] in Serum or Plasma [facility] Complement C4 [Mass/ volume] in Serum or Plasma [facility] Work Phone: Complement C4 [Mass/ volume] in Serum or Plasma [facility] Myeloperoxidase Ab [Units/volume] in Serum by Immunoassay [facility] Work Phone: Neutrophil cytoplasm ic Ab.classic [Titer] in Serum by Immunofluorescence [facility] Work Phone: Neutrophil cytoplasm ic Ab.perinuclear.atypical [Titer] in Serum by Immunofluorescence [facility] Work Phone: P-ANCA measurement [facility] Work Phone: Proteinase 3 Ab [Units/volume] in Serum by Immunoassay [facility] Work Phone: Immunizations Immunization Date Immunization Notes Care Provider Tonja martinez NEGATED: Highlighted row has not occurred!05-30-2023 influenza virus vaccine, unspecified formulation Rahul Salas [facility] NEGATED: Highlighted row has not occurred!11-02-2022 influenza virus vaccine, unspecified formulation Rahul Salas [facility] NEGATED: Highlighted row has not occurred!11-02-2022 SARS-CoV-2 mRNA (tozinameran 5y-11y) vaccine [facility] Payers Date Payer Category Payer Self-pay [id number] 2022 Medicare ANTHEM MEDICARE ADVANTAGE ANTHEM MEDICARE ADVANTAGE [id number] 2022-Present [address] [place] [address] [id number] 2021 Medicaid MEDICAID [facility] [id number] 2021-Present [phone] [address] [place] [address] Medicaid [id number] 2020 Medicare [id number] 2.16.840.1.633701.19 1959 Medicaid [id number] 2.16.840.1.687911.19 1959 Medicare [id number] 2.16.840.1.464868.19 1945 Unknown [id number] 2.16.840.1.348894.3.579.2. 593 1945 Unknown [id number] 2.16.840.1.733424.3.579.2. 593 1945 Unknown [id number] 2.16.840.1.906532.3.579.2. 593 1945 Unknown [id number] 2.16.840.1.576805.3.579.2. 593 1945 Unknown [id number] 2.16.840.1.163788.3.579.2. 593 1945 Unknown [id number] 2.16.840.1.682523.3.579.2. 175 1945 Unknown [id number] 2.16.840.1.421510.3.579.2. 727 1945 Unknown [id number] 2.16.840.1.978643.3.579.2. 1945 Unknown [id number] 2.16.840.1.320928.3.579.2. 1945 Unknown [id number] 2.16.840.1.000399.3.579.2. 1945 Unknown [id number] 2.16.840.1.339574.3.579.2. 1945 Unknown [id number] 2.16.840.1.600890.3.579.2. 1945 Unknown [id number] 2.16.840.1.693460.3.579.2 1945 Unknown [id number] 2.16.840.1.076605.3.579.2 1945 Unknown [id number] 2.16.840.1.934158.3.579.2 1945 Unknown [id number] 2.16.840.1.457168.3.579.2 1945 Unknown [id number] 2.16.840.1.303078.3.579.2. 1945 Unknown [id number] 2.16.840.1.322568.3.579.2 1945 Unknown [id number] 2.16.840.1.158818.3.579.2. 1945 Unknown [id number] 2.16.840.1.414759.3.579.2 1945 Unknown [id number] 2.16.840.1.576271.3.579.2. 1945 Unknown [id number] 2.16.840.1.432094.3.579.2. 727 1945 Unknown [id number] 2.16.840.1.245429.3.579.2. 727 1945 Unknown [id number] 2.16.840.1.364512.3.579.2. 727 1945 Unknown [id number] 2.16.840.1.620590.3.579.2. 727 1945 Unknown [id number] 2.16.840.1.267509.3.579.2. 1286 1945 Unknown [id number] 2.16.840.1.667808.3.579.2. 1286 1945 Unknown [id number] 2.16.840.1.286653.3.579.2. 1286 1945 Unknown [id number] 2.16.840.1.026661.3.579.2. 1286 1945 Unknown [id number] 2.16.840.1.808825.3.579.2. 1286 1945 Unknown [id number] 2.16.840.1.519225.3.579.2. 1286 1945 Unknown [id number] 2.16.840.1.807231.3.579.2. 1259 1945 Unknown [id number] 2.16.840.1.510055.3.579.2. 1259 1945 Unknown [id number] 2.16.840.1.112474.3.579.2. 1259 1945 Unknown [id number] 2.16.840.1.652125.3.579.2. 1259 1945 Unknown [id number] 2.16.840.1.241425.3.579.2. 1259 1945 Unknown [id number] 2.16.840.1.951652.3.579.2. 1259 1945 Unknown [id number] 2.16.840.1.504333.3.579.2. 1259 1945 Unknown [id number] 2.16.840.1.734726.3.579.2. 1259 1945 Unknown [id number] 2.16.840.1.879543.3.579.2. 1259 1945 Unknown [id number] 2.16.840.1.760949.3.579.2. 1259 1945 Unknown [id number] 2.16.840.1.314763.3.579.2. 1259 [facility] [id number] Medicare Medicare Nonpatient [id number] H38 [id number] Unknown [id number] 2.16.840.1.502065.3.579.2. 531 Unknown [id number] 2.16.840.1.098440.3.579.2. 531 Unknown [id number] 2.16.840.1.337319.3.579.2. 531 Unknown [id number] 2.16.840.1.225353.3.579.2. 531 Unknown [id number] 2.16.840.1.123658.3.579.2. 531 Unknown [id number] 2.16.840.1.795446.3.579.2. 531 Social History Date Type Detail Facility Unknown if ever smoked [facility] Other Start: 09-05-2023 Sex Assigned At F [facility] Start: 1945 Sex Assigned At Female F [facility] Start: 04-17-2023 End: 06-22-2023 Tobacco smoking status Never smoked tobacco (finding) [facility] Tobacco smoking status Never [facility] Start: 05-01-2023 Tobacco use and exposure Smokeless tobacco non-user [facility] Start: 09-05-2023 Alcohol intake Lifetime non-d yessica (finding) [facility] Start: 09-05-2023 History of Social function [facility] Start: 05-01-2023 Alcohol Comment caffeine intak e: 1-2 cups per day. [facility] Start: 1945 Sex Assigned At Not on file N [facility] Functional Status Date Assessment Result Facility 06-01-2023 Functional Status No [facility] 04-20-2023 Functional Status No [facility] Clinical Notes 12-21-2021 to 08-17-2023 Note [...] understanding and is agreeable to treatment plan. [facility] Other 12-12-2023 Evaluation note* Encounter Date Diagnosis [...] as needed for aches pains or fevers. [facility] Other 09-22-2023 NoteEchocardiology Procedure Exam Date/Time Accession # Ordering Echo Transthoracic 05/11/2023 11:40 EDT [id number] Portillo PIPER, Rahul Varner CPT code 69718 60685 Reason for Exam (Echo Transthoracic Complete) I25.10;CAD Coronary artery disease Report Version: 1 Study ID: [id number] [address] Adult Echocardiogram Report Name: TEA RAHMAN Study Date: 05/11/2023, 10: 55 AM Patient Location: [facility] : 1945 (MM/DD/YYYY) Gender: Female Age: 77 Years Height: 167.64 cm BP: 105 / 64 mmHg Weight: 79.38 kg HR: 62 bpm BSA: 1.89 m? Ordering Physician: Rahul Salas Referring Physician: Rahul Salas Performed By: Dunia Orellana RDMS, T Reason For Study: CAD Coronary artery disease [...] Signed by: Rahul Salas MD Transcribed by: [facility] Technologist: [facility]05-03-2022 Evaluation note* Encounter Date Diagnosis Assessment Notes [...] the ER for worsening symptoms or concerns [facility] Other Evaluation + Plan note Future Appointments Appointment Date:05/25/2023 03:15:00 PM Scheduled Provider:Rahul Salas MD Location[facility] [place] Appointment Type:Cardiology Follow Up (FT) Appointment Date:06/13/2023 01:20:00 PM Scheduled Provider:Lidya Almanzar MD Location:[facility] Appointment Type: Open [facility] Future Appointments Appointment Date:06/06/2023 01:00:00 PM Scheduled Provider:[place] Location:[facility] Appointment Type:BH Therapy New Patient Appointment Date:06/22/2023 04:00:00 PM Scheduled Provider:Lidya Almanzar MD Location:[facility] Appointment Type: Open Appointment Date:06/29/2023 02:30:00 PM Scheduled Provider:Tonio Levy MD Location[facility] Appointment Type:BAD New Patient Appointment Date:07/14/2023 09:30:00 AM Scheduled Provider: Location:[facility] Appointment Type: Medicare Wellness Subsequent [facility] Future Appointments Appointment Date:06/13/2023 01:00:00 PM Scheduled Provider:[place] Location:[facility] Appointment Type:BH Therapy 60 Appointment Date:06/22/2023 04:00:00 PM Scheduled Provider:Lidya Almanzar MD Location:[facility] Appointment Type: Open Appointment Date:06/29/2023 02:30:00 PM Scheduled Provider:Tonio Levy MD Location[facility] Appointment Type:BAD New Patient Appointment Date:07/14/2023 09:30:00 AM Scheduled Provider: Location:[facility] Appointment Type: Medicare Wellness Subsequent [facility] evaluation + Plan note Future Appointments Appointment Date:08/10/2023 03:00:00 PM Scheduled Provider:Camelia LOW CNP Location[facility] Appointment Type:Cardiology ED Follow Up (FT) [facility] evaluation + Plan note Future Appointments Appointment Date:11/13/2023 12:15:00 PM Scheduled Provider:Rahul Salas MD Location[facility] Appointment Type:Cardiology Follow Up (FT) [facility] evaluation + Plan note Future Appointments Appointment Date:05/16/2024 01:00:00 PM Scheduled Provider:Rahul Salas MD Location[facility] Appointment Type:Cardiology Follow Up (FT) [facility] noteNo InformationNortD[facility] Other Evaluation noteNo assessment information available [facility] Work Phone: Evalulvztr note* Diagnosis Nausea- Primary Nausea alone documented [...] heart Hospitalization History see above surgical hx [facility] [employer] Other Hospital course Narrative No data available for this section [facility] No data available for this section [facility] No data available for this section [facility] Summary Purpose Family History No Family [...] section and content) DATE CREATED AUTHOR 02/13/2018 [facility] DATE CREATED AUTHOR AUTHOR'S ORGANIZ ATION 09/21/2022 [facility] DATE CREATED AUTHOR AUTHOR'S ORGANIZ ATION 08/27/2023 [facility] DATE CREATED AUTHOR AUTHOR'S ORGANIZ ATION 08/29/2023 [facility] DATE CREATED AUTHOR AUTHOR'S ORGANIZ ATION 09/29/2023 [facility] DATE CREATED AUTHOR AUTHOR'S ORGANIZ ATION 12/05/2023 [facility] DATE CREATED AUTHOR AUTHOR'S ORGANIZ ATION 12/28/2023 [facility] DATE CREATED AUTHOR AUTHOR'S ORGANIZ ATION [facility]/2024 [facility] DATE CREATED AUTHOR AUTHOR'S ORGANIZ ATION 01/23/2024 [facility] EPIC REASON FOR VISIT [...] September 12, 2023 End: September 12, 2023 [employer] Relationship Specialty Start Date End Date Shaikh [...] BE BASED ON THE PRIMARY CLINICAL RECORDS. [employer] provides no warranty or guarantee of the accuracy or completeness of information in this document.
[2024-01-27 00:30] VITALS: BP 175/83; PULSE 68; TEMP 36.7; O2SAT 96; BMI 25.2
--- NOTE | 2024-01-27 00:58 | ED_ITS ---
HPI - Nausea/Vomiting/Diarrhea General Chief complaint: Nausea/Vomiting/Diarrhea Stated complaint: adb pain Time Seen by Provider: 01/27/24 00:54 Source: patient Mode of arrival: walk-in Limitations: no limitations History of Present Illness HPI Narrative: patient presents complaining of IBSd. feels she is dehydrated because of her diarrhea. No vomiting. No light headiness Related Data Home Medications ?Medication ?Instructions ?Recorded ?Confirmed alprazolam 0.5 mg tablet 0.5 mg PO BID 12/03/23 01/27/24 carvedilol 12.5 mg tablet 12.5 mg PO DAILY 12/03/23 01/27/24 hydrocodone 5 mg-acetaminophen 325 1 tab PO Q8H PRN pain 12/03/23 01/27/24 mg tablet hydroxychloroquine 200 mg tablet 200 mg PO DAILY 12/03/23 01/27/24 levothyroxine 100 mcg tablet 100 mcg PO DAILY 12/03/23 01/27/24 vibegron 75 mg tablet (Gemtesa) 75 mg PO DAILY 12/03/23 01/27/24 docusate sodium 100 mg capsule 100 mg PO DAILY 01/27/24 01/27/24 escitalopram oxalate 5 mg tablet 5 mg PO DAILY 01/27/24 01/27/24 (Lexapro) linaclotide 145 mcg capsule 145 mcg PO DAILY 01/27/24 01/27/24 (Linzess) Previous Rx's ?Medication ?Instructions ?Recorded ondansetron 4 mg disintegrating 4 mg PO Q8H PRN nausea and 08/06/23 tablet vomiting 4 days #16 tabs cephalexin 500 mg capsule 500 mg PO Q8H 7 days #21 caps 12/03/23 ondansetron 4 mg disintegrating 4 mg PO Q6H PRN nausea and 12/03/23 tablet vomiting #12 tabs Allergies Allergy/AdvReac Type Severity Reaction Status Date / Time prochlorperazine AdvReac Severe Vomiting Verified 01/27/24 00:37 [From Compazine] Review of Systems ROS Status of ROS 10 or more systems reviewed and unremark able except as noted in history and below PFSH PFSH Social History Smoking status: Never smoker Exam Constitutional Vital Signs, click to edit/add: Last Vital Signs Temp 98.1 F 01/27/24 00:30 Pulse 64 01/27/24 01:31 Resp 18 01/27/24 01:31 BP 160/74 H 01/27/24 01:31 Pulse Ox 93 L 01/27/24 01:31 O2 Del Method Room Air 01/27/24 01:31 Common normals: no apparent distress, average body habitus, oriented x3, no limitations, healthy appearing, alert and well nourished [facility] Common normals: normocephalic and head/scalp atraumatic Eye Common normals: EOMs intact bilaterally and conjunctivae normal Respiratory Common normals: normal respiratory effort, no retractions, no use of accessory muscles and clear to auscultation bilaterally Cardio Common normals: regular rate, regular rhythm, S1 normal heart sound and S2 normal heart sound GI Common normals: Normal to inspection, nondistended, normoactive bowel sounds present, soft to palpation and non-tender Extremity Common normals: normal to inspection and full ROM Neuro Common normals: oriented x3, CN's II-XII intact bilaterally and moves all extremities Psych Appearance: grossly normal Course Vital Signs Vital signs: Vital Signs Temperature 98.1 F 01/27/24 00:30 Pulse Rate 68 01/27/24 00:30 Respiratory Rate 18 01/27/24 00:30 Blood Pressure 175/83 H 01/27/24 00:30 Pulse Oximetry 96 01/27/24 00:30 Oxygen Delivery Method Room Air 01/27/24 00:30 Temperature 98.1 F 01/27/24 00:30 Pulse Rate 64 01/27/24 01:31 Respiratory Rate 18 01/27/24 01:31 Blood Pressure 160/74 H 01/27/24 01:31 Pulse Oximetry 93 L 01/27/24 01:31 Oxygen Delivery Method Room Air 01/27/24 01:31 MDM - Nausea/Vomiting/Diarrhea MDM Narrative Medical decision making narrative: presents complaining of recurrent diarrhea from IBSD and feels she is dehydrated. Exam is neg. labs and fluids ordered. labs without evidence of dehydration. UA contaminated. Past UA with similar findings culture results with mixed nohemy. Patient discharged home after hydration and advised to follow up with her doctor. Her labs due not reflect dehydration. Lab Data Labs: Lab Results 01/27/24 Range/Units 00:45 WBC 6.0 (4.0-11.0) 10^3/uL RBC 4.05 L (4.20-5.40) 10^6/uL Hgb 12.3 (12.0-16.0) g/dL Hct 38.8 (36.0-48.0) % MCV 95.8 (81.0-99.0) fL MCH 30.4 (26.7-34.0) pg MCHC 31.7 (29.9-35.2) g/dL RDW 13.8 (11.0-15.0) % Plt Count 210 (150-450) 10^3/uL MPV 9.5 (9.5-13.5) fL Neut % (Auto) 54.4 (43.0-75.0) % Lymph % (Auto) 29.8 (20.5-60.0) % [place] % (Auto) 11.2 (1.7-12.0) % Eos % (Auto) 3.7 (0.9-7.0) % Baso % (Auto) 0.7 (0.2-2.0) % Neut # (Auto) 3.3 (1.4-6.5) 10^3/uL Lymph # (Auto) 1.8 (1.2-3.8) 10^3/uL [place] # (Auto) 0.7 (0.3-0.8) 10^3/uL Eos # (Auto) 0.2 (0.0-0.7) 10^3/uL Baso # (Auto) 0.0 (0.0-0.1) 10^3/uL Abs Immat Gran (auto) 0.01 (0.00-0.03) 10^3/uL Imm/Tot Granulo (auto) 0.2 (0.0-0.5) % Sodium 142 (136-145) mmol/L Potassium 3.3 L (3.5-5.1) mmol/L Chloride 107 (98-107) mmol/L Carbon Dioxide 26.6 (21.0-32.0) mmol/L Anion Gap 11.7 BUN 17.0 (7.0-18.0) mg/dL Creatinine 1.11 H (0.55-1.02) mg/dL Est GFR ( Amer) 58 L (>=60) Est GFR (Non-Af Amer) 48 L (>=60) BUN/Creatinine Ratio 15.3 Glucose 98 (74-106) mg/dL Calcium 9.2 (8.5-10.1) mg/dL Urine Color [place] A (YELLOW) Urine Clarity Clear (CLEAR) Urine pH 6.0 (5.0-9.0) Ur Specific [place] <=1.005 A (1.005-1.025) Urine Protein Negative (NEG/TRACE) mg/dL Urine Glucose (UA) Negative (NEGATIVE) mg/dL Urine Ketones Negative (NEGATIVE) mg/dL Urine Occult Blood Trace-l (NEGATIVE) Urine Nitrite Positive A (NEGATIVE) Urine Bilirubin Negative (NEGATIVE) Urine Urobilinogen 1.0 (0.2-1.0) EU/dL Ur Leukocyte Esterase Moderate A (NEGATIVE) Urine RBC 2-5 A (0-2) #/HPF Urine WBC 20-50 A (NONE SEEN) #/HPF Ur Squamous Epith Cells Moderate A (NONE/RARE) #/LPF Ur Transition Epith Cell Few A (NONE SEEN) #/LPF Urine Crystals None seen (None Seen) #/HPF Urine Bacteria Moderate A (NONE SEEN) #/HPF Urine Casts None seen (NONE SEEN) #/LPF Urine Mucus None seen (NONE SEEN) Urine Yeast Seen A (NONE SEEN) Ur Culture Indicated? Yes Discharge Plan Discharge Stand Alone Forms: Portal Instructions Chief Complaint: Nausea/Vomiting/Diarrhea Clinical Impression: Anxiety, Dehydration, Diarrhea Patient Disposition: Home, Self-Care Prescriptions / Home Meds: No Action ondansetron 4 mg tablet,disintegrating 4 mg PO Q8H PRN (Reason: nausea and vomiting) 4 Days Qty: 16 0RF alprazolam 0.5 mg tablet 0.5 mg PO BID carvedilol 12.5 mg tablet 12.5 mg PO DAILY hydrocodone-acetaminophen 5-325 mg tablet 1 tab PO Q8H PRN (Reason: pain) hydroxychloroquine 200 mg tablet 200 mg PO DAILY levothyroxine 100 mcg tablet 100 mcg PO DAILY Gemtesa 75 mg tablet 75 mg PO DAILY Hold Instructions: Doctor's Order cephalexin 500 mg capsule 500 mg PO Q8H 7 Days Qty: 21 0RF ondansetron 4 mg tablet,disintegrating 4 mg PO Q6H PRN (Reason: nausea and vomiting) Qty: 12 0RF docusate sodium 100 mg capsule 100 mg PO DAILY Linzess 145 mcg capsule 145 mcg PO DAILY escitalopram oxalate [Lexapro] 5 mg tablet 5 mg PO DAILY Print Language: Panamanian Instructions: Dehydration (ED) Referrals: Shaikh Leung MD [Primary Care Provider] - 1 week
[2024-01-27 01:04] LABS: Basophils Percent Auto 0.7 % (0.2-2.0); Eosinophils Absolute Auto 0.2 10^3/uL (0.0-0.7); Eosinophils Percent Auto 3.7 % (0.9-7.0); Hematocrit 38.8 % (36.0-48.0); Hemoglobin 12.3 g/dL (12.0-16.0); Immature Granulocytes Abs Auto 0.01 10^3/uL (0.00-0.03); Immature Granulocytes Pct Auto 0.2 % (0.0-0.5); Lymphocytes Absolute Auto 1.8 10^3/uL (1.2-3.8); Lymphocytes Percent Auto 29.8 % (20.5-60.0); Mean Corpuscular HGB Conc 31.7 g/dL (29.9-35.2); Mean Corpuscular Hemoglobin 30.4 pg (26.7-34.0); Mean Corpuscular Volume 95.8 fL (81.0-99.0); Mean Platelet Volume 9.5 fL (9.5-13.5); Monocytes Absolute Auto 0.7 10^3/uL (0.3-0.8); Monocytes Percent Auto 11.2 % (1.7-12.0); Neutrophils Absolute Auto 3.3 10^3/uL (1.4-6.5); Neutrophils Percent Auto 54.4 % (43.0-75.0); Platelet Count 210 10^3/uL (150-450); Red Blood Count 4.05 10^6/uL (4.20-5.40); Red Cell Distribution Width 13.8 % (11.0-15.0)
[2024-01-27 01:11] LABS: Anion Gap 11.7; BUN Creatinine Ratio 15.3; Calcium 9.2 mg/dL (8.5-10.1); Carbon Dioxide 26.6 mmol/L (21.0-32.0); Chloride 107 mmol/L (98-107); Estimated GFR (African America 58 (>=60); Estimated GFR (Non-African Ame 48 (>=60); Glucose 98 mg/dL (74-106); Potassium 3.3 mmol/L (3.5-5.1); Sodium 142 mmol/L (136-145)
[2024-01-27] MEDS: 0.9 % SODIUM CHLORIDE 1,000 ML 999 ML IV (01:22)
[2024-01-27 01:31] VITALS: BP 160/74; PULSE 64; O2SAT 93
[2024-01-27 01:37] LABS: Bilirubin Urine NEGATIVE (NEGATIVE); Blood Urine TRACE-L (NEGATIVE); Clarity Urine CLEAR (CLEAR); Color Urine ORANGE (YELLOW); Glucose Urine UA NEGATIVE (NEGATIVE); Ketones Urine NEGATIVE (NEGATIVE); Leukocyte Esterase Urine MODERATE (NEGATIVE); Nitrite Urine POSITIVE (NEGATIVE); Protein Urine NEGATIVE (NEG/TRACE); Specific Gravity Urine <=1.005 (1.005-1.025)
[2024-01-27 01:44] LABS: Bacteria Urine MODERATE #/HPF (NONE SEEN); Cast Seen? NONE SEEN #/LPF (NONE SEEN); Crystals Seen? None Seen #/HPF (None Seen); Mucus Urine NONE SEEN (NONE SEEN); Squamous Epithelial Cell Urine MODERATE #/LPF (NONE/RARE); Transitional Epi Cells Urine FEW #/LPF (NONE SEEN); WBC Urine 20-50 #/HPF (NONE SEEN)
[2024-01-27 01:45] LABS: Urine Culture Indicated YES
== END 2024-01-27 02:05 | disposition home or self-care (01) ==
PROVIDERS: Emergency Provider Internal Medicine; PCP Internal Medicine
DX: R19.7 Diarrhea, unspecified (principal); F41.9 Anxiety disorder, unspecified; E86.0 Dehydration; R82.90 Unspecified abnormal findings in urine
CPT/HCPCS: 36415; 80048; 81001; 85025; 87086; 99283

== ENCOUNTER 2024-02-23 20:54 | Emergency (ER) | payer MEDICARE, MEDICAID, SELFPAY ==
[2024-02-23] VITALS (20 sets, daily range): BP systolic 141–157; BP diastolic 59–80; PULSE 76; TEMP 36.6; O2SAT 89–97; BMI 25.3
--- OUTSIDE RECORDS SUMMARY | 2024-02-23 21:02 | XMS_ITS | CCD ---
Author Organization [facility] ion Partnership [facility] Care Team Providers Care Group Sales Coordinator Name Role Phone WILIAN, LISET Unavailable Unavailable WILIAN, LISET Unavailable Unavailable SANTANA, ASHUTOSH Unavailable Unavailable MAX, ASHUTOSH Unavailable Unavailable Mary Toure Unavailable MD Ashutosh Santana Primary Care Provider MD Rashard Aguilar Attending Provider [phone] MAX, DR ASHUTOSH Esparza Primary Care Unavailable [...] Max, MD Ashutosh Esparza Primary Care Provider [phone] MD Rashard Aguilar Attending Provider Lidya Almanzar Primary Care Physician [phone] Shayy Garza Unavailable NONE, XXXX Primary Care Physician Unavailab le NO FAMILY, PHYSICIAN Primary Care Provider Unava ilable SUMAN Toure Attending Provider ABIGAIL Garza Attending Provider PILI VELASCO Referring Unavailable SANTANA, ASHUTOSH E Primary Care Unavailable SUMAN Toure Attending Provider MD Rashard Aguilar Attending Provider Mary Toure Admitting Unavailable Mary Toure Attending Unavailable NO FAMILY, PHYSICIAN Primary Care Unavailable Halmiller, Rashard Attending Unavailable Ashutosh Santana Primary Care Unavailable Halsreedhary, Rashard Admitting Unavailable Rashard Aguilar Attending Unavailable Ashutosh Santana Primary Care Unavailable Haladay, Rashard Admitting Unavailable Garza, Shayy L Admitting Unavailable Garza Shayy L Attending Unavailable NO FAMILY, PHYSICIAN Primary Care Unavailable Lauren, Rashard Attending Unavailable NO FAMILY, PHYSICIAN Primary Care Unavailable Haladay, Rashard Admitting Unavailable Garza, Shayy L Admitting Unavailable Garza, Shayy L Attending Unavailable NO FAMILY, PHYSICIAN Primary Care Unavailable Xochitl PIPER, [facility] Primary Care Provider SHAIKH LEUNG Primary Care Physician Gem Contreras [...] Unavailable Franco SCHERER Referring Unavailable Camelia LOW L Admitting Unavailable NONE, XXXX Referring Unavailable Rahul Salas Attending Unavaila Lidya Valerio Referring Unavailable Rahul Salas Attending UnavailTonio San Attending Unavaila ble MICHAEL YOUNG G Attending Unavailable ROSS, LIDYA E Referring Unavailable ROSS, LIDYA E Primary Care Unavailable HANNAH, MICHAEL G Attending Unavailable ROSS, LIDYA E Referring Unavailable ROSS, LIDYA E Primary Care Unavailable HANNAH, MICHAEL G Attending Unavailable ROSS, LIDYA E Referring Unavailable ROSS, LIDYA E Primary Care Unavailable SYDNIE WADSWORTH I Attending Unavailable ROSS, LIDYA E Referring Unavailable ROSS, LIDYA E Primary Care Unavailable JANET GARCIA Attending Unavailable ROSS, LIDYA E Referring Unavailable FAWWAD, DRAKE Primary Care Unavailable FATODDD, DRAKE Attending Unavailable SHAIKH LEUNG Attending Unavailable SERA JENSEN Attending Unavailable SHAIKH LEUNG Attending Unavailable SHAIKH LEUNG Attending Unavailable JOIE FITZGERALD Attending Unavailable SERA JENSEN Attending Unavailable SERA JENSEN Referring Unavailable FATODDD, Attending Unavailable SERA JENSEN Attending Unavailable SERA JENSEN Referring Unavailable FAWELLED, DRAKE Attending Unavailable SHAIKH LEUNG Attending Unavailable DEBBIE GOLDSTEIN Referring Unavailable FAWWAD, DRAKE Primary Care Unavailable ROSS, LIDYA E Primary Care Unavailable YOJANA ROLLINS Attending Unavailable YOJANA ROLLINS Attending Unavailable YOJANA ROLLINS Referring Unavailable ROSS, LIDYA E Primary Care Unavailable MICHAEL YOUNG G Attending Unavailable MICHAEL YOUNG G Referring Unavailable ROSS, LIDYA E Primary Care Unavailable SHAND, DRAKE Referring Unavailable FAWWAD, DRAKE Primary Care Unavailable FAWWAD, DRAKE Primary Care Unavailable GINI CHOW Attending UnavailJAZIEL Banuelos Admitting Unavailab CHELE Hern[employer] Consulting Unavailable CASSIE DIEHL Consulting Unavailable KIM BEAUCHAMP Referring Unavailable FAWWAD, DRAKE Primary Care Unavailable KIM BEAUCHAMP Attending Unavailable KIM BEAUCHAMP Attending Unavailable KIM BEAUCHAMP Referring Unavailable FAWWAD, DRAKE Primary Care Unavailable KIM BEAUCHAMP Attending Unavailable KIM BEAUCHAMP Referring Unavailable FAWWAD, DRAKE Primary Care Unavailable KIM BEAUCHAMP Attending Unavailable KIM BEAUCHAMP Referring Unavailable SHAIKH LEUNG Primary Care Unavailable Allergies Allergy Classification Reported Allergen(s) Allergy Type Date of Onset Reaction(s) Facility (20 sources) prochlorperazine; 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: [compazine] Drug Allergy 12-12-19 12 [facility]OF, throat swelling, unknown [facility] Repository (10 sources) Ciprofloxacin Drug Allergy 05-15-20 20 rash, Unknown [facility] Other (1 source) Levamisole Drug Allergy [facility] Repository (8 sources) atorvastatin; 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: [atorvastatin] Drug Allergy unknown [facility] (12 sources) Solifenacin; 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: [solifenacin] Drug Allergy 04-04-20 22 Unknown [facility] (1 source) Ciprofloxacin Drug Allergy 08-17-20 23 [facility] Repository (4 sources) Prochlorperazine; 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: [PROCHLORPERAZINE] Drug Allergy 01-04-20 17 [facility] Repository (1 source) atorvastatin Drug Allergy 08-24-19 24 Other [facility] Healthcare (4 sources) busPIRone; 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: [BUSPIRONE] Drug Allergy 11-17-19 22 Unknown [facility] Healthcare (4 sources) Nitrofurantoin; 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: [NITROFURANTOIN MACROCRYSTAL] Drug Allergy 01-04-20 17 [facility] Healthcare (1 source) Nitrofurantoin Drug Allergy 10-17-19 17 [facility] Healthcare (1 source) Prochlorperazine Drug Allergy 09-29-19 07 Anaphylaxis, GI intolerance, Other, Swelling, Unknown [facility] Healthcare (3 sources) Ciprofloxacin; 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: [CIPROFLOXACIN HCL] Drug Allergy 01-04-20 17 [facility] Repository (2 sources) fentaNYL; 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: [FENTANYL] Drug Allergy 02-16-20 [facility] Repository Medications Current Medications Medication Drug Class(es) Dates Sig (Normalized) Sig (Original) acetaminophen 325 mg / HYDROcodone bitartrate 5 mg oral tablet (8 sources) Opioid Agonist Start: 06-22-2023 acetaminophen-hydr ocodone 325 mg-5 mg oral tablet 1 tab(s), Oral, q6hr, 90 tab(s), Refill(s) 0, [facility] #[id number], 167, cm, 06/22/23 15:56:00 EDT, Height/Length Dosing, 75.7, kg, 06/22/23 15:56:00 EDT, Weight Dosing Start Date: 06/22/23 Status: Ordered Start: 05-30-2023 acetaminophen- hydrocodone 325 mg-5 mg oral tablet 1 tab(s), Oral, q6hr, 90 tab(s), Refill(s) 0, [facility] #[id number], 167, cm, 05/30/23 14:35:00 EDT, Height/Length Dosing, 77.1, kg, 05/30/23 14:35:00 EDT, Weight Dosing Start Date: 05/30/23 Status: Ordered Start: 03-10-2023 acetaminophen- hydrocodone 325 mg-5 mg oral tablet 1 tab(s), Oral, q6hr, 90 tab(s), Refill(s) 0, [facility] #[id number], 167, cm, 12/20/22 16:33:00 EDT, Height/Length Dosing, 82, kg, 12/20/22 16:33:00 EDT, Weight Dosing Start Date: 03/10/23 Status: Ordered take 1 tablet by theo th in the morning, then take 1 tablet by mouth in the evening, then take 1 tablet by mouth at bedtime HYDROcodone-acetaminophen ([place]) 5-325 MG tablet Take 1 tablet by [...] anxiety, # 10 tab(s), Refills(s) 0, Pharmacy: [facility] #[id number], 167, cm, 05/25/23 15:36:00 EDT, Height/Length Dosing, 76.6, kg, 05/25/23 15:36:00 EDT, Weight Dosing Start Date: 05/29/23 Status: Ordered Start: 04-25-2023 take 1 tablet by theo th three times daily as needed for anxiety alprazolam 0.5 mg Tab 0.5 mg = 1 tab(s), Oral, TID, PRN for anxiety, # 30 tab(s), Refills(s) 0, [facility] #[id number], 167, cm, 04/20/23 14:55:00 EDT, Height/Length Dosing, 78.6, kg, 04/20/23 14:55:00 EDT, Weight Dosing Start Date: 04/25/23 Status: Ordered Start: 03-28-2023 take 1 tablet by theo th three times daily as needed for anxiety alprazolam 0.5 mg Tab 0.5 mg = 1 tab(s), Oral, TID, PRN for anxiety, # 30 tab(s), Refills(s) 0, [facility] #[id number], 167, cm, 03/28/23 13:02:00 EDT, Height/Length Dosing, [...] BID, # 60 tab(s), Refills(s) 3, Pharmacy: [facility] #[id number], 170, cm, 08/15/23 14:27:00 EST, Height/Length Dosing, [...] elías, Rectal, TID, 10 gram, Refill(s) 0, [facility] #[id number], 167, cm, 03/20/23 11:45:00 EDT, Height/Length Dosing, [...] QID, # 60 tab(s), Refills(s) 1, Pharmacy: [facility] #[id number], 167, cm, 06/01/23 14:55:00 EDT, Height/Length Dosing, 77, kg, 06/01/23 15:07:00 EDT, Weight Dosing Start Date: 06/07/23 Status: Ordered Start: 11-01-2022 take 1 tablet by theo four times daily hyoscyamine 0.125 mg oral [...] qAM, # 30 tab(s), Refills(s) 6, Pharmacy: [facility] #[id number], 167, cm, 05/25/23 15:36:00 EDT, Height/Length Dosing, 76.6, kg, 05/25/23 15:36:00 EDT, Weight Dosing Start Date: 05/26/23 Status: Ordered levothyroxine sodium 0.1 mg oral tablet (17 sources) l-Thyroxine Start: 11-30-2022 take 1 tablet by mouth once daily levothyroxine 100 mcg (0.1 mg) Tab 100 mcg = 1 tab(s), Oral, Daily, # 90 tab(s), Refills(s) 3, Pharmacy: [facility] #[id number], 167.4, cm, 11/02/22 15:26:00 EDT, Height/Length Dosing, [...] Daily, # 30 tab(s), Refills(s) 3, Pharmacy: [facility] #[id number], 170, cm, 08/15/23 14:27:00 EST, Height/Length Dosing, [...] day(s), # 21 tab(s), Refills(s) 0, Pharmacy: [facility] #[id number], 167, cm, 04/20/23 14:55:00 EDT, Height/Length Dosing, [...] q8hr, # 10 tab(s), Refills(s) 1, Pharmacy: [facility] #[id number], 167, cm, 06/01/23 14:55:00 EDT, Height/Length Dosing, [...] 0 Start Date: 11/01/22 Status: Ordered YAMILKA (12 sources) Start: 05-03-2023 YAMILKA PRATHER, See [...] Coronary arteriosclerosis; 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: [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] Onset: 4 04-17-2023 Chronic Deficiency and other anemia (7 sources) Anemia 11-01-2022 Episodic Disorders of lipid metabolism (8 sources) Pure hypercholesterolemia; 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: [Hyperlipidemia] Onset: 4 11-01-2022 Chronic E Codes: Fall (1 source) Unspecified fall, initial encounter; 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: [Unspecified fall, initial encounter] Onset: 4 Episodic E Codes: Fall (1 source) Fall Onset: 4 Esophageal disorders (1 source) Gastroesophageal reflux disease; 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: [Gastro-esophageal reflux disease without esophagitis] Onset: 4 09-05-2023 Chronic Essential hypertension (8 sources) Essential hypertension; 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: [Hypertensive disorder] Onset: 4 11-01-2022 Chronic Fracture of neck of femur (hip) (1 source) Fracture of unspecified part of neck of left femur, initial encounter for closed fracture; 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: [Fracture of unspecified part of neck of left femur, initial encounter for closed fracture] Onset: 4 Episodic Genitourinary congenital anomalies (2 sources) Congenital hydronephrosis; 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] Onset: 4 Chronic Genitourinary symptoms and ill-defined conditions (1 source) Urge incontinence; 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: [Urge incontinence] Onset: 4 Chronic Genitourinary symptoms and ill-defined conditions (11 sources) Frequency of micturition; 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: [Dysuria] Onset: 2 Resolved: 2 Episodic Hemorrhoids (7 sources) Hemorrhoids 03-20-2023 Episodic Mood disorders (7 sources) Depressive disorder; 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: [Single episode of major depression in full remission] 12-20-2022 Chronic Nausea and vomiting (1 source) Nausea; 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: [Nausea] 09-27-2023 Episodic Nonspecific chest pain (1 source) Chest pain, unspecified; 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: [Chest pain, unspecified] Onset: 4 Episodic Nutritional deficiencies (8 sources) Disorder of vitamin D; 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: [Vitamin D deficiency] Onset: 4 11-01-2022 Chronic Osteoarthritis (8 sources) Osteoarthritis of knee; 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: [Osteoarthritis] Onset: 4 11-01-2022 Chronic Comment on above: Left knee Chronic Osteoporosis (7 sources) Primary osteoporosis 11-01-2022 Chronic Other aftercare (1 source) Long-term current use of opiate analgesic drug; 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: [senior care (current) use of opiate analgesic] Onset: 4 09-05-2023 Episodic Other connective tissue disease (7 sources) Impingement syndrome of shoulder region 11-01-2022 Episodic Other connective tissue disease (7 sources) Primary fibromyalgia syndrome 11-01-2022 Episodic Other connective tissue disease (1 source) Fibromyalgia; 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: [Fibromyalgia] Onset: 4 09-05-2023 Episodic Other gastrointestinal disorders (8 sources) Irritable bowel syndrome Onset: 4 11-01-2022 Chronic Other gastrointestinal disorders (1 source) [...] erythematosus] Onset: 4 09-05-2023 Chronic Thyroid disorders (13 sources) Hypothyroidism, unspecified; 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: [Hypothyroidism] Onset: 3 [...] Test Name Value Interpretation Reference Range Facility CBC AND AUTO DIFFon 02-19-20 24 ABSOLUTE BASOPHIL 0.0 X10E9/L Normal 0.0-0.2 [facility] Comment on above: Performed By: #### U A #### [facility] ([id number]) [address], [facility] [address] [place] [address] ABSOLUTE NEUTROPHIL 4.3 X10E9/L Normal 1.5-6.6 [facility] Comment on above: Performed By: #### U A #### [facility] ([id number]) [address] [address] [place] [address] Basophils/100 WBC (Bld) 0.7 % Normal [facility] Comment on above: Performed By: #### U A #### [facility] ([id number]) [address] [address] [place] [address] Eosinophils (Bld) [#/Vol] 0.4 10*3/uL Normal 0.0-0.4 [facility] Comment on above: Performed By: #### U A #### [facility] ([id number]) [address] [place] [address] Eosinophils/100 WBC (Bld) 6.5 % Normal [facility] Comment on above: Performed By: #### U A #### [facility] ([id number]) [address] [address] [place] [address] Erythrocyte distribution width (RBC) [Ratio] 15.9 % High 11.5-15.0 [facility] Comment on above: Performed By: #### U A #### [facility] ([id number]) [address] [address] [place] [address] Hematocrit (Bld) [Volume fraction] 29.6 % Low 35-47 [facility] Comment on above: Performed By: #### U A #### [facility] ([id number]) [address], [address] [place] [address] Hemoglobin (Bld) [Mass/Vol] 9.9 g/dL Low 11.7-15.5 [facility] Comment on above: Performed By: #### U A #### [facility] ([id number]) [address], [address] [place] [address] Lymphocytes (Bld) [#/Vol] 1.3 10*3/uL Normal 1.0-3.5 [facility] Comment on above: Performed By: #### U A #### [facility] ([id number]) [address] [place] [address] Lymphocytes/100 WBC (Bld) 19.6 % Normal [facility] Comment on above: Performed By: #### U A #### [facility] ([id number]) [address], [address] [place] [address] MCH (RBC) [Entitic mass] 31.3 pg Normal 27-34 [facility] Comment on above: Performed By: #### U A #### [facility] ([id number]) [address], [address] [place] [address] MCHC (RBC) [Mass/Vol] 33.5 g/dL Normal 32-36 [facility] Comment on above: Performed By: #### U A #### [facility] ([id number]) [address] [place] [address] MCV (RBC) [Entitic vol] 94 fL Normal 80-100 [facility] Comment on above: Performed By: #### U A #### [facility] ([id number]) [address], [address] [place] [address] Monocytes (Bld) [#/Vol] 0.7 10*3/uL Normal 0-0.9 [facility] Comment on above: Performed By: #### U A #### [facility] ([id number]) [address], [address] [place] [address] Monocytes/100 WBC (Bld) 10.5 % Normal [facility] Comment on above: Performed By: #### U A #### [facility] ([id number]) [address], [facility] [address] [place] [address] Neutrophils/100 WBC (Bld) 62.7 % Normal [facility] Comment on above: Performed By: #### U A #### [facility] ([id number]) [address] [address] [place] [address] Platelet mean volume (Bld) [Entitic vol] 7.7 fL Normal 7-12 [facility] Comment on above: Performed By: #### U A #### [facility] ([id number]) [address], [facility] [address] [place] [address] Platelets (Bld) [#/Vol] 216 10*3/uL Normal 150-450 [facility] Comment on above: Performed By: #### U A #### [facility] ([id number]) [address] [address] [place] [address] RBC COUNT 3.16 X10E12/L Low 3.80-5.20 [facility] Comment on above: Performed By: #### U A #### [facility] ([id number]) [address] [address] [place] [address] WBC (Bld) [#/Vol] 6.8 10*3/uL Normal 4.0-11.0 [facility] Comment on above: Performed By: #### U A #### [facility] ([id number]) [address] [address] [place] [address] FERRITINon 02-19-2024 Ferritin [Mass/Vol] 169 ng/mL Normal 11-307 [facility] Comment on above: Performed By: #### [place] OLIVEIRA, CMP, 22842-9 #### [facility] ([id number]) [address] [place] [address] IRON PROFILEon 02-19-2024 Iron [Mass/Vol] 16 ug/dL Low 50-170 [facility] Comment on above: Performed By: #### [place] OLIVEIRA, CMP, 90848-3 #### [facility] ([id number]) [address] [place] [address] IRON BINDING 220 ug/dL Low 250-425 [facility] Comment on above: Performed By: #### [place] OLIVEIRA, CMP, 36976-6 #### [facility] ([id number]) [address] [place] [address] IRON SATURATION 7 % SATURATION Low 15-50 [facility] Comment on above: Performed By: #### [place] OLIVEIRA, CMP, 24026-9 #### [facility] ([id number]) [address] [place] [address] MAGNESIUMon 02-19-2024 Magnesium [Mass/Vol] 1.8 mg/dL Normal 1.8-2.6 [facility] Comment on above: Performed By: #### [place] OLIVEIRA, CMP, 82571-1 #### [facility] ([id number]) [address] [place] [address] AMMONIAon 02-18-2024 Ammonia (P) [Moles/Vol] 10 umol/L Low 11-35 [facility] Comment on above: Performed By: #### U A #### [facility] ([id number]) [address] [facility] [facility] [facility] [place] [address] BLOOD CULTUREon 02-18-2024 Bacteria identified Aer cx Nom (Bld) SPECIMEN NOTES PENDING CULTURE RESULTS NO GROWTH 4 DAYS Normal [facility] CBC AND AUTO DIFFon 02-18-20 ABSOLUTE BASOPHIL 0.0 X10E9/L Normal 0.0-0.2 [facility] Comment on above: Performed By: #### T SHR #### [facility] ([id number]) [address], [address] [place] [address] ABSOLUTE NEUTROPHIL 6.1 X10E9/L Normal 1.5-6.6 [facility] Comment on above: Performed By: #### T SHR #### [facility] ([id number]) [address] [place] [address] Basophils/100 WBC (Bld) 0.4 % Normal [facility] Comment on above: Performed By: #### T SHR #### [facility] ([id number]) [address] [facility] [address] [place] [address] Eosinophils (Bld) [#/Vol] 0.2 10*3/uL Normal 0.0-0.4 [facility] Comment on above: Performed By: #### T SHR #### [facility] ([id number]) [address], [address] [place] [address] Eosinophils/100 WBC (Bld) 2.9 % Normal [facility] Comment on above: Performed By: #### T SHR #### [facility] ([id number]) [address], [address] [place] [address] Erythrocyte distribution width (RBC) [Ratio] 15.6 % High 11.5-15.0 [facility] Comment on above: Performed By: #### T SHR #### [facility] ([id number]) [address] [facility] [address] [place] [address] Hematocrit (Bld) [Volume fraction] 29.3 % Low 35-47 [facility] Comment on above: Performed By: #### T SHR #### [facility] ([id number]) [address], [address] [place] [address] Hemoglobin (Bld) [Mass/Vol] 9.8 g/dL Low 11.7-15.5 [facility] Comment on above: Performed By: #### T SHR #### [facility] ([id number]) [address], [address] [place] [address] Lymphocytes (Bld) [#/Vol] 1.2 10*3/uL Normal 1.0-3.5 [facility] Comment on above: Performed By: #### T SHR #### [facility] ([id number]) [address], [address] [place] [address] Lymphocytes/100 WBC (Bld) 14.3 % Normal [facility] Comment on above: Performed By: #### T SHR #### [facility] ([id number]) [address], [address] [place] [address] MCH (RBC) [Entitic mass] 31.5 pg Normal 27-34 [facility] Comment on above: Performed By: #### T SHR #### [facility] ([id number]) [address], [address] [place] [address] MCHC (RBC) [Mass/Vol] 33.5 g/dL Normal 32-36 [facility] Comment on above: Performed By: #### T SHR #### [facility] ([id number]) [address], [address] [place] [address] MCV (RBC) [Entitic vol] 94 fL Normal 80-100 [facility] Comment on above: Performed By: #### T SHR #### [facility] ([id number]) [address], [address] [place] [address] Monocytes (Bld) [#/Vol] 0.8 10*3/uL Normal 0-0.9 [facility] Comment on above: Performed By: #### T SHR #### [facility] ([id number]) [address], [address] [place] [address] Monocytes/100 WBC (Bld) 9.4 % Normal [facility] Comment on above: Performed By: #### T SHR #### [facility] ([id number]) [address] [place] [address] Neutrophils/100 WBC (Bld) 73.0 % Normal [facility] Comment on above: Performed By: #### T SHR #### [facility] ([id number]) [address], [address] [place] [address] Platelet mean volume (Bld) [Entitic vol] 7.8 fL Normal 7-12 [facility] Comment on above: Performed By: #### T SHR #### [facility] ([id number]) [address], [address] [place] [address] Platelets (Bld) [#/Vol] 182 10*3/uL Normal 150-450 [facility] Comment on above: Performed By: #### T SHR #### [facility] ([id number]) [address] [place] [address] RBC COUNT 3.12 X10E12/L Low 3.80-5.20 [facility] Comment on above: Performed By: #### T SHR #### [facility] ([id number]) [address], [address] [place] [address] WBC (Bld) [#/Vol] 8.3 10*3/uL Normal 4.0-11.0 [facility] Comment on above: Performed By: #### T SHR #### [facility] ([id number]) [address], [address] [place] [address] COMPREHENSIVE METABOLIC PANE Ricardo 02-18-2024 Albumin [Mass/Vol] 2.9 g/dL Low 3.2-5.3 [facility] Comment on above: Performed By: #### T SHR #### [facility] ([id number]) [address], [address] [place] [address] ALP [Catalytic activity/Vol] 63 U/L Normal 39-130 [facility] Comment on above: Performed By: #### T SHR #### [facility] ([id number]) [address], [address] [place] [address] ALT [Catalytic activity/Vol] 24 U/L Normal 0-31 [facility] Comment on above: Performed By: #### T SHR #### [facility] ([id number]) [address], [address] [place] [address] Anion gap [Moles/Vol] 7 mmol/L Normal 5-15 [facility] Comment on above: Performed By: #### T SHR #### [facility] ([id number]) [address], [address] [place] [address] AST [Catalytic activity/Vol] 31 U/L Normal 0-41 [facility] Comment on above: Performed By: #### T SHR #### [facility] ([id number]) [address], [address] [place] [address] Bilirubin [Mass/Vol] 0.7 mg/dL Normal 0.3-1.2 [facility] Comment on above: Performed By: #### T SHR #### [facility] ([id number]) [address], [address] [place] [address] Calcium [Mass/Vol] 7.8 mg/dL Low 8.5-10.5 [facility] Comment on above: Performed By: #### T SHR #### [facility] ([id number]) [address], [address] [place] [address] Chloride [Moles/Vol] 104 mmol/L Normal 98-109 [facility] Comment on above: Performed By: #### T SHR #### [facility] ([id number]) [address], [address] [place] [address] CO2 [Moles/Vol] 24 mmol/L Normal 22-32 [facility] Comment on above: Performed By: #### T SHR #### [facility] ([id number]) [address] [facility] [address] [place] [address] Creatinine [Mass/Vol] 0.83 mg/dL Normal 0.40-1.00 [facility] Comment on above: Result Comment: METH OD TRACEABLE TO IDMS STANDARD Performed By: #### T SHR #### [facility] ([id number]) [address] [place] [address] GFR/1.73 sq M.predicted among non-blacks MDRD (S/P/Bld) [Vol rate/Area] 72 mL/min/{1.73_m2} Normal >59 [facility] Comment on above: Result Comment: Reported eGFR is based on the CKD-EPI 2020 equation that does not use a race coefficient. Performed By: #### T SHR #### [facility] ([id number]) [address], [address] [place] [address] Glucose [Mass/Vol] 100 mg/dL High 65-99 [facility] Comment on above: Performed By: #### T SHR #### [facility] ([id number]) [address] [place] [address] Potassium [Moles/Vol] 3.5 mmol/L Normal 3.5-5.0 [facility] Comment on above: Performed By: #### T SHR #### [facility] ([id number]) [address] [place] [address] Protein [Mass/Vol] 5.3 g/dL Low 6.0-8.0 [facility] Comment on above: Performed By: #### T SHR #### [facility] ([id number]) [address] [place] [address] Sodium [Moles/Vol] 135 mmol/L Normal 134-146 [facility] Comment on above: Performed By: #### T SHR #### [facility] ([id number]) [address] [place] [address] Urea nitrogen [Mass/Vol] 18 mg/dL Normal 5-27 [facility] Comment on above: Performed By: #### T SHR #### [facility] ([id number]) [address] [place] [address] CT BRAIN WO CONTon CT BRAIN WO CONT CT BRAIN WO CONT CT BRAIN WO CONT INDICATION: Transient alteration of awareness. TECHNIQUE: CT of the head without intravenous contrast. Reviewed in brain, bone, and soft tissue windows. COMPARISON: None. FINDINGS: Within limits of slight motion degradation: No intracranial hemorrhage. Scattered periventricular and deep cortical white matter areas of low attenuation, likely representing sequelae of chronic microangiopathy. No territorial loss of hamilton-white differentiation. Diffuse cerebral volume loss with appropriate size and morphology of the ventricular system. No extra-axial fluid collections or shift of midline structures. Patent basal cisterns. No depressed or displaced calvarial fracture. IMPRESSION: 1. No acute intracranial abnormality. 2. Senescent changes including cerebral volume loss and sequelae of chronic microangiopathy. 3. If there is sufficient clinical concern for acute ischemia or an occult abnormality, further evaluation with brain MRI is recommended. All CT scans at this facility use dose modulation, iterative reconstruction, and/or weight based dosing when appropriate to reduce radiation dose to as low as reasonably achievable. Finalized by Jefferson Freedman MD on 02/18/2024 2:24 PM Normal [facility] Folate [Mass/Vol]on 02-18-20 FOLIC ACID 21.9 ng/mL Normal >5.8 [facility] Comment on above: Result Comment: NEW REFERENCE RANGE Performed By: #### U A #### [facility] ([id number]) [address], [address] [place] [address] Lactate (P marcus) [Moles/Vol]o n 02-18-2024 LACTATE W/REFLEX 1.3 mmol/L Normal 0.4-2.0 [facility] Comment on above: Result Comment: Result did not trigger repeat Lactate, re-order if needed. Performed By: #### U A #### [facility] ([id number]) [address], [address] [place] [address] MAGNESIUMon 02-18-2024 Magnesium [Mass/Vol] 2.0 mg/dL Normal 1.8-2.6 [facility] Comment on above: Performed By: #### T SHR #### [facility] ([id number]) [address], [address] [place] [address] Troponin I.cardiac High sens itivity method [Mass/Vol]on 02-18-2024 1 HOUR TROP I, HIGH SENSITIVITY 66 ng/L High <16 [facility] Comment on above: Result Comment: Elevations of hs-Troponin may be due to causes other than myocardial ischemia. Recommend serial hs-Troponin testing be performed. For the initial evaluation and management of chest pain patients, refer to the algorithms linked below. Emergency Patient: [email or web address] uh=[email or web address] Inpatient: [email or web address] uh=[email or web address] Performed By: #### U A #### [facility] ([id number]) [address], [address] [place] [address] TROPONIN I, HIGH SENSITIVITY 70 ng/L High <16 [facility] Comment on above: Result Comment: Elevations of hs-Troponin may be due to causes other than myocardial ischemia. Recommend serial hs-Troponin testing be performed. For the initial evaluation and management of chest pain patients, refer to the algorithms linked below. Emergency Patient: [email or web address] uh=[email or web address] Inpatient: [email or web address] uh=acaea Performed By: #### U A #### [facility] ([id number]) [address], [address] [place] [address] URINALYSISon 02-18-2024 Bilirubin Ql (U) Negative Normal NEG [facility] Comment on above: Performed By: #### U A #### [facility] ([id number]) [address], [address] [place] [address] BLOOD/HGB MODERATE Abnormal NEG [facility] Comment on above: Performed By: #### U A #### [facility] ([id number]) [address], [address] [place] [address] Color (U) YELLOW Normal YELLOW [facility] Comment on above: Performed By: #### U A #### [facility] ([id number]) [address], [address] [place] [address] Glucose Ql (U) Negative Normal NEG [facility] Comment on above: Performed By: #### U A #### [facility] ([id number]) [address], [address] [place] [address] Ketones Ql (U) Trace Abnormal NEG [facility] Comment on above: Performed By: #### U A #### [facility] ([id number]) [address], [address] [place] [address] Leukocyte esterase Test strip Ql (U) MODERATE Abnormal NEG [facility] Comment on above: Performed By: #### U A #### [facility] ([id number]) [address] [place] [address] Nitrite Ql (U) Negative Normal NEG [facility] Comment on above: Performed By: #### U A #### [facility] ([id number]) [address] [place] [address] pH (U) 6.0 [pH] Normal 5.0-8.5 [facility] Comment on above: Performed By: #### U A #### [facility] ([id number]) [address] [facility] [address] [place] [address] Protein Ql (U) 30 mg/dL Abnormal NEG [facility] Comment on above: Performed By: #### U A #### [facility] ([id number]) [address] [facility] [address] [place] [address] R.B.CELLS 10 /hpf High 0-5 [facility] Comment on above: Performed By: #### U A #### [facility] ([id number]) [address] [address] [place] [address] Specific gravity (U) [Rel density] 1.020 Normal 1.003-1.035 [facility] Comment on above: Performed By: #### U A #### [facility] ([id number]) [address] [place] [address] SQUAMOUS EPITHELIUM 40 /hpf High 0-5 [facility] Comment on above: Performed By: #### U A #### [facility] ([id number]) [facility] [address] [place] [address] TRANSITIONAL EPITH 2 /hpf High 0 [facility] Comment on above: Performed By: #### U A #### [facility] ([id number]) [address] [facility] [facility] [address] [place] [address] TURBIDITY CLOUDY Abnormal CLEAR [facility] Comment on above: Performed By: #### U A #### [facility] ([id number]) [address] [address] Urinalysis dipstick W Reflex Microscopic panel (U) URINE RECEIVED WITHOUT PRESERVATIVE-DELAYS IN TRANSPORT MAY AFFECT RESULTS.INTERPRET WITH CAUTION AND CLINICAL CORRELATION IS RECOMMENDED. Normal [facility] Comment on above: Performed By: #### U A #### [facility] ([id number]) [address] [address] Urobilinogen Qn (U) 0.2 {Maren'U}/dL Normal <1.1 [facility] Comment on above: Performed By: #### U A #### [facility] ([id number]) [address] [address] W.B.CELLS 80 /hpf High 0-5 [facility] Comment on above: Performed By: #### U A #### [facility] ([id number]) [address] [address] VENOUS BLOOD GASon 4 RHYS'S TEST Normal [facility] Comment on above: Performed By: #### U A #### [facility] ([id number]) [address] [address] Base excess Calc (Bld) [Moles/Vol] 2.0 mmol/L Normal 0.0-2.0 [facility] Comment on above: Performed By: #### U A #### [facility] ([id number]) [address] [address] Body temperature 98.6 [degF] Normal 37.0 [facility] Comment on above: Performed By: #### U A #### [facility] ([id number]) [address] [place] [address] HCO3 (Bld) [Moles/Vol] 27.7 mmol/L High 20.0-24.0 [facility] Comment on above: Performed By: #### U A #### [facility] ([id number]) [address] [place] [address] INSP. O2 CONC. 21 % Normal [facility] Comment on above: Performed By: #### U A #### [facility] ([id number]) [address] [place] [address] Oxygen saturation in Blood 38.0 % Low >80.0 [facility] Comment on above: Performed By: #### U A #### [facility] ([id number]) [address] [place] [address] OXYGEN SOURCE RoomAir Normal [facility] Comment on above: Performed By: #### U A #### [facility] ([id number]) [address] [place] [address] PCO2, VENOUS 46.9 MMHG Normal 35-50 [facility] Comment on above: Performed By: #### U A #### [facility] ([id number]) [address] [place] [address] PH, VENOUS 7.379 Normal 7.320-7.420 [facility] Comment on above: Performed By: #### U A #### [facility] ([id number]) [address] [place] [address] PO2, VENOUS 23 MMHG Low 30-50 [facility] Comment on above: Performed By: #### U A #### [facility] ([id number]) [address] [place] [address] SAMPLE SITE N/A Normal [facility] Comment on above: Performed By: #### U A #### [facility] ([id number]) [address] [place] [address] SAMPLE TYPE VENOUS Normal [facility] Comment on above: Performed By: #### U A #### [facility] ([id number]) [address] [place] [address] VITAMIN B12on 02-18-2024 Cobalamin (Vitamin B12) [Mass/Vol] 962 pg/mL High 180-914 [facility] Comment on above: Performed By: #### U A #### [facility] ([id number]) [address] [place] [address] CBC AND AUTO DIFFon 02-17-20 ABSOLUTE BASOPHIL 0.0 X10E9/L Normal 0.0-0.2 [facility] Comment on above: Performed By: #### C TEE CMP, 82457-0 ####[facility] ([id number])[address] [place] [address] ABSOLUTE NEUTROPHIL 6.4 X10E9/L Normal 1.5-6.6 [facility] Comment on above: Performed By: #### [place] OLIVEIRA, CMP, 86865-0 ####[facility] ([id number])[address] [place] [address] Basophils/100 WBC (Bld) 0.3 % Normal [facility] Comment on above: Performed By: #### C TEE, CMP, 25508-0 ####[facility] ([id number])[address] [place] [address] Eosinophils (Bld) [#/Vol] 0.2 10*3/uL Normal 0.0-0.4 [facility] Comment on above: Performed By: #### [place] OLIVEIRA, CMP, 98596-2 ####[facility] ([id number])[address] [place] [address] Eosinophils/100 WBC (Bld) 2.0 % Normal [facility] Comment on above: Performed By: #### [place] [facility], ####[facility] ([id number])[address] [place] [address] Erythrocyte distribution width (RBC) [Ratio] 15.4 % High 11.5-15.0 [facility] Comment on above: Performed By: #### [place] [facility], ####[facility] ([id number])[address] [place] [address] Hematocrit (Bld) [Volume fraction] 31.4 % Low 35-47 [facility] Comment on above: Performed By: #### [place] OLIVEIRA CMP, ####[facility] ([id number])[address] [place] [address] Hemoglobin (Bld) [Mass/Vol] 10.5 g/dL Low 11.7-15.5 [facility] Comment on above: Performed By: #### [place] [facility], ####[facility] ([id number])[address] [place] [address] Lymphocytes (Bld) [#/Vol] 1.2 10*3/uL Normal 1.0-3.5 [facility] Comment on above: Performed By: #### [place] OLIVEIRA CMP, ####[facility] ([id number])[address] [place] [address] Lymphocytes/100 WBC (Bld) 14.4 % Normal [facility] Comment on above: Performed By: #### [place] OLIVEIRA CMP, ####[facility] ([id number])[address] [place] [address] MCH (RBC) [Entitic mass] 31.5 pg Normal 27-34 [facility] Comment on above: Performed By: #### [place] OLIVEIRA CMP, ####[facility] ([id number])[address] [place] [address] MCHC (RBC) [Mass/Vol] 33.2 g/dL Normal 32-36 [facility] Comment on above: Performed By: #### [place] OLIVEIRA CMP, ####[facility] ([id number])[address] [place] [address] MCV (RBC) [Entitic vol] 95 fL Normal 80-100 [facility] Comment on above: Performed By: #### [place] OLIVEIRA CMP, ####[facility] ([id number])[address] [place] [address] Monocytes (Bld) [#/Vol] 0.7 10*3/uL Normal 0-0.9 [facility] Comment on above: Performed By: #### [place] OLIVEIRA CMP, ####[facility] ([id number])[address] [place] [address] Monocytes/100 WBC (Bld) 8.5 % Normal [facility] Comment on above: Performed By: #### [place] OLIVEIRA CMP, ####[facility] ([id number])[address] [place] [address] Neutrophils/100 WBC (Bld) 74.8 % Normal [facility] Comment on above: Performed By: #### [place] OLIVEIRA CMP, ####[facility] ([id number])[address] [place] [address] Platelet mean volume (Bld) [Entitic vol] 7.6 fL Normal 7-12 [facility] Comment on above: Performed By: #### [place] OLIVEIRA CMP, ####[facility] ([id number])[address] [place] [address] Platelets (Bld) [#/Vol] 164 10*3/uL Normal 150-450 [facility] Comment on above: Performed By: #### C BCA, CMP, 37591-6 ####[facility] ([id number])[address] [place] [address] RBC COUNT 3.31 X10E12/L Low 3.80-5.20 [facility] Comment on above: Performed By: #### C BCA, CMP, 24036-5 ####[facility] ([id number])[address] [place] [address] WBC (Bld) [#/Vol] 8.5 10*3/uL Normal 4.0-11.0 [facility] Comment on above: Performed By: #### C BCA, CMP, 38266-9 ####[facility] ([id number])[address] [place] [address] COMPREHENSIVE METABOLIC PANE Ricardo 02-17-2024 Albumin [Mass/Vol] 2.8 g/dL Low 3.2-5.3 [facility] Comment on above: Performed By: #### T SHR #### [facility] ([id number]) [address] [address] [facility] [address] [place] [address] ALP [Catalytic activity/Vol] 80 U/L Normal 39-130 [facility] Comment on above: Performed By: #### T SHR #### [facility] ([id number]) [address] [facility], [address] [place] [address] ALT [Catalytic activity/Vol] 34 U/L High 0-31 [facility] Comment on above: Performed By: #### T SHR #### [facility] ([id number]) [address] [facility], [address] [place] [address] Anion gap [Moles/Vol] 7 mmol/L Normal 5-15 [facility] Comment on above: Performed By: #### T SHR #### [facility] ([id number]) [address] [place] [address] AST [Catalytic activity/Vol] 53 U/L High 0-41 [facility] Comment on above: Performed By: #### T SHR #### [facility] ([id number]) [address] [place] [address] Bilirubin [Mass/Vol] 0.9 mg/dL Normal 0.3-1.2 [facility] Comment on above: Performed By: #### T SHR #### [facility] ([id number]) [address] [place] [address] Calcium [Mass/Vol] 7.8 mg/dL Low 8.5-10.5 [facility] Comment on above: Performed By: #### T SHR #### [facility] ([id number]) [address] [place] [address] Chloride [Moles/Vol] 105 mmol/L Normal 98-109 [facility] Comment on above: Performed By: #### T SHR #### [facility] ([id number]) [address], [address] [place] [address] CO2 [Moles/Vol] 24 mmol/L Normal 22-32 [facility] Comment on above: Performed By: #### T SHR #### [facility] ([id number]) [address], [address] [place] [address] Creatinine [Mass/Vol] 0.78 mg/dL Normal 0.40-1.00 [facility] Comment on above: Result Comment: METH OD TRACEABLE TO IDMS STANDARD Performed By: #### T SHR #### [facility] ([id number]) [address], [address] [place] [address] GFR/1.73 sq M.predicted among non-blacks MDRD (S/P/Bld) [Vol rate/Area] 78 mL/min/{1.73_m2} Normal >59 [facility] Comment on above: Result Comment: Reported eGFR is based on the CKD-EPI 2020 equation that does not use a race coefficient. Performed By: #### T SHR #### [facility] ([id number]) [address], [address] [place] [address] Glucose [Mass/Vol] 76 mg/dL Normal 65-99 [facility] Comment on above: Performed By: #### T SHR #### [facility] ([id number]) [address] [place] [address] Potassium [Moles/Vol] 3.4 mmol/L Low 3.5-5.0 [facility] Comment on above: Performed By: #### T SHR #### [facility] ([id number]) [address], [address] [place] [address] Protein [Mass/Vol] 5.3 g/dL Low 6.0-8.0 [facility] Comment on above: Performed By: #### T SHR #### [facility] ([id number]) [address], [address] [place] [address] Sodium [Moles/Vol] 136 mmol/L Normal 134-146 [facility] Comment on above: Performed By: #### T SHR #### [facility] ([id number]) [address] [place] [address] Urea nitrogen [Mass/Vol] 18 mg/dL Normal 5-27 [facility] Comment on above: Performed By: #### T SHR #### [facility] ([id number]) [address] [place] [address] MAGNESIUMon 02-17-2024 Magnesium [Mass/Vol] 2.2 mg/dL Normal 1.8-2.6 [facility] Comment on above: Performed By: #### T SHR #### [facility] ([id number]) [address] [place] [address] Magnesium [Mass/Vol] 1.7 mg/dL Low 1.8-2.6 [facility] Comment on above: Performed By: #### T SHR #### [facility] ([id number]) [address] [place] [address] POTASSIUMon 02-17-2024 Potassium [Moles/Vol] 3.9 mmol/L Normal 3.5-5.0 [facility] Comment on above: Performed By: #### T SHR #### [facility] ([id number]) [address], [address] [place] [address] Vitamin D+Metabolites [Mass/ Vol]on 02-17-2024 VITAMIN D 25 HYD TOT 19.7 ng/mL Low 30-100 [facility] Comment on above: Result Comment: Vitamin D status 25 [place] Vitamin D Deficiency <20 ng/mL Insufficiency 20-29 ng/mL Sufficiency 30-100 ng/mL Toxicity >100 ng/mL NOTE: A pediatric reference range has not been established by the brush holder inspector of this kit. The [place] [employer] recommends a Vitamin D level of = or >20ng/mL in infants and children. Performed By: #### T SHR #### [facility] ([id number]) [address] [place] [address] XR CHEST 1 VWon 02-17-2024 XR CHEST 1 VW XR CHEST 1 VW XR CHEST 1 VW CLINICAL INDICATION: Dyspnea. COMPARISON: 02/15/2024. IMPRESSION: 1. Trace pleural effusions likely present, subtle retrocardiac opacities, probably atelectasis without jane consolidation. 2. Unchanged cardiomediastinal silhouette. Finalized by Jefferson Freedman MD on 02/17/2024 7:30 AM Normal [facility] CBC AND AUTO DIFFon 02-16-20 24 ABSOLUTE BASOPHIL 0.0 X10E9/L Normal 0.0-0.2 [facility] Comment on above: Performed By: #### C SUBHASH, , CBCA, 81913-1 ####[facility] ([id number])[address] [place] [address] 28725 ABSOLUTE NEUTROPHIL 5.8 X10E9/L Normal 1.5-6.6 [facility] Comment on above: Performed By: #### C SUBHASH, , CBCA, 63092-5 ####[facility] ([id number])[address] [place] [address] 45560 Basophils/100 WBC (Bld) 0.3 % Normal [facility] Comment on above: Performed By: #### C SUBHASH, , CBCA, 36778-0 ####[facility] ([id number])[address] [place] [address] 758[address] Eosinophils (Bld) [#/Vol] 0.3 10*3/uL Normal 0.0-0.4 [facility] Comment on above: Performed By: #### C SUBHASH, , CBCA, 68502-1 ####[facility] ([id number])[address] [place] [address] 00612 Eosinophils/100 WBC (Bld) 4.2 % Normal [facility] Comment on above: Performed By: #### C SUBHASH, , CBCA, 85849-9 ####[facility] ([id number])[address] [place] [address] 94513 Erythrocyte distribution width (RBC) [Ratio] 15.6 % High 11.5-15.0 [facility] Comment on above: Performed By: #### C SUBHASH, , CBCA, 43756-0 ####[facility] ([id number])[address] [place] [address] 41245 Hematocrit (Bld) [Volume fraction] 33.9 % Low 35-47 [facility] Comment on above: Performed By: #### C SUBHASH, , CBCA, 54846-2 ####[facility] ([id number])[address] [place] [address] 19077 Hemoglobin (Bld) [Mass/Vol] 11.4 g/dL Low 11.7-15.5 [facility] Comment on above: Performed By: #### [place] CULLEN, , CBCA, 03900-8 ####[facility] ([id number])[address] [place] [address] 53275 Lymphocytes (Bld) [#/Vol] 1.0 10*3/uL Normal 1.0-3.5 [facility] Comment on above: Performed By: #### C SUBHASH, , CBCA, 95284-8 ####[facility] ([id number])[address] [place] [address] 19916 Lymphocytes/100 WBC (Bld) 12.5 % Normal [facility] Comment on above: Performed By: #### [place] CULLEN, , CBCA, 12071-0 ####[facility] ([id number])[address] [place] [address] 45962 MCH (RBC) [Entitic mass] 31.3 pg Normal 27-34 [facility] Comment on above: Performed By: #### C SUBHASH, , CBCA, 22081-7 ####[facility] ([id number])[address] [place] [address] 50330 MCHC (RBC) [Mass/Vol] 33.8 g/dL Normal 32-36 [facility] Comment on above: Performed By: #### C SUBHASH, , CBCA, 59660-1 ####[facility] ([id number])[address] [place] [address] 08422 MCV (RBC) [Entitic vol] 93 fL Normal 80-100 [facility] Comment on above: Performed By: #### [place] CULLEN, 77622-4, CBCA, 20300-3 ####[facility] ([id number])[address] [place] [address] 13058 Monocytes (Bld) [#/Vol] 0.7 10*3/uL Normal 0-0.9 [facility] Comment on above: Performed By: #### C SUBHASH, 95751-3, CBCA, 76626-5 ####[facility] ([id number])[address] [place] [address] 69768 Monocytes/100 WBC (Bld) 8.9 % Normal [facility] Comment on above: Performed By: #### [place] CULLEN, , CBCA, 39153-7 ####[facility] ([id number])[address] [place] [address] 71997 Neutrophils/100 WBC (Bld) 74.1 % Normal [facility] Comment on above: Performed By: #### [place] CULLEN, 22264-5, CBCA, 85345-5 ####[facility] ([id number])[address] [place] [address] 03745 Platelet mean volume (Bld) [Entitic vol] 7.7 fL Normal 7-12 [facility] Comment on above: Performed By: #### C SUBHASH, 33141-1, CBCA, 56019-4 ####[facility] ([id number])[address] [place] [address] 60194 Platelets (Bld) [#/Vol] 196 10*3/uL Normal 150-450 [facility] Comment on above: Performed By: #### C SUBHASH, 88547-8, CBCA, 68787-0 ####[facility] ([id number])[address] [place] [address] 18343 RBC COUNT 3.66 X10E12/L Low 3.80-5.20 [facility] Comment on above: Performed By: #### C SUBHASH, 76242-0, CBCA, 27714-4 ####[facility] ([id number])[address] [place] [address] 44198 WBC (Bld) [#/Vol] 7.8 10*3/uL Normal 4.0-11.0 [facility] Comment on above: Performed By: #### C SUBHASH, 50662-9, CBCA, 69556-8 ####[facility] ([id number])[address] [place] [address] 00861 COMPREHENSIVE METABOLIC PANE [facility] 02-16-2024 Albumin [Mass/Vol] 3.4 g/dL Normal 3.2-5.3 [facility] Comment on above: Performed By: #### C SUBHASH, 62031-0, CBCA, 37264-9 ####[facility] ([id number])[address] [place] [address] 30045 ALP [Catalytic activity/Vol] 44 U/L Normal 39-130 [facility] Comment on above: Performed By: #### C SUBHASH, 32026-8, CBCA, 09979-3 ####[facility] ([id number])[address] [place] [address] 75829 ALT [Catalytic activity/Vol] 18 U/L Normal 0-31 [facility] Comment on above: Performed By: #### C SUBHASH, 38045-5, CBCA, 45039-8 ####[facility] ([id number])[address], [place] [address] Anion gap [Moles/Vol] 6 mmol/L Normal 5-15 [facility] Comment on above: Performed By: #### C SUBHASH, , CBCA, 94083-7 ####[facility] ([id number])[address] [place] [address] 91455 AST [Catalytic activity/Vol] 24 U/L Normal 0-41 [facility] Comment on above: Performed By: #### C SUBHASH, , CBCA, 68776-5 ####[facility] ([id number])[address] [place] [address] 80345 Bilirubin [Mass/Vol] 0.9 mg/dL Normal 0.3-1.2 [facility] Comment on above: Performed By: #### C SUBHASH, , CBCA, 13484-3 ####[facility] ([id number])[address] [place] [address] 98830 Calcium [Mass/Vol] 8.2 mg/dL Low 8.5-10.5 [facility] Comment on above: Performed By: #### [place] CULLEN, , CBCA, 32400-1 ####[facility] ([id number])[address] [place] [address] 90095 Chloride [Moles/Vol] 105 mmol/L Normal 98-109 [facility] Comment on above: Performed By: #### C SUBHASH, , CBCA, 04710-7 ####[facility] ([id number])[address] [place] [address] 84748 CO2 [Moles/Vol] 27 mmol/L Normal 22-32 [facility] Comment on above: Performed By: #### C SUBHASH, , CBCA, 56058-1 ####[facility] ([id number])[address] [place] [address] 86576 Creatinine [Mass/Vol] 0.87 mg/dL Normal 0.40-1.00 [facility] Comment on above: Result Comment: METH OD TRACEABLE TO IDMS STANDARD Performed By: #### C SUBHASH, , CBCA, 92347-2 ####[facility] ([id number])[address] [place] [address] 30046 GFR/1.73 sq M.predicted among non-blacks MDRD (S/P/Bld) [Vol rate/Area] 68 mL/min/{1.73_m2} Normal >59 [facility] Comment on above: Result Comment: Reported eGFR is based on the CKD-EPI 2020 equation that does not use a race coefficient. Performed By: #### C SUBHASH, , CBCA, 94213-3 ####[facility] ([id number])[address] [place] [address] 28538 Glucose [Mass/Vol] 100 mg/dL High 65-99 [facility] Comment on above: Performed By: #### C SUBHASH, , CBCA, 27695-6 ####[facility] ([id number])[address] [place] [address] 26956 Potassium [Moles/Vol] 3.4 mmol/L Low 3.5-5.0 [facility] Comment on above: Performed By: #### C SUBHASH, , CBCA, 32771-1 ####[facility] ([id number])[address] [place] [address] 33527 Protein [Mass/Vol] 5.8 g/dL Low 6.0-8.0 [facility] Comment on above: Performed By: #### C SUBHASH, , CBCA, 01855-3 ####[facility] ([id number])[address] [place] [address] 11736 Sodium [Moles/Vol] 138 mmol/L Normal 134-146 [facility] Comment on above: Performed By: #### C SUBHASH, , CBCA, 41806-3 ####[facility] ([id number])[address] [place] [address] 17675 Urea nitrogen [Mass/Vol] 15 mg/dL Normal 5-27 [facility] Comment on above: Performed By: #### C SUBHASH, , CBCA, 51309-0 ####[facility] ([id number])[address] [place] [address] 98203 HGB AND HCTon 02-16-2024 Hematocrit (Bld) [Volume fraction] 35.1 % Normal 35-47 [facility] Comment on above: Performed By: #### H H ####[facility] ([id number])[address] [place] [address] 35648 Hemoglobin (Bld) [Mass/Vol] 11.5 g/dL Low 11.7-15.5 [facility] Comment on above: Performed By: #### H H ####[facility] ([id number])[address] [place] [address] 54972 MAGNESIUMon 02-16-2024 Magnesium [Mass/Vol] 1.9 mg/dL Normal 1.8-2.6 [facility] Comment on above: Performed By: #### C SUBHASH, , CBCA, 91684-9 ####[facility] ([id number])[address] [place] [address] 00638 Natriuretic peptide B [Mass/ Vol]on 02-16-2024 Natriuretic peptide B (Bld) [Mass/Vol] 364 pg/mL High <100.0 [facility] Comment on above: Performed By: #### C SUBHASH, , CBCA, 66534-7 ####[facility] ([id number])[address] [place] [address] 35123 XR HIP LT 2-3 VIEWS W OR WO PELVISon 02-16-2024 XR HIP LT 2-3 VIEWS W OR WO PELVIS XR HIP LT 2-3 VIEWS W OR WO PELVIS Clinical history: Hip fracture Fluoroscopy for intraoperative assessment: 02/16/2024 Impression: 1. Fluoroscopy was provided for the procedure intraoperatively. 2. A total of 117.3 seconds of fluoroscopy time was utilized. 3. Exposure (reference Air Kerma) was calculated to be 57.20 mGy. 4. A total of 5 views from fluoroscopy demonstrate stages of the procedure. 5. Please refer to the procedural report. Finalized by Michael Garcia MD on 02/16/2024 6:50 PM Normal [facility] 25-hydroxyvitamin D3 and Vit kang D2 panelon 02-15-2024 25-Hydroxy D Total 38 ng/mL Normal [facility] Comment on above: Result Comment: NOTE REFERENCE VALUE 25-HYDROXY D TOTAL (D2+D3) Optimum levels in the healthy population are 20-50. ADDITIONAL INFORMATION This test was developed and its performance characteristics determined by [facility] in a manner consistent with CLIA requirements. This test has not been cleared or approved by the U.S. Food and Drug Administration. Test Performed by: [facility] [address] [place] [address] [employer] Associate: Lorenzo Harrell Ph.D.; CLIA# [id number] Performed By: #### C GUSTAVO OLIVEIRA, 35870-9 #### [facility] ([id number]) [address] [place] [address]7627 25-Hydroxy D2 32 ng/mL Normal [facility] Comment on above: Performed By: #### C GUSTAVO OLIVEIRA, 01583-1 #### [facility] ([id number]) [address] [place] [address] 35750 25-Hydroxy D3 5.9 ng/mL Normal [facility] Comment on above: Performed By: #### [place] OLIVEIRA CMP, 13596-9 #### [facility] ([id number]) [address] [place] [address] 86198 CBC AND AUTO DIFFon 02-15-20 ABSOLUTE BASOPHIL 0.0 X10E9/L Normal 0.0-0.2 [facility] Comment on above: Performed By: #### [place] [facility]A [facility], 62357-9 #### [facility] ([id number]) [address] [place] [address] 44107 ABSOLUTE NEUTROPHIL 7.1 X10E9/L High 1.5-6.6 [facility] Comment on above: Performed By: #### [place] OLIVEIRA [facility], 07950-4 #### [facility] ([id number]) [address] [place] [address] 18300 Basophils/100 WBC (Bld) 0.4 % Normal [facility] Comment on above: Performed By: #### [place] OLIVEIRA, [facility], 04270-7 #### [facility] ([id number]) [address] [place] [address] 53174 Eosinophils (Bld) [#/Vol] 0.2 10*3/uL Normal 0.0-0.4 [facility] Comment on above: Performed By: #### [place] OLIVEIRA CMP, 11036-6 #### [facility] ([id number]) [address] [place] [address] 78570 Eosinophils/100 WBC (Bld) 1.8 % Normal [facility] Comment on above: Performed By: #### Mari[place] OLIVEIRA, CMP, 75695-7 #### [facility] ([id number]) [address] [place] [address] 27878 Erythrocyte distribution width (RBC) [Ratio] 15.6 % High 11.5-15.0 [facility] Comment on above: Performed By: #### [place] OLIVEIRA CMP, 47523-2 #### [facility] ([id number]) [address] [place] [address] 31997 Hematocrit (Bld) [Volume fraction] 35.8 % Normal 35-47 [facility] Comment on above: Performed By: #### [place] OLIVEIRA CMP, 26565-6 #### [facility] ([id number]) [address] [place] [address] 61039 Hemoglobin (Bld) [Mass/Vol] 12.0 g/dL Normal 11.7-15.5 [facility] Comment on above: Performed By: #### Marietta OLIVEIRA CMP, 38849-2 #### [facility] ([id number]) [address] [place] [address] 76052 Lymphocytes (Bld) [#/Vol] 1.1 10*3/uL Normal 1.0-3.5 [facility] Comment on above: Performed By: #### [place]etta OLIVEIRA CMP, 63068-3 #### [facility] ([id number]) [address] [place] [address] 22471 Lymphocytes/100 WBC (Bld) 11.9 % Normal [facility] Comment on above: Performed By: #### [place] OLIVEIRA CMP, 80143-0 #### [facility] ([id number]) [address] [place] [address] 90452 MCH (RBC) [Entitic mass] 31.2 pg Normal 27-34 [facility] Comment on above: Performed By: #### [place] OLIVEIRA CMP, 76434-6 #### [facility] ([id number]) [address] [place] [address] 81778 MCHC (RBC) [Mass/Vol] 33.6 g/dL Normal 32-36 [facility] Comment on above: Performed By: #### Marietta OLIVEIRA, CMP, 14173-6 #### [facility] ([id number]) [address] [place] [address] 70064 MCV (RBC) [Entitic vol] 93 fL Normal 80-100 [facility] Comment on above: Performed By: #### Marietta OLIVEIRA, CMP, 69936-3 #### [facility] ([id number]) [address] [place] [address] 25262 Monocytes (Bld) [#/Vol] 0.8 10*3/uL Normal 0-0.9 [facility] Comment on above: Performed By: #### Marietta OLIVEIRA, CMP, 88619-8 #### [facility] ([id number]) [address] [place] [address] 27080 Monocytes/100 WBC (Bld) 8.3 % Normal [facility] Comment on above: Performed By: #### Marietta OLIVEIRA, CMP, 19143-9 #### [facility] ([id number]) [address] [place] [address] 66815 Neutrophils/100 WBC (Bld) 77.6 % Normal [facility] Comment on above: Performed By: #### Marietta OLIVEIRA, CMP, 60555-1 #### [facility] ([id number]) [address] [place] [address] 39630 Platelet mean volume (Bld) [Entitic vol] 7.0 fL Normal 7-12 [facility] Comment on above: Performed By: #### Marietta OLIVEIRA, CMP, 23060-9 #### [facility] ([id number]) [address] [place] [address] 93651 Platelets (Bld) [#/Vol] 199 10*3/uL Normal 150-450 [facility] Comment on above: Performed By: #### Marietta BCA, CMP, 41503-9 #### [facility] ([id number]) [address] [place] [address] 31254 RBC COUNT 3.86 X10E12/L Normal 3.80-5.20 [facility] Comment on above: Performed By: #### C BCA, CMP, 72217-4 #### [facility] ([id number]) [address] [place] [address] 56873 WBC (Bld) [#/Vol] 9.1 10*3/uL Normal 4.0-11.0 [facility] Comment on above: Performed By: #### C BCA, CMP, 44116-7 #### [facility] ([id number]) [address] [place] [address] 50828 COMPREHENSIVE METABOLIC PANE [facility] 02-15-2024 Albumin [Mass/Vol] 3.8 g/dL Normal 3.2-5.3 [facility] Comment on above: Performed By: #### C BCA, CMP, 31931-6 #### [facility] ([id number]) [address] [place] [address] 04129 ALP [Catalytic activity/Vol] 52 U/L Normal 39-130 [facility] Comment on above: Performed By: #### C BCA, CMP, 71879-2 #### [facility] ([id number]) [address] [place] [address] 61788 ALT [Catalytic activity/Vol] 21 U/L Normal 0-31 [facility] Comment on above: Performed By: #### C BCA, CMP, 63052-7 #### [facility] ([id number]) [address] [place] [address] 95127 Anion gap [Moles/Vol] 6 mmol/L Normal 5-15 [facility] Comment on above: Performed By: #### C BCA, CMP, 49308-1 #### [facility] ([id number]) [address] [place] [address] 46925 AST [Catalytic activity/Vol] 29 U/L Normal 0-41 [facility] Comment on above: Performed By: #### C TEE, CMP, 75131-9 #### [facility] ([id number]) [address] [place] [address] 58246 Bilirubin [Mass/Vol] 0.7 mg/dL Normal 0.3-1.2 [facility] Comment on above: Performed By: #### C TEE, CMP, 75887-2 #### [facility] ([id number]) [address] [place] [address] 00810 Calcium [Mass/Vol] 8.6 mg/dL Normal 8.5-10.5 [facility] Comment on above: Performed By: #### C TEE, [facility], 23592-6 #### [facility] ([id number]) [address] [place] [address] 24825 Chloride [Moles/Vol] 107 mmol/L Normal 98-109 [facility] Comment on above: Performed By: #### C TEE, [facility], 35027-5 #### [facility] ([id number]) [address] [place] [address] 76286 CO2 [Moles/Vol] 25 mmol/L Normal 22-32 [facility] Comment on above: Performed By: #### C BCA, CMP, 31670-4 #### [facility] ([id number]) [address] [place] [address] 22084 Creatinine [Mass/Vol] 0.96 mg/dL Normal 0.40-1.00 [facility] Comment on above: Result Comment: METH OD TRACEABLE TO IDMS STANDARD Performed By: #### C TEE, CMP, 32806-9 #### [facility] ([id number]) [address] [place] [address]108 GFR/1.73 sq M.predicted among non-blacks MDRD (S/P/Bld) [Vol rate/Area] 61 mL/min/{1.73_m2} Normal >59 [facility] [facility] Comment on above: Result Comment: Reported eGFR is based on the CKD-EPI 2020 equation that does not use a race coefficient. Performed By: #### Marietta OLIVEIRA CMP, 53736-7 #### [facility] ([id number]) [address] [place] [address]202 Glucose [Mass/Vol] 122 mg/dL High 65-99 [facility] Comment on above: Performed By: #### Marietta OLIVEIRA CMP, 18115-3 #### [facility] ([id number]) [address] [place] [address] 63017 Potassium [Moles/Vol] 3.6 mmol/L Normal 3.5-5.0 [facility] Comment on above: Performed By: #### Marietta OLIVEIRA CMP, 14669-9 #### [facility] ([id number]) [address] [place] [address] 45669 Protein [Mass/Vol] 6.8 g/dL Normal 6.0-8.0 [facility] Comment on above: Performed By: #### Marietta OLIVEIRA CMP, 60357-5 #### [facility] ([id number]) [address] [place] [address] 95034 Sodium [Moles/Vol] 138 mmol/L Normal 134-146 [facility] Comment on above: Performed By: #### Marietta OLIVEIRA CMP, 68056-7 #### [facility] ([id number]) [address] [place] [address] 49001 Urea nitrogen [Mass/Vol] 20 mg/dL Normal 5-27 [facility] Comment on above: Performed By: #### Marietta OLIVEIRA CMP, 15574-8 #### [facility] ([id number]) [address] [place] [address] 64871 Prealbumin IA [Mass/Vol]on 0 02-15-2024 Prealbumin [Mass/Vol] 20 mg/dL Normal 18-45 [facility] Comment on above: Performed By: #### 8 9579-7 ####[facility] ([id number])[address] [place] [address] 44759#### 6793-4 ####[facility] ([id number])[address], [address] [place] [address]21 TSH WITH REFLEXon 02-15-2024 TSH 1.79 uIU/mL Normal 0.49-4.67 [facility] Comment on above: Performed By: #### T SHR #### [facility] ([id number]) [address] [facility], [address] [place] [address] Troponin I.cardiac High sens itivity method [Mass/Vol]on 02-15-2024 1 HOUR TROP I, HIGH SENSITIVITY 7 ng/L Normal <16 [facility] Comment on above: Performed By: #### 8 9579-7 ####[facility] ([id number])[address] [place] [address] 66217#### 6793-4 ####[facility] ([id number])[address], [address] [place] [address] TROPONIN I, HIGH SENSITIVITY 7 ng/L Normal <16 [facility] Comment on above: Performed By: #### C BCA, CMP, 43168-8 #### [facility] ([id number]) [address] [place] [address] 42801 URINALYSISon 02-15-2024 Bilirubin Ql (U) Negative Normal NEG [facility] Comment on above: Performed By: #### U A ####[facility] ([id number])[address] [place] [address] BLOOD/HGB Large Abnormal NEG [facility] Comment on above: Performed By: #### U A ####[facility] ([id number])[address] [place] [address] [place] [address] Color (U) ORANGE Abnormal YELLOW [facility] Comment on above: Performed By: #### U A ####[facility] ([id number])[address] [place] [address] [place] [address] Glucose Ql (U) Negative Normal NEG [facility] Comment on above: Performed By: #### U A ####[facility] ([id number])[address] [place] [address] 16413 Ketones Ql (U) Trace Abnormal NEG [facility] Comment on above: Performed By: #### U A ####[facility] ([id number])[address] [place] [address] [place] [address] Leukocyte esterase Test strip Ql (U) MODERATE Abnormal NEG [facility] Comment on above: Performed By: #### U A ####[facility] ([id number])[address] [place] [address] [place] [address] MUCOUS PRESENT Abnormal NONE [facility] Comment on above: Performed By: #### U A ####[facility] ([id number])[address] [place] [address] [place] [address] Nitrite Ql (U) Positive Abnormal NEG [facility] Comment on above: Performed By: #### U A ####[facility] ([id number])[address] [place] [address] 10963 pH (U) 5.5 [pH] Normal 5.0-8.5 [facility] Comment on above: Performed By: #### U A ####[facility] ([id number])[address] [place] [address] Protein Ql (U) 100 mg/dL Abnormal NEG [facility] Comment on above: Performed By: #### U A ####[facility] ([id number])[address] [place] [address] [place] [address] R.B.CELLS PRESENT Normal 0-5 [facility] Comment on above: Performed By: #### U A ####[facility] ([id number])[address] [place] [address] [place] [address] Specific gravity (U) [Rel density] >1.030 Normal 1.003-1.035 [facility] Comment on above: Performed By: #### U A ####[facility] ([id number])[address] [place] [address] SQUAMOUS EPITHELIUM PRESENT Normal 0-5 [facility] Comment on above: Performed By: #### U A ####[facility] ([id number])[address] [place] [address] [place] [address] TRANSITIONAL EPITH PRESENT Normal 0 [facility] Comment on above: Performed By: #### U A ####[facility] ([id number])[address] [place] [address] TURBIDITY CLOUDY Abnormal CLEAR [facility] Comment on above: Performed By: #### U A ####[facility] ([id number])[address] [place] [address] [place] [address] Urinalysis dipstick W Reflex Microscopic panel (U) URINE RECEIVED WITHOUT PRESERVATIVE-DELAYS IN TRANSPORT MAY AFFECT RESULTS.INTERPRET WITH CAUTION AND CLINICAL CORRELATION IS RECOMMENDED. Normal [facility] Comment on above: Performed By: #### U A ####[facility] ([id number])[address] [place] [address] [place] [address] Urinalysis dipstick W Reflex Microscopic panel (U) Results may be affected due to high WBC count, Interpret with Caution. Normal [facility] Comment on above: Performed By: #### U A ####[facility] ([id number])[address] [place] [address] Urobilinogen Qn (U) 1.0 {Maren'U}/dL Normal <1.1 [facility] Comment on above: Performed By: #### U A ####[facility] ([id number])[address] [place] [address] W.B.CELLS >100 High 0-5 [facility] Comment on above: Performed By: #### U A ####[facility] ([id number])[address] [place] [address]5573 Bilirubin Ql (U) Negative Normal NEG [facility] Comment on above: Performed By: #### U A #### [facility] ([id number]) [address], [address] [place] [address] BLOOD/HGB Small Abnormal NEG [facility] Comment on above: Performed By: #### U A #### [facility] ([id number]) [address] [facility] [facility], [address] [place] [address] Color (U) YELLOW Normal YELLOW [facility] Comment on above: Performed By: #### U A #### [facility] ([id number]) [address], [address] [place] [address] Glucose Ql (U) Negative Normal NEG [facility] Comment on above: Performed By: #### U A #### [facility] ([id number]) [address], [address] [place] [address] Ketones Ql (U) Negative Normal NEG [facility] Comment on above: Performed By: #### U A #### [facility] ([id number]) [address], [address] [place] [address] Leukocyte esterase Test strip Ql (U) Large Abnormal NEG [facility] Comment on above: Performed By: #### U A #### [facility] ([id number]) [address] [facility], [address] [place] [address] MUCOUS PRESENT Abnormal NONE [facility] Comment on above: Performed By: #### U A #### [facility] ([id number]) [address] [place] [address], [address] [place] [address] Nitrite Ql (U) Negative Normal NEG [facility] Comment on above: Performed By: #### U A #### [facility] ([id number]) [address] [place] [address], [address] [place] [address] pH (U) 6.0 [pH] Normal 5.0-8.5 [facility] Comment on above: Performed By: #### U A #### [facility] ([id number]) [address] [place] [address], [address] [place] [address] Protein Ql (U) 50 mg/dL Abnormal NEG [facility] Comment on above: Performed By: #### U A #### [facility] ([id number]) [address] [place] [address], [address] [place] [address] R.B.CELLS 7 /hpf High 0-5 [facility] Comment on above: Performed By: #### U A #### [facility] ([id number]) [address] [place] [address], [address] [place] [address] Specific gravity (U) [Rel density] 1.029 Normal 1.003-1.035 [facility] Comment on above: Performed By: #### U A #### [facility] ([id number]) [address] [place] [address] [address] [place] [address] SQUAMOUS EPITHELIUM 24 /hpf High 0-5 [facility] Comment on above: Performed By: #### U A #### [facility] ([id number]) [address], [address] [place] [address] TURBIDITY CLOUDY Abnormal CLEAR [facility] Comment on above: Performed By: #### U A #### [facility] ([id number]) [address], [address] [place] [address] Urobilinogen (U) [Mass/Vol] mg/dL Normal <1.1 [facility] Comment on above: Performed By: #### U A #### [facility] ([id number]) [address], [address] [place] [address] W.B.CELLS >720 High 0-5 [facility] Comment on above: Performed By: #### U A #### [facility] ([id number]) [address], [address] [place] [address] WBC CLUMPS MANY Abnormal NONE [facility] Comment on above: Performed By: #### U A #### [facility] ([id number]) [address], [address] [place] [address] URINE CULTUREon 02-15-2024 Bacteria identified Cx Nom (U) SPECIMEN NOTES URINE RECEIVED WITHOUT PRESERVATIVE CULTURE RESULTS >100,000 ORGANISMS/mL FILOMENA GLABRATA URINE RECEIVED WITHOUT PRESERVATIVE-DELAYS IN TRANSPORT MAY AFFECT RESULTS.INTERPRET WITH CAUTION AND CLINICAL CORRELATION IS RECOMMENDED. Normal [facility] Comment on above: Performed By: #### T SHR #### [facility] ([id number]) [address], [address] [place] [address] XR CHEST 1 VWon 02-15-2024 XR CHEST 1 VW XR CHEST 1 VW Single view chest History: Difficulty breathing, shortness of breath Comparison: 05/10/2020 Impression: 1. Central pulmonary vascular congestion. Probable trace interstitial pulmonary edema. Small left pleural effusion. No pneumothorax. 2. Nonenlarged heart. 3. Sternotomy could Finalized by Anatoliy Sifuentes MD on 02/15/2024 10:21 PM Normal [facility] XR ELBOW LT MIN 3 VWSon 01-20 XR ELBOW LT MIN 3 VWS XR ELBOW LT MIN 3 VWS XR ELBOW LT MIN 3 VWS HISTORY: fall injury. COMPARISON: none IMPRESSION: 1. Small effusion, subtle cortical irregularity about the radial head [best seen on lateral], possibly minimally displaced fracture versus degenerative changes. Finalized by Anatoliy Sifuentes MD on 02/15/2024 10:22 PM Normal [facility] XR HIP LT 2-3 VIEWS W OR WO PELVISon 02-15-2024 XR HIP LT 2-3 VIEWS W OR WO PELVIS XR HIP LT 2-3 VIEWS W OR WO PELVIS XR HIP LT 2-3 VIEWS W OR WO PELVIS HISTORY: fall hip and pelvis pain. COMPARISON: none IMPRESSION: LEFT HIP: Subtle impacted subcapital femoral neck fracture. PELVIS: No displaced or pelvic fracture. Osteopenia. Finalized by Anatoliy Sifuentes MD on 02/15/2024 10:29 PM Normal [facility] US RETROPERITONEAL COMPLETEo n 01-17-2024 US RETROPERITONEAL COMPLETE US RETROPERITONEAL COMPLETE EXAM: [...] Katarina Son MD on 01/17/2024 10:54 PM Normal [facility] XR ABDOM COMP SERIES W PA CH [...] Cadet MD on 01/13/2024 5:53 AM Normal [facility] Heart and Vascular Office/[facility] Noteon 12-05-2023 Heart and Vascular Office/Clinic Note History of Present Illness Tea Rahman is a 78-year-old female who presents today for a follow-up visit. Her eldest daughter and an adult male accompanied her during the visit. The patient reports significant improvement of health condition. She had shingles for which she consulted with Dr. Leung of internal medicine at [facility]. This condition caused back myalgia, and she had a challenging period. She notes a significant improvement from shingles despite a gradual recovery. Her shingles resulted in bladder and bowel issues, which have been her most distressing problems and are currently her primary concerns. She is scheduled for a follow-up appointment with a specialist in [place] in 11/2023 to address her bladder issues. [...] mmHg. 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 She experiences episodes of depression, though these are improving. She has resumed taking Xanax. Her younger daughter facilitated a consultation with a psychiatrist in [place], who manages her Xanax regimen. The psychiatrist [...] with voice recognition artificial intelligence software, specifically [employer], [employer] and or [employer]. Substitutions may have occurred due to the inherent limitations of voice recognition and artificial intelligence software. Documentation services were performed after patient or guardian consented to allow [employer] to record this visit. DARVIN display specialist and provider reviewed before signing. 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 [facility] Comment on above: Result Comment: Elec tronically Signed By: Portillo PIPER, Rahul Varner\.br\Date and Time Signed: 12/05/23 06:20 EDT\.br\Electronically Co-Signed By: Andrea Gonzalez\.br\Date and Time Co-Signed: 11/13/23 14:21 EDT Consent for Treatmenton 10-20 Consent for Treatment [id number] 0TIFF [facility] Physician Orderon 11-13-2023 Physician Order [id number]. [id number] [facility] Amorphous urine sedimentOrde red By: Rashard Aguilar on 09-12-2023 Amorphous sediment LM Ql (Urine sed) See comment Negative [facility] Comment on above: Unable to obtain acc urate result due to color interference. Automated epithelial cells c ount in urine sediment (number/area)Ordered By: Rashard Aguilar on 09-12-2023 Epithelial cells Auto (Urine sed) [#/Area] 5-9 [HPF] 0-2 [facility] Automated erythrocytes count in urine sediment (number/area)Ordered By: Rashard Aguilar on 09-12-2023 RBC Auto (Urine sed) [#/Area] 3-4 [HPF] 0-4 [facility] Automated leukocytes count i n urine sediment (number/area)Ordered By: Rashard Aguilar on 09-12-2023 WBC Auto (Urine sed) [#/Area] 50-100 [HPF] 0-4 [facility] Automated urine hyaline cast s count (number/volume)Ordered By: Rashard Aguilar on 09-12-2023 Hyaline casts Auto (U) [#/Vol] 0-1 [LPF] 0-1 [facility] Automated urine specific gra vity by refractometryOrdered By: Rashard Aguilar on 09-12-2023 Specific gravity Refractometry automated (U) [Rel density] 1.028 1.001-1.030 [facility] Basophils Auto (Bld) [#/Vol] Ordered By: Rashard Aguilar on 09-12-2023 Basophils (Bld) [#/Vol] 0.0 10*3/uL 0.0-0.2 [facility] Basophils/100 WBC Auto (Bld) Ordered By: Rashard Aguilar on 09-12-2023 Basophils/100 WBC (Bld) 0.8 % . [facility] Bilirubin Auto test strip Ql (U)Ordered By: Rashard Aguilar on 09-12-2023 Bilirubin Ql (U) See comment Negative [facility] Comment on above: Unable to obtain acc urate result due to color interference. C reactive protein [Mass/vol ume] in Serum or PlasmaOrdered By: Rashard Aguilar on 09-12-2023 CRP [Mass/Vol] 0.6 mg/dL 0.0-0.5 [facility] C-Reactive Proteinon 024 C-Reactive Protein 0.6 mg/dL High 0.0-0.5 [facility] Comment on above: Result Comment: PERF ORMED BY: [place] [address] PATHOLOGIST DAIRY FARMER KEYON SERNA M.D. Performed By: #### C BC, ADDONUAPLUS, ESR, CUU, CRP, CREAT #### [address] #### C4, C3 #### [facility] , Complement C3on 09-12-2023 Complement C3 155 mg/dL Normal 82-167 [facility] Comment on above: Result Comment: Perf ormed at: - [facility] [id number] [place], [place] [id number] Seasonal Warehouse Associate: Paul Dumont PhD, Phone: [phone] Performed By: #### C BC, ADDONUAPLUS, ESR, CUU, CRP, CREAT #### [address] #### C4, C3 #### [facility] , Complement C4on 09-12-2023 Complement C4 34 mg/dL Normal 12-38 [facility] Comment on above: Result Comment: PERF ORMED BY: [place] [address] PATHOLOGIST DAIRY FARMER KEYON SERNA M.D. Performed By: #### C BC, ADDONUAPLUS, ESR, CUU, CRP, CREAT #### [address] #### C4, C3 #### [facility] , Complete Blood Count Auto Di ffon 09-12-2023 Basophils (Bld) [#/Vol] 0.0 10*3/uL Normal 0.0-0.2 [facility] Comment on above: Performed By: #### C BC, ADDONUAPLUS, ESR, CUU, CRP, CREAT #### [place] [address] [place] #### C4, C3 #### [facility] , Basophils/100 WBC (Bld) 0.8 % Normal . [facility] Comment on above: Performed By: #### C BC, ADDONUAPLUS, ESR, CUU, CRP, CREAT #### [place] [address] [place] #### C4, C3 #### [facility] , Eosinophils (Bld) [#/Vol] 0.2 10*3/uL Normal 0.0-0.45 [facility] Comment on above: Performed By: #### C BC, ADDONUAPLUS, ESR, CUU, CRP, CREAT #### [address] #### C4, C3 #### [facility] , Eosinophils/100 WBC (Bld) 4.0 % Normal . [facility] Comment on above: Performed By: #### C BC, ADDONUAPLUS, ESR, CUU, CRP, CREAT #### [place] [address] [place] #### C4, C3 #### [facility] , Erythrocyte distribution width (RBC) [Ratio] 14.3 % Normal 11.9-15.3 [facility] Comment on above: Performed By: #### C BC, ADDONUAPLUS, ESR, CUU, CRP, CREAT #### [place] [address] [place] #### C4, C3 #### [facility] , Hematocrit (Bld) [Volume fraction] 39.2 % Normal 34.0-46.4 [facility] Comment on above: Performed By: #### C BC, ADDONUAPLUS, ESR, CUU, CRP, CREAT #### [place] [address] [place] #### C4, C3 #### [facility] , Hemoglobin (Bld) [Mass/Vol] 12.9 g/dL Normal 11.8-15.4 [facility] Comment on above: Performed By: #### C BC, ADDONUAPLUS, ESR, CUU, CRP, CREAT #### [address] #### C4, C3 #### [facility] , Lymphocytes (Bld) [#/Vol] 1.8 10*3/uL Normal 1.00-4.8 [facility] Comment on above: Performed By: #### C BC, ADDONUAPLUS, ESR, CUU, CRP, CREAT #### [place] [address] [place] #### C4, C3 #### [facility] , Lymphocytes/100 WBC (Bld) 31.9 % Normal . [facility] Comment on above: Performed By: #### C BC, ADDONUAPLUS, ESR, CUU, CRP, CREAT #### [place] [address] [place] #### C4, C3 #### [facility] , MCH (RBC) [Entitic mass] 31.1 pg Normal 24.7-34.3 [facility] Comment on above: Performed By: #### C BC, ADDONUAPLUS, ESR, CUU, CRP, CREAT #### [place] [address] [place] #### C4, C3 #### [facility] , MCV (RBC) [Entitic vol] 94.4 fL Normal 80-100 [facility] Comment on above: Performed By: #### C BC, ADDONUAPLUS, ESR, CUU, CRP, CREAT #### [place] [address] [place] #### C4, C3 #### [facility] , Mean Corpuscular HGB Conc 33.0 g/dL Normal 32.0-35.0 [facility] Comment on above: Performed By: #### C BC, ADDONUAPLUS, ESR, CUU, CRP, CREAT #### [place] [address] [place] #### C4, C3 #### [facility] , Monocytes (Bld) [#/Vol] 0.5 10*3/uL Normal 0.0-0.8 [facility] Comment on above: Performed By: #### C BC, ADDONUAPLUS, ESR, CUU, CRP, CREAT #### [place] [address] [place] #### C4, C3 #### [facility] , Monocytes/100 WBC (Bld) 8.5 % Normal . [facility] Comment on above: Performed By: #### C BC, ADDONUAPLUS, ESR, CUU, CRP, CREAT #### [place] [address] [place] #### C4, C3 #### [facility] , Neutrophils (Bld) [#/Vol] 3.1 10*3/uL Normal 1.8-7.7 [facility] Comment on above: Performed By: #### C BC, ADDONUAPLUS, ESR, CUU, CRP, CREAT #### [place] [address] [place] #### C4, C3 #### [facility] , Neutrophils/100 WBC (Bld) 54.8 % Normal . [facility] Comment on above: Performed By: #### C BC, ADDONUAPLUS, ESR, CUU, CRP, CREAT #### [place] [address] [place] #### C4, C3 #### [facility] , NRBC% 0.2 /100{WBC} Normal 0-0.5 [facility] Comment on above: Performed By: #### C BC, ADDONUAPLUS, ESR, CUU, CRP, CREAT #### [address] #### C4, C3 #### [facility] , Platelet mean volume (Bld) [Entitic vol] 7.6 fL Normal 6.3-10.7 [facility] Comment on above: Performed By: #### C BC, ADDONUAPLUS, ESR, CUU, CRP, CREAT #### [address] #### C4, C3 #### [facility] , Platelets (Bld) [#/Vol] 263 10*3/uL Normal 150-450 [facility] Comment on above: Performed By: #### C BC, ADDONUAPLUS, ESR, CUU, CRP, CREAT #### [address] #### C4, C3 #### [facility] , RBC (Bld) [#/Vol] 4.16 10*6/uL Normal 3.60-5.00 [facility] Comment on above: Performed By: #### C BC, ADDONUAPLUS, ESR, CUU, CRP, CREAT #### [address] #### C4, C3 #### [facility] , WBC (Bld) [#/Vol] 5.7 10*3/uL Normal 3.8-11.6 [facility] Comment on above: Performed By: #### C BC, ADDONUAPLUS, ESR, CUU, CRP, CREAT #### [place] [address] [place] #### C4, C3 #### [facility] , Creatinineon 09-12-2023 Creatinine [Mass/Vol] 0.92 mg/dL Normal 0.60-1.20 [facility] Comment on above: Performed By: #### C BC, ADDONUAPLUS, ESR, CUU, CRP, CREAT #### [facility] [address] [place] [address] #### C4, C3 #### [facility] , GFR/1.73 sq M.predicted MDRD (S/P/Bld) [Vol rate/Area] mL/min/{1.73_m2} Normal [facility] Comment on above: Performed By: #### C BC, ADDONUAPLUS, ESR, CUU, CRP, CREAT #### [address] #### C4, C3 #### [facility] , Creatinine [Mass/volume] in Serum or PlasmaOrdered By: Rashard Aguilar on 09-12-2023 Creatinine [Mass/Vol] 0.92 mg/dL 0.60-1.20 [facility] Dipstick and Microscopicon 0 09-12-2023 Appearance (U) Slightly Cloudy Critically abnormal Clear [facility] Comment on above: Order Comment: Name Collection Type:: Clean-Voided Midstream Performed By: #### C BC, ADDONUAPLUS, ESR, CUU, CRP, CREAT #### [address] #### C4, C3 #### [facility] , Bacteria,Urine 2+ High None Seen [facility] Comment on above: Order Comment: Name Collection Type:: Clean-Voided Midstream Performed By: #### C BC, ADDONUAPLUS, ESR, CUU, CRP, CREAT #### [address] #### C4, C3 #### [facility] , Bilirubin,Urine Normal Negative [facility] Comment on above: Order Comment: Name Collection Type:: Clean-Voided Midstream Result Comment: Unab le to obtain accurate result due to color interference. Performed By: #### C BC, ADDONUAPLUS, ESR, CUU, CRP, CREAT #### [facility] [address] [place] [address] #### C4, C3 #### [facility] , Color (U) [place] Critically abnormal Yellow [facility] Comment on above: Order Comment: Name Collection Type:: Clean-Voided Midstream Performed By: #### C BC, ADDONUAPLUS, ESR, CUU, CRP, CREAT #### [facility] [address] [place] [address] [place] #### C4, C3 #### [facility] , Glucose Ql (U) Normal Normal [facility] Comment on above: Order Comment: Name Collection Type:: Clean-Voided Midstream Result Comment: Unab le to obtain accurate result due to color interference. Performed By: #### C BC, ADDONUAPLUS, ESR, CUU, CRP, CREAT #### [address] #### C4, C3 #### [facility] , Hyaline Casts,Urine 0-1 Normal 0-1 [facility] Comment on above: Order Comment: Name Collection Type:: Clean-Voided Midstream Performed By: #### C BC, ADDONUAPLUS, ESR, CUU, CRP, CREAT #### [address] #### C4, C3 #### [facility] , Ketones Ql (U) Normal Negative [facility] Comment on above: Order Comment: Name Collection Type:: Clean-Voided Midstream Result Comment: Unab le to obtain accurate result due to color interference. Performed By: #### C BC, ADDONUAPLUS, ESR, CUU, CRP, CREAT #### [place] [address] [place] #### C4, C3 #### [facility] , Leukocyte esterase Test strip Ql (U) Normal Negative [facility] Comment on above: Order Comment: Name Collection Type:: Clean-Voided Midstream Result Comment: Unab le to obtain accurate result due to color interference. Performed By: #### C BC, ADDONUAPLUS, ESR, CUU, CRP, CREAT #### [place] [address] [place] #### C4, C3 #### [facility] , Nitrite,Urine Normal Negative [facility] Comment on above: Order Comment: Name Collection Type:: Clean-Voided Midstream Result Comment: Unab le to obtain accurate result due to color interference. Performed By: #### C BC, ADDONUAPLUS, ESR, CUU, CRP, CREAT #### [place] [address] [place] #### C4, C3 #### [facility] , Occult Blood,Urine Normal Negative [facility] Comment on above: Order Comment: Name Collection Type:: Clean-Voided Midstream Result Comment: Unab le to obtain accurate result due to color interference. Performed By: #### C BC, ADDONUAPLUS, ESR, CUU, CRP, CREAT #### [place] [address] [place] #### C4, C3 #### [facility] , pH,Urine Normal 5.0-9.0 [facility] Comment on above: Order Comment: Name Collection Type:: Clean-Voided Midstream Result Comment: Unab le to obtain accurate result due to color interference. Performed By: #### C BC, ADDONUAPLUS, ESR, CUU, CRP, CREAT #### [place] [address] [place] #### C4, C3 #### [facility] , Protein,Urine Normal Negative [facility] Comment on above: Order Comment: Name Collection Type:: Clean-Voided Midstream Result Comment: Unab le to obtain accurate result due to color interference. Performed By: #### C BC, ADDONUAPLUS, ESR, CUU, CRP, CREAT #### [place] [address] [place] #### C4, C3 #### [facility] , RBC,Urine 3-4 Normal 0-4 [facility] Comment on above: Order Comment: Name Collection Type:: Clean-Voided Midstream Performed By: #### C BC, ADDONUAPLUS, ESR, CUU, CRP, CREAT #### [address] #### C4, C3 #### [facility] , Specificy [place],Urine 1.028 Normal 1.001-1.030 [facility] Comment on above: Order Comment: Name Collection Type:: Clean-Voided Midstream Performed By: #### C BC, ADDONUAPLUS, ESR, CUU, CRP, CREAT #### [address] #### C4, C3 #### [facility] , Squamous Epithelial Cell,Urine 5-9 High 0-2 [facility] Comment on above: Order Comment: Name Collection Type:: Clean-Voided Midstream Performed By: #### C BC, ADDONUAPLUS, ESR, CUU, CRP, CREAT #### [address] #### C4, C3 #### [facility] , Urobilinogen,Urine Normal Normal [facility] Comment on above: Order Comment: Name Collection Type:: Clean-Voided Midstream Result Comment: Unab le to obtain accurate result due to color interference. Performed By: #### C BC, ADDONUAPLUS, ESR, CUU, CRP, CREAT #### [place] [address] [place] #### C4, C3 #### [facility] , WBC,Urine 50-100 High 0-4 [facility] Comment on above: Order Comment: Name Collection Type:: Clean-Voided Midstream Performed By: #### C BC, ADDONUAPLUS, ESR, CUU, CRP, CREAT #### [facility] [address] [place] [address] #### C4, C3 #### [facility] , Yeast,Urine Rare Critically abnormal None Seen [facility] Comment on above: Order Comment: Name Collection Type:: Clean-Voided Midstream Result Comment: PERF ORMED BY: [place] [address] PATHOLOGIST DAIRY FARMER KEYON SERNA M.D. Performed By: #### C BC, ADDONUAPLUS, ESR, CUU, CRP, CREAT #### [address] #### C4, C3 #### [facility] , Eosinophils Auto (Bld) [#/Vo l]Ordered By: Rashard Aguilar on 09-12-2023 Eosinophils (Bld) [#/Vol] 0.2 10*3/uL 0.0-0.45 [facility] Eosinophils/100 WBC Auto (Bl d)Ordered By: Rashard Aguilar on 09-12-2023 Eosinophils/100 WBC (Bld) 4.0 % . [facility] Erythrocyte Sedimentation Ra duyen 09-12-2023 ESR (Bld) [Velocity] 23 mm/h Normal 0-29 [facility] Comment on above: Result Comment: PERF ORMED BY: [place] [address] PATHOLOGIST DAIRY FARMER KEYON SERNA M.D. Performed By: #### C BC, ADDONUAPLUS, ESR, CUU, CRP, CREAT #### [address] #### C4, C3 #### [facility] , Erythrocyte distribution wid th Auto (RBC) [Ratio]Ordered By: Rashard Aguilar on 09-12-2023 Erythrocyte distribution width (RBC) [Ratio] 14.3 % 11.9-15.3 [facility] Erythrocyte sedimentation ra te by Photometric methodOrdered By: Rashard Aguilar on 09-12-2023 ESR Photometric method (Bld) [Velocity] 23 mm/hr 0-29 [facility] Hematocrit Auto (Bld) [Volum e fraction]Ordered By: Rashard Aguilar on 09-12-2023 Hematocrit (Bld) [Volume fraction] 39.2 % 34.0-46.4 [facility] Hemoglobin [Mass/volume] in BloodOrdered By: Rashard Aguilar on 09-12-2023 Hemoglobin (Bld) [Mass/Vol] 12.9 g/dL 11.8-15.4 [facility] Ketones Test strip (U) [Mass /Vol]Ordered By: Rashard Aguilar on 09-12-2023 Ketones (U) [Mass/Vol] See comment Negative [facility] Comment on above: Unable to obtain acc urate result due to color interference. Leukocytes [#/volume] correc edwige for nucleated erythrocytes in Blood by Automated counOrdered By: Rashard Aguilar on 09-12-2023 WBC corrected for nucl RBC Auto (Bld) [#/Vol] 5.7 10*3/uL 3.8-11.6 [facility] Lymphocytes Auto (Bld) [#/Vo l]Ordered By: Rashard Aguilar on 09-12-2023 Lymphocytes (Bld) [#/Vol] 1.8 10*3/uL 1.00-4.8 [facility] Lymphocytes/100 WBC Auto (Bl d)Ordered By: Rashard Aguilar on 09-12-2023 Lymphocytes/100 WBC (Bld) 31.9 % . [facility] MCH Auto (RBC) [Entitic mass ]Ordered By: Rashard Aguilar on 09-12-2023 MCH (RBC) [Entitic mass] 31.1 pg 24.7-34.3 [facility] MCHC Auto (RBC) [Mass/Vol]Or dered By: Rashard Aguilar on 09-12-2023 MCHC (RBC) [Mass/Vol] 33.0 g/dL 32.0-35.0 [facility] MCV Auto (RBC) [Entitic vol] Ordered By: Rashard Aguilar on 09-12-2023 MCV (RBC) [Entitic vol] 94.4 fL 80-100 [facility] Monocytes Auto (Bld) [#/Vol] Ordered By: Rashard Aguilar on 09-12-2023 Monocytes (Bld) [#/Vol] 0.5 10*3/uL 0.0-0.8 [facility] Monocytes/100 WBC Auto (Bld) Ordered By: Rashard Aguilar on 09-12-2023 Monocytes/100 WBC (Bld) 8.5 % . [facility] Neutrophils Auto (Bld) [#/Vo l]Ordered By: Rashard Aguilar on 09-12-2023 Neutrophils (Bld) [#/Vol] 3.1 10*3/uL 1.8-7.7 [facility] Neutrophils/100 WBC Auto (Bl d)Ordered By: Rashard Aguilar on 09-12-2023 Neutrophils/100 WBC (Bld) 54.8 % . [facility] No Panel InformationOrdered By: Rashard Aguilar on 09-12-2023 Estimated GFR (CKD-EPI) > 60.0 mL/Min [facility] Pharmacy Creatinine Clearance (Chem N/A [facility] Nucleated erythrocytes [Pres ence] in Blood by Automated countOrdered By: Rashard Aguilar on 09-12-2023 Nucleated RBC Auto Ql (Bld) 0.2 /100{WBC} 0-0.5 [facility] Platelet mean volume Auto (B ld) [Entitic vol]Ordered By: Rashard Aguilar on 09-12-2023 Platelet mean volume (Bld) [Entitic vol] 7.6 fL 6.3-10.7 [facility] Platelets Auto (Bld) [#/Vol] Ordered By: Rashard Aguilar on 09-12-2023 Platelets (Bld) [#/Vol] 263 10*3/uL 150-450 [facility] Protein Auto test strip (U) [Mass/Vol]Ordered By: Rashard Aguilar on 09-12-2023 Protein (U) [Mass/Vol] See comment Negative [facility] Comment on above: Unable to obtain acc urate result due to color interference. RBC Auto (Bld) [#/Vol]Ordere d By: Rashard Aguilar on 09-12-2023 RBC (Bld) [#/Vol] 4.16 10*6/uL 3.60-5.00 [facility] Urine Cultureon 09-12-2023 Bacteria identified Cx Nom (U) <9,000 colonies/ml mixed bacterial skin contaminants 2 Days PERFORMED BY: [place] [address] PATHOLOGIST DAIRY FARMER KEYON SERNA M.D. [facility] Comment on above: Performed By: #### C BC, ADDONUAPLUS, ESR, CUU, CRP, CREAT #### [facility] [address] [place] [address] [place] #### C4, C3 #### [facility] , Urine appearanceOrdered By: Rashard Aguilar on 09-12-2023 Appearance (U) Slightly cloudy Clear [facility] Urine bacteria detection by automated methodOrdered By: Rashard Aguilar on 09-12-2023 Bacteria Auto Ql (U) 2+ None Seen [facility] Urine colorOrdered By: Arthur Aguilar on 09-12-2023 Color (U) [place] Yellow [facility] Urine glucose measurement by automated test strip (mass/volume)Ordered By: Rashard Aguilar on 09-12-2023 Glucose Auto test strip (U) [Mass/Vol] See comment [facility] Comment on above: Unable to obtain acc urate result due to color interference. Urine leukocyte esterase det ection by automated test stripOrdered By: Rashard Aguilar on 09-12-2023 Leukocyte esterase Auto test strip Ql (U) See comment Negative [facility] Comment on above: Unable to obtain acc urate result due to color interference. Urine nitrite detection by a utomated test stripOrdered By: Rashard Aguilar on 09-12-2023 Nitrite Auto test strip Ql (U) See comment Negative [facility] Comment on above: Unable to obtain acc urate result due to color interference. Urobilinogen Test strip (U) [Mass/Vol]Ordered By: Rashard Aguilar on 09-12-2023 Urobilinogen (U) [Mass/Vol] See comment Normal [facility] Comment on above: Unable to obtain acc urate result due to color interference. WBC Auto (Bld) [#/Vol]Ordere d By: Rashard Aguilar on 09-12-2023 WBC (Bld) [#/Vol] 5.7 10*3/uL 3.8-11.6 [facility] Yeast detection in urine sed iment by light microscopyOrdered By: Rashard Galvandes on 09-12-2023 Yeast LM Ql (Urine sed) Rare [HPF] None Seen [facility] pH Auto test strip (U)Ordere d By: Rashard Arboledamiller on 09-12-2023 pH (U) See comment 5.0-9.0 [facility] Comment on above: Unable to [...] Father. Heart disease: Mother and Father. 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 She only started the medication after her heart attack and never exceeds the recommended dose. She visited [facility] due to elevated blood pressure [...] has been treated by several doctors at [facility]'s emergency room. Her nervous system has been [...] with voice recognition artificial intelligence software, specifically [employer], [employer] and or [employer]. Substitutions may have occurred with voice recognition and artificial intelligence software. ATTESTATION: Documentation services were performed after patient or guardian consented to allow [employer] to record this visit. DARVIN display specialist and provider reviewed before signing. DARVIN: [...] Sciatica Procedu (more content not included)... Normal [facility] Comment on above: Result Comment: Elec tronically Signed By: Portillo PIPER, Rahul Varner\.br\Date and Time Signed: 08/27/23 20:52 EST\.br\Electronically Co-Signed By: Padmini Cook\.br\Date and Time Co-Signed: 08/15/23 16:49 EST URINE CULTURE, ROUTINEon Bacteria identified Cx Nom (U) No growth at 48 hours Normal [facility] Comment on above: Performed By: #### L [id number] #### [facility] [address] [place] [address] Urinalysis - AUTOMATEDon Appearance (U) clear [employer] Other Bilirubin Ql (U) Negative [employer] Other Color (U) orange [employer] Other Glucose Ql (U) 100 [employer] Other Hemoglobin Ql (U) small [employer] Other Ketones Ql (U) Negative [employer] Other Leukocyte esterase Test strip Ql (U) large [employer] Other Nitrite Ql (U) Positive [employer] Other pH (U) 5.0 [pH] [employer] Other Protein Ql (U) 100 [employer] Other Specific gravity (U) [Rel density] 1.010 [employer] Other Urobilinogen (U) [Mass/Vol] 1.0 mg/dL [facility] [employer] Other Urinalysis - AUTOMATED [facility] [employer] Other Urine Cultureon 08-17-2023 Bacteria identified Cx Nom (U) <9,000 colonies/ml mixed bacterial skin contaminants 2 Days PERFORMED BY: [place] [address] PATHOLOGIST DAIRY FARMER KEYON SERNA M.D. Normal [facility] Comment on above: Performed By: #### C BC, ADDONUAPLUS, ESR, CUU, CRP, CREAT #### [facility] [address] [place] [address] [place] #### C4, C3 #### [facility] , Bacteria identified Cx Nom (U) [facility] [employer] Other Urine culture routineOrdered By: Shayy Garza on 08-17-2023 Bacteria identified Cx Nom (U) 2 Days [facility] Physician Orderon 08-16-2023 Physician Order [id number]#1.0 0TIFF [facility] Ambulatory Visit Summaryon 1 10-16-2022 Ambulatory [...] 11:00 AM EST With: [place] Where: [facility] Monday 12:15 PM EDT With: Portillo [...] for choosing us for your care. Normal [facility] Urinalysis - AUTOMATEDon Appearance (U) clear [employer] Other Bilirubin Ql (U) Negative [employer] Other Color (U) bright orange [employer] Other Glucose Ql (U) Negative [employer] Other Hemoglobin Ql (U) Negative [employer] Other Ketones Ql (U) Negative [employer] Other Leukocyte esterase Test strip Ql (U) small [employer] Other Nitrite Ql (U) Positive [employer] Other pH (U) 6.0 [pH] [employer] Other Protein Ql (U) Negative [employer] Other Specific gravity (U) [Rel density] >1.010 [employer] Other Urobilinogen (U) [Mass/Vol] 0.2 mg/dL [facility] [employer] Other Urinalysis - AUTOMATED No rth [facility] [employer] Other Urine Cultureon 08-01-2023 Bacteria identified Cx Nom (U) Reason for Exam Dysuria Urine Reason for Exam: Dysuria : Urine No Growth 2 Days PERFORMED BY: [place] [address] PATHOLOGIST DAIRY FARMER KEYON SERNA M.D. Normal [facility] Comment on above: Performed By: #### C BC, ADDONUAPLUS, ESR, CUU, CRP, CREAT #### [facility] [address] [place] [address] [place] #### C4, C3 #### [facility] , Bacteria identified Cx Nom (U) [facility] [employer] Other Urine culture routineOrdered By: Mary Toure on 08-01-2023 Bacteria identified Cx Nom (U) No Growth 2 Days [facility] Outside Recordson 07-27-2023 Outside Records [id number]#1.0 0TIFF [facility] Consultation Noteon 07-25-20 Consultation Note [id number]#1.0 0TIFF Normal [facility] ED Note-Physicianon 07-19-20 ED Note-Physician [id number]#1.0 0TIFF Normal [facility] RAD - MISCon 07-19-2023 RAD - MISC [id number]#1.0 0TIFF [facility] Heart and Vascular Office/Cl inic Noteon 07-15-2023 [...] with voice recognition artificial intelligence software, specifically [employer], [employer] and or [employer]. Substitutions may have occurred due to the inherent limitations of voice recognition and artificial intelligence software. ATTESTATION: Documentation services were performed after the patient or guardian consented to allow [employer] to record this visit. DARVIN display specialist and provider reviewed before signing. DARVIN: Veronica Anderson Lonnie Follow-up No qualifying data available Problem List/Past [...] mg T (more content not included)... Normal [facility] Comment on above: Result Comment: [...] her insurance companies. Her urologist is at [facility] in [place], [place], and they were having problems with [...] with voice recognition artificial intelligence software, specifically [employer], [employer] and or [employer]. Substitutions may have occurred with voice recognition and artificial intelligence software. ATTESTATION: Documentation services were performed after patient or guardian consented to allow [employer] to record this visit. DARVIN display specialist and provider reviewed before signing. DARVIN: [...] oral table (more content not included)... Normal [facility] Comment on above: Result Comment: Elec tronically Signed By: Portillo PIPER, Rahul Varner\.br\Date and Time Signed: 07/15/23 12:13 EST\.br\Electronically Co-Signed By: Ruben Bernal\.br\Date and Time Co-Signed: 05/26/23 12:49 EDT Consultation Noteon 07-06-20 Consultation Note [id number]#1.00 TIFF [facility] Consultation Noteon 07-03-20 Consultation Note [id number]#1.0 0TIFF [facility] Family Medicine Office/Clini c Noteon 06-27-2023 [...] it. She voiced her dissatisfaction with her oven loader, having seen many but not finding one who would truly listen to her. She mentioned that one of them would just take blood samples every visit, making it difficult for her to communicate with him. She informed this oven loader about a blood test for her bladder that revealed 100 stones, but he dismissed it. However, he later acknowledged that it did indeed occur. She expressed her desire to seek a different oven loader due to these experiences. She states that [...] Despite feeling misunderstood, she acknowledges the other constitution party's perspective. 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 Normal [facility] Comment on above: Result Comment: Elec tronically Signed By: Lidya Almanzar MD\.br\Date and Time Signed: 06/27/23 08:27 EST\.br\Electronically Co-Signed By: Lucia Ramos\.br\Date and Time Co-Signed: 06/22/23 20:26 EDT Behavioral Health Sensitive Noteon 06-26-2023 Behavioral Health Sensitive Note Spoke with patient and she has decided to switch primary care physicians. Clinician has continued to offer services as needed. 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 Normal [facility] Ambulatory Visit Summaryon 1 08-22-2022 [...] Follow-Up Appointments Monday 9:30 AM EST Where: [facility] Heart and Vascular Office/Cl inic Noteon [...] her blood pressure. She consulted her regular nurse navigator when her symptoms began. During the visit, she recalled an incident from 2 months ago when she felt chest pressure for a duration of 10 minutes. The nurse navigator reassured her that her condition, including her blood pressure concern, was normal. Despite her open-heart surgery that took place on May 10, 2020, the nurse navigator conveyed that the period since the procedure [...] up in 4 to 6 weeks in [place] [employer]. 1. Chest pain (R07.9: Chest pain, unspecified) [...] with voice recognition artificial intelligence software, specifically [employer] (more content not included)... Normal [facility] Comment on above: Result Comment: [...] someone. She requires a refill of her [place] prescription. She was advised not to take benzodiazepines, which include Xanax and the [place], simultaneously. She primarily uses [place] to alleviate joint pain and arthritis symptoms. She mentions being diagnosed with lupus at the age of 35 [address] Torres in [place]. She also indicates that she is currently [...] will go ahead and send her to [facility] psychiatry to help with medications. 2. Primary fibromyalgia syndrome (M79.7: Fibromyalgia) We will refill the patient's [place] for 1 month and we will see her back in a month. Discussed the pros and cons of using benzo and a narcotic at the same time. Patient understands the concerns. Patient has been a long-term user of the opioids and at this time is stable. 3. 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 4. Irritable bowel syndrome (K58.9: Irritable bowel syndrome without diarrhea) (more content not included)... Normal [facility] Comment on above: Result Comment: Elec tronically Signed By: Lidya Almanzar MD\.br\Date and Time Signed: 06/06/23 07:46 EDT\.br\Electronically Co-Signed By: Lucia Ramos\.br\Date and Time Co-Signed: 05/30/23 17:17 EDT Physician Orderon 06-02-2023 Physician Order [id number]#1.0 0TIFF Normal [facility] Medication Consenton 023 Medication Consent [id number]#1.0 0TIFF Normal [facility] Physician Referralon 023 Physician Referral [id number]#1. 00TIFF Normal [facility] Ambulatory Visit Summaryon 1 Ambulatory [...] Follow-Up Appointments 2022 3:00 PM EDT With: Rahul Salas MD Where: [facility] [place] Monday 1:00 PM EDT With: [place] Where: [facility] [place] Monday 2:40 PM EST With: Lidya Almanzar MD Where: [facility] Invalid Interpretation Code [address] [place] [address]- \.br \ Someone Will Contact You Regarding These Appointments \.br\ [facility] External Ambulatory Referral, Psychiatry, Community health services in [place] 05/30/23 14:54:00 EDT, Anxiety [facility] Pre-Visit Planningon 023 Pre-Visit Planning - From: Yuliya ORTEZ, Kim To: Lidya Almanzar MD; Sent: 05/29/2023 13:24:19 EDT Subject: Pre-Visit Planning Due Date/Time: 05/29/2023 13:24:00 EDT Caller Name: TEA RAHMAN; Caller Number: , Hi Dr. Almanzar, *Based on your response below, can you please update the chronic problem list and address during this visit if appropriate?* During a pre-visit planning chart review, I noted the following documentation in the medical record: Current medications: Hydroxychloroquine 12/21/2022 office note-When the patient was diagnosed with lupus, she was referred to a oven loader in [place]. She tried a different oven loader in [place] where she stayed until that provider retired. [...] very fatigued. 03/20/2023 office note- has a oven loader not working out for her wants to find a new one needs her proctofoam refilled for the hemorrhoids and also dr santana gave her hyoscamine for blow outs but refills ran out as she doesn't use all the time, can she get more recent phq9-15 recent leanne-15 urine collected and processed 03/21/2023 [facility] page 1 has major depressive disorder single episode mild and systemic lupus erythematosus 03/28/2023 office note-Patient is taking half a tablet of [place] twice daily and steroids for her fibromyalgia, lupus, and arthritis. She reports continued pain in her shoulders and upper back. She was unable to receive epidural in the sciatic nerve due to miscommunication regarding the appointment. She requests prescription of hydroxychloroquine to take as needed for flares. She is looking for a oven loader. Based on your medical judgment, can you [...] feel free to contact me at extension [phone]. Thank you! BRANDON Coffman, RN, CCM, CCDS, CCDS-O Invalid Interpretation Code [address] [facility] Pre-Visit Planning - From: Yuliya ORTEZ, Kim To: Yohan PIPER, Lidya Lal; Sent: 05/29/2023 13:16:19 EDT Subject: Pre-Visit Planning Due Date/Time: 05/29/2023 13:16:00 EDT Caller Name: TEA RAHMAN; Caller Number: , Nm Dr. Almanzar, *Based on your response below, [...] as well as the Xanax PRN. 03/21/2023 [facility] page 1 has major depressive disorder [...] feel free to contact me at extension [phone]. Thank you! Kim Dwyer, SUREKHAN, RN, CCM, CCDS, CCDS-O Invalid Interpretation Code [address] [facility] Physician Orderon 05-26-2023 Physician Order [id number]#1. 00TIFF Normal [facility] NM Myocardial Spect Rest/Str ess 1 Dayon [...] 10.9 Stress Dose (mCi Tc99M Cardiolite): 30.0 [facility] Stress EKG Tracingson 2022 Stress EKG Tracings [id number]#1. 00CD:127 [facility] Consent for Treatmenton 04-22 Consent for Treatment [id number]#1.0 0CD:127 [facility] Consent for Treatmenton 04-21 Consent for Treatment [id number] [id number]#1.0 0CD:127 [facility] Consultation Noteon 05-08-20 23 Consultation Note [id number]#1.0 0CD:127 [facility] Consultation Note [id number]#1.00 CD:127 [facility] Urine Cultureon 05-04-2023 Bacteria identified Cx Nom (U) Reason for Exam Dysuria Urine 50,000 colonies/ml mixed bacterial skin contaminants 2 Days PERFORMED BY: [place] [address] PATHOLOGIST DAIRY FARMER KEYON SERNA M.D. [facility] Comment on above: Performed By: #### C UU #### [address] Physician Orderon 04-21-2023 Physician Order [id number]#1.0 0CD:127 [facility] Physician Referralon 023 Physician Referral [id number]#1. 00CD:127 [facility] Family Medicine Office/Clini c Noteon 04-17-2023 Family [...] Norvasc. Patient will follow-up with cardiology. Ordered: [facility] Internal Ambulatory Referral 2. Post-nasal drip (R09.82: Postnasal drip) ? We will have the patient try the Zyrtec again. Discussed how the Zyrtec I do not believe is actually messing with her stomach but more the mucus. Ordered: [facility] Internal Ambulatory Referral 3. 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 We will send to cardiology for further recommendations. Ordered: [facility] Internal Ambulatory Referral 4. BMI 28.0-28.9,adult (Z68.28: Body mass index [BMI] 28.0-28.9, adult) BMI education given. Ordered: Body Mass Index (BMI) documented 3008F Current tobacco non-user 1036F Depression Screening Negative 3352F [facility] Internal Ambulatory Referral Most recent diastolic blood pressure <80 mm Hg 3078F Patient screen for fall risk: no falls in last year or 1 fall with no injury in last year 1101F Systolic BP <130 mm Hg (Most Recent) 3074F 5. Overweight (E66.3: Overweight) As above. Ordered: Body Mass Index (BMI) documented 3008F Current tobacco non-user 1036F Depression Screening Negative 3352F [facility] Internal Ambulatory Referral Most recent diastolic blood [...] Allergies Compazine (more content not included)... Normal [facility] Comment on above: Result Comment: Elec tronically Signed By: Yohan PIPER, Lidya Gómez.br\Date and Time Signed: 04/17/23 18:28 EDT Consultation Noteon 04-12-20 Consultation Note [id number]#1.0 0CD:127 [facility] Consultation Note [id number]#1.0 0CD:127 [facility] Family Medicine Office/Clini c Noteon 03-29-2023 [...] Patient is taking half a tablet of [place] twice daily and steroids for her fibromyalgia, lupus, and arthritis. She reports continued pain in her shoulders and upper back. She was unable to receive epidural in the sciatic nerve due to miscommunication regarding the appointment. She requests prescription of hydroxychloroquine to take as needed for flares. She is looking for a oven loader. The adult male reports the patient presented [...] well controlled with a half of a [place] a day. 3. 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 4. BMI 28.0-28.9,adult (Z68.28: Body mass index [BMI] 28.0-28.9, adult) BMI education given. 5. OA - Osteoarthritis of knee (M17.10: Unilateral primary osteoarthritis, unspecified knee) Again, patient uses the steroids to help and patient is doing well with the use of half a [place] twice a day. 6. Overweight (E66.3: Overweight) [...] with voice recognition artificial intelligence software, specifically [employer], [employer] and or [employer]. Substitutions may have occurred due to the inher (more content not included)... Normal [facility] Comment on above: Result Comment: Elec tronically Signed By: Lidya Almanzar MD\.br\Date and Time Signed: 03/29/23 09:38 EDT\.br\Electronically Co-Signed By: Lucia Ramos\.br\Date and Time Co-Signed: 03/28/23 19:25 EDT RAD - MISCon 03-29-2023 RAD - MIS [id number]#1.0 0CD:127 Normal [facility] Ambulatory Visit Summaryon 0 03-28-2023 [...] PM EDT With: Lidya Almanzar MD Where: [facility] Ambulatory Visit Summary TEA RAHMAN :1945 [...] PM EDT With: Lidya Almanzar MD Where: [facility] [id number]#1.0 0CD:127 [facility] Ambulatory Visit Summaryon 0 03-20-2023 Ambulatory Visit Summary TEA RAHMAN :1945 Visit Date:03/20/2023 Ambulatory Visit Instructions Your Diagnosis Abdominal pain Primary fibromyalgia syndrome BMI 29.0-29.9,adult Over weight Tests Performed Urnls Dip Stick Non-Auto w/o Micrscpy POC 01763 Your Care Team Attending Physician - Lidya [...] EDT With: Yohan PIPER, Lidya Lal Where: [facility] Family Medicine Office/Clini c Noteon 03-20-2023 [...] wasn't formed does have hemorrhoids has a oven loader not working out for her wants to [...] ProctoFoam for Hemorrhoids - Would like another oven loader. Review of Systems PHQ Score Initial Depression [...] Urnls Dip Stick Non-Auto w/o Micrscpy POC 00387 2. Primary fibromyalgia syndrome (M79.7: Fibromyalgia) - Will do a small steroid burst. - Then when patient finds a better Rn Clinical Documentation we will refer Ordered: methylPREDNISolone, = 1 packet(s), Oral, As Directed, as directed on package labeling, X 6 day(s), # 21 tab(s), Refills(s) 0, Pharmacy: [facility] #[id number], 167, cm, 03/20/23 11:45:00 EDT, Height/Length Dosing, 80.9, kg, 03/20/23 11:45:00 EDT, Weight Dosing 3. Hemorrhoids (K64.9: Unspecified hemorrhoids) - Proctofoam 4. BMI 29.0-29.9,adult (Z68.29: Body mass index [BMI] 29.0-29.9, adult) - BMI education given Ordered: methylPREDNISolone, = 1 packet(s), Oral, As Directed, as directed on package labeling, X 6 day(s), # 21 tab(s), Refills(s) 0, Pharmacy: [facility] #[id number], 167, cm, 03/20/23 11:45:00 EDT, Height/Length Dosing, [...] day(s), # 21 tab(s), Refills(s) 0, Pharmacy: [facility] #[id number], 167, cm, 03/20/23 11:45:00 EDT, Height/Length Dosing, [...] elías, Rectal, TID, 10 gram, Refill(s) 0, [facility] #[id number], 167, cm, 03/20/23 11:45:00 EDT, Height/Length Dosing, [...] Medications acetaminophen-hydrocod one (more content not included)... [facility] Comment on above: Result Comment: Elec tronically Signed By: Yohan PIPER, Lidya Gómez.br\Date and Time Signed: 03/20/23 12:22 EDT Consultation Noteon 03-09-20 Consultation Note [id number]#1.0 0CD:127 [facility] XR chest 2V*on 03-02-2023 XR chest 2V* [facility] [place] [address] [place] [address] XRay Report Signed Patient: Tea Rahman MR#: [id number] : 1945 Acct:[id number] Age/Sex: 77 / F ADM Date: 03/02/23 Loc: [facility] Room: Type: [facility] Attending Dr: Rashard Aguilar MD Copies to: [...] Zen Yo M.D.03/02/2023 4:11 PM Dictation Location: [place] [address] Transcribed By: [facility] 03/02/231610 Dictated By: Zen Yo DO 03/02/231609 Signed By: 03/02/231610 [facility] Consultation Noteon 02-07-20 Consultation Note [id number]#1.0 0CD:127 Normal [place] [facility] Amorphous urine sedimentOrde red By: Rashard Aguilar on 01-24-2023 Amorphous sediment LM Ql (Urine sed) See comment Negative [facility] Comment on above: Unable to obtain acc urate result due to color interference. Automated epithelial cells c ount in urine sediment (number/area)Ordered By: Rashard Aguilar on 01-24-2023 Epithelial cells Auto (Urine sed) [#/Area] 5-9 [HPF] 0-2 [facility] Automated erythrocytes count in urine sediment (number/area)Ordered By: Rashard Aguilar on 01-24-2023 RBC Auto (Urine sed) [#/Area] None seen [HPF] 0-4 [facility] Automated leukocytes count i n urine sediment (number/area)Ordered By: Rashard Aguilar on 01-24-2023 WBC Auto (Urine sed) [#/Area] 5-9 [HPF] 0-4 [facility] Automated urine specific gra vity by refractometryOrdered By: Rashard Aguilar on 01-24-2023 Specific gravity Refractometry automated (U) [Rel density] 1.015 1.001-1.030 [facility] Basophils Auto (Bld) [#/Vol] Ordered By: Rashard Aguilar on 01-24-2023 Basophils (Bld) [#/Vol] 0.0 10*3/uL 0.0-0.2 [facility] Basophils/100 WBC Auto (Bld) Ordered By: Rashard Aguilar on 01-24-2023 Basophils/100 WBC (Bld) 0.5 % . [facility] Bilirubin Auto test strip Ql (U)Ordered By: Rashard Aguilar on 01-24-2023 Bilirubin Ql (U) See comment Negative [facility] Comment on above: Unable to obtain acc urate result due to color interference. C reactive protein [Mass/vol ume] in Serum or PlasmaOrdered By: Rashard Aguilar on 01-24-2023 CRP [Mass/Vol] 0.6 mg/dL 0.0-0.5 [facility] C-Reactive Proteinon 023 C-Reactive Protein 0.6 mg/dL High 0.0-0.5 [facility] Comment on above: Result Comment: PERF ORMED BY: [place] [address] PATHOLOGIST DAIRY FARMER KEYON SERNA M.D. Performed By: #### C BC, ADDONUAPLUS, ESR, CUU, CRP, CREAT #### [address] #### C4, C3 #### [facility] , Complement C3on 01-24-2023 Complement C3 162 mg/dL Normal 82-167 [facility] Comment on above: Result Comment: Perf ormed at: - [facility] [address] [id number] [employer] Associate: Paul Dumont PhD, Phone: [phone] Performed By: #### C BC, ADDONUAPLUS, ESR, CUU, CRP, CREAT #### [address] #### C4, C3 #### [facility] , Complement C4on 01-24-2023 Complement C4 36 mg/dL Normal 12-38 [facility] Comment on above: Result Comment: PERF ORMED BY: [place] [address] PATHOLOGIST DAIRY FARMER KEYON SERNA M.D. Performed By: #### C BC, ADDONUAPLUS, ESR, CUU, CRP, CREAT #### [address] #### C4, C3 #### [facility] , Complete Blood Count Auto Di ffon 01-24-2023 Basophils (Bld) [#/Vol] 0.0 10*3/uL Normal 0.0-0.2 [facility] Comment on above: Performed By: #### C BC, ADDONUAPLUS, ESR, CUU, CRP, CREAT #### [address] #### C4, C3 #### [facility] , Basophils/100 WBC (Bld) 0.5 % Normal . [facility] Comment on above: Performed By: #### C BC, ADDONUAPLUS, ESR, CUU, CRP, CREAT #### [place] [address] [place] #### C4, C3 #### [facility] , Eosinophils (Bld) [#/Vol] 0.2 10*3/uL Normal 0.0-0.45 [facility] Comment on above: Performed By: #### C BC, ADDONUAPLUS, ESR, CUU, CRP, CREAT #### [address] #### C4, C3 #### [facility] , Eosinophils/100 WBC (Bld) 3.3 % Normal . [facility] Comment on above: Performed By: #### C BC, ADDONUAPLUS, ESR, CUU, CRP, CREAT #### [place] [address] [place] #### C4, C3 #### [facility] , Erythrocyte distribution width (RBC) [Ratio] 14.2 % Normal 11.9-15.3 [facility] Comment on above: Performed By: #### C BC, ADDONUAPLUS, ESR, CUU, CRP, CREAT #### [place] [address] [place] #### C4, C3 #### [facility] , Hematocrit (Bld) [Volume fraction] 40.7 % Normal 34.0-46.4 [facility] Comment on above: Performed By: #### C BC, ADDONUAPLUS, ESR, CUU, CRP, CREAT #### [place] [address] [place] #### C4, C3 #### [facility] , Hemoglobin (Bld) [Mass/Vol] 13.2 g/dL Normal 11.8-15.4 [facility] Comment on above: Performed By: #### C BC, ADDONUAPLUS, ESR, CUU, CRP, CREAT #### [place] [address] [place] #### C4, C3 #### [facility] , Lymphocytes (Bld) [#/Vol] 1.9 10*3/uL Normal 1.00-4.8 [facility] Comment on above: Performed By: #### C BC, ADDONUAPLUS, ESR, CUU, CRP, CREAT #### [place] [address] [place] #### C4, C3 #### [facility] , Lymphocytes/100 WBC (Bld) 30.8 % Normal . [facility] Comment on above: Performed By: #### C BC, ADDONUAPLUS, ESR, CUU, CRP, CREAT #### [address] #### C4, C3 #### [facility] , MCH (RBC) [Entitic mass] 29.5 pg Normal 24.7-34.3 [facility] Comment on above: Performed By: #### C BC, ADDONUAPLUS, ESR, CUU, CRP, CREAT #### [place] [address] [place] #### C4, C3 #### [facility] , MCV (RBC) [Entitic vol] 90.9 fL Normal 80-100 [facility] Comment on above: Performed By: #### C BC, ADDONUAPLUS, ESR, CUU, CRP, CREAT #### [place] [address] [place] #### C4, C3 #### [facility] , Mean Corpuscular HGB Conc 32.5 g/dL Normal 32.0-35.0 [facility] Comment on above: Performed By: #### C BC, ADDONUAPLUS, ESR, CUU, CRP, CREAT #### [place] [address] [place] #### C4, C3 #### [facility] , Monocytes (Bld) [#/Vol] 0.4 10*3/uL Normal 0.0-0.8 [facility] Comment on above: Performed By: #### C BC, ADDONUAPLUS, ESR, CUU, CRP, CREAT #### [place] [address] [place] #### C4, C3 #### [facility] , Monocytes/100 WBC (Bld) 7.1 % Normal . [facility] Comment on above: Performed By: #### C BC, ADDONUAPLUS, ESR, CUU, CRP, CREAT #### [place] [address] [place] #### C4, C3 #### [facility] , Neutrophils (Bld) [#/Vol] 3.7 10*3/uL Normal 1.8-7.7 [facility] Comment on above: Performed By: #### C BC, ADDONUAPLUS, ESR, CUU, CRP, CREAT #### [address] #### C4, C3 #### [facility] , Neutrophils/100 WBC (Bld) 58.3 % Normal . [facility] Comment on above: Performed By: #### C BC, ADDONUAPLUS, ESR, CUU, CRP, CREAT #### [place] [address] [place] #### C4, C3 #### [facility] , NRBC% 0.1 /100{WBC} Normal 0-0.5 [facility] Comment on above: Performed By: #### C BC, ADDONUAPLUS, ESR, CUU, CRP, CREAT #### [address] [place] [address] [place] #### C4, C3 #### [facility] , Platelet mean volume (Bld) [Entitic vol] 7.3 fL Normal 6.3-10.7 [facility] Comment on above: Performed By: #### C BC, ADDONUAPLUS, ESR, CUU, CRP, CREAT #### [facility] [address] [place] [address] [place] #### C4, C3 #### [facility] , Platelets (Bld) [#/Vol] 239 10*3/uL Normal 150-450 [facility] Comment on above: Performed By: #### C BC, ADDONUAPLUS, ESR, CUU, CRP, CREAT #### [address] #### C4, C3 #### [facility] , RBC (Bld) [#/Vol] 4.48 10*6/uL Normal 3.60-5.00 [facility] Comment on above: Performed By: #### C BC, ADDONUAPLUS, ESR, CUU, CRP, CREAT #### [address] #### C4, C3 #### [facility] , WBC (Bld) [#/Vol] 6.3 10*3/uL Normal 3.8-11.6 [facility] Comment on above: Performed By: #### C BC, ADDONUAPLUS, ESR, CUU, CRP, CREAT #### [place] [address] [place] #### C4, C3 #### [facility] , Creatinineon 01-24-2023 Creatinine [Mass/Vol] 0.96 mg/dL Normal 0.60-1.20 [facility] Comment on above: Performed By: #### C BC, ADDONUAPLUS, ESR, CUU, CRP, CREAT #### [place] [address] [place] #### C4, C3 #### [facility] , GFR/1.73 sq M.predicted MDRD (S/P/Bld) [Vol rate/Area] mL/min/{1.73_m2} Normal [facility] Comment on above: Performed By: #### C BC, ADDONUAPLUS, ESR, CUU, CRP, CREAT #### [facility] [address] [place] [address] [place] #### C4, C3 #### [facility] , Creatinine [Mass/volume] in Serum or PlasmaOrdered By: Rashard Aguilar on 01-24-2023 Creatinine [Mass/Vol] 0.96 mg/dL 0.60-1.20 [facility] Dipstick and Microscopicon 0 01-24-2023 Appearance (U) Slightly Cloudy Critically abnormal Clear [facility] Comment on above: Order Comment: Name Collection Type:: Clean-Voided Midstream Performed By: #### C BC, ADDONUAPLUS, ESR, CUU, CRP, CREAT #### [facility] [address] [place] [address] [place] #### C4, C3 #### [facility] , Bacteria,Urine 1+ High None Seen [facility] Comment on above: Order Comment: Name Collection Type:: Clean-Voided Midstream Performed By: #### C BC, ADDONUAPLUS, ESR, CUU, CRP, CREAT #### [place] [address] [place] #### C4, C3 #### [facility] , Bilirubin,Urine Normal Negative [facility] Comment on above: Order Comment: Name Collection Type:: Clean-Voided Midstream Result Comment: Unab le to obtain accurate result due to color interference. Performed By: #### C BC, ADDONUAPLUS, ESR, CUU, CRP, CREAT #### [facility] [address] [place] [address] [place] #### C4, C3 #### [facility] , Color (U) [place] Critically abnormal Yellow [facility] Comment on above: Order Comment: Name Collection Type:: Clean-Voided Midstream Performed By: #### C BC, ADDONUAPLUS, ESR, CUU, CRP, CREAT #### [address] #### C4, C3 #### [facility] , Glucose Ql (U) Normal Normal [facility] Comment on above: Order Comment: Name Collection Type:: Clean-Voided Midstream Result Comment: Unab le to obtain accurate result due to color interference. Performed By: #### C BC, ADDONUAPLUS, ESR, CUU, CRP, CREAT #### [address] #### C4, C3 #### [facility] , Ketones Ql (U) Normal Negative [facility] Comment on above: Order Comment: Name Collection Type:: Clean-Voided Midstream Result Comment: Unab le to obtain accurate result due to color interference. Performed By: #### C BC, ADDONUAPLUS, ESR, CUU, CRP, CREAT #### [address] #### C4, C3 #### [facility] , Leukocyte esterase Test strip Ql (U) Normal Negative [facility] Comment on above: Order Comment: Name Collection Type:: Clean-Voided Midstream Result Comment: Unab le to obtain accurate result due to color interference. Performed By: #### C BC, ADDONUAPLUS, ESR, CUU, CRP, CREAT #### [facility] [address] [place] [address] [place] #### C4, C3 #### [facility] , Nitrite,Urine Normal Negative [facility] Comment on above: Order Comment: Name Collection Type:: Clean-Voided Midstream Result Comment: Unab le to obtain accurate result due to color interference. Performed By: #### C BC, ADDONUAPLUS, ESR, CUU, CRP, CREAT #### [place] [address] [place] #### C4, C3 #### [facility] , Occult Blood,Urine Normal Negative [facility] Comment on above: Order Comment: Name Collection Type:: Clean-Voided Midstream Result Comment: Unab le to obtain accurate result due to color interference. Performed By: #### C BC, ADDONUAPLUS, ESR, CUU, CRP, CREAT #### [address] #### C4, C3 #### [facility] , pH,Urine Normal 5.0-9.0 [facility] Comment on above: Order Comment: Name Collection Type:: Clean-Voided Midstream Result Comment: Unab le to obtain accurate result due to color interference. Performed By: #### C BC, ADDONUAPLUS, ESR, CUU, CRP, CREAT #### [place] [address] [place] #### C4, C3 #### [facility] , Protein,Urine Normal Negative [facility] Comment on above: Order Comment: Name Collection Type:: Clean-Voided Midstream Result Comment: Unab le to obtain accurate result due to color interference. Performed By: #### C BC, ADDONUAPLUS, ESR, CUU, CRP, CREAT #### [place] [address] [place] #### C4, C3 #### [facility] , RBC,Urine None Seen Normal 0-4 [facility] Comment on above: Order Comment: Name Collection Type:: Clean-Voided Midstream Performed By: #### C BC, ADDONUAPLUS, ESR, CUU, CRP, CREAT #### [address] #### C4, C3 #### [facility] , Specificy [place],Urine 1.015 Normal 1.001-1.030 [facility] Comment on above: Order Comment: Name Collection Type:: Clean-Voided Midstream Performed By: #### C BC, ADDONUAPLUS, ESR, CUU, CRP, CREAT #### [facility] [address] [place] [address] #### C4, C3 #### [facility] , Squamous Epithelial Cell,Urine 5-9 High 0-2 [facility] Comment on above: Order Comment: Name Collection Type:: Clean-Voided Midstream Performed By: #### C BC, ADDONUAPLUS, ESR, CUU, CRP, CREAT #### [address] #### C4, C3 #### [facility] , Urobilinogen,Urine Normal Normal [facility] Comment on above: Order Comment: Name Collection Type:: Clean-Voided Midstream Result Comment: Unab le to obtain accurate result due to color interference. Performed By: #### C BC, ADDONUAPLUS, ESR, CUU, CRP, CREAT #### [facility] [address] [place] [address] #### C4, C3 #### [facility] , WBC,Urine 5-9 High 0-4 [facility] Comment on above: Order Comment: Name Collection Type:: Clean-Voided Midstream Performed By: #### C BC, ADDONUAPLUS, ESR, CUU, CRP, CREAT #### [address] #### C4, C3 #### [facility] , Yeast,Urine 3+ Critically abnormal None Seen [facility] Comment on above: Order Comment: Name Collection Type:: Clean-Voided Midstream Result Comment: PERF ORMED BY: [place] [address] PATHOLOGIST DAIRY FARMER KEYON SERNA M.D. Performed By: #### C BC, ADDONUAPLUS, ESR, CUU, CRP, CREAT #### [facility] [address] [place] [address] [place] #### C4, C3 #### [facility] , Eosinophils Auto (Bld) [#/Vo l]Ordered By: Rashard Aguilar on 01-24-2023 Eosinophils (Bld) [#/Vol] 0.2 10*3/uL 0.0-0.45 [facility] Eosinophils/100 WBC Auto (Bl d)Ordered By: Rashard Aguilar on 01-24-2023 Eosinophils/100 WBC (Bld) 3.3 % . [facility] Erythrocyte Sedimentation Ra duyen 01-24-2023 ESR (Bld) [Velocity] 38 mm/h High 0-29 [facility] Comment on above: Result Comment: PERF ORMED BY: [address] [place] [address] PATHOLOGIST DAIRY FARMER KEYON SERNA M.D. Performed By: #### C BC, ADDONUAPLUS, ESR, CUU, CRP, CREAT #### [facility] [address] #### C4, C3 #### [facility] , Erythrocyte distribution wid th Auto (RBC) [Ratio]Ordered By: Rashard Aguilar on 01-24-2023 Erythrocyte distribution width (RBC) [Ratio] 14.2 % 11.9-15.3 [facility] Erythrocyte sedimentation ra te by Photometric methodOrdered By: Rashard Aguilar on 01-24-2023 ESR Photometric method (Bld) [Velocity] 38 mm/hr 0-29 [facility] Hematocrit Auto (Bld) [Volum e fraction]Ordered By: Rashard Aguilar on 01-24-2023 Hematocrit (Bld) [Volume fraction] 40.7 % 34.0-46.4 [facility] Hemoglobin [Mass/volume] in BloodOrdered By: Rashard Aguilar on 01-24-2023 Hemoglobin (Bld) [Mass/Vol] 13.2 g/dL 11.8-15.4 [facility] Ketones Test strip (U) [Mass /Vol]Ordered By: Rashard Agiular on 01-24-2023 Ketones (U) [Mass/Vol] See comment Negative [facility] Comment on above: Unable to obtain acc urate result due to color interference. Leukocytes [#/volume] correc edwige for nucleated erythrocytes in Blood by Automated counOrdered By: Rashard Aguilar on 01-24-2023 WBC corrected for nucl RBC Auto (Bld) [#/Vol] 6.3 10*3/uL 3.8-11.6 [facility] Lymphocytes Auto (Bld) [#/Vo l]Ordered By: Rashard Aguilar on 01-24-2023 Lymphocytes (Bld) [#/Vol] 1.9 10*3/uL 1.00-4.8 [facility] Lymphocytes/100 WBC Auto (Bl d)Ordered By: Rashard Aguilar on 01-24-2023 Lymphocytes/100 WBC (Bld) 30.8 % . [facility] MCH Auto (RBC) [Entitic mass ]Ordered By: Rashard Aguilar on 01-24-2023 MCH (RBC) [Entitic mass] 29.5 pg 24.7-34.3 [facility] MCHC Auto (RBC) [Mass/Vol]Or dered By: Rashard Aguilar on 01-24-2023 MCHC (RBC) [Mass/Vol] 32.5 g/dL 32.0-35.0 [facility] MCV Auto (RBC) [Entitic vol] Ordered By: Rashard Aguilar on 01-24-2023 MCV (RBC) [Entitic vol] 90.9 fL 80-100 [facility] Monocytes Auto (Bld) [#/Vol] Ordered By: Rashard Aguilar on 01-24-2023 Monocytes (Bld) [#/Vol] 0.4 10*3/uL 0.0-0.8 [facility] Monocytes/100 WBC Auto (Bld) Ordered By: Rashard Aguilar on 01-24-2023 Monocytes/100 WBC (Bld) 7.1 % . [facility] Neutrophils Auto (Bld) [#/Vo l]Ordered By: Rashard Aguilar on 01-24-2023 Neutrophils (Bld) [#/Vol] 3.7 10*3/uL 1.8-7.7 [facility] Neutrophils/100 WBC Auto (Bl d)Ordered By: Rashard Aguilar on 01-24-2023 Neutrophils/100 WBC (Bld) 58.3 % . [facility] No Panel InformationOrdered By: Rashard Aguilar on 01-24-2023 Estimated GFR (CKD-EPI) > 60.0 mL/Min [facility] Pharmacy Creatinine Clearance (Chem N/A [facility] Nucleated erythrocytes [Pres ence] in Blood by Automated countOrdered By: Rashard Aguilar on 01-24-2023 Nucleated RBC Auto Ql (Bld) 0.1 /100{WBC} 0-0.5 [facility] Platelet mean volume Auto (B ld) [Entitic vol]Ordered By: Rashard Aguilar on 01-24-2023 Platelet mean volume (Bld) [Entitic vol] 7.3 fL 6.3-10.7 [facility] Platelets Auto (Bld) [#/Vol] Ordered By: Rashard Aguilar on 01-24-2023 Platelets (Bld) [#/Vol] 239 10*3/uL 150-450 [facility] Protein Auto test strip (U) [Mass/Vol]Ordered By: Rashard Aguilar on 01-24-2023 Protein (U) [Mass/Vol] See comment Negative [facility] Comment on above: Unable to obtain acc urate result due to color interference. RBC Auto (Bld) [#/Vol]Ordere d By: Rashard Aguilar on 01-24-2023 RBC (Bld) [#/Vol] 4.48 10*6/uL 3.60-5.00 [facility] Serum or plasma complement C 3 measurement (mass/volume)Ordered By: Rashard Aguilar on 01-24-2023 Complement C3 [Mass/Vol] 162 mg/dL 82-167 [facility] Comment on above: Performed at: [address] [id number] Director: Paul Dumont PhD, Phone: [phone] Serum or plasma complement C 4 measurement (mass/volume)Ordered By: Rashard Aguilar on 01-24-2023 Complement C4 [Mass/Vol] 36 mg/dL 12-38 [facility] Urine Cultureon 01-24-2023 Bacteria identified Cx Nom (U) ORGANISM: Filomena glabrata (O:CANGLA) Aladdin Count 20,000 PERFORMED BY: [place] [address] PATHOLOGIST DAIRY FARMER KEYON SERNA M.D. [facility] Comment on above: Performed By: #### C BC, ADDONUAPLUS, ESR, CUU, CRP, CREAT #### [facility] [address] [place] [address] [place] #### C4, C3 #### [facility] , Urine appearanceOrdered By: Rashard Aguilar on 01-24-2023 Appearance (U) Slightly cloudy Clear [facility] Urine bacteria detection by automated methodOrdered By: Rashard Aguilar on 01-24-2023 Bacteria Auto Ql (U) 1+ None Seen [facility] Urine colorOrdered By: Arthur Aguilar on 01-24-2023 Color (U) Sequ[place] Yellow [facility] Urine culture routineOrdered By: Rashard Aguilar on 01-24-2023 Bacteria identified Cx Nom (U) Filomena glabrata [facility] Urine glucose measurement by automated test strip (mass/volume)Ordered By: Rashard Aguilar on 01-24-2023 Glucose Auto test strip (U) [Mass/Vol] See comment Normal [facility] Comment on above: Unable to obtain acc urate result due to color interference. Urine leukocyte esterase det ection by automated test stripOrdered By: Rashard Aguilar on 01-24-2023 Leukocyte esterase Auto test strip Ql (U) See comment Negative [facility] Comment on above: Unable to obtain acc urate result due to color interference. Urine nitrite detection by a utomated test stripOrdered By: Rashard Aguilar on 01-24-2023 Nitrite Auto test strip Ql (U) See comment Negative [facility] Comment on above: Unable to obtain acc urate result due to color interference. Urobilinogen Test strip (U) [Mass/Vol]Ordered By: Rashard Aguilar on 01-24-2023 Urobilinogen (U) [Mass/Vol] See comment Normal [facility] Comment on above: Unable to obtain acc urate result due to color interference. WBC Auto (Bld) [#/Vol]Ordere d By: Rashard Aguilar on 01-24-2023 WBC (Bld) [#/Vol] 6.3 10*3/uL 3.8-11.6 [facility] Yeast detection in urine sed iment by light microscopyOrdered By: Rashard Aguilar on 01-24-2023 Yeast LM Ql (Urine sed) 3+ [HPF] None Seen [facility] pH Auto test strip (U)Ordere d By: Rashard Aguilar on 01-24-2023 pH (U) See comment 5.0-9.0 [facility] Comment on above: Unable to [...] with bladders stones, pt see's urology in [place] History of Present Illness Tea Rahman is a 77-year-old female here to establish care as a prior patient of Dr. Santana. She is accompanied by her today. 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 Mrs. Rahmna has a history of bladder stones and is followed by a urologist in [place]. She had a scope completed 10/21/2022 and, per patient, they stopped counting stones. She had also been followed by a urologist in [place]. When he moved his practice to [place], [place], she followed him for care. Due [...] with lupus, she was referred to a oven loader in [place]. She tried a different oven loader in [place] where she stayed until that provider retired. [...] Mrs. Rahman takes Xanax for anxiety and [place] for joint pain as sparingly as possible. Over the past few years, she has been taking a half a Xanax and a half a [place] every morning as well as at night. [...] fibromyalgia syndrome (M79.7: Fibromyalgia) Patient is on [place] for this. Again, discussed laws and regulations with this medication. She will comply. Will follow as needed. 5. Essential hypertension (I10: Essential (primary) hypertension) Patient is at goal at this time. Continue to monitor. 6. 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 7. Bladder stone (N21.0: Calculus in bladder) Will refer to urology for second opinion. Will see the patient back in 2 months and we will readjust the patient's medication as needed. Documentation services were performed after patient or guardian consented to allow Reina Trevor Anthony to record this visit. DARVIN display specialist and provider reviewed before signing. DARVIN: [...] and depressive (more content not included)... Normal [facility] Comment on above: Result Comment: Elec tronically Signed By: Lidya Almanzar MD\.br\Date and Time Signed: 12/22/22 14:14 EDT\.br\Electronically Co-Signed By: India Aguilar.br\Date and Time Co-Signed: 12/21/22 17:26 EDT Physician Referralon 023 Physician Referral [id number]. 00CD:127 Normal [facility] Lab Reportson 12-21-2022 Lab Reports [id number] 0CD:127 [facility] Medication Consenton 023 Medication Consent [id number] 0CD:127 Normal [facility] Ambulatory Visit Summaryon 0 12-20-2022 [...] Appointments Monday 1:00 PM EDT With: Lidya Almanzar MD Where: [facility] Lab Reportson 12-14-2022 Lab Reports [id number] CD:127 [facility] Stone Analysison 10-25-2022 Calculi description See Note Normal [facility] Comment on above: Result Comment: (NOT E) Specimen consists of numerous brown calculi. The total weight is 684 mg. Performed By: #### A STONE #### [address] [address] Seasonal Warehouse Associate: Jamel Valentine MD Composition See Note [facility] Comment on above: Result Comment: [...] composition determined by FTIR analysis. Performed By: [facility] [address] [place] [id number] Senior Ux Designer: Reggie Lawrence MD, PhD Performed By: #### A STONE #### [address] [address] Seasonal Warehouse Associate: Jamel Valentine MD Mass 684 mg [facility] Comment on above: Performed By: #### A STONE #### [address] [address] Seasonal Warehouse Associate: Jamel Valentine MD CULTURE URINEon 09-20-2022 CULTURE URINE Culture Observations : NO GROWTH. Normal [facility] Comment on above: Performed By: #### U RCX #### [facility] [address] [place] [address] Dr. Gigi Guzman FREE T3on 09-20-2022 FREE T3 1.79 pg/mlL Critically low 2.18-3.[address] [facility] Comment on above: Performed By: #### F T3, TSH #### [facility] [address] [place] [address] Dr. Gigi Guzman FREE T4on 09-20-2022 Free T4 [Mass/Vol] 0.97 ng/dL Normal 0.76-1.46 [facility] Comment on above: Performed By: #### F T4 #### [facility] [address] [address] [address] Gigi Guzman TSHon 09-20-2022 TSH 2.154 uIU/mL Normal 0.358-3.740 [facility] Comment on above: Performed By: #### F T3, TSH #### [facility] [address] [place], [place] [address] Dr. Gigi Guzman CULTURE URINEon 08-17-2022 CULTURE URINE Culture Observations : LIGHT GROWTH OF MIXED GENITAL GARFIELD. NO POTENTIAL PATHOGENS SEEN. Normal [facility] Comment on above: Performed By: #### U RCX #### [facility] [address] [address] [address] Gigi Guzman Automated erythrocytes count in urine sediment (number/area)Ordered By: Rashard Aguilar on 05-17-2022 RBC Auto (Urine sed) [#/Area] 3-4 [HPF] 0-4 [facility] Automated leukocytes count i n urine sediment (number/area)Ordered By: Rashard Aguilar on 05-17-2022 WBC Auto (Urine sed) [#/Area] 10-19 [HPF] 0-4 [facility] Automated urine hyaline cast s count (number/volume)Ordered By: Rashard Aguilar on 05-17-2022 Hyaline casts Auto (U) [#/Vol] None seen [LPF] 0-1 [facility] Comment on above: --- 05/17/221731 -- -Ur Hyaline Multineedle Shirrer previously reported as: None Seen /LPF Basophils Auto (Bld) [#/Vol] Ordered By: Rashard Aguilar on 05-17-2022 Basophils (Bld) [#/Vol] 0.1 10*3/uL 0.0-0.2 [facility] Basophils/100 WBC Auto (Bld) Ordered By: Rashard Aguilar on 05-17-2022 Basophils/100 WBC (Bld) 0.9 % . [facility] Bilirubin Test strip Ql (U)O rdered By: Rashard Aguilar on 05-17-2022 Bilirubin Ql (U) Negative Negative [facility] Blood hemoglobin measurement (mass/volume)Ordered By: Rashard Aguilar on 05-17-2022 Hemoglobin (Bld) [Mass/Vol] 13.3 g/dL 11.8-15.4 [facility] Blood leukocytes automated c ount (number/volume)Ordered By: Rashard Aguilar on 05-17-2022 WBC (Bld) [#/Vol] 5.5 10*3/uL 4.5-11.0 [facility] C reactive protein [Mass/vol ume] in Serum or PlasmaOrdered By: Rashard Aguilar on 05-17-2022 CRP [Mass/Vol] 0.9 mg/dL 0.0-1.0 [facility] Casts typing in urine sedime nt by light microscopyOrdered By: Rashard Aguilar on 05-17-2022 Casts LM Nom (Urine sed) None seen [LPF] None Seen [facility] Comment on above: --- 05/17/221731 -- -Ur Other Multineedle Shirrer previously reported as: None Seen /LPF Color Auto (U)Ordered By: Alta Aguilar on 05-17-2022 Color (U) Yellow Yellow [facility] Creatinine and Glomerular fi ltration rate.predicted panel (S/P/Bld)Ordered By: Rashard Aguilar on 05-17-2022 Creatinine [Mass/Vol] 0.84 mg/dL 0.44-1.03 [facility] Eosinophils Auto (Bld) [#/Vo l]Ordered By: Rashard Aguilar on 05-17-2022 Eosinophils (Bld) [#/Vol] 0.3 10*3/uL 0.0-0.45 [facility] Eosinophils/100 WBC Auto (Bl d)Ordered By: Rashard Aguilar on 05-17-2022 Eosinophils/100 WBC (Bld) 4.7 % . [facility] Erythrocyte distribution wid th Auto (RBC) [Ratio]Ordered By: Rashard Aguilar on 05-17-2022 Erythrocyte distribution width (RBC) [Ratio] 14.7 % 11.9-15.3 [facility] Erythrocyte sedimentation ra te by Photometric methodOrdered By: Rashard Aguilar on 05-17-2022 ESR Photometric method (Bld) [Velocity] 47 mm/hr 0-29 [facility] Estimated glomerular filtrat ion rate (GFR) non- AmericanOrdered By: Rashard Aguilar on 05-17-2022 GFR/1.73 sq M.predicted among non-blacks MDRD (S/P/Bld) [Vol rate/Area] > 60 mL/Min [facility] Hematocrit Auto (Bld) [Volum e fraction]Ordered By: Rashard Aguilar on 05-17-2022 Hematocrit (Bld) [Volume fraction] 40.6 % 34.0-46.4 [facility] Ketones Auto test strip (U) [Mass/Vol]Ordered By: Rashard Aguilar on 05-17-2022 Ketones (U) [Mass/Vol] Negative Negative [facility] - Hematology and Cell countsOrdered By: Rashard Aguilar on 05-17-2022 Nucleated RBC/100 WBC (Bld) [Ratio] 0.1 % 0-0.5 [facility] Lymphocytes Auto (Bld) [#/Vo l]Ordered By: Rashard Aguilar on 05-17-2022 Lymphocytes (Bld) [#/Vol] 1.6 10*3/uL 1.00-4.8 [facility] Lymphocytes/100 WBC Auto (Bl d)Ordered By: Rashard Aguilar on 05-17-2022 Lymphocytes/100 WBC (Bld) 29.3 % . [facility] MCH Auto (RBC) [Entitic mass ]Ordered By: Rashard Aguilar on 05-17-2022 MCH (RBC) [Entitic mass] 30.3 pg 24.7-34.3 [facility] MCHC Auto (RBC) [Mass/Vol]Or dered By: Rashard Aguilar on 05-17-2022 MCHC (RBC) [Mass/Vol] 32.6 g/dL 32.0-35.0 [facility] MCV Auto (RBC) [Entitic vol] Ordered By: Rashard Aguilar on 05-17-2022 MCV (RBC) [Entitic vol] 93.0 fL 80-100 [facility] Monocytes Auto (Bld) [#/Vol] Ordered By: Rashard Aguilar on 05-17-2022 Monocytes (Bld) [#/Vol] 0.5 10*3/uL 0.0-0.8 [facility] Monocytes/100 WBC Auto (Bld) Ordered By: Rashard Aguilar on 05-17-2022 Monocytes/100 WBC (Bld) 8.6 % . [facility] Neutrophils Auto (Bld) [#/Vo l]Ordered By: Rashard Aguilar on 05-17-2022 Neutrophils (Bld) [#/Vol] 3.1 10*3/uL 1.8-7.7 [facility] Neutrophils/100 WBC Auto (Bl d)Ordered By: Rashard Aguilar on 05-17-2022 Neutrophils/100 WBC (Bld) 56.5 % . [facility] Nitrite Test strip Ql (U)Ord ered By: Rashard Aguilar on 05-17-2022 Nitrite Ql (U) Negative Negative [facility] No Panel InformationOrdered By: Rashard Aguilar on 05-17-2022 Estimated GFR () > 60 mL/Min [facility] Comment on above: GFR estimated refere nce range: According to KDOQI guidelines, <60 ml/min/1.73m2 is sufficient to diagnose a patient with chronic kidney disease. Pharmacy Creatinine Clearance (Chem N/A [facility] Platelet mean volume Auto (B ld) [Entitic vol]Ordered By: Rashard Aguilar on 05-17-2022 Platelet mean volume (Bld) [Entitic vol] 7.0 fL 6.3-10.7 [facility] Platelets Auto (Bld) [#/Vol] Ordered By: Rashard Aguilar on 05-17-2022 Platelets (Bld) [#/Vol] 278 10*3/uL 150-450 [facility] Protein Auto test strip (U) [Mass/Vol]Ordered By: Rashard Aguilar on 05-17-2022 Protein (U) [Mass/Vol] Negative Negative [facility] RBC Auto (Bld) [#/Vol]Ordere d By: Rashard Aguilar on 05-17-2022 RBC (Bld) [#/Vol] 4.37 10*6/uL 3.60-5.00 [facility] Specific gravity Auto test s trip (U) [Rel density]Ordered By: Rashard Aguilar on 05-17-2022 Specific gravity (U) [Rel density] 1.009 1.001-1.030 [facility] Squamous epithelial cells de tection in urine sediment by light microscopyOrdered By: Rashard Aguilar on 05-17-2022 Epithelial cells.squamous LM Ql (Urine sed) 5-9 [HPF] 0-2 [facility] Urine bacteria detection by automated methodOrdered By: Rashard Aguilar on 05-17-2022 Bacteria Auto Ql (U) None seen None Seen [facility] Urine clarity by refractomet ry automatedOrdered By: Rashard Aguilar on 05-17-2022 Clarity Refractometry automated (U) Clear Clear [facility] Urine glucose measurement by automated test strip (mass/volume)Ordered By: Rashard Aguilar on 05-17-2022 Glucose Auto test strip (U) [Mass/Vol] Normal mg/dL Normal [facility] Urine hemoglobin detection b y automated test stripOrdered By: Rashard Aguilar on 05-17-2022 Hemoglobin Auto test strip Ql (U) Negative Negative [facility] Urine leukocyte esterase det ection by automated test stripOrdered By: Rashard Aguilar on 05-17-2022 Leukocyte esterase Auto test strip Ql (U) 2+ Negative [facility] Urobilinogen Auto test strip (U) [Mass/Vol]Ordered By: Rashard Aguilar on 05-17-2022 Urobilinogen (U) [Mass/Vol] Normal mg/dL Normal [facility] pH Auto test strip (U)Ordere d By: Rashard Aguilar on 05-17-2022 pH (U) 5.5 [pH] 5.0-9.0 [facility] CULTURE URINEon 03-17-2022 CULTURE URINE Isolate 1 [...] Trimethoprim/Sulfameth oxazole <=20 S F Normal [facility] Comment on above: Performed By: #### U RCX #### [facility] [address] [place] [address] Dr. Gigi Guzman UA (CLEAN/CATCH) VISUAL JOURNALIST/MICRO I F IND.on 03-14-2022 Bilirubin Ql (U) Negative Normal NEGATIVE [facility] Comment on above: Performed By: #### U ACSIND, UMICRO #### [facility] [address] [place] [address] Dr. Gigi Guzman Clarity (U) CLEAR Normal CLEAR [facility] Comment on above: Performed By: #### U ACSIND, UMICRO #### [facility] [address] [place] [address] Dr. Gigi Guzman Color (U) DK. YELLOW Normal YELLOW [facility] Comment on above: Performed By: #### U ACSIND, UMICRO #### [facility] [address] [place] [address] Dr. Gigi Guzman Glucose Ql (U) Negative Normal NEGATIVE [facility] Comment on above: Performed By: #### U ACSIND, UMICRO #### [facility] [address] [place] [address] Dr. Gigi Guzman Hemoglobin Ql (U) Negative Normal NEGATIVE [facility] Comment on above: Performed By: #### U ACSIND, UMICRO #### [facility] [address] [place] [address] Dr. Gigi Guzman Ketones Ql (U) Negative Normal NEGATIVE [facility] Comment on above: Performed By: #### U ACSIND, UMICRO #### [facility] [address] [place] [address] Dr. Gigi Guzman LEUKOCYTES TRACE Abnormal NEGATIVE [facility] Comment on above: Performed By: #### U ACSIND, UMICRO #### [facility] [address] [place] [address] Dr. Gigi Guzman Nitrite Ql (U) Positive Abnormal NEGATIVE [facility] Comment on above: Performed By: #### U ACSIND, UMICRO #### [facility] [address] [address] [address] Gigi Guzman pH (U) 5.0 [pH] Normal 5-9 [facility] Comment on above: Performed By: #### U ACSIND, UMICRO #### [facility] [address] [address] [address] Gigi Guzman SPEC GRAVITY 1.010 Normal 1.005-<=1.02 5 [facility] Comment on above: Performed By: #### U ACSIND, UMICRO #### [facility] [address] [place] [address] Dr. Gigi Guzman UA PROTEIN Negative Normal NEGATIVE/ TRACE [facility] Comment on above: Performed By: #### U ACSIND, UMICRO #### [facility] [address] [place] [address] Dr. Gigi Guzman UR MICRO IND INDICATED Normal [facility] Comment on above: Performed By: #### U ACSIND, UMICRO #### [facility] [address] [place] [address] Dr. Gigi Guzman Urobilinogen Qn (U) 0.2 {Maren'U}/dL Normal 0.2 - 1. 0 [facility] Comment on above: Performed By: #### U ACSIND, UMICRO #### [facility] [address] [place] [address] Dr. Gigi Guzman URINE MICROSCOPIC ONLYon BACTERIA SMALL Abnormal NONE SEEN [facility] Comment on above: Performed By: #### U ACSIND, UMICRO #### [facility] [address] [place] [address] Dr. Gigi Guzman Bacteria identified Cx Nom (U) INDICATED Normal [facility] Comment on above: Performed By: #### U ACSIND, UMICRO #### [facility] [address] [place] [address] Dr. Gigi Guzman CAST NONE SEEN Normal NONE SEEN [facility] Comment on above: Performed By: #### U ACSIND, UMICRO #### [facility] [address] [address] [address] Gigi Guzman Crystals LM Nom (Urine sed) NONE SEEN Normal NONE SEEN [facility] Comment on above: Performed By: #### U ACSIND, UMICRO #### [facility] [address] [address] [address] Gigi Guzman Epithelial cells LM Ql (Urine sed) FEW Abnormal NONE SEEN /RARE [facility] Comment on above: Performed By: #### U ACSIND, UMICRO #### [facility] [address] [address] [address] Gigi Guzman MUCOUS NONE SEEN Normal NONE SEEN [facility] Comment on above: Performed By: #### U ACSIND, UMICRO #### [facility] [address] [place] [address] Dr. Gigi Guzman RBC 0-2 Normal 0-2 [facility] Comment on above: Performed By: #### U ACSIND, UMICRO #### [facility] [address] [address] [address] Gigi Guzman WBC 10-20 Abnormal NONE SEEN [facility] Comment on above: Performed By: #### U ACSIND, UMICRO #### [facility] [address] [address] [address] Gigi Guzman CULTURE URINEon 01-25-2022 CULTURE URINE Culture Observations : LIGHT GROWTH OF MIXED GENITAL GARFIELD. NO POTENTIAL PATHOGENS SEEN. Normal [facility] Comment on above: Performed By: #### U RCX #### [facility] [address] [address] [address] Gigi Guzman Urinalysis - AUTOMATEDon Appearance (U) cloudy [employer] Other Bilirubin Ql (U) Negative [employer] Other Color (U) orange [employer] Other Glucose Ql (U) Negative [employer] Other Hemoglobin Ql (U) Negative [employer]ast [employer] Other Ketones Ql (U) Negative [employer] Other Leukocyte esterase Test strip Ql (U) trace [employer] Other Nitrite Ql (U) Positive [employer] Other pH (U) 5.0 [pH] [employer] Other Protein Ql (U) Negative [employer] Other Specific gravity (U) [Rel density] >1.030 [employer] Other Urobilinogen (U) [Mass/Vol] 0.2 mg/dL [employer] Other Urinalysis - AUTOMATED No rt [employer] Other Urine Cultureon 12-21-2021 Urine Culture >100,000 [employer] Other ANAon 07-06-2017 KAILEY PATTERN HOMOGENEOUS AND SPECKLED Normal [facility] Comment on above: Performed By: #### 0 0121, 55106 ####[facility] KAILEY SCREEN 1:160 Abnormal <1:40,1:40 [facility] Comment on above: Performed By: #### 0 0121, 87479 ####[facility] ANTI DNAon 07-06-2017 ANTI DNA <1:10 Normal <1:10 [facility] Comment on above: Performed By: #### 0 0121, 23484 ####[facility] ANTI-BETA 2 GLYCOPROTEIN 1on 07-06-2017 ANTI B2GP1 IGA 4.5 a units Normal 0.0-19.9 [facility] Comment on above: Performed By: #### 0 0121, 39870 ####[facility] [facility] [place] [address], [facility] ANTI B2GP1 IGG 0.7 g units Normal 0.0-19.9 [facility] Comment on above: Performed By: #### 0 0121, 22950 ####[facility] [facility] [place] [address], [facility] ANTI B2GP1 IGM 3.8 m units Normal 0.0-19.9 [facility] Comment on above: Performed By: #### 0 0121, 50355 ####[facility] [facility] [place] [address], [facility] ANTI-ENAon 07-06-2017 ANTI SM Negative Normal NEG,NEGATIVE ,Neg [facility] Comment on above: Performed By: #### 0 0121, 39923 ####[facility] [facility].[address] ANTI SM/ANTIRNP Negative Normal NEG,NEGATIVE ,Neg [facility] Comment on above: Performed By: #### 0 0121, 85337 ####[facility]3000 [facility].[address] ANTICARDIOLIPIN ANTIBODYon 09-05-2016 CARDIOLIPIN IGA 3.4 APL Normal 0.0-21.9 [facility] Comment on above: Performed By: #### 0 0121, 00335 ####[facility] [facility] [place] [address], [facility] CARDIOLIPIN IGG 7.7 GPL Normal 0.0-22.9 [facility] Comment on above: Performed By: #### 0 0121, 39313 ####[facility] [facility] [place] [address], [facility] CARDIOLIPIN IGM 1.2 MPL Normal 0.0-10.9 [facility] Comment on above: Performed By: #### 0 0121, 78943 ####[facility] C REACTIVE PROTEINon 017 C reactive protein (CRP) 6.1 mg/L Normal 0.0-7.0 [facility] Comment on above: Performed By: #### 1 0238, 64258, 65498 ####[facility] [facility] [place] [address], [facility] CBC W/DIFFon 07-06-2017 Basophils Auto #/vol (Bld) 0.4 % Normal 0.0-2.0 [facility] Comment on above: Performed By: #### 5 0103, 17203 ####[facility] [facility].[address] Eosinophils/100 leukocytes 2.9 % Normal 0.0-5.0 [facility] Comment on above: Performed By: #### 5 102, 36494 ####[facility] Erythrocyte distribution width Auto Ratio (RBC) 15.1 % Normal 11.5-16.9 [facility] Comment on above: Performed By: #### 5 3, 56092 ####[facility]3000 [facility].[address] Erythrocytes (RBC) 4.47 mill/mm3 Normal 3.50-5.50 [facility] Comment on above: Performed By: #### 5 0103, 66604 ####[facility] [facility].[address] Hematocrit (HCT) 40.7 % Normal 36.0-48.0 [facility] Comment on above: Performed By: #### 5 010, 55262 ####[facility] Hemoglobin mass conc (Bld) 13.5 g/dL Normal 12.0-15.0 [facility] Comment on above: Performed By: #### 5 102, 08831 ####[facility] Lymphocytes/100 leukocytes 27.3 % Normal 20.0-40.0 [facility] Comment on above: Performed By: #### 5 102, 58003 ####[facility] [facility].[address] MCH 30.1 pg Normal 24.0-32.0 [facility] Comment on above: Performed By: #### 102, 60585 ####[facility] [facility].[address] MCHC mass conc (RBC) 33.0 g/dL Normal 32.0-36.0 [facility] Comment on above: Performed By: #### 102, 22665 ####[facility]3000 [facility].[address] MCV 91.1 fL Normal 80.0-100.0 [facility] Comment on above: Performed By: #### 5 102, 55856 ####[facility] [facility].[address] METHOD Normal RBC Morphology Normal [facility] Comment on above: Performed By: #### 5 102, 30811 ####[facility] [facility].[address] MONOS 6.6 % Normal 2-8 [facility] Comment on above: Performed By: #### 5 102, 34447 ####[facility] [facility].[address] Neutrophils/100 leukocytes 62.8 % Normal 50-70 [facility] Comment on above: Performed By: #### 5 102, 13715 ####[facility] [facility] [place] [address], [facility] PLAT CNT 209 Thou/mm3 Normal 100-400 [facility] Comment on above: Performed By: #### 5 0103, 55537 ####[facility] WBC (Leukocytes) 7.9 Thou/mm3 Normal 4.0-10.0 [facility] Comment on above: Performed By: #### 5 0103, 37730 ####[facility] COMP METABOLIC PANELon 07-06 Alanine aminotransferase (ALT) 17 U/L Normal 7-52 [facility] Comment on above: Performed By: #### 0 0121, 38837 ####[facility] Albumin 4.4 g/dL Normal 3.5-5.7 [facility] Comment on above: Performed By: #### 0 0121, 78322 ####[facility] ALKALINE PHOSPH 54 IU/L Normal 34-104 [facility] Comment on above: Performed By: #### 0 0121, 66958 ####[facility] Aspartate aminotransferase (AST) 25 U/L Normal 13-39 [facility] Comment on above: Performed By: #### 0 0121, 16762 ####[facility] Bilirubin (total) 0.4 mg/dL Normal 0.3-1.0 [facility] Comment on above: Performed By: #### 0 0121, 34848 ####[facility] [place] [address], [facility] Calcium 9.4 mg/dL Normal 8.6-10.3 [facility] Comment on above: Performed By: #### 0 0121, 67624 ####[facility] [place] [address], [facility] Chloride 105 mmol/L Normal 98-107 [facility] Comment on above: Performed By: #### 0 0121, 58971 ####[facility] [place] [address], [facility] CO2 28 mmol/L Normal 21-31 [facility] Comment on above: Performed By: #### 0 0121, 84908 ####[facility] [facility] [place] [address], [facility] Creatinine 0.88 mg/dL Normal 0.60-1.20 [facility] Comment on above: Performed By: #### 0 0121, 64879 ####[facility] [facility] [place] [address], [facility] eGFR (black) mL/min/{1.73_m2} Normal >60 [facility] Comment on above: Result Comment: Calc ulation may not be valid for patients over 70 years Performed By: #### 0 0121, 08839 ####[facility] [facility] [place] [address], [facility] eGFR (non-black) mL/min/{1.73_m2} Normal >60 Th e [facility] Comment on above: Result Comment: Calc ulation may not be valid for patients over 70 years Performed By: #### 0 0121, 82900 ####[facility] [facility] [place] [address], [facility] Glucose mass conc 90 mg/dL Normal 70-100 [facility] Comment on above: Performed By: #### 0 0121, 99705 ####[facility] [place] [address], [facility] Potassium molar conc 3.9 mmol/L Normal 3.5-5.1 [facility] Comment on above: Performed By: #### 0 0121, 64656 ####[facility] Protein 7.2 g/dL Normal 6.0-8.3 [facility] Comment on above: Performed By: #### 0 0121, 86224 ####[facility] Sodium 137 mmol/L Normal 136-145 [facility] Comment on above: Performed By: #### 0 0121, 28955 ####[facility] Urea nitrogen 16 mg/dL Normal 7-25 [facility] Comment on above: Performed By: #### 0 0121, 96708 ####[facility] COMPLEMENT 3on 07-06-2017 COMPLEMENT 3 125 mg/dL Normal 79-152 [facility] Comment on above: Performed By: #### 1 0238, 18322, 94784 ####[facility] COMPLEMENT 4on 07-06-2017 COMPLEMENT 4 28 mg/dL Normal 16-38 [facility] Comment on above: Performed By: #### 1 0238, 07922, 19473 ####[facility] CPKon 07-06-2017 Creatine kinase (CK) 55 U/L Normal 30-223 [facility] Comment on above: Performed By: #### 0 0121, 81551 ####[facility] [place] [address], [facility] CREATININE URINE RANDOMon Creatinine 87.0 mg/dL Normal [facility] Comment on above: Result Comment: Ther e are no established reference values for random urine specimens Performed By: #### 4 1802, 15112 ####[facility] [place] [address], [facility] SEDIMENTATION RATEon 017 SED RATE 22 mm/hr High 0-20 [facility] Comment on above: Performed By: #### 5 0103, 35635 ####[facility] [place] [address], [facility] SJOGRENS ANTIBODIESon 2016 SS-A Negative Normal NEG,NEGATIVE ,Neg [facility] Comment on above: Performed By: #### 0 0121, 12947 ####[facility] [place] [address], [facility] SS-B Negative Normal NEG,NEGATIVE ,Neg [facility] Comment on above: Performed By: #### 0 0121, 76962 ####[facility] [place] [address], [facility] T PROT UR Rhianna 07-06-2017 U TOTAL PROTEIN 10.0 mg/dL Normal [facility] Comment on above: Result Comment: Ther e are no established reference values for random urine specimens Performed By: #### 4 1802, 36568 ####[facility] [place] [address], [facility] URINALYSISon 07-06-2017 Bilirubin (total) Negative Normal NEGATIVE [facility] Comment on above: Performed By: #### 1 0008 ####[facility] [place] [address], [facility] BLOOD Negative Normal NEGATIVE [facility] Comment on above: Performed By: #### 1 0008 ####[facility] [place] [address], [facility] EPIS MANY Abnormal FEW [facility] Comment on above: Performed By: #### 1 0008 ####[facility] [facility] [place] [address], [facility] Erythrocytes (RBC) 0-2 Abnormal 0-0 [facility] Comment on above: Performed By: #### 1 0008 ####[facility] [facility] [place] [address], [facility] Glucose mass conc Negative Normal NEGATIVE [facility] Comment on above: Performed By: #### 1 0008 ####[facility]3000 [facility].[address] KETONE Negative Normal NEGATIVE [facility] Comment on above: Performed By: #### 1 0008 ####[facility]3000 [facility].[address] LEUK GERRY TRACE Abnormal NEGATIVE [facility] Comment on above: Performed By: #### 1 0008 ####[facility]3000 [facility].[address] MUCUS THREADS OCC Abnormal NONE SEEN [facility] Comment on above: Performed By: #### 1 0008 ####[address] [facility].[address] pH of blood 5.0 [pH] Normal 5.0-8.0 [facility] Comment on above: Performed By: #### 1 0008 ####[facility]3000 [facility].[address] Protein Negative Normal NEGATIVE [facility] Comment on above: Performed By: #### 1 0008 ####[facility]3000 [facility].[address] SPEC GRAV 1.013 Low 1.015-1.020 [facility] Comment on above: Performed By: #### 1 0008 ####[id number] [facility].[address] Urine, appearance CLEAR Normal CLEAR [facility] Comment on above: Performed By: #### 1 0008 ####[facility] [facility] [place] [address], [facility] Urine, bacteria in sediment OCC Abnormal NONE SEEN [facility] Comment on above: Performed By: #### 1 0008 ####[facility] [facility] [place] [address], [facility] Urine, color SHAYY Abnormal YELLOW [facility] Comment on above: Performed By: #### 1 0008 ####[facility] [facility] [place] [address], [facility] Urine, nitrite presence Positive Abnormal NEGATIVE [facility] Comment on above: Performed By: #### 1 0008 ####[facility] [facility] [place] [address], [facility] WBC UA 6-10 Abnormal 0-0 [facility] Comment on above: Performed By: #### 1 0008 ####[facility] [facility], [place] [id number] [place] [address] Vital Signs Date Time Vital Sign Value Performing Clinician Faci lity 08-17-2023 13:40-0500 Body height 167.64 cm Shayy Garza Other [employer] Other 08-17-2023 13:40-0500 Body mass index (BMI) [Ratio] 26.31 kg/m2 Shayy Garza Other [employer] Other 08-17-2023 13:40-0500 Body temperature 97.9 [degF] Shayy Garza Other [employer] Other 08-17-2023 13:40-0500 Body weight 73.94 kg Shayy Garza Other [employer] Other 08-17-2023 13:40-0500 Respiratory rate 18 /min Shayy Garza Other [employer] Other 08-17-2023 13:40-0500 SaO2% (BldA) [Mass fraction] 96 % Shayy Garza Other [employer] Other 08-01-2023 09:00-0500 Body height 167.64 cm Mary Tejal Other [employer] Other 08-01-2023 09:00-0500 Body mass index (BMI) [Ratio] 26.02 kg/m2 Mary Tejal Other [employer] Other 08-01-2023 09:00-0500 Body temperature 98.1 [degF] Mary Tejal Other [employer] Other 08-01-2023 09:00-0500 Body weight 73.12 kg Mary Tejal Other [employer] Other 08-01-2023 09:00-0500 Diastolic blood pressure 97 mm[Hg] Mary Tejal Other [employer] Other 08-01-2023 09:00-0500 Respiratory rate 18 /min Mary Tejal Other [employer] Other 08-01-2023 09:00-0500 SaO2% (BldA) [Mass fraction] 95 % Mary Tejal Other [employer] Other 08-01-2023 09:00-0500 Systolic blood pressure 166 mm[Hg] Mary Tejal Other [employer] Other 06-01-2023 14:54-0400 Diastolic blood pressure 88 mm[Hg] Rahul [facility] 06-01-2023 14:54-0400 Heart rate 78 /min Rahul [facility] 06-01-2023 14:54-0400 SaO2% (BldA) [Mass fraction] 97 % Rahul [facility] 06-01-2023 14:54-0400 Systolic blood pressure 138 mm[Hg] Rahul [facility] 04-20-2023 14:33-0400 Blood Pressure Location Rahul [facility] 04-20-2023 14:33-0400 Diastolic blood pressure 72 mm[Hg] Rahul [facility] 04-20-2023 14:33-0400 Heart rate 76 /min Rahul [facility] 04-20-2023 14:33-0400 SaO2% (BldA) [Mass fraction] 96 % Rahul [facility] 04-20-2023 14:33-0400 Systolic blood pressure 128 mm[Hg] Rahul [facility] 12-21-2021 13:35-0400 Body height 167.64 cm Mary Toure Other [employer] [facility] [employer] Other 12-21-2021 13:35-0400 Body mass index (BMI) [Ratio] 28.73 kg/m2 Mary Toure Other [employer] Other 12-21-2021 13:35-0400 Body temperature 97.9 [degF] Mary Toure Other [employer] Other 12-21-2021 13:35-0400 Body weight 80.74 kg Mary Toure Other [employer] Other 12-21-2021 13:35-0400 Diastolic blood pressure 66 mm[Hg] Mary Toure Other [employer] Other 12-21-2021 13:35-0400 Respiratory rate 16 /min Mary Toure Other [employer] Other 12-21-2021 13:35-0400 SaO2% (BldA) [Mass fraction] 97 % Mary Toure Other [employer] Other 12-21-2021 13:35-0400 Systolic blood pressure 129 mm[Hg] Mary Toure Other [employer] Other Encounters Encounter Date Encounter Type Care Provider Facility Start: 02-20-2024 End: 02-20-2024 ambulatory LUCRETIA Ambrocio [facility] Start: 02-15-2024 End: 02-20-2024 Emergency department patient [place] [facility] Start: 02-15-2024 End: 02-19-2024 Evaluation and management of inpatient DRAKE THEODOREIAHerbert [facility] Start: 02-15-2024 End: 02-15-2024 ambulatory DRAKEMANDI LEUNG [facility] Start: 02-15-2024 End: 02-20-2024 Emergency department patient visit [place] [facility] Start: 02-14-2024 End: 02-14-2024 ambulatory SHAIKH XOCHITL Not Available Start: 02-08-2024 End: 02-08-2024 ambulatory JANET GARCIA [facility] Start: 01-31-2024 End: 01-31-2024 ambulatory SYDNIE Quiroz ERMELINDA [facility] Start: 01-30-2024 End: 01-30-2024 ambulatory DRAKE FAWWAD Not Available Start: 01-19-2024 End: 01-19-2024 ambulatory SERA JENSEN Not Available Start: 01-17-2024 End: 01-17-2024 ambulatory DRAEK FAWWAD Not Available Start: 01-16-2024 End: 01-16-[address] [facility] Start: 01-13-2024 End: 01-14-2024 Emergency department patient visit YOJANA Mcmanus [facility] Start: 01-09-2024 End: 01-09-2024 ambulatory JOIE FITZGERALD Not Available Start: 12-26-2023 End: 12-26-2023 ambulatory [facility] Start: 12-21-2023 End: 12-21-2023 ambulatory DRAKE FAWWAD Not Available Start: 12-19-2023 End: 12-19-2023 ambulatory [facility] Start: 12-12-2023 End: 12-12-2023 ambulatory [facility] Start: 11-13-2023 End: 11-14-2023 ambulatory XXXX NONE Facility:[facility] Start: 11-13-2023 End: 11-13-2023 Patient encounter procedure Rahul [facility] Start: 11-08-2023 End: 11-08-2023 ambulatory DRAKE FAWWAD Not Available Start: 10-27-2023 End: 10-27-2023 ambulatory SERA JENSEN Not Available Start: 10-09-2023 End: 10-09-2023 ambulatory DRAKE FAWWAD Not Available Start: 09-27-2023 Telephone encounter Deven Benton [facility] Comment on above: Medication Question (PT HAS BEEN GIVEN ZOFRAN IN THE PAST (PREVIOUS MD) FOR STOMACH ISSUES. SHE ASKED IF YOU COULD SEND SOME IN FOR HER USE FROM TIME TO TIME -SCR) Start: 09-12-2023 End: 09-12-2023 ambulatory Rashard Aguilar Facility:[facility] Start: 09-12-2023 End: 09-12-2023 ambulatory PHYSICIAN NO [facility] Work Phone: Start: 09-12-2023 End: 09-12-2023 Patient encounter procedure PHYSICIAN NO [facility] [address] Work Phone: Start: 09-05-2023 End: 09-05-2023 ambulatory SHAIKH XOCHITL Not Available Start: 08-28-2023 End: 08-29-2023 ambulatory Gem Contreras Facility:[facility] Start: 08-28-2023 End: 08-28-2023 Patient encounter procedure Gem Contreras [facility] Start: 08-20-2023 End: 08-20-2023 ambulatory Shayy Garza Other [employer] Other Start: 08-20-2023 Telephone encounter Shayy Garaz [facility] [address] Start: 08-17-2023 End: 08-17-2023 ambulatory Shayy Garza Facility:[facility] Start: 08-17-2023 End: 08-17-2023 Departed Referred PHYSICIAN NO [facility] [address] Work Phone: Start: 08-17-2023 End: 08-17-2023 ambulatory PHYSICIAN NO [facility] Work Phone: Start: 08-17-2023 Office outpatient visit 15 minutes Shayy Garza [facility] Start: 08-17-2023 End: 08-17-2023 Patient encounter procedure PHYSICIAN NO [facility] Work Phone: Start: 2023 End: 08-16-2023 ambulatory Camelia LOW Facility:[facility] Start: 08-01-2023 Office outpatient visit 15 minutes Mary Toure [facility] Start: 08-01-2023 End: 08-01-2023 ambulatory Mary Toure [facility] Other Start: 08-01-2023 End: 08-01-2023 Departed Referred PHYSICIAN BIANKA [facility] [address] [place] Work Phone: Start: 07-31-2023 End: 08-01-2023 ambulatory Gem Contreras Facility:[facility] Start: 07-31-2023 End: 08-01-2023 Patient encounter procedure Gem Lydia Contreras [facility] Start: 07-24-2023 End: 07-24-2023 ambulatory SERA JENSEN Not Available Start: 07-14-2023 End: 07-15-2023 ambulatory Lidya Almanzar Facility:[facility] Start: 06-29-2023 ambulatory Goldstein Talgaudencio Brandtmini Facility:[facility] Start: 06-23-2023 ambulatory Gem Contreras [facility] Start: 06-22-2023 End: 06-23-2023 ambulatory Lidya Almanzar Facility:[facility] [place] [facility] Start: 06-13-2023 ambulatory Gem Contreras Facility :[facility] Start: 06-06-2023 End: 06-07-2023 ambulatory Gem Contreras Facility:[facility] Start: 06-06-2023 End: 06-06-2023 Patient encounter procedure Gem Contreras [facility] Start: 06-01-2023 End: 06-02-2023 ambulatory Lidya Almanzar Facility:[facility] Start: 06-01-2023 End: 06-01-2023 Patient encounter procedure Rahul Salas [facility] Start: 05-31-2023 ambulatory Gem Contreras [facility] Start: 05-30-2023 End: 05-31-2023 ambulatory Lidya Almanzar Facility:[facility] [place] [facility] Start: 05-25-2023 End: 05-26-2023 ambulatory XXXX NONE Facility:[facility] Start: 05-11-2023 End: 05-12-2023 ambulatory Rahul Salas Facility:[facility] Start: 05-11-2023 End: 05-11-2023 Patient encounter procedure Rahul Salas [facility] Start: 05-09-2023 Telephone encounter Shayy Garza [facility] Start: 05-09-2023 End: 05-10-2023 ambulatory Franco Jimmy SCHERER [facility] Other Start: 05-04-2023 End: 05-04-2023 ambulatory Shayy Garza Facility:[facility] Start: 04-20-2023 End: 04-21-2023 ambulatory Lidya EsparzaElvis Almanzar Facility:[facility] Start: 04-20-2023 End: 04-20-2023 Patient encounter procedure Rahul Salas [facility] Start: 04-17-2023 End: 04-18-2023 ambulatory Lidya Almanzar Facility:[facility] Start: 03-28-2023 End: 03-29-2023 ambulatory Lidya Almanzar Facility:[facility] [place] [facility] Start: 03-20-2023 End: 03-21-2023 ambulatory Lidyamaria eugenia Almanzar Facility:[facility] Start: 03-02-2023 End: 03-02-2023 ambulatory Rashard Aguilar Facility:[facility] Start: 03-02-2023 End: 03-02-2023 ambulatory MD Ashutosh Santana Work Phone: [facility] Work Phone: Start: 03-02-2023 End: 03-02-2023 Patient encounter procedure MD Ashutosh Santana Work Phone: [facility] [address] Work Phone: Start: 01-24-2023 End: 01-24-2023 ambulatory Rashard Aguilar Facility:[facility] Start: 01-24-2023 End: 01-24-2023 ambulatory MD Ashutosh Santana Work Phone: [facility] Work Phone: Start: 01-24-2023 End: 01-24-2023 Patient encounter procedure MD Ashutosh Santana Work Phone: [facility] [address] Work Phone: Start: 12-20-2022 End: 12-21-2022 ambulatory Lidya Almanzar Facility:[facility] Start: 10-21-2022 End: 10-22-2022 [facility] Start: 09-20-2022 End: 09-21-[address] ASHUTOSH SANTANA Facility:[facility] Start: 08-17-2022 End: 08-18-[address] ASHUTOSH SANTANA Facility:[facility] Start: 05-17-2022 End: 05-17-2022 ambulatory MD Ashutosh Santana Work Phone: [facility] Work Phone: Start: 05-17-2022 End: 05-17-2022 Patient encounter procedure MD Ashutosh Santana Work Phone: [facility] [address] Start: 03-14-2022 End: 03-15-[address] ASHUTOSH SANTANA Facility:[facility] Start: 01-25-2022 End: 01-26-[address] ASHUTOSH SANTANA Facility:[facility] Start: 01-06-2022 End: 01-06-2022 ambulatory Mary Toure Other [employer] Other Start: 01-06-2022 Telephone encounter Mary [facility]CR[facility] Start: 12-21-2021 End: 12-21-2021 ambulatory Mary Toure Other [employer] Other Start: 12-21-2021 Office outpatient visit 25 minutes Mary Toure [facility] Start: 09-27-[address] ASHUTOSH SANTANA Facilit y:[facility] Start: 07-06-2017 End: 07-07-2017 Ambulatory LISET CEDNEO Facility:[facility] Procedures Date Procedure Procedure Detail Performing Clinician Start: 12-26-2023 Follow-up visit Follow-up MICHAEL YOUNG Start: 08-17-2023 Urine culture PHYSICIAN NO [...] Annual Wellness (AWV) Medicare Annual Wellness (AWV) [facility] Start: 11-08-2023 End: 11-08-2023 Patient encounter procedure 11/08/2023 3:30 PM EDT Office Visit [facility] [address] [place] [id number] Shaikh Leung MD [address] [place] [address] [facility] Start: 09-12-2023 Bacteria identified in Urine by Culture [facility] Start: 08-17-2023 Bacteria identified in Urine by Culture [facility] Start: 04-21-2023 Influenza vaccination Influenza Vaccine (#1) [facility] Start: 01-24-2023 Bacteria identified in Urine by Culture Urine Culture [facility] Start: 05-17-2022 [facility] Start: 1951 Pneumococcal Vaccine: 65+ Years (1 - PCV) Pneumococcal Vaccine: 65+ Years (1 - PCV) [facility] Bacteria identified in Urine by Culture [facility] Complement C3 [Mass/ volume] in Serum or Plasma [facility] Work Phone: Complement C3 [Mass/ volume] in Serum or Plasma [facility] Complement C4 [Mass/ volume] in Serum or Plasma [facility] Work Phone: Complement C4 [Mass/ volume] in Serum or Plasma [facility] Myeloperoxidase Ab [Units/volume] in Serum by Immunoassay [facility] Work Phone: Neutrophil cytoplasm ic Ab.classic [Titer] in Serum by Immunofluorescence [facility] Work Phone: Neutrophil cytoplasm ic Ab.perinuclear.atypical [Titer] in Serum by Immunofluorescence [facility] Work Phone: P-ANCA measurement [facility] Work Phone: Proteinase 3 Ab [Units/volume] in Serum by Immunoassay [facility] Work Phone: Immunizations Immunization Date Immunization Notes Care Provider Tonja martinez NEGATED: Highlighted row has not occurred!05-30-2023 influenza virus vaccine, unspecified formulation Rahul Salas [facility] NEGATED: Highlighted row has not occurred!11-02-2022 influenza virus vaccine, unspecified formulation Rahul Salas [facility] NEGATED: Highlighted row has not occurred!11-02-2022 SARS-CoV-2 mRNA (tozinameran 5y-11y) vaccine Rahul Salas [facility] Payers Date Payer Category Payer Self-pay [id number] 2022 Medicare ANTHEM MEDICARE ADVANTAGE [facility] MEDICARE ADVANTAGE [id number] 2022-Present [address] [place] [address] [id number] 2021 Medicaid [place]ICAID [place] [facility] [place]ID [place] [id number] 2021-Present [phone] [address] [place] [address] Medicaid [id number] 2020 Medicare [id number] 2.16.840.1.004126.19 1959 Medicaid [id number] 2.16.840.1.663830.19 1959 Medicare [id number] 2.16.840.1.884377.19 1945 Unknown [id number] 2.16.840.1.747432.3.579.2. 593 1945 Unknown [id number] 2.16.840.1.108439.3.579.2. 593 1945 Unknown [id number] 2.16.840.1.927677.3.579.2. 593 1945 Unknown [id number] 2.16.840.1.647482.3.579.2. 593 1945 Unknown [id number] 2.16.840.1.496379.3.579.2. 593 1945 Unknown [id number] 2.16.840.1.004905.3.579.2. 175 1945 Unknown [id number] 2.16.840.1.223348.3.579.2. 727 1945 Unknown [id number] 2.16.840.1.258048.3.579.2. 727 1945 Unknown [id number] 2.16.840.1.953397.3.579.2. 727 1945 Unknown [id number] 2.16.840.1.158218.3.579.2. 72 1945 Unknown [id number] 2.16.840.1.731313.3.579.2. 1945 Unknown [id number] 2.16.840.1.268881.3.579.2. 1945 Unknown [id number] 2.16.840.1.124984.3.579.2. 1945 Unknown [id number] 2.16.840.1.177757.3.579.2. 1945 Unknown [id number] 2.16.840.1.883081.3.579.2 1945 Unknown [id number] 2.16.840.1.416160.3.579.2 1945 Unknown [id number] 2.16.840.1.741065.3.579.2 1945 Unknown [id number] 2.16.840.1.292384.3.579.2 1945 Unknown [id number] 2.16.840.1.506254.3.579.2 1945 Unknown [id number] 2.16840.1.829158.3.579.2 1945 Unknown [id number] 2.16.840.1.511224.3.579.2. 1945 Unknown [id number] 2.16.840.1.777160.3.579.2 1945 Unknown [id number] 2.16.840.1.506728.3.579.2 1945 Unknown [id number] 2.16.840.1.830262.3.579.2 1945 Unknown [id number] 2.16.840.1.741750.3.579.2. 727 1945 Unknown [id number] 2.16.840.1.445136.3.579.2. 1286 1945 Unknown [id number] 2.16.840.1.870546.3.579.2. 1286 1945 Unknown [id number] 2.16.840.1.975432.3.579.2. 1286 1945 Unknown [id number] 2.16.840.1.569382.3.579.2. 1286 1945 Unknown [id number] 2.16.840.1.392067.3.579.2. 1286 1945 Unknown [id number] 2.16.840.1.042374.3.579.2. 1259 1945 Unknown [id number] 2.16.840.1.419058.3.579.2. 1259 1945 Unknown [id number] 2.16.840.1.933426.3.579.2. 1259 1945 Unknown [id number] 2.16.840.1.876879.3.579.2. 1259 1945 Unknown [id number] 2.16.840.1.599460.3.579.2. 1259 1945 Unknown [id number] 2.16.840.1.615383.3.579.2. 1259 1945 Unknown [id number] 2.16.840.1.315287.3.579.2. 1259 1945 Unknown [id number] 2.16.840.1.078146.3.579.2. 1259 1945 Unknown [id number] 2.16.840.1.348545.3.579.2. 1259 1945 Unknown [id number] 2.16.840.1.730858.3.579.2. 1259 1945 Unknown [id number] 2.16.840.1.636905.3.579.2. 1259 1945 Unknown [id number] 2.16.840.1.084033.3.579.2. 1259 1945 Unknown [id number] 2.16.840.1.772137.3.579.2. 1259 1945 Unknown [id number] 2.16.840.1.172881.3.579.2. 1286 1945 Unknown [id number] 2.16.840.1.494394.3.579.2. 1286 1945 Unknown [id number] 2.16.840.1.290150.3.579.2. 1286 1945 Unknown [id number] 2.16.840.1.252093.3.579.2. 1286 1945 Unknown [id number] 2.16.840.1.418700.3.579.2. 1286 1945 Unknown [id number] 2.16.840.1.090521.3.579.2. 1286 1945 Unknown [id number] 2.16.840.1.372437.3.579.2. 1286 1945 Unknown [id number] 2.16.840.1.039470.3.579.2. 1286 1945 Unknown [id number] 2.16.840.1.102450.3.579.2. 1286 1945 Unknown [id number] 2.16.840.1.152955.3.579.2. 1286 1945 Unknown [id number] 2.16.840.1.295461.3.579.2. 1286 Blue Cross Blue Shield IAN [id number] Medicare Medicare Nonpatient [id number] Unknown [id number] 2.16.840.1.761482.3.579.2. 531 Unknown [id number] 2.16.840.1.882201.3.579.2. 531 Unknown [id number] 2.16.840.1.961330.3.579.2. 531 Unknown [id number] 2.16.840.1.115175.3.579.2. 531 Unknown [id number] 2.16.840.1.960152.3.579.2. 531 Unknown [id number] 2.16.840.1.705404.3.579.2. 531 Social History Date Type Detail Facility Unknown if ever smoked [employer] Other Start: 09-05-2023 Sex Assigned At F [facility] Start: 1945 Sex Assigned At Female [facility] Start: 04-17-2023 End: 06-22-2023 Tobacco smoking status Never smoked tobacco (finding) [facility] Tobacco smoking status Never [facility] Start: 05-01-2023 Tobacco use and exposure Smokeless tobacco non-user [facility] Start: 09-05-2023 Alcohol intake Lifetime non-d yessica (finding) [facility] Start: 09-05-2023 History of Social function [facility] Start: 05-01-2023 Alcohol Comment caffeine intak e: 1-2 cups per day. [facility] Start: 1945 Sex Assigned At Not on file N [facility] Functional Status Date Assessment Result Facility 06-01-2023 Functional Status No [facility] 04-20-2023 Functional Status No [facility] Clinical Notes 12-21-2021 to 08-17-2023 Note [...] understanding and is agreeable to treatment plan. [employer] Other 12-12-2023 Evaluation note* Encounter Date Diagnosis [...] as needed for aches pains or fevers. [employer] Other 09-22-2023 NoteEchocardiology Procedure Exam Date/Time Accession # Ordering Echo Transthoracic 05/11/2023 11:40 EDT [id number] Portillo PIPER, Rahul Varner CPT code 05098 04342 Reason for Exam (Echo Transthoracic Complete) I25.10;CAD Coronary artery disease Report Version: 1 Study ID: [id number] [id number] Adult Echocardiogram Report Name: TEA RAHMAN Study Date: 05/11/2023, 10: 55 AM Patient Location: [facility] : 1945 (MM/DD/YYYY) Gender: Female Age: 77 [...] Signed by: Rahul Salas MD Transcribed by: [facility] Technologist: [facility]05-03-2022 Evaluation note* Encounter Date Diagnosis Assessment [...] the ER for worsening symptoms or concerns [employer] Other Evaluation + Plan note Future Appointments Appointment Date:05/25/2023 03:15:00 PM Scheduled Provider:Rahul Salas MD [facility] [place] Appointment Type:Cardiology Follow Up (FT) Appointment Date:06/13/2023 01:20:00 PM Scheduled Provider:Lidya Almanzar MD Location:[facility] Future Appointments Appointment Date:06/06/2023 01:00:00 PM Scheduled Provider:Gem [place] Location:[facility]al Health [facility] Appointment Type:BH Therapy New Patient Appointment Date:06/22/2023 04:00:00 PM Scheduled Provider:Lidya Almanzar MD Location:[facility] Appointment Type: Open Appointment Date:06/29/2023 02:30:00 PM Scheduled Provider:Tonio Levy MD Location:[facility]ive Health Appointment Type:BADH New Patient Appointment Date:07/14/2023 09:30:00 AM Scheduled Provider: Location:[facility] [place] Appointment Type: Medicare Wellness [facility] Future Appointments Appointment Date:06/13/2023 01:00:00 PM Scheduled Provider:[place]em [place] Location:[facility] Behavioral Health [facility] Appointment Type:BH Therapy 60 Appointment Date:06/22/2023 04:00:00 PM Scheduled Provider:Lidya Almanzar MD Location:[facility] Appointment Type:FM Open Appointment Date:06/29/2023 02:30:00 PM Scheduled Provider:Tonio Levy MD Location:[facility] Digestive Health Appointment Type:BADH New Patient Appointment Date:07/14/2023 09:30:00 AM Scheduled Provider: Location:[facility] Appointment Type:FM Medicare Wellness Subsequent [facility] evaluation + Plan note Future Appointments Appointment Date:08/10/2023 03:00:00 PM Scheduled Provider:Camelia LOW CNP [facility] Type:Cardiology ED Follow Up (FT) [facility] evaluation + Plan note Future Appointments Appointment Date:11/13/2023 12:15:00 PM Scheduled Provider:Rahul Salas MD Location:.[facility] Clinic Appointment Type:Cardiology Follow Up (FT) [facility] Behavioral [facility] evaluation + Plan note Future Appointments Appointment Date:05/16/2024 01:00:00 PM Scheduled Provider:Rahul Salas MD Location:.[facility] Clinic Appointment Type:Cardiology [facility] ([facility] noteNo InformationNort [employer] Other Evalusszkp noteNo assessment information available [facility] Work Phone: evaluation note* Diagnosis Nausea- [...] heart Hospitalization History see above surgical hx [employer] [facility] Other Hospital course Narrative No data available for this section [facility] No data available for this section [facility] No data available for this section [facility] Summary Purpose Family History No Family [...] section and content) DATE CREATED AUTHOR 02/13/2018 [facility] DATE CREATED AUTHOR AUTHOR'S ORGANIZ ATION 09/21/2022 [facility] DATE CREATED AUTHOR AUTHOR'S ORGANIZ ATION 08/27/2023 [facility] DATE CREATED AUTHOR AUTHOR'S ORGANIZ ATION 08/29/2023 [facility] DATE CREATED AUTHOR AUTHOR'S ORGANIZ ATION 09/29/2023 [facility] DATE CREATED AUTHOR AUTHOR'S ORGANIZ ATION 12/05/2023 [facility] DATE CREATED AUTHOR AUTHOR'S ORGANIZ ATION 02/10/2024 [facility] DATE CREATED AUTHOR AUTHOR'S ORGANIZ ATION 02/15/2024 [facility] dical Specialists [facility] DATE CREATED AUTHOR AUTHOR'S ORGANIZ ATION 02/22/2024 [facility] DATE CREATED AUTHOR AUTHOR'S ORGANIZ ATION 02/23/2024 [facility] REASON FOR VISIT (unrecogniz ed section and [...] September 12, 2023 End: September 12, 2023 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 [facility]. provides no warranty or guarantee of the accuracy or completeness of information in this document.
--- NOTE | 2024-02-23 21:08 | XR_ITS ---
The [address] [address] Patient Name: SIMA LEY MRN: [id number] date: 1945 Sex: F Assigned Patient Location: ED.MAIN Current Patient Location: ER Accession/Order Number: [id number] Exam Date: 02/23/2024 21:34 Report Date: 02/23/2024 22:24 At the request of: ADRIÁN PRIEST Procedure: XR hip LT min 2V Exam: Radiographs: XR hip LT min 2V, XR elbow LT min 3V Reason for exam: Pain, recent surgery Comparison: None XR/XR hip LT min 2V IMPRESSION: Left femoral neck internal fixation screws across a subcapital femoral neck fracture. Mild left hip degenerative change. Atherosclerotic calcifications. Remainder of the left hip radiographs is unremarkable. Mild left elbow degenerative change. Left elbow radiographs are otherwise unremarkable. Electronically authenticated by: DION MENDOZA Date: 02/23/2024 22:24
--- NOTE | 2024-02-23 21:08 | ED.LOWEXI1 ---
HPI HPI - Extremity Injury (Lower) General Chief Complaint: Extremity Injury, Lower Stated Complaint: HIP Time Seen by Provider: 02/23/24 20:57 Source: patient Mode of arrival: ambulance Limitations: no limitations History of Present Illness HPI Narrative: 78-year-old female presents to the emergency to have her left hip and left wrist looked at. She had apparently fallen several days ago and had left hip surgery. She also reportedly broke her wrist and she had a cast on it. Reportedly she took it off and reportedly the orthopedist did not want it replaced. She was being transferred apparently today and either the patient or her family felt that she was transferred to [facility] and they wanted to have her left hip looked at with an x-ray. The patient is a poor historian. Related Data Home Medications ?Medication ?Instructions ?Recorded ?Confirmed alprazolam 0.5 mg tablet 0.5 mg PO BID 12/03/23 02/23/24 carvedilol 12.5 mg tablet 12.5 mg PO DAILY 12/03/23 02/23/24 hydrocodone 5 mg-acetaminophen 325 1 tab PO Q6H PRN pain 12/03/23 02/23/24 mg tablet hydroxychloroquine 200 mg tablet 200 mg PO DAILY 12/03/23 02/23/24 levothyroxine 100 mcg tablet 100 mcg PO DAILY 12/03/23 01/27/24 vibegron 75 mg tablet (Gemtesa) 75 mg PO DAILY 12/03/23 01/27/24 docusate sodium 100 mg capsule 100 mg PO DAILY 01/27/24 02/23/24 escitalopram oxalate 5 mg tablet 5 mg PO DAILY 01/27/24 01/27/24 (Lexapro) linaclotide 145 mcg capsule 145 mcg PO DAILY 01/27/24 01/27/24 (Linzess) aspirin 81 mg capsule 81 mg PO DAILY 02/23/24 02/23/24 ferrous sulfate 325 mg (65 mg 325 mg PO BID 02/23/24 02/23/24 iron) tablet (Ailyn-Time) hydrocortisone 2.5 % topical cream 1 applic SC BID PRN hemorrhoids 02/23/24 02/23/24 with perineal applicator (Procto-Med ) Previous Rx's ?Medication ?Instructions ?Recorded ondansetron 4 mg disintegrating 4 mg PO Q8H PRN nausea and 08/06/23 tablet vomiting 4 days #16 tabs ondansetron 4 mg disintegrating 4 mg PO Q6H PRN nausea and 12/03/23 tablet vomiting #12 tabs cephalexin 500 mg capsule 500 mg PO TID 7 days #21 caps 02/23/24 Allergies Allergy/AdvReac Type Severity Reaction Status Date / Time buspirone Allergy Unknown Unknown Verified 02/23/24 21:50 ciprofloxacin [From Cipro] Allergy Unknown Unknown Verified 02/23/24 21:50 nitrofurantoin Allergy Unknown Unknown Verified 02/23/24 21:50 [From Macrobid] fentanyl AdvReac Severe Anxiety Verified 02/23/24 21:50 prochlorperazine AdvReac Severe Vomiting Verified 02/23/24 21:50 [From Compazine] solifenacin AdvReac Severe Blurry Verified 02/23/24 21:50 Vision Opioid HPI Opioid Management Most Recent Pain and Opioid Data: Last Pain Scale 5 02/23/24 21:10 Review of Systems ROS Narrative Unobtainable, age PFSH PFSH Social History Smoking status: Never smoker Exam Narrative Exam Narrative: Nurses note and vital signs reviewed and patient is not hypoxic. General: The patient appears well and in no apparent distress. Patient is resting comfortably on cart. Skin: Warm, dry, no pallor noted. There is no rash noted. Head: Normocephalic, atraumatic Eye: Normal conjunctiva, no drainage Ears, Nose, Mouth, and Throat: oral mucosa is moist. Nares patent. Cardiovascular: Regular Rate and Rhythm Respiratory: Patient is in no distress, no accessory muscle use, lungs are clear to auscultation, no wheezing, rales or rhonchi Back: non-tender GI: Soft and nontender Musculoskeletal: Dressing placed on the left hip. The left wrist has no deformity and the skin is intact and fingers have full range of motion. Neurological: A&O x4 Psychiatric: Cooperative Constitutional Vital Signs, click to edit/add: Last Vital Signs Temp 98 F 02/23/24 20:58 Pulse 76 02/23/24 20:58 Resp 14 02/23/24 20:58 BP 141/80 02/23/24 20:58 Pulse Ox 93 L 02/23/24 20:58 O2 Del Method Room Air 02/23/24 20:58 Course Vital Signs Vital signs: Vital Signs Temperature 98 F 02/23/24 20:58 Pulse Rate 76 02/23/24 20:58 Respiratory Rate 14 02/23/24 20:58 Blood Pressure 141/80 02/23/24 20:58 Pulse Oximetry 93 L 02/23/24 20:58 Oxygen Delivery Method Room Air 02/23/24 20:58 Temperature 98 F 02/23/24 20:58 Pulse Rate 76 02/23/24 20:58 Respiratory Rate 14 02/23/24 20:58 Blood Pressure 141/80 02/23/24 20:58 Pulse Oximetry 93 L 02/23/24 20:58 Oxygen Delivery Method Room Air 02/23/24 20:58 MDM - Extremity Injury (Lower) MDM Narrative Medical decision making narrative: X-rays per radiologist showed no acute findings. No hardware issues in the hip and x-ray of the elbow shows no fracture. Urinalysis suggest mild UTI. Findings are discussed with her family and the patient is started on Keflex and will be discharged back to senior care. Treatment diagnosis and follow-up were discussed with the patient's family. Differential Diagnosis Differential diagnosis: Likely other (Hardware malfunction, hip fracture, elbow fracture) Lab Data Attestation: I reviewed the patient's lab results. Imaging Data Left elbow, left hip x-ray: Radiologist's impression: ITS Impressions Hip X-Ray 02/23/24 21:08 IMPRESSION: Left femoral neck internal fixation screws across a subcapital femoral neck fracture. Mild left hip degenerative change. Atherosclerotic calcifications. Remainder of the left hip radiographs is unremarkable. Mild left elbow degenerative change. Left elbow radiographs are otherwise unremarkable. Electronically authenticated by: DION MENDOZA Date: 02/23/2024 22:24 Elbow X-Ray 02/23/24 21:29 IMPRESSION: Left femoral neck internal fixation screws across a subcapital femoral neck fracture. Mild left hip degenerative change. Atherosclerotic calcifications. Remainder of the left hip radiographs is unremarkable. Mild left elbow degenerative change. Left elbow radiographs are otherwise unremarkable. Electronically authenticated by: DION MENDOZA Date: 02/23/2024 22:24 Discharge Plan Discharge Stand Alone Forms: Portal Instructions Chief Complaint: Extremity Injury, Lower Clinical Impression: Acute UTI Patient Disposition: Home, Self-Care Time of Disposition Decision: 22:39 Condition: Good Mode of Transportation: Private Vehicle Prescriptions / Home Meds: New cephalexin 500 mg capsule 500 mg PO TID 7 Days Qty: 21 0RF No Action ondansetron 4 mg tablet,disintegrating 4 mg PO Q8H PRN (Reason: nausea and vomiting) 4 Days Qty: 16 0RF alprazolam 0.5 mg tablet 0.5 mg PO BID carvedilol 12.5 mg tablet 12.5 mg PO DAILY hydrocodone-acetaminophen 5-325 mg tablet 1 tab PO Q6H PRN (Reason: pain) hydroxychloroquine 200 mg tablet 200 mg PO DAILY levothyroxine 100 mcg tablet 100 mcg PO DAILY Gemtesa 75 mg tablet 75 mg PO DAILY Hold Instructions: Doctor's Order ondansetron 4 mg tablet,disintegrating 4 mg PO Q6H PRN (Reason: nausea and vomiting) Qty: 12 0RF docusate sodium 100 mg capsule 100 mg PO DAILY Linzess 145 mcg capsule 145 mcg PO DAILY escitalopram oxalate [Lexapro] 5 mg tablet 5 mg PO DAILY hydrocortisone [Procto-Med HC] 2.5 % cream with perineal applicator 1 applic SC BID PRN (Reason: hemorrhoids) aspirin 81 mg capsule 81 mg PO DAILY ferrous sulfate [Ailyn-Time] 325 mg (65 mg iron) tablet 325 mg PO BID Print Language: Mosotho Instructions: Urinary Tract Infection in Older Adults (ED) Referrals: Shaikh Leung MD [Primary Care Provider] - 1 week
--- NOTE | 2024-02-23 21:29 | XR_ITS ---
The [address] [address] Patient Name: SIMA LEY MRN: [id number] date: 1945 Sex: F Assigned Patient Location: ED.MAIN Current Patient Location: ER Accession/Order Number: [id number] Exam Date: 02/23/2024 21:34 Report Date: 02/23/2024 22:24 At the request of: ADRIÁN PRIEST Procedure: XR elbow LT min 3V Exam: Radiographs: XR hip LT min 2V, XR elbow LT min 3V Reason for exam: Pain, recent surgery Comparison: None XR/XR elbow LT min 3V IMPRESSION: Left femoral neck internal fixation screws across a subcapital femoral neck fracture. Mild left hip degenerative change. Atherosclerotic calcifications. Remainder of the left hip radiographs is unremarkable. Mild left elbow degenerative change. Left elbow radiographs are otherwise unremarkable. Electronically authenticated by: DION MENDOZA Date: 02/23/2024 22:24
--- NOTE | 2024-02-23 21:34 | PC.NURSE ---
PT HAD INTERNAL LEFT HIP FIXATION WITH SCREW AT [facility] ON 02/16/24. PT CURRENTLY AT [facility]. PT COMPLAINS OF ROUGH TRANSFER WITH SLIDE BOARD AND STATED INCREASED PAIN TO LEFT HIP. UPON READING [facility] DOCUMENTATION THAT PT HAS SUNDOWNER SYNDROME AND HAS BEEN CAUGHT IN BATHROOM UNASSISTED SEVERAL TIMES DURING THE NIGHT. NO VISIBLE ABNORMALITIES NOTED TO LEFT HIP AND DRESSING TO LEFT HIP IS CLEAN AND DRY.
--- NOTE | 2024-02-23 21:40 | NUTR.NU ---
PT FELL AT HOME AND FRACTURED LEFT RADIUS. PT WAS TREATED FOR FRACTURE ON 02/16/24 AT [facility] AND WAS SPLINTED ON 02/16/24. PT IS CURRENTLY SNF AT [facility]. [facility] NURSE CONTACTED AND REPORTED THAT PT REMOVED SPLINT HERSELF AND UNSURE IF ORTHOPEDIST WANTED IT RE-SPLINTED OR NOT. PT FAMILY STATES THAT LEFFT ELBOW LOOKS DIFFERENT AND WANTS IT RESCANNED.
[2024-02-23 22:13] LABS: Bilirubin Urine NEGATIVE (NEGATIVE); Blood Urine NEGATIVE (NEGATIVE); Clarity Urine CLEAR (CLEAR); Color Urine LT. YELLOW (YELLOW); Glucose Urine UA NEGATIVE (NEGATIVE); Ketones Urine NEGATIVE (NEGATIVE); Leukocyte Esterase Urine SMALL (NEGATIVE); Nitrite Urine NEGATIVE (NEGATIVE); Protein Urine NEGATIVE (NEG/TRACE); Specific Gravity Urine 1.025 (1.005-1.025); pH Urine 6.5 (5.0-9.0)
[2024-02-23 22:30] LABS: Bacteria Urine SMALL #/HPF (NONE SEEN); Cast Seen? NONE SEEN #/LPF (NONE SEEN); Crystals Seen? None Seen #/HPF (None Seen); Mucus Urine NONE SEEN (NONE SEEN); Squamous Epithelial Cell Urine FEW #/LPF (NONE/RARE); Urine Culture Indicated YES
[2024-02-23] MEDS: CEPHALEXIN 500 MG CAPSULE PO (22:57)
[2024-02-24] VITALS: O2SAT 97
[2024-02-24 00:01] VITALS: BP 159/79; O2SAT 97
[2024-02-24 00:30] VITALS: BP 157/75
[2024-02-24] MEDS: ONDANSETRON 4 MG RAPDIS TABLET SL (01:02)
[2024-02-24 01:48] VITALS: BP 157/75; PULSE 76; TEMP 37.1; O2SAT 97
== END 2024-02-24 01:48 | disposition home or self-care (01) ==
PROVIDERS: Emergency Provider Emergency Medicine; PCP Internal Medicine
DX: N39.0 Urinary tract infection, site not specified (principal); Z87.81 Personal history of (healed) traumatic fracture
CPT/HCPCS: 73080; 73502; 81001; 87086; 99284; Q0162

== ENCOUNTER 2024-04-03 02:30 | Emergency (ER) | payer MEDICARE, MEDICAID, SELFPAY ==
[2024-04-03 02:38] VITALS: BP 168/86; PULSE 76; TEMP 36.6; O2SAT 99
--- NOTE | 2024-04-03 02:52 | ED.FALL1 ---
HPI HPI - Fall General Chief Complaint: Fall Stated Complaint: FALL Time Seen by Provider: 04/03/24 02:52 History of Present Illness HPI Narrative: This 78-year-old female with a history of dementia is transferred from the extended care facility where she currently resides after she was found on the floor. It is unclear exactly how she fell. The patient denies any complaint of pain. The patient thinks that she was tossing and turning in bed and rolled out of bed. She has no chest pain or shortness of breath. She denies any neck pain or back pain. There is no injury noted to her head. She has no hip pain. She states she has left knee pain but that is not new. Related Data Home Medications ?Medication ?Instructions ?Recorded ?Confirmed alprazolam 0.5 mg tablet 0.5 mg PO BID 12/03/23 04/03/24 carvedilol 12.5 mg tablet 12.5 mg PO Q12H 12/03/23 04/03/24 hydrocodone 5 mg-acetaminophen 325 1 tab PO Q6H PRN pain 12/03/23 04/03/24 mg tablet hydroxychloroquine 200 mg tablet 200 mg PO DAILY 12/03/23 04/03/24 levothyroxine 100 mcg tablet 112 mcg PO DAILY 12/03/23 04/03/24 docusate sodium 100 mg capsule 100 mg PO DAILY 01/27/24 04/03/24 escitalopram oxalate 5 mg tablet 5 mg PO DAILY 01/27/24 04/03/24 (Lexapro) aspirin 81 mg capsule 81 mg PO DAILY 02/23/24 04/03/24 ferrous sulfate 325 mg (65 mg 325 mg PO BID 02/23/24 04/03/24 iron) tablet (Ailyn-Time) hydrocortisone 2.5 % topical cream 1 applic MI BID PRN hemorrhoids 02/23/24 02/23/24 with perineal applicator (Procto-Med HC) cephalexin 500 mg capsule mg 04/03/24 losartan 100 mg tablet mg 04/03/24 quetiapine 25 mg tablet mg 04/03/24 Previous Rx's ?Medication ?Instructions ?Recorded ondansetron 4 mg disintegrating 4 mg PO Q8H PRN nausea and 08/06/23 tablet vomiting 4 days #16 tabs ondansetron 4 mg disintegrating 4 mg PO Q6H PRN nausea and 12/03/23 tablet vomiting #12 tabs Allergies Allergy/AdvReac Type Severity Reaction Status Date / Time buspirone Allergy Unknown Unknown Verified 04/03/24 17:40 ciprofloxacin [From Cipro] Allergy Unknown Unknown Verified 04/03/24 17:40 nitrofurantoin Allergy Unknown Unknown Verified 04/03/24 17:40 [From Macrobid] fentanyl AdvReac Severe Anxiety Verified 04/03/24 17:40 prochlorperazine AdvReac Severe Vomiting Verified 04/03/24 17:40 [From Compazine] solifenacin AdvReac Severe Blurry Verified 04/03/24 17:40 Vision Opioid HPI Opioid Management Most Recent Pain and Opioid Data: Last Pain Scale 7 04/03/24 20:02 Review of Systems ROS Status of ROS 10 or more systems reviewed and unremarkable except as noted in history and below PFSH [facility] Social History Smoking status: Never smoker Exam Narrative Exam Narrative: Vital signs and Nursing Notes reviewed: Patient is afebrile with a normal pulse, blood pressure is elevated 168/86, she is not hypoxic with pulse ox of 99% on room air General: Alert, nontoxic elderly female, she is well-appearing, she is oriented to person, she seems to remember falling out of bed, GCS 15, no respiratory distress HEENT: Normocephalic atraumatic, mucous membranes are moist and pink, eyes are clear, normal conjunctiva, vision is grossly intact Neck: No midline bony vertebral tenderness or step-off Chest: Lungs are clear to auscultation with good air entry, there is no wheezing rhonchi or rales appreciated no accessory muscle use, patient is speaking in complete sentences-no chest wall tenderness to palpation CVS: Regular rate and rhythm S1-S2, no murmurs rubs or gallops, pulses are brisk and equal bilaterally ABD: Soft, nondistended, nontender, no rebound guarding or rigidity, bowel sounds are normal, no pulsatile masses appreciated, stable pelvic rock Extremities: Moving all extremities, no lower extremity tenderness or swelling noted, negative Homans' sign, pulses are brisk and equal bilaterally, no midline bony vertebral difficult, thoracic or lumbar tenderness or step-off, no skin rash noted, she is able to flex and extend at hips bilaterally. There is no tenderness of the feet, lower legs, knees femurs or hips, leg lengths are equal Skin: There is a large blue bruise to the right lateral hip area Neuro: No focal deficits Constitutional Vital Signs, click to edit/add: Last Vital Signs Temp 97.9 F 04/03/24 02:38 Pulse 76 04/03/24 02:38 Resp 16 04/03/24 02:38 BP 153/84 H 04/03/24 07:23 Pulse Ox 94 L 04/03/24 07:25 O2 Del Method Room Air 04/03/24 02:38 Course Vital Signs Vital signs: Vital Signs Temperature 97.9 F 04/03/24 02:38 Pulse Rate 76 04/03/24 02:38 Respiratory Rate 16 04/03/24 02:38 Blood Pressure 168/86 H 04/03/24 02:38 Pulse Oximetry 99 04/03/24 02:38 Oxygen Delivery Method Room Air 04/03/24 02:38 Temperature 97.9 F 04/03/24 02:38 Pulse Rate 76 04/03/24 02:38 Respiratory Rate 16 04/03/24 02:38 Blood Pressure 153/84 H 04/03/24 07:23 Pulse Oximetry 94 L 04/03/24 07:25 Oxygen Delivery Method Room Air 04/03/24 02:38 MDM - Fall MDM Narrative Medical decision making narrative: This 78-year-old female who is status post left hip fracture with 3 pins in her left hip was transferred from the [facility] where she currently resides for evaluation after she was found on the floor. She have some degree of dementia. Initially upon arrival she was completely comfortable and denied any complaint of pain. She was taken to CT scan to scan her head, cervical spine and pelvis as she was found on her left side and she has had a hip fracture on this side in the past. She does have some bruising on the right side. She declined the need for any pain medication initially. The patient believes that she was thrashing around in bed and rolled out of bed. CT scan of the brain and cervical spine was negative for acute findings. X-ray of the pelvis and hip shows a impacted fracture of the left femoral neck. This was discussed with Dr. Hogan, orthopedics on-call. He reviewed the x-ray and request a CT scan of the hip. After CT scan the patient began crying stating that her back hurt. In addition to the CT scan of the hip a CT scan of the lumbar spine was ordered at this time. A Lomax catheter was placed for comfort. Her urine is positive for UTI. She is allergic to Cipro and was given an IM dose of Rocephin. CT scan of the lumbar spine is negative for acute findings and CT scan of the hip is consistent with the x-ray findings of the impacted fracture of the femoral head. Dr. Hogan was again consulted regarding the CT scan and he will review it when he gets to work later this morning. Medical Records Medical records narrative: [place] [address] CT Scan Report Signed Patient: SIMA LEY MR#: [id number] : 1945 Acct:[id number] Age/Sex: 78 / F ADM Date: 04/03/24 Loc: ER Attending Dr: Ordering Physician: Janae Talbot Date of Service: 04/03/24 Procedure(s): CT cervical spine wo con Accession Number(s): [id number] cc: Shaikh Alfred Leung~ The [address] [address] Patient Name: SIMA LEY MRN: [id number] date: 1945 Sex: F Assigned Patient Location: ER Current Patient Location: ER Accession/Order Number: [id number] Exam Date: 04/03/2024 03:07 Report Date: 04/03/2024 03:54 At the request of: JANAE TALBOT Procedure: CT cervical spine wo con EXAM: CT head/brain wo con, CT cervical spine wo con HISTORY: unwitnessed fall, AMS INDICATION: 78 years old; Female. TECHNIQUE: CT Head (ax/cor/sag reformats). Ionizing radiation dose reduced via iterative reconstruction/FBP blend and body size kV/mA adjustment. Comparison: None FINDINGS: POSTOPERATIVE CHANGES: None. BRAIN PARENCHYMA: No intraparenchymal or extra-axial hemorrhage. No mass effect. No midline shift or herniation. Patchy low-density is seen in the white matter without mass effect. VENTRICLES/EXTRA-AXIAL SPACES: Enlarged, consistent with atrophy. SINUSES/MASTOIDS: Sinuses are clear although the maxillary sinuses are not completely included. Mastoids and middle ears are clear. MSK: No displaced or depressed calvarial fracture. OTHER: No hyperdense intraluminal thrombus. Vascular calcifications are present in the anterior and posterior circulation. TECHNIQUE: CT imaging of the cervical spine was performed. IV contrast: None. Dose reduction techniques were achieved by using automated exposure control and/or adjustment of mA and/or kV according to patient size and/or use of iterative reconstruction technique. COMPARISON: Cervical x-ray dated 05/23/2014. FINDINGS: POSTOPERATIVE CHANGES: None. ALIGNMENT: Normal cervical lordotic curve. Patient is tilted to the right. COMPRESSION FRACTURES: No fracture or vertebral body collapse. No bone displacement. No asymmetric widening of the facets. PREVERTEBRAL SOFT TISSUES: Normal. CRANIOCERVICAL JUNCTION: There is a normal relationship of the occipital condyles, lateral masses of C1, and articular surfaces of C2. The base of the dens and body of C2 are intact. There is narrowing of the predental space with spurring arising from the anterior arch of C1 and the tip of the dens. There is pseudoarthrosis between the osteophytes and the adjacent clivus. POSTERIOR FOSSA: The cerebellar tonsils are above the foramen magnum. Disc levels: C2-C3: No disc herniation. No spinal canal or foraminal narrowing. C3-C4: Disc bulging and endplate osteophyte formation. Facet degeneration uncovertebral joint degeneration the left. Central canal patent. Neural foramina patent. C4-C5: Disc space narrowing posteriorly. Uncovertebral joint degeneration and facet degeneration on the right. Central canal is patent. Mild right foraminal stenosis. C5-C6: No disc herniation. No spinal canal or foraminal narrowing. C6-C7: Beam hardening artifacts. Central canal patent. Neural foramina patent. C7-T1: Beam hardening artifacts. Central canal patent. Neural foramina patent. UPPER THORACIC SPINE: Not included in the examination. OTHER: A hypoplastic appearing thyroid gland. Vascular calcifications are noted. 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 CT/CT cervical spine wo con IMPRESSION: 1. No acute intracranial abnormality. No hemorrhage or mass effect. 2. Nonspecific white matter changes. 3. Atrophy. 4. Vascular calcification. 5. No cervical fracture or bony displacement. Cervical spondylosis is noted. Electronically authenticated by: JULIUS BANSAL Date: 04/03/2024 03:54 [place] [address] XRay Report Signed Patient: SIMA LEY MR#: [id number] : 1945 Acct:[id number] Age/Sex: 78 / F ADM Date: 04/03/24 Loc: ER Attending Dr: Ordering Physician: Janae Talbot Date of Service: 04/03/24 Procedure(s): XR hip LT 2V w/ pelvis Accession Number(s): [id number] cc: Shaikh Alfred Leung; Janae Marker~ The [place] [id number] Patient Name: SIMA LEY MRN: [id number] date: 1945 Sex: F Assigned Patient Location: ER Current Patient Location: ER Accession/Order Number: [id number] Exam Date: 04/03/2024 03:24 Report Date: 04/03/2024 04:11 At the request of: JANAE MARKER Procedure: XR hip LT 2V w/ pelvis PROCEDURE: XR hip LT 2V w/ pelvis HISTORY: unwitnessed fall COMPARISON: XR hip left 02/23/2024 FINDINGS: BONES:Band of increased density within the femoral neck. All 3 screws from prior femoral neck repair now protrude further from the lateral margin of the proximal femur/intertrochanteric region consistent with impaction fracture and compression of the neck. No displacement. No significant joint space narrowing or periarticular degenerative changes. SOFT TISSUES:No visible soft tissue swelling. EFFUSION:None visible. OTHER: Negative. XR/XR hip LT 2V w/ pelvis IMPRESSION: 1. Prior left femoral neck fracture via 3 lag screws with new/acute impaction fracture of the left femoral neck. No displacement. Electronically authenticated by: REHAN GARCIA Date: 04/03/2024 04:11 [place] [address] CT Scan Report Signed Patient: SIMA LEY MR#: [id number] : 1945 Acct:[id number] Age/Sex: 78 / F ADM Date: 04/03/24 Loc: ER Attending Dr: Ordering Physician: Janae Talbot Date of Service: 04/03/24 Procedure(s): CT lumbar spine wo con Accession Number(s): [id number] cc: Shaikh Alfred Leung~ The [place] [address] Patient Name: SIMA LEY MRN: [id number] date: 1945 Sex: F Assigned Patient Location: ER Current Patient Location: ER Accession/Order Number: [id number] Exam Date: 04/03/2024 05:05 Report Date: 04/03/2024 05:35 At the request of: JANAE TALBOT Procedure: CT lumbar spine wo con EXAM: CT lumbar spine wo con CT lumbar spine wo con INDICATION: 78 years old; Female.fall OOB TECHNIQUE: CT of the lumbar spine.Contrast None. Sagittal and coronal images as well as axial reconstructions through the disc spaces were produced. . Ionizing radiation dose reduced via iterative reconstruction/FBP blend and body size kV/mA adjustment. COMPARISON: Images of lumbar spine performed as part of a CT the abdomen and pelvis dated 01/08/2024. FINDINGS: POSTOPERATIVE CHANGES: None ALIGNMENT AND LORDOSIS: Mild loss of normal lumbar lordosis. Grade 1 degenerative spondylolisthesis at L3-L4. L3 is positioned 1.85 mm anterior L4. VERTEBRAE: No fracture or vertebral body collapse. No bone destruction. Generalized bony demineralization is present. Transverse processes are intact. No lytic or blastic lesions. DISC LEVELS: L1-L2: Bilateral facet degeneration. No disc herniation. Central canal, neural foramina, lateral recesses are patent. L2-L3: Disc bulging and endplate osteophyte formation, asymmetrically greater on the left. Bilateral facet degeneration with vacuum changes on the right. Central canal patent. Mild left-sided foraminal stenosis. L3-L4: Facet degeneration with grade 1 degenerative spondylolisthesis. Bony overgrowth and ligamentous thickening is present. There is narrowing of the lateral diameter the canal with flattening the posterolateral aspect of the thecal sac. Neural foramina patent. L4-L5: Vacuum disc degeneration, disc bulging, endplate osteophyte formation, facet degeneration, and ligamentous thickening. There is moderate central canal stenosis with circumferential compression of the thecal sac. Mild bilateral foraminal stenosis is present. L5-S1: Facet degeneration with bony overgrowth bilaterally. No disc herniation or bulging. There is mild narrowing of the medial margin of the left neural foramen due to osteophytes arising from the left facets. Right neural foramen is patent. LOWER THORACIC DISCS: At T11-T12 and T12-L1, no disc herniation or bulging is seen. Central canal and neural foramina are patent. The study does not visualize the distal cord or conus. OTHER: Posterior paraspinal muscles and psoas muscles are intact. No drainable fluid collections. Vascular calcifications are present. Extrarenal pelvis on the right. CT/CT lumbar spine wo con IMPRESSION: 1. No acute fracture or vertebral body collapse. 2. Multilevel degenerative changes. Stenosis is worse at the L4-L5 level. Please see the detailed discussion of the individual levels in the body of this report. Electronically authenticated by: JULIUS BANSAL Date: 04/03/2024 05:[address] [address] [address] Scan Report Signed Patient: SIMA LEY MR#: [id number] : 1945 Acct:[id number] Age/Sex: 78 / F ADM Date: 04/03/24 Loc: ER Attending Dr: Ordering Physician: Janae Talbot Date of Service: 04/03/24 Procedure(s): CT hip LT wo con Accession Number(s): [id number] cc: Shaikh Alfred Leung~ The [address] [address] Patient Name: SIMA LEY MRN: [id number] date: 1945 Sex: F Assigned Patient Location: ER Current Patient Location: ED.MAIN Accession/Order Number: [id number] Exam Date: 04/03/2024 05:05 Report Date: 04/03/2024 06:12 At the request of: JANAE TALBOT Procedure: CT hip LT wo con EXAM: CT hip LT wo con HISTORY: fall, left hip fx on xray COMPARISON: Left hip series dated 04/03/2024 and 02/23/2024. TECHNIQUE: Routine CT left hip without intravenous contrast. FINDINGS: There are 3 cannulated screws anchored within the left femoral head. There is a new acute impacted subcapital fracture which is traversed by the cannulated screws with greater extension of the proximal aspect of the 3 cannulated screws into the soft tissues adjacent to the proximal left femur. The fracture is mildly comminuted medially. One of the cannulated screws extends to the articular surface along the anterior superior aspect of the femoral head. It is difficult to tell whether there is disruption of the subchondral plate within this region (series 7 image 25). The left femoral head maintains a normal relationship with the left acetabulum. Image portions of the left iliac bone are otherwise intact. The left superior and inferior pubic rami are intact. There are mild degenerative changes at the symphysis which is otherwise intact. The bony structures are osteopenic. There is no muscular derangement. There are mild stranding densities within the subcutaneous tissues lateral to the left hip. Correlate with clinical findings to differentiate ecchymosis from edema and inflammation. There are atheromatous calcifications of the iliac, common femoral, femoral and profunda femoral arteries. There is a Lomax catheter with the balloon tip within the urinary bladder. CT/CT hip LT wo con IMPRESSION: There are 3 cannulated screws anchored within the left femoral head. There is a new acute impacted subcapital fracture which is traversed by the cannulated screws with greater extension of the proximal aspect of the 3 cannulated screws into the soft tissues adjacent to the proximal left femur. The fracture is mildly comminuted medially. One of the cannulated screws extends to the articular surface along the anterior superior aspect of the femoral head. It is difficult to tell whether there is disruption of the subchondral plate within this region (series 7 image 25). The left femoral head maintains a normal relationship with the left acetabulum. There are mild stranding densities within the subcutaneous tissues lateral to the left hip. Correlate with clinical findings to differentiate ecchymosis from edema and inflammation. Electronically authenticated by: TRAVIS MELO Date: 04/03/2024 06:12 Lab Data Attestation: I reviewed the patient's lab results. Labs: Lab Results 04/03/24 Range/Units 04:50 Urine Color Yellow (YELLOW) Urine Clarity Clear (CLEAR) Urine pH 6.0 (5.0-9.0) Ur Specific [place] >=1.030 A (1.005-1.025) Urine Protein 30 A (NEG/TRACE) mg/dL Urine Glucose (UA) Negative (NEGATIVE) mg/dL Urine Ketones Negative (NEGATIVE) mg/dL Urine Occult Blood Moderate A (NEGATIVE) Urine Nitrite Negative (NEGATIVE) Urine Bilirubin Negative (NEGATIVE) Urine Urobilinogen 1.0 (0.2-1.0) EU/dL Ur Leukocyte Esterase Large A (NEGATIVE) Urine RBC 5-10 A (0-2) #/HPF Urine WBC >100 A (NONE SEEN) #/HPF Ur Squamous Epith Cells Few A (NONE/RARE) #/LPF Urine Crystals None seen (None Seen) #/HPF Urine Bacteria Trace A (NONE SEEN) #/HPF Urine Casts None seen (NONE SEEN) #/LPF Urine Mucus None seen (NONE SEEN) Ur Culture Indicated? Yes Discharge Plan Discharge Stand Alone Forms: Portal Instructions Chief Complaint: Fall Clinical Impression: Fall from bed, initial encounter, Closed fracture of left hip, Acute UTI Patient Disposition: Home, Self-Care Time of Disposition Decision: 07:51 Condition: Fair Mode of Transportation: EMS Prescriptions / Home Meds: No Action ondansetron 4 mg tablet,disintegrating 4 mg PO Q8H PRN (Reason: nausea and vomiting) 4 Days Qty: 16 0RF alprazolam 0.5 mg tablet 0.5 mg PO BID carvedilol 12.5 mg tablet 12.5 mg PO Q12H hydrocodone-acetaminophen 5-325 mg tablet 1 tab PO Q6H PRN (Reason: pain) hydroxychloroquine 200 mg tablet 200 mg PO DAILY levothyroxine 100 mcg tablet 112 mcg PO DAILY Rx Instructions: orally daily; ondansetron 4 mg tablet,disintegrating 4 mg PO Q6H PRN (Reason: nausea and vomiting) Qty: 12 0RF docusate sodium 100 mg capsule 100 mg PO DAILY escitalopram oxalate [Lexapro] 5 mg tablet 5 mg PO DAILY hydrocortisone [Procto-Med HC] 2.5 % cream with perineal applicator 1 applic MI BID PRN (Reason: hemorrhoids) aspirin 81 mg capsule 81 mg PO DAILY ferrous sulfate [Ailyn-Time] 325 mg (65 mg iron) tablet 325 mg PO BID quetiapine 25 mg tablet cephalexin 500 mg capsule losartan 100 mg tablet Print Language: Brazilian Instructions: Hip Fracture (ED) Referrals: Rehan Hogan MD [Physician] - 1 week Shaikh Leung MD [Primary Care Provider] - 1 week Discharge Date/Time: 04/03/24 11:24
--- NOTE | 2024-04-03 02:57 | CT_ITS ---
The [address] [address] Patient Name: SIMA LEY MRN: [facility]:[id number] date: 1945 Sex: F Assigned Patient Location: ER Current Patient Location: Accession/Order Number: [id number] Exam Date: 04/03/2024 03:07 Report Date: 04/03/2024 03:54 At the request of: JESSA MARKER Procedure: CT head/brain wo con EXAM: CT head/brain wo con, CT cervical spine wo con HISTORY: unwitnessed fall, AMS INDICATION: 78 years old; Female. TECHNIQUE: CT Head (ax/cor/sag reformats). Ionizing radiation dose reduced via iterative reconstruction/FBP blend and body size kV/mA adjustment. Comparison: None FINDINGS: POSTOPERATIVE CHANGES: None. BRAIN PARENCHYMA: No intraparenchymal or extra-axial hemorrhage. No mass effect. No midline shift or herniation. Patchy low-density is seen in the white matter without mass effect. VENTRICLES/EXTRA-AXIAL SPACES: Enlarged, consistent with atrophy. SINUSES/MASTOIDS: Sinuses are clear although the maxillary sinuses are not completely included. Mastoids and middle ears are clear. MSK: No displaced or depressed calvarial fracture. OTHER: No hyperdense intraluminal thrombus. Vascular calcifications are present in the anterior and posterior circulation. TECHNIQUE: CT imaging of the cervical spine was performed. IV contrast: None. Dose reduction techniques were achieved by using automated exposure control and/or adjustment of mA and/or kV according to patient size and/or use of iterative reconstruction technique. COMPARISON: Cervical x-ray dated 05/23/2014. FINDINGS: POSTOPERATIVE CHANGES: None. ALIGNMENT: Normal cervical lordotic curve. Patient is tilted to the right. COMPRESSION FRACTURES: No fracture or vertebral body collapse. No bone displacement. No asymmetric widening of the facets. PREVERTEBRAL SOFT TISSUES: Normal. CRANIOCERVICAL JUNCTION: There is a normal relationship of the occipital condyles, lateral masses of C1, and articular surfaces of C2. The base of the dens and body of C2 are intact. There is narrowing of the predental space with spurring arising from the anterior arch of C1 and the tip of the dens. There is pseudoarthrosis between the osteophytes and the adjacent clivus. POSTERIOR FOSSA: The cerebellar tonsils are above the foramen magnum. Disc levels: C2-C3: No disc herniation. No spinal canal or foraminal narrowing. C3-C4: Disc bulging and endplate osteophyte formation. Facet degeneration uncovertebral joint degeneration the left. Central canal patent. Neural foramina patent. C4-C5: Disc space narrowing posteriorly. Uncovertebral joint degeneration and facet degeneration on the right. Central canal is patent. Mild right foraminal stenosis. C5-C6: No disc herniation. No spinal canal or foraminal narrowing. C6-C7: Beam hardening artifacts. Central canal patent. Neural foramina patent. C7-T1: Beam hardening artifacts. Central canal patent. Neural foramina patent. UPPER THORACIC SPINE: Not included in the examination. OTHER: A hypoplastic appearing thyroid gland. Vascular calcifications are noted. 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 CT/CT head/brain wo con IMPRESSION: 1. No acute intracranial abnormality. No hemorrhage or mass effect. 2. Nonspecific white matter changes. 3. Atrophy. 4. Vascular calcification. 5. No cervical fracture or bony displacement. Cervical spondylosis is noted. Electronically authenticated by: JULIUS BANSAL Date: 04/03/2024 03:54
--- NOTE | 2024-04-03 02:57 | XR_ITS ---
The [address] [address] Patient Name: SIMA LEY MRN: [id number] date: 1945 Sex: F Assigned Patient Location: ER Current Patient Location: ER Accession/Order Number: [id number] Exam Date: 04/03/2024 03:24 Report Date: 04/03/2024 04:11 At the request of: JESSA MARKER Procedure: XR hip LT 2V w/ pelvis PROCEDURE: XR hip LT 2V w/ pelvis HISTORY: unwitnessed fall COMPARISON: XR hip left 02/23/2024 FINDINGS: BONES:Band of increased density within the femoral neck. All 3 screws from prior femoral neck repair now protrude further from the lateral margin of the proximal femur/intertrochanteric region consistent with impaction fracture and compression of the neck. No displacement. No significant joint space narrowing or periarticular degenerative changes. SOFT TISSUES:No visible soft tissue swelling. EFFUSION:None visible. OTHER: Negative. XR/XR hip LT 2V w/ pelvis IMPRESSION: 1. Prior left femoral neck fracture via 3 lag screws with new/acute impaction fracture of the left femoral neck. No displacement. Electronically authenticated by: YOJANA GARCIA Date: 04/03/2024 04:11
--- NOTE | 2024-04-03 02:58 | CT_ITS ---
The [address] [address] Patient Name: SIMA LEY MRN: [facility]:[id number] date: 1945 Sex: F Assigned Patient Location: ER Current Patient Location: Accession/Order Number: [id number] Exam Date: 04/03/2024 03:07 Report Date: 04/03/2024 03:54 At the request of: JESSA MARKER Procedure: CT cervical spine wo con EXAM: CT head/brain wo con, CT cervical spine wo con HISTORY: unwitnessed fall, AMS INDICATION: 78 years old; Female. TECHNIQUE: CT Head (ax/cor/sag reformats). Ionizing radiation dose reduced via iterative reconstruction/FBP blend and body size kV/mA adjustment. Comparison: None FINDINGS: POSTOPERATIVE CHANGES: None. BRAIN PARENCHYMA: No intraparenchymal or extra-axial hemorrhage. No mass effect. No midline shift or herniation. Patchy low-density is seen in the white matter without mass effect. VENTRICLES/EXTRA-AXIAL SPACES: Enlarged, consistent with atrophy. SINUSES/MASTOIDS: Sinuses are clear although the maxillary sinuses are not completely included. Mastoids and middle ears are clear. MSK: No displaced or depressed calvarial fracture. OTHER: No hyperdense intraluminal thrombus. Vascular calcifications are present in the anterior and posterior circulation. TECHNIQUE: CT imaging of the cervical spine was performed. IV contrast: None. Dose reduction techniques were achieved by using automated exposure control and/or adjustment of mA and/or kV according to patient size and/or use of iterative reconstruction technique. COMPARISON: Cervical x-ray dated 05/23/2014. FINDINGS: POSTOPERATIVE CHANGES: None. ALIGNMENT: Normal cervical lordotic curve. Patient is tilted to the right. COMPRESSION FRACTURES: No fracture or vertebral body collapse. No bone displacement. No asymmetric widening of the facets. PREVERTEBRAL SOFT TISSUES: Normal. CRANIOCERVICAL JUNCTION: There is a normal relationship of the occipital condyles, lateral masses of C1, and articular surfaces of C2. The base of the dens and body of C2 are intact. There is narrowing of the predental space with spurring arising from the anterior arch of C1 and the tip of the dens. There is pseudoarthrosis between the osteophytes and the adjacent clivus. POSTERIOR FOSSA: The cerebellar tonsils are above the foramen magnum. Disc levels: C2-C3: No disc herniation. No spinal canal or foraminal narrowing. C3-C4: Disc bulging and endplate osteophyte formation. Facet degeneration uncovertebral joint degeneration the left. Central canal patent. Neural foramina patent. C4-C5: Disc space narrowing posteriorly. Uncovertebral joint degeneration and facet degeneration on the right. Central canal is patent. Mild right foraminal stenosis. C5-C6: No disc herniation. No spinal canal or foraminal narrowing. C6-C7: Beam hardening artifacts. Central canal patent. Neural foramina patent. C7-T1: Beam hardening artifacts. Central canal patent. Neural foramina patent. UPPER THORACIC SPINE: Not included in the examination. OTHER: A hypoplastic appearing thyroid gland. Vascular calcifications are noted. 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 CT/CT cervical spine wo con IMPRESSION: 1. No acute intracranial abnormality. No hemorrhage or mass effect. 2. Nonspecific white matter changes. 3. Atrophy. 4. Vascular calcification. 5. No cervical fracture or bony displacement. Cervical spondylosis is noted. Electronically authenticated by: JULIUS BANSAL Date: 04/03/2024 03:54
--- OUTSIDE RECORDS SUMMARY | 2024-04-03 03:05 | XMS_ITS | CCD ---
Author Organization [facility] Inform ion Partnership [facility] Care Team Providers Care Java User Interface Developer Name Role Phone WILIAN, LISET Unavailable Unavailable WILIAN, LISET Unavailable Unavailable SANTANA, ASHUTOSH Unavailable Unavailable SANTANA, ASHUTOSH Unavailable Unavailable Mary Toure Unavailable MD Ashutosh Santana Primary Care Provider MD Rashard Aguilar Attending Provider [phone] MAX, DR ASHUTOSH Esparza Primary Care Unavailable [...] Provider MD Rashard Aguilar Attending Provider Lidya Almanzar. Primary Care Physician Shayy Garza Unavailable NONE, XXXX Primary Care Physician Unavailab le NO FAMILY, PHYSICIAN Primary Care Provider Unava ilable SUMAN Toure Attending Provider [phone] ABIGAIL Garza Attending Provider PILI VELASCO Referring Unavailable SANTANA, ASHUTOSH E Primary Care Unavailable SUMAN Toure Attending Provider MD Rashard Aguilar Attending Provider [phone] Mary Toure Admitting Unavailable Mary Toure Attending Unavailable NO FAMILY, PHYSICIAN Primary Care Unavailable Lauren, Rashard Attending Unavailable Ashutosh Santana E Primary Care Unavailable Lauren, Rashard Admitting Unavailable Rashard Aguilar Attending Unavailable Ashutosh Santana Primary Care Unavailable Halsreedhary, Rashard Admitting Unavailable Garza, Shayy L Admitting Unavailable Garza Shayy L Attending Unavailable NO FAMILY, PHYSICIAN Primary Care Unavailable Lauren Rashard Attending Unavailable NO FAMILY, PHYSICIAN Primary Care Unavailable Haladay, Rashard Admitting Unavailable Garza, Shayy L Admitting Unavailable Garza, Shayy L Attending Unavailable NO FAMILY, PHYSICIAN Primary Care Unavailable Xochitl PIPER, [facility] Primary Care Provider SHAIKH LEUNG Primary Care Physician [phone] Gem Contreras Attending Unavailable Gem Contreras Attending Unavailable Gem Contreras Attending Unavailable Lidya Almanzar Attending Unavailable Gem Contreras Attending Unavailable Lidya Almanzar Attending Unavailable Ldiya Almanzar Attending Unavailable Lidya Almanzar Attending Unavailable [...] Valerio Referring Unavailable Rahul Salas Attending Unavaila Tonio Garvey Attending Unavaila ble MICHAEL YOUNG Attending Unavailable ROSS, LIDYA E Referring Unavailable ROSS, LIDYA E Primary Care Unavailable MICHAEL YOUNG Attending Unavailable ROSS, LIDYA E Referring Unavailable ROSS, ILDYA E Primary Care Unavailable HANNAHMICHAEL BERNARD G Attending Unavailable ROSS, LIDYA E Referring Unavailable ROSS, LIDYA E Primary Care Unavailable SYDNIE WADSWORTH I Attending Unavailable ROSS, LIDYA E Referring Unavailable ROSS, LIDYA E Primary Care Unavailable JANET GARCIA Attending Unavailable ROSS, LIDYA E Referring Unavailable FAWWAD, DRAKE Primary Care Unavailable GOLDSTEINDEBBIE Referring Unavailable FAWWAD, [facility] Primary Care Unavailable ROSS, LIDYA E Primary Care Unavailable YOJANA ROLLINS Attending Unavailable YOJANA ROLLINS Attending Unavailable YOJANA ROLLINS Referring Unavailable ROSS, LIDYA E Primary Care Unavailable MICHAEL YOUNG Attending Unavailable MICHAEL YOUNG Referring Unavailable ROSS, LIDYA E Primary Care Unavailable FAWWAD, DRAKE Referring Unavailable FAWWAD, [facility] Primary Care Unavailable FAWWAD, [facility] Primary Care Unavailable GINI CHOW Attending UnavailJAZIEL Banuelos Admitting Unavailab CHELE Hern[employer] Consulting Unavailable CASSIE DIEHL Consulting Unavailable KIM BEAUCHAMP Referring Unavailable FAWCAD, DRAKE Primary Care Unavailable KIM BEAUCHAMP Attending Unavailable KIM BEAUCHAMP Attending Unavailable KIM BEAUCHAMP Referring Unavailable FAWWAD, DRAKE Primary Care Unavailable KIM BEAUCHAMP Attending Unavailable NITO KIM Herbert Referring Unavailable FAWWAD, DRAKE Primary Care Unavailable KIM BEAUCHAMP Attending Unavailable NITO KIM D Referring Unavailable FAWWAD, [facility] Primary Care Unavailable JULIUS MA Referring Unavailable FAWWAD, DRAKE Primary Care Unavailable FAWWAD, DRAKE Attending Unavailable THEODOREWAD, DRAKE Attending Unavailable SERA JENSEN Attending Unavailable FAMELY, DRAKE Attending Unavailable SHAND, DRAKE Attending Unavailable JOIE FITZGERALD Attending Unavailable XOCHITL, DRAKE Attending Unavailable SERA JENSEN Attending Unavailable SERA JENSEN Referring Unavailable SHAIKH LEUNG Attending Unavailable SERA JENSEN Attending Unavailable SERA JENSEN Referring Unavailable SHAIKH LEUNG Attending Unavailable SIMRAN GARCIA Attending Unavailable Allergies Allergy Classification Reported Allergen(s) Allergy Type Date of Onset Reaction(s) Facility (20 sources) prochlorperazine; 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: [compazine] Drug Allergy 12-12-19 12 AOF, throat swelling, unknown [facility] Repository (10 sources) Ciprofloxacin Drug Allergy 05-15-20 20 rash, Unknown Therapeutic Proteins Other (1 source) Levamisole Drug Allergy [facility] Repository (8 sources) atorvastatin; 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: [atorvastatin] Drug Allergy unknown [facility] (12 sources) Solifenacin; 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: [solifenacin] Drug Allergy 04-04-20 22 Unknown [facility] (1 source) Ciprofloxacin Drug Allergy 08-17-20 [facility] Repository (4 sources) Prochlorperazine; 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: [PROCHLORPERAZINE] Drug Allergy 01-04-20 17 [facility] Repository (1 source) atorvastatin Drug Allergy 08-24-19 Other [facility] (4 sources) busPIRone; 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: [BUSPIRONE] Drug Allergy 11-17-19 22 Unknown [facility] Healthcare (4 sources) Nitrofurantoin; 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: [NITROFURANTOIN MACROCRYSTAL] Drug Allergy 01-04-20 17 [facility] (1 source) Nitrofurantoin Drug Allergy 10-17-19 17 [facility] Healthcare (1 source) Prochlorperazine Drug Allergy 09-29-19 07 Anaphylaxis, GI intolerance, Other, Swelling, Unknown [facility] Healthcare (3 sources) Ciprofloxacin; 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: [CIPROFLOXACIN HCL] Drug Allergy 01-04-20 [facility] Repository (2 sources) fentaNYL; 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: [FENTANYL] Drug Allergy 02-16-20 24 [facility] Repository Medications Current Medications Medication Drug Class(es) Dates Sig (Normalized) Sig (Original) acetaminophen 325 mg / HYDROcodone bitartrate 5 mg oral tablet (8 sources) Opioid Agonist Start: 11-02-2023 acetaminophen-hydr ocodone 325 mg-5 mg oral tablet 1 tab(s), Oral, q6hr, 90 tab(s), Refill(s) 0, [facility] #[id number], 167, cm, 06/22/23 15:56:00 EDT, Height/Length Dosing, 75.7, kg, 06/22/23 15:56:00 EDT, Weight Dosing Start Date: 06/22/23 Status: Ordered Start: 05-30-2023 acetaminophen- hydrocodone 325 mg-5 mg oral tablet 1 tab(s), Oral, q6hr, 90 tab(s), Refill(s) 0, [facility] #[id number], 167, cm, 05/30/23 14:35:00 EDT, Height/Length Dosing, 77.1, kg, 05/30/23 14:35:00 EDT, Weight Dosing Start Date: 05/30/23 Status: Ordered Start: 03-10-2023 acetaminophen- hydrocodone 325 mg-5 mg oral tablet 1 tab(s), Oral, q6hr, 90 tab(s), Refill(s) 0, [facility] #[id number], 167, cm, 12/20/22 16:33:00 EDT, Height/Length Dosing, 82, kg, 12/20/22 16:33:00 EDT, Weight Dosing Start Date: 03/10/23 Status: Ordered take 1 tablet by theo th in the morning, then take 1 tablet by mouth in the evening, then take 1 tablet by mouth at bedtime HYDROcodone-acetaminophen ([place]) 5-325 MG tablet Take 1 tablet by [...] anxiety, # 10 tab(s), Refills(s) 0, Pharmacy: [facility] #[id number], 167, cm, 05/25/23 15:36:00 EDT, Height/Length Dosing, 76.6, kg, 05/25/23 15:36:00 EDT, Weight Dosing Start Date: 05/29/23 Status: Ordered Start: 04-25-2023 take 1 tablet by theo three times daily as needed for anxiety alprazolam 0.5 mg Tab 0.5 mg = 1 tab(s), Oral, TID, PRN for anxiety, # 30 tab(s), Refills(s) 0, Pharmacy: [facility] #[id number], 167, cm, 04/20/23 14:55:00 EDT, Height/Length Dosing, 78.6, kg, 04/20/23 14:55:00 EDT, Weight Dosing Start Date: 04/25/23 Status: Ordered Start: 03-28-2023 take 1 tablet by [facility] three times daily as needed for anxiety alprazolam 0.5 mg Tab 0.5 mg = 1 tab(s), Oral, TID, PRN for anxiety, # 30 tab(s), Refills(s) 0, Pharmacy: [facility] #[id number], 167, cm, 03/28/23 13:02:00 EDT, Height/Length Dosing, [...] BID, # 60 tab(s), Refills(s) 3, Pharmacy: [facility] #[id number], 170, cm, 08/15/23 14:27:00 EST, Height/Length Dosing, [...] elías, Rectal, TID, 10 gram, Refill(s) 0, [id number], 167, cm, 03/20/23 11:45:00 EDT, Height/Length Dosing, [...] QID, # 60 tab(s), Refills(s) 1, Pharmacy: [facility] #[id number], 167, cm, 06/01/23 14:55:00 EDT, Height/Length Dosing, [...] qAM, # 30 tab(s), Refills(s) 6, Pharmacy: [facility] #[id number], 167, cm, 05/25/23 15:36:00 EDT, Height/Length Dosing, 76.6, kg, 05/25/23 15:36:00 EDT, Weight Dosing Start Date: 05/26/23 Status: Ordered levothyroxine sodium 0.1 mg oral tablet (17 sources) l-Thyroxine Start: 11-30-2022 take 1 tablet by mouth once daily levothyroxine 100 mcg (0.1 mg) Tab 100 mcg = 1 tab(s), Oral, Daily, # 90 tab(s), Refills(s) 3, Pharmacy: [facility] #[id number], 167.4, cm, 11/02/22 15:26:00 EDT, Height/Length Dosing, [...] Daily, # 30 tab(s), Refills(s) 3, [id number], 170, cm, 08/15/23 14:27:00 EST, Height/Length Dosing, [...] day(s), # 21 tab(s), Refills(s) 0, [id number], 167, cm, 04/20/23 14:55:00 EDT, Height/Length Dosing, [...] q8hr, # 10 tab(s), Refills(s) 1, Pharmacy: [facility] #[id number], 167, cm, 06/01/23 14:55:00 EDT, Height/Length Dosing, [...] Coronary arteriosclerosis; 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: [Atherosclerotic heart disease of [place] coronary artery without angina pectoris] Onset: 4 [...] Chronic Fracture of neck of femur (hip) (2 sources) Nondisplaced fracture of base of neck of left femur, subsequent encounter for closed fracture with routine healing; 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: [Fracture of unspecified part of neck [...] current use of opiate analgesic drug; 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 Left hip: 03/05/2024 COMPARISON: 02/15/2024 FINDINGS: 3 views the hip were obtained. 3 cannulated screws traverse the femoral neck on the left. There is no gross hardware complication. Callus formation is present at the fracture site with incomplete characterization provided. Degenerative changes are present within the pelvis with osteophyte IMPRESSION: Healing femoral neck fracture status post internal fixation. Finalized by Michael Garcia MD on 03/08/2024 8:22 AM Normal [facility] CBC AND AUTO DIFFon 02-19-20 24 ABSOLUTE BASOPHIL 0.0 X10E9/L Normal 0.0-0.2 [facility] Comment on above: Performed By: #### U A #### [facility] ([id number]) [address] [place] [address] ABSOLUTE NEUTROPHIL 4.3 X10E9/L Normal 1.5-6.6 [facility] Comment on above: Performed By: #### U A #### [facility] ([id number]) [address], [address] [place] [address] Basophils/100 WBC (Bld) 0.7 % Normal [facility] Comment on above: Performed By: #### U A #### [facility] ([id number]) [address], [address] [place] [address] Eosinophils (Bld) [#/Vol] 0.4 10*3/uL Normal 0.0-0.4 [facility] Comment on above: Performed By: #### U A #### [facility] ([id number]) [address], [address] [place] [address] Eosinophils/100 WBC (Bld) 6.5 % Normal [facility] Comment on above: Performed By: #### U A #### [facility] ([id number]) [address], [address] [place] [address] Erythrocyte distribution width (RBC) [Ratio] 15.9 % High 11.5-15.0 [facility] Comment on above: Performed By: #### U A #### [facility] ([id number]) [address] [address] [place] [address] Hematocrit (Bld) [Volume fraction] 29.6 % Low 35-47 [facility] Comment on above: Performed By: #### U A #### [facility] ([id number]) [address] [address] [place] [address] Hemoglobin (Bld) [Mass/Vol] 9.9 g/dL Low 11.7-15.5 [facility] Comment on above: Performed By: #### U A #### [facility] ([id number]) [address] [address] [place] [address] Lymphocytes (Bld) [#/Vol] 1.3 10*3/uL Normal 1.0-3.5 [facility] Comment on above: Performed By: #### U A #### [facility] ([id number]) [address] [address] [place] [address] Lymphocytes/100 WBC (Bld) 19.6 % Normal [facility] Comment on above: Performed By: #### U A #### [facility] ([id number]) [address] [address] [place] [address] MCH (RBC) [Entitic mass] 31.3 pg Normal 27-34 [facility] Comment on above: Performed By: #### U A #### [facility] ([id number]) [address] [place] [address] MCHC (RBC) [Mass/Vol] 33.5 g/dL Normal 32-36 [facility] Comment on above: Performed By: #### U A #### [facility] ([id number]) [address], [address] [place] [address] MCV (RBC) [Entitic vol] 94 fL Normal 80-100 [facility] Comment on above: Performed By: #### U A #### [facility] ([id number]) [address] [place] [address] Monocytes (Bld) [#/Vol] 0.7 10*3/uL Normal 0-0.9 [facility] Comment on above: Performed By: #### U A #### [facility] ([id number]) [address], [address] [place] [address] Monocytes/100 WBC (Bld) 10.5 % Normal [facility] Comment on above: Performed By: #### U A #### [facility] ([id number]) [address] [place] [address] Neutrophils/100 WBC (Bld) 62.7 % Normal [facility] Comment on above: Performed By: #### U A #### [facility] ([id number]) [address] [place] [address] Platelet mean volume (Bld) [Entitic vol] 7.7 fL Normal 7-12 [facility] Comment on above: Performed By: #### U A #### [facility] ([id number]) [address] [place] [address] Platelets (Bld) [#/Vol] 216 10*3/uL Normal 150-450 [facility] Comment on above: Performed By: #### U A #### [facility] ([id number]) [address] [place] [address] RBC COUNT 3.16 X10E12/L Low 3.80-5.20 [facility] Comment on above: Performed By: #### U A #### [facility] ([id number]) [address] [place] [address] WBC (Bld) [#/Vol] 6.8 10*3/uL Normal 4.0-11.0 [facility] Comment on above: Performed By: #### U A #### [facility] ([id number]) [address] [facility] [place] [address] FERRITINon 02-19-2024 Ferritin [Mass/Vol] 169 ng/mL Normal 11-307 [facility] Comment on above: Performed By: #### Marietta OLIVEIRA CMP, 80340-5 #### [facility] ([id number]) [address] [place] [address] IRON PROFILEon 02-19-2024 Iron [Mass/Vol] 16 ug/dL Low 50-170 [facility] Comment on above: Performed By: #### Marietta OLIVEIRA, CMP, 50877-3 #### [facility] ([id number]) [address] [place] [address] IRON BINDING 220 ug/dL Low 250-425 [facility] Comment on above: Performed By: #### Marietta OLIVEIRA, CMP, 62139-1 #### [facility] ([id number]) [address] [place] [address] IRON SATURATION 7 % SATURATION Low 15-50 [facility] Comment on above: Performed By: #### Marietta OLIVEIRA, CMP, 57351-2 #### [facility] ([id number]) [address] [facility], [place] [address] MAGNESIUMon 02-19-2024 Magnesium [Mass/Vol] 1.8 mg/dL Normal 1.8-2.6 [facility] Comment on above: Performed By: #### C BCA, CMP, 03710-8 #### [facility] ([id number]) [address] [place] [address] AMMONIAon 02-18-2024 Ammonia (P) [Moles/Vol] 10 umol/L Low 11-35 [facility] Comment on above: Performed By: #### U A #### [facility] ([id number]) [address] [place] [address], [address] [address] BLOOD CULTUREon 02-18-2024 Bacteria identified Aer cx Nom (Bld) CULTURE RESULTS NO GROWTH 5 DAYS Normal [facility] CBC AND AUTO DIFFon 02-18-20 24 ABSOLUTE BASOPHIL 0.0 X10E9/L Normal 0.0-0.2 [facility] Comment on above: Performed By: #### T SHR #### [facility] ([id number]) [address] [place] [address], [address] [address] ABSOLUTE NEUTROPHIL 6.1 X10E9/L Normal 1.5-6.6 [facility] Comment on above: Performed By: #### T SHR #### [facility] ([id number]) [address] [place] [address], [facility] [address] [place] [address] Basophils/100 WBC (Bld) 0.4 % Normal [facility] Comment on above: Performed By: #### T SHR #### [facility] ([id number]) [address] [place] [address] Eosinophils (Bld) [#/Vol] 0.2 10*3/uL Normal 0.0-0.4 [facility] Comment on above: Performed By: #### T SHR #### [facility] ([id number]) [address] [place] [address] Eosinophils/100 WBC (Bld) 2.9 % Normal [facility] Comment on above: Performed By: #### T SHR #### [facility] ([id number]) [address] [place] [address] Erythrocyte distribution width (RBC) [Ratio] 15.6 % High 11.5-15.0 [facility] Comment on above: Performed By: #### T SHR #### [facility] ([id number]) [address] [place] [address] Hematocrit (Bld) [Volume fraction] 29.3 % Low 35-47 [facility] Comment on above: Performed By: #### T SHR #### [facility] ([id number]) [address] [place] [address] Hemoglobin (Bld) [Mass/Vol] 9.8 g/dL Low 11.7-15.5 [facility] Comment on above: Performed By: #### T SHR #### [facility] ([id number]) [address] [place] [address] Lymphocytes (Bld) [#/Vol] 1.2 10*3/uL Normal 1.0-3.5 [facility] Comment on above: Performed By: #### T SHR #### [facility] ([id number]) [address] [place] [address] Lymphocytes/100 WBC (Bld) 14.3 % Normal [facility] Comment on above: Performed By: #### T SHR #### [facility] ([id number]) [address] [place] [address] MCH (RBC) [Entitic mass] 31.5 pg Normal 27-34 [facility] Comment on above: Performed By: #### T SHR #### [facility] ([id number]) [address] [place] [address] MCHC (RBC) [Mass/Vol] 33.5 g/dL Normal 32-36 [facility] Comment on above: Performed By: #### T SHR #### [facility] ([id number]) [address] [place] [address] MCV (RBC) [Entitic vol] 94 fL Normal 80-100 [facility] Comment on above: Performed By: #### T SHR #### [facility] ([id number]) [address] [place] [address] Monocytes (Bld) [#/Vol] 0.8 10*3/uL Normal 0-0.9 [facility] Comment on above: Performed By: #### T SHR #### [facility] ([id number]) [address] [place] [address] Monocytes/100 WBC (Bld) 9.4 % Normal [facility] Comment on above: Performed By: #### T SHR #### [facility] ([id number]) [address] [place] [address] Neutrophils/100 WBC (Bld) 73.0 % Normal [facility] Comment on above: Performed By: #### T SHR #### [facility] ([id number]) [address] [place] [address] Platelet mean volume (Bld) [Entitic vol] 7.8 fL Normal 7-12 [facility] Comment on above: Performed By: #### T SHR #### [facility] ([id number]) [address] [place] [address] Platelets (Bld) [#/Vol] 182 10*3/uL Normal 150-450 [facility] Comment on above: Performed By: #### T SHR #### [facility] ([id number]) [address] [place] [address] RBC COUNT 3.12 X10E12/L Low 3.80-5.20 [facility] Comment on above: Performed By: #### T SHR #### [facility] ([id number]) [address], [address] [place] [address] WBC (Bld) [#/Vol] 8.3 10*3/uL Normal 4.0-11.0 [facility] Comment on above: Performed By: #### T SHR #### [facility] ([id number]) [address] [place] [address] COMPREHENSIVE METABOLIC PANE Ricardo 02-18-2024 Albumin [Mass/Vol] 2.9 g/dL Low 3.2-5.3 [facility] Comment on above: Performed By: #### T SHR #### [facility] ([id number]) [address] [place] [address] ALP [Catalytic activity/Vol] 63 U/L Normal 39-130 [facility] Comment on above: Performed By: #### T SHR #### [facility] ([id number]) [address] [place] [address] ALT [Catalytic activity/Vol] 24 U/L Normal 0-31 [facility] Comment on above: Performed By: #### T SHR #### [facility] ([id number]) [address] [place] [address] Anion gap [Moles/Vol] 7 mmol/L Normal 5-15 [facility] Comment on above: Performed By: #### T SHR #### [facility] ([id number]) [address] [place] [address] AST [Catalytic activity/Vol] 31 U/L Normal 0-41 [facility] Comment on above: Performed By: #### T SHR #### [facility] ([id number]) [address] [address] [place] [address] Bilirubin [Mass/Vol] 0.7 mg/dL Normal 0.3-1.2 [facility] Comment on above: Performed By: #### T SHR #### [facility] ([id number]) [address] [address] [place] [address] Calcium [Mass/Vol] 7.8 mg/dL Low 8.5-10.5 [facility] Comment on above: Performed By: #### T SHR #### [facility] ([id number]) [address] [address] [place] [address] Chloride [Moles/Vol] 104 mmol/L Normal 98-109 [facility] Comment on above: Performed By: #### T SHR #### [facility] ([id number]) [address] [address] [place] [address] CO2 [Moles/Vol] 24 mmol/L Normal 22-32 [facility] Comment on above: Performed By: #### T SHR #### [facility] ([id number]) [address] [address] [place] [address] Creatinine [Mass/Vol] 0.83 mg/dL Normal 0.40-1.00 [facility] Comment on above: Result Comment: METH OD TRACEABLE TO IDMS STANDARD Performed By: #### T SHR #### [facility] ([id number]) [address] [address] [place] [address] GFR/1.73 sq M.predicted among non-blacks MDRD (S/P/Bld) [Vol rate/Area] 72 mL/min/{1.73_m2} Normal >59 [facility] Comment on above: Result Comment: Reported eGFR is based on the CKD-EPI 2021 equation that does not use a race coefficient. Performed By: #### T SHR #### [facility] ([id number]) [address] [place] [address] Glucose [Mass/Vol] 100 mg/dL High 65-99 [facility] Comment on above: Performed By: #### T SHR #### [facility] ([id number]) [address] [place] [address] Potassium [Moles/Vol] 3.5 mmol/L Normal 3.5-5.0 [facility] Comment on above: Performed By: #### T SHR #### [facility] ([id number]) [address], [address] [place] [address] Protein [Mass/Vol] 5.3 g/dL Low 6.0-8.0 [facility] Comment on above: Performed By: #### T SHR #### [facility] ([id number]) [address], [address] [place] [address] Sodium [Moles/Vol] 135 mmol/L Normal 134-146 [facility] Comment on above: Performed By: #### T SHR #### [facility] ([id number]) [address] [place] [address] Urea nitrogen [Mass/Vol] 18 mg/dL Normal 5-27 [facility] Comment on above: Performed By: #### T SHR #### [facility] ([id number]) [address] [place] [address] CT BRAIN WO CONTon 4 CT BRAIN WO CONT CT BRAIN WO [...] Freedman MD on 02/18/2024 2:24 PM Normal [facility] Folate [Mass/Vol]on 02-18-20 24 FOLIC ACID 21.9 ng/mL Normal >5.8 [facility] Comment on above: Result Comment: NEW REFERENCE RANGE Performed By: #### U A #### [facility] ([id number]) [address] [place] [address] Lactate (P marcus) [Moles/Vol]o n 02-18-2024 LACTATE W/REFLEX 1.3 mmol/L Normal 0.4-2.0 [facility] Comment on above: Result Comment: Result did not trigger repeat Lactate, re-order if needed. Performed By: #### U A #### [facility] ([id number]) [address] [place] [address] MAGNESIUMon 02-18-2024 Magnesium [Mass/Vol] 2.0 mg/dL Normal 1.8-2.6 [facility] Comment on above: Performed By: #### T SHR #### [facility] ([id number]) [address], [address] [place] [address] Troponin I.cardiac High sens itivity method [Mass/Vol]on 02-18-2024 1 HOUR TROP I, HIGH SENSITIVITY 66 ng/L High <16 [facility] Comment on above: Result Comment: Elevations of hs-Troponin may be due to causes other than myocardial ischemia. Recommend serial hs-Troponin testing be performed. For the initial evaluation and management of chest pain patients, refer to the algorithms linked below. Emergency Patient: [email or web address] Inpatient: [email or web address] uh=[email or web address] Performed By: #### U A #### [facility] ([id number]) [address], [address] [place] [address] TROPONIN I, HIGH SENSITIVITY 70 ng/L High <16 [facility] Comment on above: Result Comment: Elevations of hs-Troponin may be due to causes other than myocardial ischemia. Recommend serial hs-Troponin testing be performed. For the initial evaluation and management of chest pain patients, refer to the algorithms linked below. Emergency Patient: [email or web address] uh=[email or web address] Inpatient: [email or web address] uh=[email or web address] Performed By: #### U A #### [facility] ([id number]) [address], [address] [place] [address] URINALYSISon 02-18-2024 Bilirubin Ql (U) Negative Normal NEG [facility] Comment on above: Performed By: #### U A #### [facility] ([id number]) [address] [place] [address] BLOOD/HGB MODERATE Abnormal NEG [facility] Comment on above: Performed By: #### U A #### [facility] ([id number]) [address], [address] [place] [address] Color (U) YELLOW Normal YELLOW [facility] Comment on above: Performed By: #### U A #### [facility] ([id number]) [address], [address] [place] [address] Glucose Ql (U) Negative Normal NEG [facility] Comment on above: Performed By: #### U A #### [facility] ([id number]) [address] [place] [address] Ketones Ql (U) Trace Abnormal NEG [facility] Comment on above: Performed By: #### U A #### [facility] ([id number]) [address] [place] [address] Leukocyte esterase Test strip Ql (U) MODERATE Abnormal NEG [facility] Comment on above: Performed By: #### U A #### [facility] ([id number]) [address] [place] [address] Nitrite Ql (U) Negative Normal NEG [facility] Comment on above: Performed By: #### U A #### [facility] ([id number]) [address], [address] [place] [address] pH (U) 6.0 [pH] Normal 5.0-8.5 [facility] Comment on above: Performed By: #### U A #### [facility] ([id number]) [address], [address] [place] [address] Protein Ql (U) 30 mg/dL Abnormal NEG [facility] Comment on above: Performed By: #### U A #### [facility] ([id number]) [address] [place] [address] R.B.CELLS 10 /hpf High 0-5 [facility] Comment on above: Performed By: #### U A #### [facility] ([id number]) [address] [place] [address] Specific gravity (U) [Rel density] 1.020 Normal 1.003-1.035 [facility] Comment on above: Performed By: #### U A #### [facility] ([id number]) [address] [place] [address] SQUAMOUS EPITHELIUM 40 /hpf High 0-5 [facility] Comment on above: Performed By: #### U A #### [facility] ([id number]) [address], [address] [place] [address] TRANSITIONAL EPITH 2 /hpf High 0 [facility] Comment on above: Performed By: #### U A #### [facility] ([id number]) [address] [address] TURBIDITY CLOUDY Abnormal CLEAR [facility] Comment on above: Performed By: #### U A #### [facility] ([id number]) [address] [place] [address] Urinalysis dipstick W Reflex Microscopic panel (U) URINE RECEIVED WITHOUT PRESERVATIVE-DELAYS IN TRANSPORT MAY AFFECT RESULTS.INTERPRET WITH CAUTION AND CLINICAL CORRELATION IS RECOMMENDED. Normal [facility] Comment on above: Performed By: #### U A #### [facility] ([id number]) [address] [address] Urobilinogen Qn (U) 0.2 {Maren'U}/dL Normal <1.1 [facility] Comment on above: Performed By: #### U A #### [facility] ([id number]) [address] [place] [address] W.B.CELLS 80 /hpf High 0-5 [facility] Comment on above: Performed By: #### U A #### [facility] ([id number]) [address] [place] [address] VENOUS BLOOD GASon 4 RHYS'S TEST Normal [facility] Comment on above: Performed By: #### U A #### [facility] ([id number]) [address] [place] [address] Base excess Calc (Bld) [Moles/Vol] 2.0 mmol/L Normal 0.0-2.0 [facility] Comment on above: Performed By: #### U A #### [facility] ([id number]) [address] [place] [address] Body temperature 98.6 [degF] Normal 37.0 [facility] Comment on above: Performed By: #### U A #### [facility] ([id number]) [address] [place] [address] HCO3 (Bld) [Moles/Vol] 27.7 mmol/L High 20.0-24.0 [facility] Comment on above: Performed By: #### U A #### [facility] ([id number]) [address] [place] [address] INSP. O2 CONC. 21 % Normal [facility] Comment on above: Performed By: #### U A #### [facility] ([id number]) [address] [place] [address] Oxygen saturation in Blood 38.0 % Low >80.0 [facility] Comment on above: Performed By: #### U A #### [facility] ([id number]) [address] [place] [address] OXYGEN SOURCE [employer] Normal [facility] Comment on above: Performed By: #### U A #### [facility] ([id number]) [address] [place] [address] PCO2, VENOUS 46.9 MMHG Normal 35-50 [facility] Comment on above: Performed By: #### U A #### [facility] ([id number]) [address] [place] [address] PH, VENOUS 7.379 Normal 7.320-7.420 [facility] Comment on above: Performed By: #### U A #### [facility] ([id number]) [address] [place] [address] PO2, VENOUS 23 MMHG Low 30-50 [facility] Comment on above: Performed By: #### U A #### [facility] ([id number]) [address] [place] [address] SAMPLE SITE N/A Normal [facility] Comment on above: Performed By: #### U A #### [facility] ([id number]) [address] [place] [address] SAMPLE TYPE VENOUS Normal [facility] Comment on above: Performed By: #### U A #### [facility] ([id number]) [address] [place] [address] VITAMIN B12on 02-18-2024 Cobalamin (Vitamin B12) [Mass/Vol] 962 pg/mL High 180-914 [facility] Comment on above: Performed By: #### U A #### [facility] ([id number]) [address] [place] [address] CBC AND AUTO DIFFon 02-17-20 24 ABSOLUTE BASOPHIL 0.0 X10E9/L Normal 0.0-0.2 [facility] Comment on above: Performed By: #### C TEE CMP, 77577-0 ####[facility] ([id number])[address] [place] [address] ABSOLUTE NEUTROPHIL 6.4 X10E9/L Normal 1.5-6.6 [facility] Comment on above: Performed By: #### C GUSTAVO OLIVEIRA, ####[facility] ([id number])[address] [place] [address] Basophils/100 WBC (Bld) 0.3 % Normal [facility] Comment on above: Performed By: #### C TEE [facility], ####[facility] ([id number])[address] [place] [address] Eosinophils (Bld) [#/Vol] 0.2 10*3/uL Normal 0.0-0.4 [facility] Comment on above: Performed By: #### [place] OLIVEIRA [facility], ####[facility] ([id number])[address] [place] [address] Eosinophils/100 WBC (Bld) 2.0 % Normal [facility] Comment on above: Performed By: #### [place] OLIVEIRA [facility], ####[facility] ([id number])[address] [place] [address] Erythrocyte distribution width (RBC) [Ratio] 15.4 % High 11.5-15.0 [facility] Comment on above: Performed By: #### [place] OLIVEIRA [facility], ####[facility] ([id number])[address] [place] [address] Hematocrit (Bld) [Volume fraction] 31.4 % Low 35-47 [facility] Comment on above: Performed By: #### [place] OLIVEIRA [facility], ####[facility] ([id number])[address] [place] [address] Hemoglobin (Bld) [Mass/Vol] 10.5 g/dL Low 11.7-15.5 [facility] Comment on above: Performed By: #### [place] OLIVEIRA CMP, ####[facility] ([id number])[address] [place] [address] Lymphocytes (Bld) [#/Vol] 1.2 10*3/uL Normal 1.0-3.5 [facility] Comment on above: Performed By: #### [place] OLIVEIRA CMP, ####[facility] ([id number])[address] [place] [address] Lymphocytes/100 WBC (Bld) 14.4 % Normal [facility] Comment on above: Performed By: #### [place] OLIVEIRA CMP, ####[facility] ([id number])[address] [place] [address] MCH (RBC) [Entitic mass] 31.5 pg Normal 27-34 [facility] Comment on above: Performed By: #### [place] OLIVEIRA CMP, ####[facility] ([id number])[address] [place] [address] MCHC (RBC) [Mass/Vol] 33.2 g/dL Normal 32-36 [facility] Comment on above: Performed By: #### [place] OLIVEIRA [facility], ####[facility] ([id number])[address] [place] [address] MCV (RBC) [Entitic vol] 95 fL Normal 80-100 [facility] Comment on above: Performed By: #### [place] OLIVEIRA CMP, ####[facility] ([id number])[address] [place] [address] Monocytes (Bld) [#/Vol] 0.7 10*3/uL Normal 0-0.9 [facility] Comment on above: Performed By: #### [place] OLIVEIRA CMP, ####[facility] ([id number])[address] [place] [address] Monocytes/100 WBC (Bld) 8.5 % Normal [facility] Comment on above: Performed By: #### [place] OLIVEIRA CMP, ####[facility] ([id number])[address] [place] [address] Neutrophils/100 WBC (Bld) 74.8 % Normal [facility] Comment on above: Performed By: #### [place] OLIVEIRA CMP, ####[facility] ([id number])[address] [place] [address] Platelet mean volume (Bld) [Entitic vol] 7.6 fL Normal 7-12 [facility] Comment on above: Performed By: #### [place] OLIVEIRA CMP, ####[facility] ([id number])[address] [place] [address] Platelets (Bld) [#/Vol] 164 10*3/uL Normal 150-450 [facility] Comment on above: Performed By: #### [place] OLIVEIRA CMP, ####[facility] ([id number])[address] [place] [address] RBC COUNT 3.31 X10E12/L Low 3.80-5.20 [facility] Comment on above: Performed By: #### [place] OLIVEIRA CMP, ####[facility] ([id number])[address] [place] [address] WBC (Bld) [#/Vol] 8.5 10*3/uL Normal 4.0-11.0 [facility] Comment on above: Performed By: #### [place] OLIVEIRA CMP, ####[facility] ([id number])[address] [place] [address] COMPREHENSIVE METABOLIC PANE Ricardo 02-17-2024 Albumin [Mass/Vol] 2.8 g/dL Low 3.2-5.3 [facility] Comment on above: Performed By: #### T SHR #### [facility] ([id number]) [address] [place] [address] ALP [Catalytic activity/Vol] 80 U/L Normal 39-130 [facility] Comment on above: Performed By: #### T SHR #### [facility] ([id number]) [address] [place] [address] ALT [Catalytic activity/Vol] 34 U/L High 0-31 [facility] Comment on above: Performed By: #### T SHR #### [facility] ([id number]) [address] [place] [address] Anion gap [Moles/Vol] 7 mmol/L Normal 5-15 [facility] Comment on above: Performed By: #### T SHR #### [facility] ([id number]) [address] [place] [address] AST [Catalytic activity/Vol] 53 U/L High 0-41 [facility] Comment on above: Performed By: #### T SHR #### [facility] ([id number]) [address] [place] [address] Bilirubin [Mass/Vol] 0.9 mg/dL Normal 0.3-1.2 [facility] Comment on above: Performed By: #### T SHR #### [facility] ([id number]) [address] [place] [address] Calcium [Mass/Vol] 7.8 mg/dL Low 8.5-10.5 [facility] Comment on above: Performed By: #### T SHR #### [facility] ([id number]) [address] [place] [address] Chloride [Moles/Vol] 105 mmol/L Normal 98-109 [facility] Comment on above: Performed By: #### T SHR #### [facility] ([id number]) [address] [place] [address] CO2 [Moles/Vol] 24 mmol/L Normal 22-32 [facility] Comment on above: Performed By: #### T SHR #### [facility] ([id number]) [address] [place] [address] Creatinine [Mass/Vol] 0.78 mg/dL Normal 0.40-1.00 [facility] Comment on above: Result Comment: METH OD TRACEABLE TO IDMS STANDARD Performed By: #### T SHR #### [facility] ([id number]) [address] [place] [address] GFR/1.73 sq M.predicted among non-blacks MDRD (S/P/Bld) [Vol rate/Area] 78 mL/min/{1.73_m2} Normal >59 [facility] Comment on above: Result Comment: Reported eGFR is based on the CKD-EPI 2020 equation that does not use a race coefficient. Performed By: #### T SHR #### [facility] ([id number]) [address] [place] [address] Glucose [Mass/Vol] 76 mg/dL Normal 65-99 [facility] Comment on above: Performed By: #### T SHR #### [facility] ([id number]) [address] [place] [address] Potassium [Moles/Vol] 3.4 mmol/L Low 3.5-5.0 [facility] Comment on above: Performed By: #### T SHR #### [facility] ([id number]) [address] [place] [address] Protein [Mass/Vol] 5.3 g/dL Low 6.0-8.0 [facility] Comment on above: Performed By: #### T SHR #### [place] [facility] ([id number]) [address] [place] [address] Sodium [Moles/Vol] 136 mmol/L Normal 134-146 [facility] Comment on above: Performed By: #### T SHR #### [facility] ([id number]) [address] [place] [address] Urea nitrogen [Mass/Vol] 18 mg/dL Normal 5-27 [facility] Comment on above: Performed By: #### T SHR #### [facility] ([id number]) [address] [place] [address] MAGNESIUMon 02-17-2024 Magnesium [Mass/Vol] 2.2 mg/dL Normal 1.8-2.6 [facility] Comment on above: Performed By: #### T SHR #### [facility] ([id number]) [address] [place] [address] Magnesium [Mass/Vol] 1.7 mg/dL Low 1.8-2.6 [facility] Comment on above: Performed By: #### T SHR #### [facility] ([id number]) [address] [place] [address] POTASSIUMon 02-17-2024 Potassium [Moles/Vol] 3.9 mmol/L Normal 3.5-5.0 [facility] Comment on above: Performed By: #### T SHR #### [facility] ([id number]) [address] [place] [address] Vitamin D+Metabolites [Mass/ Vol]on 02-17-2024 VITAMIN D 25 HYD TOT 19.7 ng/mL Low 30-100 [facility] Comment on above: Result Comment: Vitamin D status 25 [place] Vitamin D Deficiency <20 ng/mL Insufficiency 20-29 ng/mL Sufficiency 30-100 ng/mL Toxicity >100 ng/mL NOTE: A pediatric reference range has not been established by the fur blender of this kit. The [place] [employer] recommends a Vitamin D level of = or >20ng/mL in infants and children. Performed By: #### T [facility] #### [facility] ([id number]) [address] [place] [address] XR CHEST 1 VWon 02-17-2024 XR CHEST 1 VW XR CHEST 1 VW XR CHEST 1 VW CLINICAL INDICATION: Dyspnea. COMPARISON: 02/15/2024. IMPRESSION: 1. Trace pleural effusions likely present, subtle retrocardiac opacities, probably atelectasis without jane consolidation. 2. Unchanged cardiomediastinal silhouette. Finalized by Jefferson Freedman MD on 02/17/2024 7:30 AM Normal [facility] CBC AND AUTO DIFFon 02-16-20 24 ABSOLUTE BASOPHIL 0.0 X10E9/L Normal 0.0-0.2 [facility] Comment on above: Performed By: #### C SUBHASH, , CBCA, 79030-8 ####[facility] ([id number])[address] [place] [address] ABSOLUTE NEUTROPHIL 5.8 X10E9/L Normal 1.5-6.6 [facility] Comment on above: Performed By: #### C SUBHASH, , CBCA, 48405-1 ####[facility] ([id number])[address] [place] [address] Basophils/100 WBC (Bld) 0.3 % Normal [facility] Comment on above: Performed By: #### C SUBHASH, , CBCA, 17152-4 ####[facility] ([id number])[address] [place] [address] Eosinophils (Bld) [#/Vol] 0.3 10*3/uL Normal 0.0-0.4 [facility] Comment on above: Performed By: #### C SUBHASH, , CBCA, 48108-3 ####[facility] ([id number])[address] [place] [address] Eosinophils/100 WBC (Bld) 4.2 % Normal [facility] Comment on above: Performed By: #### C SUBHASH, , CBCA, 90346-1 ####[facility] ([id number])[address] [place] [address] Erythrocyte distribution width (RBC) [Ratio] 15.6 % High 11.5-15.0 [facility] Comment on above: Performed By: #### C SUBHASH, , CBCA, 93112-4 ####[facility] ([id number])[address] [place] [address] Hematocrit (Bld) [Volume fraction] 33.9 % Low 35-47 [facility] Comment on above: Performed By: #### C SUBHASH, , CBCA, 26249-0 ####[facility] ([id number])[address] [place] [address] Hemoglobin (Bld) [Mass/Vol] 11.4 g/dL Low 11.7-15.5 [facility] Comment on above: Performed By: #### C SUBHASH, , CBCA, 48545-9 ####[facility] ([id number])[address] [place] [address] Lymphocytes (Bld) [#/Vol] 1.0 10*3/uL Normal 1.0-3.5 [facility] Comment on above: Performed By: #### C SUBHASH, , CBCA, 56794-8 ####[facility] ([id number])[address] [place] [address] Lymphocytes/100 WBC (Bld) 12.5 % Normal [facility] Comment on above: Performed By: #### C SUBHASH, , CBCA, 61736-9 ####[facility] ([id number])[address] [place] [address] MCH (RBC) [Entitic mass] 31.3 pg Normal 27-34 [facility] Comment on above: Performed By: #### C SUBHASH, , CBCA, 12094-9 ####[facility] ([id number])[address] [place] [address] MCHC (RBC) [Mass/Vol] 33.8 g/dL Normal 32-36 [facility] Comment on above: Performed By: #### C SUBHASH, , CBCA, 59965-2 ####[facility] ([id number])[address] [place] [address] MCV (RBC) [Entitic vol] 93 fL Normal 80-100 [facility] Comment on above: Performed By: #### C SUBHASH, , CBCA, 79284-5 ####[facility] ([id number])[address] [place] [address] Monocytes (Bld) [#/Vol] 0.7 10*3/uL Normal 0-0.9 [facility] Comment on above: Performed By: #### C SUBHASH, 74446-1, CBCA, 70457-0 ####[facility] ([id number])[address] [place] [address] 42461 Monocytes/100 WBC (Bld) 8.9 % Normal [facility] Comment on above: Performed By: #### C SUBHASH, 41250-6, CBCA, 21461-5 ####[facility] ([id number])[address] [place] [address], [place] [address] Neutrophils/100 WBC (Bld) 74.1 % Normal [facility] Comment on above: Performed By: #### C SUBHASH, , CBCA, 85210-7 ####[facility] ([id number])[address] [place] [address] 71145 Platelet mean volume (Bld) [Entitic vol] 7.7 fL Normal 7-12 [facility] Comment on above: Performed By: #### C SUBHASH, , CBCA, 94269-0 ####[facility] ([id number])[address] [place] [address] 11081 Platelets (Bld) [#/Vol] 196 10*3/uL Normal 150-450 [facility] Comment on above: Performed By: #### C SUBHASH, , CBCA, 01328-5 ####[facility] ([id number])[address] [place] [address] 35296 RBC COUNT 3.66 X10E12/L Low 3.80-5.20 [facility] Comment on above: Performed By: #### C SUBHASH, , CBCA, 34318-0 ####[facility] ([id number])[address] [place] [address] 05900 WBC (Bld) [#/Vol] 7.8 10*3/uL Normal 4.0-11.0 [facility] Comment on above: Performed By: #### C SUBHASH, , CBCA, 22536-9 ####[facility] ([id number])[address] [place] [address] 27622 COMPREHENSIVE METABOLIC PANE Ricardo 02-16-2024 Albumin [Mass/Vol] 3.4 g/dL Normal 3.2-5.3 [facility] Comment on above: Performed By: #### C SUBHASH, 81044-1, CBCA, 28805-9 ####[facility] ([id number])[address] [place] [address] 96847 ALP [Catalytic activity/Vol] 44 U/L Normal 39-130 [facility] Comment on above: Performed By: #### C SUBHASH, 91634-6, CBCA, 69047-7 ####[facility] ([id number])[address] [place] [address] 70283 ALT [Catalytic activity/Vol] 18 U/L Normal 0-31 [facility] Comment on above: Performed By: #### C SUBHASH, 46979-5, CBCA, 43730-3 ####[facility] ([id number])[address] [place] [address] 25943 Anion gap [Moles/Vol] 6 mmol/L Normal 5-15 [facility] Comment on above: Performed By: #### C SUBHASH, , CBCA, 56217-1 ####[facility] ([id number])[address] [place] [address] 71351 AST [Catalytic activity/Vol] 24 U/L Normal 0-41 [facility] Comment on above: Performed By: #### C SUBHASH, , CBCA, 90711-2 ####[facility] ([id number])[address] [place] [address] 44110 Bilirubin [Mass/Vol] 0.9 mg/dL Normal 0.3-1.2 [facility] Comment on above: Performed By: #### C SUBHASH, 17987-0, CBCA, 48268-0 ####[facility] ([id number])[address] [place] [address] 20104 Calcium [Mass/Vol] 8.2 mg/dL Low 8.5-10.5 [facility] Comment on above: Performed By: #### C SUBHASH, 32877-7, CBCA, 93011-4 ####[facility] ([id number])[address] [place] [address] 56169 Chloride [Moles/Vol] 105 mmol/L Normal 98-109 [facility] Comment on above: Performed By: #### C SUBHASH, 24445-8, CBCA, 51283-5 ####[facility] ([id number])[address] [place] [address] 81675 CO2 [Moles/Vol] 27 mmol/L Normal 22-32 [facility] Comment on above: Performed By: #### C SUBHASH, , CBCA, 98733-4 ####[facility] ([id number])[address] [place] [address] 45866 Creatinine [Mass/Vol] 0.87 mg/dL Normal 0.40-1.00 [facility] Comment on above: Result Comment: METH OD TRACEABLE TO IDMS STANDARD Performed By: #### C SUBHASH, , CBCA, 13964-2 ####[facility] ([id number])[address] [place] [address] 61547 GFR/1.73 sq M.predicted among non-blacks MDRD (S/P/Bld) [Vol rate/Area] 68 mL/min/{1.73_m2} Normal >59 [facility] Comment on above: Result Comment: Reported eGFR is based on the CKD-EPI 2020 equation that does not use a race coefficient. Performed By: #### C SUBHASH, , CBCA, 04196-3 ####[facility] ([id number])[address] [place] [address] 50354 Glucose [Mass/Vol] 100 mg/dL High 65-99 [facility] Comment on above: Performed By: #### C SUBHASH, 06936-6, CBCA, 91868-9 ####[facility] ([id number])[address], [place] [address] Potassium [Moles/Vol] 3.4 mmol/L Low 3.5-5.0 [facility] Comment on above: Performed By: #### C SUBHASH, , CBCA, 67122-0 ####[facility] ([id number])[address] [place] [address] 22698 Protein [Mass/Vol] 5.8 g/dL Low 6.0-8.0 [facility] Comment on above: Performed By: #### C SUBHASH, , CBCA, 75020-2 ####[facility] ([id number])[address] [place] [address] 04662 Sodium [Moles/Vol] 138 mmol/L Normal 134-146 [facility] Comment on above: Performed By: #### C SUBHASH, , CBCA, 63518-9 ####[facility] ([id number])[address] [place] [address] 73389 Urea nitrogen [Mass/Vol] 15 mg/dL Normal 5-27 [facility] Comment on above: Performed By: #### C SUBHASH, , CBCA, 72218-3 ####[facility] ([id number])[address] [place] [address] 06553 HGB AND HCTon 02-16-2024 Hematocrit (Bld) [Volume fraction] 35.1 % Normal 35-47 [facility] Comment on above: Performed By: #### H H ####[facility] ([id number])[address] [place] [address] 35731 Hemoglobin (Bld) [Mass/Vol] 11.5 g/dL Low 11.7-15.5 [facility] Comment on above: Performed By: #### H H ####[facility] ([id number])[address] [place] [address] 92485 MAGNESIUMon 02-16-2024 Magnesium [Mass/Vol] 1.9 mg/dL Normal 1.8-2.6 [facility] Comment on above: Performed By: #### C SUBHASH, 53871-5, CBCA, 69638-8 ####[facility] ([id number])[address] [place] [address] 94989 Natriuretic peptide B [Mass/ Vol]on 02-16-2024 Natriuretic peptide B (Bld) [Mass/Vol] 364 pg/mL High <100.0 [facility] Comment on above: Performed By: #### C MP, 97054-6, CBCA, 91112-7 ####[facility] ([id number])[address] [place] [address] 00317 XR HIP LT 2-3 VIEWS W OR [...] Garcia MD on 02/16/2024 6:50 PM Normal [facility] 25-hydroxyvitamin D3 and Vit kang D2 panelon 02-15-2024 25-Hydroxy D Total 38 ng/mL Normal [facility] Comment on above: Result Comment: NOTE REFERENCE VALUE 25-HYDROXY D TOTAL (D2+D3) Optimum levels in the healthy population are 20-50. ADDITIONAL INFORMATION This test was developed and its performance characteristics determined by [facility] in a manner consistent with CLIA requirements. This test has not been cleared or approved by the U.S. Food and Drug Administration. Test Performed by: [facility] [address] [place] [address] Decorating Equipment Setter: Lorenzo Harrell Ph.D.; CLIA# [id number] Performed By: #### Marietta OLIVEIRA CMP, 67660-3 #### [facility] ([id number]) [address] [place] [address] 84831 25-Hydroxy D2 32 ng/mL Normal [facility] Comment on above: Performed By: #### Marietta OLIVEIRA CMP, 64439-9 #### [facility] ([id number]) [address] [place] [address] 42174 25-Hydroxy D3 5.9 ng/mL Normal [facility] Comment on above: Performed By: #### Marietta OLIVEIRA CMP, 20450-3 #### [facility] ([id number]) [address] [place] [address] 82177 CBC AND AUTO DIFFon 02-15-20 24 ABSOLUTE BASOPHIL 0.0 X10E9/L Normal 0.0-0.2 [facility] Comment on above: Performed By: #### Marietta OLIVEIRA CMP, 65024-7 #### [facility] ([id number]) [address] [place] [address] 80533 ABSOLUTE NEUTROPHIL 7.1 X10E9/L High 1.5-6.6 [facility] Comment on above: Performed By: #### Marietta OLIVEIRA CMP, 81741-9 #### [facility] ([id number]) [address] [place] [address] 27660 Basophils/100 WBC (Bld) 0.4 % Normal [facility] Comment on above: Performed By: #### Marietta OLIVEIRA CMP, 06064-7 #### [facility] ([id number]) [address] [place] [address] 75103 Eosinophils (Bld) [#/Vol] 0.2 10*3/uL Normal 0.0-0.4 [facility] Comment on above: Performed By: #### Marietta OLIVEIRA CMP, 13517-9 #### [facility] ([id number]) [address] [place] [address] 03781 Eosinophils/100 WBC (Bld) 1.8 % Normal [facility] Comment on above: Performed By: #### Marietta OLIVEIRA CMP, 43044-1 #### [facility] ([id number]) [address] [place] [address] 50932 Erythrocyte distribution width (RBC) [Ratio] 15.6 % High 11.5-15.0 [facility] Comment on above: Performed By: #### Marietta OLIVEIRA CMP, 94703-8 #### [facility] ([id number]) [address] [place] [address] 72454 Hematocrit (Bld) [Volume fraction] 35.8 % Normal 35-47 [facility] Comment on above: Performed By: #### Marietta OLIVEIRA CMP, 38616-5 #### [facility] ([id number]) [address] [place] [address] 79974 Hemoglobin (Bld) [Mass/Vol] 12.0 g/dL Normal 11.7-15.5 [facility] Comment on above: Performed By: #### Marietta OLIVEIRA CMP, 97548-1 #### [facility] ([id number]) [address] [place] [address] 29508 Lymphocytes (Bld) [#/Vol] 1.1 10*3/uL Normal 1.0-3.5 [facility] Comment on above: Performed By: #### Marietta OLIVEIRA CMP, 74775-0 #### [facility] ([id number]) [address] [place] [address] 06689 Lymphocytes/100 WBC (Bld) 11.9 % Normal [facility] Comment on above: Performed By: #### Marietta OLIVEIRA CMP, 05456-0 #### [facility] ([id number]) [address] [place] [address] 16477 MCH (RBC) [Entitic mass] 31.2 pg Normal 27-34 [facility] Comment on above: Performed By: #### Marietta OLIVEIRA CMP, 30037-6 #### [facility] ([id number]) [address] [place] [address] 46773 MCHC (RBC) [Mass/Vol] 33.6 g/dL Normal 32-36 [facility] Comment on above: Performed By: #### Marietta OLIVEIRA CMP, 48379-5 #### [facility] ([id number]) [address] [place] [address] 57691 MCV (RBC) [Entitic vol] 93 fL Normal 80-100 [facility] Comment on above: Performed By: #### Marietta OLIVEIRA CMP, 36329-4 #### [facility] ([id number]) [address] [place] [address] 43681 Monocytes (Bld) [#/Vol] 0.8 10*3/uL Normal 0-0.9 [facility] Comment on above: Performed By: #### Marietta OLIVEIRA CMP, 04212-2 #### [facility] ([id number]) [address] [place] [address] 61281 Monocytes/100 WBC (Bld) 8.3 % Normal [facility] Comment on above: Performed By: #### Marietta OLIVEIRA CMP, 67896-7 #### [facility] ([id number]) [address] [place] [address] 00589 Neutrophils/100 WBC (Bld) 77.6 % Normal [facility] Comment on above: Performed By: #### Marietta OLIVEIRA CMP, 85146-1 #### [facility] ([id number]) [address] [place] [address] 57915 Platelet mean volume (Bld) [Entitic vol] 7.0 fL Normal 7-12 [facility] Comment on above: Performed By: #### Marietta OLIVEIRA CMP, 82980-9 #### [facility] ([id number]) [address] [place] [address] 66710 Platelets (Bld) [#/Vol] 199 10*3/uL Normal 150-450 [facility] Comment on above: Performed By: #### Marietta OLIVEIRA CMP, 50193-3 #### [facility] ([id number]) [address] [place] [address] 66350 RBC COUNT 3.86 X10E12/L Normal 3.80-5.20 [facility] Comment on above: Performed By: #### Marietta OLIVEIRA CMP, 28113-2 #### [facility] ([id number]) [address] [place] [address] 69447 WBC (Bld) [#/Vol] 9.1 10*3/uL Normal 4.0-11.0 [facility] Comment on above: Performed By: #### Marietta OLIVEIRA CMP, 28547-2 #### [facility] ([id number]) [address] [place] [address] 74841 COMPREHENSIVE METABOLIC PANE Ricardo 02-15-2024 Albumin [Mass/Vol] 3.8 g/dL Normal 3.2-5.3 [facility] Comment on above: Performed By: #### Marietta OLIVEIRA CMP, 28510-4 #### [facility] ([id number]) [address] [place] [address] 78858 ALP [Catalytic activity/Vol] 52 U/L Normal 39-130 [facility] Comment on above: Performed By: #### C BCA, CMP, 65010-5 #### [facility] ([id number]) [address] [place] [address] 91432 ALT [Catalytic activity/Vol] 21 U/L Normal 0-31 [facility] Comment on above: Performed By: #### C BCA, CMP, 69129-8 #### [facility] ([id number]) [address] [place] [address] 28108 Anion gap [Moles/Vol] 6 mmol/L Normal 5-15 [facility] Comment on above: Performed By: #### C BCA, CMP, 92274-1 #### [facility] ([id number]) [address] [place] [address] 24848 AST [Catalytic activity/Vol] 29 U/L Normal 0-41 [facility] Comment on above: Performed By: #### C BCA, CMP, 20567-5 #### [facility] ([id number]) [address] [place] [address] 30394 Bilirubin [Mass/Vol] 0.7 mg/dL Normal 0.3-1.2 [facility] Comment on above: Performed By: #### C BCA, CMP, 06029-0 #### [facility] ([id number]) [address] [place] [address] 26861 Calcium [Mass/Vol] 8.6 mg/dL Normal 8.5-10.5 [facility] Comment on above: Performed By: #### C BCA, CMP, 59717-9 #### [facility] ([id number]) [address] [place] [address] 49100 Chloride [Moles/Vol] 107 mmol/L Normal 98-109 [facility] Comment on above: Performed By: #### C BCA, CMP, 56369-9 #### [facility] ([id number]) [address] [place] [address] 58112 CO2 [Moles/Vol] 25 mmol/L Normal 22-32 [facility] Comment on above: Performed By: #### C GUSTAVO OLIVEIRA, 79671-8 #### [facility] ([id number]) [address] [place] [address] 70789 Creatinine [Mass/Vol] 0.96 mg/dL Normal 0.40-1.00 [facility] Comment on above: Result Comment: METH OD TRACEABLE TO IDMS STANDARD Performed By: #### C GUSTAVO OLIVEIRA, 94078-6 #### [facility] ([id number]) [address] [place] [address] 25192 GFR/1.73 sq M.predicted among non-blacks MDRD (S/P/Bld) [Vol rate/Area] 61 mL/min/{1.73_m2} Normal >59 [facility] Comment on above: Result Comment: Reported eGFR is based on the CKD-EPI 2020 equation that does not use a race coefficient. Performed By: #### C GUSTAVO OLIVEIRA, 69044-8 #### [facility] ([id number]) [address] [place] [address] 52223 Glucose [Mass/Vol] 122 mg/dL High 65-99 [facility] Comment on above: Performed By: #### C GUSTAVO OLIVEIRA, 72759-7 #### [facility] ([id number]) [address] [place] [address] 49403 Potassium [Moles/Vol] 3.6 mmol/L Normal 3.5-5.0 [facility] Comment on above: Performed By: #### C GUSTAVO OLIVEIRA, 47618-4 #### [facility] ([id number]) [address] [place] [address] 22006 Protein [Mass/Vol] 6.8 g/dL Normal 6.0-8.0 [facility] Comment on above: Performed By: #### C BCA, CMP, 24151-0 #### [facility] ([id number]) [address] [place] [address] 80288 Sodium [Moles/Vol] 138 mmol/L Normal 134-146 [facility] Comment on above: Performed By: #### C BCA, CMP, 75668-3 #### [facility] ([id number]) [address] [place] [address] 23997 Urea nitrogen [Mass/Vol] 20 mg/dL Normal 5-27 [facility] Comment on above: Performed By: #### C BCA, CMP, 63406-8 #### [facility] ([id number]) [address] [place] [address] 99807 Prealbumin IA [Mass/Vol]on 0 02-15-2024 Prealbumin [Mass/Vol] 20 mg/dL Normal 18-45 [facility] Comment on above: Performed By: #### 8 9579-7 ####[facility] ([id number])[address] [place] [address] 78757#### 6793-4 ####[facility] ([id number])[address], [place] [address] TSH WITH REFLEXon 02-15-2024 TSH 1.79 uIU/mL Normal 0.49-4.67 [facility] Comment on above: Performed By: #### T SHR #### [facility] ([id number]) [address] [place] [address] Troponin I.cardiac High sens itivity method [Mass/Vol]on 02-15-2024 1 HOUR TROP I, HIGH SENSITIVITY 7 ng/L Normal <16 [facility] Comment on above: Performed By: #### 8 9579-7 ####[facility] ([id number])[address] [place] [address], [place] [address]#### 6793-4 ####[facility] ([id number])[address] [place] [address], [address], [place] [address] TROPONIN I, HIGH SENSITIVITY 7 ng/L Normal <16 [facility] Comment on above: Performed By: #### C BCA, CMP, 13151-3 #### [facility] ([id number]) [address] [place] [address] 25243 URINALYSISon 02-15-2024 Bilirubin Ql (U) Negative Normal NEG [facility] Comment on above: Performed By: #### U A ####[facility] ([id number])[address] [place] [address] 40584 BLOOD/HGB Large Abnormal NEG [facility] Comment on above: Performed By: #### U A ####[facility] ([id number])[address] [place] [address] 75819 Color (U) ORANGE Abnormal YELLOW [facility] Comment on above: Performed By: #### U A ####[facility] ([id number])[address] [place] [address] 17797 Glucose Ql (U) Negative Normal NEG [facility] Comment on above: Performed By: #### U A ####[facility] ([id number])[address] [place] [address] 82119 Ketones Ql (U) Trace Abnormal NEG [facility] Comment on above: Performed By: #### U A ####[facility] ([id number])[address] [place] [address] 13897 Leukocyte esterase Test strip Ql (U) MODERATE Abnormal NEG [facility] Comment on above: Performed By: #### U A ####[facility] ([id number])[address] [place] [address] 12027 MUCOUS PRESENT Abnormal NONE [facility] Comment on above: Performed By: #### U A ####[facility] ([id number])[address] [place] [address] 68771 Nitrite Ql (U) Positive Abnormal NEG [facility] Comment on above: Performed By: #### U A ####[facility] ([id number])[address] [place] [address] 97198 pH (U) 5.5 [pH] Normal 5.0-8.5 [facility] Comment on above: Performed By: #### U A ####[facility] ([id number])[address] [place] [address] 18068 Protein Ql (U) 100 mg/dL Abnormal NEG [facility] Comment on above: Performed By: #### U A ####[facility] ([id number])[address] [place] [address] 82083 R.B.CELLS PRESENT Normal 0-5 [facility] Comment on above: Performed By: #### U A ####[facility] ([id number])[address] [place] [address] 26241 Specific gravity (U) [Rel density] >1.030 Normal 1.003-1.035 [facility] Comment on above: Performed By: #### U A ####[facility] ([id number])[address] [place] [address] 09608 SQUAMOUS EPITHELIUM PRESENT Normal 0-5 [facility] Comment on above: Performed By: #### U A ####[facility] ([id number])[address] [place] [address] [place] [address] TRANSITIONAL EPITH PRESENT Normal 0 [facility] Comment on above: Performed By: #### U A ####[facility] ([id number])[address] [place] [address] 59255 TURBIDITY CLOUDY Abnormal CLEAR [facility] Comment on above: Performed By: #### U A ####[facility] ([id number])[address] [place] [address] 45831 Urinalysis dipstick W Reflex Microscopic panel (U) URINE RECEIVED WITHOUT PRESERVATIVE-DELAYS IN TRANSPORT MAY AFFECT RESULTS.INTERPRET WITH CAUTION AND CLINICAL CORRELATION IS RECOMMENDED. Normal [facility] Comment on above: Performed By: #### U A ####[facility] ([id number])[address] [place] [address] 19162 Urinalysis dipstick W Reflex Microscopic panel (U) Results may be affected due to high WBC count, Interpret with Caution. Normal [facility] Comment on above: Performed By: #### U A ####[facility] ([id number])[address] [place] [address] 08065 Urobilinogen Qn (U) 1.0 {Maren'U}/dL Normal <1.1 [facility] Comment on above: Performed By: #### U A ####[facility] ([id number])[address] [place] [address] 42967 W.B.CELLS >100 High 0-5 [facility] Comment on above: Performed By: #### U A ####[facility] ([id number])[address] [place] [address] 52163 Bilirubin Ql (U) Negative Normal NEG [facility] Comment on above: Performed By: #### U A #### [facility] ([id number]) [address], [address] [place] [address] BLOOD/HGB Small Abnormal NEG [facility] Comment on above: Performed By: #### U A #### [facility] ([id number]) [address] [place] [address] Color (U) YELLOW Normal YELLOW [facility] Comment on above: Performed By: #### U A #### [facility] ([id number]) [address] [place] [address], [address] [place] [address] Glucose Ql (U) Negative Normal NEG [facility] Comment on above: Performed By: #### U A #### [facility] ([id number]) [address] [place] [address], [address] [place] [address] Ketones Ql (U) Negative Normal NEG [facility] Comment on above: Performed By: #### U A #### [facility] ([id number]) [address] [place] [address], [address] [place] [address] Leukocyte esterase Test strip Ql (U) Large Abnormal NEG [facility] Comment on above: Performed By: #### U A #### [facility] ([id number]) [address] [place] [address], [address] [place] [address] MUCOUS PRESENT Abnormal NONE [facility] Comment on above: Performed By: #### U A #### [facility] ([id number]) [address] [place] [address], [address] [place] [address] Nitrite Ql (U) Negative Normal NEG [facility] Comment on above: Performed By: #### U A #### [facility] ([id number]) [address] [place] [address], [address] [place] [address] pH (U) 6.0 [pH] Normal 5.0-8.5 [facility] Comment on above: Performed By: #### U A #### [facility] ([id number]) [address] [place] [address], [address] [place] [address] Protein Ql (U) 50 mg/dL Abnormal NEG [facility] Comment on above: Performed By: #### U A #### [facility] ([id number]) [address] [place] [address], [address] [place] [address] R.B.CELLS 7 /hpf High 0-5 [facility] Comment on above: Performed By: #### U A #### [facility] ([id number]) [address], [address] [place] [address] Specific gravity (U) [Rel density] 1.029 Normal 1.003-1.035 [facility] Comment on above: Performed By: #### U A #### [facility] ([id number]) [address] [address] [place] [address] SQUAMOUS EPITHELIUM 24 /hpf High 0-5 [facility] Comment on above: Performed By: #### U A #### [facility] ([id number]) [address] [address] [place] [address] TURBIDITY CLOUDY Abnormal CLEAR [facility] Comment on above: Performed By: #### U A #### [facility] ([id number]) [address] [address] [place] [address] Urobilinogen (U) [Mass/Vol] mg/dL Normal <1.1 [facility] Comment on above: Performed By: #### U A #### [facility] ([id number]) [address] [address] [place] [address] W.B.CELLS >720 High 0-5 [facility] Comment on above: Performed By: #### U A #### [facility] ([id number]) [address] [place] [address] WBC CLUMPS MANY Abnormal NONE [facility] Comment on above: Performed By: #### U A #### [facility] ([id number]) [address] [place] [address] URINE CULTUREon 02-15-2024 Bacteria identified Cx Nom (U) SPECIMEN NOTES URINE RECEIVED WITHOUT PRESERVATIVE CULTURE RESULTS >100,000 ORGANISMS/mL FILOMENA GLABRATA URINE RECEIVED WITHOUT PRESERVATIVE-DELAYS IN TRANSPORT MAY AFFECT RESULTS.INTERPRET WITH CAUTION AND CLINICAL CORRELATION IS RECOMMENDED. Normal [facility] Comment on above: Performed By: #### T SHR #### [facility] ([id number]) [address] [place] [address] XR CHEST 1 VWon 02-15-2024 XR CHEST 1 VW XR CHEST 1 VW Single view chest History: Difficulty breathing, shortness of breath Comparison: 05/10/2020 Impression: 1. Central pulmonary vascular congestion. Probable trace interstitial pulmonary edema. Small left pleural effusion. No pneumothorax. 2. Nonenlarged heart. 3. Sternotomy could Finalized by Anatoliy Sifuentes MD on 02/15/2024 10:21 PM Normal [facility] XR ELBOW LT MIN 3 VWSon 01-20 XR ELBOW LT MIN 3 VWS XR ELBOW LT MIN 3 VWS XR ELBOW LT MIN 3 VWS HISTORY: fall injury. COMPARISON: none IMPRESSION: 1. Small effusion, subtle cortical irregularity about the radial head [best seen on lateral], possibly minimally displaced fracture versus degenerative changes. Finalized by Anatoliy Sifuentes MD on 02/15/2024 10:22 PM Normal [facility] XR HIP LT 2-3 VIEWS W OR [...] Sifuentes MD on 02/15/2024 10:29 PM Normal [facility] US RETROPERITONEAL COMPLETEo n 01-17-2024 US RETROPERITONEAL [...] Son MD on 01/17/2024 10:54 PM Normal [facility] XR ABDOM COMP SERIES W PA [...] Cadet MD on 01/13/2024 5:53 AM Normal [facility] Heart and Vascular Office/Cl inic Noteon 12-05-2023 Heart and Vascular Office/Clinic Note History of Present Illness Tea Rahman is a 78-year-old female who presents today for a follow-up visit. Her eldest daughter and an adult male accompanied her during the visit. The patient reports significant improvement of health condition. She had shingles for which she consulted with Dr. Leung of internal medicine at [place]. This condition caused back myalgia, and she had a challenging period. She notes a significant improvement from shingles despite a gradual recovery. Her shingles resulted in bladder and bowel issues, which have been her most distressing problems and are currently her primary concerns. She is scheduled for a follow-up appointment with a specialist in [place] in 11/2023 to address her bladder issues. [...] mmHg. 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 She experiences episodes of depression, though these are improving. She has resumed taking Xanax. Her younger daughter facilitated a consultation with a psychiatrist in [place], who manages her Xanax regimen. The psychiatrist [...] with voice recognition artificial intelligence software, specifically Affinegy, Geoforce and or YouEye. Substitutions may have occurred due to the inherent limitations of voice recognition and artificial intelligence software. Documentation services were performed after patient or guardian consented to allow [employer] to record this visit. DARVIN marketing specialist and provider reviewed before signing. DARVIN: Andrea Cabantac Follow-up No qualifying data available Problem List/Past Medical History Ongoing Adjustment disorder with anxious mood Anemia Anxiety Atherosclerosis aorta Bladder stone BMI 29.0-29.9,adult CAD in qagan tayagungin artery Complex posttraumatic stress disorder Disorder of vitami (more content not included)... Normal [facility] Comment on above: Result Comment: Elec tronically Signed By: Portillo PIPER, Rahul Varner\.br\Date and Time Signed: 12/05/23 06:20 EDT\.br\Electronically Co-Signed By: Andrea Gonzalez\.br\Date and Time Co-Signed: 11/13/23 14:21 EDT Consent for Treatmenton 10-20 Consent for Treatment [id number] 0TIFF [facility] Physician Orderon 11-13-2023 Physician Order [id number]. 00TIFF [facility] Amorphous urine sedimentOrde red By: Rashard Aguliar on 09-12-2023 Amorphous sediment LM Ql (Urine sed) See comment Negative [facility] Comment on above: Unable to obtain acc urate result due to color interference. Automated epithelial cells c ount in urine sediment (number/area)Ordered By: Rashard Aguilar on 09-12-2023 Epithelial cells Auto (Urine sed) [#/Area] 5-9 [HPF] 0-2 [facility] Automated erythrocytes count in urine sediment (number/area)Ordered By: Rashard Aguilar on 09-12-2023 RBC Auto (Urine sed) [#/Area] 3-4 [HPF] 0-4 [facility] Automated leukocytes count i n urine sediment (number/area)Ordered By: Rashard Aguilar on 09-12-2023 WBC Auto (Urine sed) [#/Area] 50-100 [HPF] 0-4 [facility] Automated urine hyaline cast s count (number/volume)Ordered By: Rashard Aguilar on 09-12-2023 Hyaline casts Auto (U) [#/Vol] 0-1 [LPF] 0-1 [facility] Automated urine specific gra vity by refractometryOrdered By: Rashard Aguilar on 09-12-2023 Specific gravity Refractometry automated (U) [Rel density] 1.028 1.001-1.030 [facility] Basophils Auto (Bld) [#/Vol] Ordered By: Rashard Aguilar on 09-12-2023 Basophils (Bld) [#/Vol] 0.0 10*3/uL 0.0-0.2 [facility] Basophils/100 WBC Auto (Bld) Ordered By: Rashard Aguilar on 09-12-2023 Basophils/100 WBC (Bld) 0.8 % . [facility] Bilirubin Auto test strip Ql (U)Ordered By: Rashard Aguilar on 09-12-2023 Bilirubin Ql (U) See comment Negative [facility] Comment on above: Unable to obtain acc urate result due to color interference. C reactive protein [Mass/vol ume] in Serum or PlasmaOrdered By: Rashard Aguilar on 09-12-2023 CRP [Mass/Vol] 0.6 mg/dL 0.0-0.5 [facility] C-Reactive Proteinon 024 C-Reactive Protein 0.6 mg/dL High 0.0-0.5 [facility] Comment on above: Result Comment: PERF ORMED BY: [place] [address] PATHOLOGIST PRINCIPAL MILITARY ANALYST KEYON SERNA M.D. Performed By: #### C BC, ADDONUAPLUS, ESR, CUU, CRP, CREAT #### [address] #### C4, C3 #### [facility] , Complement C3on 09-12-2023 Complement C3 155 mg/dL Normal 82-167 [facility] Comment on above: Result Comment: Perf ormed at: CB - [facility] [address] [id number] Decorating Equipment Setter: Paul Dumont PhD, Phone: [phone] Performed By: #### C BC, ADDONUAPLUS, ESR, CUU, CRP, CREAT #### [address] #### C4, C3 #### [facility] , Complement C4on 09-12-2023 Complement C4 34 mg/dL Normal 12-38 [facility] Comment on above: Result Comment: PERF ORMED BY: [place] [address] PATHOLOGIST PRINCIPAL MILITARY ANALYST KEYON SERNA M.D. Performed By: #### C BC, ADDONUAPLUS, ESR, CUU, CRP, CREAT #### [address] #### C4, C3 #### [facility] , Complete Blood Count Auto Di ffon 09-12-2023 Basophils (Bld) [#/Vol] 0.0 10*3/uL Normal 0.0-0.2 [facility] Comment on above: Performed By: #### C BC, ADDONUAPLUS, ESR, CUU, CRP, CREAT #### [address] #### C4, C3 #### [facility] , Basophils/100 WBC (Bld) 0.8 % Normal . [facility] Comment on above: Performed By: #### C BC, ADDONUAPLUS, ESR, CUU, CRP, CREAT #### [place] [address] [place] #### C4, C3 #### [facility] , Eosinophils (Bld) [#/Vol] 0.2 10*3/uL Normal 0.0-0.45 [facility] Comment on above: Performed By: #### C BC, ADDONUAPLUS, ESR, CUU, CRP, CREAT #### [place] [address] [place] #### C4, C3 #### [facility] , Eosinophils/100 WBC (Bld) 4.0 % Normal . [facility] Comment on above: Performed By: #### C BC, ADDONUAPLUS, ESR, CUU, CRP, CREAT #### [place] [address] [place] #### C4, C3 #### [facility] , Erythrocyte distribution width (RBC) [Ratio] 14.3 % Normal 11.9-15.3 [facility] Comment on above: Performed By: #### C BC, ADDONUAPLUS, ESR, CUU, CRP, CREAT #### [address] #### C4, C3 #### [facility] , Hematocrit (Bld) [Volume fraction] 39.2 % Normal 34.0-46.4 [facility] Comment on above: Performed By: #### C BC, ADDONUAPLUS, ESR, CUU, CRP, CREAT #### [place] [address] [place] #### C4, C3 #### [facility] , Hemoglobin (Bld) [Mass/Vol] 12.9 g/dL Normal 11.8-15.4 [facility] Comment on above: Performed By: #### C BC, ADDONUAPLUS, ESR, CUU, CRP, CREAT #### [address] #### C4, C3 #### [facility] , Lymphocytes (Bld) [#/Vol] 1.8 10*3/uL Normal 1.00-4.8 [facility] Comment on above: Performed By: #### C BC, ADDONUAPLUS, ESR, CUU, CRP, CREAT #### [place] [address] [place] #### C4, C3 #### [facility] , Lymphocytes/100 WBC (Bld) 31.9 % Normal . [facility] Comment on above: Performed By: #### C BC, ADDONUAPLUS, ESR, CUU, CRP, CREAT #### [place] [address] [place] #### C4, C3 #### [facility] , MCH (RBC) [Entitic mass] 31.1 pg Normal 24.7-34.3 [facility] Comment on above: Performed By: #### C BC, ADDONUAPLUS, ESR, CUU, CRP, CREAT #### [address] #### C4, C3 #### [facility] , MCV (RBC) [Entitic vol] 94.4 fL Normal 80-100 [facility] Comment on above: Performed By: #### C BC, ADDONUAPLUS, ESR, CUU, CRP, CREAT #### [address] #### C4, C3 #### [facility] , Mean Corpuscular HGB Conc 33.0 g/dL Normal 32.0-35.0 [facility] Comment on above: Performed By: #### C BC, ADDONUAPLUS, ESR, CUU, CRP, CREAT #### [address] #### C4, C3 #### [facility] , Monocytes (Bld) [#/Vol] 0.5 10*3/uL Normal 0.0-0.8 [facility] Comment on above: Performed By: #### C BC, ADDONUAPLUS, ESR, CUU, CRP, CREAT #### [place] [address] [place] #### C4, C3 #### [facility] , Monocytes/100 WBC (Bld) 8.5 % Normal . [facility] Comment on above: Performed By: #### C BC, ADDONUAPLUS, ESR, CUU, CRP, CREAT #### [place] [address] [place] #### C4, C3 #### [facility] , Neutrophils (Bld) [#/Vol] 3.1 10*3/uL Normal 1.8-7.7 [facility] Comment on above: Performed By: #### C BC, ADDONUAPLUS, ESR, CUU, CRP, CREAT #### [place] [address] [place] #### C4, C3 #### [facility] , Neutrophils/100 WBC (Bld) 54.8 % Normal . [facility] Comment on above: Performed By: #### C BC, ADDONUAPLUS, ESR, CUU, CRP, CREAT #### [place] [address] [place] #### C4, C3 #### [facility] , NRBC% 0.2 /100{WBC} Normal 0-0.5 [facility] Comment on above: Performed By: #### C BC, ADDONUAPLUS, ESR, CUU, CRP, CREAT #### [place] [address] [place] #### C4, C3 #### [facility] , Platelet mean volume (Bld) [Entitic vol] 7.6 fL Normal 6.3-10.7 [facility] Comment on above: Performed By: #### C BC, ADDONUAPLUS, ESR, CUU, CRP, CREAT #### [place] [address] [place] #### C4, C3 #### [facility] , Platelets (Bld) [#/Vol] 263 10*3/uL Normal 150-450 [facility] Comment on above: Performed By: #### C BC, ADDONUAPLUS, ESR, CUU, CRP, CREAT #### [place] [address] [place] #### C4, C3 #### [facility] , RBC (Bld) [#/Vol] 4.16 10*6/uL Normal 3.60-5.00 [facility] Comment on above: Performed By: #### C BC, ADDONUAPLUS, ESR, CUU, CRP, CREAT #### [place] [address] [place] #### C4, C3 #### [facility] , WBC (Bld) [#/Vol] 5.7 10*3/uL Normal 3.8-11.6 [facility] Comment on above: Performed By: #### C BC, ADDONUAPLUS, ESR, CUU, CRP, CREAT #### [facility] [address] [place] [address] [place] #### C4, C3 #### [facility] , Creatinineon 09-12-2023 Creatinine [Mass/Vol] 0.92 mg/dL Normal 0.60-1.20 [facility] Comment on above: Performed By: #### C BC, ADDONUAPLUS, ESR, CUU, CRP, CREAT #### [place] [address] [place] #### C4, C3 #### [facility] , GFR/1.73 sq M.predicted MDRD (S/P/Bld) [Vol rate/Area] mL/min/{1.73_m2} Normal [facility] Comment on above: Performed By: #### C BC, ADDONUAPLUS, ESR, CUU, CRP, CREAT #### [place] [address] [place] #### C4, C3 #### [facility] , Creatinine [Mass/volume] in Serum or PlasmaOrdered By: Rashard Aguilar on 09-12-2023 Creatinine [Mass/Vol] 0.92 mg/dL 0.60-1.20 [facility] Dipstick and Microscopicon 0 09-12-2023 Appearance (U) Slightly Cloudy Critically abnormal Clear [facility] Comment on above: Order Comment: Name Collection Type:: Clean-Voided Midstream Performed By: #### C BC, ADDONUAPLUS, ESR, CUU, CRP, CREAT #### [place] [address] [place] #### C4, C3 #### [facility] , Bacteria,Urine 2+ High None Seen [facility] Comment on above: Order Comment: Name Collection Type:: Clean-Voided Midstream Performed By: #### C BC, ADDONUAPLUS, ESR, CUU, CRP, CREAT #### [facility] [address] [place] [address] #### C4, C3 #### [facility] , Bilirubin,Urine Normal Negative [facility] Comment on above: Order Comment: Name Collection Type:: Clean-Voided Midstream Result Comment: Unab le to obtain accurate result due to color interference. Performed By: #### C BC, ADDONUAPLUS, ESR, CUU, CRP, CREAT #### [address] #### C4, C3 #### [facility] , Color (U) [place] Critically abnormal Yellow [facility] Comment on above: Order Comment: Name Collection Type:: Clean-Voided Midstream Performed By: #### C BC, ADDONUAPLUS, ESR, CUU, CRP, CREAT #### [facility] [address] [place] [address] [place] #### C4, C3 #### [facility] , Glucose Ql (U) Normal Normal [facility] Comment on above: Order Comment: Name Collection Type:: Clean-Voided Midstream Result Comment: Unab le to obtain accurate result due to color interference. Performed By: #### C BC, ADDONUAPLUS, ESR, CUU, CRP, CREAT #### [facility] [address] [place] [address] [place] #### C4, C3 #### [facility] , Hyaline Casts,Urine 0-1 Normal 0-1 [facility] Comment on above: Order Comment: Name Collection Type:: Clean-Voided Midstream Performed By: #### C BC, ADDONUAPLUS, ESR, CUU, CRP, CREAT #### [place] [address] [place] #### C4, C3 #### [facility] , Ketones Ql (U) Normal Negative [facility] Comment on above: Order Comment: Name Collection Type:: Clean-Voided Midstream Result Comment: Unab le to obtain accurate result due to color interference. Performed By: #### C BC, ADDONUAPLUS, ESR, CUU, CRP, CREAT #### [place] [address] [place] #### C4, C3 #### [facility] , Leukocyte esterase Test strip Ql (U) Normal Negative [facility] Comment on above: Order Comment: Name Collection Type:: Clean-Voided Midstream Result Comment: Unab le to obtain accurate result due to color interference. Performed By: #### C BC, ADDONUAPLUS, ESR, CUU, CRP, CREAT #### [address] #### C4, C3 #### [facility] , Nitrite,Urine Normal Negative [facility] Comment on above: Order Comment: Name Collection Type:: Clean-Voided Midstream Result Comment: Unab le to obtain accurate result due to color interference. Performed By: #### C BC, ADDONUAPLUS, ESR, CUU, CRP, CREAT #### [place] [address] [place] #### C4, C3 #### [facility] , Occult Blood,Urine Normal Negative [facility] Comment on above: Order Comment: Name Collection Type:: Clean-Voided Midstream Result Comment: Unab le to obtain accurate result due to color interference. Performed By: #### C BC, ADDONUAPLUS, ESR, CUU, CRP, CREAT #### [place] [address] [place] #### C4, C3 #### [facility] , pH,Urine Normal 5.0-9.0 [facility] Comment on above: Order Comment: Name Collection Type:: Clean-Voided Midstream Result Comment: Unab le to obtain accurate result due to color interference. Performed By: #### C BC, ADDONUAPLUS, ESR, CUU, CRP, CREAT #### [address] #### C4, C3 #### [facility] , Protein,Urine Normal Negative [facility] Comment on above: Order Comment: Name Collection Type:: Clean-Voided Midstream Result Comment: Unab le to obtain accurate result due to color interference. Performed By: #### C BC, ADDONUAPLUS, ESR, CUU, CRP, CREAT #### [address] #### C4, C3 #### [facility] , RBC,Urine 3-4 Normal 0-4 [facility] Comment on above: Order Comment: Name Collection Type:: Clean-Voided Midstream Performed By: #### C BC, ADDONUAPLUS, ESR, CUU, CRP, CREAT #### [address] #### C4, C3 #### [facility] , Specificy [place],Urine 1.028 Normal 1.001-1.030 [facility] Comment on above: Order Comment: Name Collection Type:: Clean-Voided Midstream Performed By: #### C BC, ADDONUAPLUS, ESR, CUU, CRP, CREAT #### [address] #### C4, C3 #### [facility] , Squamous Epithelial Cell,Urine 5-9 High 0-2 [facility] Comment on above: Order Comment: Name Collection Type:: Clean-Voided Midstream Performed By: #### C BC, ADDONUAPLUS, ESR, CUU, CRP, CREAT #### [address] #### C4, C3 #### [facility] , Urobilinogen,Urine Normal Normal [facility] Comment on above: Order Comment: Name Collection Type:: Clean-Voided Midstream Result Comment: Unab le to obtain accurate result due to color interference. Performed By: #### C BC, ADDONUAPLUS, ESR, CUU, CRP, CREAT #### [facility] [address] [place] [address] #### C4, C3 #### [facility] , WBC,Urine 50-100 High 0-4 [facility] Comment on above: Order Comment: Name Collection Type:: Clean-Voided Midstream Performed By: #### C BC, ADDONUAPLUS, ESR, CUU, CRP, CREAT #### [address] #### C4, C3 #### [facility] , Yeast,Urine Rare Critically abnormal None Seen [facility] Comment on above: Order Comment: Name Collection Type:: Clean-Voided Midstream Result Comment: PERF ORMED BY: [place] [address] PATHOLOGIST PRINCIPAL MILITARY ANALYST KEYON SERNA M.D. Performed By: #### C BC, ADDONUAPLUS, ESR, CUU, CRP, CREAT #### [address] #### C4, C3 #### [facility] , Eosinophils Auto (Bld) [#/Vo l]Ordered By: Rashard Aguilar on 09-12-2023 Eosinophils (Bld) [#/Vol] 0.2 10*3/uL 0.0-0.45 [facility] Eosinophils/100 WBC Auto (Bl d)Ordered By: Rashard Aguilar on 09-12-2023 Eosinophils/100 WBC (Bld) 4.0 % . [facility] Erythrocyte Sedimentation Ra duyen 09-12-2023 ESR (Bld) [Velocity] 23 mm/h Normal 0-29 [facility] Comment on above: Result Comment: PERF ORMED BY: [facility] [address] [place] [address] PATHOLOGIST PRINCIPAL MILITARY ANALYST KEYON SERNA M.D. Performed By: #### C BC, ADDONUAPLUS, ESR, CUU, CRP, CREAT #### [facility] [address] [place] [address] [place] #### C4, C3 #### [facility] , Erythrocyte distribution wid th Auto (RBC) [Ratio]Ordered By: Rashard Aguilar on 09-12-2023 Erythrocyte distribution width (RBC) [Ratio] 14.3 % 11.9-15.3 [facility] Erythrocyte sedimentation ra te by Photometric methodOrdered By: Rashard Aguilar on 09-12-2023 ESR Photometric method (Bld) [Velocity] 23 mm/hr 0-29 [facility] Hematocrit Auto (Bld) [Volum e fraction]Ordered By: Rashard Aguilar on 09-12-2023 Hematocrit (Bld) [Volume fraction] 39.2 % 34.0-46.4 [facility] Hemoglobin [Mass/volume] in BloodOrdered By: Rashard Aguilar on 09-12-2023 Hemoglobin (Bld) [Mass/Vol] 12.9 g/dL 11.8-15.4 [facility] Ketones Test strip (U) [Mass /Vol]Ordered By: Rashard Aguilar on 09-12-2023 Ketones (U) [Mass/Vol] See comment Negative [facility] Comment on above: Unable to obtain acc urate result due to color interference. Leukocytes [#/volume] correc edwige for nucleated erythrocytes in Blood by Automated counOrdered By: Rashard Aguilar on 09-12-2023 WBC corrected for nucl RBC Auto (Bld) [#/Vol] 5.7 10*3/uL 3.8-11.6 [facility] Lymphocytes Auto (Bld) [#/Vo l]Ordered By: Rashard Aguilar on 09-12-2023 Lymphocytes (Bld) [#/Vol] 1.8 10*3/uL 1.00-4.8 [facility] Lymphocytes/100 WBC Auto (Bl d)Ordered By: Rashard Aguilar on 09-12-2023 Lymphocytes/100 WBC (Bld) 31.9 % . [facility] MCH Auto (RBC) [Entitic mass ]Ordered By: Rashard Aguilar on 09-12-2023 MCH (RBC) [Entitic mass] 31.1 pg 24.7-34.3 [facility] MCHC Auto (RBC) [Mass/Vol]Or dered By: Rashard Aguilar on 09-12-2023 MCHC (RBC) [Mass/Vol] 33.0 g/dL 32.0-35.0 [facility] MCV Auto (RBC) [Entitic vol] Ordered By: Rashard Aguilar on 09-12-2023 MCV (RBC) [Entitic vol] 94.4 fL 80-100 [facility] Monocytes Auto (Bld) [#/Vol] Ordered By: Rashard Aguilar on 09-12-2023 Monocytes (Bld) [#/Vol] 0.5 10*3/uL 0.0-0.8 [facility] Monocytes/100 WBC Auto (Bld) Ordered By: Rashard Aguilar on 09-12-2023 Monocytes/100 WBC (Bld) 8.5 % . [facility] Neutrophils Auto (Bld) [#/Vo l]Ordered By: Rashard Aguilar on 09-12-2023 Neutrophils (Bld) [#/Vol] 3.1 10*3/uL 1.8-7.7 [facility] Neutrophils/100 WBC Auto (Bl d)Ordered By: Rashard Aguilar on 09-12-2023 Neutrophils/100 WBC (Bld) 54.8 % . [facility] No Panel InformationOrdered By: Rashard Aguilar on 09-12-2023 Estimated GFR (CKD-EPI) > 60.0 mL/Min [facility] Creatinine Clearance (Chem N/A [facility] Nucleated erythrocytes [Pres ence] in Blood by Automated countOrdered By: Rashard Aguilar on 09-12-2023 Nucleated RBC Auto Ql (Bld) 0.2 /100{WBC} 0-0.5 [facility] Platelet mean volume Auto (B ld) [Entitic vol]Ordered By: Rashard Aguilar on 09-12-2023 Platelet mean volume (Bld) [Entitic vol] 7.6 fL 6.3-10.7 [facility] Platelets Auto (Bld) [#/Vol] Ordered By: Rashard Aguilar on 09-12-2023 Platelets (Bld) [#/Vol] 263 10*3/uL 150-450 [facility] Protein Auto test strip (U) [Mass/Vol]Ordered By: Rashard Aguilar on 09-12-2023 Protein (U) [Mass/Vol] See comment Negative F [facility] Comment on above: Unable to obtain acc urate result due to color interference. RBC Auto (Bld) [#/Vol]Ordere d By: Rashard Aguilar on 09-12-2023 RBC (Bld) [#/Vol] 4.16 10*6/uL 3.60-5.00 [facility] Urine Cultureon 09-12-2023 Bacteria identified Cx Nom (U) <9,000 colonies/ml mixed bacterial skin contaminants 2 Days PERFORMED BY: [place] [address] PATHOLOGIST PRINCIPAL MILITARY ANALYST KEYON SERNA M.D. [facility] Comment on above: Performed By: #### C BC, ADDONUAPLUS, ESR, CUU, CRP, CREAT #### [facility] [address] [place] [address] [place] #### C4, C3 #### [facility] , Urine appearanceOrdered By: Rashard Aguilar on 09-12-2023 Appearance (U) Slightly cloudy Clear [facility] Urine bacteria detection by automated methodOrdered By: Rashard Aguilar on 09-12-2023 Bacteria Auto Ql (U) 2+ None Seen [facility] Urine colorOrdered By: Arthur Aguilar on 09-12-2023 Color (U) [place] Yellow [facility] Urine glucose measurement by automated test strip (mass/volume)Ordered By: Rashard Aguilar on 09-12-2023 Glucose Auto test strip (U) [Mass/Vol] See comment Normal [facility] Comment on above: Unable to obtain acc urate result due to color interference. Urine leukocyte esterase det ection by automated test stripOrdered By: Rashard Aguilar on 09-12-2023 Leukocyte esterase Auto test strip Ql (U) See comment Negative [facility] Comment on above: Unable to obtain acc urate result due to color interference. Urine nitrite detection by a utomated test stripOrdered By: Rashard Aguilar on 09-12-2023 Nitrite Auto test strip Ql (U) See comment Negative [facility] Comment on above: Unable to obtain acc urate result due to color interference. Urobilinogen Test strip (U) [Mass/Vol]Ordered By: Rashard Aguilar on 09-12-2023 Urobilinogen (U) [Mass/Vol] See comment Normal [facility] Comment on above: Unable to obtain acc urate result due to color interference. WBC Auto (Bld) [#/Vol]Ordere d By: Rashard Aguilar on 09-12-2023 WBC (Bld) [#/Vol] 5.7 10*3/uL 3.8-11.6 [facility] Yeast detection in urine sed iment by light microscopyOrdered By: Rashard Aguilar on 09-12-2023 Yeast LM Ql (Urine sed) Rare [HPF] None Seen [facility] pH Auto test strip (U)Ordere d By: Rashard Aguilar on 09-12-2023 pH (U) See comment 5.0-9.0 [facility] Comment on above: Unable to obtain [...] aorta Bladder stone BMI 29.0-29.9,adult CAD in qagan [place] artery Disorder of vitamin D Essential hypertension [...] Father. Heart disease: Mother and Father. 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 She only started the medication after her heart attack and never exceeds the recommended dose. She visited [facility] due to elevated blood pressure and was checked out by a friend who is a retired nurse. She did not have a family doctor at the time. She sought help from [facility], which she does not find [...] has been treated by several doctors at [place] emergency room. Her nervous system has been [...] with voice recognition artificial intelligence software, specifically [employer], [employer] and or [employer]. Substitutions may have occurred with voice recognition and artificial intelligence software. ATTESTATION: Documentation services were performed after patient or guardian consented to allow [employer] to record this visit. DARVIN marketing specialist and provider reviewed before signing. DARVIN: Padmini Cook. Follow-up No qualifying data available Problem List/Past Medical History Ongoing Adjustment disorder with anxious mood Anemia Anxiety Atherosclerosis aorta Bladder stone BMI 29.0-29.9,adult CAD in q[place] artery Disorder of vitamin D Essential hypertension [...] Sciatica Procedu (more content not included)... [facility] [facility] Comment on above: Result Comment: Elec tronically Signed By: Portillo PIPER, Rahul Varner\.br\Date and Time Signed: 08/27/23 20:52 EST\.br\Electronically Co-Signed By: Padmini Cook\.br\Date and Time Co-Signed: 08/15/23 16:49 EST URINE CULTURE, ROUTINEon Bacteria identified Cx Nom (U) No growth at 48 hours Normal [facility] Comment on above: Performed By: #### L [id number] #### [facility] [address] [place] [address] Urinalysis - AUTOMATEDon Appearance (U) clear [employer] Other Bilirubin Ql (U) Negative [employer] Solutions Other Color (U) orange Therapeutic Proteins Other Glucose Ql (U) 100 [employer] Other Hemoglobin Ql (U) small SCI [employer] Other Ketones Ql (U) Negative [employer] Other Leukocyte esterase Test strip Ql (U) large Therapeutic Proteins Other Nitrite Ql (U) Positive [employer] Other pH (U) 5.0 [pH] Therapeutic Proteins Other Protein Ql (U) 100 [employer] Other Specific gravity (U) [Rel density] 1.010 Therapeutic Proteins Other Urobilinogen (U) [Mass/Vol] 1.0 mg/dL Therapeutic Proteins Other Urinalysis - AUTOMATED No rt [employer] Other Urine Cultureon 08-17-2023 Bacteria identified Cx Nom (U) <9,000 colonies/ml mixed bacterial skin contaminants 2 Days PERFORMED BY: [place] [address] PATHOLOGIST PRINCIPAL MILITARY ANALYST KEYON SERNA M.D. [facility] Comment on above: Performed By: #### C BC, ADDONUAPLUS, ESR, CUU, CRP, CREAT #### [facility] [address] [place] [address] #### C4, C3 #### [facility] , Bacteria identified Cx Nom (U) Therapeutic Proteins Other Urine culture routineOrdered By: Shayy Garza on 08-17-2023 Bacteria identified Cx Nom (U) 2 Days [facility] Physician Orderon 08-16-2023 Physician Order [id number]#1.0 0TIFF [facility] Ambulatory Visit Summaryon 1 2-26-2023 Ambulatory Visit Summary TEA RAHMAN :1945 Visit [...] 11:00 AM EST With: [place] Where: [facility] Monday 12:15 PM EDT With: [...] aorta Bladder stone BMI 29.0-29.9,adult CAD in qagan tayagungin artery Disorder of vitamin D Essential hypertension [...] for choosing us for your care. Normal [facility] Urinalysis - AUTOMATEDon Appearance (U) clear [employer] Other Bilirubin Ql (U) Negative [employer] Other Color (U) bright orange Therapeutic Proteins Other Glucose Ql (U) Negative [employer] Other Hemoglobin Ql (U) Negative SCI [employer] Other Ketones Ql (U) Negative [employer] Other Leukocyte esterase Test strip Ql (U) small Therapeutic Proteins Other Nitrite Ql (U) Positive [employer] Other pH (U) 6.0 [pH] Therapeutic Proteins Other Protein Ql (U) Negative [employer] Other Specific gravity (U) [Rel density] >1.010 Therapeutic Proteins Other Urobilinogen (U) [Mass/Vol] 0.2 mg/dL Therapeutic Proteins Other Urinalysis - AUTOMATED No rt [employer] Other Urine Cultureon 08-01-2023 Bacteria identified Cx Nom (U) Reason for Exam Dysuria Urine Reason for Exam: Dysuria : Urine No Growth 2 Days PERFORMED BY: [place] [address] PATHOLOGIST PRINCIPAL MILITARY ANALYST KEYON SERNA M.D. [facility] Comment on above: Performed By: #### C BC, ADDONUAPLUS, ESR, CUU, CRP, CREAT #### [facility] [address] [place] [address] #### C4, C3 #### [facility] , Bacteria identified Cx Nom (U) Therapeutic Proteins Other Urine culture routineOrdered By: Mary Toure on 08-01-2023 Bacteria identified Cx Nom (U) No Growth 2 Days [facility] Outside Recordson 07-27-2023 Outside Records [id number]#1.0 0TIFF Normal [facility] Consultation Noteon 07-25-20 Consultation Note [id number]#1.0 0TIFF Normal [facility] ED Note-Physicianon 07-19-20 ED Note-Physician [id number]#1.0 0TIFF Normal [facility] RAD - MISCon 07-19-2023 RAD - MISC [id number]#1.0 0TIFF Normal [facility] Heart and Vascular Office/Cl inic Noteon [...] with voice recognition artificial intelligence software, specifically Affine[employer], Geoforce and or YouEye. Substitutions may have occurred due to the inherent limitations of voice recognition and artificial intelligence software. ATTESTATION: Documentation services were performed after the patient or guardian consented to allow [employer] to record this visit. DARVIN marketing specialist and provider reviewed before signing. DARVIN: Veronica Fleming Follow-up No qualifying data available Problem List/Past Medical History Ongoing Anemia Anxiety Atherosclerosis aorta Bladder stone BMI 29.0-29.9,adult CAD in qagan tayagung[place] artery Disorder of vitamin D Essential hypertension [...] mg T (more content not included)... Normal [facility] Comment on above: Result Comment: [...] her insurance companies. Her urologist is at [facility] in [place], [place], and they were having problems with [...] with voice recognition artificial intelligence software, specifically Affine[employer], Geoforce and or YouEye. Substitutions may have occurred with voice recognition and artificial intelligence software. ATTESTATION: Documentation services were performed after patient or guardian consented to allow [employer] to record this visit. DARVIN marketing specialist and provider reviewed before signing. DARVIN: Ruben Bernal. Follow-up No qualifying data available Problem List/Past Medical History Ongoing Anemia Anxiety Atherosclerosis aorta Bladder stone BMI 29.0-29.9,adult CAD in qagan tayagungin artery Depression Disorder of vitamin D Essential [...] oral table (more content not included)... Normal [facility] Comment on above: Result Comment: Elec tronically Signed By: Portillo PIPER, Rahul Varner\.br\Date and Time Signed: 07/15/23 12:13 EST\.br\Electronically Co-Signed By: Ruben Bernal\.br\Date and Time Co-Signed: 05/26/23 12:49 EDT Consultation Noteon 07-06-20 Consultation Note [id number]#1.00 TIFF Normal [facility] Consultation Noteon 07-03-20 Consultation Note [id number]#1.0 0TIFF Normal [facility] Medicine Office/Clini c Noteon 06-27-2023 Family Medicine [...] it. She voiced her dissatisfaction with her clinical abstractor, having seen many but not finding one who would truly listen to her. She mentioned that one of them would just take blood samples every visit, making it difficult for her to communicate with him. She informed this clinical abstractor about a blood test for her bladder that revealed 100 stones, but he dismissed it. However, he later acknowledged that it did indeed occur. She expressed her desire to seek a different clinical abstractor due to these experiences. She states that [...] current use of opiate analgesic drug (Z79.891: bed bug exterminator (c (more content not included)... [facility] Comment on above: Result Comment: Elec tronically Signed By: Lidya Almanzar MD\.br\Date and Time Signed: 06/27/23 08:27 EST\.br\Electronically Co-Signed By: Lucia Ramos\.br\Date and Time Co-Signed: 06/22/23 20:26 EDT Behavioral Health Sensitive Noteon 06-26-2023 Behavioral Health Sensitive Note Spoke with patient and she has decided to switch primary care physicians. Clinician has continued to offer services as needed. general house worker will continue to monitor the situation. 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 Primary Care Physician - Lidya Almanzar MD. This Is Your Medications List [...] Follow-Up Appointments Monday 9:30 AM EST Where: [facility] Heart and Vascular Office/Cl inic Noteon 06-19-2023 [...] her blood pressure. She consulted her regular cloth shearing supervisor when her symptoms began. During the visit, she recalled an incident from 2 months ago when she felt chest pressure for a duration of 10 minutes. The cloth shearing supervisor reassured her that her condition, including her blood pressure concern, was normal. Despite her open-heart surgery that took place on May 10, 2020, the cloth shearing supervisor conveyed that the period since the procedure [...] up in 4 to 6 weeks in [place]. 1. Chest pain (R07.9: Chest pain, unspecified) Could represent angina we will order stress. We will also order echocardiogram 2. 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 3. HTN (hypertension) (I10: Essential (primary) hypertension) HTN: BP control with antihypertensives targeting blood pressure less than 130/80. If control is not currently achieved we will be adding additional antihypertensive or increasing dose. Stopping amlodipine Portions of this record may have been created with voice recognition artificial intelligence software, specifically Arkm[employer] (more content not included)... Normal [facility] Comment on above: Result Comment: Elec tronically Signed By: Portillo PIPER, Rahul Varner\.br\Date and Time Signed: 06/19/23 11:54 EDT\.br\Electronically Co-Signed By: Padmini Cook.br\Date and Time Co-Signed: 04/20/23 18:14 EDT Family [...] someone. She requires a refill of her [place] prescription. She was advised not to take benzodiazepines, which include Xanax and the [place], simultaneously. She primarily uses [place] to alleviate joint pain and arthritis symptoms. She mentions being diagnosed with lupus at the age of 35 [address] Torres in [place]. She also indicates that she is currently [...] go ahead and send [facility] to [facility] to help with medications. 2. Primary fibromyalgia syndrome (M79.7: Fibromyalgia) We will refill the patient's [place] for 1 month and we will see her back in a month. Discussed the pros and cons of using benzo and a narcotic at the same time. Patient understands the concerns. Patient has been a long-term user of the opioids and at this time is stable. 3. Long-term current use of opiate analgesic drug (Z79.891: jail (current) use of opiate analgesic) As per # 2. 4. Irritable bowel syndrome (K58.9: Irritable bowel syndrome without diarrhea) (more content not included)... Normal [facility] Comment on above: Result Comment: Elec tronically Signed By: Lidya Almanzar MD\.br\Date and Time Signed: 06/06/23 07:46 EDT\.br\Electronically Co-Signed By: Lucia Ramos\.br\Date and Time Co-Signed: 05/30/23 17:17 EDT Physician Orderon 06-02-2023 Physician Order [id number]#1.0 0TIFF [facility] Medication Consenton 023 Medication Consent [id number]#1.0 0TIFF [facility] Physician Referralon 023 Physician Referral [id number]#1. 00TIFF [facility] Ambulatory Visit Summaryon 1 Ambulatory Visit [...] Portillo PIPER, Rahul Varner Where: [facility] [place] Monday 1:00 PM EDT With: [place] Where: [facility] Behavioral Health [facility] Monday 2:40 PM EST With: Lidya Almanzar MD Where: [facility] Invalid Interpretation Code [address] [place] [address]- \.br \ Someone Will Contact You Regarding These Appointments \.br\ [facility] [place], Psychiatry, Community health services in [place]., 05/30/23 14:54:00 EDT, Anxiety [facility] Pre-Visit Planningon 023 Pre-Visit Planning - From: Yuliya ORTEZ, Kim To: Lidya Almanzar MD; Sent: 05/29/2023 13:24:19 EDT Subject: Pre-Visit Planning Due Date/Time: 05/29/2023 13:24:00 EDT Caller Name: TEA RAHMAN; Caller Number: , Tx Dr. Almanzar, *Based on your response below, can you please update the chronic problem list and address during this visit if appropriate?* During a pre-visit planning chart review, I noted the following documentation in the medical record: Current medications: Hydroxychloroquine 12/21/2022 office note-When the patient was diagnosed with lupus, she was referred to a clinical abstractor in [place]. She tried a different clinical abstractor in [place] where she stayed until that provider retired. [...] very fatigued. 03/20/2023 office note- has a clinical abstractor not working out for her wants to find a new one needs her proctofoam refilled for the hemorrhoids and also dr santana gave her hyoscamine for blow outs but refills ran out as she doesn't use all the time, can she get more recent phq9-15 recent leanne-15 urine collected and processed 03/21/2023 [facility] page 1 has major depressive disorder single episode mild and systemic lupus erythematosus 03/28/2023 office note-Patient is taking half a tablet of [place] twice daily and steroids for her fibromyalgia, lupus, and arthritis. She reports continued pain in her shoulders and upper back. She was unable to receive epidural in the sciatic nerve due to miscommunication regarding the appointment. She requests prescription of hydroxychloroquine to take as needed for flares. She is looking for a clinical abstractor. Based on your medical judgment, can you [...] feel free to contact me at extension [phone]. Thank you! Kim Dwyer, SUREKHAN, RN, CCM, CCDS, CCDS-O Invalid Interpretation Code [address] [facility] Pre-Visit Planning - From: Yuliya ORTEZ, Kim To: Yohan PIPER, Lidya Lal; Sent: 05/29/2023 13:16:19 EDT Subject: Pre-Visit Planning Due Date/Time: 05/29/2023 13:16:00 EDT Caller Name: TEA RAHMAN; Caller Number: Olga Lidia , M Tx Dr. Almanzar, *Based on your response below, [...] as the Xanax PRN. 03/21/2023 [facility] page 1 has major depressive disorder [...] feel free to contact me at extension [phone]. Thank you! Kim Dwyer, SUREKHAN, RN, CCM, CCDS, CCDS-O Invalid Interpretation Code [address] [facility] Physician Orderon 05-26-2023 Physician Order [id number]#1. 00TIFF Normal [facility] NM Myocardial Spect Rest/Str ess [...] 10.9 Stress Dose (mCi Tc99M Cardiolite): 30.0 Normal [facility] Stress EKG Tracingson 2022 Stress EKG Tracings [id number]#1. 00CD:127 [facility] Consent for Treatmenton 04-22 Consent for Treatment [id number] [id number]#1.0 0CD:127 [facility] Consent for Treatmenton 04-21 Consent for Treatment [id number]#1.0 0CD:127 Normal [facility] Consultation Noteon 05-08-20 23 Consultation Note [id number]#1.0 0CD:127 [facility] Consultation Note [id number]#1.00 CD:127 [facility] Urine Cultureon 05-04-2023 Bacteria identified Cx Nom (U) Reason for Exam Dysuria Urine 50,000 colonies/ml mixed bacterial skin contaminants 2 Days PERFORMED BY: [place] [id number] PATHOLOGIST PRINCIPAL MILITARY ANALYST KEYON SERNA M.D. Normal [facility] Comment on above: Performed By: #### C UU #### [place] [id number] [facility] Physician Orderon 04-21-2023 Physician Order [id number]#1.0 0CD:127 Normal [facility] Physician Referralon 023 Physician Referral [id number]#1. 00CD:127 Normal [facility] Family Medicine Office/Clini c Noteon 04-17-2023 [...] will follow-up with cardiology. Ordered: [facility] [place] Ambulatory Referral 2. Post-nasal drip (R09.82: Postnasal drip) ? We will have the patient try the Zyrtec again. Discussed how the Zyrtec I do not believe is actually messing with her stomach but more the mucus. Ordered: [facility] [place] Ambulatory Referral 3. 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 We will send to cardiology for further recommendations. Ordered: [facility] [place] Ambulatory Referral 4. BMI 28.0-28.9,adult (Z68.28: Body mass index [BMI] 28.0-28.9, adult) BMI education given. Ordered: Body Mass Index (BMI) documented 3008F Current tobacco non-user 1036F Depression Screening Negative 3352F [facility] [place] Ambulatory Referral Most recent diastolic blood pressure <80 mm Hg 3078F Patient screen for fall risk: no falls in last year or 1 fall with no injury in last year 1101F Systolic BP <130 mm Hg (Most Recent) 3074F 5. Overweight (E66.3: Overweight) As above. 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 [facility] Comment on above: Result Comment: Elec tronically Signed By: Yohan PIPER, Lidya Gómez.br\Date and Time Signed: 04/17/23 18:28 EDT Consultation Noteon 04-12-20 Consultation Note 104.. [id number]#1.0 0CD:127 [facility] Consultation Note [id number]. [id number]#1.0 0CD:127 [facility] Family Medicine Office/Clini c Noteon 03-29-2023 [...] Patient is taking half a tablet of [place] twice daily and steroids for her fibromyalgia, lupus, and arthritis. She reports continued pain in her shoulders and upper back. She was unable to receive epidural in the sciatic nerve due to miscommunication regarding the appointment. She requests prescription of hydroxychloroquine to take as needed for flares. She is looking for a clinical abstractor. The adult male reports the patient presented [...] well controlled with a half of a [place] a day. 3. 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 4. BMI 28.0-28.9,adult (Z68.28: Body mass index [BMI] 28.0-28.9, adult) BMI education given. 5. OA - Osteoarthritis of knee (M17.10: Unilateral primary osteoarthritis, unspecified knee) Again, patient uses the steroids to help and patient is doing well with the use of half a [place] twice a day. 6. Overweight (E66.3: Overweight) [...] with voice recognition artificial intelligence software, specifically [employer], Geof[employer] and or You[employer]. Substitutions may have occurred due to the inher (more content not included)... [facility] Comment on above: Result Comment: Elec tronically Signed By: Lidya Almanzar MD\.br\Date and Time Signed: 03/29/23 09:38 EDT\.br\Electronically Co-Signed By: Lucia Ramos\.br\Date and Time Co-Signed: 03/28/23 19:25 EDT RAD - MISCon 03-29-2023 RAD - PelotonicsC [id number]#1.0 0CD:127 [facility] Ambulatory Visit Summaryon 0 03-28-2023 Ambulatory Visit Summary AVTEA MANUEL :1945 Visit Date:03/28/2023 Ambulatory Visit Instructions Your [...] PM EDT With: Lidya Almanzar MD Where: [facility] Ambulatory Visit Summary TEA RAHMAN :1945 Visit [...] PM EDT With: Lidya Almanzar MD Where: [facility] RAD - MISCon 03-21-2023 [facility] MIS [id number]#1.0 0CD:127 Normal [facility] Ambulatory Visit Summaryon 0 03-20-2023 Ambulatory Visit Summary TEA RAHMAN :1945 Visit Date:03/20/2023 Ambulatory Visit Instructions Your Diagnosis Abdominal pain Primary fibromyalgia syndrome BMI 29.0-29.9,adult Over weight Tests Performed Urnls Dip Stick Non-Auto w/o Micrscpy POC 84857 Your Care Team Attending Physician - Lidya [...] PM EDT With: Lidya Almanzar MD Where: [facility] Family Medicine Office/Clini c Noteon 03-20-2023 Family [...] wasn't formed does have hemorrhoids has a clinical abstractor not working out for her wants to [...] ProctoFoam for Hemorrhoids - Would like another clinical abstractor. Review of Systems PHQ Score Initial Depression [...] Urnls Dip Stick Non-Auto w/o Micrscpy POC 57243 2. Primary fibromyalgia syndrome (M79.7: Fibromyalgia) - Will do a small steroid burst. - Then when patient finds a better Physician Aide we will refer Ordered: methylPREDNISolone, = 1 packet(s), Oral, As Directed, as directed on package labeling, X 6 day(s), # 21 tab(s), Refills(s) 0, Pharmacy: [facility] #[id number], 167, cm, 03/20/23 11:45:00 EDT, Height/Length Dosing, 80.9, kg, 03/20/23 11:45:00 EDT, Weight Dosing 3. Hemorrhoids (K64.9: Unspecified hemorrhoids) - Proctofoam 4. BMI 29.0-29.9,adult (Z68.29: Body mass index [BMI] 29.0-29.9, adult) - BMI education given Ordered: methylPREDNISolone, = 1 packet(s), Oral, As Directed, as directed on package labeling, X 6 day(s), # 21 tab(s), Refills(s) 0, Pharmacy: [facility] #[id number], 167, cm, 03/20/23 11:45:00 EDT, Height/Length Dosing, [...] day(s), # 21 tab(s), Refills(s) 0, Pharmacy: [facility] #[id number], 167, cm, 03/20/23 11:45:00 EDT, Height/Length Dosing, [...] elías, Rectal, TID, 10 gram, Refill(s) 0, [facility] #[id number], 167, cm, 03/20/23 11:45:00 EDT, Height/Length Dosing, [...] acetaminophen-hydrocod one (more content not included)... Normal [facility] Comment on above: Result Comment: Elec tronically Signed By: Yohan PIPER, Lidya Lal\.br\Date and Time Signed: 03/20/23 12:22 EDT Consultation Noteon 03-09-20 Consultation Note [id number]#1.0 0CD:127 Normal [facility] XR chest 2V*on 03-02-2023 XR chest 2V* [facility] [place] [address] [place] [address] XRay Report Signed Patient: Tea Rahman MR#: [id number] : 1945 Acct:[id number] Age/Sex: 77 / F ADM Date: 03/02/23 Loc: ICXD Room: Type: [facility] Attending Dr: Rashard Aguilar MD Copies to: [...] Zen Yo M.D.03/02/2023 4:11 PM Dictation Location: [place] [address] Transcribed By: [facility] 03/02/23 161 Dictated By: Zen Yo DO 03/02/23 1610 Signed By: 03/02/23 161 Normal [facility] Consultation Noteon 02-07-20 Consultation Note [id number]#1.0 0CD:127 Normal [facility] Amorphous urine sedimentOrde red By: Rashard Aguilar on 01-24-2023 Amorphous sediment LM Ql (Urine sed) See comment Negative [facility] Comment on above: Unable to obtain acc urate result due to color interference. Automated epithelial cells c ount in urine sediment (number/area)Ordered By: Rashard Aguilar on 01-24-2023 Epithelial cells Auto (Urine sed) [#/Area] 5-9 [HPF] 0-2 [facility] Automated erythrocytes count in urine sediment (number/area)Ordered By: Rashard Aguilar on 01-24-2023 RBC Auto (Urine sed) [#/Area] None seen [HPF] 0-4 [facility] Automated leukocytes count i n urine sediment (number/area)Ordered By: Rashard Aguilar on 01-24-2023 WBC Auto (Urine sed) [#/Area] 5-9 [HPF] 0-4 [facility] Automated urine specific gra vity by refractometryOrdered By: Rashard Aguilar on 01-24-2023 Specific gravity Refractometry automated (U) [Rel density] 1.015 1.001-1.030 [facility] Basophils Auto (Bld) [#/Vol] Ordered By: Rashard Aguilar on 01-24-2023 Basophils (Bld) [#/Vol] 0.0 10*3/uL 0.0-0.2 [facility] Basophils/100 WBC Auto (Bld) Ordered By: Rashard Aguilar on 01-24-2023 Basophils/100 WBC (Bld) 0.5 % . [facility] Bilirubin Auto test strip Ql (U)Ordered By: Rashard Aguilar on 01-24-2023 Bilirubin Ql (U) See comment Negative [facility] Comment on above: Unable to obtain acc urate result due to color interference. C reactive protein [Mass/vol ume] in Serum or PlasmaOrdered By: Rashard Aguilar on 01-24-2023 CRP [Mass/Vol] 0.6 mg/dL 0.0-0.5 [facility] C-Reactive Proteinon 023 C-Reactive Protein 0.6 mg/dL High 0.0-0.5 [facility] Comment on above: Result Comment: PERF ORMED BY: [place] [address] PATHOLOGIST PRINCIPAL MILITARY ANALYST KEYON SERNA M.D. Performed By: #### C BC, ADDONUAPLUS, ESR, CUU, CRP, CREAT #### [address] #### C4, C3 #### [facility] , Complement C3on 01-24-2023 Complement C3 162 mg/dL Normal 82-167 [facility] Comment on above: Result Comment: Perf ormed at: - [facility] [address] [id number] Decorating Equipment Setter: Paul Dumont PhD, Phone: [phone] Performed By: #### C BC, ADDONUAPLUS, ESR, CUU, CRP, CREAT #### [address] #### C4, C3 #### [facility] , Complement C4on 01-24-2023 Complement C4 36 mg/dL Normal 12-38 [facility] Comment on above: Result Comment: PERF ORMED BY: [place] [address] PATHOLOGIST PRINCIPAL MILITARY ANALYST KEYON SERNA M.D. Performed By: #### C BC, ADDONUAPLUS, ESR, CUU, CRP, CREAT #### [address] #### C4, C3 #### [facility] , Complete Blood Count Auto Di ffon 01-24-2023 Basophils (Bld) [#/Vol] 0.0 10*3/uL Normal 0.0-0.2 [facility] Comment on above: Performed By: #### C BC, ADDONUAPLUS, ESR, CUU, CRP, CREAT #### [place] [address] [place] #### C4, C3 #### [facility] , Basophils/100 WBC (Bld) 0.5 % Normal . [facility] Comment on above: Performed By: #### C BC, ADDONUAPLUS, ESR, CUU, CRP, CREAT #### [address] #### C4, C3 #### [facility] , Eosinophils (Bld) [#/Vol] 0.2 10*3/uL Normal 0.0-0.45 [facility] Comment on above: Performed By: #### C BC, ADDONUAPLUS, ESR, CUU, CRP, CREAT #### [place] [address] [place] #### C4, C3 #### [facility] , Eosinophils/100 WBC (Bld) 3.3 % Normal . [facility] Comment on above: Performed By: #### C BC, ADDONUAPLUS, ESR, CUU, CRP, CREAT #### [place] [address] [place] #### C4, C3 #### [facility] , Erythrocyte distribution width (RBC) [Ratio] 14.2 % Normal 11.9-15.3 [facility] Comment on above: Performed By: #### C BC, ADDONUAPLUS, ESR, CUU, CRP, CREAT #### [place] [address] [place] #### C4, C3 #### [facility] , Hematocrit (Bld) [Volume fraction] 40.7 % Normal 34.0-46.4 [facility] Comment on above: Performed By: #### C BC, ADDONUAPLUS, ESR, CUU, CRP, CREAT #### [address] #### C4, C3 #### [facility] , Hemoglobin (Bld) [Mass/Vol] 13.2 g/dL Normal 11.8-15.4 [facility] Comment on above: Performed By: #### C BC, ADDONUAPLUS, ESR, CUU, CRP, CREAT #### [address] #### C4, C3 #### [facility] , Lymphocytes (Bld) [#/Vol] 1.9 10*3/uL Normal 1.00-4.8 [facility] Comment on above: Performed By: #### C BC, ADDONUAPLUS, ESR, CUU, CRP, CREAT #### [place] [address] [place] #### C4, C3 #### [facility] , Lymphocytes/100 WBC (Bld) 30.8 % Normal . [facility] Comment on above: Performed By: #### C BC, ADDONUAPLUS, ESR, CUU, CRP, CREAT #### [place] [address] [place] #### C4, C3 #### [facility] , MCH (RBC) [Entitic mass] 29.5 pg Normal 24.7-34.3 [facility] Comment on above: Performed By: #### C BC, ADDONUAPLUS, ESR, CUU, CRP, CREAT #### [place] [address] [place] #### C4, C3 #### [facility] , MCV (RBC) [Entitic vol] 90.9 fL Normal 80-100 [facility] Comment on above: Performed By: #### C BC, ADDONUAPLUS, ESR, CUU, CRP, CREAT #### [address] #### C4, C3 #### [facility] , Mean Corpuscular HGB Conc 32.5 g/dL Normal 32.0-35.0 [facility] Comment on above: Performed By: #### C BC, ADDONUAPLUS, ESR, CUU, CRP, CREAT #### [place] [address] [place] #### C4, C3 #### [facility] , Monocytes (Bld) [#/Vol] 0.4 10*3/uL Normal 0.0-0.8 [facility] Comment on above: Performed By: #### C BC, ADDONUAPLUS, ESR, CUU, CRP, CREAT #### [address] #### C4, C3 #### [facility] , Monocytes/100 WBC (Bld) 7.1 % Normal . [facility] Comment on above: Performed By: #### C BC, ADDONUAPLUS, ESR, CUU, CRP, CREAT #### [place] [address] [place] #### C4, C3 #### [facility] , Neutrophils (Bld) [#/Vol] 3.7 10*3/uL Normal 1.8-7.7 [facility] Comment on above: Performed By: #### C BC, ADDONUAPLUS, ESR, CUU, CRP, CREAT #### [place] [address] [place] #### C4, C3 #### [facility] , Neutrophils/100 WBC (Bld) 58.3 % Normal . [facility] Comment on above: Performed By: #### C BC, ADDONUAPLUS, ESR, CUU, CRP, CREAT #### [facility] [address] [place] [address] [place] #### C4, C3 #### [facility] , NRBC% 0.1 /100{WBC} Normal 0-0.5 [facility] Comment on above: Performed By: #### C BC, ADDONUAPLUS, ESR, CUU, CRP, CREAT #### [address] #### C4, C3 #### [facility] , Platelet mean volume (Bld) [Entitic vol] 7.3 fL Normal 6.3-10.7 [facility] Comment on above: Performed By: #### C BC, ADDONUAPLUS, ESR, CUU, CRP, CREAT #### [place] [address] [place] #### C4, C3 #### [facility] , Platelets (Bld) [#/Vol] 239 10*3/uL Normal 150-450 [facility] Comment on above: Performed By: #### C BC, ADDONUAPLUS, ESR, CUU, CRP, CREAT #### [place] [address] [place] #### C4, C3 #### [facility] , RBC (Bld) [#/Vol] 4.48 10*6/uL Normal 3.60-5.00 [facility] Comment on above: Performed By: #### C BC, ADDONUAPLUS, ESR, CUU, CRP, CREAT #### [place] [address] [place] #### C4, C3 #### [facility] , WBC (Bld) [#/Vol] 6.3 10*3/uL Normal 3.8-11.6 [facility] Comment on above: Performed By: #### C BC, ADDONUAPLUS, ESR, CUU, CRP, CREAT #### [facility] [address] [place] [address] [place] #### C4, C3 #### [facility] , Creatinineon 01-24-2023 Creatinine [Mass/Vol] 0.96 mg/dL Normal 0.60-1.20 [facility] Comment on above: Performed By: #### C BC, ADDONUAPLUS, ESR, CUU, CRP, CREAT #### [address] #### C4, C3 #### [facility] , GFR/1.73 sq M.predicted MDRD (S/P/Bld) [Vol rate/Area] mL/min/{1.73_m2} Normal [facility] Comment on above: Performed By: #### C BC, ADDONUAPLUS, ESR, CUU, CRP, CREAT #### [place] [address] [place] #### C4, C3 #### [facility] , Creatinine [Mass/volume] in Serum or PlasmaOrdered By: Rashard Aguilar on 01-24-2023 Creatinine [Mass/Vol] 0.96 mg/dL 0.60-1.20 [facility] Dipstick and Microscopicon 0 01-24-2023 Appearance (U) Slightly Cloudy Critically abnormal Clear [facility] Comment on above: Order Comment: Name Collection Type:: Clean-Voided Midstream Performed By: #### C BC, ADDONUAPLUS, ESR, CUU, CRP, CREAT #### [facility] [address] [place] [address] [place] #### C4, C3 #### [facility] , Bacteria,Urine 1+ High None Seen [facility] Comment on above: Order Comment: Name Collection Type:: Clean-Voided Midstream Performed By: #### C BC, ADDONUAPLUS, ESR, CUU, CRP, CREAT #### [facility] [address] [place] [address] #### C4, C3 #### [facility] , Bilirubin,Urine Normal Negative [facility] Comment on above: Order Comment: Name Collection Type:: Clean-Voided Midstream Result Comment: Unab le to obtain accurate result due to color interference. Performed By: #### C BC, ADDONUAPLUS, ESR, CUU, CRP, CREAT #### [facility] [address] [place] [address] [place] #### C4, C3 #### [facility] , Color (U) [place] Critically abnormal Yellow [facility] Comment on above: Order Comment: Name Collection Type:: Clean-Voided Midstream Performed By: #### C BC, ADDONUAPLUS, ESR, CUU, CRP, CREAT #### [place] [address] [place] #### C4, C3 #### [facility] , Glucose Ql (U) Normal Normal [facility] Comment on above: Order Comment: Name Collection Type:: Clean-Voided Midstream Result Comment: Unab le to obtain accurate result due to color interference. Performed By: #### C BC, ADDONUAPLUS, ESR, CUU, CRP, CREAT #### [place] [address] [place] #### C4, C3 #### [facility] , Ketones Ql (U) Normal Negative [facility] Comment on above: Order Comment: Name Collection Type:: Clean-Voided Midstream Result Comment: Unab le to obtain accurate result due to color interference. Performed By: #### C BC, ADDONUAPLUS, ESR, CUU, CRP, CREAT #### [facility] [address] [place] [address] #### C4, C3 #### [facility] , Leukocyte esterase Test strip Ql (U) Normal Negative [facility] Comment on above: Order Comment: Name Collection Type:: Clean-Voided Midstream Result Comment: Unab le to obtain accurate result due to color interference. Performed By: #### C BC, ADDONUAPLUS, ESR, CUU, CRP, CREAT #### [address] #### C4, C3 #### [facility] , Nitrite,Urine Normal Negative [facility] Comment on above: Order Comment: Name Collection Type:: Clean-Voided Midstream Result Comment: Unab le to obtain accurate result due to color interference. Performed By: #### C BC, ADDONUAPLUS, ESR, CUU, CRP, CREAT #### [address] #### C4, C3 #### [facility] , Occult Blood,Urine Normal Negative [facility] Comment on above: Order Comment: Name Collection Type:: Clean-Voided Midstream Result Comment: Unab le to obtain accurate result due to color interference. Performed By: #### C BC, ADDONUAPLUS, ESR, CUU, CRP, CREAT #### [address] #### C4, C3 #### [facility] , pH,Urine Normal 5.0-9.0 [facility] Comment on above: Order Comment: Name Collection Type:: Clean-Voided Midstream Result Comment: Unab le to obtain accurate result due to color interference. Performed By: #### C BC, ADDONUAPLUS, ESR, CUU, CRP, CREAT #### [address] #### C4, C3 #### [facility] , Protein,Urine Normal Negative [facility] Comment on above: Order Comment: Name Collection Type:: Clean-Voided Midstream Result Comment: Unab le to obtain accurate result due to color interference. Performed By: #### C BC, ADDONUAPLUS, ESR, CUU, CRP, CREAT #### [facility] [address] [place] [address] #### C4, C3 #### [facility] , RBC,Urine None Seen Normal 0-4 [facility] Comment on above: Order Comment: Name Collection Type:: Clean-Voided Midstream Performed By: #### C BC, ADDONUAPLUS, ESR, CUU, CRP, CREAT #### [address] #### C4, C3 #### [facility] , Specificy Stuart,Urine 1.015 Normal 1.001-1.030 [facility] Comment on above: Order Comment: Name Collection Type:: Clean-Voided Midstream Performed By: #### C BC, ADDONUAPLUS, ESR, CUU, CRP, CREAT #### [address] #### C4, C3 #### [facility] , Squamous Epithelial Cell,Urine 5-9 High 0-2 [facility] Comment on above: Order Comment: Name Collection Type:: Clean-Voided Midstream Performed By: #### C BC, ADDONUAPLUS, ESR, CUU, CRP, CREAT #### [place] [address] [place] #### C4, C3 #### [facility] , Urobilinogen,Urine Normal Normal [facility] Comment on above: Order Comment: Name Collection Type:: Clean-Voided Midstream Result Comment: Unab le to obtain accurate result due to color interference. Performed By: #### C BC, ADDONUAPLUS, ESR, CUU, CRP, CREAT #### [place] [address] [place] #### C4, C3 #### [facility] , WBC,Urine 5-9 High 0-4 [facility] Comment on above: Order Comment: Name Collection Type:: Clean-Voided Midstream Performed By: #### C BC, ADDONUAPLUS, ESR, CUU, CRP, CREAT #### [address] #### C4, C3 #### [facility] , Yeast,Urine 3+ Critically abnormal None Seen [facility] Comment on above: Order Comment: Name Collection Type:: Clean-Voided Midstream Result Comment: PERF ORMED BY: [place] [address] PATHOLOGIST PRINCIPAL MILITARY ANALYST KEYON SERNA M.D. Performed By: #### C BC, ADDONUAPLUS, ESR, CUU, CRP, CREAT #### [address] #### C4, C3 #### [facility] , Eosinophils Auto (Bld) [#/Vo l]Ordered By: Rashard Aguilar on 01-24-2023 Eosinophils (Bld) [#/Vol] 0.2 10*3/uL 0.0-0.45 [facility] Eosinophils/100 WBC Auto (Bl d)Ordered By: Rashard Aguilar on 01-24-2023 Eosinophils/100 WBC (Bld) 3.3 % . [facility] Erythrocyte Sedimentation Ra duyen 01-24-2023 ESR (Bld) [Velocity] 38 mm/h High 0-29 [facility] Comment on above: Result Comment: PERF ORMED BY: [place] [address] PATHOLOGIST PRINCIPAL MILITARY ANALYST KEYON SERNA M.D. Performed By: #### C BC, ADDONUAPLUS, ESR, CUU, CRP, CREAT #### [address] #### C4, C3 #### [facility] , Erythrocyte distribution wid th Auto (RBC) [Ratio]Ordered By: Rashard Aguilar on 01-24-2023 Erythrocyte distribution width (RBC) [Ratio] 14.2 % 11.9-15.3 [facility] Erythrocyte sedimentation ra te by Photometric methodOrdered By: Rashard Aguilar on 01-24-2023 ESR Photometric method (Bld) [Velocity] 38 mm/hr 0-29 [facility] Hematocrit Auto (Bld) [Volum e fraction]Ordered By: Rashard Aguilar on 01-24-2023 Hematocrit (Bld) [Volume fraction] 40.7 % 34.0-46.4 [facility] Hemoglobin [Mass/volume] in BloodOrdered By: Rashard Aguilar on 01-24-2023 Hemoglobin (Bld) [Mass/Vol] 13.2 g/dL 11.8-15.4 [facility] Ketones Test strip (U) [Mass /Vol]Ordered By: Rashard Aguilar on 01-24-2023 Ketones (U) [Mass/Vol] See comment Negative [facility] Comment on above: Unable to obtain acc urate result due to color interference. Leukocytes [#/volume] correc edwige for nucleated erythrocytes in Blood by Automated counOrdered By: Rashard Aguilar on 01-24-2023 WBC corrected for nucl RBC Auto (Bld) [#/Vol] 6.3 10*3/uL 3.8-11.6 [facility] Lymphocytes Auto (Bld) [#/Vo l]Ordered By: Rashard Aguilar on 01-24-2023 Lymphocytes (Bld) [#/Vol] 1.9 10*3/uL 1.00-4.8 [facility] Lymphocytes/100 WBC Auto (Bl d)Ordered By: Rashard Aguilar on 01-24-2023 Lymphocytes/100 WBC (Bld) 30.8 % . [facility] MCH Auto (RBC) [Entitic mass ]Ordered By: Rashard Aguilar on 01-24-2023 MCH (RBC) [Entitic mass] 29.5 pg 24.7-34.3 [facility] MCHC Auto (RBC) [Mass/Vol]Or dered By: Rashard Aguilar on 01-24-2023 MCHC (RBC) [Mass/Vol] 32.5 g/dL 32.0-35.0 [facility] MCV Auto (RBC) [Entitic vol] Ordered By: Rashard Aguilar on 01-24-2023 MCV (RBC) [Entitic vol] 90.9 fL 80-100 [facility] Monocytes Auto (Bld) [#/Vol] Ordered By: Rashard Aguilar on 01-24-2023 Monocytes (Bld) [#/Vol] 0.4 10*3/uL 0.0-0.8 [facility] Monocytes/100 WBC Auto (Bld) Ordered By: Rashard Aguilar on 01-24-2023 Monocytes/100 WBC (Bld) 7.1 % . [facility] Neutrophils Auto (Bld) [#/Vo l]Ordered By: Rashard Aguilar on 01-24-2023 Neutrophils (Bld) [#/Vol] 3.7 10*3/uL 1.8-7.7 [facility] Neutrophils/100 WBC Auto (Bl d)Ordered By: Rashard Aguilar on 01-24-2023 Neutrophils/100 WBC (Bld) 58.3 % . [facility] No Panel InformationOrdered By: Rashard Aguilar on 01-24-2023 Estimated GFR (CKD-EPI) > 60.0 mL/Min [facility] Creatinine Clearance (Chem N/A [facility] Nucleated erythrocytes [Pres ence] in Blood by Automated countOrdered By: Rashard Aguilar on 01-24-2023 Nucleated RBC Auto Ql (Bld) 0.1 /100{WBC} 0-0.5 [facility] Platelet mean volume Auto (B ld) [Entitic vol]Ordered By: Rashard Aguilar on 01-24-2023 Platelet mean volume (Bld) [Entitic vol] 7.3 fL 6.3-10.7 [facility] Platelets Auto (Bld) [#/Vol] Ordered By: Rashard Aguilar on 01-24-2023 Platelets (Bld) [#/Vol] 239 10*3/uL 150-450 [facility] Protein Auto test strip (U) [Mass/Vol]Ordered By: Rashard Aguilar on 01-24-2023 Protein (U) [Mass/Vol] See comment Negative F [facility] Comment on above: Unable to obtain acc urate result due to color interference. RBC Auto (Bld) [#/Vol]Ordere d By: Rashard Aguilar on 01-24-2023 RBC (Bld) [#/Vol] 4.48 10*6/uL 3.60-5.00 [facility] Serum or plasma complement C 3 measurement (mass/volume)Ordered By: Rashard Aguilar on 01-24-2023 Complement C3 [Mass/Vol] 162 mg/dL 82-167 [facility] Comment on above: Performed at: [place] [id number] Director: Paul Dumont PhD, Phone: [phone] Serum or plasma complement C 4 measurement (mass/volume)Ordered By: Rashard Aguilar on 01-24-2023 Complement C4 [Mass/Vol] 36 mg/dL 12-38 [facility] Urine Cultureon 01-24-2023 Bacteria identified Cx Nom (U) ORGANISM: Filomena glabrata (O:CANGLA) [place] Count 20,000 PERFORMED BY: [place] [address] PATHOLOGIST PRINCIPAL MILITARY ANALYST KEYON SERNA M.D. [facility] Comment on above: Performed By: #### C BC, ADDONUAPLUS, ESR, CUU, CRP, CREAT #### [facility] [address] [place] [address] [place] #### C4, C3 #### [facility] , Urine appearanceOrdered By: Rashard Aguilar on 01-24-2023 Appearance (U) Slightly cloudy Clear [facility] Urine bacteria detection by automated methodOrdered By: Rashard Aguilar on 01-24-2023 Bacteria Auto Ql (U) 1+ None Seen [facility] Urine colorOrdered By: Arthur Aguilar on 01-24-2023 Color (U) Empire Yellow [facility] Urine culture routineOrdered By: Rashard Aguilar on 01-24-2023 Bacteria identified Cx Nom (U) Filomena glabrata [facility] Urine glucose measurement by automated test strip (mass/volume)Ordered By: Rashard Aguilar on 01-24-2023 Glucose Auto test strip (U) [Mass/Vol] See comment Normal [facility] Comment on above: Unable to obtain acc urate result due to color interference. Urine leukocyte esterase det ection by automated test stripOrdered By: Rashard Aguilar on 01-24-2023 Leukocyte esterase Auto test strip Ql (U) See comment Negative [facility] Comment on above: Unable to obtain acc urate result due to color interference. Urine nitrite detection by a utomated test stripOrdered By: Rashard Aguilar on 01-24-2023 Nitrite Auto test strip Ql (U) See comment Negative [facility] Comment on above: Unable to obtain acc urate result due to color interference. Urobilinogen Test strip (U) [Mass/Vol]Ordered By: Rashard Aguilar on 01-24-2023 Urobilinogen (U) [Mass/Vol] See comment Normal [facility] Comment on above: Unable to obtain acc urate result due to color interference. WBC Auto (Bld) [#/Vol]Ordere d By: Rashard Aguilar on 01-24-2023 WBC (Bld) [#/Vol] 6.3 10*3/uL 3.8-11.6 [facility] Yeast detection in urine sed iment by light microscopyOrdered By: Rashard Aguilar on 01-24-2023 Yeast LM Ql (Urine sed) 3+ [HPF] None Seen [facility] pH Auto test strip (U)Ordere d By: Rashard Aguilar on 01-24-2023 pH (U) See comment 5.0-9.0 [facility] Comment on above: Unable to obtain [...] with bladders stones, pt [place]rology [place] History of Present Illness Tea Rahman is a 77-year-old female here to establish care as a prior patient of Dr. Santana. She is accompanied by her today. 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 She worked in [employer] before retiring. Mrs. Rahman has a history of bladder stones and is followed by a urologist in [place]. She had a scope completed 10/21/2022 and, per patient, they stopped counting stones. She had also been followed by a urologist in [place]. When he moved his practice to [place], [place], she followed him for care. Due [...] with lupus, she was referred to a clinical abstractor in [place]. She tried a different clinical abstractor in [place] where she stayed until that provider retired. [...] Mrs. Rahman takes Xanax for anxiety and [place] for joint pain as sparingly as possible. Over the past few years, she has been taking a half a Xanax and a half a [place] every morning as well as at night. [...] fibromyalgia syndrome (M79.7: Fibromyalgia) Patient is on [place] for this. Again, discussed laws and regulations with this medication. She will comply. Will follow as needed. 5. Essential hypertension (I10: Essential (primary) hypertension) Patient is at goal at this time. Continue to monitor. 6. 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 7. Bladder stone (N21.0: Calculus in bladder) Will refer to urology for second opinion. Will see the patient back in 2 months and we will readjust the patient's medication as needed. Documentation services were performed after patient or guardian consented to allow [employer] to record this visit. DARVIN marketing specialist and provider reviewed before signing. DARVIN: [...] and depressive (more content not included)... Normal [facility] Comment on above: Result Comment: Elec tronically Signed By: Lidya Almanzar MD\.br\Date and Time Signed: 12/22/22 14:14 EDT\.br\Electronically Co-Signed By: India Aguilar\.br\Date and Time Co-Signed: 12/21/22 17:26 EDT Physician Referralon 023 Physician Referral [id number]:127 [facility] Lab Reportson 12-21-2022 Lab Reports [id number] 0CD:127 [facility] Medication Consenton 023 Medication Consent [id number] 0CD:127 [facility] Ambulatory Visit Summaryon 0 12-20-2022 Ambulatory [...] EDT With: Yohan PIPER, Lidya Lal Where: [facility] Lab Reportson 12-14-2022 Lab Reports [id number] CD:127 Normal [facility] Stone Analysison 10-25-2022 Calculi description See Note [facility] Comment on above: Result Comment: (NOT E) Specimen consists of numerous brown calculi. The total weight is 684 mg. Performed By: #### A STONE #### [facility] [address] [place] [id number] Decorating Equipment Setter: Jamel Valentine MD Composition See Note [facility] Comment on above: Result Comment: (NOT [...] composition determined by FTIR analysis. Performed By: [facility] [address] [place] [address] Insurance Claims Supervisor: Reggie Lawrence MD, PhD Performed By: #### A STONE #### [facility] [address] [place], [place] [id number] Decorating Equipment Setter: Jamel Valentine MD [place] 684 mg [facility] Comment on above: Performed By: #### A STONE #### [facility] [address] [place], [place] [id number] Decorating Equipment Setter: Jamel Valentine MD CULTURE URINEon 09-20-2022 CULTURE URINE Culture Observations : NO GROWTH. Normal [facility] Comment on above: Performed By: #### U RCX #### [facility] [address] [place] [address] [address] Gigi Guzman FREE T3on 09-20-2022 FREE T3 1.79 pg/mlL Critically low 2.18-3.98 [facility] Comment on above: Performed By: #### F T3, TSH #### [facility] [address] [address] [address] Gigi Guzman FREE T4on 09-20-2022 Free T4 [Mass/Vol] 0.97 ng/dL Normal 0.76-1.46 [facility] Comment on above: Performed By: #### F T4 #### [facility] [address] [place] [address] Dr. Gigi Guzman TSHon 09-20-2022 TSH 2.154 uIU/mL Normal 0.358-3.740 [facility] Comment on above: Performed By: #### F T3, TSH #### [facility] [address] [address] [address] Gigi Guzman CULTURE URINEon 08-17-2022 CULTURE URINE Culture Observations : LIGHT GROWTH OF MIXED GENITAL GARFIELD. NO POTENTIAL PATHOGENS SEEN. Normal [facility] Comment on above: Performed By: #### U RCX #### [facility] [address] [address] [address] Gigi Guzman Automated erythrocytes count in urine sediment (number/area)Ordered By: Rashard Aguilar on 05-17-2022 RBC Auto (Urine sed) [#/Area] 3-4 [HPF] 0-4 [facility] Automated leukocytes count i n urine sediment (number/area)Ordered By: Rashard Aguilar on 05-17-2022 WBC Auto (Urine sed) [#/Area] 10-19 [HPF] 0-4 [facility] Automated urine hyaline cast s count (number/volume)Ordered By: Rashard Aguilar on 05-17-2022 Hyaline casts Auto (U) [#/Vol] None seen [LPF] 0-1 [facility] Comment on above: --- 05/17/221731 -- -Ur Hyaline Rat Breeder previously reported as: None Seen /LPF Basophils Auto (Bld) [#/Vol] Ordered By: Rashard Aguilar on 05-17-2022 Basophils (Bld) [#/Vol] 0.1 10*3/uL 0.0-0.2 [facility] Basophils/100 WBC Auto (Bld) Ordered By: Rashard Aguilar on 05-17-2022 Basophils/100 WBC (Bld) 0.9 % . [facility] Bilirubin Test strip Ql (U)O rdered By: Rashard Aguilar on 05-17-2022 Bilirubin Ql (U) Negative Negative [facility] Blood hemoglobin measurement (mass/volume)Ordered By: Rashard Aguilar on 05-17-2022 Hemoglobin (Bld) [Mass/Vol] 13.3 g/dL 11.8-15.4 [facility] Blood leukocytes automated c ount (number/volume)Ordered By: Rashard Aguilar on 05-17-2022 WBC (Bld) [#/Vol] 5.5 10*3/uL 4.5-11.0 [facility] C reactive protein [Mass/vol ume] in Serum or PlasmaOrdered By: Rashard Aguilar on 05-17-2022 CRP [Mass/Vol] 0.9 mg/dL 0.0-1.0 [facility] Casts typing in urine sedime nt by light microscopyOrdered By: Rashard Aguilar on 05-17-2022 Casts LM Nom (Urine sed) None seen [LPF] None Seen [facility] Comment on above: --- 05/17/221731 -- -Ur Other Rat Breeder previously reported as: None Seen /LPF Color Auto (U)Ordered By: Alta Aguilar on 05-17-2022 Color (U) Yellow Yellow [facility] Creatinine and Glomerular fi ltration rate.predicted panel (S/P/Bld)Ordered By: Rashard Aguilar on 05-17-2022 Creatinine [Mass/Vol] 0.84 mg/dL 0.44-1.03 [facility] Eosinophils Auto (Bld) [#/Vo l]Ordered By: Rashard Aguilar on 05-17-2022 Eosinophils (Bld) [#/Vol] 0.3 10*3/uL 0.0-0.45 [facility] Eosinophils/100 WBC Auto (Bl d)Ordered By: Rashard Aguilar on 05-17-2022 Eosinophils/100 WBC (Bld) 4.7 % . [facility] Erythrocyte distribution wid th Auto (RBC) [Ratio]Ordered By: Rashard Aguilar on 05-17-2022 Erythrocyte distribution width (RBC) [Ratio] 14.7 % 11.9-15.3 [facility] Erythrocyte sedimentation ra te by Photometric methodOrdered By: Rashard Aguilar on 05-17-2022 ESR Photometric method (Bld) [Velocity] 47 mm/hr 0-29 [facility] Estimated glomerular filtrat ion rate (GFR) non- AmericanOrdered By: Rashard Aguilar on 05-17-2022 GFR/1.73 sq M.predicted among non-blacks MDRD (S/P/Bld) [Vol rate/Area] > 60 mL/Min [facility] Hematocrit Auto (Bld) [Volum e fraction]Ordered By: Rashard Aguilar on 05-17-2022 Hematocrit (Bld) [Volume fraction] 40.6 % 34.0-46.4 [facility] Ketones Auto test strip (U) [Mass/Vol]Ordered By: Rashard Aguilar on 05-17-2022 Ketones (U) [Mass/Vol] Negative Negative [facility] - Hematology and Cell countsOrdered By: Rashard Aguilar on 05-17-2022 Nucleated RBC/100 WBC (Bld) [Ratio] 0.1 % 0-0.5 [facility] Lymphocytes Auto (Bld) [#/Vo l]Ordered By: Rashard Aguilar on 05-17-2022 Lymphocytes (Bld) [#/Vol] 1.6 10*3/uL 1.00-4.8 [facility] Lymphocytes/100 WBC Auto (Bl d)Ordered By: Rashard Aguilar on 05-17-2022 Lymphocytes/100 WBC (Bld) 29.3 % . [facility] MCH Auto (RBC) [Entitic mass ]Ordered By: Rashard Aguilar on 05-17-2022 MCH (RBC) [Entitic mass] 30.3 pg 24.7-34.3 [facility] MCHC Auto (RBC) [Mass/Vol]Or dered By: Rashard Aguilar on 05-17-2022 MCHC (RBC) [Mass/Vol] 32.6 g/dL 32.0-35.0 [facility] MCV Auto (RBC) [Entitic vol] Ordered By: Rashard Aguilar on 05-17-2022 MCV (RBC) [Entitic vol] 93.0 fL 80-100 [facility] Monocytes Auto (Bld) [#/Vol] Ordered By: Rashard Aguilar on 05-17-2022 Monocytes (Bld) [#/Vol] 0.5 10*3/uL 0.0-0.8 [facility] Monocytes/100 WBC Auto (Bld) Ordered By: Rashard Aguilar on 05-17-2022 Monocytes/100 WBC (Bld) 8.6 % . [facility] Neutrophils Auto (Bld) [#/Vo l]Ordered By: Rashard Aguilar on 05-17-2022 Neutrophils (Bld) [#/Vol] 3.1 10*3/uL 1.8-7.7 [facility] Neutrophils/100 WBC Auto (Bl d)Ordered By: Rashard Aguilar on 05-17-2022 Neutrophils/100 WBC (Bld) 56.5 % . [facility] Nitrite Test strip Ql (U)Ord ered By: Rashrad Aguilar on 05-17-2022 Nitrite Ql (U) Negative Negative [facility] No Panel InformationOrdered By: Rashard Aguilar on 05-17-2022 Estimated GFR () > 60 mL/Min [facility] Comment on above: GFR estimated refere nce range: According to KDOQI guidelines, <60 ml/min/1.73m2 is sufficient to diagnose a patient with chronic kidney disease. Pharmacy Creatinine Clearance (Chem N/A [facility] Platelet mean volume Auto (B ld) [Entitic vol]Ordered By: Rashard Aguilar on 05-17-2022 Platelet mean volume (Bld) [Entitic vol] 7.0 fL 6.3-10.7 [facility] Platelets Auto (Bld) [#/Vol] Ordered By: Rashard Aguilar on 05-17-2022 Platelets (Bld) [#/Vol] 278 10*3/uL 150-450 [facility] Protein Auto test strip (U) [Mass/Vol]Ordered By: Rashard Aguilar on 05-17-2022 Protein (U) [Mass/Vol] Negative Negative [facility] RBC Auto (Bld) [#/Vol]Ordere d By: Rashard Aguilar on 05-17-2022 RBC (Bld) [#/Vol] 4.37 10*6/uL 3.60-5.00 [facility] Specific gravity Auto test s trip (U) [Rel density]Ordered By: Rashard Aguilar on 05-17-2022 Specific gravity (U) [Rel density] 1.009 1.001-1.030 [facility] Squamous epithelial cells de tection in urine sediment by light microscopyOrdered By: Rashard Aguilar on 05-17-2022 Epithelial cells.squamous LM Ql (Urine sed) 5-9 [HPF] 0-2 [facility] Urine bacteria detection by automated methodOrdered By: Rashard Aguilar on 05-17-2022 Bacteria Auto Ql (U) None seen None Seen [facility] Urine clarity by refractomet ry automatedOrdered By: Rashard Aguilar on 05-17-2022 Clarity Refractometry automated (U) Clear Clear [facility] Urine glucose measurement by automated test strip (mass/volume)Ordered By: Rashard Aguilar on 05-17-2022 Glucose Auto test strip (U) [Mass/Vol] Normal mg/dL Normal [facility] Urine hemoglobin detection b y automated test stripOrdered By: Rashard Aguilar on 05-17-2022 Hemoglobin Auto test strip Ql (U) Negative Negative [facility] Urine leukocyte esterase det ection by automated test stripOrdered By: Rashard Aguilar on 05-17-2022 Leukocyte esterase Auto test strip Ql (U) 2+ Negative [facility] Urobilinogen Auto test strip (U) [Mass/Vol]Ordered By: Rashard Aguilar on 05-17-2022 Urobilinogen (U) [Mass/Vol] Normal mg/dL Normal [facility] pH Auto test strip (U)Ordere d By: Rashard Aguilar on 05-17-2022 pH (U) 5.5 [pH] 5.0-9.0 [facility] CULTURE URINEon 03-17-2022 CULTURE URINE Isolate [...] Trimethoprim/Sulfameth oxazole <=20 S F Normal [facility] Comment on above: Performed By: #### U RCX #### [facility] [address] [place] [address] Dr. Gigi Guzman UA (CLEAN/CATCH) MEDICAL DIRECTOR OF HOSPICE/MICRO I F IND.on 03-14-2022 Bilirubin Ql (U) Negative Normal NEGATIVE [facility] Comment on above: Performed By: #### U ACSIND, UMICRO #### [facility] [address] [place] [address] Dr. Gigi Guzman Clarity (U) CLEAR Normal CLEAR [facility] Comment on above: Performed By: #### U ACSIND, ICRO #### [facility] [address] [place] [address] Dr. Gigi Guzman Color (U) DK. YELLOW Normal YELLOW [facility] Comment on above: Performed By: #### U ACSIND, UMICRO #### [facility] [address] [place] [address] Dr. Gigi Guzman Glucose Ql (U) Negative Normal NEGATIVE [facility] Comment on above: Performed By: #### U ACSIND, UMICRO #### [facility] [address] [place] [address] Dr. Gigi Guzman Hemoglobin Ql (U) Negative Normal NEGATIVE [facility] Comment on above: Performed By: #### U ACSIND, UMICRO #### [facility] [address] [address] [address] Gigi Guzman Ketones Ql (U) Negative Normal NEGATIVE [facility] Comment on above: Performed By: #### U ACSIND, UMICRO #### [facility] [address] [address] [address] Gigi Guzman LEUKOCYTES TRACE Abnormal NEGATIVE [facility] Comment on above: Performed By: #### U ACSIND, UMICRO #### [facility] [address] [address] [address] Gigi Guzman Nitrite Ql (U) Positive Abnormal NEGATIVE [facility] Comment on above: Performed By: #### U ACSIND, UMICRO #### [facility] [address] [place] [address] Dr. Gigi Guzman pH (U) 5.0 [pH] Normal 5-9 [facility] Comment on above: Performed By: #### U ACSIND, ICRO #### [facility] [address] [place] [address] Dr. Gigi Guzman SPEC GRAVITY 1.010 Normal 1.005-<=1.02 5 [facility] Comment on above: Performed By: #### U ACSIND, UMICRO #### [facility] [address] [place] [address] Dr. Gigi Guzman UA PROTEIN Negative Normal NEGATIVE/ TRACE [facility] Comment on above: Performed By: #### U ACSIND, UMICRO #### [facility] [address] [address] [address] Gigi Guzman UR MICRO IND INDICATED Normal [facility] Comment on above: Performed By: #### U ACSIND, UMICRO #### [facility] [address] [place] [address] Dr. Gigi Guzman Urobilinogen Qn (U) 0.2 {Maren'U}/dL Normal 0.2 - 1. 0 [facility] Comment on above: Performed By: #### U ACSKRYSTLE, UMICRO #### [facility] [address] [place] [address] Dr. Gigi Guzman URINE MICROSCOPIC ONLYon BACTERIA SMALL Abnormal NONE SEEN [facility] Comment on above: Performed By: #### U ACSKRYSTLE, UMICRO #### [facility] [address] [place] [address] Dr. Gigi Guzman Bacteria identified Cx Nom (U) INDICATED Normal [facility] Comment on above: Performed By: #### U ACSKRYSTLE, UMICRO #### [facility] [address] [place] [address] Dr. Gigi Guzman CAST NONE SEEN Normal NONE SEEN [facility] Comment on above: Performed By: #### U ACSKRYSTLE, UMICRO #### [facility] [address] [place] [address] Dr. Gigi Guzman Crystals LM Nom (Urine sed) NONE SEEN Normal NONE SEEN [facility] Comment on above: Performed By: #### U ACSKRYSTLE, UMICRO #### [facility] [address] [place] [address] Dr. Gigi Guzmna Epithelial cells LM Ql (Urine sed) FEW Abnormal NONE SEEN /RARE [facility] Comment on above: Performed By: #### U ACSKRYSTLE, UMICRO #### [facility] [address] [place] [address] Dr. Gigi Guzman MUCOUS NONE SEEN Normal NONE SEEN [facility] Comment on above: Performed By: #### U ACSKRYSTLE UMICRO #### [facility] [address] [place] [address] Dr. Gigi Guzman RBC 0-2 Normal 0-2 [facility] Comment on above: Performed By: #### U ACSKRYSTLE UMICRO #### [facility] [address] [place] [address] Dr. Gigi Guzman WBC 10-20 Abnormal NONE SEEN [facility] Comment on above: Performed By: #### U ACSKRYSTLE, UMICRO #### [facility] [address] [place] [address] Dr. Gigi Guzman CULTURE URINEon 01-25-2022 CULTURE URINE Culture Observations : LIGHT GROWTH OF MIXED GENITAL GARFIELD. NO POTENTIAL PATHOGENS SEEN. Normal [facility] Comment on above: Performed By: #### U RCX #### [facility] [address] [place], [place] [address] Dr. Gigi Guzman Urinalysis - AUTOMATEDon Appearance (U) cloudy [employer] Other Bilirubin Ql (U) Negative [employer] Other Color (U) orange [employer] Other Glucose Ql (U) Negative [employer] Other Hemoglobin Ql (U) Negative [employer] Other Ketones Ql (U) Negative [employer] Other Leukocyte esterase Test strip Ql (U) trace [employer] Other Nitrite Ql (U) Positive [employer] Other pH (U) 5.0 [pH] [employer] Other Protein Ql (U) Negative [employer] Other Specific gravity (U) [Rel density] >1.030 [employer] Other Urobilinogen (U) [Mass/Vol] 0.2 mg/dL [employer] Other Urinalysis - AUTOMATED No rt [employer] Other Urine Cultureon 12-21-2021 Urine Culture >100,000 [employer] Other ANAon 07-06-2017 KAILEY PATTERN HOMOGENEOUS AND SPECKLED Normal [facility] Comment on above: Performed By: #### 0 0121, 25120 ####[facility] [address], [facility] KAILEY SCREEN 1:160 Abnormal <1:40,1:40 [facility] Comment on above: Performed By: #### 0 0121, 75772 ####[facility] [place] [address], [facility] ANTI DNAon 07-06-2017 ANTI DNA <1:10 Normal <1:10 [facility] Comment on above: Performed By: #### 0 0121, 54557 ####[facility] [place] [address], [facility] ANTI-BETA 2 GLYCOPROTEIN 1on 07-06-2017 ANTI B2GP1 IGA 4.5 a units Normal 0.0-19.9 [facility] Comment on above: Performed By: #### 0 0121, 94929 ####[facility] [facility] [place] [address], [facility] ANTI B2GP1 IGG 0.7 g units Normal 0.0-19.9 [facility] Comment on above: Performed By: #### 0 0121, 26907 ####[facility] [place] [address], [facility] ANTI B2GP1 IGM 3.8 m units Normal 0.0-19.9 [facility] Comment on above: Performed By: #### 0 0121, 77600 ####[facility] [facility] [place] [address], [facility] ANTI-ENAon 07-06-2017 ANTI SM Negative Normal NEG,NEGATIVE ,Neg [facility] Comment on above: Performed By: #### 0 0121, 52178 ####[facility] [facility] [place] [address], [facility] ANTI SM/ANTIRNP Negative Normal NEG,NEGATIVE ,Neg [facility] Comment on above: Performed By: #### 0 0121, 65472 ####[facility] [place] [address], [facility] ANTICARDIOLIPIN ANTIBODYon 09-05-2016 CARDIOLIPIN IGA 3.4 APL Normal 0.0-21.9 [facility] Comment on above: Performed By: #### 0 0121, 31550 ####[facility] CARDIOLIPIN IGG 7.7 GPL Normal 0.0-22.9 [facility] Comment on above: Performed By: #### 0 0121, 65354 ####[facility] CARDIOLIPIN IGM 1.2 MPL Normal 0.0-10.9 [facility] Comment on above: Performed By: #### 0 0121, 61816 ####[facility] C REACTIVE PROTEINon 017 C reactive protein (CRP) 6.1 mg/L Normal 0.0-7.0 [facility] Comment on above: Performed By: #### 1 0238, 66339, 30219 ####[facility] CBC W/DIFFon 07-06-2017 Basophils Auto #/vol (Bld) 0.4 % Normal 0.0-2.0 [facility] Comment on above: Performed By: #### 5 0103, 08466 ####[facility] Eosinophils/100 leukocytes 2.9 % Normal 0.0-5.0 [facility] Comment on above: Performed By: #### 5 0103, 15157 ####[facility] Erythrocyte distribution width Auto Ratio (RBC) 15.1 % Normal 11.5-16.9 [facility] Comment on above: Performed By: #### 5 0103, 01461 ####[facility] [facility].[address] Erythrocytes (RBC) 4.47 mill/mm3 Normal 3.50-5.50 [facility] Comment on above: Performed By: #### 5 102, 09404 ####[facility] [facility].[address] Hematocrit (HCT) 40.7 % Normal 36.0-48.0 [facility] Comment on above: Performed By: #### 102, [address]121 ####[address] Hemoglobin mass conc (Bld) 13.5 g/dL Normal 12.0-15.0 [facility] Comment on above: Performed By: #### 102, 46600 ####[address] Lymphocytes/100 leukocytes 27.3 % Normal 20.0-40.0 [facility] Comment on above: Performed By: #### 102, 05343 ####[address] MCH 30.1 pg Normal 24.0-32.0 [facility] Comment on above: Performed By: #### 5 102, [address]409 ####[id number] [facility].[address] MCHC mass conc (RBC) 33.0 g/dL Normal 32.0-36.0 [facility] Comment on above: Performed By: #### 5 102, 59087 ####[address] MCV 91.1 fL Normal 80.0-100.0 [facility] Comment on above: Performed By: #### 5 102, 35958 ####[address] [place] [address], [facility] METHOD Normal RBC Morphology Normal [facility] Comment on above: Performed By: #### 5 010, 00238 ####[facility] [facility] [place] [address], [facility] MONOS 6.6 % Normal 2-8 [facility] Comment on above: Performed By: #### 5 010, 07722 ####[facility] [facility] [place] [address], [facility] Neutrophils/100 leukocytes 62.8 % Normal 50-70 [facility] Comment on above: Performed By: #### 5 0103, 39432 ####[facility] [place] [address], [facility] PLAT CNT 209 Thou/mm3 Normal 100-400 [facility] Comment on above: Performed By: #### 5 0103, 51941 ####[facility] [facility].[address] WBC (Leukocytes) 7.9 Thou/mm3 Normal 4.0-10.0 [facility] Comment on above: Performed By: #### 5 0103, 91197 ####[facility] [facility].[address] COMP METABOLIC PANELon 07-06 Alanine aminotransferase (ALT) 17 U/L Normal 7-52 [facility] Comment on above: Performed By: #### 0 0121, 69976 ####[facility] [facility].[address] Albumin 4.4 g/dL Normal 3.5-5.7 [facility] Comment on above: Performed By: #### 0 0121, 39382 ####[facility] [place] [address], [facility] ALKALINE PHOSPH 54 IU/L Normal 34-104 [facility] Comment on above: Performed By: #### 0 0121, 34240 ####[facility] [facility].[address] Aspartate aminotransferase (AST) 25 U/L Normal 13-39 [facility] Comment on above: Performed By: #### 0 0121, 64198 ####[facility] [facility].[address] Bilirubin (total) 0.4 mg/dL Normal 0.3-1.0 [facility] Comment on above: Performed By: #### 0 0121, 03756 ####[facility] Calcium 9.4 mg/dL Normal 8.6-10.3 [facility] Comment on above: Performed By: #### 0 0121, 36287 ####[facility] [facility].[address] Chloride 105 mmol/L Normal 98-107 [facility] Comment on above: Performed By: #### 0 0121, 58790 ####[facility] [facility].[address] CO2 28 mmol/L Normal 21-31 [facility] Comment on above: Performed By: #### 0 0121, 44096 ####[facility] [place] [address], [facility] Creatinine 0.88 mg/dL Normal 0.60-1.20 [facility] Comment on above: Performed By: #### 0 0121, 67853 ####[facility] [facility].[address] eGFR (black) mL/min/{1.73_m2} Normal >60 [facility] Comment on above: Result Comment: Calc ulation may not be valid for patients over 70 years Performed By: #### 0 0121, 83643 ####[facility] [facility].[address] eGFR (non-black) mL/min/{1.73_m2} Normal >60 [facility] Comment on above: Result Comment: Calc ulation may not be valid for patients over 70 years Performed By: #### 0 0121, 64821 ####[facility] [facility].[address] Glucose mass conc 90 mg/dL Normal 70-100 [facility] Comment on above: Performed By: #### 0 0121, 98077 ####[place] [id number] [facility].[address] Potassium molar conc 3.9 mmol/L Normal 3.5-5.1 [facility] Comment on above: Performed By: #### 0 0121, 03757 ####[place] [id number] [facility].[address] Protein 7.2 g/dL Normal 6.0-8.3 [facility] Comment on above: Performed By: #### 0 0121, 12201 ####[place] [id number] [facility].[address] Sodium 137 mmol/L Normal 136-145 [facility] Comment on above: Performed By: #### 0 0121, 60050 ####[place] [id number] [facility].[address] Urea nitrogen 16 mg/dL Normal 7-25 [facility] Comment on above: Performed By: #### 0 0121, 79270 ####[place] [id number] [facility].[address] COMPLEMENT 3on 07-06-2017 COMPLEMENT 3 125 mg/dL Normal 79-152 [facility] Comment on above: Performed By: #### 1 0238, 32107, 53036 ####[facility] [place] [address], [facility] COMPLEMENT 4on 07-06-2017 COMPLEMENT 4 28 mg/dL Normal 16-38 [facility] Comment on above: Performed By: #### 1 0238, 40142, 30647 ####[facility] [facility] [place] [address], [facility] CPKon 07-06-2017 Creatine kinase (CK) 55 U/L Normal 30-223 [facility] Comment on above: Performed By: #### 0 0121, 77912 ####[facility] [facility] [place] [address], [facility] CREATININE URINE RANDOMon Creatinine 87.0 mg/dL Normal [facility] Comment on above: Result Comment: Ther e are no established reference values for random urine specimens Performed By: #### 4 1802, 84072 ####[place] [id number] [facility].[address] SEDIMENTATION RATEon 017 SED RATE 22 mm/hr High 0-20 [facility] Comment on above: Performed By: #### 5 0103, 16157 ####[place] [id number] [place] [address], [facility] SJOGRENS ANTIBODIESon 2016 SS-A Negative Normal NEG,NEGATIVE ,Neg [facility] Comment on above: Performed By: #### 0 0121, 71317 ####[facility] [facility] [facility] [place] [address], [facility] SS-B Negative Normal NEG,NEGATIVE ,Neg [facility] Comment on above: Performed By: #### 0 0121, [id number] ####[facility] [place] [address], [facility] T PROT UR Rhianna 07-06-2017 U TOTAL PROTEIN 10.0 mg/dL Normal [facility] Comment on above: Result Comment: Ther e are no established reference values for random urine specimens Performed By: #### 4 1802, [id number] ####[facility] [facility] [place] [address], [facility] URINALYSISon 07-06-2017 Bilirubin (total) Negative Normal NEGATIVE [facility] Comment on above: Performed By: #### 1 0008 ####[facility] [facility] [place] [address], [facility] BLOOD Negative Normal NEGATIVE [facility] Comment on above: Performed By: #### 1 0008 ####[facility] [facility] [place] [address], [facility] EPIS MANY Abnormal FEW [facility] Comment on above: Performed By: #### 1 0008 ####[facility] [facility] [place] [address], [facility] Erythrocytes (RBC) 0-2 Abnormal 0-0 [facility] Comment on above: Performed By: #### 1 0008 ####[facility] [facility] [place] [address], [facility] Glucose mass conc Negative Normal NEGATIVE [facility] Comment on above: Performed By: #### 1 0008 ####[facility] [facility] [place] [address], [facility] KETONE Negative Normal NEGATIVE [facility] Comment on above: Performed By: #### 1 0008 ####[facility] [facility] [place] [address], [facility] LEUK GERRY TRACE Abnormal NEGATIVE [facility] Comment on above: Performed By: #### 1 0008 ####[facility] [facility] [place] [address], [place] MUCUS THREADS OCC Abnormal NONE SEEN [facility] Comment on above: Performed By: #### 1 0008 ####[facility], [place] [address] [place] [address] pH of blood 5.0 [pH] Normal 5.0-8.0 [facility] Comment on above: Performed By: #### 1 0008 ####[facility] [place] [address], [facility] Protein Negative Normal NEGATIVE [facility] Comment on above: Performed By: #### 1 0008 ####[facility] [facility].[address] SPEC GRAV 1.013 Low 1.015-1.020 [facility] Comment on above: Performed By: #### 1 0008 ####[facility] [place] [address], [facility] Urine, appearance CLEAR Normal CLEAR [facility] Comment on above: Performed By: #### 1 0008 ####[facility] [facility].[address] Urine, bacteria in sediment OCC Abnormal NONE SEEN [facility] Comment on above: Performed By: #### 1 0008 ####[facility] [place] [address], [facility] Urine, color SHAYY Abnormal YELLOW [facility] Comment on above: Performed By: #### 1 0008 ####[facility] [place] [address], [facility] Urine, nitrite presence Positive Abnormal NEGATIVE [facility] Comment on above: Performed By: #### 1 0008 ####[facility] [place] [address], [facility] WBC UA 6-10 Abnormal 0-0 [facility] Comment on above: Performed By: #### 1 0008 ####[facility] [facility].[address] Vital Signs Date Time Vital Sign Value Performing Clinician Mandy mejia 08-17-2023 13:40-0500 Body height 167.64 cm Shayy Garza Other [facility] Other 08-17-2023 13:40-0500 Body mass index (BMI) [Ratio] 26.31 kg/m2 Shayy Garza Other [facility] Other 08-17-2023 13:40-0500 Body temperature 97.9 [degF] Shayy Garza Other [facility] Other 08-17-2023 13:40-0500 Body weight 73.94 kg Shayy Garza Other [facility] Other 08-17-2023 13:40-0500 Respiratory rate 18 /min Shayy Garza Other [facility] Other 08-17-2023 13:40-0500 SaO2% (BldA) [Mass fraction] 96 % Shayy Garza Other [facility] Other 08-01-2023 09:00-0500 Body height 167.64 cm Mary Tejal Other [facility] Other 08-01-2023 09:00-0500 Body mass index (BMI) [Ratio] 26.02 kg/m2 Mary Tejal Other [facility] Other 08-01-2023 09:00-0500 Body temperature 98.1 [degF] Mary Tejal Other [facility] Other 08-01-2023 09:00-0500 Body weight 73.12 kg Mary Tejal Other [facility] Other 08-01-2023 09:00-0500 Diastolic blood pressure 97 mm[Hg] Mary Toure Other [facility] Other 08-01-2023 09:00-0500 Respiratory rate 18 /min Mary Toure Other [facility] Other 08-01-2023 09:00-0500 SaO2% (BldA) [Mass fraction] 95 % Mary Toure Other [facility] Other 08-01-2023 09:00-0500 Systolic blood pressure 166 mm[Hg] Mary Toure Other [employer] Other 06-01-2023 14:54-0400 Diastolic blood pressure 88 mm[Hg] Rahul Christofferson [facility] 06-01-2023 14:54-0400 Heart rate 78 /min Rahul Christofferson [facility] 06-01-2023 14:54-0400 SaO2% (BldA) [Mass fraction] 97 % Rahul Christofferson [facility] 06-01-2023 14:54-0400 Systolic blood pressure 138 mm[Hg] Rahul Christofferson [facility] 04-20-2023 14:33-0400 Blood Pressure Location Rahul Christofferson [facility] 04-20-2023 14:33-0400 Diastolic blood pressure 72 mm[Hg] Rahul Christofferson [facility] 04-20-2023 14:33-0400 Heart rate 76 /min Rahul Christofferson [facility] 04-20-2023 14:33-0400 SaO2% (BldA) [Mass fraction] 96 % Rahul Christofferson [facility] 04-20-2023 14:33-0400 Systolic blood pressure 128 mm[Hg] Rahul Salas [facility] 12-21-2021 13:35-0400 Body height 167.64 cm Mary Toure Other [facility] Other 12-21-2021 13:35-0400 Body mass index (BMI) [Ratio] 28.73 kg/m2 Mary Toure Other [facility] Other 12-21-2021 13:35-0400 Body temperature 97.9 [degF] Mary Toure Other [facility] Other 12-21-2021 13:35-0400 Body weight 80.74 kg Mary Toure Other [facility] Other 12-21-2021 13:35-0400 Diastolic blood pressure 66 mm[Hg] Mary Paulmond Other [facility] Other 12-21-2021 13:35-0400 Respiratory rate 16 /min Mary Toure Other [facility] Other 12-21-2021 13:35-0400 SaO2% (BldA) [Mass fraction] 97 % Mary Toure Other [facility] Other 12-21-2021 13:35-0400 Systolic blood pressure 129 mm[Hg] Mary Tejal Other [facility] Other Encounters Encounter Date Encounter Type Care Provider Facility Start: 03-28-2024 End: 03-28-2024 ambulatory SIMRAN GARCIA Not Available Start: 03-05-2024 End: 03-05-2024 ambulatory JULIUS MA [facility] Start: 02-20-2024 End: 02-20-2024 ambulatory DEBBIE Ambrocio GOLDSTEIN [facility] Start: 02-15-2024 End: 02-20-2024 Emergency department patient visit KIM Godinez [facility] Start: 02-15-2024 End: 02-19-2024 Evaluation and management of inpatient SHAIKH XOCHITL [facility] Start: 02-15-2024 End: 02-15-2024 ambulatory SHAIKH XOCHITL [facility] Start: 02-15-2024 End: 02-20-2024 Emergency department patient visit KIM Godinez [facility] Start: 02-14-2024 End: 02-14-2024 ambulatory SHAIKH XOCHITL Not Available Start: 02-08-2024 End: 02-08-2024 ambulatory JANET GARCIA [facility] Start: 01-31-2024 End: 01-31-2024 ambulatory SYDNIE WADSWORTH [facility] Start: 01-30-2024 End: 01-30-2024 ambulatory SHAIKH XOCHITL Not Available Start: 01-19-2024 End: 01-19-2024 ambulatory SERA JENSEN Not Available Start: 01-17-2024 End: 01-17-2024 ambulatory SHAIKH XOCHITL Not Available Start: 01-16-2024 End: 01-16-2024 ambulatory [facility] Pam[facility] Start: 01-13-2024 End: 01-14-2024 Emergency department patient visit YOJANA Mcmanus [facility] Start: 01-09-2024 End: 01-09-2024 ambulatory JOIE FITZGERALD Not Available Start: 12-26-2023 End: 12-26-2023 ambulatory MICHAEL G [facility] Start: 12-21-2023 End: 12-21-2023 ambulatory SHAIKH SHAND Not Available Start: 12-19-2023 End: 12-19-2023 ambulatory MICHAEL Pamela [facility] Start: 12-12-2023 End: 12-12-2023 ambulatory MICHAEL Santiago HANNAH [facility] Start: 11-13-2023 End: 11-14-2023 ambulatory XXXX NONE [facility] Start: 11-13-2023 End: 11-13-2023 Patient encounter procedure Rahul Salas [facility] Start: 11-08-2023 End: 11-08-2023 ambulatory SHAIKH XOCHITL [...] Start: 09-12-2023 End: 09-12-2023 ambulatory Rashard Aguilar Facility:[facility] Start: 09-12-2023 End: 09-12-2023 ambulatory PHYSICIAN NO [facility] Work Phone: Start: 09-12-2023 End: 09-12-2023 Patient encounter procedure PHYSICIAN NO [facility] [address] Work Phone: Start: 09-05-2023 End: 09-05-2023 ambulatory SHAIKH XOCHITL Not Available Start: 08-28-2023 End: 08-29-2023 ambulatory Gem Contreras [facility] Start: 08-28-2023 End: 08-28-2023 Patient encounter procedure Gem Contreras [facility] Start: 08-20-2023 End: 08-20-2023 ambulatory Shayy Garza [facility] Other Start: 08-20-2023 Telephone encounter Shayy Garza [facility] [address] Start: 08-17-2023 End: 08-17-2023 ambulatory Shayy Garza Facility:[facility] Start: 08-17-2023 End: 08-17-2023 Departed Referred PHYSICIAN NO [facility] [address] [place] Work Phone: Start: 08-17-2023 End: 08-17-2023 ambulatory PHYSICIAN NO [facility] Work Phone: Start: 08-17-2023 Office outpatient visit 15 minutes Shayy Garza [facility] Start: 08-17-2023 End: 08-17-2023 Patient encounter procedure PHYSICIAN NO [facility] [place] Work Phone: Start: 2023 End: 08-16-2023 ambulatory Camelia LOW [facility] Start: 08-01-2023 Office outpatient visit 15 minutes Mary Toure [facility] Start: 08-01-2023 End: 08-01-2023 ambulatory Mary Toure [facility] [employer] Other Start: 08-01-2023 End: 08-01-2023 Departed Referred PHYSICIAN NO [facility] [place] Work Phone: Start: 07-31-2023 End: 08-01-2023 ambulatory Gem Contreras Facility[facility] Start: 07-31-2023 End: 08-01-2023 Patient encounter procedure Gem Contreras [facility] Start: 07-24-2023 End: 07-24-2023 ambulatory SERA JENSEN Not Available Start: 07-14-2023 End: 07-15-2023 ambulatory Lidya Almanzar Facility:[facility] Start: 06-29-2023 ambulatory Tonio Levy Facility:[facility] Start: 06-23-2023 ambulatory Gem Contreras Facility:[facility] Start: 06-22-2023 End: 06-23-2023 ambulatory Lidya Almanzar Facility:[facility] Start: 06-13-2023 ambulatory Gem Contreras [facility] Start: 06-06-2023 End: 06-07-2023 ambulatory Gem Freeman Ben [facility] Start: 06-06-2023 End: 06-06-2023 Patient encounter procedure Gem Lydia Contreras [facility] Start: 06-01-2023 End: 06-02-2023 ambulatory Lidya Almanzar [facility] Start: 06-01-2023 End: 06-01-2023 Patient encounter procedure Rahul Salas [facility] Start: 05-31-2023 ambulatory Gem Contreras Facility:[facility] Start: 05-30-2023 End: 05-31-2023 ambulatory Lidya Almanzar Facility:[facility] Start: 05-25-2023 End: 05-26-2023 ambulatory XXXX NONE [facility] Start: 05-11-2023 End: 05-12-2023 ambulatory Rahul Salas [facility] Start: 05-11-2023 End: 05-11-2023 Patient encounter procedure Rahul Salas [facility] Start: 05-09-2023 Telephone encounter Shayy Garza [facility] [place] Start: 05-09-2023 End: 05-10-2023 ambulatory Franco SCHERER [facility] [employer] Other Start: 05-04-2023 End: 05-04-2023 ambulatory Shayy Garza Facility:[facility] Start: 04-20-2023 End: 04-21-2023 ambulatory Lidya Almanzar [facility] Start: 04-20-2023 End: 04-20-2023 Patient encounter procedure Rahul Salas [facility] Start: 04-17-2023 End: 04-18-2023 ambulatory Lidya Almanzar Facility:[facility] [place] Start: 03-28-2023 End: 03-29-2023 ambulatory Lidya Almanzar Facility:[facility] [place] Start: 03-20-2023 End: 03-21-2023 ambulatory Lidya Almanzar Facility:[facility] [place] Start: 03-02-2023 End: 03-02-2023 ambulatory Rashard Aguilar Facility:[facility] Start: 03-02-2023 End: 03-02-2023 ambulatory MD Ashutosh Santana Work Phone: [facility] Work Phone: Start: 03-02-2023 End: 03-02-2023 Patient encounter procedure MD Ashutosh Santana Work Phone: [facility] [address] Work Phone: Start: 01-24-2023 End: 01-24-2023 ambulatory Rashard Aguilar Facility:[facility] Start: 01-24-2023 End: 01-24-2023 ambulatory MD Ashutosh Santana Work Phone: [facility] Work Phone: Start: 01-24-2023 End: 01-24-2023 Patient encounter procedure MD Ashutosh Santana Work Phone: [facility] [address] Work Phone: Start: 12-20-2022 End: 12-21-2022 ambulatory Lidya Almanzar Facility:[facility] [place] Start: 10-21-2022 End: 10-22-2022 ambulatory PILI VELASCO [facility] Start: 09-20-2022 End: 09-21-[address] ASHUTOSH SANTANA Facility:[facility] Start: 08-17-2022 End: 08-18-[address] ASHUTOSH SANTANA Facility:[facility] Start: 05-17-2022 End: 05-17-2022 ambulatory MD Ashutosh Santana Work Phone: [facility] Work Phone: Start: 05-17-2022 End: 05-17-2022 Patient encounter procedure MD Ashutosh Santana Work Phone: [facility] [address] Start: 03-14-2022 End: 03-15-[address] ASHUTOSH SANTANA Facility:[facility] Start: 01-25-2022 End: 01-26-[address] ASHUTOSH SANTANA Facility:[facility] Start: 01-06-2022 End: 01-06-2022 ambulatory Mary Toure Other [facility] Other Start: 01-06-2022 Telephone encounter Mary [facility] Start: 12-21-2021 End: 12-21-2021 ambulatory Mary Toure Other [facility] Other Start: 12-21-2021 Office outpatient visit 25 minutes Mary Toure [facility] Start: 09-27-[address] ASHUTOSH SANTANA Facilit y:[facility] Start: 07-06-2017 End: 07-07-2017 Ambulatory LISET WILIAN Facility:[facility] Procedures Date Procedure Procedure Detail Performing Clinician [...] Annual Wellness (AWV) Medicare Annual Wellness (AWV) [facility] Start: 11-08-2023 End: 11-08-2023 Patient encounter procedure 11/08/2023 3:30 PM EDT Office Visit [facility] [address] [place] [id number] Shaikh Leung MD [address] [place] [id number] [facility] Start: 09-12-2023 Bacteria identified in Urine by Culture [facility] Start: 08-17-2023 Bacteria identified in Urine by Culture [facility] Start: 04-21-2023 Influenza vaccination Influenza Vaccine (#1) [facility] Start: 01-24-2023 Bacteria identified in Urine by Culture Urine Culture [facility] Start: 05-17-2022 [facility] Start: 1951 Pneumococcal Vaccine: 65+ Years (1 - PCV) Pneumococcal Vaccine: 65+ Years (1 - PCV) [facility] Bacteria identified in Urine by Culture [facility] Complement C3 [Mass/ volume] in Serum or Plasma [facility] Work Phone: Complement C3 [Mass/ volume] in Serum or Plasma [facility] Complement C4 [Mass/ volume] in Serum or Plasma [facility] Work Phone: Complement C4 [Mass/ volume] in Serum or Plasma [facility] Myeloperoxidase Ab [Units/volume] in Serum by Immunoassay [facility] Work Phone: Neutrophil cytoplasm ic Ab.classic [Titer] in Serum by Immunofluorescence [facility] Work Phone: Neutrophil cytoplasm ic Ab.perinuclear.atypical [Titer] in Serum by Immunofluorescence [facility] Work Phone: P-ANCA measurement [facility] Work Phone: Proteinase 3 Ab [Units/volume] in Serum by Immunoassay [facility] Work Phone: Immunizations Immunization Date Immunization Notes Care Provider Tonja martinez NEGATED: Highlighted row has not occurred!05-30-2023 influenza virus vaccine, unspecified formulation Rahul Salas [facility] [place] NEGATED: Highlighted row has not occurred!11-02-2022 influenza virus vaccine, unspecified formulation Rahul Salas [facility] [place] NEGATED: Highlighted row has not occurred!11-02-2022 SARS-CoV-2 mRNA (tozinameran 5y-11y) vaccine Rahul Salas [facility] Payers Date Payer Category Payer Self-pay [id number] 2022 Medicare [employer] [id number] 2022-Present [address] [place] [address] [id number] 2021 Medicaid MEDICAID [facility] [id number] 2021-Present [phone] [address] [place] [address] Medicaid [id number]. [id number] 2020 Medicare [id number] 2.16.840.1.592640.19 1959 Medicaid [id number] 2.16.840.1.630600.19 1959 Medicare [id number] 2.16.840.1.927547.19 1945 Unknown [id number] 2.16.840.1.193957.3.579.2. 593 1945 Unknown [id number] 2.16.840.1.105221.3.579.2. 593 1945 Unknown [id number] 2.16.840.1.730253.3.579.2. 593 1945 Unknown [id number] 2.16.840.1.577771.3.579.2. 593 1945 Unknown [id number] 2.16.840.1.645334.3.579.2. 593 1945 Unknown [id number] 2.16.840.1.715439.3.579.2. 175 1945 Unknown [id number] 2.16.840.1.532870.3.579.2. 727 1945 Unknown [id number] 2.16.840.1.774732.3.579.2. 727 1945 Unknown [id number] 2.16.840.1.653411.3.579.2. 727 1945 Unknown [id number] 2.16.840.1.347280.3.579.2. 727 1945 Unknown [id number] 2.16.840.1.790019.3.579.2. 727 1945 Unknown [id number] 2.16.840.1.350987.3.579.2. 727 1945 Unknown [id number] 2.16.840.1.670198.3.579.2. 727 1945 Unknown [id number] 2.16.840.1.110300.3.579.2. 727 1945 Unknown [id number] 2.16.840.1.954743.3.579.2. 727 1945 Unknown [id number] 2.16.840.1.314198.3.579.2. 727 1945 Unknown [id number] 2.16.840.1.450438.3.579.2. 727 1945 Unknown [id number] 2.16.840.1.224803.3.579.2. 727 1945 Unknown [id number] 2.16.840.1.162339.3.579.2. 727 1945 Unknown [id number] 2.16.840.1.395613.3.579.2. 72 1945 Unknown [id number] 2.16.840.1.686233.3.579.2. 72 1945 Unknown [id number] 2.16.840.1.090053.3.579.2. 72 1945 Unknown [id number] 2.16.840.1.804705.3.579.2. 72 1945 Unknown [id number] 2.16.840.1.733211.3.579.2. 1945 Unknown [id number] 2.16.840.1.891103.3.579.2. 727 1945 Unknown [id number] 2.16.840.1.344632.3.579.2. 1285 1945 Unknown [id number] 2.16.840.1.686727.3.579.2. 6 1945 Unknown [id number] 2.16.840.1.050864.3.579.2. 1285 1945 Unknown [id number] 2.16.840.1.165497.3.579.2. 128 1945 Unknown [id number] 2.16.840.1.970808.3.579.2. 1285 1945 Unknown [id number] 2.16.840.1.988326.3.579.2. 128 1945 Unknown [id number] 2.16.840.1.257133.3.579.2. 128 1945 Unknown [id number] 2.16.840.1.910585.3.579.2. 1286 1945 Unknown [id number] 2.16.840.1.133460.3.579.2. 1286 1945 Unknown [id number] 2.16.840.1.747184.3.579.2. 1286 1945 Unknown [id number] 2.16.840.1.343154.3.579.2. 1286 1945 Unknown [id number] 2.16.840.1.931486.3.579.2. 128 1945 Unknown [id number] 2.16.840.1.415892.3.579.2. 1285 1945 Unknown [id number] 2.16.840.1.199947.3.579.2. 1286 1945 Unknown [id number] 2.16.840.1.823426.3.579.2. 1286 1945 Unknown [id number] 2.16.840.1.862093.3.579.2. 6 1945 Unknown [id number] 2.16.840.1.456499.3.579.2. 1286 1945 Unknown [id number] 2.16.840.1.858517.3.579.2. 9 1945 Unknown [id number] 2.16.840.1.307006.3.579.2. 1259 1945 Unknown [id number] 2.16.840.1.577788.3.579.2. 1259 1945 Unknown [id number] 2.16.840.1.204171.3.579.2. 1259 1945 Unknown [id number] 2.16.840.1.157329.3.579.2. 1259 1945 Unknown [id number] 2.16.840.1.156470.3.579.2. 1259 1945 Unknown [id number] 2.16.840.1.335078.3.579.2. 1258 1945 Unknown [id number] 2.16.840.1.530819.3.579.2. 1259 1945 Unknown [id number] 2.16.840.1.383050.3.579.2. 1258 1945 Unknown [id number] 2.16.840.1.261192.3.579.2. 1259 1945 Unknown [id number] 2.16.840.1.196754.3.579.2. 1258 1945 Unknown [id number] 2.16.840.1.385018.3.579.2. 1258 1945 Unknown [id number] 2.16.840.1.745378.3.579.2. 125 1945 Unknown [id number] 2.16.840.1.454735.3.579.2. 1259 [facility] [id number] Medicare Medicare Nonpatient [id number] H38 [id number] Unknown [id number] 2.16.840.1.650592.3.579.2. 531 Unknown [id number] 2.16.840.1.004664.3.579.2. 531 Unknown [id number] 2.16.840.1.886456.3.579.2. 531 Unknown [id number] 2.16.840.1.156301.3.579.2. 531 Unknown [id number] 2.16.840.1.042855.3.579.2. 531 Unknown [id number] 2.16.840.1.220701.3.579.2. 531 Social History Date Type Detail Facility Unknown if ever smoked [facility] Other Start: 09-05-2023 Sex Assigned At F [facility] Start: 1945 Sex Assigned At Female F [facility] Start: 04-17-2023 End: 06-22-2023 Tobacco smoking status Never smoked tobacco (finding) [facility] Tobacco smoking status Never [facility] Start: 05-01-2023 Tobacco use and exposure Smokeless tobacco non-user [facility] Start: 09-05-2023 Alcohol intake Lifetime non-d yessica (finding) [facility] Start: 09-05-2023 History of Social function [facility] Start: 05-01-2023 Alcohol Comment caffeine intak e: 1-2 cups per day. [facility] Start: 1945 Sex Assigned At Not on file N [facility] Functional Status Date Assessment Result Facility 06-01-2023 Functional Status No [facility] 04-20-2023 Functional Status No [facility] Clinical Notes 12-21-2021 to 08-17-2023 Note [...] understanding and is agreeable to treatment plan. [facility] Other 12-12-2023 Evaluation note* Encounter Date Diagnosis [...] as needed for aches pains or fevers. [facility] Other 09-22-2023 NoteEchocardiology Procedure Exam Date/Time Accession # Ordering Echo Transthoracic 05/11/2023 11:40 EDT [id number] Portillo PIPER, Rahul Varner CPT code 80236 81215 Reason for Exam (Echo Transthoracic Complete) I25.10;CAD Coronary artery disease Report Version: 1 Study ID: [id number] Adult Echocardiogram Report Name: TEA RAHMAN Study Date: 05/11/2023, 10: 55 AM Patient Location: [facility] : 1945 (MM/DD/YYYY) Gender: Female Age: [...] Signed by: Rahul Salas MD Transcribed by: [facility] Technologist: [facility]05-03-2022 Evaluation note* Encounter Date Diagnosis [...] the ER for worsening symptoms or concerns [facility] Other Evaluation + Plan note Future Appointments Appointment Date:05/25/2023 03:15:00 PM Scheduled Provider:Rahul Salas MD Location[facility] [place] Appointment Type:Cardiology Follow Up (FT) Appointment Date:06/13/2023 01:20:00 PM Scheduled Provider:Lidya Almanzar MD Location:[facility] Future Appointments Appointment Date:06/06/2023 01:00:00 PM Scheduled Provider:[place] Location:[facility] Appointment Type:BH Therapy New Patient Appointment Date:06/22/2023 04:00:00 PM Scheduled Provider:Lidya Almanzar MD Location:[facility] Appointment Type: Open Appointment Date:06/29/2023 02:30:00 PM Scheduled Provider:Tonio Levy MD [place] Type:[facility] New Patient Appointment Date:07/14/2023 09:30:00 AM Scheduled Provider: Location:[facility] Future Appointments Appointment Date:06/13/2023 01:00:00 PM Scheduled Provider:[place] Location:[facility] Appointment Type:BH Therapy 60 Appointment Date:06/22/2023 04:00:00 PM Scheduled Provider:Lidya Almanzar MD Location:[facility] Appointment Type: Open Appointment Date:06/29/2023 02:30:00 PM Scheduled Provider:Tonio Levy MD [place] Type:[facility] New Patient Appointment Date:07/14/2023 09:30:00 AM Scheduled Provider: Location:[facility] Appointment Type:FM Medicare Wellness [facility] Behavioral Health evaluation + Plan note Future Appointments Appointment Date:08/10/2023 03:00:00 PM Scheduled Provider:Camelia LOW CNP [facility] Appointment Type:Cardiology ED Follow Up ([place]) [facility] Behavioral Health evaluation + Plan note Future Appointments Appointment Date:11/13/2023 12:15:00 PM Scheduled Provider:Rahul Salas MD [facility] Appointment Type:Cardiology Follow Up ([place]) [facility] Behavioral Health evaluation + Plan note Future Appointments Appointment Date:05/16/2024 01:00:00 PM Scheduled Provider:Rahul Salas MD [facility] App[facility]ment Type:[facility] noteNo InformationNort [employer] Other [employer] noteNo assessment information available [facility] Work Phone: [employer] note* Diagnosis Nausea- Primary Nausea alone documented [...] heart Hospitalization History see above surgical hx [employer] Other Hospital course Narrative No data available for this section [facility] No data available for this section [facility] No data available for this section [facility] Summary Purpose Family History No Family History [...] and content) DATE CREATED AUTHOR 02/13/2018 [facility] DATE CREATED AUTHOR AUTHOR'S ORGANIZ ATION 09/21/2022 [facility] DATE CREATED AUTHOR AUTHOR'S ORGANIZ ATION 08/27/2023 [facility] DATE CREATED AUTHOR AUTHOR'S ORGANIZ ATION 08/29/2023 [facility] DATE CREATED AUTHOR AUTHOR'S ORGANIZ ATION 09/29/2023 [facility] DATE CREATED AUTHOR AUTHOR'S ORGANIZ ATION 12/05/2023 [facility] DATE CREATED AUTHOR AUTHOR'S ORGANIZ ATION 02/10/2024 [facility] DATE CREATED AUTHOR AUTHOR'S ORGANIZ ATION 02/22/2024 [facility] DATE CREATED AUTHOR AUTHOR'S ORGANIZ ATION 03/09/2024 [facility] DATE CREATED AUTHOR AUTHOR'S ORGANIZ ATION 04/02/2024 [facility] EPIC REASON FOR VISIT (unrecogniz [...] September 12, 2023 End: September 12, 2023 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 [employer] [facility]. provides no warranty or guarantee of the accuracy or completeness of information in this document.
--- NOTE | 2024-04-03 04:43 | CT_ITS ---
[address] [address] Patient Name: SIMA LEY MRN: [facility]:[id number] date: 1945 Sex: F Assigned Patient Location: ER Current Patient Location: Accession/Order Number: [id number] Exam Date: 04/03/2024 05:05 Report Date: 04/03/2024 05:35 At the request of: JESSA MARKER Procedure: CT lumbar spine wo con EXAM: CT lumbar spine wo con CT lumbar spine wo con INDICATION: 78 years old; Female.fall OOB TECHNIQUE: CT of the lumbar spine.Contrast None. Sagittal and coronal images as well as axial reconstructions through the disc spaces were produced. . Ionizing radiation dose reduced via iterative reconstruction/FBP blend and body size kV/mA adjustment. COMPARISON: Images of lumbar spine performed as part of a CT the abdomen and pelvis dated 01/08/2024. FINDINGS: POSTOPERATIVE CHANGES: None ALIGNMENT AND LORDOSIS: Mild loss of normal lumbar lordosis. Grade 1 degenerative spondylolisthesis at L3-L4. L3 is positioned 1.85 mm anterior L4. VERTEBRAE: No fracture or vertebral body collapse. No bone destruction. Generalized bony demineralization is present. Transverse processes are intact. No lytic or blastic lesions. DISC LEVELS: L1-L2: Bilateral facet degeneration. No disc herniation. Central canal, neural foramina, lateral recesses are patent. L2-L3: Disc bulging and endplate osteophyte formation, asymmetrically greater on the left. Bilateral facet degeneration with vacuum changes on the right. Central canal patent. Mild left-sided foraminal stenosis. L3-L4: Facet degeneration with grade 1 degenerative spondylolisthesis. Bony overgrowth and ligamentous thickening is present. There is narrowing of the lateral diameter the canal with flattening the posterolateral aspect of the thecal sac. Neural foramina patent. L4-L5: Vacuum disc degeneration, disc bulging, endplate osteophyte formation, facet degeneration, and ligamentous thickening. There is moderate central canal stenosis with circumferential compression of the thecal sac. Mild bilateral foraminal stenosis is present. L5-S1: Facet degeneration with bony overgrowth bilaterally. No disc herniation or bulging. There is mild narrowing of the medial margin of the left neural foramen due to osteophytes arising from the left facets. Right neural foramen is patent. LOWER THORACIC DISCS: At T11-T12 and T12-L1, no disc herniation or bulging is seen. Central canal and neural foramina are patent. The study does not visualize the distal cord or conus. OTHER: Posterior paraspinal muscles and psoas muscles are intact. No drainable fluid collections. Vascular calcifications are present. Extrarenal pelvis on the right. CT/CT lumbar spine wo con IMPRESSION: 1. No acute fracture or vertebral body collapse. 2. Multilevel degenerative changes. Stenosis is worse at the L4-L5 level. Please see the detailed discussion of the individual levels in the body of this report. Electronically authenticated by: JULIUS BANSAL Date: 04/03/2024 05:35
--- NOTE | 2024-04-03 04:43 | CT_ITS ---
The [address] [address] Patient Name: SIMA LEY MRN: [facility]:[id number] date: 1945 Sex: F Assigned Patient Location: ER Current Patient Location: ED.MAIN Accession/Order Number: [id number] Exam Date: 04/03/2024 05:05 Report Date: 04/03/2024 06:12 At the request of: JESSA MONROY Procedure: CT hip LT wo con EXAM: CT hip LT wo con HISTORY: fall, left hip fx on xray COMPARISON: Left hip series dated 04/03/2024 and 02/23/2024. TECHNIQUE: Routine CT left hip without intravenous contrast. FINDINGS: There are 3 cannulated screws anchored within the left femoral head. There is a new acute impacted subcapital fracture which is traversed by the cannulated screws with greater extension of the proximal aspect of the 3 cannulated screws into the soft tissues adjacent to the proximal left femur. The fracture is mildly comminuted medially. One of the cannulated screws extends to the articular surface along the anterior superior aspect of the femoral head. It is difficult to tell whether there is disruption of the subchondral plate within this region (series 7 image 25). The left femoral head maintains a normal relationship with the left acetabulum. Image portions of the left iliac bone are otherwise intact. The left superior and inferior pubic rami are intact. There are mild degenerative changes at the symphysis which is otherwise intact. The bony structures are osteopenic. There is no muscular derangement. There are mild stranding densities within the subcutaneous tissues lateral to the left hip. Correlate with clinical findings to differentiate ecchymosis from edema and inflammation. There are atheromatous calcifications of the iliac, common femoral, femoral and profunda femoral arteries. There is a Lomax catheter with the balloon tip within the urinary bladder. CT/CT hip LT wo con IMPRESSION: There are 3 cannulated screws anchored within the left femoral head. There is a new acute impacted subcapital fracture which is traversed by the cannulated screws with greater extension of the proximal aspect of the 3 cannulated screws into the soft tissues adjacent to the proximal left femur. The fracture is mildly comminuted medially. One of the cannulated screws extends to the articular surface along the anterior superior aspect of the femoral head. It is difficult to tell whether there is disruption of the subchondral plate within this region (series 7 image 25). The left femoral head maintains a normal relationship with the left acetabulum. There are mild stranding densities within the subcutaneous tissues lateral to the left hip. Correlate with clinical findings to differentiate ecchymosis from edema and inflammation. Electronically authenticated by: TRAVIS MELO Date: 04/03/2024 06:12
[2024-04-03] MEDS: MORPHINE SULFATE 4 MG/ML VIAL IM (05:46)
[2024-04-03] MEDS: ONDANSETRON 4 MG RAPDIS TABLET SL (05:46)
[2024-04-03 05:48] LABS: Bilirubin Urine NEGATIVE (NEGATIVE); Blood Urine MODERATE (NEGATIVE); Clarity Urine CLEAR (CLEAR); Color Urine YELLOW (YELLOW); Glucose Urine UA NEGATIVE (NEGATIVE); Ketones Urine NEGATIVE (NEGATIVE); Leukocyte Esterase Urine LARGE (NEGATIVE); Nitrite Urine NEGATIVE (NEGATIVE); Protein Urine 30 mg/dL (NEG/TRACE); Specific Gravity Urine >=1.030 (1.005-1.025)
[2024-04-03 05:55] LABS: WBC Urine >100 #/HPF (NONE SEEN)
[2024-04-03 05:57] LABS: Bacteria Urine TRACE #/HPF (NONE SEEN); Cast Seen? NONE SEEN #/LPF (NONE SEEN); Crystals Seen? None Seen #/HPF (None Seen); Mucus Urine NONE SEEN (NONE SEEN); Squamous Epithelial Cell Urine FEW #/LPF (NONE/RARE); Urine Culture Indicated YES
[2024-04-03] MEDS: CEFTRIAXONE 1,000 MG, LIDOCAINE HCL/PF 2.1 ML IM (07:13)
[2024-04-03 07:23] VITALS: BP 153/84
[2024-04-03 07:25] VITALS: O2SAT 94
[2024-04-03] MEDS: LORAZEPAM 2 MG/ML VIAL 1 MG IM (07:39)
== END 2024-04-03 11:24 | disposition home or self-care (01) ==
PROVIDERS: Emergency Provider Emergency Medicine; PCP Internal Medicine
DX: S72.002A Fracture of unspecified part of neck of left femur, initial encounter for closed fracture (principal); N39.0 Urinary tract infection, site not specified; W06.XXXA Fall from bed, initial encounter; M48.061 Spinal stenosis, lumbar region without neurogenic claudication; F03.90 Unspecified dementia, unspecified severity, without behavioral disturbance, psychotic disturbance, mood disturbance, and anxiety
CPT/HCPCS: 70450; 72125; 72131; 73502; 73700; 81001; 87086; 96372; 99285; J0696; J2060; J2270; Q0162

== ENCOUNTER 2024-04-03 17:27 | Emergency (ER) | payer MEDICARE, MEDICAID, SELFPAY ==
[2024-04-03 17:31] VITALS: BP 169/96; PULSE 96; TEMP 36.9; O2SAT 98; BMI 22.6
--- OUTSIDE RECORDS SUMMARY | 2024-04-03 17:42 | XMS_ITS | CCD ---
Author Organization [facility] Inform ion Partnership [facility] Care Team Providers Care [employer] Setter Name Role Phone WILIAN, LISET Unavailable Unavailable [...] Toure Attending Provider ABIGAIL Garza Attending Provider [phone] PILI VELASCO Referring Unavailable SANTANA, ASHUTOSH E [...] FAMILY, PHYSICIAN Primary Care Unavailable Xochitl PIPER, [facility] Primary Care Provider [phone] SHAIKH LEUNG Primary Care Physician [phone] Gem Contreras Attending Unavailable Gem Contreras Attending [...] LIDYA E Primary Care Unavailable HANNAHMICHAEL BERNARD G Attending Unavailable ROSS, LIDYA E Referring Unavailable ROSS, LIDYA E Primary Care Unavailable SYDNIE WADSWORTH I Attending Unavailable ROSS, LIDYA E Referring Unavailable ROSS, LIDYA E Primary Care Unavailable JANET GARCIA Attending Unavailable ROSS, LIDYA E Referring Unavailable FAWWAD, DRAKE Primary Care Unavailable GOLDSTEINDEBBIE Referring Unavailable FAWWAD, [facility] Primary Care Unavailable ROSS, LIDYA E Primary Care Unavailable YOJANA ROLLINS Attending Unavailable YOJANA ROLLINS Attending Unavailable YOJANA ROLLINS Referring Unavailable ROSS, LIDYA E Primary Care Unavailable MICHAEL YOUNG Attending Unavailable MICHAEL YOUNG Referring Unavailable ROSS, LIDYA E Primary Care Unavailable FAWWAD, DRAKE Referring Unavailable FAWWAD, [facility] Primary Care Unavailable FAWWAD, [facility] Primary Care Unavailable GINI CHOW Attending UnavailJAZIEL Banuelos Admitting Unavailab CHELE Hernandes Consulting Unavailable CASSIE DIEHL Consulting Unavailable KIM BEAUCHAMP Referring Unavailable FAWVTD, DRAKE Primary Care Unavailable KIM BEAUCHAMP Attending Unavailable KIM BEAUCHAMP Attending Unavailable KIM BEAUCHAMP Referring Unavailable FAWWAD, DRAKE Primary Care Unavailable KIM BEAUCHAMP Attending Unavailable NITO KIM Herbert Referring Unavailable FAWWAD, DRAKE Primary Care Unavailable KIM BEAUCHAMP Attending Unavailable NITO KIM D Referring Unavailable FAWWAD, [facility] Primary Care Unavailable JULIUS MA Referring Unavailable [...] Allergy 12-12-19 12 AOF, throat swelling, unknown [facility] Repository (10 sources) Ciprofloxacin Drug Allergy 05-15-20 20 rash, Unknown [facility] Other (1 source) Levamisole Drug Allergy [facility] Repository (8 sources) atorvastatin; 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: [atorvastatin] Drug Allergy unknown [facility] (12 sources) Solifenacin; 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: [solifenacin] Drug Allergy 04-04-20 22 Unknown [facility] (1 source) Ciprofloxacin Drug Allergy 08-17-20 [facility] Repository (4 sources) Prochlorperazine; 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: [PROCHLORPERAZINE] Drug Allergy 01-04-20 17 [facility] Repository (1 source) atorvastatin Drug Allergy 08-24-19 Other [facility] Healthcare (4 sources) busPIRone; 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: [BUSPIRONE] Drug Allergy 11-17-19 22 Unknown [facility] Healthcare (4 sources) Nitrofurantoin; 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: [NITROFURANTOIN MACROCRYSTAL] Drug Allergy 01-04-20 17 [facility] Healthcare (1 source) Nitrofurantoin Drug Allergy 10-17-19 17 [facility] Healthcare (1 source) Prochlorperazine Drug Allergy 09-29-19 07 Anaphylaxis, GI intolerance, Other, Swelling, Unknown [facility] (3 sources) Ciprofloxacin; 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: [CIPROFLOXACIN HCL] [...] tab(s), Oral, q6hr, 90 tab(s), Refill(s) 0, [facility] #[id number], 167, cm, 06/22/23 15:56:00 EDT, Height/Length Dosing, 75.7, kg, 06/22/23 15:56:00 EDT, Weight Dosing Start Date: 06/22/23 Status: Ordered Start: 05-30-2023 acetaminophen- hydrocodone 325 mg-5 mg oral tablet 1 tab(s), Oral, q6hr, 90 tab(s), Refill(s) 0, [facility] #[id number], 167, cm, 05/30/23 14:35:00 EDT, Height/Length Dosing, 77.1, kg, 05/30/23 14:35:00 EDT, Weight Dosing Start Date: 05/30/23 Status: Ordered Start: 03-10-2023 acetaminophen- hydrocodone 325 mg-5 mg oral tablet 1 tab(s), Oral, q6hr, 90 tab(s), Refill(s) 0, [facility] #[id number], 167, cm, 12/20/22 16:33:00 EDT, Height/Length Dosing, 82, kg, 12/20/22 16:33:00 EDT, Weight Dosing Start Date: 03/10/23 Status: Ordered take 1 tablet by theo th in the morning, then take 1 tablet by mouth in the evening, then take 1 tablet by mouth at bedtime HYDROcodone-acetaminophen (Upperglade) 5-325 MG tablet Take 1 tablet by [...] anxiety, # 10 tab(s), Refills(s) 0, Pharmacy: [facility] #[id number], 167, cm, 05/25/23 15:36:00 EDT, Height/Length Dosing, 76.6, kg, 05/25/23 15:36:00 EDT, Weight Dosing Start Date: 05/29/23 Status: Ordered Start: 04-25-2023 take 1 tablet by theo three times daily as needed for anxiety alprazolam 0.5 mg Tab 0.5 mg = 1 tab(s), Oral, TID, PRN for anxiety, # 30 tab(s), Refills(s) 0, Pharmacy: [facility] #[id number], 167, cm, 04/20/23 14:55:00 EDT, Height/Length Dosing, 78.6, kg, 04/20/23 14:55:00 EDT, Weight Dosing Start Date: 04/25/23 Status: Ordered Start: 03-28-2023 take 1 tablet by [facility] three times daily as needed for anxiety alprazolam 0.5 mg Tab 0.5 mg = 1 tab(s), Oral, TID, PRN for anxiety, # 30 tab(s), Refills(s) 0, Pharmacy: [facility] #[id number], 167, cm, 03/28/23 13:02:00 EDT, Height/Length Dosing, [...] BID, # 60 tab(s), Refills(s) 3, Pharmacy: [facility] #[id number], 170, cm, 08/15/23 14:27:00 EST, Height/Length Dosing, [...] elías, Rectal, TID, 10 gram, Refill(s) 0, [id number], 167, cm, 03/20/23 11:45:00 EDT, Height/Length Dosing, [...] QID, # 60 tab(s), Refills(s) 1, Pharmacy: [facility] #[id number], 167, cm, 06/01/23 14:55:00 EDT, Height/Length Dosing, [...] qAM, # 30 tab(s), Refills(s) 6, Pharmacy: [facility] #[id number], 167, cm, 05/25/23 15:36:00 EDT, Height/Length Dosing, 76.6, kg, 05/25/23 15:36:00 EDT, Weight Dosing Start Date: 05/26/23 Status: Ordered levothyroxine sodium 0.1 mg oral tablet (17 sources) l-Thyroxine Start: 11-30-2022 take 1 tablet by mouth once daily levothyroxine 100 mcg (0.1 mg) Tab 100 mcg = 1 tab(s), Oral, Daily, # 90 tab(s), Refills(s) 3, Pharmacy: [facility] #[id number], 167.4, cm, 11/02/22 15:26:00 EDT, Height/Length Dosing, [...] Daily, # 30 tab(s), Refills(s) 3, [id number], 170, cm, 08/15/23 14:27:00 EST, Height/Length Dosing, [...] day(s), # 21 tab(s), Refills(s) 0, [id number], 167, cm, 04/20/23 14:55:00 EDT, Height/Length Dosing, [...] q8hr, # 10 tab(s), Refills(s) 1, Pharmacy: [facility] #[id number], 167, cm, 06/01/23 14:55:00 EDT, Height/Length Dosing, [...] Coronary arteriosclerosis; 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: [Atherosclerotic heart disease of [place] coronary artery without angina pectoris] Onset: 4 [...] current use of opiate analgesic drug; 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 CBC AND AUTO DIFFon 02-19-20 24 ABSOLUTE BASOPHIL 0.0 X10E9/L Normal 0.0-0.2 [facility] Comment on above: Performed By: #### U A #### [facility] ([id number]) [address], [address] [place] [address] ABSOLUTE NEUTROPHIL 4.3 X10E9/L Normal 1.5-6.6 [facility] Comment on above: Performed By: #### U A #### [facility] ([id number]) [address], [address] [place] [address] Basophils/100 WBC (Bld) 0.7 % Normal [facility] Comment on above: Performed By: #### U A #### [facility] ([id number]) [address], [address] [place] [address] Eosinophils (Bld) [#/Vol] 0.4 10*3/uL Normal 0.0-0.4 [facility] Comment on above: Performed By: #### U A #### [facility] ([id number]) [address], [address] [place] [address] Eosinophils/100 WBC (Bld) 6.5 % Normal [facility] Comment on above: Performed By: #### U A #### [facility] ([id number]) [address], [address] [place] [address] Erythrocyte distribution width (RBC) [Ratio] 15.9 % High 11.5-15.0 [facility] Comment on above: Performed By: #### U A #### [facility] ([id number]) [address] [address] [place] [address] Hematocrit (Bld) [Volume fraction] 29.6 % Low 35-47 [facility] Comment on above: Performed By: #### U A #### [facility] ([id number]) [address] [address] [place] [address] Hemoglobin (Bld) [Mass/Vol] 9.9 g/dL Low 11.7-15.5 [facility] Comment on above: Performed By: #### U A #### [facility] ([id number]) [address] [address] [place] [address] Lymphocytes (Bld) [#/Vol] 1.3 10*3/uL Normal 1.0-3.5 [facility] Comment on above: Performed By: #### U A #### [facility] ([id number]) [address] [address] [place] [address] Lymphocytes/100 WBC (Bld) 19.6 % Normal [facility] Comment on above: Performed By: #### U A #### [facility] ([id number]) [address] [address] [place] [address] MCH (RBC) [Entitic mass] 31.3 pg Normal 27-34 [facility] Comment on above: Performed By: #### U A #### [facility] ([id number]) [address], [address] [place] [address] MCHC (RBC) [Mass/Vol] 33.5 g/dL Normal 32-36 [facility] Comment on above: Performed By: #### U A #### [facility] ([id number]) [address], [address] [place] [address] MCV (RBC) [Entitic vol] 94 fL Normal 80-100 [facility] Comment on above: Performed By: #### U A #### [facility] ([id number]) [address], [address] [place] [address] Monocytes (Bld) [#/Vol] 0.7 10*3/uL Normal 0-0.9 [facility] Comment on above: Performed By: #### U A #### [facility] ([id number]) [address], [address] [place] [address] Monocytes/100 WBC (Bld) 10.5 % Normal [facility] Comment on above: Performed By: #### U A #### [facility] ([id number]) [address], [address] [place] [address] Neutrophils/100 WBC (Bld) 62.7 % Normal [facility] Comment on above: Performed By: #### U A #### [facility] ([id number]) [address], [address] [place] [address] Platelet mean volume (Bld) [Entitic vol] 7.7 fL Normal 7-12 [facility] Comment on above: Performed By: #### U A #### [facility] ([id number]) [address], [address] [place] [address] Platelets (Bld) [#/Vol] 216 10*3/uL Normal 150-450 [facility] Comment on above: Performed By: #### U A #### [facility] ([id number]) [address] [facility] [place] [address] RBC COUNT 3.16 X10E12/L Low 3.80-5.20 [facility] Comment on above: Performed By: #### U A #### [facility] ([id number]) [address] [facility] [place] [address] WBC (Bld) [#/Vol] 6.8 10*3/uL Normal 4.0-11.0 [facility] Comment on above: Performed By: #### U A #### [facility] ([id number]) [address] [facility], [address] [place] [address] FERRITINon 02-19-2024 Ferritin [Mass/Vol] 169 ng/mL Normal 11-307 [facility] Comment on above: Performed By: #### [place] OLIVEIRA CMP, 65578-4 #### [facility] ([id number]) [address] [place] [address] IRON PROFILEon 02-19-2024 Iron [Mass/Vol] 16 ug/dL Low 50-170 [facility] Comment on above: Performed By: #### [place] OLIVEIRA, CMP, 37033-7 #### [facility] ([id number]) [address] [place] [address] IRON BINDING 220 ug/dL Low 250-425 [facility] Comment on above: Performed By: #### [place] OLIVEIRA, CMP, 74991-1 #### [facility] ([id number]) [address] [place] [address] IRON SATURATION 7 % SATURATION Low 15-50 [facility] Comment on above: Performed By: #### [place] OLIVEIRA, CMP, 45660-9 #### [facility] ([id number]) [address] [facility], [place] [address] MAGNESIUMon 02-19-2024 Magnesium [Mass/Vol] 1.8 mg/dL Normal 1.8-2.6 [facility] Comment on above: Performed By: #### C BCA, CMP, 87914-7 #### [facility] ([id number]) [address] [place] [address] AMMONIAon 02-18-2024 Ammonia (P) [Moles/Vol] 10 umol/L Low 11-35 [facility] Comment on above: Performed By: #### U A #### [facility] ([id number]) [address] [place] [address], [address] [address] BLOOD CULTUREon 02-18-2024 Bacteria identified Aer cx Nom (Bld) CULTURE RESULTS NO GROWTH [address] [facility] CBC AND AUTO DIFFon 02-18-20 24 ABSOLUTE BASOPHIL 0.0 X10E9/L Normal 0.0-0.2 [facility] Comment on above: Performed By: #### T SHR #### [facility] ([id number]) [address] [place] [address], [address] [address] ABSOLUTE NEUTROPHIL 6.1 X10E9/L Normal 1.5-6.6 [facility] Comment on above: Performed By: #### T SHR #### [facility] ([id number]) [address] [place] [address], [facility] [address] [place] [address] Basophils/100 WBC (Bld) 0.4 % Normal [facility] Comment on above: Performed By: #### T SHR #### [facility] ([id number]) [address] [place] [address] Eosinophils (Bld) [#/Vol] 0.2 10*3/uL Normal 0.0-0.4 [facility] Comment on above: Performed By: #### T SHR #### [facility] ([id number]) [address], [address] [place] [address] Eosinophils/100 WBC (Bld) 2.9 % Normal [facility] Comment on above: Performed By: #### T SHR #### [facility] ([id number]) [address] [place] [address] Erythrocyte distribution width (RBC) [Ratio] 15.6 % High 11.5-15.0 [facility] Comment on above: Performed By: #### T SHR #### [facility] ([id number]) [address] [place] [address] Hematocrit (Bld) [Volume fraction] 29.3 % Low 35-47 [facility] Comment on above: Performed By: #### T SHR #### [facility] ([id number]) [address] [place] [address] Hemoglobin (Bld) [Mass/Vol] 9.8 g/dL Low 11.7-15.5 [facility] Comment on above: Performed By: #### T SHR #### [facility] ([id number]) [address] [place] [address] Lymphocytes (Bld) [#/Vol] 1.2 10*3/uL Normal 1.0-3.5 [facility] Comment on above: Performed By: #### T SHR #### [facility] ([id number]) [address], [address] [place] [address] Lymphocytes/100 WBC (Bld) 14.3 % Normal [facility] Comment on above: Performed By: #### T SHR #### [facility] ([id number]) [address], [address] [place] [address] MCH (RBC) [Entitic mass] 31.5 pg Normal 27-34 [facility] Comment on above: Performed By: #### T SHR #### [facility] ([id number]) [address] [place] [address] MCHC (RBC) [Mass/Vol] 33.5 g/dL Normal 32-36 [facility] Comment on above: Performed By: #### T SHR #### [facility] ([id number]) [address] [place] [address] MCV (RBC) [Entitic vol] 94 fL Normal 80-100 [facility] Comment on above: Performed By: #### T SHR #### [facility] ([id number]) [address], [address] [place] [address] Monocytes (Bld) [#/Vol] 0.8 10*3/uL Normal 0-0.9 [facility] Comment on above: Performed By: #### T SHR #### [facility] ([id number]) [address] [place] [address] Monocytes/100 WBC (Bld) 9.4 % Normal [facility] Comment on above: Performed By: #### T SHR #### [facility] ([id number]) [address], [address] [place] [address] Neutrophils/100 WBC (Bld) 73.0 % Normal [facility] Comment on above: Performed By: #### T SHR #### [facility] ([id number]) [address] [place] [address] Platelet mean volume (Bld) [Entitic vol] 7.8 fL Normal 7-12 [facility] Comment on above: Performed By: #### T SHR #### [facility] ([id number]) [address] [place] [address] Platelets (Bld) [#/Vol] 182 10*3/uL Normal 150-450 [facility] Comment on above: Performed By: #### T SHR #### [facility] ([id number]) [address], [address] [place] [address] RBC COUNT 3.12 X10E12/L Low 3.80-5.20 [facility] Comment on above: Performed By: #### T SHR #### [facility] ([id number]) [address], [address] [place] [address] WBC (Bld) [#/Vol] 8.3 10*3/uL Normal 4.0-11.0 [facility] Comment on above: Performed By: #### T SHR #### [facility] ([id number]) [address], [address] [place] [address] COMPREHENSIVE METABOLIC PANE Ricardo 02-18-2024 Albumin [Mass/Vol] 2.9 g/dL Low 3.2-5.3 [facility] Comment on above: Performed By: #### T SHR #### [facility] ([id number]) [address], [address] [place] [address] ALP [Catalytic activity/Vol] 63 U/L Normal 39-130 [facility] Comment on above: Performed By: #### T SHR #### [facility] ([id number]) [address], [address] [place] [address] ALT [Catalytic activity/Vol] 24 U/L Normal 0-31 [facility] Comment on above: Performed By: #### T SHR #### [facility] ([id number]) [address] [place] [address] Anion gap [Moles/Vol] 7 mmol/L Normal 5-15 [facility] Comment on above: Performed By: #### T SHR #### [facility] ([id number]) [address] [place] [address] AST [Catalytic activity/Vol] 31 U/L Normal 0-41 [facility] Comment on above: Performed By: #### T SHR #### [facility] ([id number]) [address] [address] [place] [address] Bilirubin [Mass/Vol] 0.7 mg/dL Normal 0.3-1.2 [facility] Comment on above: Performed By: #### T SHR #### [facility] ([id number]) [address] [address] [place] [address] Calcium [Mass/Vol] 7.8 mg/dL Low 8.5-10.5 [facility] Comment on above: Performed By: #### T SHR #### [facility] ([id number]) [address] [address] [place] [address] Chloride [Moles/Vol] 104 mmol/L Normal 98-109 [facility] Comment on above: Performed By: #### T SHR #### [facility] ([id number]) [address] [address] [place] [address] CO2 [Moles/Vol] 24 mmol/L Normal 22-32 [facility] Comment on above: Performed By: #### T SHR #### [facility] ([id number]) [address] [address] [place] [address] Creatinine [Mass/Vol] 0.83 mg/dL Normal 0.40-1.00 [facility] Comment on above: Result Comment: METH OD TRACEABLE TO IDMS STANDARD Performed By: #### T SHR #### [facility] ([id number]) [address] [address] [place] [address] GFR/1.73 sq M.predicted among non-blacks MDRD (S/P/Bld) [Vol rate/Area] 72 mL/min/{1.73_m2} Normal >59 [facility] Comment on above: Result Comment: Reported eGFR is based on the CKD-EPI 2021 equation that does not use a race coefficient. Performed By: #### T SHR #### [facility] ([id number]) [address] [place] [address] Glucose [Mass/Vol] 100 mg/dL High 65-99 [facility] Comment on above: Performed By: #### T SHR #### [facility] ([id number]) [address] [address] [place] [address] Potassium [Moles/Vol] 3.5 mmol/L Normal 3.5-5.0 [facility] Comment on above: Performed By: #### T SHR #### [facility] ([id number]) [address] [place] [address] Protein [Mass/Vol] 5.3 g/dL Low 6.0-8.0 [facility] Comment on above: Performed By: #### T SHR #### [facility] ([id number]) [address] [place] [address] Sodium [Moles/Vol] 135 mmol/L Normal 134-146 [facility] Comment on above: Performed By: #### T SHR #### [facility] ([id number]) [address] [place] [address] Urea nitrogen [Mass/Vol] 18 mg/dL Normal 5-27 [facility] Comment on above: Performed By: #### T SHR #### [facility] ([id number]) [address] [place] [address] CT BRAIN WO CONTon 4 CT BRAIN [...] Freedman MD on 02/18/2024 2:[address] [facility] Folate [Mass/Vol]on 02-18-20 24 FOLIC ACID 21.9 ng/mL Normal >5.8 [facility] Comment on above: Result Comment: NEW REFERENCE RANGE Performed By: #### U A #### [facility] ([id number]) [address] [place] [address] Lactate (P marcus) [Moles/Vol]o n 02-18-2024 LACTATE W/REFLEX 1.3 mmol/L Normal 0.4-2.0 [facility] Comment on above: Result Comment: Result did not trigger repeat Lactate, re-order if needed. Performed By: #### U A #### [facility] ([id number]) [address] [place] [address] MAGNESIUMon 02-18-2024 Magnesium [Mass/Vol] 2.0 mg/dL Normal 1.8-2.6 [facility] Comment on above: Performed By: #### T SHR #### [facility] ([id number]) [address] [place] [address] Troponin I.cardiac High sens itivity method [Mass/Vol]on 02-18-2024 1 HOUR TROP I, HIGH SENSITIVITY 66 ng/L High <16 [facility] Comment on above: Result Comment: Elevations of hs-Troponin may be due to causes other than myocardial ischemia. Recommend serial hs-Troponin testing be performed. For the initial evaluation and management of chest pain patients, refer to the algorithms linked below. Emergency Patient: [email or web address] Inpatient: [email or web address] Performed By: #### U A #### [facility] ([id number]) [address], [address] [place] [address] TROPONIN I, HIGH SENSITIVITY 70 ng/L High <16 [facility] Comment on above: Result Comment: Elevations of hs-Troponin may be due to causes other than myocardial ischemia. Recommend serial hs-Troponin testing be performed. For the initial evaluation and management of chest pain patients, refer to the algorithms linked below. Emergency Patient: [email or web address] Inpatient: [email or web address] Performed By: #### U A #### [facility] ([id number]) [address], [address] [place] [address] URINALYSISon 02-18-2024 Bilirubin Ql (U) Negative Normal NEG [facility] Comment on above: Performed By: #### U A #### [facility] ([id number]) [address], [address] [place] [address] BLOOD/HGB MODERATE Abnormal NEG [facility] Comment on above: Performed By: #### U A #### [facility] ([id number]) [address], [address] [place] [address] Color (U) YELLOW Normal YELLOW [facility] Comment on above: Performed By: #### U A #### [facility] ([id number]) [address], [address] [place] [address] Glucose Ql (U) Negative Normal NEG [facility] Comment on above: Performed By: #### U A #### [facility] ([id number]) [address], [address] [place] [address] Ketones Ql (U) Trace Abnormal NEG [facility] Comment on above: Performed By: #### U A #### [facility] ([id number]) [address], [address] [place] [address] Leukocyte esterase Test strip Ql (U) MODERATE Abnormal NEG [facility] Comment on above: Performed By: #### U A #### [facility] ([id number]) [address], [address] [place] [address] Nitrite Ql (U) Negative Normal NEG [facility] Comment on above: Performed By: #### U A #### [facility] ([id number]) [address], [address] [place] [address] pH (U) 6.0 [pH] Normal 5.0-8.5 [facility] Comment on above: Performed By: #### U A #### [facility] ([id number]) [address], [address] [place] [address] Protein Ql (U) 30 mg/dL Abnormal NEG [facility] Comment on above: Performed By: #### U A #### [facility] ([id number]) [address], [address] [place] [address] R.B.CELLS 10 /hpf High 0-5 [facility] Comment on above: Performed By: #### U A #### [facility] ([id number]) [address], [address] [place] [address] Specific gravity (U) [Rel density] 1.020 Normal 1.003-1.035 [facility] Comment on above: Performed By: #### U A #### [facility] ([id number]) [address], [address] [place] [address] SQUAMOUS EPITHELIUM 40 /hpf High 0-5 [facility] Comment on above: Performed By: #### U A #### [facility] ([id number]) [address], [address] [place] [address] TRANSITIONAL EPITH 2 /hpf High 0 [facility] Comment on above: Performed By: #### U A #### [facility] ([id number]) [address] [address] TURBIDITY CLOUDY Abnormal CLEAR [facility] Comment on above: Performed By: #### U A #### [facility] ([id number]) [address], [address] [place] [address] Urinalysis dipstick W Reflex Microscopic panel (U) URINE RECEIVED WITHOUT PRESERVATIVE-DELAYS IN TRANSPORT MAY AFFECT RESULTS.INTERPRET WITH CAUTION AND CLINICAL CORRELATION IS RECOMMENDED. Normal [facility] Comment on above: Performed By: #### U A #### [facility] ([id number]) [address] [address] Urobilinogen Qn (U) 0.2 {Maren'U}/dL Normal <1.1 [facility] Comment on above: Performed By: #### U A #### [facility] ([id number]) [address], [address] [place] [address] W.B.CELLS 80 /hpf High 0-5 [facility] Comment on above: Performed By: #### U A #### [facility] ([id number]) [address], [address] [place] [address] VENOUS BLOOD GASon [address] [facility] Comment on above: Performed By: #### U A #### [facility] ([id number]) [address], [address] [place] [address] Base excess Calc (Bld) [Moles/Vol] 2.0 mmol/L Normal 0.0-2.0 [facility] Comment on above: Performed By: #### U A #### [facility] ([id number]) [address], [address] [place] [address] Body temperature 98.6 [degF] Normal 37.0 [facility] Comment on above: Performed By: #### U A #### [facility] ([id number]) [address], [address] [place] [address] HCO3 (Bld) [Moles/Vol] 27.7 mmol/L High 20.0-24.0 [facility] Comment on above: Performed By: #### U A #### [facility] ([id number]) [address], [address] [place] [address] INSP. O2 CONC. 21 % Normal [facility] Comment on above: Performed By: #### U A #### [facility] ([id number]) [address], [address] [place] [address] Oxygen saturation in Blood 38.0 % Low >80.0 [facility] Comment on above: Performed By: #### U A #### [facility] ([id number]) [address], [address] [place] [address] OXYGEN SOURCE RoomAir Normal [facility] Comment on above: Performed By: #### U A #### [facility] ([id number]) [address], [address] [place] [address] PCO2, VENOUS 46.9 MMHG Normal 35-50 [facility] Comment on above: Performed By: #### U A #### [facility] ([id number]) [address] [facility], [address] [place] [address] PH, VENOUS 7.379 Normal 7.320-7.420 [facility] Comment on above: Performed By: #### U A #### [facility] ([id number]) [address] [facility], [address] [place] [address] PO2, VENOUS 23 MMHG Low 30-50 [facility] Comment on above: Performed By: #### U A #### [facility] ([id number]) [address] [facility], [address] [place] [address] SAMPLE SITE N/A Normal [facility] Comment on above: Performed By: #### U A #### [facility] ([id number]) [address] [facility], [address] [place] [address] SAMPLE TYPE VENOUS Normal [facility] Comment on above: Performed By: #### U A #### [facility] ([id number]) [address] [facility], [address] [place] [address] VITAMIN B12on 02-18-2024 Cobalamin (Vitamin B12) [Mass/Vol] 962 pg/mL High 180-914 [facility] Comment on above: Performed By: #### U A #### [facility] ([id number]) [address] [facility], [address] [place] [address] CBC AND AUTO DIFFon 02-17-20 24 ABSOLUTE BASOPHIL 0.0 X10E9/L Normal 0.0-0.2 [facility] Comment on above: Performed By: #### C TEE CMP, 07727-0 ####[facility] ([id number])[address] [place] [address] ABSOLUTE NEUTROPHIL 6.4 X10E9/L Normal 1.5-6.6 [facility] Comment on above: Performed By: #### C GUSTAVO OLIVEIRA, ####[facility] ([id number])[address] [place] [address] Basophils/100 WBC (Bld) 0.3 % Normal [facility] Comment on above: Performed By: #### C TEE [facility], ####[facility] ([id number])[address] [place] [address] Eosinophils (Bld) [#/Vol] 0.2 10*3/uL Normal 0.0-0.4 [facility] Comment on above: Performed By: #### [place] OLIVEIR[facility], ####[facility] ([id number])[address] [place] [address] Eosinophils/100 WBC (Bld) 2.0 % Normal [facility] Comment on above: Performed By: #### [place] [facility], ####[facility] ([id number])[address] [place] [address] Erythrocyte distribution width (RBC) [Ratio] 15.4 % High 11.5-15.0 [facility] Comment on above: Performed By: #### [place] [facility], ####[facility] ([id number])[address] [place] [address] Hematocrit (Bld) [Volume fraction] 31.4 % Low 35-47 [facility] Comment on above: Performed By: #### [place] [facility], ####[facility] ([id number])[address] [place] [address] Hemoglobin (Bld) [Mass/Vol] 10.5 g/dL Low 11.7-15.5 [facility] Comment on above: Performed By: #### [place] OLIVEIRA CMP, ####[facility] ([id number])[address] [place] [address] Lymphocytes (Bld) [#/Vol] 1.2 10*3/uL Normal 1.0-3.5 [facility] Comment on above: Performed By: #### [place] OLIVEIRA CMP, ####[facility] ([id number])[address] [place] [address] Lymphocytes/100 WBC (Bld) 14.4 % Normal [facility] Comment on above: Performed By: #### [place] OLIVEIRA CMP, ####[facility] ([id number])[address] [place] [address] MCH (RBC) [Entitic mass] 31.5 pg Normal 27-34 [facility] Comment on above: Performed By: #### [place] OLIVEIRA CMP, ####[facility] ([id number])[address] [place] [address] MCHC (RBC) [Mass/Vol] 33.2 g/dL Normal 32-36 [facility] Comment on above: Performed By: #### [place] [facility], ####[facility] ([id number])[address] [place] [address] MCV (RBC) [Entitic vol] 95 fL Normal 80-100 [facility] Comment on above: Performed By: #### [place] OLIVEIRA CMP, ####[facility] ([id number])[address] [place] [address] Monocytes (Bld) [#/Vol] 0.7 10*3/uL Normal 0-0.9 [facility] Comment on above: Performed By: #### [place] OLIVEIRA CMP, ####[facility] ([id number])[address] [place] [address] Monocytes/100 WBC (Bld) 8.5 % Normal [facility] Comment on above: Performed By: #### [place] OLIVEIRA CMP, ####[facility] ([id number])[address] [place] [address] Neutrophils/100 WBC (Bld) 74.8 % Normal [facility] Comment on above: Performed By: #### [place] OLIVEIRA CMP, ####[facility] ([id number])[address] [place] [address] Platelet mean volume (Bld) [Entitic vol] 7.6 fL Normal 7-12 [facility] Comment on above: Performed By: #### [place] OLIVEIRA CMP, ####[facility] ([id number])[address] [place] [address] Platelets (Bld) [#/Vol] 164 10*3/uL Normal 150-450 [facility] Comment on above: Performed By: #### [place] OLIVEIRA CMP, ####[facility] ([id number])[address] [place] [address] RBC COUNT 3.31 X10E12/L Low 3.80-5.20 [facility] Comment on above: Performed By: #### [place] OLIVEIRA CMP, ####[facility] ([id number])[address] [place] [address] WBC (Bld) [#/Vol] 8.5 10*3/uL Normal 4.0-11.0 [facility] Comment on above: Performed By: #### [place] OLIVEIRA CMP, ####[facility] ([id number])[address] [place] [address] COMPREHENSIVE METABOLIC PANE Ricardo 02-17-2024 Albumin [Mass/Vol] 2.8 g/dL Low 3.2-5.3 [facility] Comment on above: Performed By: #### T SHR #### [facility] ([id number]) [address], [address] [place] [address] ALP [Catalytic activity/Vol] 80 U/L Normal 39-130 [facility] Comment on above: Performed By: #### T SHR #### [facility] ([id number]) [address], [address] [place] [address] ALT [Catalytic activity/Vol] 34 U/L High 0-31 [facility] Comment on above: Performed By: #### T SHR #### [facility] ([id number]) [address] [facility], [address] [place] [address] Anion gap [Moles/Vol] 7 mmol/L Normal 5-15 [facility] Comment on above: Performed By: #### T SHR #### [facility] ([id number]) [address], [address] [place] [address] AST [Catalytic activity/Vol] 53 U/L High 0-41 [facility] Comment on above: Performed By: #### T SHR #### [facility] ([id number]) [address], [address] [place] [address] Bilirubin [Mass/Vol] 0.9 mg/dL Normal 0.3-1.2 [facility] Comment on above: Performed By: #### T SHR #### [facility] ([id number]) [address], [address] [place] [address] Calcium [Mass/Vol] 7.8 mg/dL Low 8.5-10.5 [facility] Comment on above: Performed By: #### T SHR #### [facility] ([id number]) [address], [address] [place] [address] Chloride [Moles/Vol] 105 mmol/L Normal 98-109 [facility] Comment on above: Performed By: #### T SHR #### [facility] ([id number]) [address], [address] [place] [address] CO2 [Moles/Vol] 24 mmol/L Normal 22-32 [facility] Comment on above: Performed By: #### T SHR #### [facility] ([id number]) [address] [facility], [address] [place] [address] Creatinine [Mass/Vol] 0.78 mg/dL Normal 0.40-1.00 [facility] Comment on above: Result Comment: METH OD TRACEABLE TO IDMS STANDARD Performed By: #### T SHR #### [facility] ([id number]) [address] [facility], [address] [place] [address] GFR/1.73 sq M.predicted among non-blacks MDRD (S/P/Bld) [Vol rate/Area] 78 mL/min/{1.73_m2} Normal >59 [facility] Comment on above: Result Comment: Reported eGFR is based on the CKD-EPI 2020 equation that does not use a race coefficient. Performed By: #### T SHR #### [facility] ([id number]) [address] [place] [address] Glucose [Mass/Vol] 76 mg/dL Normal 65-99 [facility] Comment on above: Performed By: #### T SHR #### [facility] ([id number]) [address], [address] [place] [address] Potassium [Moles/Vol] 3.4 mmol/L Low 3.5-5.0 [facility] Comment on above: Performed By: #### T SHR #### [facility] ([id number]) [address] [facility], [address] [place] [address] Protein [Mass/Vol] 5.3 g/dL Low 6.0-8.0 [facility] Comment on above: Performed By: #### T SHR #### [place] [facility] ([id number]) [address], [address] [place] [address] Sodium [Moles/Vol] 136 mmol/L Normal 134-146 [facility] Comment on above: Performed By: #### T SHR #### [facility] ([id number]) [address], [address] [place] [address] Urea nitrogen [Mass/Vol] 18 mg/dL Normal 5-27 [facility] Comment on above: Performed By: #### T SHR #### [facility] ([id number]) [address], [address] [place] [address] MAGNESIUMon 02-17-2024 Magnesium [Mass/Vol] 2.2 mg/dL Normal 1.8-2.6 [facility] Comment on above: Performed By: #### T SHR #### [facility] ([id number]) [address] [place] [address] Magnesium [Mass/Vol] 1.7 mg/dL Low 1.8-2.6 [facility] Comment on above: Performed By: #### T SHR #### [facility] ([id number]) [address], [address] [place] [address] POTASSIUMon 02-17-2024 Potassium [Moles/Vol] 3.9 mmol/L Normal 3.5-5.0 [facility] Comment on above: Performed By: #### T SHR #### [facility] ([id number]) [address], [address] [place] [address] Vitamin D+Metabolites [Mass/ Vol]on 02-17-2024 VITAMIN D 25 HYD TOT 19.7 ng/mL Low 30-100 [facility] Comment on above: Result Comment: Vitamin D status 25 [place] Vitamin D Deficiency <20 ng/mL Insufficiency 20-29 ng/mL Sufficiency 30-100 ng/mL Toxicity >100 ng/mL NOTE: A pediatric reference range has not been established by the harbor [employer] police of this kit. The [place] [employer] recommends a Vitamin D level of = or >20ng/mL in infants and children. Performed By: #### T [facility] #### [facility] ([id number]) [address] [facility], [address] [place] [address] XR CHEST 1 VWon 02-17-2024 XR CHEST 1 VW XR CHEST 1 VW XR CHEST 1 VW CLINICAL INDICATION: Dyspnea. COMPARISON: 02/15/2024. IMPRESSION: 1. Trace pleural effusions likely present, subtle retrocardiac opacities, probably atelectasis without jane consolidation. 2. Unchanged cardiomediastinal silhouette. Finalized by Jefferson Freedman MD on 02/17/2024 7:[address] [facility] CBC AND AUTO DIFFon 02-16-20 24 ABSOLUTE BASOPHIL 0.0 X10E9/L Normal 0.0-0.2 [facility] Comment on above: Performed By: #### C SUBHASH, , CBCA, 42103-4 ####[facility] ([id number])[address] [place] [address] ABSOLUTE NEUTROPHIL 5.8 X10E9/L Normal 1.5-6.6 [facility] Comment on above: Performed By: #### C SUBHASH, , CBCA, 96439-7 ####[facility] ([id number])[address] [place] [address] Basophils/100 WBC (Bld) 0.3 % Normal [facility] Comment on above: Performed By: #### C SUBHASH, , CBCA, 55081-0 ####[facility] ([id number])[address] [place] [address] Eosinophils (Bld) [#/Vol] 0.3 10*3/uL Normal 0.0-0.4 [facility] Comment on above: Performed By: #### C SUBHASH, , CBCA, 16594-8 ####[facility] ([id number])[address] [place] [address] Eosinophils/100 WBC (Bld) 4.2 % Normal [facility] Comment on above: Performed By: #### C SUBHASH, , CBCA, 53638-8 ####[facility] ([id number])[address] [place] [address] Erythrocyte distribution width (RBC) [Ratio] 15.6 % High 11.5-15.0 [facility] Comment on above: Performed By: #### C SUBHASH, , CBCA, 95854-7 ####[facility] ([id number])[address] [place] [address] Hematocrit (Bld) [Volume fraction] 33.9 % Low 35-47 [facility] Comment on above: Performed By: #### C SUBHASH, , CBCA, 99134-4 ####[facility] ([id number])[address] [place] [address] Hemoglobin (Bld) [Mass/Vol] 11.4 g/dL Low 11.7-15.5 [facility] Comment on above: Performed By: #### C SUBHASH, , CBCA, 00517-3 ####[facility] ([id number])[address] [place] [address] Lymphocytes (Bld) [#/Vol] 1.0 10*3/uL Normal 1.0-3.5 [facility] Comment on above: Performed By: #### C SUBHASH, , CBCA, 07888-2 ####[facility] ([id number])[address] [place] [address]10 Lymphocytes/100 WBC (Bld) 12.5 % Normal [facility] Comment on above: Performed By: #### C SUBHASH, , CBCA, 36328-2 ####[facility] ([id number])[address] [place] [address]6580 MCH (RBC) [Entitic mass] 31.3 pg Normal 27-34 [facility] Comment on above: Performed By: #### C SUBHASH, , CBCA, 06646-6 ####[facility] ([id number])[address] [place] [address]45 MCHC (RBC) [Mass/Vol] 33.8 g/dL Normal 32-36 [facility] Comment on above: Performed By: #### C SUBHASH, , CBCA, 17334-8 ####[facility] ([id number])[address] [place] [address] 25787 MCV (RBC) [Entitic vol] 93 fL Normal 80-100 [facility] Comment on above: Performed By: #### C SUBHASH, , CBCA, 08710-0 ####[facility] ([id number])[address] [place] [address]268 Monocytes (Bld) [#/Vol] 0.7 10*3/uL Normal 0-0.9 [facility] Comment on above: Performed By: #### C SUBHASH, 30912-7, CBCA, 50986-0 ####[facility] ([id number])[address] [place] [address]114 Monocytes/100 WBC (Bld) 8.9 % Normal [facility] Comment on above: Performed By: #### C SUBHASH, 69426-8, CBCA, 44455-1 ####[facility] ([id number])[address] [place] [address], [place] [address] Neutrophils/100 WBC (Bld) 74.1 % Normal [facility] Comment on above: Performed By: #### C SUBHASH, , CBCA, 66556-4 ####[facility] ([id number])[address] [place] [address]81 Platelet mean volume (Bld) [Entitic vol] 7.7 fL Normal 7-12 [facility] Comment on above: Performed By: #### C SUBHASH, , CBCA, 20834-4 ####[facility] ([id number])[address] [place] [address]90 Platelets (Bld) [#/Vol] 196 10*3/uL Normal 150-450 [facility] Comment on above: Performed By: #### C SUBHASH, , CBCA, 00007-8 ####[facility] ([id number])[address] [place] [address] 67203 RBC COUNT 3.66 X10E12/L Low 3.80-5.20 [facility] Comment on above: Performed By: #### C SUBHASH, , CBCA, 23773-1 ####[facility] ([id number])[address] [place] [address] 13328 WBC (Bld) [#/Vol] 7.8 10*3/uL Normal 4.0-11.0 [facility] Comment on above: Performed By: #### C SUBHASH, , CBCA, 13845-9 ####[facility] ([id number])[address] [place] [address]65[address] COMPREHENSIVE METABOLIC PANE Ricardo 02-16-2024 Albumin [Mass/Vol] 3.4 g/dL Normal 3.2-5.3 [facility] Comment on above: Performed By: #### C SUBHASH, 47342-7, CBCA, 28243-8 ####[facility] ([id number])[address] [place] [address] ALP [Catalytic activity/Vol] 44 U/L Normal 39-130 [facility] Comment on above: Performed By: #### C SUBHASH, 51975-0, CBCA, 06800-8 ####[facility] ([id number])[address] [place] [address]249 ALT [Catalytic activity/Vol] 18 U/L Normal 0-31 [facility] Comment on above: Performed By: #### C SUBHASH, 91793-4, CBCA, 10604-3 ####[facility] ([id number])[address] [place] [address] 34218 Anion gap [Moles/Vol] 6 mmol/L Normal 5-15 [facility] Comment on above: Performed By: #### C SUBHASH, , CBCA, 52843-8 ####[facility] ([id number])[address] [place] [address] 21780 AST [Catalytic activity/Vol] 24 U/L Normal 0-41 [facility] Comment on above: Performed By: #### C SUBHASH, , CBCA, 76489-6 ####[facility] ([id number])[address] [place] [address] 31039 Bilirubin [Mass/Vol] 0.9 mg/dL Normal 0.3-1.2 [facility] Comment on above: Performed By: #### C SUBHASH, 83030-9, CBCA, 48843-6 ####[facility] ([id number])[address] [place] [address] 59810 Calcium [Mass/Vol] 8.2 mg/dL Low 8.5-10.5 [facility] Comment on above: Performed By: #### C SUBHASH, 76070-5, CBCA, 92117-6 ####[facility] ([id number])[address] [place] [address] 68202 Chloride [Moles/Vol] 105 mmol/L Normal 98-109 [facility] Comment on above: Performed By: #### C SUBHASH, 13038-9, CBCA, 82643-4 ####[facility] ([id number])[address] [place] [address] 24080 CO2 [Moles/Vol] 27 mmol/L Normal 22-32 [facility] Comment on above: Performed By: #### C SUBHASH, , CBCA, 92078-0 ####[facility] ([id number])[address] [place] [address] 80990 Creatinine [Mass/Vol] 0.87 mg/dL Normal 0.40-1.00 [facility] Comment on above: Result Comment: METH OD TRACEABLE TO IDMS STANDARD Performed By: #### C SUBHASH, , CBCA, 07474-8 ####[facility] ([id number])[address] [place] [address] 15529 GFR/1.73 sq M.predicted among non-blacks MDRD (S/P/Bld) [Vol rate/Area] 68 mL/min/{1.73_m2} Normal >59 [facility] Comment on above: Result Comment: Reported eGFR is based on the CKD-EPI 2020 equation that does not use a race coefficient. Performed By: #### C SUBHASH, , CBCA, 19562-6 ####[facility] ([id number])[address] [place] [address] 36599 Glucose [Mass/Vol] 100 mg/dL High 65-99 [facility] Comment on above: Performed By: #### C SUBHASH, 96238-2, CBCA, 75897-5 ####[facility] ([id number])[address], [place] [address] Potassium [Moles/Vol] 3.4 mmol/L Low 3.5-5.0 [facility] Comment on above: Performed By: #### C SUBHASH, , CBCA, 48288-5 ####[facility] ([id number])[address] [place] [address] 89117 Protein [Mass/Vol] 5.8 g/dL Low 6.0-8.0 [facility] Comment on above: Performed By: #### C SUBHASH, , CBCA, 54782-1 ####[facility] ([id number])[address] [place] [address] 74822 Sodium [Moles/Vol] 138 mmol/L Normal 134-146 [facility] Comment on above: Performed By: #### C SUBHASH, , CBCA, 07636-3 ####[facility] ([id number])[address] [place] [address] 46480 Urea nitrogen [Mass/Vol] 15 mg/dL Normal 5-27 [facility] Comment on above: Performed By: #### C SUBHASH, , CBCA, 48451-7 ####[facility] ([id number])[address] [place] [address] 09718 HGB AND HCTon 02-16-2024 Hematocrit (Bld) [Volume fraction] 35.1 % Normal 35-47 [facility] Comment on above: Performed By: #### H H ####[facility] ([id number])[address] [place] [address] 44650 Hemoglobin (Bld) [Mass/Vol] 11.5 g/dL Low 11.7-15.5 [facility] Comment on above: Performed By: #### H H ####[facility] ([id number])[address] [place] [address] 50391 MAGNESIUMon 02-16-2024 Magnesium [Mass/Vol] 1.9 mg/dL Normal 1.8-2.6 [facility] Comment on above: Performed By: #### C SUHBASH, 42796-4, CBCA, 51749-5 ####[facility] ([id number])[address] [place] [address] 51147 Natriuretic peptide B [Mass/ Vol]on 02-16-2024 Natriuretic peptide B (Bld) [Mass/Vol] 364 pg/mL High <100.0 [facility] Comment on above: Performed By: #### C MP, 94425-6, CBCA, 47749-5 ####[facility] ([id number])[address] [place] [address] 35820 XR HIP LT 2-3 VIEWS W OR [...] Garcia MD on 02/16/2024 6:[address] [facility] 25-hydroxyvitamin D3 and Vit kang D2 panelon 02-15-2024 25-Hydroxy D Total 38 ng/mL Normal [facility] Comment on above: Result Comment: NOTE REFERENCE VALUE 25-HYDROXY D TOTAL (D2+D3) Optimum levels in the healthy population are 20-50. ADDITIONAL INFORMATION This test was developed and its performance characteristics determined by [facility] in a manner consistent with CLIA requirements. This test has not been cleared or approved by the U.S. Food and Drug Administration. Test Performed by: [facility] [address] [place] [address] Exhibits Coordinator: Lorenzo Harrell Ph.D.; CLIA# [id number] Performed By: #### Marietta OLIVEIRA CMP, 26295-0 #### [facility] ([id number]) [address] [place] [address] 23042 25-Hydroxy D2 32 ng/mL Normal [facility] Comment on above: Performed By: #### Marietta OLIVEIRA CMP, 21625-3 #### [facility] ([id number]) [address] [place] [address] 77874 25-Hydroxy D3 5.9 ng/mL Normal [facility] Comment on above: Performed By: #### Marietta OLIVEIRA CMP, 09234-6 #### [facility] ([id number]) [address] [place] [address] 73004 CBC AND AUTO DIFFon 02-15-20 24 ABSOLUTE BASOPHIL 0.0 X10E9/L Normal 0.0-0.2 [facility] Comment on above: Performed By: #### Marietta OLIVEIRA CMP, 90634-0 #### [facility] ([id number]) [address] [place] [address] 46786 ABSOLUTE NEUTROPHIL 7.1 X10E9/L High 1.5-6.6 [facility] Comment on above: Performed By: #### Marietta OLIVEIRA CMP, 35207-4 #### [facility] ([id number]) [address] [place] [address] 76363 Basophils/100 WBC (Bld) 0.4 % Normal [facility] Comment on above: Performed By: #### Marietta OLIVEIRA CMP, 31414-4 #### [facility] ([id number]) [address] [place] [address] 96961 Eosinophils (Bld) [#/Vol] 0.2 10*3/uL Normal 0.0-0.4 [facility] Comment on above: Performed By: #### Marietta OLIVEIRA CMP, 47065-9 #### [facility] ([id number]) [address] [place] [address] 57140 Eosinophils/100 WBC (Bld) 1.8 % Normal [facility] Comment on above: Performed By: #### Marietta OLIVEIRA CMP, 77489-3 #### [facility] ([id number]) [address] [place] [address] 06081 Erythrocyte distribution width (RBC) [Ratio] 15.6 % High 11.5-15.0 [facility] Comment on above: Performed By: #### Marietta OLIVEIRA CMP, 04357-0 #### [facility] ([id number]) [address] [place] [address] 73185 Hematocrit (Bld) [Volume fraction] 35.8 % Normal 35-47 [facility] Comment on above: Performed By: #### Marietta OLIVEIRA CMP, 13343-2 #### [facility] ([id number]) [address] [place] [address] 21479 Hemoglobin (Bld) [Mass/Vol] 12.0 g/dL Normal 11.7-15.5 [facility] Comment on above: Performed By: #### Marietta OLIVEIRA CMP, 15625-0 #### [facility] ([id number]) [address] [place] [address] 53897 Lymphocytes (Bld) [#/Vol] 1.1 10*3/uL Normal 1.0-3.5 [facility] Comment on above: Performed By: #### Marietta OLIVEIRA CMP, 92854-8 #### [facility] ([id number]) [address] [place] [address] 13799 Lymphocytes/100 WBC (Bld) 11.9 % Normal [facility] Comment on above: Performed By: #### Marietta OLIVEIRA CMP, 76293-5 #### [facility] ([id number]) [address] [place] [address] 16496 MCH (RBC) [Entitic mass] 31.2 pg Normal 27-34 [facility] Comment on above: Performed By: #### Marietta OLIVEIRA CMP, 96775-4 #### [facility] ([id number]) [address] [place] [address] 27064 MCHC (RBC) [Mass/Vol] 33.6 g/dL Normal 32-36 [facility] Comment on above: Performed By: #### Marietta OLIVEIRA CMP, 02192-6 #### [facility] ([id number]) [address] [place] [address] 02128 MCV (RBC) [Entitic vol] 93 fL Normal 80-100 [facility] Comment on above: Performed By: #### Marietta OLIVEIRA CMP, 54521-6 #### [facility] ([id number]) [address] [place] [address] 16360 Monocytes (Bld) [#/Vol] 0.8 10*3/uL Normal 0-0.9 [facility] Comment on above: Performed By: #### Marietta OLIVEIRA CMP, 32981-3 #### [facility] ([id number]) [address] [place] [address] 58411 Monocytes/100 WBC (Bld) 8.3 % Normal [facility] Comment on above: Performed By: #### Marietta OLIVEIRA CMP, 94692-5 #### [facility] ([id number]) [address] [place] [address] 71011 Neutrophils/100 WBC (Bld) 77.6 % Normal [facility] Comment on above: Performed By: #### Marietta OLIVEIRA CMP, 41409-0 #### [facility] ([id number]) [address] [place] [address] 99101 Platelet mean volume (Bld) [Entitic vol] 7.0 fL Normal 7-12 [facility] Comment on above: Performed By: #### Marietta OLVIEIRA CMP, 45297-6 #### [facility] ([id number]) [address] [place] [address] 59471 Platelets (Bld) [#/Vol] 199 10*3/uL Normal 150-450 [facility] Comment on above: Performed By: #### Marietta OLIVEIRA CMP, 40168-0 #### [facility] ([id number]) [address] [place] [address] 90422 RBC COUNT 3.86 X10E12/L Normal 3.80-5.20 [facility] Comment on above: Performed By: #### Mareitta OLIVEIRA CMP, 25261-5 #### [facility] ([id number]) [address] [place] [address] 25742 WBC (Bld) [#/Vol] 9.1 10*3/uL Normal 4.0-11.0 [facility] Comment on above: Performed By: #### Marietta OLIVEIRA CMP, 78692-7 #### [facility] ([id number]) [address] [place] [address] 31948 COMPREHENSIVE METABOLIC PANE Ricardo 02-15-2024 Albumin [Mass/Vol] 3.8 g/dL Normal 3.2-5.3 [facility] Comment on above: Performed By: #### Marietta OLIVEIRA CMP, 84152-8 #### [facility] ([id number]) [address] [place] [address] 10083 ALP [Catalytic activity/Vol] 52 U/L Normal 39-130 [facility] Comment on above: Performed By: #### C BCA, CMP, 11685-0 #### [facility] ([id number]) [address] [place] [address] 90033 ALT [Catalytic activity/Vol] 21 U/L Normal 0-31 [facility] Comment on above: Performed By: #### C BCA, CMP, 91670-1 #### [facility] ([id number]) [address] [place] [address] 55596 Anion gap [Moles/Vol] 6 mmol/L Normal 5-15 [facility] Comment on above: Performed By: #### C BCA, CMP, 23486-3 #### [facility] ([id number]) [address] [place] [address] 11127 AST [Catalytic activity/Vol] 29 U/L Normal 0-41 [facility] Comment on above: Performed By: #### C BCA, CMP, 50295-6 #### [facility] ([id number]) [address] [place] [address] 63814 Bilirubin [Mass/Vol] 0.7 mg/dL Normal 0.3-1.2 [facility] Comment on above: Performed By: #### C BCA, CMP, 81410-7 #### [facility] ([id number]) [address] [place] [address] 15833 Calcium [Mass/Vol] 8.6 mg/dL Normal 8.5-10.5 [facility] Comment on above: Performed By: #### C BCA, CMP, 64278-9 #### [facility] ([id number]) [address] [place] [address] 99996 Chloride [Moles/Vol] 107 mmol/L Normal 98-109 [facility] Comment on above: Performed By: #### C BCA, CMP, 89686-7 #### [facility] ([id number]) [address] [place] [address] 92293 CO2 [Moles/Vol] 25 mmol/L Normal 22-32 [facility] Comment on above: Performed By: #### C GUSTAVO OLIVEIRA, 24235-2 #### [facility] ([id number]) [address] [place] [address] 02899 Creatinine [Mass/Vol] 0.96 mg/dL Normal 0.40-1.00 [facility] Comment on above: Result Comment: METH OD TRACEABLE TO IDMS STANDARD Performed By: #### C GUSTAVO OLIVEIRA, 10051-9 #### [facility] ([id number]) [address] [place] [address] 08539 GFR/1.73 sq M.predicted among non-blacks MDRD (S/P/Bld) [Vol rate/Area] 61 mL/min/{1.73_m2} Normal >59 [facility] Comment on above: Result Comment: Reported eGFR is based on the CKD-EPI 2020 equation that does not use a race coefficient. Performed By: #### C GUSTAVO OLIVEIRA, 19644-0 #### [facility] ([id number]) [address] [place] [address] 33200 Glucose [Mass/Vol] 122 mg/dL High 65-99 [facility] Comment on above: Performed By: #### C GUSTAVO OLIVEIRA, 82862-0 #### [facility] ([id number]) [address] [place] [address] 62774 Potassium [Moles/Vol] 3.6 mmol/L Normal 3.5-5.0 [facility] Comment on above: Performed By: #### C GUSTAVO OLIVEIRA, 59649-6 #### [facility] ([id number]) [address] [place] [address] 00769 Protein [Mass/Vol] 6.8 g/dL Normal 6.0-8.0 [facility] Comment on above: Performed By: #### C BCA, CMP, 02478-1 #### [facility] ([id number]) [address] [place] [address] 41856 Sodium [Moles/Vol] 138 mmol/L Normal 134-146 [facility] Comment on above: Performed By: #### C BCA, CMP, 62851-2 #### [facility] ([id number]) [address] [place] [address] 76861 Urea nitrogen [Mass/Vol] 20 mg/dL Normal 5-27 [facility] Comment on above: Performed By: #### C BCA, CMP, 46834-1 #### [facility] ([id number]) [address] [place] [address] 26636 Prealbumin IA [Mass/Vol]on 0 02-15-2024 Prealbumin [Mass/Vol] 20 mg/dL Normal 18-45 [facility] Comment on above: Performed By: #### 8 9579-7 ####[facility] ([id number])[address] [place] [address] 21255#### 6793-4 ####[facility] ([id number])[address], [address] [address] TSH WITH REFLEXon 02-15-2024 TSH 1.79 uIU/mL Normal 0.49-4.67 [facility] Comment on above: Performed By: #### T SHR #### [facility] ([id number]) [address] [facility], [address] [place] [address] Troponin I.cardiac High sens itivity method [Mass/Vol]on 02-15-2024 1 HOUR TROP I, HIGH SENSITIVITY 7 ng/L Normal <16 [facility] Comment on above: Performed By: #### 8 9579-7 ####[facility] ([id number])[address] [place] [address], [place] [address]#### 6793-4 ####[facility] ([id number])[address] [place] [address], [address], [place] [address] TROPONIN I, HIGH SENSITIVITY 7 ng/L Normal <16 [facility] Comment on above: Performed By: #### C BCA, CMP, 75624-5 #### [facility] ([id number]) [address] [place] [address] 86453 URINALYSISon 02-15-2024 Bilirubin Ql (U) Negative Normal NEG [facility] Comment on above: Performed By: #### U A ####[facility] ([id number])[address] [place] [address] 15718 BLOOD/HGB Large Abnormal NEG [facility] Comment on above: Performed By: #### U A ####[facility] ([id number])[address] [place] [address] 80127 Color (U) ORANGE Abnormal YELLOW [facility] Comment on above: Performed By: #### U A ####[facility] ([id number])[address] [place] [address] 27679 Glucose Ql (U) Negative Normal NEG [facility] Comment on above: Performed By: #### U A ####[facility] ([id number])[address] [place] [address] 87128 Ketones Ql (U) Trace Abnormal NEG [facility] Comment on above: Performed By: #### U A ####[facility] ([id number])[address] [place] [address] 03846 Leukocyte esterase Test strip Ql (U) MODERATE Abnormal NEG [facility] Comment on above: Performed By: #### U A ####[facility] ([id number])[address] [place] [address] 48270 MUCOUS PRESENT Abnormal NONE [facility] Comment on above: Performed By: #### U A ####[facility] ([id number])[address] [place] [address] 73653 Nitrite Ql (U) Positive Abnormal NEG [facility] Comment on above: Performed By: #### U A ####[facility] ([id number])[address] [place] [address] 94840 pH (U) 5.5 [pH] Normal 5.0-8.5 [facility] Comment on above: Performed By: #### U A ####[facility] ([id number])[address] [place] [address] 67617 Protein Ql (U) 100 mg/dL Abnormal NEG [facility] Comment on above: Performed By: #### U A ####[facility] ([id number])[address] [place] [address] 83320 R.B.CELLS PRESENT Normal 0-5 [facility] Comment on above: Performed By: #### U A ####[facility] ([id number])[address] [place] [address] 93675 Specific gravity (U) [Rel density] >1.030 Normal 1.003-1.035 [facility] Comment on above: Performed By: #### U A ####[facility] ([id number])[address] [place] [address] 42763 SQUAMOUS EPITHELIUM PRESENT Normal 0-5 [facility] Comment on above: Performed By: #### U A ####[facility] ([id number])[address] [place] [address] [place] [address] TRANSITIONAL EPITH PRESENT Normal 0 [facility] Comment on above: Performed By: #### U A ####[facility] ([id number])[address] [place] [address] 18225 TURBIDITY CLOUDY Abnormal CLEAR [facility] Comment on above: Performed By: #### U A ####[facility] ([id number])[address] [place] [address] 34099 Urinalysis dipstick W Reflex Microscopic panel (U) URINE RECEIVED WITHOUT PRESERVATIVE-DELAYS IN TRANSPORT MAY AFFECT RESULTS.INTERPRET WITH CAUTION AND CLINICAL CORRELATION IS RECOMMENDED. Normal [facility] Comment on above: Performed By: #### U A ####[facility] ([id number])[address] [place] [address] 88812 Urinalysis dipstick W Reflex Microscopic panel (U) Results may be affected due to high WBC count, Interpret with Caution. Normal [facility] Comment on above: Performed By: #### U A ####[facility] ([id number])[address] [place] [address] 26767 Urobilinogen Qn (U) 1.0 {Maren'U}/dL Normal <1.1 [facility] Comment on above: Performed By: #### U A ####[facility] ([id number])[address] [place] [address] 98523 W.B.CELLS >100 High 0-5 [facility] Comment on above: Performed By: #### U A ####[facility] ([id number])[address] [place] [address] 44913 Bilirubin Ql (U) Negative Normal NEG [facility] Comment on above: Performed By: #### U A #### [facility] ([id number]) [address], [address] [place] [address] BLOOD/HGB Small Abnormal NEG [facility] Comment on above: Performed By: #### U A #### [facility] ([id number]) [address] [facility], [address] [place] [address] Color (U) YELLOW Normal YELLOW [facility] Comment on above: Performed By: #### U A #### [facility] ([id number]) [address] [place] [address], [address] [place] [address] Glucose Ql (U) Negative Normal NEG [facility] Comment on above: Performed By: #### U A #### [facility] ([id number]) [address] [place] [address], [address] [place] [address] Ketones Ql (U) Negative Normal NEG [facility] Comment on above: Performed By: #### U A #### [facility] ([id number]) [address] [place] [address], [address] [place] [address] Leukocyte esterase Test strip Ql (U) Large Abnormal NEG [facility] Comment on above: Performed By: #### U A #### [facility] ([id number]) [address] [place] [address], [address] [place] [address] MUCOUS PRESENT Abnormal NONE [facility] Comment on above: Performed By: #### U A #### [facility] ([id number]) [address] [place] [address], [address] [place] [address] Nitrite Ql (U) Negative Normal NEG [facility] Comment on above: Performed By: #### U A #### [facility] ([id number]) [address] [place] [address], [address] [place] [address] pH (U) 6.0 [pH] Normal 5.0-8.5 [facility] Comment on above: Performed By: #### U A #### [facility] ([id number]) [address] [place] [address], [address] [place] [address] Protein Ql (U) 50 mg/dL Abnormal NEG [facility] Comment on above: Performed By: #### U A #### [facility] ([id number]) [address] [place] [address], [address] [place] [address] R.B.CELLS 7 /hpf High 0-5 [facility] Comment on above: Performed By: #### U A #### [facility] ([id number]) [address], [address] [place] [address] Specific gravity (U) [Rel density] 1.029 Normal 1.003-1.035 [facility] Comment on above: Performed By: #### U A #### [facility] ([id number]) [address] [address] [place] [address] SQUAMOUS EPITHELIUM 24 /hpf High 0-5 [facility] Comment on above: Performed By: #### U A #### [facility] ([id number]) [address] [facility] [address] [place] [address] TURBIDITY CLOUDY Abnormal CLEAR [facility] Comment on above: Performed By: #### U A #### [facility] ([id number]) [address] [address] [place] [address] Urobilinogen (U) [Mass/Vol] mg/dL Normal <1.1 [facility] Comment on above: Performed By: #### U A #### [facility] ([id number]) [address] [address] [place] [address] W.B.CELLS >720 High 0-5 [facility] Comment on above: Performed By: #### U A #### [facility] ([id number]) [address] [address] [place] [address] WBC CLUMPS MANY Abnormal NONE [facility] Comment on above: Performed By: #### U A #### [facility] ([id number]) [address] [address] [place] [address] URINE CULTUREon 02-15-2024 Bacteria identified Cx Nom (U) SPECIMEN NOTES URINE RECEIVED WITHOUT PRESERVATIVE CULTURE RESULTS >100,000 ORGANISMS/mL FILOMENA GLABRATA URINE RECEIVED WITHOUT PRESERVATIVE-DELAYS IN TRANSPORT MAY AFFECT RESULTS.INTERPRET WITH CAUTION AND CLINICAL CORRELATION IS RECOMMENDED. Normal [facility] Comment on above: Performed By: #### T SHR #### [facility] ([id number]) [address] [place] [address] XR CHEST 1 VWon 02-15-2024 XR CHEST 1 VW XR CHEST 1 VW Single view chest History: Difficulty breathing, shortness of breath Comparison: 05/10/2020 Impression: 1. Central pulmonary vascular congestion. Probable trace interstitial pulmonary edema. Small left pleural effusion. No pneumothorax. 2. Nonenlarged heart. 3. Sternotomy could Finalized by Anatoliy Sifuentes MD on 02/15/2024 10:[address] [facility] XR ELBOW LT MIN 3 VWSon 01-20 XR ELBOW LT MIN 3 VWS XR ELBOW LT MIN 3 VWS XR ELBOW LT MIN 3 VWS HISTORY: fall injury. COMPARISON: none IMPRESSION: 1. Small effusion, subtle cortical irregularity about the radial head [best seen on lateral], possibly minimally displaced fracture versus degenerative changes. Finalized by Anatoliy Sifuentes MD on 02/15/2024 10:[address] [facility] XR HIP LT 2-3 VIEWS W [...] Sifuentes MD on 02/15/2024 10:[address] [facility] US RETROPERITONEAL COMPLETEo n 01-17-2024 US [...] Son MD on 01/17/2024 10:[address] [facility] XR ABDOM COMP SERIES W PA [...] Cadet MD on 01/13/2024 5:[address] [facility] Office/Cl inic Noteon [...] with Dr. Leung of internal medicine at [place]. This condition caused back myalgia, and she had a challenging period. She notes a significant improvement from shingles despite a gradual recovery. Her shingles resulted in bladder and bowel issues, which have been her most distressing problems and are currently her primary concerns. She is scheduled for a follow-up appointment with a specialist in [place] in 11/2023 to address her bladder issues. [...] mmHg. 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 She experiences episodes of depression, though these are improving. She has resumed taking Xanax. Her younger daughter facilitated a consultation with a psychiatrist in [place], who manages her Xanax regimen. The psychiatrist [...] with voice recognition artificial intelligence software, specifically [employer], [employer] and or [employer]. Substitutions may have occurred due to the inherent limitations of voice recognition and artificial intelligence software. Documentation services were performed after patient or guardian consented to allow [employer] to record this visit. DARVIN continuous improvement specialist and provider reviewed before signing. DARVIN: Andrea Cabantac Follow-up No qualifying data available Problem List/Past Medical History Ongoing Adjustment disorder with anxious mood Anemia Anxiety Atherosclerosis aorta Bladder stone BMI 29.0-29.9,adult CAD in [place] artery Complex posttraumatic stress disorder Disorder of vitami (more content not included)... Normal [facility] Comment on above: Result Comment: Elec tronically Signed By: Portillo PIPER, Rahul Varner\.br\Date and Time Signed: 12/05/23 06:20 EDT\.br\Electronically Co-Signed By: Andrea Gonzalez\.br\Date and Time Co-Signed: 11/13/23 14:21 EDT Consent for Treatmenton 10-20 Consent for Treatment [id number] 0TIFF [facility] Physician Orderon 11-13-2023 Physician Order [id number]. 00TIFF [facility] Amorphous urine sedimentOrde red By: Rashard Aguilar on 09-12-2023 Amorphous sediment LM Ql (Urine sed) See comment Negative [facility] Comment on above: Unable to obtain acc urate result due to color interference. Automated epithelial cells c ount in urine sediment (number/area)Ordered By: Rashard Aguilar on 09-12-2023 Epithelial cells Auto (Urine sed) [#/Area] 5-9 [HPF] 0-2 [facility] Automated erythrocytes count in urine sediment (number/area)Ordered By: Rashard Aguilar on 09-12-2023 RBC Auto (Urine sed) [#/Area] 3-4 [HPF] 0-4 [facility] Automated leukocytes count i n urine sediment (number/area)Ordered By: Rashard Aguilar on 09-12-2023 WBC Auto (Urine sed) [#/Area] 50-100 [HPF] 0-4 [facility] Automated urine hyaline cast s count (number/volume)Ordered By: Rashard Aguilar on 09-12-2023 Hyaline casts Auto (U) [#/Vol] 0-1 [LPF] 0-1 [facility] Automated urine specific gra vity by refractometryOrdered By: Rashard Aguilar on 09-12-2023 Specific gravity Refractometry automated (U) [Rel density] 1.028 1.001-1.030 [facility] Basophils Auto (Bld) [#/Vol] Ordered By: Rashard Aguilar on 09-12-2023 Basophils (Bld) [#/Vol] 0.0 10*3/uL 0.0-0.2 [facility] Basophils/100 WBC Auto (Bld) Ordered By: Rashard Aguilar on 09-12-2023 Basophils/100 WBC (Bld) 0.8 % . [facility] Bilirubin Auto test strip Ql (U)Ordered By: Rashard Aguilar on 09-12-2023 Bilirubin Ql (U) See comment Negative [facility] Comment on above: Unable to obtain acc urate result due to color interference. C reactive protein [Mass/vol ume] in Serum or PlasmaOrdered By: Rashard Aguilar on 09-12-2023 CRP [Mass/Vol] 0.6 mg/dL 0.0-0.5 [facility] C-Reactive Proteinon 024 C-Reactive Protein 0.6 mg/dL High 0.0-0.5 [facility] Comment on above: Result Comment: PERF ORMED BY: [place] [address] PATHOLOGIST [employer] KEYON SERNA M.D. Performed By: #### C BC, ADDONUAPLUS, ESR, CUU, CRP, CREAT #### [address] #### C4, C3 #### [facility] , Complement C3on 09-12-2023 Complement C3 155 mg/dL Normal 82-167 [facility] Comment on above: Result Comment: Perf ormed at: CB - [facility] [address] [id number] Exhibits Coordinator: Paul Dumont PhD, Phone: [phone] Performed By: #### C BC, ADDONUAPLUS, ESR, CUU, CRP, CREAT #### [address] #### C4, C3 #### [facility] , Complement C4on 09-12-2023 Complement C4 34 mg/dL Normal 12-38 [facility] Comment on above: Result Comment: PERF ORMED BY: [place] [address] PATHOLOGIST [employer] KEY[employer] SERNA M.D. Performed By: #### C BC, ADDONUAPLUS, ESR, CUU, CRP, CREAT #### [address] #### C4, C3 #### [facility] , Complete Blood Count Auto Di ffon 09-12-2023 Basophils (Bld) [#/Vol] 0.0 10*3/uL Normal 0.0-0.2 [facility] Comment on above: Performed By: #### C BC, ADDONUAPLUS, ESR, CUU, CRP, CREAT #### [address] #### C4, C3 #### [facility] , Basophils/100 WBC (Bld) 0.8 % Normal . [facility] Comment on above: Performed By: #### C BC, ADDONUAPLUS, ESR, CUU, CRP, CREAT #### [place] [address] [place] #### C4, C3 #### [facility] , Eosinophils (Bld) [#/Vol] 0.2 10*3/uL Normal 0.0-0.45 [facility] Comment on above: Performed By: #### C BC, ADDONUAPLUS, ESR, CUU, CRP, CREAT #### [place] [address] [place] #### C4, C3 #### [facility] , Eosinophils/100 WBC (Bld) 4.0 % Normal . [facility] Comment on above: Performed By: #### C BC, ADDONUAPLUS, ESR, CUU, CRP, CREAT #### [place] [address] [place] #### C4, C3 #### [facility] , Erythrocyte distribution width (RBC) [Ratio] 14.3 % Normal 11.9-15.3 [facility] Comment on above: Performed By: #### C BC, ADDONUAPLUS, ESR, CUU, CRP, CREAT #### [address] #### C4, C3 #### [facility] , Hematocrit (Bld) [Volume fraction] 39.2 % Normal 34.0-46.4 [facility] Comment on above: Performed By: #### C BC, ADDONUAPLUS, ESR, CUU, CRP, CREAT #### [place] [address] [place] #### C4, C3 #### [facility] , Hemoglobin (Bld) [Mass/Vol] 12.9 g/dL Normal 11.8-15.4 [facility] Comment on above: Performed By: #### C BC, ADDONUAPLUS, ESR, CUU, CRP, CREAT #### [address] #### C4, C3 #### [facility] , Lymphocytes (Bld) [#/Vol] 1.8 10*3/uL Normal 1.00-4.8 [facility] Comment on above: Performed By: #### C BC, ADDONUAPLUS, ESR, CUU, CRP, CREAT #### [place] [address] [place] #### C4, C3 #### [facility] , Lymphocytes/100 WBC (Bld) 31.9 % Normal . [facility] Comment on above: Performed By: #### C BC, ADDONUAPLUS, ESR, CUU, CRP, CREAT #### [place] [address] [place] #### C4, C3 #### [facility] , MCH (RBC) [Entitic mass] 31.1 pg Normal 24.7-34.3 [facility] Comment on above: Performed By: #### C BC, ADDONUAPLUS, ESR, CUU, CRP, CREAT #### [address] #### C4, C3 #### [facility] , MCV (RBC) [Entitic vol] 94.4 fL Normal 80-100 [facility] Comment on above: Performed By: #### C BC, ADDONUAPLUS, ESR, CUU, CRP, CREAT #### [address] #### C4, C3 #### [facility] , Mean Corpuscular HGB Conc 33.0 g/dL Normal 32.0-35.0 [facility] Comment on above: Performed By: #### C BC, ADDONUAPLUS, ESR, CUU, CRP, CREAT #### [address] #### C4, C3 #### [facility] , Monocytes (Bld) [#/Vol] 0.5 10*3/uL Normal 0.0-0.8 [facility] Comment on above: Performed By: #### C BC, ADDONUAPLUS, ESR, CUU, CRP, CREAT #### [place] [address] [place] #### C4, C3 #### [facility] , Monocytes/100 WBC (Bld) 8.5 % Normal . [facility] Comment on above: Performed By: #### C BC, ADDONUAPLUS, ESR, CUU, CRP, CREAT #### [place] [address] [place] #### C4, C3 #### [facility] , Neutrophils (Bld) [#/Vol] 3.1 10*3/uL Normal 1.8-7.7 [facility] Comment on above: Performed By: #### C BC, ADDONUAPLUS, ESR, CUU, CRP, CREAT #### [place] [address] [place] #### C4, C3 #### [facility] , Neutrophils/100 WBC (Bld) 54.8 % Normal . [facility] Comment on above: Performed By: #### C BC, ADDONUAPLUS, ESR, CUU, CRP, CREAT #### [place] [address] [place] #### C4, C3 #### [facility] , NRBC% 0.2 /100{WBC} Normal 0-0.5 [facility] Comment on above: Performed By: #### C BC, ADDONUAPLUS, ESR, CUU, CRP, CREAT #### [place] [address] [place] #### C4, C3 #### [facility] , Platelet mean volume (Bld) [Entitic vol] 7.6 fL Normal 6.3-10.7 [facility] Comment on above: Performed By: #### C BC, ADDONUAPLUS, ESR, CUU, CRP, CREAT #### [place] [address] [place] #### C4, C3 #### [facility] , Platelets (Bld) [#/Vol] 263 10*3/uL Normal 150-450 [facility] Comment on above: Performed By: #### C BC, ADDONUAPLUS, ESR, CUU, CRP, CREAT #### [place] [address] [place] #### C4, C3 #### [facility] , RBC (Bld) [#/Vol] 4.16 10*6/uL Normal 3.60-5.00 [facility] Comment on above: Performed By: #### C BC, ADDONUAPLUS, ESR, CUU, CRP, CREAT #### [place] [address] [place] #### C4, C3 #### [facility] , WBC (Bld) [#/Vol] 5.7 10*3/uL Normal 3.8-11.6 [facility] Comment on above: Performed By: #### C BC, ADDONUAPLUS, ESR, CUU, CRP, CREAT #### [facility] [address] [place] [address] [place] #### C4, C3 #### [facility] , Creatinineon 09-12-2023 Creatinine [Mass/Vol] 0.92 mg/dL Normal 0.60-1.20 [facility] Comment on above: Performed By: #### C BC, ADDONUAPLUS, ESR, CUU, CRP, CREAT #### [place] [address] [place] #### C4, C3 #### [facility] , GFR/1.73 sq M.predicted MDRD (S/P/Bld) [Vol rate/Area] mL/min/{1.73_m2} Normal [facility] Comment on above: Performed By: #### C BC, ADDONUAPLUS, ESR, CUU, CRP, CREAT #### [place] [address] [place] #### C4, C3 #### [facility] , Creatinine [Mass/volume] in Serum or PlasmaOrdered By: Rashard Aguilar on 09-12-2023 Creatinine [Mass/Vol] 0.92 mg/dL 0.60-1.20 [facility] Dipstick and Microscopicon 0 09-12-2023 Appearance (U) Slightly Cloudy Critically abnormal Clear [facility] Comment on above: Order Comment: Name Collection Type:: Clean-Voided Midstream Performed By: #### C BC, ADDONUAPLUS, ESR, CUU, CRP, CREAT #### [place] [address] [place] #### C4, C3 #### [facility] , Bacteria,Urine 2+ High None Seen [facility] Comment on above: Order Comment: Name Collection Type:: Clean-Voided Midstream Performed By: #### C BC, ADDONUAPLUS, ESR, CUU, CRP, CREAT #### [facility] [address] [place] [address] #### C4, C3 #### [facility] , Bilirubin,Urine Normal Negative [facility] Comment on above: Order Comment: Name Collection Type:: Clean-Voided Midstream Result Comment: Unab le to obtain accurate result due to color interference. Performed By: #### C BC, ADDONUAPLUS, ESR, CUU, CRP, CREAT #### [address] #### C4, C3 #### [facility] , Color (U) [place] Critically abnormal Yellow [facility] Comment on above: Order Comment: Name Collection Type:: Clean-Voided Midstream Performed By: #### C BC, ADDONUAPLUS, ESR, CUU, CRP, CREAT #### [facility] [address] [place] [address] [place] #### C4, C3 #### [facility] , Glucose Ql (U) Normal Normal [facility] Comment on above: Order Comment: Name Collection Type:: Clean-Voided Midstream Result Comment: Unab le to obtain accurate result due to color interference. Performed By: #### C BC, ADDONUAPLUS, ESR, CUU, CRP, CREAT #### [facility] [address] [place] [address] [place] #### C4, C3 #### [facility] , Hyaline Casts,Urine 0-1 Normal 0-1 [facility] Comment on above: Order Comment: Name Collection Type:: Clean-Voided Midstream Performed By: #### C BC, ADDONUAPLUS, ESR, CUU, CRP, CREAT #### [place] [address] [place] #### C4, C3 #### [facility] , Ketones Ql (U) Normal Negative [facility] Comment on above: Order Comment: Name Collection Type:: Clean-Voided Midstream Result Comment: Unab le to obtain accurate result due to color interference. Performed By: #### C BC, ADDONUAPLUS, ESR, CUU, CRP, CREAT #### [place] [address] [place] #### C4, C3 #### [facility] , Leukocyte esterase Test strip Ql (U) Normal Negative [facility] Comment on above: Order Comment: Name Collection Type:: Clean-Voided Midstream Result Comment: Unab le to obtain accurate result due to color interference. Performed By: #### C BC, ADDONUAPLUS, ESR, CUU, CRP, CREAT #### [address] #### C4, C3 #### [facility] , Nitrite,Urine Normal Negative [facility] Comment on above: Order Comment: Name Collection Type:: Clean-Voided Midstream Result Comment: Unab le to obtain accurate result due to color interference. Performed By: #### C BC, ADDONUAPLUS, ESR, CUU, CRP, CREAT #### [place] [address] [place] #### C4, C3 #### [facility] , Occult Blood,Urine Normal Negative [facility] Comment on above: Order Comment: Name Collection Type:: Clean-Voided Midstream Result Comment: Unab le to obtain accurate result due to color interference. Performed By: #### C BC, ADDONUAPLUS, ESR, CUU, CRP, CREAT #### [place] [address] [place] #### C4, C3 #### [facility] , pH,Urine Normal 5.0-9.0 [facility] Comment on above: Order Comment: Name Collection Type:: Clean-Voided Midstream Result Comment: Unab le to obtain accurate result due to color interference. Performed By: #### C BC, ADDONUAPLUS, ESR, CUU, CRP, CREAT #### [address] #### C4, C3 #### [facility] , Protein,Urine Normal Negative [facility] Comment on above: Order Comment: Name Collection Type:: Clean-Voided Midstream Result Comment: Unab le to obtain accurate result due to color interference. Performed By: #### C BC, ADDONUAPLUS, ESR, CUU, CRP, CREAT #### [address] #### C4, C3 #### [facility] , RBC,Urine 3-4 Normal 0-4 [facility] Comment on above: Order Comment: Name Collection Type:: Clean-Voided Midstream Performed By: #### C BC, ADDONUAPLUS, ESR, CUU, CRP, CREAT #### [address] #### C4, C3 #### [facility] , Specificy [place],Urine 1.028 Normal 1.001-1.030 [facility] Comment on above: Order Comment: Name Collection Type:: Clean-Voided Midstream Performed By: #### C BC, ADDONUAPLUS, ESR, CUU, CRP, CREAT #### [address] #### C4, C3 #### [facility] , Squamous Epithelial Cell,Urine 5-9 High 0-2 [facility] Comment on above: Order Comment: Name Collection Type:: Clean-Voided Midstream Performed By: #### C BC, ADDONUAPLUS, ESR, CUU, CRP, CREAT #### [address] #### C4, C3 #### [facility] , Urobilinogen,Urine Normal Normal [facility] Comment on above: Order Comment: Name Collection Type:: Clean-Voided Midstream Result Comment: Unab le to obtain accurate result due to color interference. Performed By: #### C BC, ADDONUAPLUS, ESR, CUU, CRP, CREAT #### [facility] [address] [place] [address] #### C4, C3 #### [facility] , WBC,Urine 50-100 High 0-4 [facility] Comment on above: Order Comment: Name Collection Type:: Clean-Voided Midstream Performed By: #### C BC, ADDONUAPLUS, ESR, CUU, CRP, CREAT #### [address] #### C4, C3 #### [facility] , Yeast,Urine Rare Critically abnormal None Seen [facility] Comment on above: Order Comment: Name Collection Type:: Clean-Voided Midstream Result Comment: PERF ORMED BY: [place] [address] PATHOLOGIST [employer] KEYON SERNA M.D. Performed By: #### C BC, ADDONUAPLUS, ESR, CUU, CRP, CREAT #### [address] #### C4, C3 #### [facility] , Eosinophils Auto (Bld) [#/Vo l]Ordered By: Rashard Aguilar on 09-12-2023 Eosinophils (Bld) [#/Vol] 0.2 10*3/uL 0.0-0.45 [facility] Eosinophils/100 WBC Auto (Bl d)Ordered By: Rashard Aguilar on 09-12-2023 Eosinophils/100 WBC (Bld) 4.0 % . [facility] Erythrocyte Sedimentation Ra duyen 09-12-2023 ESR (Bld) [Velocity] 23 mm/h Normal 0-29 [facility] Comment on above: Result Comment: PERF ORMED BY: [facility] [address] [place] [address] PATHOLOGIST [employer] KEYON SERNA M.D. Performed By: #### C BC, ADDONUAPLUS, ESR, CUU, CRP, CREAT #### [facility] [address] [place] [address] [place] #### C4, C3 #### [facility] , Erythrocyte distribution wid th Auto (RBC) [Ratio]Ordered By: Rashard Aguilar on 09-12-2023 Erythrocyte distribution width (RBC) [Ratio] 14.3 % 11.9-15.3 [facility] Erythrocyte sedimentation ra te by Photometric methodOrdered By: Rashard Aguilar on 09-12-2023 ESR Photometric method (Bld) [Velocity] 23 mm/hr 0-29 [facility] Hematocrit Auto (Bld) [Volum e fraction]Ordered By: Rashard Aguilar on 09-12-2023 Hematocrit (Bld) [Volume fraction] 39.2 % 34.0-46.4 [facility] Hemoglobin [Mass/volume] in BloodOrdered By: Rashard Aguilar on 09-12-2023 Hemoglobin (Bld) [Mass/Vol] 12.9 g/dL 11.8-15.4 [facility] Ketones Test strip (U) [Mass /Vol]Ordered By: Rashard Aguilar on 09-12-2023 Ketones (U) [Mass/Vol] See comment Negative [facility] Comment on above: Unable to obtain acc urate result due to color interference. Leukocytes [#/volume] correc edwige for nucleated erythrocytes in Blood by Automated counOrdered By: Rashard Aguilar on 09-12-2023 WBC corrected for nucl RBC Auto (Bld) [#/Vol] 5.7 10*3/uL 3.8-11.6 [facility] Lymphocytes Auto (Bld) [#/Vo l]Ordered By: Rashard Aguilar on 09-12-2023 Lymphocytes (Bld) [#/Vol] 1.8 10*3/uL 1.00-4.8 [facility] Lymphocytes/100 WBC Auto (Bl d)Ordered By: Rashard Aguilar on 09-12-2023 Lymphocytes/100 WBC (Bld) 31.9 % . [facility] MCH Auto (RBC) [Entitic mass ]Ordered By: Rashard Aguilar on 09-12-2023 MCH (RBC) [Entitic mass] 31.1 pg 24.7-34.3 [facility] MCHC Auto (RBC) [Mass/Vol]Or dered By: Rashrad Aguilar on 09-12-2023 MCHC (RBC) [Mass/Vol] 33.0 g/dL 32.0-35.0 [facility] MCV Auto (RBC) [Entitic vol] Ordered By: Rashard Aguilar on 09-12-2023 MCV (RBC) [Entitic vol] 94.4 fL 80-100 [facility] Monocytes Auto (Bld) [#/Vol] Ordered By: Rashard Aguilar on 09-12-2023 Monocytes (Bld) [#/Vol] 0.5 10*3/uL 0.0-0.8 [facility] Monocytes/100 WBC Auto (Bld) Ordered By: Rashard Aguilar on 09-12-2023 Monocytes/100 WBC (Bld) 8.5 % . [facility] Neutrophils Auto (Bld) [#/Vo l]Ordered By: Rashard Aguilar on 09-12-2023 Neutrophils (Bld) [#/Vol] 3.1 10*3/uL 1.8-7.7 [facility] Neutrophils/100 WBC Auto (Bl d)Ordered By: Rashard Aguilar on 09-12-2023 Neutrophils/100 WBC (Bld) 54.8 % . [facility] No Panel InformationOrdered By: Rashard Aguilar on 09-12-2023 Estimated GFR (CKD-EPI) > 60.0 mL/Min [facility] Creatinine Clearance (Chem N/A [facility] Nucleated erythrocytes [Pres ence] in Blood by Automated countOrdered By: Rashard Aguilar on 09-12-2023 Nucleated RBC Auto Ql (Bld) 0.2 /100{WBC} 0-0.5 [facility] Platelet mean volume Auto (B ld) [Entitic vol]Ordered By: Rashard Aguilar on 09-12-2023 Platelet mean volume (Bld) [Entitic vol] 7.6 fL 6.3-10.7 [facility] Platelets Auto (Bld) [#/Vol] Ordered By: Rashard Aguilar on 09-12-2023 Platelets (Bld) [#/Vol] 263 10*3/uL 150-450 [facility] Protein Auto test strip (U) [Mass/Vol]Ordered By: Rashard Aguilar on 09-12-2023 Protein (U) [Mass/Vol] See comment Negative [facility] Comment on above: Unable to obtain acc urate result due to color interference. RBC Auto (Bld) [#/Vol]Ordere d By: Rashard Aguilar on 09-12-2023 RBC (Bld) [#/Vol] 4.16 10*6/uL 3.60-5.00 [facility] Urine Cultureon 09-12-2023 Bacteria identified Cx Nom (U) <9,000 colonies/ml mixed bacterial skin contaminants 2 Days PERFORMED BY: [place] [address] PATHOLOGIST [employer] KEYON SERNA M.D. [facility] Comment on above: Performed By: #### C BC, ADDONUAPLUS, ESR, CUU, CRP, CREAT #### [facility] [address] [place] [address] [place] #### C4, C3 #### [facility] , Urine appearanceOrdered By: Rashard Aguilar on 09-12-2023 Appearance (U) Slightly cloudy Clear [facility] Urine bacteria detection by automated methodOrdered By: Rashard Aguilar on 09-12-2023 Bacteria Auto Ql (U) 2+ None Seen [facility] Urine colorOrdered By: Arthur Aguilar on 09-12-2023 Color (U) [place] Yellow [facility] Urine glucose measurement by automated test strip (mass/volume)Ordered By: Rashard Aguilar on 09-12-2023 Glucose Auto test strip (U) [Mass/Vol] See comment Normal [facility] Comment on above: Unable to obtain acc urate result due to color interference. Urine leukocyte esterase det ection by automated test stripOrdered By: Rashard Aguilar on 09-12-2023 Leukocyte esterase Auto test strip Ql (U) See comment Negative [facility] Comment on above: Unable to obtain acc urate result due to color interference. Urine nitrite detection by a utomated test stripOrdered By: Rashard Aguilar on 09-12-2023 Nitrite Auto test strip Ql (U) See comment Negative [facility] Comment on above: Unable to obtain acc urate result due to color interference. Urobilinogen Test strip (U) [Mass/Vol]Ordered By: Rashard Aguilar on 09-12-2023 Urobilinogen (U) [Mass/Vol] See comment Normal [facility] Comment on above: Unable to obtain acc urate result due to color interference. WBC Auto (Bld) [#/Vol]Ordere d By: Rashard Aguilar on 09-12-2023 WBC (Bld) [#/Vol] 5.7 10*3/uL 3.8-11.6 [facility] Yeast detection in urine sed iment by light microscopyOrdered By: Rashard Aguilar on 09-12-2023 Yeast LM Ql (Urine sed) Rare [HPF] None Seen [facility] pH Auto test strip (U)Ordere d By: Rashard Aguilar on 09-12-2023 pH (U) See comment 5.0-9.0 [facility] Comment on above: Unable to obtain [...] aorta Bladder stone BMI 29.0-29.9,adult CAD in [place] artery Disorder of vitamin D Essential hypertension [...] Father. Heart disease: Mother and Father. 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 She only started the medication after her heart attack and never exceeds the recommended dose. She visited [facility] due to elevated blood pressure and was checked out by a friend who is a retired nurse. She did not have a family doctor at the time. She sought help from [facility], which she does not find [...] has been treated by several doctors at [place] emergency room. Her nervous system has been [...] with voice recognition artificial intelligence software, specifically [employer], [employer] and or [employer]. Substitutions may have occurred with voice recognition and artificial intelligence software. ATTESTATION: Documentation services were performed after patient or guardian consented to allow [employer] to record this visit. DARVIN continuous improvement specialist and provider reviewed before signing. DARVIN: Padmini Cook. Follow-up No qualifying data available Problem List/Past Medical History Ongoing Adjustment disorder with anxious mood Anemia Anxiety Atherosclerosis aorta Bladder stone BMI 29.0-29.9,adult CAD in [place] artery Disorder of vitamin D Essential hypertension [...] Sciatica Procedu (more content not included)... Normal [facility] Comment on above: Result Comment: Elec tronically Signed By: Portillo PIPER, Rahul Varner\.br\Date and Time Signed: 08/27/23 20:52 EST\.br\Electronically Co-Signed By: Padmini Cook\.br\Date and Time Co-Signed: 08/15/23 16:49 EST URINE CULTURE, ROUTINEon Bacteria identified Cx Nom (U) No growth at 48 hours Normal [facility] Comment on above: Performed By: #### L [id number] #### [facility] [address] [place] [address] Urinalysis - AUTOMATEDon Appearance (U) clear [facility] Other Bilirubin Ql (U) Negative [facility] Other Color (U) orange [facility] Other Glucose Ql (U) 100 [facility] Other Hemoglobin Ql (U) small [employer] Other Ketones Ql (U) Negative [facility] Other Leukocyte esterase Test strip Ql (U) large [facility] Other Nitrite Ql (U) Positive [facility] Other pH (U) 5.0 [pH] [facility] Other Protein Ql (U) 100 [facility] Other Specific gravity (U) [Rel density] 1.010 [facility] Other Urobilinogen (U) [Mass/Vol] 1.0 mg/dL [facility] Other Urinalysis - AUTOMATED No rt [facility] Other Urine Cultureon 08-17-2023 Bacteria identified Cx Nom (U) <9,000 colonies/ml mixed bacterial skin contaminants 2 Days PERFORMED BY: [place] [address] PATHOLOGIST [employer] KEYON SERNA M.D. [facility] Comment on above: Performed By: #### C BC, ADDONUAPLUS, ESR, CUU, CRP, CREAT #### [facility] [address] [place] [address] #### C4, C3 #### [facility] , Bacteria identified Cx Nom (U) [facility] Other Urine culture routineOrdered By: Shayy Garza on 08-17-2023 Bacteria identified Cx Nom (U) 2 Days [facility] Physician Orderon 08-16-2023 Physician Order [id number] [facility] Ambulatory Visit Summaryon 1 2-26-2023 Ambulatory Visit [...] 11:00 AM EST With: [place] Where: [facility] Monday 12:15 PM EDT With: Rahul Salas [...] aorta Bladder stone BMI 29.0-29.9,adult CAD in [place] artery Disorder of vitamin D Essential hypertension [...] for choosing us for your care. Normal [facility] Urinalysis - AUTOMATEDon Appearance (U) clear [facility] Other Bilirubin Ql (U) Negative [facility] Other Color (U) bright orange [facility] Other Glucose Ql (U) Negative [facility] Other Hemoglobin Ql (U) Negative [facility] Other Ketones Ql (U) Negative [facility] Other Leukocyte esterase Test strip Ql (U) small [facility] Other Nitrite Ql (U) Positive [facility] Other pH (U) 6.0 [pH] [facility] Other Protein Ql (U) Negative [facility] Other Specific gravity (U) [Rel density] >1.010 [facility] Other Urobilinogen (U) [Mass/Vol] 0.2 mg/dL [facility] Other Urinalysis - AUTOMATED No rt [facility] Other Urine Cultureon 08-01-2023 Bacteria identified Cx Nom (U) Reason for Exam Dysuria Urine Reason for Exam: Dysuria : Urine No Growth 2 Days PERFORMED BY: [place] [address] PATHOLOGIST [employer]NO SERNA M.D. [facility] Comment on above: Performed By: #### C BC, ADDONUAPLUS, ESR, CUU, CRP, CREAT #### [facility] [address] [place] [address] #### C4, C3 #### [facility] , Bacteria identified Cx Nom (U) Scaffold Other Urine culture routineOrdered By: Mary Toure on 08-01-2023 Bacteria identified Cx Nom (U) No Growth 2 Days [facility] Outside Recordson 07-27-2023 Outside Records [id number]#1.0 0TIFF Normal [facility] Consultation Noteon 07-25-20 Consultation Note [id number]#1.0 0TIFF Normal [facility] ED Note-Physicianon 07-19-20 ED Note-Physician [id number]#1.0 0TIFF Normal [facility] RAD - MISCon 07-19-2023 RAD - MISC [id number]#1.0 0TIFF Normal [facility] Heart and Vascular Office/Cl inic Noteon 07-15-2023 [...] with voice recognition artificial intelligence software, specifically [employer], [employer] and or [employer]. Substitutions may have occurred due to the inherent limitations of voice recognition and artificial intelligence software. ATTESTATION: Documentation services were performed after the patient or guardian consented to allow [employer] to record this visit. DARVIN continuous improvement specialist and provider reviewed before signing. 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 Normal [facility] Comment on above: Result Comment: Elec tronically [...] at [facility] in [place], [place], and they were having problems with [...] with voice recognition artificial intelligence software, specifically [employer], [employer] and or [employer]. Substitutions may have occurred with voice recognition and artificial intelligence software. ATTESTATION: Documentation services were performed after patient or guardian consented to allow [employer] to record this visit. DARVIN continuous improvement specialist and provider reviewed before signing. DARVIN: Ruben Bernal. Follow-up No qualifying data available Problem List/Past Medical History Ongoing Anemia Anxiety Atherosclerosis aorta Bladder stone BMI 29.0-29.9,adult CAD in chinik artery Depression Disorder of vitamin D Essential [...] oral table (more content not included)... Normal [facility] Comment on above: Result Comment: Elec tronically Signed By: Portillo PIPER, Rahul Varner\.br\Date and Time Signed: 07/15/23 12:13 EST\.br\Electronically Co-Signed By: Ruben Bernal\.br\Date and Time Co-Signed: 05/26/23 12:49 EDT Consultation Noteon 07-06-20 Consultation Note [id number]#1.00 TIFF Normal [facility] Consultation Noteon 07-03-20 Consultation Note [id number] 30 [id number]#1.0 0TIFF Normal [facility] Medicine Office/Clini c Noteon 06-27-2023 Family Medicine [...] it. She voiced her dissatisfaction with her auto dismantler, having seen many but not finding one who would truly listen to her. She mentioned that one of them would just take blood samples every visit, making it difficult for her to communicate with him. She informed this auto dismantler about a blood test for her bladder that revealed 100 stones, but he dismissed it. However, he later acknowledged that it did indeed occur. She expressed her desire to seek a different auto dismantler due to these experiences. 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 [facility] Comment on above: Result Comment: Elec tronically Signed By: Lidya Almanzar MD\.br\Date and Time Signed: 06/27/23 08:27 EST\.br\Electronically Co-Signed By: Lucia Ramos\.br\Date and Time Co-Signed: 06/22/23 20:26 EDT Behavioral Health Sensitive Noteon 06-26-2023 Behavioral Health Sensitive Note Spoke with patient and she has decided to switch primary care physicians. Clinician has continued to offer services as needed. children's service worker will continue to monitor the situation. [facility] Ambulatory Visit Summaryon 1 08-22-2022 [...] Follow-Up Appointments Monday 9:30 AM EST Where: [facility] Heart and Vascular Office/Cl inic Noteon [...] her blood pressure. She consulted her regular art handler when her symptoms began. During the visit, she recalled an incident from 2 months ago when she felt chest pressure for a duration of 10 minutes. The art handler reassured her that her condition, including her blood pressure concern, was normal. Despite her open-heart surgery that took place on May 10, 2020, the art handler conveyed that the period since the procedure [...] up in 4 to 6 weeks in [place]. 1. Chest pain (R07.9: Chest pain, unspecified) Could represent angina we will order stress. We will also order echocardiogram 2. 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 3. HTN (hypertension) (I10: Essential (primary) hypertension) HTN: BP control with antihypertensives targeting blood pressure less than 130/80. If control is not currently achieved we will be adding additional antihypertensive or increasing dose. Stopping amlodipine Portions of this record may have been created with voice recognition artificial intelligence software, specifically [employer] (more content not included)... Normal [facility] Comment on above: Result Comment: Elec tronically [...] someone. She requires a refill of her Upperglade prescription. She was advised not to take benzodiazepines, which include Xanax and the Upperglade, simultaneously. She primarily uses Upperglade to alleviate joint pain and arthritis symptoms. She mentions being diagnosed with lupus at the age of 35 [address] Torres in [place]. She also indicates that she is currently [...] go ahead and send her to [facility] to help with medications. 2. Primary fibromyalgia syndrome (M79.7: Fibromyalgia) We will refill the patient's Upperglade for 1 month and we will see her back in a month. Discussed the pros and cons of using benzo and a narcotic at the same time. Patient understands the concerns. Patient has been a long-term user of the opioids and at this time is stable. 3. Long-term current use of opiate analgesic drug (Z79.891: FPC (current) use of opiate analgesic) As per # 2. 4. Irritable bowel syndrome (K58.9: Irritable bowel syndrome without diarrhea) (more content not included)... Normal [facility] Comment on above: Result Comment: Elec tronically Signed By: Lidya Almanzar MD\.br\Date and Time Signed: 06/06/23 07:46 EDT\.br\Electronically Co-Signed By: Lucia Ramos\.br\Date and Time Co-Signed: 05/30/23 17:17 EDT Physician Orderon 06-02-2023 Physician Order [id number]#1.0 0TIFF [facility] Medication Consenton 023 Medication Consent [id number]#1.0 0TIFF [facility] Physician Referralon 023 Physician Referral [id number] 03 [id number]#1. 00TIFF [facility] Ambulatory Visit Summaryon 1 Ambulatory [...] Portillo PIPER, Rahul Varner Where: [facility] [place] Monday 1:00 PM EDT With: [place] Where: [facility] Monday 2:40 PM EST With: Lidya Almanzar MD Where: [facility] Invalid Interpretation Code [address] [place] [address]- \.br \ Someone Will Contact You Regarding These Appointments \.br\ [facility] External Ambulatory Referral, Psychiatry, Community health services in [place]., 05/30/23 14:54:00 EDT, Anxiety [facility] Pre-Visit Planningon 023 Pre-Visit Planning - From: Yuliya ORTEZ, Kim To: Lidya Almanzar MD; Sent: 05/29/2023 13:24:19 EDT Subject: Pre-Visit Planning Due Date/Time: 05/29/2023 13:24:00 EDT Caller Name: TEA RAHMAN; Caller Number: , De Dr. Almanzar, *Based on your response below, can you please update the chronic problem list and address during this visit if appropriate?* During a pre-visit planning chart review, I noted the following documentation in the medical record: Current medications: Hydroxychloroquine 12/21/2022 office note-When the patient was diagnosed with lupus, she was referred to a auto dismantler in [place]. She tried a different auto dismantler in [place] where she stayed until that provider retired. [...] very fatigued. 03/20/2023 office note- has a auto dismantler not working out for her wants to find a new one needs her proctofoam refilled for the hemorrhoids and also dr santana gave her hyoscamine for blow outs but refills ran out as she doesn't use all the time, can she get more recent phq9-15 recent leanne-15 urine collected and processed 03/21/2023 [facility] page 1 has major depressive disorder single episode mild and systemic lupus erythematosus 03/28/2023 office note-Patient is taking half a tablet of Upperglade twice daily and steroids for her fibromyalgia, lupus, and arthritis. She reports continued pain in her shoulders and upper back. She was unable to receive epidural in the sciatic nerve due to miscommunication regarding the appointment. She requests prescription of hydroxychloroquine to take as needed for flares. She is looking for a auto dismantler. Based on your medical judgment, can you [...] feel free to contact me at extension [phone]. Thank you! Kim Dwyer, SUREKHAN, RN, CCM, CCDS, CCDS-O Invalid Interpretation Code [address] [facility] Pre-Visit Planning - From: Yuliya ORTEZ, Kim To: Yohan PPIER, Lidya Lal; Sent: 05/29/2023 13:16:19 EDT Subject: Pre-Visit Planning Due Date/Time: 05/29/2023 13:16:00 EDT Caller Name: TEA RAHMAN; Caller Number: Olga Lidia , M De Dr. Almanzar, *Based on your response below, [...] as well as the Xanax PRN. 03/21/2023 [facility] page 1 has major depressive disorder [...] feel free to contact me at extension [phone]. Thank you! Kim Dwyer, SUREKHAN, RN, CCM, CCDS, CCDS-O Invalid Interpretation Code [address] [facility] Physician Orderon 05-26-2023 Physician Order [id number]#1. 00TIFF Normal [facility] NM Myocardial Spect Rest/Str ess 1 Dayon [...] Stress Dose (mCi Tc99M Cardiolite): 30.0 Normal [facility] Stress EKG Tracingson 2022 Stress EKG Tracings [id number] 02 [id number]#1. 00CD:127 [facility] Consent for Treatmenton 04-22 Consent for Treatment [id number] [id number]#1.0 0CD:127 [facility] Consent for Treatmenton 04-21 Consent for Treatment [id number] [id number]#1.0 0CD:127 Normal [facility] Consultation Noteon 05-08-20 23 Consultation Note [id number] 90 [id number]#1.0 0CD:127 [facility] Consultation Note [id number]#1.00 CD:127 [facility] Urine Cultureon 05-04-2023 Bacteria identified Cx Nom (U) Reason for Exam Dysuria Urine 50,000 colonies/ml mixed bacterial skin contaminants 2 Days PERFORMED BY: [place] [id number] PATHOLOGIST [employer] KEYON SERNA M.D. Normal [facility] Comment on above: Performed By: #### C UU #### [place] [id number] [facility] Physician Orderon 04-21-2023 Physician Order [id number]#1.0 0CD:127 Normal [facility] Physician Referralon 023 Physician Referral [id number] 02 [id number]#1. 00CD:127 Normal [facility] Family Medicine Office/Clini c Noteon 04-17-2023 Family [...] Norvasc. Patient will follow-up with cardiology. Ordered: [facility] Internal Ambulatory Referral 2. Post-nasal drip (R09.82: Postnasal drip) ? We will have the patient try the Zyrtec again. Discussed how the Zyrtec I do not believe is actually messing with her stomach but more the mucus. Ordered: [facility] Internal Ambulatory Referral 3. 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 We will send to cardiology for further recommendations. Ordered: [facility] Internal Ambulatory Referral 4. BMI 28.0-28.9,adult (Z68.28: Body mass index [BMI] 28.0-28.9, adult) BMI education given. Ordered: Body Mass Index (BMI) documented 3008F Current tobacco non-user 1036F Depression Screening Negative 3352F [facility] Internal Ambulatory Referral Most recent diastolic blood pressure <80 mm Hg 3078F Patient screen for fall risk: no falls in last year or 1 fall with no injury in last year 1101F Systolic BP <130 mm Hg (Most Recent) 3074F 5. Overweight (E66.3: Overweight) As above. 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 [facility] Comment on above: Result Comment: Elec tronically Signed By: Yohan PIPER, Lidya Gómez.br\Date and Time Signed: 04/17/23 18:28 EDT Consultation Noteon 04-12-20 Consultation Note 104.. 80 [id number]#1.0 0CD:127 [facility] Consultation Note [id number]. [id number]#1.0 0CD:127 [facility] Family Medicine Office/Clini c Noteon [...] Patient is taking half a tablet of Upperglade twice daily and steroids for her fibromyalgia, lupus, and arthritis. She reports continued pain in her shoulders and upper back. She was unable to receive epidural in the sciatic nerve due to miscommunication regarding the appointment. She requests prescription of hydroxychloroquine to take as needed for flares. She is looking for a auto dismantler. The adult male reports the patient presented [...] well controlled with a half of a Upperglade a day. 3. 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 4. BMI 28.0-28.9,adult (Z68.28: Body mass index [BMI] 28.0-28.9, adult) BMI education given. 5. OA - Osteoarthritis of knee (M17.10: Unilateral primary osteoarthritis, unspecified knee) Again, patient uses the steroids to help and patient is doing well with the use of half a Upperglade twice a day. 6. Overweight (E66.3: Overweight) [...] with voice recognition artificial intelligence software, specifically [employer], [employer] and or [employer]. Substitutions may have occurred due to the inher (more content not included)... [facility] Comment on above: Result Comment: Elec tronically Signed By: Lidya Almanzar MD\.br\Date and Time Signed: 03/29/23 09:38 EDT\.br\Electronically Co-Signed By: Lucia Ramos\.br\Date and Time Co-Signed: 03/28/23 19:25 EDT RAD - MISCon 03-29-2023 RAD - IsentropicC [id number] 80 [id number]#1.0 0CD:127 [facility] Ambulatory Visit Summaryon 0 03-28-2023 [...] PM EDT With: Lidya Almanzar MD Where: [facility] Ambulatory Visit Summary TEA RAHMAN :1945 [...] PM EDT With: Lidya Almanzar MD Where: [facility] RAD - MISCon 03-21-2023 [facility] MIS [id number]#1.0 0CD:127 Normal [facility] Ambulatory Visit Summaryon 0 03-20-2023 Ambulatory Visit Summary TEA RAHMAN :1945 Visit Date:03/20/2023 Ambulatory Visit Instructions Your Diagnosis Abdominal pain Primary fibromyalgia syndrome BMI 29.0-29.9,adult Over weight Tests Performed Urnls Dip Stick Non-Auto w/o Micrscpy POC 04523 Your Care Team Attending Physician - Lidya [...] PM EDT With: Lidya Almanzar MD Where: [facility] Family Medicine Office/Clini c Noteon 03-20-2023 [...] wasn't formed does have hemorrhoids has a auto dismantler not working out for her wants to [...] ProctoFoam for Hemorrhoids - Would like another auto dismantler. Review of Systems PHQ Score Initial Depression [...] Urnls Dip Stick Non-Auto w/o Micrscpy POC 40410 2. Primary fibromyalgia syndrome (M79.7: Fibromyalgia) - Will do a small steroid burst. - Then when patient finds a better Retail Sales Consultant we will refer Ordered: methylPREDNISolone, = 1 packet(s), Oral, As Directed, as directed on package labeling, X 6 day(s), # 21 tab(s), Refills(s) 0, Pharmacy: [facility] #[id number], 167, cm, 03/20/23 11:45:00 EDT, Height/Length Dosing, 80.9, kg, 03/20/23 11:45:00 EDT, Weight Dosing 3. Hemorrhoids (K64.9: Unspecified hemorrhoids) - Proctofoam 4. BMI 29.0-29.9,adult (Z68.29: Body mass index [BMI] 29.0-29.9, adult) - BMI education given Ordered: methylPREDNISolone, = 1 packet(s), Oral, As Directed, as directed on package labeling, X 6 day(s), # 21 tab(s), Refills(s) 0, Pharmacy: [facility] #[id number], 167, cm, 03/20/23 11:45:00 EDT, Height/Length Dosing, [...] day(s), # 21 tab(s), Refills(s) 0, Pharmacy: [facility] #[id number], 167, cm, 03/20/23 11:45:00 EDT, Height/Length Dosing, [...] elías, Rectal, TID, 10 gram, Refill(s) 0, [facility] #[id number], 167, cm, 03/20/23 11:45:00 EDT, Height/Length Dosing, [...] acetaminophen-hydrocod one (more content not included)... Normal [facility] Comment on above: Result Comment: Elec tronically Signed By: Yohan PIPER, Lidya Lal\.br\Date and Time Signed: 03/20/23 12:22 EDT Consultation Noteon 03-09-20 Consultation Note [id number]#1.0 0CD:127 Normal [facility] [place] [facility] XR chest 2V*on 03-02-2023 XR chest 2V* [facility] [address] [place] [address] [place] [address] XRay Report Signed Patient: Tea Rahman MR#: [id number] : 1945 Acct:[id number] Age/Sex: 77 / F ADM Date: 03/02/23 Loc: ICXD Room: Type: [facility] Attending Dr: Rashard Aguilar MD Copies [...] Zen Yo M.D.03/02/2023 4:11 PM Dictation Location: [place] [address] Transcribed By: [facility] 03/02/23 161 Dictated By: Zen Yo DO 03/02/23 1610 Signed By: 03/02/23 161 Normal [facility] Consultation Noteon 02-07-20 Consultation Note [id number]#1.0 0CD:127 Normal [facility] Amorphous urine sedimentOrde red By: Rashard Aguilar on 01-24-2023 Amorphous sediment LM Ql (Urine sed) See comment Negative [facility] Comment on above: Unable to obtain acc urate result due to color interference. Automated epithelial cells c ount in urine sediment (number/area)Ordered By: Rashard Aguilar on 01-24-2023 Epithelial cells Auto (Urine sed) [#/Area] 5-9 [HPF] 0-2 [facility] Automated erythrocytes count in urine sediment (number/area)Ordered By: Rashard Aguilar on 01-24-2023 RBC Auto (Urine sed) [#/Area] None seen [HPF] 0-4 [facility] Automated leukocytes count i n urine sediment (number/area)Ordered By: Rashard Aguilar on 01-24-2023 WBC Auto (Urine sed) [#/Area] 5-9 [HPF] 0-4 [facility] Automated urine specific gra vity by refractometryOrdered By: Rashard Aguilar on 01-24-2023 Specific gravity Refractometry automated (U) [Rel density] 1.015 1.001-1.030 [facility] Basophils Auto (Bld) [#/Vol] Ordered By: Rashard Aguilar on 01-24-2023 Basophils (Bld) [#/Vol] 0.0 10*3/uL 0.0-0.2 [facility] Basophils/100 WBC Auto (Bld) Ordered By: Rashard Aguilar on 01-24-2023 Basophils/100 WBC (Bld) 0.5 % . [facility] Bilirubin Auto test strip Ql (U)Ordered By: Rashard Aguilar on 01-24-2023 Bilirubin Ql (U) See comment Negative [facility] Comment on above: Unable to obtain acc urate result due to color interference. C reactive protein [Mass/vol ume] in Serum or PlasmaOrdered By: Rashard Aguilar on 01-24-2023 CRP [Mass/Vol] 0.6 mg/dL 0.0-0.5 [facility] C-Reactive Proteinon 023 C-Reactive Protein 0.6 mg/dL High 0.0-0.5 [facility] Comment on above: Result Comment: PERF ORMED BY: [place] [address] PATHOLOGIST [employer] KEYON SERNA M.D. Performed By: #### C BC, ADDONUAPLUS, ESR, CUU, CRP, CREAT #### [address] #### C4, C3 #### [facility] , Complement C3on 01-24-2023 Complement C3 162 mg/dL Normal 82-167 [facility] Comment on above: Result Comment: Perf ormed at: - [facility] [address] [id number] Exhibits Coordinator: Paul Dumont PhD, Phone: [phone] Performed By: #### C BC, ADDONUAPLUS, ESR, CUU, CRP, CREAT #### [address] #### C4, C3 #### [facility] , Complement C4on 01-24-2023 Complement C4 36 mg/dL Normal 12-38 [facility] Comment on above: Result Comment: PERF ORMED BY: [place] [address] PATHOLOGIST [employer] KEYON SERNA M.D. Performed By: #### C BC, ADDONUAPLUS, ESR, CUU, CRP, CREAT #### [address] #### C4, C3 #### [facility] , Complete Blood Count Auto Di ffon 01-24-2023 Basophils (Bld) [#/Vol] 0.0 10*3/uL Normal 0.0-0.2 [facility] Comment on above: Performed By: #### C BC, ADDONUAPLUS, ESR, CUU, CRP, CREAT #### [place] [address] [place] #### C4, C3 #### [facility] , Basophils/100 WBC (Bld) 0.5 % Normal . [facility] Comment on above: Performed By: #### C BC, ADDONUAPLUS, ESR, CUU, CRP, CREAT #### [address] #### C4, C3 #### [facility] , Eosinophils (Bld) [#/Vol] 0.2 10*3/uL Normal 0.0-0.45 [facility] Comment on above: Performed By: #### C BC, ADDONUAPLUS, ESR, CUU, CRP, CREAT #### [place] [address] [place] #### C4, C3 #### [facility] , Eosinophils/100 WBC (Bld) 3.3 % Normal . [facility] Comment on above: Performed By: #### C BC, ADDONUAPLUS, ESR, CUU, CRP, CREAT #### [place] [address] [place] #### C4, C3 #### [facility] , Erythrocyte distribution width (RBC) [Ratio] 14.2 % Normal 11.9-15.3 [facility] Comment on above: Performed By: #### C BC, ADDONUAPLUS, ESR, CUU, CRP, CREAT #### [place] [address] [place] #### C4, C3 #### [facility] , Hematocrit (Bld) [Volume fraction] 40.7 % Normal 34.0-46.4 [facility] Comment on above: Performed By: #### C BC, ADDONUAPLUS, ESR, CUU, CRP, CREAT #### [address] #### C4, C3 #### [facility] , Hemoglobin (Bld) [Mass/Vol] 13.2 g/dL Normal 11.8-15.4 [facility] Comment on above: Performed By: #### C BC, ADDONUAPLUS, ESR, CUU, CRP, CREAT #### [address] #### C4, C3 #### [facility] , Lymphocytes (Bld) [#/Vol] 1.9 10*3/uL Normal 1.00-4.8 [facility] Comment on above: Performed By: #### C BC, ADDONUAPLUS, ESR, CUU, CRP, CREAT #### [place] [address] [place] #### C4, C3 #### [facility] , Lymphocytes/100 WBC (Bld) 30.8 % Normal . [facility] Comment on above: Performed By: #### C BC, ADDONUAPLUS, ESR, CUU, CRP, CREAT #### [place] [address] [place] #### C4, C3 #### [facility] , MCH (RBC) [Entitic mass] 29.5 pg Normal 24.7-34.3 [facility] Comment on above: Performed By: #### C BC, ADDONUAPLUS, ESR, CUU, CRP, CREAT #### [place] [address] [place] #### C4, C3 #### [facility] , MCV (RBC) [Entitic vol] 90.9 fL Normal 80-100 [facility] Comment on above: Performed By: #### C BC, ADDONUAPLUS, ESR, CUU, CRP, CREAT #### [address] #### C4, C3 #### [facility] , Mean Corpuscular HGB Conc 32.5 g/dL Normal 32.0-35.0 [facility] Comment on above: Performed By: #### C BC, ADDONUAPLUS, ESR, CUU, CRP, CREAT #### [place] [address] [place] #### C4, C3 #### [facility] , Monocytes (Bld) [#/Vol] 0.4 10*3/uL Normal 0.0-0.8 [facility] Comment on above: Performed By: #### C BC, ADDONUAPLUS, ESR, CUU, CRP, CREAT #### [address] #### C4, C3 #### [facility] , Monocytes/100 WBC (Bld) 7.1 % Normal . [facility] Comment on above: Performed By: #### C BC, ADDONUAPLUS, ESR, CUU, CRP, CREAT #### [place] [address] [place] #### C4, C3 #### [facility] , Neutrophils (Bld) [#/Vol] 3.7 10*3/uL Normal 1.8-7.7 [facility] Comment on above: Performed By: #### C BC, ADDONUAPLUS, ESR, CUU, CRP, CREAT #### [place] [address] [place] #### C4, C3 #### [facility] , Neutrophils/100 WBC (Bld) 58.3 % Normal . [facility] Comment on above: Performed By: #### C BC, ADDONUAPLUS, ESR, CUU, CRP, CREAT #### [facility] [address] [place] [address] [place] #### C4, C3 #### [facility] , NRBC% 0.1 /100{WBC} Normal 0-0.5 [facility] Comment on above: Performed By: #### C BC, ADDONUAPLUS, ESR, CUU, CRP, CREAT #### [address] #### C4, C3 #### [facility] , Platelet mean volume (Bld) [Entitic vol] 7.3 fL Normal 6.3-10.7 [facility] Comment on above: Performed By: #### C BC, ADDONUAPLUS, ESR, CUU, CRP, CREAT #### [place] [address] [place] #### C4, C3 #### [facility] , Platelets (Bld) [#/Vol] 239 10*3/uL Normal 150-450 [facility] Comment on above: Performed By: #### C BC, ADDONUAPLUS, ESR, CUU, CRP, CREAT #### [place] [address] [place] #### C4, C3 #### [facility] , RBC (Bld) [#/Vol] 4.48 10*6/uL Normal 3.60-5.00 [facility] Comment on above: Performed By: #### C BC, ADDONUAPLUS, ESR, CUU, CRP, CREAT #### [place] [address] [place] #### C4, C3 #### [facility] , WBC (Bld) [#/Vol] 6.3 10*3/uL Normal 3.8-11.6 [facility] Comment on above: Performed By: #### C BC, ADDONUAPLUS, ESR, CUU, CRP, CREAT #### [facility] [address] [place] [address] [place] #### C4, C3 #### [facility] , Creatinineon 01-24-2023 Creatinine [Mass/Vol] 0.96 mg/dL Normal 0.60-1.20 [facility] Comment on above: Performed By: #### C BC, ADDONUAPLUS, ESR, CUU, CRP, CREAT #### [address] #### C4, C3 #### [facility] , GFR/1.73 sq M.predicted MDRD (S/P/Bld) [Vol rate/Area] mL/min/{1.73_m2} Normal [facility] Comment on above: Performed By: #### C BC, ADDONUAPLUS, ESR, CUU, CRP, CREAT #### [place] [address] [place] #### C4, C3 #### [facility] , Creatinine [Mass/volume] in Serum or PlasmaOrdered By: Rashard Aguilar on 01-24-2023 Creatinine [Mass/Vol] 0.96 mg/dL 0.60-1.20 [facility] Dipstick and Microscopicon 0 01-24-2023 Appearance (U) Slightly Cloudy Critically abnormal Clear [facility] Comment on above: Order Comment: Name Collection Type:: Clean-Voided Midstream Performed By: #### C BC, ADDONUAPLUS, ESR, CUU, CRP, CREAT #### [facility] [address] [place] [address] [place] #### C4, C3 #### [facility] , Bacteria,Urine 1+ High None Seen [facility] Comment on above: Order Comment: Name Collection Type:: Clean-Voided Midstream Performed By: #### C BC, ADDONUAPLUS, ESR, CUU, CRP, CREAT #### [facility] [address] [place] [address] #### C4, C3 #### [facility] , Bilirubin,Urine Normal Negative [facility] Comment on above: Order Comment: Name Collection Type:: Clean-Voided Midstream Result Comment: Unab le to obtain accurate result due to color interference. Performed By: #### C BC, ADDONUAPLUS, ESR, CUU, CRP, CREAT #### [facility] [address] [place] [address] [place] #### C4, C3 #### [facility] , Color (U) [place] Critically abnormal Yellow [facility] Comment on above: Order Comment: Name Collection Type:: Clean-Voided Midstream Performed By: #### C BC, ADDONUAPLUS, ESR, CUU, CRP, CREAT #### [place] [address] [place] #### C4, C3 #### [facility] , Glucose Ql (U) Normal Normal [facility] Comment on above: Order Comment: Name Collection Type:: Clean-Voided Midstream Result Comment: Unab le to obtain accurate result due to color interference. Performed By: #### C BC, ADDONUAPLUS, ESR, CUU, CRP, CREAT #### [place] [address] [place] #### C4, C3 #### [facility] , Ketones Ql (U) Normal Negative [facility] Comment on above: Order Comment: Name Collection Type:: Clean-Voided Midstream Result Comment: Unab le to obtain accurate result due to color interference. Performed By: #### C BC, ADDONUAPLUS, ESR, CUU, CRP, CREAT #### [facility] [address] [place] [address] #### C4, C3 #### [facility] , Leukocyte esterase Test strip Ql (U) Normal Negative [facility] Comment on above: Order Comment: Name Collection Type:: Clean-Voided Midstream Result Comment: Unab le to obtain accurate result due to color interference. Performed By: #### C BC, ADDONUAPLUS, ESR, CUU, CRP, CREAT #### [address] #### C4, C3 #### [facility] , Nitrite,Urine Normal Negative [facility] Comment on above: Order Comment: Name Collection Type:: Clean-Voided Midstream Result Comment: Unab le to obtain accurate result due to color interference. Performed By: #### C BC, ADDONUAPLUS, ESR, CUU, CRP, CREAT #### [address] #### C4, C3 #### [facility] , Occult Blood,Urine Normal Negative [facility] Comment on above: Order Comment: Name Collection Type:: Clean-Voided Midstream Result Comment: Unab le to obtain accurate result due to color interference. Performed By: #### C BC, ADDONUAPLUS, ESR, CUU, CRP, CREAT #### [address] #### C4, C3 #### [facility] , pH,Urine Normal 5.0-9.0 [facility] Comment on above: Order Comment: Name Collection Type:: Clean-Voided Midstream Result Comment: Unab le to obtain accurate result due to color interference. Performed By: #### C BC, ADDONUAPLUS, ESR, CUU, CRP, CREAT #### [address] #### C4, C3 #### [facility] , Protein,Urine Normal Negative [facility] Comment on above: Order Comment: Name Collection Type:: Clean-Voided Midstream Result Comment: Unab le to obtain accurate result due to color interference. Performed By: #### C BC, ADDONUAPLUS, ESR, CUU, CRP, CREAT #### [facility] [address] [place] [address] #### C4, C3 #### [facility] , RBC,Urine None Seen Normal 0-4 [facility] Comment on above: Order Comment: Name Collection Type:: Clean-Voided Midstream Performed By: #### C BC, ADDONUAPLUS, ESR, CUU, CRP, CREAT #### [address] #### C4, C3 #### [facility] , Specificy [place],Urine 1.015 Normal 1.001-1.030 [facility] Comment on above: Order Comment: Name Collection Type:: Clean-Voided Midstream Performed By: #### C BC, ADDONUAPLUS, ESR, CUU, CRP, CREAT #### [address] #### C4, C3 #### [facility] , Squamous Epithelial Cell,Urine 5-9 High 0-2 [facility] Comment on above: Order Comment: Name Collection Type:: Clean-Voided Midstream Performed By: #### C BC, ADDONUAPLUS, ESR, CUU, CRP, CREAT #### [place] [address] [place] #### C4, C3 #### [facility] , Urobilinogen,Urine Normal Normal [facility] Comment on above: Order Comment: Name Collection Type:: Clean-Voided Midstream Result Comment: Unab le to obtain accurate result due to color interference. Performed By: #### C BC, ADDONUAPLUS, ESR, CUU, CRP, CREAT #### [place] [address] [place] #### C4, C3 #### [facility] , WBC,Urine 5-9 High 0-4 [facility] Comment on above: Order Comment: Name Collection Type:: Clean-Voided Midstream Performed By: #### C BC, ADDONUAPLUS, ESR, CUU, CRP, CREAT #### [address] #### C4, C3 #### [facility] , Yeast,Urine 3+ Critically abnormal None Seen [facility] Comment on above: Order Comment: Name Collection Type:: Clean-Voided Midstream Result Comment: PERF ORMED BY: [place] [address] PATHOLOGIST [employer] KEYON SERNA M.D. Performed By: #### C BC, ADDONUAPLUS, ESR, CUU, CRP, CREAT #### [address] #### C4, C3 #### [facility] , Eosinophils Auto (Bld) [#/Vo l]Ordered By: Rashard Aguilar on 01-24-2023 Eosinophils (Bld) [#/Vol] 0.2 10*3/uL 0.0-0.45 [facility] Eosinophils/100 WBC Auto (Bl d)Ordered By: Rashard Aguilar on 01-24-2023 Eosinophils/100 WBC (Bld) 3.3 % . [facility] Erythrocyte Sedimentation Ra duyen 01-24-2023 ESR (Bld) [Velocity] 38 mm/h High 0-29 [facility] Comment on above: Result Comment: PERF ORMED BY: [place] [address] PATHOLOGIST [employer] KEYON SERNA M.D. Performed By: #### C BC, ADDONUAPLUS, ESR, CUU, CRP, CREAT #### [address] #### C4, C3 #### [facility] , Erythrocyte distribution wid th Auto (RBC) [Ratio]Ordered By: Rashard Aguilar on 01-24-2023 Erythrocyte distribution width (RBC) [Ratio] 14.2 % 11.9-15.3 [facility] Erythrocyte sedimentation ra te by Photometric methodOrdered By: Rashard Aguilar on 01-24-2023 ESR Photometric method (Bld) [Velocity] 38 mm/hr 0-29 [facility] Hematocrit Auto (Bld) [Volum e fraction]Ordered By: Rashard Aguilar on 01-24-2023 Hematocrit (Bld) [Volume fraction] 40.7 % 34.0-46.4 [facility] Hemoglobin [Mass/volume] in BloodOrdered By: Rashard Aguilar on 01-24-2023 Hemoglobin (Bld) [Mass/Vol] 13.2 g/dL 11.8-15.4 [facility] Ketones Test strip (U) [Mass /Vol]Ordered By: Rashard Aguilar on 01-24-2023 Ketones (U) [Mass/Vol] See comment Negative [facility] Comment on above: Unable to obtain acc urate result due to color interference. Leukocytes [#/volume] correc edwige for nucleated erythrocytes in Blood by Automated counOrdered By: Rashard Aguilar on 01-24-2023 WBC corrected for nucl RBC Auto (Bld) [#/Vol] 6.3 10*3/uL 3.8-11.6 [facility] Lymphocytes Auto (Bld) [#/Vo l]Ordered By: Rashard Aguilar on 01-24-2023 Lymphocytes (Bld) [#/Vol] 1.9 10*3/uL 1.00-4.8 [facility] Lymphocytes/100 WBC Auto (Bl d)Ordered By: Rashard Aguilar on 01-24-2023 Lymphocytes/100 WBC (Bld) 30.8 % . [facility] MCH Auto (RBC) [Entitic mass ]Ordered By: Rashard Aguilar on 01-24-2023 MCH (RBC) [Entitic mass] 29.5 pg 24.7-34.3 [facility] MCHC Auto (RBC) [Mass/Vol]Or dered By: Rashard Aguilar on 01-24-2023 MCHC (RBC) [Mass/Vol] 32.5 g/dL 32.0-35.0 [facility] MCV Auto (RBC) [Entitic vol] Ordered By: Rashard Aguilar on 01-24-2023 MCV (RBC) [Entitic vol] 90.9 fL 80-100 [facility] Monocytes Auto (Bld) [#/Vol] Ordered By: Rashard Aguilar on 01-24-2023 Monocytes (Bld) [#/Vol] 0.4 10*3/uL 0.0-0.8 [facility] Monocytes/100 WBC Auto (Bld) Ordered By: Rashard Aguilar on 01-24-2023 Monocytes/100 WBC (Bld) 7.1 % . [facility] Neutrophils Auto (Bld) [#/Vo l]Ordered By: Rashard Aguilar on 01-24-2023 Neutrophils (Bld) [#/Vol] 3.7 10*3/uL 1.8-7.7 [facility] Neutrophils/100 WBC Auto (Bl d)Ordered By: Rashard Aguilar on 01-24-2023 Neutrophils/100 WBC (Bld) 58.3 % . [facility] No Panel InformationOrdered By: Rashard Aguilar on 01-24-2023 Estimated GFR (CKD-EPI) > 60.0 mL/Min [facility] Creatinine Clearance (Chem N/A [facility] Nucleated erythrocytes [Pres ence] in Blood by Automated countOrdered By: Rashard Aguilar on 01-24-2023 Nucleated RBC Auto Ql (Bld) 0.1 /100{WBC} 0-0.5 [facility] Platelet mean volume Auto (B ld) [Entitic vol]Ordered By: Rashard Aguilar on 01-24-2023 Platelet mean volume (Bld) [Entitic vol] 7.3 fL 6.3-10.7 [facility] Platelets Auto (Bld) [#/Vol] Ordered By: Rashard Aguilar on 01-24-2023 Platelets (Bld) [#/Vol] 239 10*3/uL 150-450 [facility] Protein Auto test strip (U) [Mass/Vol]Ordered By: Rashard Aguilar on 01-24-2023 Protein (U) [Mass/Vol] See comment Negative F [facility] Comment on above: Unable to obtain acc urate result due to color interference. RBC Auto (Bld) [#/Vol]Ordere d By: Rashard Aguilar on 01-24-2023 RBC (Bld) [#/Vol] 4.48 10*6/uL 3.60-5.00 [facility] Serum or plasma complement C 3 measurement (mass/volume)Ordered By: Rashard Aguilar on 01-24-2023 Complement C3 [Mass/Vol] 162 mg/dL 82-167 [facility] Comment on above: Performed at: [place] [id number] Director: Paul Dumont PhD, Phone: [phone] Serum or plasma complement C 4 measurement (mass/volume)Ordered By: Rashard Aguilar on 01-24-2023 Complement C4 [Mass/Vol] 36 mg/dL 12-38 [facility] Urine Cultureon 01-24-2023 Bacteria identified Cx Nom (U) ORGANISM: Filomena glabrata (O:CANGLA) [place] Count 20,000 PERFORMED BY: [place] [address] PATHOLOGIST [employer] KEYON SERNA M.D. [facility] Comment on above: Performed By: #### C BC, ADDONUAPLUS, ESR, CUU, CRP, CREAT #### [facility] [address] [place] [address] [place] #### C4, C3 #### [facility] , Urine appearanceOrdered By: Rashard Aguilar on 01-24-2023 Appearance (U) Slightly cloudy Clear [facility] Urine bacteria detection by automated methodOrdered By: Rashard Aguilar on 01-24-2023 Bacteria Auto Ql (U) 1+ None Seen [facility] Urine colorOrdered By: Arthur Aguilar on 01-24-2023 Color (U) [place] Yellow [facility] Urine culture routineOrdered By: Rashard Aguilar on 01-24-2023 Bacteria identified Cx Nom (U) Filomena glabrata [facility] Urine glucose measurement by automated test strip (mass/volume)Ordered By: Rashard Aguilar on 01-24-2023 Glucose Auto test strip (U) [Mass/Vol] See comment Normal [facility] Comment on above: Unable to obtain acc urate result due to color interference. Urine leukocyte esterase det ection by automated test stripOrdered By: Rashard Aguilar on 01-24-2023 Leukocyte esterase Auto test strip Ql (U) See comment Negative [facility] Comment on above: Unable to obtain acc urate result due to color interference. Urine nitrite detection by a utomated test stripOrdered By: Rashard Aguilar on 01-24-2023 Nitrite Auto test strip Ql (U) See comment Negative [facility] Comment on above: Unable to obtain acc urate result due to color interference. Urobilinogen Test strip (U) [Mass/Vol]Ordered By: Rashard Aguilar on 01-24-2023 Urobilinogen (U) [Mass/Vol] See comment Normal [facility] Comment on above: Unable to obtain acc urate result due to color interference. WBC Auto (Bld) [#/Vol]Ordere d By: Rashard Aguilar on 01-24-2023 WBC (Bld) [#/Vol] 6.3 10*3/uL 3.8-11.6 [facility] Yeast detection in urine sed iment by light microscopyOrdered By: Rashard Aguilar on 01-24-2023 Yeast LM Ql (Urine sed) 3+ [HPF] None Seen [facility] pH Auto test strip (U)Ordere d By: Rashard Aguilar on 01-24-2023 pH (U) See comment 5.0-9.0 [facility] Comment on above: Unable to obtain [...] with bladders stones, pt see's urology in [place] History of Present Illness Tea Rahman is a 77-year-old female here to establish care as a prior patient of Dr. Santana. She is accompanied by her today. 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 She worked in [place] before retiring. Mrs. Rahman has a history of bladder stones and is followed by a urologist in [place]. She had a scope completed 10/21/2022 and, per patient, they stopped counting stones. She had also been followed by a urologist in [place]. When he moved his practice to [place], [place], she followed him for care. Due [...] with lupus, she was referred to a auto dismantler in [place]. She tried a different auto dismantler in [place] where she stayed until that provider retired. [...] Mrs. Rahman takes Xanax for anxiety and Upperglade for joint pain as sparingly as possible. Over the past few years, she has been taking a half a Xanax and a half a Upperglade every morning as well as at night. [...] fibromyalgia syndrome (M79.7: Fibromyalgia) Patient is on Upperglade for this. Again, discussed laws and regulations with this medication. She will comply. Will follow as needed. 5. Essential hypertension (I10: Essential (primary) hypertension) Patient is at goal at this time. Continue to monitor. 6. Long-term current use of opiate analgesic drug (Z79.891: [facility]PC (current) use of opiate analgesic) We will continue to monitor use of Upperglade. 7. Bladder stone (N21.0: Calculus in bladder) Will refer to urology for second opinion. Will see the patient back in 2 months and we will readjust the patient's medication as needed. Documentation services were performed after patient or guardian consented to allow [employer] to record this visit. DARVIN continuous improvement specialist and provider reviewed before signing. DARVIN: [...] and depressive (more content not included)... Normal [facility] Comment on above: Result Comment: Elec tronically Signed By: Lidya Almanzar MD\.br\Date and Time Signed: 12/22/22 14:14 EDT\.br\Electronically Co-Signed By: India Aguilar\.br\Date and Time Co-Signed: 12/21/22 17:26 EDT Physician Referralon 023 Physician Referral [id number]. 00CD:127 [facility] Lab Reportson 12-21-2022 Lab Reports [id number] 0CD:127 [facility] Medication Consenton 023 Medication Consent [id number] 0CD:127 [facility] Ambulatory Visit Summaryon 0 12-20-2022 [...] EDT With: Yohan PIPER, Lidya Lal Where: [facility] Lab Reportson 12-14-2022 Lab Reports [id number] CD:127 Normal [facility] Stone Analysison 10-25-2022 Calculi description See Note [facility] Comment on above: Result Comment: (NOT E) Specimen consists of numerous brown calculi. The total weight is 684 mg. Performed By: #### A STONE #### [facility] [address] [place] [id number] Exhibits Coordinator: Jamel Valentine MD Composition See Note [facility] Comment on above: Result Comment: (NOT E) [...] composition determined by FTIR analysis. Performed By: [facility] [address] [place] [address] Sales Driver: Reggie Lawrence MD, PhD Performed By: #### A STONE #### [facility] [address] [place], [place] [id number] Exhibits Coordinator: Jamel Valentine MD [place] 684 mg [facility] Comment on above: Performed By: #### A STONE #### [facility] [address] [place], [place] [id number] Exhibits Coordinator: Jamel Valentine MD CULTURE URINEon 09-20-2022 CULTURE URINE Culture Observations : NO GROWTH. Normal [facility] Comment on above: Performed By: #### U RCX #### [facility] [address] [place] [address] [address] Gigi Guzman FREE T3on 09-20-2022 FREE T3 1.79 pg/mlL Critically low 2.18-3.98 [facility] Comment on above: Performed By: #### F T3, TSH #### [facility] [address] [place] [address] [address] Gigi Guzman FREE T4on 09-20-2022 Free T4 [Mass/Vol] 0.97 ng/dL Normal 0.76-1.46 [facility] Comment on above: Performed By: #### F T4 #### [facility] [address] [place] [address] Dr. Gigi Guzman TSHon 09-20-2022 TSH 2.154 uIU/mL Normal 0.358-3.740 [facility] Comment on above: Performed By: #### F T3, TSH #### [facility] [address] [place] [address] [address] Gigi Guzman CULTURE URINEon 08-17-2022 CULTURE URINE Culture Observations : LIGHT GROWTH OF MIXED GENITAL GARFIELD. NO POTENTIAL PATHOGENS SEEN. Normal [facility] Comment on above: Performed By: #### U RCX #### [facility] [address] [place] [address] [address] Gigi Guzman Automated erythrocytes count in urine sediment (number/area)Ordered By: Rashard Aguilar on 05-17-2022 RBC Auto (Urine sed) [#/Area] 3-4 [HPF] 0-4 [facility] Automated leukocytes count i n urine sediment (number/area)Ordered By: Rashard Aguilar on 05-17-2022 WBC Auto (Urine sed) [#/Area] 10-19 [HPF] 0-4 [facility] Automated urine hyaline cast s count (number/volume)Ordered By: Rashard Aguilar on 05-17-2022 Hyaline casts Auto (U) [#/Vol] None seen [LPF] 0-1 [facility] Comment on above: --- 05/17/221731 -- -Ur [employer] previously reported as: None Seen /LPF Basophils Auto (Bld) [#/Vol] Ordered By: Rashard Aguilar on 05-17-2022 Basophils (Bld) [#/Vol] 0.1 10*3/uL 0.0-0.2 [facility] Basophils/100 WBC Auto (Bld) Ordered By: Rashard Aguilar on 05-17-2022 Basophils/100 WBC (Bld) 0.9 % . [facility] Bilirubin Test strip Ql (U)O rdered By: Rashard Aguilar on 05-17-2022 Bilirubin Ql (U) Negative Negative [facility] Blood hemoglobin measurement (mass/volume)Ordered By: Rashard Aguilar on 05-17-2022 Hemoglobin (Bld) [Mass/Vol] 13.3 g/dL 11.8-15.4 [facility] Blood leukocytes automated c ount (number/volume)Ordered By: Rashard Aguilar on 05-17-2022 WBC (Bld) [#/Vol] 5.5 10*3/uL 4.5-11.0 [facility] C reactive protein [Mass/vol ume] in Serum or PlasmaOrdered By: Rashard Aguilar on 05-17-2022 CRP [Mass/Vol] 0.9 mg/dL 0.0-1.0 [facility] Casts typing in urine sedime nt by light microscopyOrdered By: Rashard Aguilar on 05-17-2022 Casts LM Nom (Urine sed) None seen [LPF] None Seen [facility] Comment on above: --- 05/17/221731 -- -Ur Other [employer] previously reported as: None Seen /LPF Color Auto (U)Ordered By: Alta Aguilar on 05-17-2022 Color (U) Yellow Yellow [facility] Creatinine and Glomerular fi ltration rate.predicted panel (S/P/Bld)Ordered By: Rashard Aguilar on 05-17-2022 Creatinine [Mass/Vol] 0.84 mg/dL 0.44-1.03 [facility] Eosinophils Auto (Bld) [#/Vo l]Ordered By: Rashard Aguilar on 05-17-2022 Eosinophils (Bld) [#/Vol] 0.3 10*3/uL 0.0-0.45 [facility] Eosinophils/100 WBC Auto (Bl d)Ordered By: Rashard Aguilar on 05-17-2022 Eosinophils/100 WBC (Bld) 4.7 % . [facility] Erythrocyte distribution wid th Auto (RBC) [Ratio]Ordered By: Rashard Aguilar on 05-17-2022 Erythrocyte distribution width (RBC) [Ratio] 14.7 % 11.9-15.3 [facility] Erythrocyte sedimentation ra te by Photometric methodOrdered By: Rashard Aguilar on 05-17-2022 ESR Photometric method (Bld) [Velocity] 47 mm/hr 0-29 [facility] Estimated glomerular filtrat ion rate (GFR) non- AmericanOrdered By: Rashard Aguilar on 05-17-2022 GFR/1.73 sq M.predicted among non-blacks MDRD (S/P/Bld) [Vol rate/Area] > 60 mL/Min [facility] Hematocrit Auto (Bld) [Volum e fraction]Ordered By: Rashard Aguilar on 05-17-2022 Hematocrit (Bld) [Volume fraction] 40.6 % 34.0-46.4 [facility] Ketones Auto test strip (U) [Mass/Vol]Ordered By: Rashard Aguilar on 05-17-2022 Ketones (U) [Mass/Vol] Negative Negative [facility] - Hematology and Cell countsOrdered By: Rashard Aguilar on 05-17-2022 Nucleated RBC/100 WBC (Bld) [Ratio] 0.1 % 0-0.5 [facility] Lymphocytes Auto (Bld) [#/Vo l]Ordered By: Rashard Aguilar on 05-17-2022 Lymphocytes (Bld) [#/Vol] 1.6 10*3/uL 1.00-4.8 [facility] Lymphocytes/100 WBC Auto (Bl d)Ordered By: Rashard Aguilar on 05-17-2022 Lymphocytes/100 WBC (Bld) 29.3 % . [facility] MCH Auto (RBC) [Entitic mass ]Ordered By: Rashard Aguilar on 05-17-2022 MCH (RBC) [Entitic mass] 30.3 pg 24.7-34.3 [facility] MCHC Auto (RBC) [Mass/Vol]Or dered By: Rashard Aguilar on 05-17-2022 MCHC (RBC) [Mass/Vol] 32.6 g/dL 32.0-35.0 [facility] MCV Auto (RBC) [Entitic vol] Ordered By: Rashard Aguilar on 05-17-2022 MCV (RBC) [Entitic vol] 93.0 fL 80-100 [facility] Monocytes Auto (Bld) [#/Vol] Ordered By: Rashard Aguilar on 05-17-2022 Monocytes (Bld) [#/Vol] 0.5 10*3/uL 0.0-0.8 [facility] Monocytes/100 WBC Auto (Bld) Ordered By: Rashard Aguilar on 05-17-2022 Monocytes/100 WBC (Bld) 8.6 % . [facility] Neutrophils Auto (Bld) [#/Vo l]Ordered By: Rashard Aguilar on 05-17-2022 Neutrophils (Bld) [#/Vol] 3.1 10*3/uL 1.8-7.7 [facility] Neutrophils/100 WBC Auto (Bl d)Ordered By: Rashard Aguilar on 05-17-2022 Neutrophils/100 WBC (Bld) 56.5 % . [facility] Nitrite Test strip Ql (U)Ord ered By: Rashard Aguilar on 05-17-2022 Nitrite Ql (U) Negative Negative [facility] No Panel InformationOrdered By: Rashard Aguilar on 05-17-2022 Estimated GFR () > 60 mL/Min [facility] Comment on above: GFR estimated refere nce range: According to KDOQI guidelines, <60 ml/min/1.73m2 is sufficient to diagnose a patient with chronic kidney disease. Pharmacy Creatinine Clearance (Chem N/A [facility] Platelet mean volume Auto (B ld) [Entitic vol]Ordered By: Rashard Aguilar on 05-17-2022 Platelet mean volume (Bld) [Entitic vol] 7.0 fL 6.3-10.7 [facility] Platelets Auto (Bld) [#/Vol] Ordered By: Rashard Aguilar on 05-17-2022 Platelets (Bld) [#/Vol] 278 10*3/uL 150-450 [facility] Protein Auto test strip (U) [Mass/Vol]Ordered By: Rashard Aguilar on 05-17-2022 Protein (U) [Mass/Vol] Negative Negative Fi [facility] RBC Auto (Bld) [#/Vol]Ordere d By: Rashard Aguilar on 05-17-2022 RBC (Bld) [#/Vol] 4.37 10*6/uL 3.60-5.00 [facility] Specific gravity Auto test s trip (U) [Rel density]Ordered By: Rashard Aguilar on 05-17-2022 Specific gravity (U) [Rel density] 1.009 1.001-1.030 [facility] Squamous epithelial cells de tection in urine sediment by light microscopyOrdered By: Rashard Aguilar on 05-17-2022 Epithelial cells.squamous LM Ql (Urine sed) 5-9 [HPF] 0-2 [facility] Urine bacteria detection by automated methodOrdered By: Rashard Aguilar on 05-17-2022 Bacteria Auto Ql (U) None seen None Seen [facility] Urine clarity by refractomet ry automatedOrdered By: Rashard Aguilar on 05-17-2022 Clarity Refractometry automated (U) Clear Clear [facility] Urine glucose measurement by automated test strip (mass/volume)Ordered By: Rashard Aguilar on 05-17-2022 Glucose Auto test strip (U) [Mass/Vol] Normal mg/dL Normal [facility] Urine hemoglobin detection b y automated test stripOrdered By: Rashard Aguilar on 05-17-2022 Hemoglobin Auto test strip Ql (U) Negative Negative [facility] Urine leukocyte esterase det ection by automated test stripOrdered By: Rashard Aguilar on 05-17-2022 Leukocyte esterase Auto test strip Ql (U) 2+ Negative [facility] Urobilinogen Auto test strip (U) [Mass/Vol]Ordered By: Rashard Aguilar on 05-17-2022 Urobilinogen (U) [Mass/Vol] Normal mg/dL Normal [facility] pH Auto test strip (U)Ordere d By: Rashard Aguilar on 05-17-2022 pH (U) 5.5 [pH] 5.0-9.0 [facility] CULTURE URINEon 03-17-2022 CULTURE URINE Isolate [...] F Trimethoprim/Sulfameth oxazole <=20 S F Normal [facility] Comment on above: Performed By: #### U RCX #### [facility] [address] [place] [address] Dr. Gigi Guzman UA (CLEAN/CATCH) ASSOCIATE JUSTICE/MICRO I F IND.on 03-14-2022 Bilirubin Ql (U) Negative Normal NEGATIVE [facility] Comment on above: Performed By: #### U ACSIND, UMICRO #### [facility] [address] [place] [address] Dr. Gigi Guzman Clarity (U) CLEAR Normal CLEAR [facility] Comment on above: Performed By: #### U ACSIND, ICRO #### [facility] [address] [place] [address] Dr. Gigi Guzman Color (U) DK. YELLOW Normal YELLOW [facility] Comment on above: Performed By: #### U ACSIND, UMICRO #### [facility] [address] [place] [address] Dr. Gigi Guzman Glucose Ql (U) Negative Normal NEGATIVE [facility] Comment on above: Performed By: #### U ACSIND, UMICRO #### [facility] [address] [place] [address] Dr. Gigi Guzman Hemoglobin Ql (U) Negative Normal NEGATIVE [facility] Comment on above: Performed By: #### U ACSIND, UMICRO #### [facility] [address] [address] [address] Gigi Guzman Ketones Ql (U) Negative Normal NEGATIVE [facility] Comment on above: Performed By: #### U ACSIND, UMICRO #### [facility] [address] [address] [address] Gigi Guzman LEUKOCYTES TRACE Abnormal NEGATIVE [facility] Comment on above: Performed By: #### U ACSIND, UMICRO #### [facility] [address] [address] [address] Gigi Guzman Nitrite Ql (U) Positive Abnormal NEGATIVE [facility] Comment on above: Performed By: #### U ACSIND, UMICRO #### [facility] [address] [place] [address] Dr. Gigi Guzman pH (U) 5.0 [pH] Normal 5-9 [facility] Comment on above: Performed By: #### U ACSIND, ICRO #### [facility] [address] [place] [address] Dr. Gigi Guzman SPEC GRAVITY 1.010 Normal 1.005-<=1.02 5 [facility] Comment on above: Performed By: #### U ACSIND, UMICRO #### [facility] [address] [place] [address] Dr. Gigi Guzman UA PROTEIN Negative Normal NEGATIVE/ TRACE [facility] Comment on above: Performed By: #### U ACSIND, UMICRO #### [facility] [address] [address] [address] Gigi Guzman UR MICRO IND INDICATED Normal [facility] Comment on above: Performed By: #### U ACSIND, UMICRO #### [facility] [address] [place] [address] Dr. Gigi Guzman Urobilinogen Qn (U) 0.2 {Maren'U}/dL Normal 0.2 - 1. 0 [facility] Comment on above: Performed By: #### U ACSKRYSTLE, UMICRO #### [facility] [address] [place] [address] Dr. Gigi Guzman URINE MICROSCOPIC ONLYon BACTERIA SMALL Abnormal NONE SEEN [facility] Comment on above: Performed By: #### U ACSKRYSTLE, UMICRO #### [facility] [address] [place] [address] Dr. Gigi Guzman Bacteria identified Cx Nom (U) INDICATED Normal [facility] Comment on above: Performed By: #### U ACSKRYSTLE, UMICRO #### [facility] [address] [place] [address] Dr. Gigi Guzman CAST NONE SEEN Normal NONE SEEN [facility] Comment on above: Performed By: #### U ACSKRYSTLE, UMICRO #### [facility] [address] [place] [address] Dr. Gigi Guzman Crystals LM Nom (Urine sed) NONE SEEN Normal NONE SEEN [facility] Comment on above: Performed By: #### U ACSKRYSTLE, UMICRO #### [facility] [address] [place] [address] Dr. Gigi Guzman Epithelial cells LM Ql (Urine sed) FEW Abnormal NONE SEEN /RARE [facility] Comment on above: Performed By: #### U ACSKRYSTLE, UMICRO #### [facility] [address] [place] [address] Dr. Gigi Guzman MUCOUS NONE SEEN Normal NONE SEEN [facility] Comment on above: Performed By: #### U ACSKRYSTLE UMICRO #### [facility] [address] [place] [address] Dr. Gigi Guzman RBC 0-2 Normal 0-2 [facility] Comment on above: Performed By: #### U ACSKRYSTLE UMICRO #### [facility] [address] [place] [address] Dr. Gigi Guzman WBC 10-20 Abnormal NONE SEEN [facility] Comment on above: Performed By: #### U ACSKRYSTLE, UMICRO #### [facility] [address] [place] [address] Dr. Gigi Guzman CULTURE URINEon 01-25-2022 CULTURE URINE Culture Observations : LIGHT GROWTH OF MIXED GENITAL GARFIELD. NO POTENTIAL PATHOGENS SEEN. Normal [facility] Comment on above: Performed By: #### U RCX #### [facility] [address] [place], [place] [address] Dr. Gigi Guzman Urinalysis - AUTOMATEDon Appearance (U) cloudy [facility] Other Bilirubin Ql (U) Negative [facility] Other Color (U) orange [facility] Other Glucose Ql (U) Negative [facility] Other Hemoglobin Ql (U) Negative [facility] Other Ketones Ql (U) Negative [facility] Other Leukocyte esterase Test strip Ql (U) trace [facility] Other Nitrite Ql (U) Positive [facility] Other pH (U) 5.0 [pH] [facility] Other Protein Ql (U) Negative [facility] Other Specific gravity (U) [Rel density] >1.030 [facility] Other Urobilinogen (U) [Mass/Vol] 0.2 mg/dL [facility] Other Urinalysis - AUTOMATED No rt [facility] Other Urine Cultureon 12-21-2021 Urine Culture >100,000 [facility] Other ANAon 07-06-2017 KAILEY PATTERN HOMOGENEOUS AND SPECKLED Normal [facility] Comment on above: Performed By: #### 0 0121, [id number] ####[facility] [address], [facility] KAILEY SCREEN 1:160 Abnormal <1:40,1:40 [facility] Comment on above: Performed By: #### 0 0121, 67954 ####[facility] [place] [address], [facility] ANTI DNAon 07-06-2017 ANTI DNA <1:10 Normal <1:10 [facility] Comment on above: Performed By: #### 0 0121, 51277 ####[facility] [place] [address], [facility] ANTI-BETA 2 GLYCOPROTEIN 1on 07-06-2017 ANTI B2GP1 IGA 4.5 a units Normal 0.0-19.9 [facility] Comment on above: Performed By: #### 0 0121, 22276 ####[facility] [facility] [place] [address], [facility] ANTI B2GP1 IGG 0.7 g units Normal 0.0-19.9 [facility] Comment on above: Performed By: #### 0 0121, 28721 ####[facility] [place] [address], [facility] ANTI B2GP1 IGM 3.8 m units Normal 0.0-19.9 [facility] Comment on above: Performed By: #### 0 0121, 03819 ####[facility] [facility] [place] [place] [address], [facility] ANTI-ENAon 07-06-2017 ANTI SM Negative Normal NEG,NEGATIVE ,Neg [facility] Comment on above: Performed By: #### 0 0121, 98638 ####[facility] [facility] [place] [place] [address], [facility] ANTI SM/ANTIRNP Negative Normal NEG,NEGATIVE ,Neg [facility] Comment on above: Performed By: #### 0 0121, 04003 ####[facility] [place] [address], [facility] ANTICARDIOLIPIN ANTIBODYon 09-05-2016 CARDIOLIPIN IGA 3.4 APL Normal 0.0-21.9 [facility] Comment on above: Performed By: #### 0 0121, 48301 ####[facility] CARDIOLIPIN IGG 7.7 GPL Normal 0.0-22.9 [facility] Comment on above: Performed By: #### 0 0121, 56881 ####[facility] CARDIOLIPIN IGM 1.2 MPL Normal 0.0-10.9 [facility] Comment on above: Performed By: #### 0 0121, 12092 ####[facility] C REACTIVE PROTEINon 017 C reactive protein (CRP) 6.1 mg/L Normal 0.0-7.0 [facility] Comment on above: Performed By: #### 1 0238, 07749, 26880 ####[facility] CBC W/DIFFon 07-06-2017 Basophils Auto #/vol (Bld) 0.4 % Normal 0.0-2.0 [facility] Comment on above: Performed By: #### 5 0103, 91497 ####[facility] Eosinophils/100 leukocytes 2.9 % Normal 0.0-5.0 [facility] Comment on above: Performed By: #### 5 0103, 84642 ####[facility] Erythrocyte distribution width Auto Ratio (RBC) 15.1 % Normal 11.5-16.9 [facility] Comment on above: Performed By: #### 5 0103, 06080 ####[facility]3000 [facility].[address] Erythrocytes (RBC) 4.47 mill/mm3 Normal 3.50-5.50 [facility] Comment on above: Performed By: #### 5 102, 16465 ####[facility] [facility].[address] Hematocrit (HCT) 40.7 % Normal 36.0-48.0 [facility] Comment on above: Performed By: #### 102, 48485 ####[address] Hemoglobin mass conc (Bld) 13.5 g/dL Normal 12.0-15.0 [facility] Comment on above: Performed By: #### 102, 17282 ####[address] Lymphocytes/100 leukocytes 27.3 % Normal 20.0-40.0 [facility] Comment on above: Performed By: #### 102, 33157 ####[address] MCH 30.1 pg Normal 24.0-32.0 [facility] Comment on above: Performed By: #### 5 102, 46243 ####[place] [id number] [facility].[address] MCHC mass conc (RBC) 33.0 g/dL Normal 32.0-36.0 [facility] Comment on above: Performed By: #### 5 102, 81097 ####[address] MCV 91.1 fL Normal 80.0-100.0 [facility] Comment on above: Performed By: #### 5 102, 39748 ####[address] [place] [address], [facility] METHOD Normal RBC Morphology Normal [facility] Comment on above: Performed By: #### 5 010, 88234 ####[facility] [place] [address], [facility] MONOS 6.6 % Normal 2-8 [facility] Comment on above: Performed By: #### 5 010, 68953 ####[facility] [place] [address], [facility] Neutrophils/100 leukocytes 62.8 % Normal 50-70 [facility] Comment on above: Performed By: #### 5 0103, 26330 ####[facility] [place] [address], [facility] PLAT CNT 209 Thou/mm3 Normal 100-400 [facility] Comment on above: Performed By: #### 5 0103, 48526 ####[facility] [facility].[address] WBC (Leukocytes) 7.9 Thou/mm3 Normal 4.0-10.0 [facility] Comment on above: Performed By: #### 5 0103, 94353 ####[facility]3000 [facility].[address] COMP METABOLIC PANELon 07-06 Alanine aminotransferase (ALT) 17 U/L Normal 7-52 [facility] Comment on above: Performed By: #### 0 0121, 75708 ####[facility] [facility].[address] Albumin 4.4 g/dL Normal 3.5-5.7 [facility] Comment on above: Performed By: #### 0 0121, 58109 ####[facility] [place] [address], [facility] ALKALINE PHOSPH 54 IU/L Normal 34-104 [facility] Comment on above: Performed By: #### 0 0121, 87521 ####[facility] [facility].[address] Aspartate aminotransferase (AST) 25 U/L Normal 13-39 [facility] Comment on above: Performed By: #### 0 0121, 60894 ####[facility] [facility].[address] Bilirubin (total) 0.4 mg/dL Normal 0.3-1.0 [facility] Comment on above: Performed By: #### 0 0121, 70886 ####[facility] Calcium 9.4 mg/dL Normal 8.6-10.3 [facility] Comment on above: Performed By: #### 0 0121, 80162 ####[facility]3000 [facility].[address] Chloride 105 mmol/L Normal 98-107 [facility] Comment on above: Performed By: #### 0 0121, 20070 ####[facility]3000 [facility].[address] CO2 28 mmol/L Normal 21-31 [facility] Comment on above: Performed By: #### 0 0121, 75563 ####[facility] [place] [address], [facility] Creatinine 0.88 mg/dL Normal 0.60-1.20 [facility] Comment on above: Performed By: #### 0 0121, 27051 ####[facility]3000 [facility].[address] eGFR (black) mL/min/{1.73_m2} Normal >60 [facility] Comment on above: Result Comment: Calc ulation may not be valid for patients over 70 years Performed By: #### 0 0121, 18389 ####[facility]3000 [facility].[address] eGFR (non-black) mL/min/{1.73_m2} Normal >60 Th e [facility] Comment on above: Result Comment: Calc ulation may not be valid for patients over 70 years Performed By: #### 0 0121, 39817 ####[facility]3000 [facility].[address] Glucose mass conc 90 mg/dL Normal 70-100 [facility] Comment on above: Performed By: #### 0 0121, 24277 ####[place] [id number] [facility].[address] Potassium molar conc 3.9 mmol/L Normal 3.5-5.1 [facility] Comment on above: Performed By: #### 0 0121, 20756 ####[place] [id number] [facility].[address] Protein 7.2 g/dL Normal 6.0-8.3 [facility] Comment on above: Performed By: #### 0 0121, 78275 ####[place] [address] [facility].[address] Sodium 137 mmol/L Normal 136-145 [facility] Comment on above: Performed By: #### 0 0121, 32915 ####[place] [address] [facility].[address] Urea nitrogen 16 mg/dL Normal 7-25 [facility] Comment on above: Performed By: #### 0 0121, 53983 ####[place] [id number] [facility].[address] COMPLEMENT 3on 07-06-2017 COMPLEMENT 3 125 mg/dL Normal 79-152 [facility] Comment on above: Performed By: #### 1 0238, 08248, 85144 ####[facility] [place] [address], [facility] COMPLEMENT 4on 07-06-2017 COMPLEMENT 4 28 mg/dL Normal 16-38 [facility] Comment on above: Performed By: #### 1 0238, 83743, 22827 ####[facility] [facility] [place] [address], [facility] CPKon 07-06-2017 Creatine kinase (CK) 55 U/L Normal 30-223 [facility] Comment on above: Performed By: #### 0 0121, 57539 ####[facility] [facility] [place] [place] [address], [facility] CREATININE URINE RANDOMon Creatinine 87.0 mg/dL Normal [facility] Comment on above: Result Comment: Ther e are no established reference values for random urine specimens Performed By: #### 4 1802, 29082 ####[place] [id number] [facility].[address] SEDIMENTATION RATEon 017 SED RATE 22 mm/hr High 0-20 [facility] Comment on above: Performed By: #### 5 0103, 69956 ####[place] [id number] [place] [address], [facility] SJOGRENS ANTIBODIESon 2016 SS-A Negative Normal NEG,NEGATIVE ,Neg [facility] Comment on above: Performed By: #### 0 0121, 05012 ####[facility] [facility] [place] [place] [address], [facility] SS-B Negative Normal NEG,NEGATIVE ,Neg [facility] Comment on above: Performed By: #### 0 0121, 76573 ####[facility] [place] [address], [facility] T PROT UR Rhianna 07-06-2017 U TOTAL PROTEIN 10.0 mg/dL Normal [facility] Comment on above: Result Comment: Ther e are no established reference values for random urine specimens Performed By: #### 4 1802, 42632 ####[facility] [facility] [address], [facility] URINALYSISon 07-06-2017 Bilirubin (total) Negative Normal NEGATIVE [facility] Comment on above: Performed By: #### 1 0008 ####[facility] [facility] [place] [address], [facility] BLOOD Negative Normal NEGATIVE [facility] Comment on above: Performed By: #### 1 0008 ####[facility] [facility] [place] [address], [facility] EPIS MANY Abnormal FEW [facility] Comment on above: Performed By: #### 1 0008 ####[facility] [facility] [address], [facility] Erythrocytes (RBC) 0-2 Abnormal 0-0 [facility] Comment on above: Performed By: #### 1 0008 ####[facility] [facility] [address], [facility] Glucose mass conc Negative Normal NEGATIVE [facility] Comment on above: Performed By: #### 1 0008 ####[facility] [facility] [place] [address], [facility] KETONE Negative Normal NEGATIVE [facility] Comment on above: Performed By: #### 1 0008 ####[facility] [facility] [address], [facility] LEUK GERRY TRACE Abnormal NEGATIVE [facility] Comment on above: Performed By: #### 1 0008 ####[facility] [facility] [address], [place] MUCUS THREADS OCC Abnormal NONE SEEN [facility] Comment on above: Performed By: #### 1 0008 ####[facility], [place] [address] [place] [address] pH of blood 5.0 [pH] Normal 5.0-8.0 [facility] Comment on above: Performed By: #### 1 0008 ####[facility] [place] [address], [facility] Protein Negative Normal NEGATIVE [facility] Comment on above: Performed By: #### 1 0008 ####[facility]3000 [facility].[address] SPEC GRAV 1.013 Low 1.015-1.020 [facility] Comment on above: Performed By: #### 1 0008 ####[facility] [place] [address], [facility] Urine, appearance CLEAR Normal CLEAR [facility] Comment on above: Performed By: #### 1 0008 ####[facility] [facility].[address] Urine, bacteria in sediment OCC Abnormal NONE SEEN [facility] Comment on above: Performed By: #### 1 0008 ####[facility] [place] [address], [facility] Urine, color SHAYY Abnormal YELLOW [facility] Comment on above: Performed By: #### 1 0008 ####[facility] [place] [address], [facility] Urine, nitrite presence Positive Abnormal NEGATIVE [facility] Comment on above: Performed By: #### 1 0008 ####[facility] [place] [address], [facility] WBC UA 6-10 Abnormal 0-0 [facility] Comment on above: Performed By: #### 1 0008 ####[facility]3000 [facility].[address] Vital Signs Date Time Vital Sign Value Performing Clinician Mandy mejia 08-17-2023 13:40-0500 Body height 167.64 cm Shayy Garza Other [facility] Other 08-17-2023 13:40-0500 Body mass index (BMI) [Ratio] 26.31 kg/m2 Shayy Garza Other [facility] Other 08-17-2023 13:40-0500 Body temperature 97.9 [degF] Shayy Garza Other [facility] Other 08-17-2023 13:40-0500 Body weight 73.94 kg Shayy Garza Other [facility] Other 08-17-2023 13:40-0500 Respiratory rate 18 /min Shayy Garza Other [facility] Other 08-17-2023 13:40-0500 SaO2% (BldA) [Mass fraction] 96 % Shayy Garza Other [facility] Other 08-01-2023 09:00-0500 Body height 167.64 cm Mary Tejal Other [facility] Other 08-01-2023 09:00-0500 Body mass index (BMI) [Ratio] 26.02 kg/m2 Mary Tejal Other [facility] Other 08-01-2023 09:00-0500 Body temperature 98.1 [degF] Mary Tejal Other [facility] Other 08-01-2023 09:00-0500 Body weight 73.12 kg Mary Tejal Other [facility] Other 08-01-2023 09:00-0500 Diastolic blood pressure 97 mm[Hg] Mary Toure Other [facility] Other 08-01-2023 09:00-0500 Respiratory rate 18 /min Mary Toure Other [facility] Other 08-01-2023 09:00-0500 SaO2% (BldA) [Mass fraction] 95 % Mary Toure Other [facility] Other 08-01-2023 09:00-0500 Systolic blood pressure 166 mm[Hg] Mary Toure Other [place] Other 06-01-2023 14:54-0400 Diastolic blood pressure 88 mm[Hg] Rahul Christofferson [facility] 06-01-2023 14:54-0400 Heart rate 78 /min Rahul Christofferson [facility] 06-01-2023 14:54-0400 SaO2% (BldA) [Mass fraction] 97 % Rahul Christofferson [facility] 06-01-2023 14:54-0400 Systolic blood pressure 138 mm[Hg] Rahul Christofferson [facility] 04-20-2023 14:33-0400 Blood Pressure Location Rahul Christofferson [facility] 04-20-2023 14:33-0400 Diastolic blood pressure 72 mm[Hg] Rahul Christofferson [facility] 04-20-2023 14:33-0400 Heart rate 76 /min Rahul Christofferson [facility] 04-20-2023 14:33-0400 SaO2% (BldA) [Mass fraction] 96 % Rahul Christofferson [facility] 04-20-2023 14:33-0400 Systolic blood pressure 128 mm[Hg] Rahul Salas [facility] 12-21-2021 13:35-0400 Body height 167.64 cm Mary Toure Other [facility] Other 12-21-2021 13:35-0400 Body mass index (BMI) [Ratio] 28.73 kg/m2 Mary Toure Other [facility] Other 12-21-2021 13:35-0400 Body temperature 97.9 [degF] Mary Toure Other [facility] Other 12-21-2021 13:35-0400 Body weight 80.74 kg Mary Toure Other [facility] Other 12-21-2021 13:35-0400 Diastolic blood pressure 66 mm[Hg] Mary Paulmond Other [facility] Other 12-21-2021 13:35-0400 Respiratory rate 16 /min Mary Toure Other [facility] Other 12-21-2021 13:35-0400 SaO2% (BldA) [Mass fraction] 97 % Mary Toure Other [facility] Other 12-21-2021 13:35-0400 Systolic blood pressure 129 mm[Hg] Mary Tejal Other [facility] Other Encounters Encounter Date Encounter Type Care Provider Facility Start: 03-28-2024 End: 03-28-2024 ambulatory SIMRAN GARCIA Not Available Start: 03-05-2024 End: 03-05-[address] [facility] Start: 02-20-2024 End: 02-20-2024 ambulatory DEBBIE Ambrocio GOLDSTEIN [facility] Start: 02-15-2024 End: 02-20-2024 Emergency department patient visit KIM Godinez [facility] Start: 02-15-2024 End: 02-19-2024 Evaluation and management of inpatient SHAIKH XOCHITL [facility] Start: 02-15-2024 End: 02-15-[address] [facility] Start: 02-15-2024 End: 02-20-2024 Emergency department patient visit KIM Godinez [facility] Start: 02-14-2024 End: 02-14-2024 ambulatory SHAIKH XOCHITL Not Available Start: 02-08-2024 End: 02-08-2024 ambulatory JANET GARCIA [facility] Start: 01-31-2024 End: 01-31-2024 ambulatory SYDNIE WADSWORTH [facility] Start: 01-30-2024 End: 01-30-2024 ambulatory SHAIKH XOCHITL Not Available Start: 01-19-2024 End: 01-19-2024 ambulatory SERA JENSEN Not Available Start: 01-17-2024 End: 01-17-2024 ambulatory SHAIKH XOCHITL Not Available Start: 01-16-2024 End: 01-16-2024 ambulatory [facility] Pamela [facility] Start: 01-13-2024 End: 01-14-2024 Emergency department patient visit YJOANA Mcmanus [facility] Start: 01-09-2024 End: 01-09-2024 ambulatory JOIE FITZGERALD Not Available Start: 12-26-2023 End: 12-26-2023 ambulatory MICHAEL G [facility] Start: 12-21-2023 End: 12-21-2023 ambulatory SHAIKH SHAND Not Available Start: 12-19-2023 End: 12-19-2023 ambulatory MICHAEL Pamela [facility] Start: 12-12-2023 End: 12-12-2023 ambulatory MICHAEL Santiago HANNAH [facility] Start: 11-13-2023 End: 11-14-2023 ambulatory XXXX NONE Facility:[facility] Start: 11-13-2023 End: 11-13-2023 Patient encounter procedure Rahul Salas [facility] Start: 11-08-2023 End: 11-08-2023 ambulatory SHAIKH XOCHITL [...] Start: 09-12-2023 End: 09-12-2023 ambulatory Rashard Aguilar Facility:[facility] Start: 09-12-2023 End: 09-12-2023 ambulatory PHYSICIAN NO [facility] Work Phone: Start: 09-12-2023 End: 09-12-2023 Patient encounter procedure PHYSICIAN NO [facility] [address] Work Phone: Start: 09-05-2023 End: 09-05-2023 ambulatory SHAIKH XOCHITL Not Available Start: 08-28-2023 End: 08-29-2023 ambulatory Gem Contreras [facility] Start: 08-28-2023 End: 08-28-2023 Patient encounter procedure Gem Contreras [facility] Start: 08-20-2023 End: 08-20-2023 ambulatory Shayy Garza Other [facility] Other Start: 08-20-2023 Telephone encounter Shayy Garza [facility] [address] Start: 08-17-2023 End: 08-17-2023 ambulatory Shayy Garza Facility:[facility] Start: 08-17-2023 End: 08-17-2023 Departed Referred PHYSICIAN NO [facility] [address] [place] Work Phone: Start: 08-17-2023 End: 08-17-2023 ambulatory PHYSICIAN NO [facility] Work Phone: Start: 08-17-2023 Office outpatient visit 15 minutes Shayy Garza [facility] Start: 08-17-2023 End: 08-17-2023 Patient encounter procedure PHYSICIAN NO [facility] [place] Work Phone: Start: 2023 End: 08-16-2023 ambulatory Camelia LOW Facility:[facility] Start: 08-01-2023 Office outpatient visit 15 minutes Mary Toure [facility] Start: 08-01-2023 End: 08-01-2023 ambulatory Mary Toure [facility] Other Start: 08-01-2023 End: 08-01-2023 Departed Referred PHYSICIAN NO [facility] [address] [place] Work Phone: Start: 07-31-2023 End: 08-01-2023 ambulatory Gem Contreras Facility[facility] Start: 07-31-2023 End: 08-01-2023 Patient encounter procedure Gem Contreras [facility] Start: 07-24-2023 End: 07-24-2023 ambulatory SERA JENSEN Not Available Start: 07-14-2023 End: 07-15-2023 ambulatory Lidya Almanzar Facility:[facility] Start: 06-29-2023 ambulatory Tonio Levy Facility:[facility] Start: 06-23-2023 ambulatory Gem Contreras Facility:[facility] Start: 06-22-2023 End: 06-23-2023 ambulatory Lidya Almanzar Facility:[facility] Start: 06-13-2023 ambulatory Gem Contreras Facility [facility] Start: 06-06-2023 End: 06-07-2023 ambulatory Gem Freeman Ben Facility:[facility] Start: 06-06-2023 End: 06-06-2023 Patient encounter procedure Gem Lydia Contreras [facility] Start: 06-01-2023 End: 06-02-2023 ambulatory Lidya Almanzar Facility:[facility] Start: 06-01-2023 End: 06-01-2023 Patient encounter procedure Rahul Salas [facility] Start: 05-31-2023 ambulatory Gem Contreras Facility:[facility] Start: 05-30-2023 End: 05-31-2023 ambulatory Lidya Almanzar Facility:[facility] Start: 05-25-2023 End: 05-26-2023 ambulatory XXXX NONE Facility:[facility] Start: 05-11-2023 End: 05-12-2023 ambulatory Rahul Salas Facility:[facility] Start: 05-11-2023 End: 05-11-2023 Patient encounter procedure Rahul Salas [facility] Start: 05-09-2023 Telephone encounter Shayy Garza [facility] [place] Start: 05-09-2023 End: 05-10-2023 ambulatory Franco SCHERER [facility] Other Start: 05-04-2023 End: 05-04-2023 ambulatory Shayy Garza Facility:[facility] Start: 04-20-2023 End: 04-21-2023 ambulatory Lidya Almanzar Facility:[facility] Start: 04-20-2023 End: 04-20-2023 Patient encounter procedure Rahul Salas [facility] Start: 04-17-2023 End: 04-18-2023 ambulatory Lidya Almanzar Facility:[facility] [place] Start: 03-28-2023 End: 03-29-2023 ambulatory Lidya Almanzar Facility:[facility] [place] Start: 03-20-2023 End: 03-21-2023 ambulatory Lidya Almanzar Facility:[facility] [place] Start: 03-02-2023 End: 03-02-2023 ambulatory Rashard Aguilar Facility:[facility] Start: 03-02-2023 End: 03-02-2023 ambulatory MD Ashutosh Santana Work Phone: [facility] Work Phone: Start: 03-02-2023 End: 03-02-2023 Patient encounter procedure MD Ashutosh Santana Work Phone: [facility] [address] Work Phone: Start: 01-24-2023 End: 01-24-2023 ambulatory Rashard Aguilar Facility:[facility] Start: 01-24-2023 End: 01-24-2023 ambulatory MD Ashutosh Santana Work Phone: [facility] Work Phone: Start: 01-24-2023 End: 01-24-2023 Patient encounter procedure MD Ashutosh Santana Work Phone: [facility] [address] Work Phone: Start: 12-20-2022 End: 12-21-2022 ambulatory Lidya Almanzar Facility:[facility] [place] Start: 10-21-2022 End: 10-22-2022 ambulatory PILI VELASCO [facility] Start: 09-20-2022 End: 09-21-[address] ASHUTOSH SANTANA Facility:[facility] Start: 08-17-2022 End: 08-18-[address] ASHUTOSH SANTANA Facility:[facility] Start: 05-17-2022 End: 05-17-2022 ambulatory MD Ashutosh Santana Work Phone: [facility] Work Phone: Start: 05-17-2022 End: 05-17-2022 Patient encounter procedure MD Ashutosh Santana Work Phone: [facility] [address] Start: 03-14-2022 End: 03-15-[address] ASHUTOSH SANTANA Facility:[facility] Start: 01-25-2022 End: 01-26-[address] ASHUTOSH SANTANA Facility:[facility] Start: 01-06-2022 End: 01-06-2022 ambulatory Mary Toure Other [facility] Other Start: 01-06-2022 Telephone encounter Mary [facility]CRACKEN [facility] Start: 12-21-2021 End: 12-21-2021 ambulatory Mary Toure Other [facility] Other Start: 12-21-2021 Office outpatient visit 25 minutes Mary Toure [facility] Start: 09-27-[address] ASHUTOSH SANTANA Facilit y:[facility] Start: 07-06-2017 End: 07-07-2017 Ambulatory ILSET WILIAN Facility:[facility] Procedures Date Procedure Procedure Detail Performing [...] Annual Wellness (AWV) Medicare Annual Wellness (AWV) [facility] Start: 11-08-2023 End: 11-08-2023 Patient encounter procedure 11/08/2023 3:30 PM EDT Office Visit [facility] [address] [place] [phone] Shaikh Leung MD [address] [place] [phone] [facility] Start: 09-12-2023 Bacteria identified in Urine by Culture [facility] Start: 08-17-2023 Bacteria identified in Urine by Culture [facility] Start: 04-21-2023 Influenza vaccination Influenza Vaccine (#1) [facility] Start: 01-24-2023 Bacteria identified in Urine by Culture Urine Culture [facility] Start: 05-17-2022 [facility] Start: 1951 Pneumococcal Vaccine: 65+ Years (1 - PCV) Pneumococcal Vaccine: 65+ Years (1 - PCV) [facility] Bacteria identified in Urine by Culture [facility] Complement C3 [Mass/ volume] in Serum or Plasma [facility] Work Phone: Complement C3 [Mass/ volume] in Serum or Plasma [facility] Complement C4 [Mass/ volume] in Serum or Plasma [facility] Work Phone: Complement C4 [Mass/ volume] in Serum or Plasma [facility] Myeloperoxidase Ab [Units/volume] in Serum by Immunoassay [facility] Work Phone: Neutrophil cytoplasm ic Ab.classic [Titer] in Serum by Immunofluorescence [facility] Work Phone: Neutrophil cytoplasm ic Ab.perinuclear.atypical [Titer] in Serum by Immunofluorescence [facility] Work Phone: P-ANCA measurement [facility] Work Phone: Proteinase 3 Ab [Units/volume] in Serum by Immunoassay [facility] Work Phone: Immunizations Immunization Date Immunization Notes Care Provider Tonja martinez NEGATED: Highlighted row has not occurred!05-30-2023 influenza virus vaccine, unspecified formulation Rahul Salas [facility] [place] NEGATED: Highlighted row has not occurred!11-02-2022 influenza virus vaccine, unspecified formulation Rahul Salas [facility] [place] NEGATED: Highlighted row has not occurred!11-02-2022 SARS-CoV-2 mRNA (tozinameran 5y-11y) vaccine Rahul Salas [facility] Payers Date Payer Category Payer Self-pay [id number] 2022 Medicare [facility] [id number] 2022-Present [address] [place] [address] [id number] 2021 Medicaid MEDICAID [facility] [id number] 2021-Present [phone] [address] [place] [address] Medicaid [id number] 2020 Medicare [id number] 2.16.840.1.121322.19 1959 Medicaid [id number] 2.16.840.1.257300.19 1959 Medicare [id number] 2.16.840.1.269115.19 1945 Unknown [id number] 2.16.840.1.832452.3.579.2. 593 1945 Unknown [id number] 2.16.840.1.898877.3.579.2. 593 1945 Unknown [id number] 2.16.840.1.293976.3.579.2. 593 1945 Unknown [id number] 2.16.840.1.279610.3.579.2. 593 1945 Unknown [id number] 2.16.840.1.622548.3.579.2. 593 1945 Unknown [id number] 2.16.840.1.152806.3.579.2. 175 1945 Unknown [id number] 2.16.840.1.364430.3.579.2. 727 1945 Unknown [id number] 2.16.840.1.737243.3.579.2. 727 1945 Unknown [id number] 2.16.840.1.210594.3.579.2. 727 1945 Unknown [id number] 2.16.840.1.863436.3.579.2. 727 1945 Unknown [id number] 2.16.840.1.452505.3.579.2. 727 1945 Unknown [id number] 2.16.840.1.003112.3.579.2. 727 1945 Unknown [id number] 2.16.840.1.033923.3.579.2. 727 1945 Unknown [id number] 2.16.840.1.141271.3.579.2. 727 1945 Unknown [id number] 2.16.840.1.971085.3.579.2. 727 1945 Unknown [id number] 2.16.840.1.752983.3.579.2. 727 1945 Unknown [id number] 2.16.840.1.965265.3.579.2. 727 1945 Unknown [id number] 2.16.840.1.236855.3.579.2. 727 1945 Unknown [id number] 2.16.840.1.610337.3.579.2. 727 1945 Unknown [id number] 2.16.840.1.205827.3.579.2. 72 1945 Unknown [id number] 2.16.840.1.166631.3.579.2. 72 1945 Unknown [id number] 2.16.840.1.308260.3.579.2. 72 1945 Unknown [id number] 2.16.840.1.479849.3.579.2. 72 1945 Unknown [id number] 2.16.840.1.731788.3.579.2. 1945 Unknown [id number] 2.16.840.1.665686.3.579.2. 727 1945 Unknown [id number] 2.16.840.1.046713.3.579.2. 1285 1945 Unknown [id number] 2.16.840.1.093778.3.579.2. 6 1945 Unknown [id number] 2.16.840.1.858873.3.579.2. 1285 1945 Unknown [id number] 2.16.840.1.235774.3.579.2. 128 1945 Unknown [id number] 2.16.840.1.757351.3.579.2. 1285 1945 Unknown [id number] 2.16.840.1.125659.3.579.2. 128 1945 Unknown [id number] 2.16.840.1.101975.3.579.2. 128 1945 Unknown [id number] 2.16.840.1.594818.3.579.2. 1286 1945 Unknown [id number] 2.16.840.1.577942.3.579.2. 1286 1945 Unknown [id number] 2.16.840.1.168854.3.579.2. 1286 1945 Unknown [id number] 2.16.840.1.039876.3.579.2. 1286 1945 Unknown [id number] 2.16.840.1.035102.3.579.2. 128 1945 Unknown [id number] 2.16.840.1.780801.3.579.2. 1285 1945 Unknown [id number] 2.16.840.1.581450.3.579.2. 1286 1945 Unknown [id number] 2.16.840.1.621091.3.579.2. 1286 1945 Unknown [id number] 2.16.840.1.380409.3.579.2. 6 1945 Unknown [id number] 2.16.840.1.007699.3.579.2. 1286 1945 Unknown [id number] 2.16.840.1.504103.3.579.2. 9 1945 Unknown [id number] 2.16.840.1.265257.3.579.2. 1259 1945 Unknown [id number] 2.16.840.1.630447.3.579.2. 1259 1945 Unknown [id number] 2.16.840.1.540088.3.579.2. 1259 1945 Unknown [id number] 2.16.840.1.296836.3.579.2. 1259 1945 Unknown [id number] 2.16.840.1.341378.3.579.2. 1259 1945 Unknown [id number] 2.16.840.1.502574.3.579.2. 1258 1945 Unknown [id number] 2.16.840.1.093995.3.579.2. 1259 1945 Unknown [id number] 2.16.840.1.001367.3.579.2. 1258 1945 Unknown [id number] 2.16.840.1.702566.3.579.2. 1259 1945 Unknown [id number] 2.16.840.1.772992.3.579.2. 1258 1945 Unknown [id number] 2.16.840.1.685793.3.579.2. 1258 1945 Unknown [id number] 2.16.840.1.891961.3.579.2. 125 1945 Unknown [id number] 2.16.840.1.265201.3.579.2. 1259 [employer] [facility] [id number] Medicare Medicare Nonpatient [id number] H38 [id number] Unknown [id number] 2.16.840.1.964930.3.579.2. 531 Unknown [id number] 2.16.840.1.894890.3.579.2. 531 Unknown [id number] 2.16.840.1.392944.3.579.2. 531 Unknown [id number] 2.16.840.1.391883.3.579.2. 531 Unknown [id number] 2.16.840.1.709845.3.579.2. 531 Unknown [id number] 2.16.840.1.597704.3.579.2. 531 Social History Date Type Detail Facility Unknown if ever smoked [facility] Other Start: 09-05-2023 Sex Assigned At F [facility] Start: 1945 Sex Assigned At Female F [facility] Start: 04-17-2023 End: 06-22-2023 Tobacco smoking status Never smoked tobacco (finding) [facility] Tobacco smoking status Never [facility] Start: 05-01-2023 Tobacco use and exposure Smokeless tobacco non-user [facility] Start: 09-05-2023 Alcohol intake Lifetime non-d yessica (finding) [facility] Start: 09-05-2023 History of Social function [facility] Start: 05-01-2023 Alcohol Comment caffeine intak e: 1-2 cups per day. [facility] Start: 1945 Sex Assigned At Not on file N [facility] Functional Status Date Assessment Result Facility 06-01-2023 Functional Status No [facility] 04-20-2023 Functional Status No [facility] Clinical Notes 12-21-2021 to 08-17-2023 Note [...] understanding and is agreeable to treatment plan. [facility] Other 12-12-2023 Evaluation note* Encounter Date Diagnosis [...] as needed for aches pains or fevers. [facility] Other 09-22-2023 NoteEchocardiology Procedure Exam Date/Time Accession # Ordering Echo Transthoracic 05/11/2023 11:40 EDT [id number] Portillo PIPER, Rahul Varner CPT code 19177 [id number] Reason for Exam (Echo Transthoracic Complete) I25.10;CAD Coronary artery disease Report Version: 1 Study ID: [id number] [id number] Adult Echocardiogram Report Name: TEA RAHMAN Study Date: 05/11/2023, 10: 55 AM Patient Location: [facility] : 1945 (MM/DD/YYYY) Gender: Female Age: 77 [...] Signed by: Rahul Salas MD Transcribed by: [facility] Technologist: [facility]05-03-2022 Evaluation note* Encounter Date Diagnosis Assessment [...] the ER for worsening symptoms or concerns [facility] Other Evaluation + Plan note Future Appointments Appointment Date:05/25/2023 03:15:00 PM Scheduled Provider:Rahul Salas MD [facility] [place] Appointment Type:Cardiology Follow Up (FT) Appointment Date:06/13/2023 01:20:00 PM Scheduled Provider:Lidya Almanzar MD [facility] Future App[facility]ments Appointment Date:06/06/2023 01:00:00 PM Scheduled Provider:[place] Location:[facility] Appointment Type:BH Therapy New Patient Appointment Date:06/22/2023 04:00:00 PM Scheduled Provider:Lidya Almanzar MD Location:[facility] Appointment Type: Open Appointment Date:06/29/2023 02:30:00 PM Scheduled Provider:Tonio Levy MD Location:[facility] Dig[facility] Appointment Type:[facility] New Patient Appointment Date:07/14/2023 09:30:00 AM Scheduled Provider: Location:[facility] App[facility]FM [facility] Future Appointments Appointment Date:06/13/2023 01:00:00 PM Scheduled Provider:[place] Location:[facility] Appointment Type:BH Therapy 60 Appointment Date:06/22/2023 04:00:00 PM Scheduled Provider:Lidya Almanzar MD Location:[facility] Appointment Type: Open Appointment Date:06/29/2023 02:30:00 PM Scheduled Provider:Tonio Levy MD Location:[facility] Dig[facility]ive Health Appointment Type:[facility] New Patient Appointment Date:07/14/2023 09:30:00 AM Scheduled Provider: Location:[facility] Appointment Type:FM Medicare Wellness [facility] evaluation + Plan note Future Appointments Appointment Date:08/10/2023 03:00:00 PM Scheduled Provider:Camelia LOW CNP Location:[facility] Appointment Type:Cardiology ED Follow Up (FT) [facility] evaluation + Plan note Future Appointments Appointment Date:11/13/2023 12:15:00 PM Scheduled Provider:Rahul Salas MD Location:[facility] Appointment Type:Cardiology Follow Up (FT) [facility] evaluation + Plan note Future Appointments Appointment Date:05/16/2024 01:00:00 PM Scheduled Provider:Rahul Salas MD Location:[facility] Appointment Type:Cardiology [facility] note[facility] InformationNort Lynk Other [employer] noteNo assessment information available [facility] Work Phone: [employer] note* Diagnosis Nausea- Primary Nausea alone documented [...] heart Hospitalization History see above surgical hx [facility] Other Hospital course Narrative No data available for this section [facility] No data available for this section [facility] No data available for this section [facility] Summary Purpose Family History No Family History [...] and content) DATE CREATED AUTHOR 02/13/2018 [facility] DATE CREATED AUTHOR AUTHOR'S ORGANIZ ATION 09/21/2022 [facility] DATE CREATED AUTHOR AUTHOR'S ORGANIZ ATION 08/27/2023 [facility] DATE CREATED AUTHOR AUTHOR'S ORGANIZ ATION 08/29/2023 [facility] DATE CREATED AUTHOR AUTHOR'S ORGANIZ ATION 09/29/2023 [facility] DATE CREATED AUTHOR AUTHOR'S ORGANIZ ATION 12/05/2023 [facility] DATE CREATED AUTHOR AUTHOR'S ORGANIZ ATION 02/10/2024 [facility] DATE CREATED AUTHOR AUTHOR'S ORGANIZ ATION 02/22/2024 [facility] DATE CREATED AUTHOR AUTHOR'S ORGANIZ ATION 03/09/2024 [facility] DATE CREATED AUTHOR AUTHOR'S ORGANIZ ATION 04/02/2024 [facility] EPIC REASON FOR VISIT [...] September 12, 2023 End: September 12, 2023 [employer] Relationship Specialty Start Date End Date Shaikh [...] BE BASED ON THE PRIMARY CLINICAL RECORDS. [facility]. provides no warranty or guarantee of the accuracy or completeness of information in this document.
--- NOTE | 2024-04-03 17:58 | ED_ITS ---
HPI HPI - General Adult General Chief complaint: Extremity Injury, Lower Stated complaint: POSS HIP FX Time Seen by Provider: 04/03/24 17:29 Source: patient and family Mode of arrival: ambulance Limitations: physical limitation History of Present Illness HPI narrative: Patient presents to ED from the [place] for evaluation of a known hip fracture on the left. Patient was here last night with a history of dementia is transferred from the [facility] care facility where she currently resides after she was found on the floor. It is unclear exactly how she fell. The patient denies any complaint of pain. The patient thinks that she was tossing and turning in bed and rolled out of bed. She has no chest pain or shortness of breath. She denies any neck pain or back pain. There is no injury noted to her head. She has no hip pain. She states she has left knee pain but that is not new. Upon arrival here today she still has some left knee pain but denies any hip pain But she does have some confusion at times and does seem to have some pain when I rotate her hip. Family states they talked to the orthopedic doctor who did her original surgery and he said this looks like a hip replacement is needed. Our orthopedic doctor reviewed it here and originally said home with nonweightbearing follow-up in the office. Family brought her back again because they really would prefer the hip replacement if possible and they wanted to transfer to [place]. Related Data Home Medications ?Medication ?Instructions ?Recorded ?Confirmed alprazolam 0.5 mg tablet 0.5 mg PO BID 12/03/23 04/03/24 carvedilol 12.5 mg tablet 12.5 mg PO Q12H 12/03/23 04/03/24 hydrocodone 5 mg-acetaminophen 325 1 tab PO Q6H PRN pain 12/03/23 04/03/24 mg tablet hydroxychloroquine 200 mg tablet 200 mg PO DAILY 12/03/23 04/03/24 levothyroxine 100 mcg tablet 112 mcg PO DAILY 12/03/23 04/03/24 docusate sodium 100 mg capsule 100 mg PO DAILY 01/27/24 04/03/24 escitalopram oxalate 5 mg tablet 5 mg PO DAILY 01/27/24 04/03/24 (Lexapro) aspirin 81 mg capsule 81 mg PO DAILY 02/23/24 04/03/24 ferrous sulfate 325 mg (65 mg 325 mg PO BID 02/23/24 04/03/24 iron) tablet (Ailyn-Time) hydrocortisone 2.5 % topical cream 1 applic FL BID PRN hemorrhoids 02/23/24 02/23/24 with perineal applicator (Procto-Med ) cephalexin 500 mg capsule mg 04/03/24 losartan 100 mg tablet mg 04/03/24 quetiapine 25 mg tablet mg 04/03/24 Previous Rx's ?Medication ?Instructions ?Recorded ondansetron 4 mg disintegrating 4 mg PO Q8H PRN nausea and 08/06/23 tablet vomiting 4 days #16 tabs ondansetron 4 mg disintegrating 4 mg PO Q6H PRN nausea and 12/03/23 tablet vomiting #12 tabs Allergies Allergy/AdvReac Type Severity Reaction Status Date / Time buspirone Allergy Unknown Unknown Verified 04/03/24 17:40 ciprofloxacin [From Cipro] Allergy Unknown Unknown Verified 04/03/24 17:40 nitrofurantoin Allergy Unknown Unknown Verified 04/03/24 17:40 [From Macrobid] fentanyl AdvReac Severe Anxiety Verified 04/03/24 17:40 prochlorperazine AdvReac Severe Vomiting Verified 04/03/24 17:40 [From Compazine] solifenacin AdvReac Severe Blurry Verified 04/03/24 17:40 Vision Opioid HPI Opioid Management Most Recent Opioid Data: Last Pain Scale 8 04/03/24 05:46 Review of Systems ROS Status of ROS 10 or more systems reviewed and unremark able except as noted in history and below PFSH PFS Social History Smoking status: Never smoker Exam Narrative Exam Narrative: General: alert, no acute distress Cardiovascular: regular rate and rhythm, normal peripheral perfusion. Respiratory: Lungs CTA, respirations non labored. Extremities: Pain with rotation of left leg. Patient Reports some pain in the knee and grimaces with rotation at the hip Normal distal pulses and sensation and motor Neurological: oriented x 2, Mild confusion Constitutional Vital Signs, click to edit/add: Last Vital Signs Temp 98.4 F 04/03/24 17:31 Pulse 96 H 04/03/24 17:31 Resp 18 04/03/24 17:31 BP 169/96 H 04/03/24 17:31 Pulse Ox 98 08/14/24 17:31 O2 Del Method Room Air 04/03/24 17:31 Course Vital Signs Vital signs: Vital Signs Temperature 98.4 F 04/03/24 17:31 Pulse Rate 96 H 04/03/24 17:31 Respiratory Rate 18 04/03/24 17:31 Blood Pressure 169/96 H 04/03/24 17:31 Pulse Oximetry 98 04/03/24 17:31 Oxygen Delivery Method Room Air 04/03/24 17:31 Temperature 98.4 F 04/03/24 17:31 Pulse Rate 96 H 04/03/24 17:31 Respiratory Rate 18 04/03/24 17:31 Blood Pressure 169/96 H 04/03/24 17:31 Pulse Oximetry 98 04/03/24 17:31 Oxygen Delivery Method Room Air 04/03/24 17:31 Medical Decision Making MDM Narrative Medical decision making narrative: I spoke to Dr. Greenberg, orthopedic doctor at [facility]. Patient and family preferred [facility]. He said he would be happy to help and take the patient for hip replacement if that is what the patient wants. I spoke to family and patient and they all reiterate that that is what she wants. He accepts the patient to ER to ER [facility] for most likely hip replacement. Patient and family are comfortable care plan for transfer. I spoke to the ER doctor who is also aware that she is coming and He is also agreeable with excepting the transfer Differential Diagnosis Differential Diagnosis: Hip fracture fall Medical Records Medical records reviewed: Yes I reviewed the patient's medical records Lab Data Lab results reviewed: Yes I reviewed the patient's lab results Discharge Plan Discharge Chief Complaint: Extremity Injury, Lower Clinical Impression: Acute UTI, Closed fracture of left hip Patient Disposition: [facility] Time of Disposition Decision: 18:16 Discharge Location: [facility] Med Condition: Fair Mode of Transportation: EMS Prescriptions / Home Meds: No Action ondansetron 4 mg tablet,disintegrating 4 mg PO Q8H PRN (Reason: nausea and vomiting) 4 Days Qty: 16 0RF alprazolam 0.5 mg tablet 0.5 mg PO BID carvedilol 12.5 mg tablet 12.5 mg PO Q12H hydrocodone-acetaminophen 5-325 mg tablet 1 tab PO Q6H PRN (Reason: pain) hydroxychloroquine 200 mg tablet 200 mg PO DAILY levothyroxine 100 mcg tablet 112 mcg PO DAILY Rx Instructions: orally daily; ondansetron 4 mg tablet,disintegrating 4 mg PO Q6H PRN (Reason: nausea and vomiting) Qty: 12 0RF docusate sodium 100 mg capsule 100 mg PO DAILY escitalopram oxalate [Lexapro] 5 mg tablet 5 mg PO DAILY hydrocortisone [Procto-Med HC] 2.5 % cream with perineal applicator 1 applic FL BID PRN (Reason: hemorrhoids) aspirin 81 mg capsule 81 mg PO DAILY ferrous sulfate [Ailyn-Time] 325 mg (65 mg iron) tablet 325 mg PO BID quetiapine 25 mg tablet cephalexin 500 mg capsule losartan 100 mg tablet Print Language: Maori Referrals: Shaikh Leung MD [Primary Care Provider] - 1 week
[2024-04-03] MEDS: ONDANSETRON 4 MG RAPDIS TABLET SL (20:01)
[2024-04-03] MEDS: MORPHINE SULFATE 2 MG/ML SYRINGE IM (20:02)
[2024-04-03 20:14] VITALS: BP 168/92; PULSE 81; O2SAT 94
== END 2024-04-03 20:14 | disposition short-term general hospital (02) ==
PROVIDERS: Emergency Provider Emergency Medicine; PCP Internal Medicine
DX: S72.012A Unspecified intracapsular fracture of left femur, initial encounter for closed fracture (principal); F03.90 Unspecified dementia, unspecified severity, without behavioral disturbance, psychotic disturbance, mood disturbance, and anxiety; W06.XXXA Fall from bed, initial encounter; N39.0 Urinary tract infection, site not specified; M48.061 Spinal stenosis, lumbar region without neurogenic claudication
CPT/HCPCS: 70450; 72125; 72131; 73502; 73700; 81001; 87086; 96372; 99285; J0696; J2060; J2270; Q0162

== ENCOUNTER 2025-07-04 08:19 | Emergency (ER) | payer MEDICARE, MEDICAID, SELFPAY ==
--- OUTSIDE RECORDS SUMMARY | 2024-01-02 07:45 | XMS_ITS ---
Author Organization [facility]ly [facility] vices Address [address] [place], [place] [id number] Care Team Providers Care Fmd Teacher Name Role Phone Ena Ramirez Unavailable [phone] REASON FOR VISIT 6 month f/u IBS, Hypothyroidism Social History Sex Assigned At : Social History Observation Description Sex Assigned At Female Encounters Encounter Location Date Provider Diagnosis Main [address] [place] [id number] 01/02/2024 Ena James Plan Of Treatment No Information Progress Notes * Tea RAHMANDOB: 5 (79 yo F)Acc No.[id number]:01/02/2024 Medical Note Patient: Tea SCHMIDT :?Ena Contrerasjason, DODOB:1945???Age:78 Y ???Sex:FemaleDate:01/02/2024hone:[phone]:[address] [place], [place] [address]ANA MARÍACAPE [id number] Subjective: * Chief Complaints: * 1 . 6 month f/u IBS, Hypothyroidism. * Medical History: Objective: * Vitals: Assessment: Plan: * Treatment: * Billing Information: * Visit Code: * Procedure Codes: * Electronic signature of Ena Ramirez , DO on 07/04/2025 at 09:12 AM ESTSign off status: Pending * Provider: Yvon Ramirez DO Date: 0 01/02/2024 Generated for Printing/Faxing/eTransmitting on:?07/04/2025 09:12 AM EST
--- OUTSIDE RECORDS SUMMARY | 2024-04-10 08:30 | XMS_ITS ---
Author Organization [facility] Address [address] [place] [address] Care Team Providers Care Septic Tank Servicer Name Role Phone Rehan Hogan [facility] [phone] REASON FOR VISIT LEFT HIP FX Encounters Encounter Location Date Provider Diagnosis [facility] [facility] [address] [place] [address] [address] 04/10/2024 Rehan Hogan Plan Of Treatment No Information Progress Notes * SIMA LEY SDOB: [birth year] (79 yo F)Acc No.[id number]:04/10/2024 Patient:?AVSIMA Jo :?Rehan Hogan, MDDOB:1945???Age:78 Y ???Sex:FemaleDate:4Phone:[phone]:[address] [facility] [address] [place], [place]-[id number] Subjective: * Chief Complaints: * 1 . LEFT HIP FX. * Medical History: Objective: * Vitals: Assessment: Plan: * Treatment: Forms: * Images: * Electronic signature of Rehan Hogan MD on 07/04/2025 at 09:11 AM ESTSign off status: Pending * Provider: Jo Hogan MD Date: 0 04/10/2024 Generated for Printing/Faxing/eTransmitting on:?07/04/2025 09:11 AM EST
--- OUTSIDE RECORDS SUMMARY | 2025-06-24 15:45 | XMS_ITS | Encounter Summary ---
Author Organization [facility] [employer] [facility] tem Address [id number] [address] [place] [address] Care Team Providers Care Rotary Derrick Operator Name Role Phone Leelee Wright MD Primary Care Provider [phone] Reason for Visit * ReasonCommentsFollow-up Encounter Details DateTypeDepartmentCare Team (Latest Contact Info)Jezrkiqsfzl20/04/2025 3:45 PM ESTOffice Visit [facility] [address] [place] [address] [place] [address] [place] [address] Twin العلي MD [facility] [place] [place] [address] Urge incontinence (Primary Dx); Interstitial cystitis Social History Tobacco UseTypesPacks/DayYears UsedDateSmoking Tobacco: NeverSmokeless Tobacco: NeverAlcohol UseStandard Drinks/WeekCommentsNo0 (1 standard drink = 0.6 oz pure alcohol)[facility] UtilitiesAnswerDate RecordedIn the past 12 months has the [employer], gas, oil, or water [employer] threatened to shut off services in your home?No 02/16/2024Social Connection and Isolation PanelAnswerDate RecordedIn a typical week, how many times do you talk on the phone with family, friends, or neighbors?More than three times a week05/05/2020How often do you get together with friends or relatives?More than three times a week05/05/2020How often do you attend congregation or rastafari services?Never05/05/2020Do you belong to any clubs or organizations such as congregation groups, unions, fraternal or athletic groups, or school groups?No05/05/2020How often do you attend meetings of the clubs or organizations you belong to?Never05/05/2020Are you , , , , never , or living with a partner?Cdjvanv9305/05/2020PHQ-2Answer Date RecordedTotal Gwkya078Fin[facility] [place] of Occupational Health - Occupational Stress QuestionnaireAnswerDate RecordedDo you feel stress - tense, restless, nervous, or anxious, or unable to sleep at night because yourmind is troubled all the time - these days?Not at all05/05/2020Exercise Vital SignAnswer Date RecordedOn average, how many days per week do you engage in moderate to strenuous exercise (like a brisk walk)?0 days05/05/2020On average, how many minutes do you engage in exercise at this level?0 min05/05/2020PRAPARE - TransportationAnswerDate RecordedIn the past 12 months, has lack of transportation kept you from medical appointments or from getting medications?No 02/16/2024In the past 12 months, has lack of transportation kept you from meetings, work, or from getting things needed for daily living?No02/16/2024 AUDIT-CAnswerDate RecordedQ1: How often do you have a drink containing alcohol? Never06/24/2025Q2: How many drinks containing alcohol do you have on a typical day when you are drinking?Patient does not drink06/24/2025Q3: How often do you have six or more drinks on one occasion?Never06/24/2025Housing InstabilityAnswer Date RecordedAre you worried or concerned that in the next two months you may not have stable housing that you own, rent or stay in as a part of a household? No4ChildcareAnswerDate RecordedDo problems getting childcare aide make it difficult for you to work or study?No05/05/2020EmploymentAnswerDate RecordedDo you need help finding a local career center and/or a training program?No 05/05/2020Hunger ScreeningAnswerDate RecordedWithin the past 12 months we worried whether our food would run out before we got money to buy more.Never True06/24/2025Within the past 12 months the food we bought just didn't last and we didn't have money to get more.Never True06/24/2025Purpose - LifeAnswerDate RecordedPurpose and direction in oixnSuyqcte93/21/2021CommentsNoSex and Gender InformationValueDate RecordedSex Assigned at BirthNot on fileLegal Sex Yzgmwf7703/26/2015 11:21 AM EDTGender IdentityNot on fileSexual OrientationNot on filedocumented as of this encounter Last Filed Vital Signs Vital SignReadingTime TakenCommentsBlood Pnruzote290/9106/24/2025 4:07 PM EST Prebz93243/04/2025 4:07 PM ESTTemperature--Respiratory Rate--Oxygen Saturation-- Inhaled Oxygen Concentration--Kqwood62.4 kg (175 lb)06/24/2025 4:07 PM ESTHeight 167.6 cm (5' 6 )06/24/2025 4:07 PM ESTBody Mass Index28.25108/24/2024 4:07 PM EST documented in this encounter Functional Status * AUDIT-C ScoreAnswerDate of LgaktlclizKwzcsl224/04/2025 4:04 PM Paris Jones CMA * QuestionAnswerDate of AssessmentAuthorQ1: How often do you have a drink containing alcohol?Never06/24/2025 4:04 PM Paris Jones CMAQ2: How many drinks containing alcohol do you have on a typical day when you are drinking? Patient does not drink06/24/2025 4:04 PM Paris Jones CMAQ3: How often do you have six or more drinks on one occasion?Never06/24/2025 4:04 PM Paris Jones CMA documented as of this encounter Progress Notes * Twin العلي MD - 06/24/2025 3:45 PM EST Images from the original note were not included. [address] [facility] [address] Patient: Tea Rahman Date of : 1945 Encounter Date: 06/24/2025 History of Present Illness: Chief Complaint: Follow Up The patient is a 79 y.o. female, an established patient, and is here for follow- up. She has a longstanding history of interstitial cystitis. Had been cared for by several prior urologists. She had been getting intravesical instillations about every 3-4 months. Previously had received [facility] instillations. More recently her last urologist was giving her a cocktail with Marcaine, Kenalog and heparin. That seems to work well for her. She had 2 prior hydrodistention in 2018 and 2022 which did not help much. In addition to that has urgency frequency and some urge incontinence. She had been given a prescription for trospium but did not take due to potential side effects. She was using Gemtesa 75 mg which did work well for her. She broke her hip in 2023 and was admitted after to a long-term rehab facility. With that they discontinued all of her medications. She uses 1 pad per day due to the urge incontinence. No dysuria. Finally has a history of having uric acid stones removed in 2022. She had been put on sodium bicarbbut stopped taking due to GI upset. Had a CT scan done November 2022 which I reviewed showing no stones. Has had no symptoms of stones since then. Does have chronic back issues and gets injections every 3-4 months She had restarted the Gemtesa. That did not make much of a difference and she subsequently tried intravesical instillations. That also has not changed her symptoms much still having ongoing issues with urinary frequency as well as a flare-up of her IBS. On further questioning she unfortunately has quite a bit of stress in her life with her granddaughter being diagnosed with advanced breast cancerin [place] as well as her who is on dialysis being evaluated for transplant. With the increased stress she had the flare-up we were both bladder and bowel symptoms. She has been started on Xanax 0.25 mg at night however that has not helped much. Has not had an a dose adjustment yet. She hada renal u/s and that was negative for hydro or mass Summary of old records: Urinalysis today: No results for input(s): EXTPOCURCO , EXTPOCURCH , EXTPOCAPP , EXTPOCURBS , EXTPOCURBIL , EXTPOCUKET , EXTPOCUSPG , EXTPOCUHGB , EXTPOCUPRO , EXTPOCUURO , EXTPOCULEU , EXTPOCUNIT , EXTPOCUWBC , EXTPOCUBLD , EXTPOCURBC , EXTPOCUCRY , EXTPOCUBAC , EXTPOCUTREP , EXTPOCUPH , EXTPOCUL EE in the last 72 hours. Last BUN and creatinine: Lab Results Component Value Date BUN 24 03/11/2025 Lab Results Component Value Date CREATININE 0.90 03/11/2025 Last PSA: No results found for: PSA No results found for: PROSTATICSP Additional Lab/Culture results: Imaging Reviewed during this Office Visit: (Results were independently reviewed by physician and radiology report verified) Past Medical, Family, and Social History Update: The following portions of the patient's history were reviewed and updated as appropriate: allergies, current medications, past family history, past medical history, past social history, past surgicalhistory and problem list. Past Medical History: Diagnosis Date Arthritis Coronary artery disease Disease of thyroid gland Fibromyalgia GERD (gastroesophageal reflux disease) Hemorrhoids 01/30/2024 Hiatal hernia Hypertension Interstitial cystitis Lupus Urinary tract infection Past Surgical History: Procedure Laterality Date APPENDECTOMY APPLICATION SPLINT UPPER EXTREMITY Left 02/16/2024 Performed by Tico Garcias MD at [facility] CABG PROCEDURE X 2 / EVH / TIMA N/A 05/08/2020 Performed by Washington Oropeza MD at [facility] CHOLECYSTECTOMY COLONOSCOPY Coronary angiogram and left ventricular gram/pressure N/A 05/06/2020 Performed by Cooper Briones MD at [facility] HYSTERECTOMY OPEN REDUCTION INTERNAL FIXATION HIP SCREW Left 02/16/2024 Performed by Tico Garcias MD at [facility] PARTIAL HIP ARTHROPLASTY Left 05/2024 Family History Problem Relation Age of Onset Diabetes Mother Heart attack Mother Heart attack Father Heart attack Sister Cancer Sister Heart attack Brother Heart disease Brother Diabetes Brother Heart attack Brother Heart disease Brother Diabetes Brother Heart disease Brother Heart disease Sister Deep vein thrombosis Sister Current Outpatient Medications Medication Sig Dispense Refill aspirin 81 mg Take 1 tablet (81 mg total) by mouth in the morning. cholecalciferol, vitamin D3, 5,000 units tablet Take 1 tablet (5,000 Units total) by mouth in the morning. cyanocobalamin 500 MCG tablet Take 1 tablet (500 mcg total) by mouth in the morning. docusate sodium (COLACE) 100 mg capsule Take 1 capsule (100 mg total) by mouth in the morning and 1capsule (100 mg total) before bedtime. escitalopram (LEXAPRO) 20 mg tablet Take 1 tablet (20 mg total) by mouth in the morning. famotidine (PEPCID) 20 mg tablet Take 1 tablet (20 mg total) by mouth in the morning. hydrOXYchloroQUINE (PLAQUENIL) 200 mg tablet Take 1 tablet (200 mg total) by mouth in the morning. levothyroxine (SYNTHROID, LEVOTHROID) 100 MCG tablet Take 1 tablet (100 mcg total) by mouth in the morning. LORazepam (ATIVAN) 0.5 mg tablet Take 1 tablet (0.5 mg total) by mouth every 6 (six) hours as needed for anxiety. losartan (COZAAR) 100 mg tablet Take 1 tablet (100 mg total) by mouth in the morning. 90 tablet 3 magnesium aspart,citrate,oxide (TRIPLE MAGNESIUM COMPLEX) 400 mg magnesium capsule Take 400 mg by mouth in the morning. melatonin (CIRCADIN) tablet Take 1 tablet (3 mg total) by mouth daily as needed. multivit-minerals/folic acid (ONE-A-DAY WOMEN'S 50 PLUS ORAL) Take 1 tablet by mouth in the morning. rOPINIRole (REQUIP) 0.25 mg tablet Take 1 tablet (0.25 mg total) by mouth in the morning. No current facility-administered medications for this visit. (All medications reviewed and updated by provider since last office visit or hospitalization) Allergies: Compazine [prochlorperazine], Ciprofloxacin hcl, Buspirone, Nitrofurantoin macrocrystal, Solifenacin, and Fentanyl Tobacco History: Social History Tobacco Use Smoking Status Never Smokeless Tobacco Never (If patient a smoker, smoking cessation counseling offered) Social History: Social History Substance and Sexual Activity Alcohol Use No Review of Systems: General: Negative for chills and fever. Cardiovascular: Positive for chest Pain Gastrointestinal: Positive for diarrhea -per HPI Physical Exam: BP (!) 151/91 Pulse 101 Ht 167.6 cm (5' 6 ) Wt 79.4 kg (175 lb) BMI 28.25 kg/m?? Assessment and Plan: Tea was seen today for follow-up. Diagnoses and all orders for this visit: Urge incontinence Interstitial cystitis Problem List Nervous and Auditory Interstitial cystitis Overview Currently controlled with [facility] instillations every 3-4 months. Will call fro instillation 01/31/24: Wants to hold off on [facility] instillations for now 12/10/2024: Well controlled with no additional intervention currently 04/16/25: Worsening symptoms. Has been under more stress than normal and requests a referral to psych. Symptoms similar to when she had bladder stones in the past. Will check UA/C&S, and US. She also requests [facility] of [facility] instillation that was performed in the office today. She will stop at the lab toleave a specimen 04/17/25: UA showed some Ca oxalate crystals. Will see what US shows 06/24/25: Ongoing OAB - all directly related to her stress. Offered anticholinergic but any intervention I do is only a patch. Her underlying anxiety is driving symtpoms. She was going to talk to Dr Wright to see if a dose adjustment can be made to the xanax first. Genitourinary Urge incontinence - Primary Overview Previously controlled using Gemtesa now with recurrent symptoms 12/10/2024: Plan for re trial Gemtesa. Thirty day prescription given 04/16/25: No improvement. See above plan Follow-up: Twin العلي MD This note was created with the assistance of a speech recognition program. While intending to generate a timely document that accurately reflects the content of the visit, no guarantee can be provided that every grammatical or spelling mistake has been or will be identified or corrected. Thank you for your understanding. documented in this encounter Plan of Treatment DateTypeDepartmentCare Team (Latest Contact Info)Advihvbmvgv40/28/2026 1:45 PM EDTOffice Visit [facility] [address] [place] [address] [place] [address] Twin العلي MD [address] [place] [address] 07/07/2026 1:15 PM ESTOffice Visit [facility] [address] [place] [address] [address] [facility] [place] [phone] Twin العلي MD [facility] [place] [address] documented as of this encounter Goals GoalPatient Goal TypeAssociated ProblemsRecent ProgressPatient-Stated?Author SN[facility] Kay Lai LSW Note: Evaluation of progress towards goal: await surgery documented as of this encounter Visit Diagnoses Diagnosis Urge incontinence- Primary Interstitial cystitis Chronic interstitial cystitis documented in this encounter Additional Health Concerns AssessmentNoted TimePHQ-9 Depression Total Score: 5:57 PM EDT documented as of this encounter Care Teams Team MemberRelationshipSpecialtyStart DateEnd Date Leelee Wright MD [address] [facility] [phone] PCP - GeneralFamily Urnwlnvt94/27/24 PILI GONZALEZ [address] [place] [address] Urology03/19/20documented as of this encounter
--- OUTSIDE RECORDS SUMMARY | 2025-07-01 09:02 | XMS_ITS | Continuity of Care Document ---
Author Organization [facility] Address [address] [place] [phone] Phone Care Team Providers Care Graphics Production Specialist Name Role Phone Leelee Wright MD Primary Care Provider Daxa Calderon APRN Attending Provider Avis Gomez-[place]ari[place] Attending Provider + NON STAFF Primary Care Provider Cornel Welch DO Attending Provider Care Teams Patient Care Team Team Status: Active Member Role/Relationship Status Dates NON STAFF Primary Care Provider Active Visit Care Team Team Status: Inactive Member Role/Relationship Status Dates Leelee Wright MD Primary Care Provider Active St art: April 02, 2025 End: April 02, 2025Padigna Calderon APRN PERSONAL TRAINER-CAttending Provider ActiveStart: April 02, 2025 End: April 02, 2025 Visit Care Team Team Status: Inactive Member Role/Relationship Status Dates TIKA Arriaga RN PERSONAL TRAINER-C Attending Provider Active Start: April 02, 2025 End: April 02, 2025 Visit Care Team Team Status: Inactive Member Role/Relationship Status Dates BARRY Calvillo-[place]ari[place] Attending Provider Active Start: June 25, 2025 End: June 25, 2025NON STAFFPrimary Care ProviderActiveStart: June 25, 2025 End: June 25, 2025 Patient Care Team Team Status: Inactive Member Role/Relationship Status Dates Cornel Clark DO Attending Provider Active Start: July 01, 2025 End: July 01, 2025NON STAFFPrimary Care ProviderActiveStart: July 01, 2025 End: July 01, 2025 Chief Complaint and Reason for Visit Chief Complaint Admit Date Dysuria, loose stool April 02, 2025 1 0:12am r30.0 April 02, 2025 10 :20am EPI F/U June 25, 2025 1 :02pm EPI- BILAT L5-- APPROVED # [id number] Jun 1:29pm Reason for Visit Admit Date Diarrhea April 02, 2025 10 :12am Dysuria April 02, 2025 10 :12am Cognitive impairment June 25, 2025 1:02pm Lumbar radiculopathy June 25, 2025 1:02pm Myalgia June 25, 2025 1 :02pm Allergies, Adverse Reactions, Alerts Allergen Type Severity Reaction Last Updated Verified Status ciprofloxacin Allergy Unknown rash July 012024 1:39pm Yes Active prochlorperazine Allergy Unknown throat swelling Jun 1:39pm Yes Active Social History Smoking Status Status Start Date End Date Date of Observa tion Never smoked tobacco (finding) June 21, 2018 11:21am Observation Status Observation Response Date of Response Legal Sex Female (finding) Sex Assigned At BirthFemaleDecember 1944 Family History Relationship Condition Age at Onset Recorded Date/T rafita brother Unknown fatherDeceasedUnknownHeart diseaseUnknownHypertensionUnknownmotherDeceased UnknownHypertensionUnknownHeart diseaseUnknownDiabetes mellitusUnknownson Diabetes mellitusUnknownsisterDeceasedUnknown Problems Active Problems Problem Diagnosis/Recorded Date Onset Date Stat us Lumbar radiculopathy March 02, 2025 1:06pm Unknown Active Lumbosacral radiculopathy March 11, 2025 11:21am Unkn own Active Myalgia March 02, 2025 1:06pm Unknown Activ e Diarrhea April 02, 2025 11:41am Unknown Ac tive Dysuria April 02, 2025 11:41am Unknown Ac tive Cognitive impairment March 02, 2025 1:05pm Unknown Active Medications Medication Status Dose Units Route Directions Qty Days Refills S tart Date Stop Date End Date Reason(s) Instructions Adherence Prednisone 10 mg tablet Discontinued 10 MG PO Teressa ly February 24, 2025 11:00pmJune 25, 2025 3:29pmLorazepam 0.5 mg tablet Discontinued0.5MGPODaily as neededFebruary 24, 2025 11:00pmJune 25, 2025 3:26pmRopinirole 0.25 mg tabletActive0.25MGPODailyJuly 2024 11:00pmComplies with drug therapyAspirin 81 mg elqrazAuytnfhibudk77SUBWTjdabGtal 2024 11:00pmAugust 2024 9:30amFerrous Sulfate 325 mg (65 mg iron) tablet,delayed release (DR/EC)Ulnotnwsgdmr768IXNIWpwviHijd 7th, 2025 11:00pm April 02, 2025 9:30amLosartan 100 mg przfjePnkwpp574VQDRNezgiUyvn 2024 11:00pmComplies with drug therapyEscitalopram Oxalate (Lexapro) 20 mg tablet Hpigkpukblla35DHIZUanofSnlo 7th, 2025 11:00pmAu2024 9:30am Levothyroxine 100 mcg tmxgvpsMnxvzp661WHLQRGojzrIoag 7th, 2025 11:00pmComplies with drug therapyMecobalamin (Vitamin B12) (B12 Active) 1,000 mcg tablet,bkaflaxiUzjfbgiwlggq7910BDGRLLxfpnNdbv 7th, 2025 11:00pmJune 25, 2025 3:05pmSertraline 50 mg tabletDiscontinuedMGPOAugust 2024 11:00pm June 25, 2025 3:33pmHydroxychloroquine 200 mg psoxofQcvjjgclasmf510HXTD April 01, 2025 11:00pmJune 25, 2025 3:08pmHydroxychloroquine 200 mg rahbgrHinyib129LYUX.COMPLEXJune 25, 2025 3:22bp425 mg orally; Take 2 tablets one day and then take 1 tablet the next.Complies with drug therapy Sertraline 50 mg ogrnhjJespxz43QKLSDgletPcphawtm 5th, 2025 3:32pmComplies with drug therapyAspirin 81 mg tablet,delayed release (DR/EC)Iqgabs99HFXJLojea June 25, 2025 12:00amComplies with drug therapyCyanocobalamin (Vitamin B- 12) 500 mcg gyqeviVbzkmv983NUAPZPbskjRscxeeuj 5th, 2025 12:00amComplies with drug therapyPrednisone 5 mg znoyrvCslifh56QYZDgx neededJune 25, 2025 12:00amComplies with drug therapyMelatonin 3 mg zhialzJqmyup0BMDDIdsdyHhaoavwl 5th, 2025 12:00amComplies with drug therapyAlprazolam 0.25 mg tabletActive0.25MG PODailyNovember 2024 12:00amComplies with drug therapyFamotidine (Pepcid Ac) 20 mg gvvlcjTecsxj90VTUAGohzsHfnhnogc 5th, 2025 12:00amComplies with drug therapyMagnesium Oxide (Magox) 400 mg (241.3 mg magnesium) wfzwpzUpoqkp154QGJB DailyJune 25, 2025 12:00amComplies with drug therapySertraline 25 mg tablet Eniygp08UODDQcndmZmhsouub 5th, 2025 12:00amComplies with drug therapy Cholecalciferol (Vitamin D3) 125 mcg (5,000 unit) fmjzmkFwgvfu661LQJLIQhsak June 25, 2025 12:00amComplies with drug fgvlsbcTnoqpttr-Xgp-Ghmz Fum-Folic Ac (One-A-Day Women's Complete) 18 mg iron- 400 mcg tabletActiveTABPONovem2024 12:00amComplies with drug therapyAcetaminophen (Tylenol Arthritis Pain) 650 mg tablet extended rvqtyyfMlewyt1344NUDYFbgqlLiemqbpx 5th, 2025 12:00amComplies with drug therapy Procedures Procedure Date Performed Status Urine Culture April 02, 2025 completed Relevant Diagnostic Tests and/or Laboratory Data Laboratory Results Test Collection Date/Time Result Date/Time Result Interpretation Reference Range Result Comment Performing Site Urine Color April 02, 2025 9:36am April 02, 2025 9:4 1am yellow Urine AppearanceAugust 2024 9:36amAugu2024 9:41amclearUrine Specific GravityAugust 2024 9:362024 9:41am>=1.030Urine pH April 02, 2025 9:36amAugu2024 9:41am6.0Urine Leukocyte Esterase April 02, 2025 9:36amAugust 2024 9:41amnegativeUrine NitriteAugust 2024 9:36amAugust 2024 9:41amNegativeUrine ProteinAugust 2024 9:36amAugust 2024 9:41amtraceUrine Glucose (UA)April 02, 2025 9:36am April 02, 2025 9:41amnegativeUrine KetonesAugust 2024 9:36amAugust 2024 9:41amnegativeUrine UrobilinogenAugust 2024 9:36amAugust 2024 9:41am0.2EU/dLUrine BilirubinAugust 2024 9:36amAugust 2024 9:41amnegativeUrine Occult BloodAugust 2024 9:36amAugust 2024 9:41am small Microbiology Results Procedure Source Result Collection Date/Time Result Date/Time Result Comment Performing Site Urine Culture Urine 2 Days April 02, 2025 10:20am April 04, 2025 11:32am [facility] [id number] [address] [place] [address] Vital Signs Vital Reading Result Reference Range Collection Date/Time Height 66 [in_i] April 02, 2025 9:80yySuxadf27.55 kgAugust 2024 9:20amBody Temperature 98.7 [degF]97.6-99.0August 2024 9:20amHeart Nyde438 /apj59-149IpzyfxApril 02, 2025 9:20amRespiratory rate18 /sbj78-61Daixup 2024 9:20amOxygen saturation by Pulse uscpcakn12 %95-100Au2024 9:20amBP Kvxkbqyo199 mm[Hg]100-140August 2024 9:20amBP Imlneiznw448 mm[Hg]60-100August 2024 9:20amBMI (Body Mass Index)29.3 kg/x7Dkkodo2024 9:42rpLomsds56 [in_i]June 25, 2025 12:91hmJzgfou31.20 kgNov2024 12:20pmHeart Rate89 /jby85-081NznftgsoJune 25, 2025 12:20pmRespiratory rate18 /xor62-95WxwbnplzJune 25, 2025 12:20pmOxygen saturation by Pulse mgotdwec96 %95-100Nov2024 12:20pmBP Nbefyzyv767 mm[Hg]100-140June 25, 2025 12:20pmBP Fembuvusp84 mm[Hg]60-100Nov2024 12:20pmBMI (Body Mass Index)27.1 kg/b8NbglbpkvJune 25, 2025 12:20pmHeart Rate94 /myz23-209LotqaiupJuly 01, 2025 1:37pmOxygen saturation by Pulse %95-100July 01, 2025 1:37pmBP Pkckzgnz582 mm[Hg]100-140November 2024 1:37pmBP Hwozbklsl97 mm[Hg]60-100November 2024 1:37pm Advance Directives Advance Directive Response Recorded Date/ Time Advance Directives No July 24, 2017 4:29pm Insurance Providers Guarantor Tea Rahman Address [address] [facility] [address]Ppbxqff Info.Home Phone: Payer Group Member ID Coverage Type Subscriber Relationship to Subscriber Effective Date Expiration Date Jordi ABAD Id: [id number] Nicholas Id: [id number] [address] [facility] [address] Home Phone: Medicaid [id number] S Nicholas Id: [id number] [address] [facility] [address] Home Phone: SelfMedicare Nonpatient [id number] S Nicholas Id: [id number] [address] [facility] [address] Home Phone: SelfAnthem [facility] Retired Id: [id number] S Nicholas Id: [id number] [address] [facility] [address] Home Phone: SelSheryl Lehman Dual Adv Retired Id: [id number] S Nicholas Id: [id number] [address] [facility] [address] Home Phone: SelfAARP Health Claims [id number] S Nicholas Id: [id number] [address] [facility] [address] Home Phone: Self Encounters Encounter Location(s) Arrival/Admit Date Discharge/Departure Date Discharge/Departure Disposition Provider(s) Departed Physician/ Provider Office Visit -[facility] [place] April 02, 2025 10:12am April 02, 2025 10:58am Discharged to home care or self care (routine discharge) Daxa Calderon APRN Departed Referred -[facility] April 02, 2025 10:20am April 02, 2025 10:21am Discharged to home care or self care (routine discharge) Daxa Calderon APRN Departed Physician/ Provider Office Visit -[facility] [place] June 25, 2025 1:02pm June 25, 2025 2:08pm Discharged to home care or self care (routine discharge) Avis Gomez APRN-SED HIGH SCHOOL TEACHER-C Departed Physician/ Provider Office Visit -[facility] [place] July 01, 2025 1:29pm July 01, 2025 2:01pm Discharged to home care or self care (routine discharge) Luiz Ovalle DO Recent Diagnosis Onset Date Admit Date Diarrhea Unknown April 02 10:12am Dysuria Unknown April 02 10:12am Cognitive impairment Unknown June 1:02pm Lumbar radiculopathy Unknown June 1:02pm Myalgia Unknown June 25 1:02pm Assessments Diagnosis Onset Date Resolution Status Admit Date Diarrhea acuteAugust 2024 10:12amDysuriaacuteAugust 2024 10:12amCognitive impairmentchronicT.[facility] 20[facility] 1:02pmLumbar radiculopathychronicNov2024 1:02pmMyalgiachronicJune 25, 2025 1:02pm Plan of Treatment Author Daxa Calderon [facility] 2024 11:43amUrine dip is positive for blood, no WBC, nitrates. Advised that urine will be sent for culture and will call her when the results are back. She is encouraged to push fluids, practice proper hygiene including wiping front to back. Follow up with urology as well. Reports hx of IBS. Advised to follow up with PCP in 1 week if no improvement. Voices understanding. Author Avis Gomez [facility] 2024 5:38pmMs. Josiah is a 79-year-old female with a history of cognitive impairment. The patient has, overall, reported some cognitive decline over the years (primarily short-term memory difficulty and forgetfulness). However, she currently lives at home and remains independent with all ADLs. She is not driving but otherwise denies any significant functional disability in regard to her cognition. I believe this may represent mild cognitive impairment (MCI). Though, I would also consider the possibility of pseudodementia secondary to severe anxiety or medication side effects from Xanax negatively impacting her cognitive function. The patient did previously present with altered mental status and a significant cognitive change following left hip surgery in January 2024. CT of the brain on 02/18/24 revealed no acute intracranial abnormality but diffuse cerebral volume loss and sequelae of chronic microangiopathy. B12 level and TSH on 02/18/24 were within normal limits. She spent a month in the [facility] where they discontinued Xanax, Seroquel, and hydroxychloroquine. Daughter states the patient had substantial improvement in her cognition while there. MOCA score on 07/02/24 was 19/30 (improved from prior score of 9/30 on 03/28/24) which supports the likelihood of psychiatric conditions and medication side effects impacting her cognition. Subjectively stable today. PLAN: - I recommended referral for neuropsychological evaluation to help characterize the patient's symptoms, clarify diagnosis, and guide treatment. Patient states she would be open to this in the future but declines at this time, as she is currently under really a large amount of stress - No driving for now - Try to ensure adequate sleep (at least 7 to 8 hours per night), regular physical exercise as tolerated, and compensatory memory tools - Follow up closely with PCP to help improve management of anxiety - Minimize the use of medications with FOOD SCIENCE TECHNICIAN side effects (such as opioid pain medications and benzodiazepines) if possible It is my impression that the patient has lumbosacral radiculopathy. BLE EMG on 11/17/20 revealed mild bilateral L5 radiculopathies. MRI of the lumbar spine on 03/18/21 revealed multilevel DDD with neural foraminal narrowing, worse at L4-L5. Bilateral L5 epidural injections on 03/11/25 were again highly effective (> 50% pain reduction with effects lasting > 3 months). The patient's pain has since started to return, and she would like to proceed with repeat injections to help improve her quality of life and functional ability. She remains active at home per her report. She is able to perform basic household tasks but does have some limitations due to her back pain. For example, she cannot mow the lawn or perform extensive gardening anymore. PLAN: - Repeat bilateral L5 epidural injections are scheduled for 07/01/2025. Risks including but not limited to epidural hematoma, contrast reaction, infection, cumulative steroid dose risk, reduced bone mineral density, weakness, paralysis, and discomfort were reviewed with the patient. The patient verbalizes understanding and wishes to proceed - Will attempt to space out the intervals between epidural injections as much as possible to help minimize steroid exposure - Continue regular physical activity as tolerated Tenderness to palpation of the bilateral trapezius and lumbosacral paraspinal muscles is identified on clinical exam. The patient has had a positive response to trigger point injections previously. Tizanidine was not tolerated in the past due to side effects. PLAN: - Consider repeat trigger point injections in the future as indicated. Declined today Diagnoses and treatment plan discussed. The patient and her qnhdsd-jn-wkn verbalized understanding and are agreeable to the plan. All questions answered. Future Tests Future scheduled test information is unavailable Pending Tests Pending diagnostic test information is unavailable Future Visits Future appointment information is unavailable Future Procedures Future procedure information is unavailable Future Medications Future medication information is unavailable Patient Instructions Patient instructions are unavailable
[2025-07-04 08:25] VITALS: BP 167/97; PULSE 111; TEMP 36.8; O2SAT 95; BMI 25.8
--- NOTE | 2025-07-04 08:25 | ECG_ITS ---
[facility] Test Date: 2025-07-04 Pat Name: SIMA LEY Department: Room: - Gender: Female Business Development Assistant: : 1945 Requested By: [id number] Order Number: [id number] [place] MD: SINAN SELLERS M.D. Measurements Intervals [place] Rate: 103 P: 44 AK: 138 QRS: -14 QRSD: 90 T: 119 QT: 332 QTc: 392 Interpretive Statements 1120 Sinus tachycardia 3114 Cannot rule out anterior myocardial infarction, age undetermined 5234 Left ventricular hypertrophy with repolarization abnormality 9150 abnormal ECG Compared to ECG 07/18/2023 13:27:47 Myocardial infarct finding now present Left ventricular hypertrophy now present Electronically Signed On 07-04-2025 19:17:47 EST by SINAN SELLERS M.D.
[2025-07-04 09:05] LABS: Hematocrit 42.4 % (36.0-48.0); Hemoglobin 13.8 g/dL (12.0-16.0); Immature Granulocytes Abs Auto 0.02 10^3/uL (0.00-0.03); Immature Granulocytes Pct Auto 0.2 % (0.0-0.5); Lymphocytes Absolute Auto 0.7 10^3/uL (1.2-3.8); Mean Corpuscular HGB Conc 32.5 g/dL (29.9-35.2); Mean Corpuscular Hemoglobin 34.4 pg (26.7-34.0); Platelet Count 243 10^3/uL (150-450); Red Blood Count 4.01 10^6/uL (4.20-5.40); White Blood Count 11.7 10^3/uL (4.0-11.0)
[2025-07-04 09:06] LABS: Glucose Urine UA NEGATIVE (NEGATIVE)
--- OUTSIDE RECORDS SUMMARY | 2025-07-04 09:11 | XMS_ITS | Clinical Summary ---
Author Organization [facility] Address [address] [place], [place] [address] Care Team Providers Care Hand Bander Name Role Phone Unavailable Primary Care Provider Unavailabl e Allergies Active AllergyReactionsCriticalityNoted DateCommentsProchlorperazine Edisylate Ezfwkrbnpon43/09/2007 Medications MedicationSigDispense QuantityRefillsLast FilledStart DateEnd DateStatus ASPIRIN 81 MG TAB Take one(1) tablet daily.ctive SYNTHROID 125 MCG TAB Take one(1) tablet daily.ctive LISINOPRIL 20 MG TAB Take one(1) tablet daily.ctive NEXIUM 40 MG CAP Take one(1) capsule daily.ctive Social History Tobacco UseTypesPacks/DayYears UsedDateSmoking Tobacco: Never Assessed CommentsNoSex and Gender InformationValueDate RecordedSex Assigned at BirthNot on fileLegal XpcKnzaki16/02/2012 8:06 AM ESTGender IdentityNot on fileSexual OrientationNot on file Last Filed Vital Signs Vital SignReadingTime TakenCommentsBlood Xrjussoy738/8404 12:40 PM EDT Btjlv0723 12:40 PM NQQLrkrimvbkdn36.2 ??C (97.1 ??F)09/29/2006 9:00 AM ESTRespiratory Rate--Oxygen Saturation--Inhaled Oxygen Concentration--Nneraf43.9 kg (185 lb)09/29/2006 9:00 AM MZCMggojk491.6 cm (5' 6 )09/29/2006 9:00 AM EST Body Mass Index29.8609/29/2006 9:00 AM EST Plan of Treatment Health MaintenanceDue DateLast DoneCommentsAnxiety Lqeklvmxu94/26/1963Depression Ioualzrbu19/26/1963DTaP,Tdap,Td Vaccine (1 - Tdap)1964Pneumococcal Vaccine: 50+ (1 of 1 - PCV)1995Shingrix Vaccine (1 of 2)1995Diabetes Nxegvihem01Bone Density Lacfsfnab60/26/2010RSV Vaccine (1 - 1- dose 75+ series)2020Advance Directive Opzdkwjbda22/01/2025Covid-19 Vaccine (1 - season)2025Influenza Vaccine (#1)2025 Procedures Procedure NamePriorityDate/TimeAssociated DiagnosisCommentsBASIC METABOLIC PANEL Ihjypqp0410/20/2006 9:43 AM EST Hematuria from Last 3 Months or Most Recently Relevant to Health Maintenance Results * BASIC METABOLIC PNL (10/20/2006 9:43 AM EST)ComponentValueRef RangeTest Method Analysis TimePerformed AtPathologist FyiuqmgnsPfvtlug5511 - 100 mg/dLMERCER [facility] INTVPDZZXMKEN546 - 25 mg/dLOUR [facility]AD[facility] Creatinine0.80.7 - 1.4 mg/dLOUR LADY OF MER[facility] ANQYCXBZHYNmcfyp309476 - 148 mmol/LCASHT[facility]UL[facility] MAIN LABORATORYPotassium4.73.5 - 5.0 mmol/LCASHTABULA [facility]IN VGDOJRYWJSFwnahajr83671 - 110 mmol/LCASHTABULA [facility] RUOBXCXMISNK20714 - 32 mmol/LCASHTABULA [facility] MAIN LABORATORYAnion Aaj917 - 15 mmol/LCASHTABULA [facility] MAIN LABORATORYCalcium9.78.5 - 10.5 mg/dLOUR LADY OF MERCY [facility] LABORATORYSpecimen (Source)Anatomical Location / Laterality Collection Method / VolumeCollection TimeReceived TimeBlood specimen (specimen)BLOOD SPECIMEN / Iedwqgd0910/20/2006 9:43 AM EST Narrative Authorizing ProviderResult TypeResult StatusCourtjefferson Mendez MDLABORATORYFinal ResultPerforming OrganizationAddressCity/State/ZIP CodePhone Number [facility] [address] [place] [address] from Last 3 Months or Most Recently Relevant to Health Maintenance Insurance
--- OUTSIDE RECORDS SUMMARY | 2025-07-04 09:11 | XMS_ITS | Clinical Summary ---
Author Organization [facility] Address [address] [place] [address] Care Team Providers Care Character Actor Name Role Phone Cornel Clark DO Unavailable [phone] Doris Go HAND ICER Unavailable [phone] Avis Gomez HAND ICER Unavailable [phone] Leelee Wright MD Primary Care Provider [phone] Allergies Active AllergyReactionsCriticalityNoted DateCommentsAtorvastatinOtherLow 08/24/20235583BuhruvarsOlcyois08/29/2022 Other reaction(s): Unknown UrjduckbsfpfxTcfixnl50/25/2020Nitrofurantoin Mbouurppwljz14/16/2017 Nitrofurantoin Monohyd Macro10/17/2016ProchlorperazineAnaphylaxis,GI intolerance ,Other,Swelling,MxhkhxlRufv29/09/4621PfqqjmolfiuTlcjfrq55/15/2022 BLURRY VISION, CONSTIPATION AND DIFFICULTY URINATING Medications MedicationSigDispense QuantityRefillsLast FilledStart DateEnd DateStatus aspirin (ASPIR) 81 MG EC tablet 1 (one) time each day at the same time.Active losartan (Cozaar) 100 MG tablet Take 100 mg by mouth in the morning.10/04/2022ctive nitroglycerin (Nitrostat) 0.4 MG SL tablet DISSOLVE 1 TAB UNDER TONGUE FOR CHEST PAIN - IF PAIN REMAINS AFTER 5 MIN, CALL 911 AND REPEAT DOSE.MAX 3 TABS IN 15 MINUTESActive levothyroxine (Synthroid, Levoxyl) 100 MCG tablet Indications:Hypothyroidism, unspecified typeTake 1 tablet (100 mcg) by mouth in the morning. Take before meals. 90 tablet ctive famotidine (Pepcid) 20 MG tablet Take 20 mg by mouth DailyActive polyethylene glycol, PEG, 3350 (Glycolax) 17 GM/SCOOP powder Take by mouth 1 (one) timeActive melatonin 3 MG tablet Take 3 mg by mouth as needed at bedtime (sleep)Active cholecalciferol (Vitamin D-3) 125 MCG (5000 UT) tablet Take 5,000 Units by mouth DailyActive docusate sodium (Colace) 100 MG capsule Take 100 mg by mouth in the morning and 100 mg before bedtime.Active acetaminophen (Tylenol) 325 MG tablet Take 325 mg by mouth every 6 (six) hours if needed for mild painActive cyanocobalamin (Vitamin B-12) 500 MCG tablet Take by mouth DailyActive escitalopram (Lexapro) 20 MG tablet Take 20 mg by mouth DailyActive ferrous sulfate 325 (65 Fe) MG tablet Take 325 mg by mouth in the morning. Take with meals.Active LORazepam (Ativan) 0.5 MG tablet Take 0.5 mg by mouth 2 (two) times a day as needed for anxietyActive Magnesium 400 MG capsule Take 400 mg by mouth DailyActive diclofenac sodium (Voltaren) 1 % gel Apply 2 g topically 3 (three) times a day as needed for painActive rOPINIRole (Requip) 0.25 MG tablet Take 0.25 mg by mouth DailyActiveHospital, Clinic, or Other Facility Administered MedicationOrdered DoseRouteFrequencyStart DateEnd DateStatus bupivacaine PF (Marcaine) 0.25 % injection 15 mg Indications:Jlnonge72 keQXQisw22/21/2024ctive Active Problems ProblemNoted DateDiagnosed DateUrinary symptom or sign02/14/2024 Assessment & Plan (02/14/2024 12:25 PM EDT): Reports urgency/frequency. No dysuria. Hx of interstitial cystitis, and this could be from that. Check UA, if c/w UTI, will call in an abx. External /11/2024 Assessment & Plan (02/14/2024 12:24 PM EDT): External hemorrhoids, associated with rectal pressure/pain/discomfort. No bleeding. Did not use hydrocortisone suppository - agreeable to use it now. No new recommendation/specific plan of care by Surgery. Conservative measures only. Assessment & Plan (01/30/2024 12:14 PM EDT): External hemorrhoids, associated with rectal pressure/pain/discomfort. No bleeding. Trial of hydrocortisone suppository. Refer to General surgery - has seen dr madden in the past. JUANCARLOS (generalized anxiety disorder)01/17/2024 Assessment & Plan (02/14/2024 10:58 AM EDT): Improved on Lexapro 10 mg. She is feeling better but still quite anxious. She is also on Xanax and uses it as needed. Assessment & Plan (01/17/2024 1:55 PM EDT): Poorly controlled anxiety, reports excessive worrying. She is tearful today and feels overwhelmed due to anxiety. She is currently on xanax as needed. I will add lexapro 5 mg. Follow up with her in 2 weeks and will up titrate based on tolerability/efficacy. Yyuwdrjswpyh53/19/0067Xpytuovbu52/19/2024Lumbar jkgnwagzwoned37/19/2024arpal tunnel syndrome on both sides01/07/2024Myalgia, other site01/07/2024Leg weakness, dqpnnuykc40/19/8209Ozjojdhgsnj15/19/2024Irritable bowel syndrome with ekitehfaztpp44/02/2024 Assessment & Plan (02/14/2024 12:23 PM EDT): Disabling symptoms. She routinely struggles with constipation but then sometimes develop diarrhea from excessive laxative use. No improvement with colace, metamucil, miralax and Linzess. Has BM every 3-4 days then followed by reactionary diarrhea. Will call in trulance for patient. Patient counseled and educated on adverse effects, drug interactions and to reach out to office/pharmacy if questions or concerns related to new medications. Refer to GI. Assessment & Plan (01/30/2024 12:13 PM EDT): Disabling symptoms. She routinely struggles with constipation but then sometimes develop diarrhea from excessive laxative use. Recent ED visit for diarrhea, rectal pressure due to external hemorrhoids. On Linzess currently but its not quite working for her. I asked her to use Metamucil daily and see if it helps. Refer to GI. Assessment & Plan (01/23/2024 1:34 PM EDT): Disabling symptoms. She routinely struggles with constipation but then sometimes develop diarrhea from excessive laxative use. She is currently on miralax daily and colace. She has BM every 2-3 days followed by watery stools. She experiences abdominal pain/bloating and her quality of life is sig affected by her symptoms. Will order Linzess for her. Assessment & Plan (01/17/2024 1:53 PM EDT): Disabling symptoms. She routinely struggles with constipation but then sometimes develop diarrhea from excessive laxative use. She is currently on miralax daily. I will add colace to her medications. If no improvement, we can add lizness for her. Complicated UTI (urinary tract infection)12/21/2023 Assessment & Plan (12/21/2023 2:36 PM EDT): Complicated UTI - had ED visit earlier today for lower abdominal pain. CT abd showed multiple stones in bladder and mild distal ureteral dilatation possibly from recently passed ureteral stone. She also had abnormal UA c/w UTI. And was prescribed Bactrim She has an appt with Urology next Monday She reports her abd pain is more or less resolved. Patient encouraged to take Bactrim and finish her abx. And call office if there is change in her clinical status. Nausea in adult11/09/2023 Assessment & Plan (11/09/2023 1:28 PM EDT): Intermittently needs to use zofran as needed for nausea. Will call it in. She uses once or twice a week due to GERD. Acute cystitis with rpwlapskt03/19/2024 Assessment & Plan (10/09/2023 12:45 PM EST): Patient reported dysuria, urgency and polyuria x 1 week In office UA c/w UTI. Will order urine cultures due to hx recurrent UTI. Treat with PO Cefdinir. Herpes zoster without lhbuknvvwidx48/19/2024 Assessment & Plan (10/09/2023 12:46 PM EST): Patient here for rash - appearance c/w Shingles. Rash/pain is improving. Conservative measures/care. No need for anti viral as over 7 days since rash first appeared. Will discussed Shingles vaccine next appointment. Mudfdesmqoki25/16/2024Gastroesophageal reflux coelibk0209/05/2023 Assessment & Plan (11/09/2023 1:28 PM EDT): On nexium. C/w same Generalized anxiety ifgkdrjp70/16/2024 Assessment & Plan (01/30/2024 12:14 PM EDT): Improved a little with Lexapro. Increase to 10 mg. Tolerating it well. Denies adverse effects. HTN (hypertension)09/05/2023 Assessment & Plan (11/09/2023 1:23 PM EDT): At goal. Tolerating Anti hypertensive w/o adverse effects. Denies lightheadedness, dizziness, syncope, presyncope. Patient encouraged to continue with home BP monitoring and call office if he experiences orthostatic symptoms or persistently elevated BP. C/w losartan, coreg. No changes made. C/w same regimen for now. Assessment & Plan (10/09/2023 12:42 PM EST): Above goal today but usually well controlled. Tolerating Anti hypertensive w/o adverse effects. Denies lightheadedness, dizziness, syncope, presyncope. Patient encouraged to continue with home BP monitoring and call office if he experiences orthostatic symptoms or persistently elevated BP. C/w losartan, coreg. Likely situational as she was nervous about getting sick again and overall feels unwell. No changes made. C/w same regimen for now. Assessment & Plan (09/05/2023 4:28 PM EST): BP well controlled. On average less than 130/90. Tolerating Anti hypertensive w/o adverse effects. Denies lightheadedness, dizziness, syncope, presyncope. Patient encouraged to continue with home BP monitoring and call office if he experiences orthostatic symptoms or persistently elevated BP. C/w losartan, coreg. Ibepvpcdsfxszo43/16/6538Lgxshjqqpazwgv16/16/2024 Assessment & Plan (02/14/2024 10:59 AM EDT): TSH at goal 09/13,. C/w tirosint. Check TSH. Assessment & Plan (11/09/2023 1:24 PM EDT): TSH at goal 24,. C/w tirosint. Assessment & Plan (09/05/2023 4:27 PM EST): S/p thyroidectomy. On levothyroxine Check TSH. 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 Patient was prescribed Dennis to use as needed. She usually stretches her Dennis supply to a few months. Never asked for early refills and it seems like she has been very consistent and careful with opioid prescription based on oars review Will call in Dennis for her. Assessment & Plan (09/05/2023 4:28 PM EST): Uses HCQ and following Rheumatology. Tbuiadlkdmuytx20/16/2024oronary artery disease involving [place] coronary artery of [place] heart without angina xekpyciw64/16/2024 Assessment & Plan (09/05/2023 4:29 PM EST): S/p CABG 3 years ago. Asymptomatic. Denies CP, SOB. On ASA, Coreg. Not on statin due to intolerance. Encounter to establish care with new kaxrpr16/ Assessment & Plan (09/05/2023 4:28 PM EST): New Patient, here to establish care. Reviewed medical, surgical and social hx. Reviewed available old records. Reviewed and updated medication list. Vitamin D fejimltpyu17/16/2024 Assessment & Plan (09/05/2023 4:28 PM EST): Not on any Vit D supplements currently. Check levels. Encounter to establish care4Chronic interstitial pucnxtzw81/10/2017 Assessment & Plan (01/17/2024 1:53 PM EDT): Chronic interstitial cystitis. Follows Urology. -started seeing dr patricio Assessment & Plan (11/09/2023 1:24 PM EDT): Chronic interstitial cystitis. Follows Urology. Encounters DateTypeDepartmentCare PtfgTtlrjetfxuc45/09/2025 10:30 AM EDTOffice Visit [facility] [address] [place] [address] Julien Pardo PA Acute pain of left knee (Primary Dx); Arthritis of left knee04/29/2025amboo flowsheet [facility] [address] [place] [address] Julien Pardo PA 04/29/2025Travelfrom Last 3 Months Family History Medical HistoryRelationNameCommentsCoronary artery diseaseFatherHeart disease FatherHeart failureFatherHypertensionFatherHypertensionMaternal Grandfather HypertensionMaternal GrandmotherCoronary artery diseaseMotherDiabetesMother HypertensionMotherDiabetesPaternal GrandfatherHypertensionPaternal Grandfather HypertensionPaternal GrandmotherCoronary artery diseaseSiblingDiabetesSibling HypertensionSiblingRelationNameStatusCommentsFatherDeceasedMaternal Grandfather Maternal GrandmotherMotherDeceasedPaternal GrandfatherPaternal Grandmother Sibling Social History Tobacco UseTypesPacks/DayYears UsedDateSmoking Tobacco: NeverPassive Smoke Exposure: NeverSmokeless Tobacco: Never Tobacco Cessation:Counseling Given: No Alcohol UseStandard Drinks/WeekCommentsNever0 (1 standard drink = 0.6 oz pure alcohol)caffeine intake: 1-2 cups per day.B1300 Health LiteracyAnswerDate RecordedHow often do you need to have someone help you when you read instructions, pamphlets, or other written material from your doctor or pharmacy? Xljaovscs36/27/2024Humiliation, Afraid, Rape, and Kick questionnaireAnswerDate RecordedWithin the last year, have you been afraid of your partner or ex-partner?No02/15/2024Within the last year, have you been humiliated or emotionally abused in other ways by your partner or ex-partner?No02/15/2024 Within the last year, have you been kicked, hit, slapped, or otherwise physically hurt by your partner or ex-partner?No02/15/2024Within the last year, have you been raped or forced to have any kind of sexual activity by your part ner or ex-partner?No02/15/2024Social Connection and Isolation PanelAnswerDate RecordedIn a typical week, how many times do you talk on the phone with family, friends, or neighbors?Twice a week02/15/2024How often do you get together with friends or relatives?Twice a week02/15/2024How often do you attend nondenominational or yazdanism services?Never02/15/2024o you belong to any clubs or organizations such as nondenominational groups, unions, fraternal or athletic groups, or school groups?No 02/15/2024How often do you attend meetings of the clubs or organizations you belong to?Never02/15/2024re you , , , , never , or living with a partner?Troyriv1802/15/2024UDIT-CAnswerDate RecordedQ1: How often do you have a drink containing alcohol?Never02/15/2024Q2: How many drinks containing alcohol do you have on a typical day when you are drinking? Patient does not drink02/15/2024Frequency of Binge DrinkingNot on file02/15/2024 Overall Financial Resource Strain (CARDIA)AnswerDate RecordedHow hard is it for you to pay for the very basics like food, housing, medical care, and heating?Not hard at all02/15/2024HQ-2AnswerDate RecordedPatient Health Questionnaire-2 Ydmkl619[facility] [place] of Occupational Health - Occupational Stress QuestionnaireAnswerDate RecordedDo you feel stress - tense, restless, nervous, or anxious, or unable to sleep at night because yourmind is troubled all the time - these days?Very much02/15/2024Exercise Vital SignAnswerDate RecordedOn average, how many days per week do you engage in moderate to strenuous exercise (like a brisk walk)?1 day02/15/2024On average, how many minutes do you engage in exercise at this level?10 min02/15/2024Hunger Vital SignAnswerDate Recorded Within the past 12 months, you worried that your food would run out before you got the money to buymore.Never true02/15/2024Within the past 12 months, the food you bought just didn't last and you didn't have money to get more.Never true 02/15/2024RAPARE - TransportationAnswerDate RecordedIn the past 12 months, has lack of transportation kept you from medical appointments or from getting medications?No02/15/2024In the past 12 months, has lack of transportation kept you from meetings, work, or from getting things needed for daily living?No 02/15/2024Housing Stability Vital SignAnswerDate RecordedIn the last 12 months, was there a time when you were not able to pay the mortgage or rent on time?No 02/15/2024In the past 12 months, how many times have you moved where you were living?t any time in the past 12 months, were you homeless or living in a group home (including now)?No02/15/2024CommentsUnknownSex and Gender InformationValueDate RecordedSex Assigned at BirthNot on fileLegal SexFemale 11/02/2022 7:16 PM EDTGender IdentityNot on fileSexual OrientationNot on file Last Filed Vital Signs Vital SignReadingTime TakenCommentsBlood Covqcznj581/9203/11/2024 11:43 AM EST Xmfdt149110/22/2024 11:43 AM HEMXuxyjrovzrw93.6 ??C (97.9 ??F)02/14/2024 10:44 AM EDTRespiratory Fcgo112011/08/2023 3:53 PM EDTOxygen Qnfcbkerno72%10/22/2024 11:43 AM ESTInhaled Oxygen Concentration--Yljmzx69.4 kg (164 lb)09/23/2024 11:20 AM YZSZbzeoc016.6 cm (5' 6 )02/14/2024 10:44 AM EDTBody Mass Index26.47002/14/2024 10:44 AM EDT Plan of Treatment Not on file Procedures Procedure NamePriorityDate/TimeAssociated DiagnosisCommentsPR ARTHROCENTESIS ASPIR&/INJ MAJOR JT/BURSA W/O WTLrakisa72/09/2025 11:20 AM EDT Arthritis of left knee from Last 3 Months Results * [place] ARTHROCENTESIS ASPIR&/INJ MAJOR JT/BURSA W/O US (04/29/2025 11:20 AM EDT) Narrative Julien Pardo PA - 04/29/2025 11:20 AM EDT CHUCKY Pope 04/29/2025 12:50 PM L Inj/Asp: L knee on 04/29/2025 11:20 AM Indications: pain Details: 22 G needle, anterolateral approach Medications: 40 mg methylPREDNISolone acetate 40 MG/ML; 1 mL bupivacaine PF 0.5 % Outcome: tolerated well, no immediate complications UTILIZING ASEPTIC TECHNIQUE PT GIVEN INJECTION IN LEFT KNEE, NEUROVASC INTACT S/P INJ, TOLERATED WELL Procedure, treatment alternatives, risks and benefits explained, specific risks discussed. Consent was given by the patient. Authorizing ProviderResult TypeResult StatusMattraulito Pardo PAIN CLINIC/BEDSIDE ORDERABLESFinal Result from Last 3 Months Insurance Care Teams Team MemberRelationshipSpecialtyStart DateEnd Date Leelee Wright MD [address] [facility] [place] [id number] PCP - GeneralFamily Gfhtuswn29/12/24 Cornel Clark DO [address] [id number] Referring IaodbwceeRjgeqiktz60/1/24 Doris Go NP [address] [phone] Nurse CagjkrcpracgCkpcljsfw86/4/24 Avis Gomez NP [address] [phone] Nurse JhbdpnuadcroOxhonyjmc03/4/24
--- OUTSIDE RECORDS SUMMARY | 2025-07-04 09:12 | XMS_ITS | Clinical Summary ---
Author Organization [facility] Address [address], [address] [place] [address] Care Team Providers Care Envelope Fold Operator Name Role Phone Rosanna Santana MD Primary Care Provider Unavailab le Allergies Active AllergyReactionsCriticalityNoted DateCommentsAtorvastatinOther (See Comments)Low4BuspironeOther (See Comments)11/16/2021 Other reaction(s): Unknown CiprofloxacinOther (See Comments)05/15/2020Nitrofurantoin Monohyd Macro 10/17/2016Nitrofurantoin Monohyd Macro10/17/2016ProchlorperazineAnaphylaxis, Other (See Comments),RemnmelxMhjl91/09/2007SolifenacinOther (See Comments)Low 04/04/2022 BLURRY VISION, CONSTIPATION AND DIFFICULTY URINATING Medications MedicationSigDispense QuantityRefillsLast FilledStart DateEnd DateStatus levothyroxine (SYNTHROID) 100 MCG tablet 10/04/2016Active HYDROcodone-acetaminophen (NORCO) 5-325 MG per tablet 10/07/2016Active esomeprazole Magnesium (NEXIUM) 20 MG PACK Take 1 packet by mouth dailyActive aspirin 81 MG tablet Take 1 tablet by mouth dailyActive ALPRAZolam (XANAX) 0.25 MG tablet 2 tablets.07/11/2017Active nitroGLYCERIN (NITROSTAT) 0.[address] 1 tablet under the tongue every 5 minutes as needed for Chest pain up to max of 3 total doses. If no relief after 1 dose, call 911.Active losartan (COZAAR) 100 MG tablet 06/28/2020Active ondansetron (ZOFRAN-ODT) 4 MG disintegrating tablet 05/23/2020Active pramoxine HCl 1 % foam pramoxine 1 % topical foamActive carvedilol (COREG) 25 MG tablet Take 1 tablet by mouth 2 times daily06/09/2020Active hydroxychloroquine (PLAQUENIL) 200 MG tablet Take 1 tablet by mouth dailyActive predniSONE (DELTASONE) 20 MG tablet 08/17/2023ctive HYOSCYAMINE SULFATE ER PO Take 0.125 mg by mouth as neededActive trospium (SANCTURA) 20 MG tablet Take 1 tablet by mouth 2 times daily 60 tablet ctive heparin, porcine, 5000 UNIT/ML injection 08/25/2023ctive phenazopyridine (PYRIDIUM) 200 MG tablet Take 1 tablet by mouth 3 times daily as needed for Pain 21 tablet 08/31/2023ctive vibegron (GEMTESA) 75 MG TABS tablet Take 1 tablet by mouth daily 30 tablet ctive vibegron (GEMTESA) 75 MG TABS tablet Take 1 tablet by mouth daily 30 tablet ctive Active Problems Patient Care Coordination No te Formatting of this note migh t be different from the original. 11/07/2022 AUA Frequency X 3 / Nocturia X 3 ProblemNoted DateDiagnosed DateFrequency of /28/2023History of bladder stone11/07/2022Recurrent UTI03/21/2022Interstitial cystitis (chronic) without jgurbdqfn56/10/5819Izwgcsrf27/10/2017 Social History Tobacco UseTypesPacks/DayYears UsedDateSmoking Tobacco: NeverSmokeless Tobacco: Never Tobacco Cessation:Counseling Given: Not Answered Alcohol UseStandard Drinks/WeekCommentsNo0 (1 standard drink = 0.6 oz pure alcohol)CommentsUnknownSex and Gender InformationValueDate RecordedSex Assigned at BirthNot on fileLegal KdfLhtszm38/10/2013 6:46 PM ESTGender Identity Not on fileSexual OrientationNot on file Last Filed Vital Signs Vital SignReadingTime TakenCommentsBlood Fyrmptsn323/7107/06/2020 3:17 PM EST Yrbjm091607/06/2020 3:17 PM VBHAickfzszsxb93.6 ??C (97.8 ??F)07/06/2020 3:17 PM ESTRespiratory Rate--Oxygen Ojqocsadkh969%07/06/2020 3:17 PM ESTInhaled Oxygen Concentration--Ovcqnq88.7 kg (158 lb)08/24/2023 3:25 PM VWEFdfgcg671.6 cm (5' 6 )08/24/2023 3:25 PM ESTBody Mass Index25. 3:25 PM EST Plan of Treatment Health MaintenanceDue DateLast DoneCommentsDepression Hcvgyv3908/15/1957Hepatitis C ksidms2808/15/1963DTaP/Tdap/Td vaccine (1 - Tdap)1964Pneumococcal 50+ years Vaccine (1 of 1 - PCV)1995Shingles vaccine (1 of 2)1995DEXA (modify frequency per FRAX score)2000Respiratory Syncytial Virus (RSV) or age 60 yrs+ (1 - 1-dose 75+ series)2020Annual Wellness Visit (Medicare Advantage)08/21/2024Flu vaccine (#1)5COVID-19 Vaccine ( - season)2025Hepatitis A vaccineAged OutNo longer eligible based on patient's age to complete this topicHepatitis B vaccineAged OutNo longer eligible based on patient's age to complete this topicHib vaccineAged OutNo longer eligible based on patient's age to complete this topicMeningococcal (ACWY) vaccineAged OutNo longer eligible based on patient's age to complete this topicMeningococcal B vaccineAged OutNo longer eligible based on patient's age to complete this topicPolio vaccineAged OutNo longer eligible based on patient's age to complete this topic Insurance on file Care Teams Team MemberRelationshipSpecialtyStart DateEnd Date Rosanna Santana MD [address] [place] [address] PCP - [facility]10/17/16
--- OUTSIDE RECORDS SUMMARY | 2025-07-04 09:12 | XMS_ITS | Patient Health Record ---
Author Organization [facility] Address [address] [place] [address] Support Name Relationship Address Phone SIMA LEY Guarantor Unknown [phone] Reason For Referral No Information Plan Of Treatment No Information Insurance Providers Payer Name Payer Address Payer Phone Subscriber Number Group Number Insured Name Patient Relationship to Insured Coverage Start Date Coverage End Date Medicare [employer] [address] [place] [address] [id number] Shawanda LEY - patient is the insuredOhio Dept of MedicaidP [address] [place] [id number], WANDASelf - patient is the insured
--- OUTSIDE RECORDS SUMMARY | 2025-07-04 09:12 | XMS_ITS | Clinical Summary ---
Author Organization [facility] Address [address] [place] [address] Care Team Providers Care Retail Service Lead Merchandiser Name Role Phone Joselyn Bill MD Primary Care Provider [phone] Allergies Active AllergyReactionsCriticalityNoted DateCommentsProchlorperazine Edisylate Cweimwsd43/28/2009 Medications MedicationSigDispense QuantityRefillsLast FilledStart DateEnd DateStatus lisinopril (ZESTRIL) 20 MG PO TABS take 1 Tab by mouth Daily.Active levothyroxine (SYNTHROID) 125 MCG PO TABS take 1 Tab by mouth Daily.Active atenolol 25 MG PO TABS take 1 Tab by mouth Daily.Active doxepin 10 MG PO CAPS take 1 Cap by mouth Daily.Active Propoxyphene N-APAP (DARVOCET-N 50 PO) take 1 Tab by mouth At bedtime.Active chlordiazepoxide (LIBRIUM) 5 MG PO CAPS take 1 Cap by mouth At bedtime as needed for Anxiety.Active trimethoprim 100 MG PO TABS take 0.5 Tabs by mouth Daily.Active phenazopyridine 100 MG PO TABS take 1 Tab by mouth Daily. PRNActive Nitrofurantoin Macrocrystal (MACRODANTIN) 100 MG PO CAPS take 1 Tab by mouth 2 times daily.Active Family History Medical HistoryRelationNameCommentsDiabetesBrother 1Heart Disease - OtherBrother 1HypertensionBrother 1DiabetesBrother 2Heart Disease - OtherBrother 2 HypertensionBrother 2Heart Disease - OtherBrother 3HypertensionBrother 3Heart Disease - OtherBrother 4HypertensionBrother 4Heart Disease - OtherFather HypertensionFatherDiabetesMotherHypertensionMotherDiabetesSister 1Heart Disease - OtherSister 1HypertensionSister 1DiabetesSister 2Heart Disease - OtherSister 2 HypertensionSister 2RelationNameStatusCommentsBrother 1DeceasedBrother 2Deceased Brother 3DeceasedBrother 4DeceasedFatherDeceasedMotherDeceasedSister 1Alive Sister 2Alive Social History Tobacco UseTypesPacks/DayYears UsedDateSmoking Tobacco: Never Assessed CommentsUnknownSex and Gender InformationValueDate RecordedSex Assigned at Not on fileLegal DctZjadez40/03/2013 5:42 PM ESTGender IdentityNot on fileSexual OrientationNot on file Plan of Treatment Health MaintenanceDue DateLast DoneCommentsDEXA SCAN WPOBLOLKLY1945 HEPATITIS C VIRUS NGPKRTARO34/26/1564YOWYXWK1945TDAP (ADULT)1964 CERVICAL CANCER SCREENING DOETEFACAY43/26/1966MAMMOGRAM SCREENING DISCUSSION 1985COLORECTAL CANCER SCREENING GPJWFFAFRV56/26/1990PNEUMOCOCCAL VACCINE SERIES (1 of 1 - PCV)1995ZOSTER (SHINGLES) VACCINE (1 of 2)1995RSV VACCINE (1 - 1-dose 75+ series)2020COVID-19 VACCINE (1 - season) 2025INFLUENZA VACCINE (#1)2025HEP B VACCINEAged OutNo longer eligible based on patient's age to complete this topic Care Teams Team MemberRelationshipSpecialtyStart DateEnd Date Joselyn Bill MD [address] [place] [address] PCP - General09/16/09
--- OUTSIDE RECORDS SUMMARY | 2025-07-04 09:12 | XMS_ITS | Patient Health Record ---
Author Organization [facility] [place] Address [address] [place] [address] Care Team Providers Care Coagulating Bath Mixer Name Role Phone Shaikh Leung MD Primary Care Provider Unavaila ble Allergies Allergen (clinical drug ingredient) Drug/Non Drug Allergy documented on EMR Reaction Allergy Type Onset Date Status Compazinethroat swellingDrug AllergyActive Reason For Referral No Information Medications Medication SIG (Take, Route, Frequency, Duration) Notes Start Date End Date Status Probiotic Acidophilus - Orally GyhvjoTmczurf-Gaguvl-Kd Chondr-MSM [phone] MG1 tablet Orally DailyActive traZODone HCl 50 MG1 tablet at bedtime as needed Orally Once a dayActiveLosartan Potassium 50 MG1 tablet Orally BIDActiveNadolol 20 MG1/2 tab Orally BIDActive ALPRAZolam 0.25 MG1 tablet Orally dailyActiveNexIUM 24HR 20 MG1 capsule Orally Once a dayActiveAspir-81 81 MG1 tablet Orally Once a dayActiveNitroglycerin 0.4 MGSublingualActiveHYDROcodone-Acetaminophen 5-325 MG1 tablet as needed Orally BIDActiveamLODIPine Besylate 2.5 MG1 tablet Orally Once a dayNot-Taking Isosorbide Mononitrate ER 60 MG1 tablet in the morning Orally Once a day; Duration: 30 day(s)ActiveBentyl 20 MG1 tablet Orally Four times a dayNot-Taking Keflex 500 MG1 capsule Orally every 12 hrs; Duration: 5 days05/07/2019Active methylPREDNISolone 4 MG1 tablet with food or milk in the morning Orally daily Not-TakingLevothyroxine Sodium 100 MCG1 tablet on an empty stomach in the morning Orally Once a dayActiveOndansetron 4 MG1 tablet on the tongue and allow to dissolve Orally every 6 hrsNot-TakingcloNIDine HCl 0.1 MG0.5 tablet at bedtime Orally Twice a dayActivePhenazopyridine HCl 200 MG1 tablet after meals Orally Three times a dayActiveDicyclomine HCl 20 MG1 tablet Orally Four times a day; Duration: 30 day(s)prnActive Social History Tobacco Use: Social History Observation Description Date Details (start date - stop date) Never Smoker NA - NA Tobacco Use/Smoking Question Answer Notes Patient is a nonsmoker Alcohol Screen (Audit-C) Question Answer Notes Did you have a drink containing alcohol in the p ast year? No Atpzpp9WepsdekguewhfoKpxiwebiKlxloci Notes: nondrinker nondrinker nondrinker nondrinker nondrinker nondrinker Problems Problem Type SNOMED Code ICD Code Onset Dates Problem Status W/U Status Risk Notes Problem Essential hypertension (55326268 ) Essential (primary) hypertension (I10) ActiveconfirmedProblemHypothyroidism (20180238)Hypothyroidism, unspecified (E03.9)ActiveconfirmedProblemGeneralized anxiety disorder (74708879)Generalized anxiety disorder (F41.1)ActiveconfirmedProblemPrimary insomnia (1407034)Primary insomnia (F51.01)ActiveconfirmedProblemChronic pain (42658543)Other chronic pain (G89.29)ActiveconfirmedProblemConstipation (07703731)Constipation, unspecified (K59.00)ActiveconfirmedProblemFibromyalgia (377633082)Fibromyalgia (M79.7)Active confirmedProblemChronic kidney disease stage 1 (994406937)CKD (chronic kidney disease) stage 1, GFR 90 ml/min or greater (N18.1)ActiveconfirmedProblemPrimary osteoarthritis (478418443)Primary osteoarthritis involving multiple joints (M15.0)ActiveconfirmedProblemSystemic lupus erythematosus (89040124)Chronic lupus erythematosus (M32.9)Activeconfirmed Plan Of Treatment Pending Test Test Name Order Date DEXA Axial Skeleton (hips, pelvis, spine )* 03/21/2019 C3 and C4 03/05/2019 Urinalysis Microscopic 03/05/2019 IMMUNOFIXATION + PROTEIN ELECTROPHORESIS , SERUM 03/05/2019 Microalbumin - Albumin/Creatinine Ratio Urine 03/05/2019 KAILEY w/Reflex 03/05/2019 Insurance Providers Payer Name Payer Address Payer Phone Subscriber Number Group Number Insured Name Patient Relationship to Insured Coverage Start Date Coverage End Date [employer] DUAL ADV PRIMARY MEDICARE [address] [place] [id number] [facility] Tea Rahman Self - patient is the insured MEDICAID [place] [address] OFFICE OF [place], [place] [id number] [phone], WandaSelf - patient is the insured Medications Administered Medication Instructions Date of Administration Dosage Notes Depo-Medrol, 40 mg/mL mLDepo-Medrol, 40 mg/mL mLDepo-Medrol, 40 mg/mL01/17/2019 160 mgKenalog, 40 mg/mL03/21/2019120 mg Medical (General) History Medical History History ICD Code coronary artery disease hypertensionhyperlipidemiahx of goiterinterstitial cystitislupushx of depression cataractshx of anginahx of stomach/duodenal ulcerhx of gallstoneshx of diverticulitisosteoporosis hipSurgical History Surgery Date(Month/Year) colonoscopy 2011 radioactive iodine of thyroid, no thyroi d 1970 cataracts removed 2012 hysterectomy 1989 cholecystectomy age 19 1963 appendectomy age 19 1963
--- OUTSIDE RECORDS SUMMARY | 2025-07-04 09:13 | XMS_ITS | Patient Health Record ---
Author Organization [facility] Address [address] [place] [address] Care Team Providers Care Live In Housekeeper Name Role Phone Dr. George Campos Primary Care Provider [phone] Allergies Allergen (clinical drug ingredient) Drug/Non Drug Allergy documented on EMR Reaction Allergy Type Onset Date Status CiprofloxacinUnknownDrug AllergyActiveCompazineUnknownDrug AllergyActive Reason For Referral No Information Medications Medication SIG (Take, Route, Frequency, Duration) Notes Start Date End Date Status Losartan Potassium 100 MG Tablet 1 tablet Orally Once a day ActiveclonazePAM 0.5 MG Tablet1 tablet Orally twice a day; Duration: 7 daysF41.1 HOLD ALPRAZOLAM WHILE TRIALING THIS WJXYZNANDM97/09/2024ctiveCarvedilol 12.5 MG Tablet1 tablet with food Orally Twice a dayActiveLevothyroxine Sodium 100 MCG Tablet1 tablet in the morning on an empty stomach Orally Once a dayActive Hydroxychloroquine Sulfate 200 MG Tabletas directed OrallyActiveNitrolingual 0.4 MG/SPRAY Solutionas directed TranslingualActiveHYDROcodone-Acetaminophen 5-325 MG Tablet 1 tablet as needed Orally every 6 hrs As needed pt. reports she takes 1/2 tab a dayActiveXanax 0.5 MG Tablet1 tablet Orally Twice a day; Duration: 90 daysNew prescriber for this uixvdzixdj90/07/2024ctive NexIUM 20 MG Capsule Delayed Release1 capsule Orally Once a dayActiveBaby AspirinActivepredniSONE 5 MG Tablet 2 tablets Orally Once a day for a week May take 1 tablet everyday as needed ActiveHyoscyamine Sulfate 0.125 MG Tablet Disintegrating1 tablet on the tongue and allow to dissolve as needed Orally every 4 hrsUnknown Problems Problem Type SNOMED Code ICD Code Onset Dates Problem Status W/U Status Risk Notes Problem Generalized anxiety disorder (84505858) JUANCARLOS (generalized anxiety disorder) (F41.1) Activeconfirmed Plan Of Treatment No Information Insurance Providers Payer Name Payer Address Payer Phone Subscriber Number Group Number Insured Name Patient Relationship to Insured Coverage Start Date Coverage End Date [employer] MED[employer] DUAL-ELIGB LE [address] [place] [address] [id number] [id number] SIMA LEY Self - patient is the insured 3 MEDICAID SEC [address] [place] [phone] [id number], WANDASelf - patient is the [id number] 2023 Medical (General) History Medical History History ICD Code fibromyalgia chronic UTIdiverticulitischronic fatiguehiatal hernia esopogealhypertenstion sciaticosteoarthritisSurgical History Surgery Date(Month/Year) open heart surgery- double bypass 2019 sciatic epidural left knee injections (every 3 months)bladder stone removalgallbladder removal 1965THYROID GLAND [id number], [id number] History Reason Date(Month/Year) see sx
--- OUTSIDE RECORDS SUMMARY | 2025-07-04 09:13 | XMS_ITS | Clinical Summary ---
Author Organization [employer] [facility] tem Address [id number] [address] [place] [address] Care Team Providers Care Second Hand Name Role Phone Leelee Wright MD Primary Care Provider [phone] Allergies Active AllergyReactionsCriticalityNoted NpsiNejbonpxUxqlbnaad82/29/2022 Other reaction(s): Unknown Ciprofloxacin HclOther (See Comments)Plezbg8301/03/2017 Prolong use causes tendon tightness NcwvfkttcvcqxuapVfzvpdvytfaSrcs76/16/7062XwgoxuqyOdxkwvtRxc77/28/2024 Nitrofurantoin Gpubuivawzgg86/16/2017SolifenacinOther (See Comments)04/04/2022 BLURRY VISION, CONSTIPATION AND DIFFICULTY URINATING Medications MedicationSigDispense QuantityRefillsLast FilledStart DateEnd DateStatus aspirin 81 mg Take 1 tablet (81 mg total) by mouth in the morning.Active levothyroxine (SYNTHROID, LEVOTHROID) 100 MCG tablet Take 1 tablet (100 mcg total) by mouth in the morning.10/04/2016Active hydrOXYchloroQUINE (PLAQUENIL) 200 mg tablet Take 1 tablet (200 mg total) by mouth in the morning.04/20/2021ctive losartan (COZAAR) 100 mg tablet Indications:Essential hypertension, benignTake 1 tablet (100 mg total) by mouth in the morning. 90 tablet 3Active cyanocobalamin 500 MCG tablet Take 1 tablet (500 mcg total) by mouth in the morning.Active docusate sodium (COLACE) 100 mg capsule Take 1 capsule (100 mg total) by mouth in the morning and 1 capsule (100 mg total) before bedtime.Active magnesium aspart,citrate,oxide (TRIPLE MAGNESIUM COMPLEX) 400 mg magnesium capsule Take 400 mg by mouth in the morning.Active multivit-minerals/folic acid (ONE-A-DAY WOMEN'S 50 PLUS ORAL) Take 1 tablet by mouth in the morning.Active famotidine (PEPCID) 20 mg tablet Take 1 tablet (20 mg total) by mouth in the morning.Active LORazepam (ATIVAN) 0.5 mg tablet Take 1 tablet (0.5 mg total) by mouth every 6 (six) hours as needed for anxiety. Active melatonin (CIRCADIN) tablet Take 1 tablet (3 mg total) by mouth daily as needed.Active rOPINIRole (REQUIP) 0.25 mg tablet Take 1 tablet (0.25 mg total) by mouth in the morning.Active escitalopram (LEXAPRO) 20 mg tablet Take 1 tablet (20 mg total) by mouth in the morning.Active cholecalciferol, vitamin D3, 5,000 units tablet Take 1 tablet (5,000 Units total) by mouth in the morning.Active ferrous sulfate 325 (65 FE) mg tablet Take 1 tablet (325 mg total) by mouth in the morning and 1 tablet (325 mg total) in the evening. Take with meals.Discontinued predniSONE (DELTASONE) 5 mg tablet Take 1 tablet (5 mg total) by mouth in the morning. Discontinued hydrocortisone (ANUSOL-HC) 2.5 % rectal cream Indications:Internal hemorrhoidsInsert 1 Application into the rectum in the morning and 1 Application before bedtime. 30 g Discontinued Active Problems ProblemNoted DateDiagnosed DateAcute on chronic systolic congestive heart ilipbvc0602/19/2024Iron deficiency ghvqxh8602/19/2024djustment disorder with anxious mood02/16/2024ge-related osteoporosis with current pathological scqmwojq63/28/1382Xpvyau80/28/5281Stimpsr61/28/2024Atherosclerosis of aorta 02/16/2024ladder stone02/16/2024ardiovascular stress test asaahwzc48/28/2024 Hgwgxsmkpfczf57/28/2024Impingement syndrome of shoulder ikxxrx7802/16/2024Major depressive disorder with single episode, in full njabkzpox57/28/2024omplex posttraumatic stress /28/2024ost-nasal drip02/16/2024losed left hip mycmlanb70/27/2024External exhbduotxp42/11/2024 Overview (02/16/2024): Last Assessment & Plan: External hemorrhoids, associated with rectal pressure/pain/discomfort. No bleeding. Did not use hydrocortisone suppository - agreeable to use it now. No new recommendation/specific plan of care by Surgery. Conservative measures only. Carpal tunnel syndrome on both sides01/07/2024Leg weakness, nmyscdjey21/19/2024 Myalgia, other site01/07/20247783Shojosbma15/19/5097Bqifsiujzgqj84/19/2024Lumbar iuttwxbdkmmjo49/19/2024rimary gznlglsxyaejqn50/07/2024 Overview (01/31/2024): She had right-sided hydronephrosis on CT scan December 21, 2023 associated with some stones within her bladder.. Plan for follow-up ultrasound to confirm this has resolved 01/31/24: Ultrasound shows resolution of the hydronephrosis. No stones Irritable bowel syndrome with cwlgpdyppzhc23/02/2024 Overview (02/16/2024): Last Assessment & Plan: Disabling symptoms. She routinely struggles with constipation [...] related to new medications. Refer to GI. Urge ctkembgfndjd33/23/2024 Overview (04/16/2025): Previously controlled using Gemtesa now with recurrent symptoms 12/10/2024: Plan for re trial Gemtesa. Thirty day prescription given 04/16/25: No improvement. See above plan Interstitial vqromntb45/23/2024 Overview (06/24/2025): Currently controlled with [facility] instillations [...] can be made to the xanax first. Assessment & Plan (04/16/2025 12:37 PM EDT): She will call if she feels she needs another instillation. If she is doing well, we will see her back in a few moths for an update. Assessment & Plan (01/31/2024 1:58 PM EDT): She will be seeing General surgery soon to discuss her hemorrhoids. She once a six-month follow-up but will call sooner if she feels she needs an instillation Acute cystitis with bvbtyrjqn33/19/2024 Overview (02/16/2024): Last Assessment & Plan: Patient reported dysuria, urgency and polyuria x 1 week In office UA c/w UTI. Will order urine cultures due to hx recurrent UTI. Treat with PO Cefdinir. Herpes zoster without ivrdrdbyjdxn92/19/2024 Overview (02/16/2024): Last Assessment & Plan: Patient here for rash - appearance c/w Shingles. Rash/pain is improving. Conservative measures/care. No need for anti viral as over 7 days since rash first appeared. Will discussed Shingles vaccine next appointment. Tqmwlvxgzsrj83/16/2024Gastroesophageal reflux mqtdcbe1409/05/2023 Overview (02/16/2024): Last Assessment & Plan: On nexium. C/w same Rwectuilvncqui44/16/3855Wgccrynrdodnkn91/16/2024 Overview (02/16/2024): Last Assessment & Plan: TSH at goal 09/13,. C/w tirosint. Check TSH. Vitamin D oevxlgblow09/16/2024 Overview (02/16/2024): Last Assessment & Plan: Not on any Vit D supplements currently. Check levels. Generalized abdominal pain03/20/2023Frequency of ybsgicets96/28/2023Recurrent UTI03/21/2022 Overview (02/16/2024): Last Assessment & Plan: Complicated UTI - had ED visit earlier [...] there is change in her clinical status. Unstable aushlq9305/05/2020NSTEMI (non-ST elevated myocardial infarction) 05/05/2020 Overview (05/06/2020): Added automatically from request for surgery [id number] UTI due to Klebsiella rdlresb5802/04/2020Coronary artery disease involving [place] coronary artery of [place] heart without angina /21/2019Resistant alrstfqbmvkx69/21/6427Izvukhfm06/10/2017Lupus Resolved Problems ProblemNoted DateDiagnosed DateResolved DateParoxysmal atrial fibrillation 1Long term (current) use of xqgmtjygwupfhu64/22/2020 1Angina ltdsuzzo74 Encounters DateTypeDepartmentCare JazuTlgfqibggnw99/04/2025 3:45 PM ESTOffice Visit [facility] [address] [place] [address] [place] [phone] Twin العلي MD Urge incontinence (Primary Dx); Interstitial ujhzsedf34/22/2025 1:30 PM EDTSupport Visit [facility] [address] [place] [address] [place] [phone] Tico Kramer MD Recurrent UTI (Primary Dx); Acute cystitis with hematuria; Interstitial hkxlumzd93/10/2025 1:30 PM EDTSupport Visit [facility] [address] [place] [address] [place] [phone] Fabiola Man PA Urge incontinence (Primary Dx); Interstitial iaptccnf21/08/2025Telephone [facility] [address] [place] [address] Fabiola Man PA 04/23/2025 10:55 AM EDT - 04/23/2025 11:59 PM EDTHospital Encounter [facility] [address] [place] [address] Interstitial cystitis Discharge Disposition: Home04/23/20255480Pldgmf53/28/2025Results Follow-Up [facility] [address] [place] [phone] Fabiola Man PA Urinalysis, Urine Culture, Ultrasound retroperitoneal hmqepuku68/27/2025 11:45 AM EDTOffice Visit [facility] [address] [place] [phone] Fabiola Man PA Stress (Primary Dx); Interstitial cystitis; Urge incontinencefrom Last 3 Months Immunizations No known immunizations Family History Medical HistoryRelationNameCommentsHeart attackBrother 1DiabetesBrother 2Heart diseaseBrother 2Heart attackBrother 3Heart diseaseBrother 3DiabetesBrother 4 Heart diseaseBrother 4Heart attackFatherDiabetesMotherHeart attackMotherCancer Sister 1Heart attackSister 1Deep vein thrombosisSister 2Heart diseaseSister 2 RelationNameStatusCommentsBrother 1Deceased (Age 46)Brother 2Deceased (Age 65) Brother 3Deceased (Age 50)Brother 4Deceased (Age 42)FatherDeceased (Age 65) MotherDeceased (Age 67)Sister 1DeceasedSister 2Deceased Social History Tobacco UseTypesPacks/DayYears UsedDateSmoking Tobacco: NeverSmokeless Tobacco: Never Tobacco Cessation:Counseling Given: Not Answered Alcohol UseStandard Drinks/WeekCommentsNo0 (1 standard drink = 0.6 oz pure alcohol)[facility] UtilitiesAnswerDate RecordedIn the past 12 months has the [employer], [employer], or water [employer] threatened to shut off services in your home?No 02/16/2024Social Connection and Isolation PanelAnswerDate RecordedIn a typical week, how many times do you talk on the phone with family, friends, or neighbors?More than three times a week05/05/2020How often do you get together with friends or relatives?More than three times a week05/05/2020How often do you attend yazdanism or pentecostal services?Never05/05/2020Do you belong to any clubs or organizations such as yazdanism groups, unions, fraternal or athletic groups, or school groups?No05/05/2020How often do you attend meetings of the clubs or organizations you belong to?Never05/05/2020Are you , , , , never , or living with a partner?Tegubti0805/05/2020PHQ-2Answer Date RecordedTotal Mboun324[facility] [place] of Occupational Health - Occupational Stress QuestionnaireAnswerDate [...] of a household? 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 work [...] True06/24/2025Purpose - LifeAnswerDate RecordedPurpose and direction in pkutGxjdvzw04/21/2021CommentsNoSex and Gender InformationValueDate RecordedSex Assigned at BirthNot on fileLegal Sex Nibhhd1103/26/2015 11:21 AM EDTGender IdentityNot on fileSexual OrientationNot on file Last Filed Vital Signs Vital SignReadingTime TakenCommentsBlood Gqlnjljd207/9106/24/2025 4:07 PM EST Tcxmh45522/04/2025 4:07 PM RKNBxwpmecvuzk31.6 ??C (97.8 ??F)02/19/2024 11:42 AM EDTRespiratory Roxc513102/19/2024 11:42 AM EDTOxygen Cwksfkqviz77%02/19/2024 11:42 AM EDTInhaled Oxygen Concentration--Cyancq21.4 kg (175 lb)06/24/2025 4:07 PM EST Auyymn902.6 cm (5' 6 )06/24/2025 4:07 PM ESTBody Mass Index28.25108/24/2024 4:07 PM EST Plan of Treatment DateTypeDepartmentCare Team (Latest Contact Info)Oapesfoyulm18/28/2026 1:45 PM EDTOffice Visit [facility] [address] [place] [phone] Twin العلي MD [address] [place] [address] 07/07/2026 1:15 PM ESTOffice Visit [facility] [address] [place] [address] [place] [address] Twin العلي MD [address] [place] [address] Health MaintenanceDue DateLast DoneCommentsDepression Urhohgztz00/26/1957 DTaP,Tdap and Td Vaccines (1 - Tdap)1964Zoster (Shingles) Vaccine (1 of 2) 1995Fall Risk Dgmwfuyee45/26/2010RSV ( or age 60+ yrs) (1 - 1-dose 75+ series)2020Influenza Atrhzks4204/21/2025Tobacco Tawqdyxwv24/04/2026 06/24/2025 Goals GoalPatient Goal TypeAssociated ProblemsRecent ProgressPatient-Stated?Author [facility] Kay Lai LSW Note: Evaluation of progress towards goal: await surgery Medical Devices ImplantedTypeAreaManufacturerDevice IdentifierShelf Expiration DateModel / Serial / LotScrew Bn 80mm 16mm 6.5mm 7.9mm 2.[address] [facility] [place] Sna - [id number] Implanted:Qty: 2 on 02/16/2024 [facility] HipDEPUY SYNTHES SALES.411 / NA / NAScrew Bn 85mm 16mm 6.5mm 7.9mm 2[address] [facility] - Sna - [id number] Implanted:Qty: 1 on 02/16/2024 [facility] HipDEPU[employer] SYNTHES SALES.412 / NA / NAScrew Bn 90mm 16mm 6.5mm 7.9mm 2[address] [facility] [place]na - [id number] Implanted:Qty: 1 on 02/16/2024 [facility] Hip[employer] SYNTH[employer] SALES.413 / NA / NAWasher 13mm Orth Ss 6.5/7/7.3mm Cnn Scr Ns Rpl Specials [id number] - Sna - [id number] Implanted:Qty: 1 on 02/16/20[facility] [employer] SALES.99 / NA / NA Procedures Procedure NamePriorityDate/TimeAssociated DiagnosisCommentsUS RETROPERITONEAL MEPRWVPAFnqoqlw30/03/2025 11:29 AM EDT Interstitial cystitis VLDGGZOKWSJkswyag79/27/2025 12:48 PM EDT Interstitial cystitis Urge incontinence URINE VYRCVXRTukepmm19/27/2025 12:48 PM EDT Interstitial cystitis Urge incontinence from Last 3 Months Results * Ultrasound retroperitoneal complete (04/23/2025 11:29 AM EDT)Anatomical Region LateralityModalityBodyUltrasoundSpecimen (Source)Anatomical Location / LateralityCollection Method / VolumeCollection TimeReceived Time04/26/2025 10:34 AM EDT Narrative 04/26/2025 10:36 AM EDT HISTORY: A 79-year-old female with a history of the kidney stones, urinary frequency and interstitial cystitis. TECHNIQUE: ??Multiple real-time images of the both kidneys and the urinary bladder are obtained. Color Doppler study is performed. COMPARISON: ??Comparison is made with the renal ultrasound examination of 01/16/[address] scan of the abdomen and pelvis of 12/11/2022. FINDINGS: ??Both kidneys are normal in position and configuration. ??Right kidney measures 10.3 x 4.1 x 5.3 Cms. ??Right renal cortical thickness measures 0.63 Cms . ??Left kidney measures 8.6 x 4.4 x 3.7 ??Cms. ??Left renal cortical thickness measures 0.76 Cms. There is no evidence of hydronephrosis in the either kidney. Renal cortical echoes are within normal limits. ??No evidence of cystic or solid renal mass. Prevoid urinary bladder volume is 66 mL. ??Bilateral ureteric jets are visualized. ??No intraluminal abnormality seen. IMPRESSION: * ?? No evidence of echogenic calculi or hydronephrosis in the either kidney. * ??No evidence of cystic or solid renal mass. * ??Unremarkable urinary bladder. Finalized by Rigoberto Cadet MD on 04/26/2025 10:36 AM Procedure Note Rigoberto Cadet MD - 04/26/2025 HISTORY: A 79-year-old female with a history of the kidney stones, urinary frequency and interstitial cystitis. TECHNIQUE: Multiple real-time images of the both kidneys and the urinarybladder are obtained. Color Doppler study is performed. COMPARISON: Comparison is made with the renal ultrasound examination of01/16/[address] scan of the abdomen and pelvis of 12/11/2022. FINDINGS: Both kidneys are normal in position and configuration. Rightkidney measures 10.3 x 4.1 x 5.3 Cms. Right renal cortical thicknessmeasures 0.63 Cms . Left kidney measures 8.6 x 4.4 x 3.7 Cms. Leftrenal cortical thickness measures 0.76 Cms. There is no evidence of hydronephrosis in the either kidney. Renal cortical echoes are within normal limits. No evidence of cystic orsolid renal mass. Prevoid urinary bladder volume is 66 mL. Bilateral ureteric jets arevisualized. No intraluminal abnormality seen. IMPRESSION: * No evidence of echogenic calculi or hydronephrosis in the eitherkidney. * No evidence of cystic or solid renal mass. * Unremarkable urinary bladder. Finalized by Rigoberto Cadet MD on 04/26/2025 10:36 AM Authorizing ProviderResult TypeResult StatusMichelsmita Man [facility] ORDERABLESFinal Result * (ABNORMAL) Urinalysis (04/16/2025 12:48 PM EDT)ComponentValueRef RangeTest MethodAnalysis TimePerformed AtPathologist SignatureCOLOROrange(A)Yellow 04/16/2025 10:21 PM [facility] LABORATORYTURBIDITYCloudy(A) Clear04/16/2025 10:21 PM [facility] LABORATORYSPECIFIC GRAVITY1.0291.003 - 1.5661504/16/2025 10:21 PM [facility] RCLKYMFFQPAQKKNUQZmkcurraHpxkbgfm99/27/2025 10:21 PM [facility] LABORATORYPH,URINE5.55.0 - 8.508 10:21 PM [facility] LABORATORYLEUKOCYTE OGABGXBTUvszzvsgXsciodyy97/27/2025 10:21 PM EDT [facility] QHALBLRBYTHHUIHPL62 mg/dL(A)Hpquegvg23/27/2025 10:21 PM [facility] LABORATORYKETONES (URINE)NegativeNegative 04/16/2025 10:21 PM [facility] LABORATORYUROBILINOGEN<1.1 eu/dL<1.1 eu/dL04/16/2025 10:21 PM [facility] BILIRUBIN (URINE)ZpgxkotuYnsurumj36/27/2025 10:21 PM [facility] LABORATORYBLOOD/YXVUgxbhaocIamlrscx17/27/2025 10:21 PM [facility] LABORATORYCA OXALATE CRYSTALSPresent(A)None04/16/2025 10:21 PM [facility] LABORATORYMUCOUSPresent(A)None04/16/2025 10:21 PM [facility] LABORATORYR.B.CELLS10 - 5004/16/2025 10:21 PM [facility] LABORATORYSQUAMOUS TZDVRTNFPF29 - 5004/16/2025 10:21 PM [facility] LABORATORYW.B.CELLS00 - 5004/16/2025 10:21 PM [facility] LABORATORYGLUCOSE (URINE)NegativeNegative 04/16/2025 10:21 PM [facility] LABORATORYSpecimen (Source) Anatomical Location / LateralityCollection Method / VolumeCollection Time Received TimeUrine (Urine, Straight Catheter)04/16/2025 12:48 PM EDT04/16/2025 12:48 PM EDT Narrative Authorizing ProviderResult TypeResult StatusMichelsmita [facility] ORDERABLES Final ResultPerforming OrganizationAddressCity/State/ZIP CodePhone Number [facility] [address] [place] [address], * Urine Culture (04/16/2025 12:48 PM EDT)ComponentValueRef RangeTest Method Analysis TimePerformed AtPathologist SignatureCULTURE RESULTSNO GROWTH AT <1000 CFU/mL04/17/2025 6:24 PM [facility] LABORATORYSpecimen (Source)Anatomical Location / LateralityCollection Method / VolumeCollection TimeReceived TimeUrine (Urine, Indwelling Catheter)04/16/2025 12:48 PM EDT 04/16/2025 12:48 PM EDT Narrative Authorizing ProviderResult TypeResult StatusMichelsmita Man [facility] - GENERAL ORDERABLESFinal ResultPerforming OrganizationAddressCity/State/ZIP Code Phone Number [facility] [address] [place] [address], from Last 3 Months Insurance Advance Directives * Full Code (Latest Code Status on File) Date ActivatedDate InactivatedComments02/16/2024 2:21 AM02/19/2024 5:37 PM * Full Code Date ActivatedDate InactivatedComments05/06/2020 10:11 AM05/13/2020 7:26 PM Care Teams Team MemberRelationshipSpecialtyStart DateEnd Date Leelee Wright MD [address] [facility] [place] [phone] PCP - GeneralFamily Jhgfwwqs71/27/24 PILI GONZALEZ [address] [place] [address] Urology03/19/20
[2025-07-04 09:15] LABS: Mean Corpuscular Volume 105.7 fL (81.0-99.0)
--- NOTE | 2025-07-04 09:20 | CT_ITS ---
The [address] [address] Patient Name: SIMA LEY MRN: [id number] date: 1945 Sex: F Assigned Patient Location: ER Current Patient Location: ER Accession/Order Number: [id number] Exam Date: 07/04/2025 09:25 Report Date: 07/04/2025 09:55 At the request of: MACKENZIE HASTINGS MD Procedure: CT abdomen pelvis wo con CT ABDOMEN AND PELVIS WITHOUT CONTRAST COMPARISON: 12/21/2023 CLINICAL DATA: Diarrhea and hypertension. Flank pain and history of kidney stones. Spiral axial unenhanced images were obtained through the abdomen and pelvis. This CT exam was performed using one or more following dose reduction techniques: Automated exposure control, adjustment of the mA and/or kV according to patient size, or use of iterative reconstruction technique. Limited cuts through the lung bases show trace amount of pleural fluid on the right. There is mild prominence of bronchovascular markings and minimal atelectasis. Assessment of the intra-abdominal organs is slightly limited by the absence of contrast. The gallbladder is surgically absent. A subtle hypodensity is seen at the posterior right hepatic lobe, also present on the prior. The spleen, pancreas and adrenal glands show no acute findings. There are no renal calculi or hydronephrosis. There is atherosclerotic plaque at the aorta, iliac and some of the visceral arteries. No enlarged lymph nodes or ascites are seen. Small bowel loops are normal caliber. There is minimal colonic stool on the right. The left colon is decompressed and there are colonic diverticula. Mild degenerative changes are noted at the spine. There is compression deformity at superior endplate of T12 with minor retropulsion of the posterior superior endplate. This is a new finding since the previous study and a lumbar spine CT from March 2024. Images through the pelvis are slightly limited by streak artifact from patient's left hip prosthesis. The small bowel loops are normal caliber. The appendix is not definitely seen. There is a small amount of distal colonic stool. There are some sigmoid diverticula. No active inflammation is seen. The uterus is surgically absent. No obvious bladder abnormalities within limits of the artifact. No ascites is seen. There is degenerative change at the SI joints and right hip. Mild subchondral sclerosis again seen at the weightbearing aspect of the right femoral head. CT/CT abdomen pelvis wo con IMPRESSION: MINOR BIBASILAR PARENCHYMAL CHANGES AND TINY RIGHT EFFUSION. SIMILAR RIGHT HEPATIC HYPODENSITY. NO OBSTRUCTIVE UROPATHY OR STONE DISEASE. MILD DIVERTICULOSIS. T12 COMPRESSION DEFORMITY, NOT PRESENT PREVIOUSLY. NO OTHER ACUTE FINDINGS. Impression dictated by: Christina Laurent M.D. 07/04/2025 9:55 AM Dictation Location: [place] [address] Electronically authenticated by: [id number] Date: 07/04/2025 09:55
--- NOTE | 2025-07-04 09:21 | ED.GENADUL1 ---
HPI HPI - General Adult General Chief complaint: Nausea/Vomiting/Diarrhea Stated complaint: diarrhea Time Seen by Provider: 07/04/25 08:34 Source: patient Mode of arrival: walk-in Limitations: no limitations History of Present Illness HPI narrative: The patient is a 79-year-old female who apparently had multiple issues including anxiety hypertension and recently over the last 24 hours she started having some diarrhea with abdominal pain. Patient have a history of kidney stone before and she is complaining of right sided pain associate with no blood in urine or any stool and the patient mentioned that just frequency of diarrhea. No nausea no vomiting no dizziness Patient admits that she is very anxious as she has multiple issues going on with her as well as her granddaughter Related Data Home Medications ?Medication ?Instructions ?Recorded ?Confirmed alprazolam 0.5 mg tablet 0.25 mg PO DAILY 12/03/23 07/04/25 hydroxychloroquine 200 mg tablet 200 mg PO DAILY 12/03/23 07/04/25 levothyroxine 100 mcg tablet 100 mcg PO DAILY 12/03/23 07/04/25 aspirin 81 mg capsule 81 mg PO DAILY 02/23/24 07/04/25 losartan 100 mg tablet 100 mg PO DAILY 04/03/24 07/04/25 acetaminophen 325 mg tablet (Pain 650 mg PO .2 times per day PRN 07/04/25 07/04/25 Relief (acetaminophen)) fever or pain cyanocobalamin (vitamin B-12) 500 500 mcg PO DAILY 07/04/25 07/04/25 mcg tablet (B-12 DOTS) famotidine 20 mg tablet (Acid 20 mg PO DAILY 07/04/25 07/04/25 Controller) magnesium 200 mg tablet 400 mg PO DAILY 07/04/25 07/04/25 melatonin 3 mg capsule 6 mg PO DAILY 07/04/25 07/04/25 prednisone 5 mg tablet 15 mg PO DAILY PRN lupus 07/04/25 07/04/25 ropinirole 0.25 mg tablet 0.25 mg PO DAILY 07/04/25 07/04/25 sertraline 25 mg tablet 25 mg PO DAILY 07/04/25 07/04/25 sertraline 50 mg tablet 50 mg PO DAILY 07/04/25 07/04/25 vibegron 75 mg tablet (Gemtesa) 75 mg PO DAILY 07/04/25 07/04/25 Previous Rx's ?Medication ?Instructions ?Recorded dicyclomine 20 mg tablet 20 mg PO QID PRN abdominal pain 07/04/25 #10 tabs Allergies Allergy/AdvReac Type Severity Reaction Status Date / Time buspirone Allergy Unknown Unknown Verified 07/04/25 08:30 ciprofloxacin (From Cipro) Allergy Unknown Unknown Verified 07/04/25 08:30 nitrofurantoin (From Allergy Unknown Unknown Verified 07/04/25 08:30 Macrobid) fentanyl AdvReac Severe Anxiety Verified 07/04/25 08:30 prochlorperazine (From AdvReac Severe Vomiting Verified 07/04/25 08:30 Compazine) solifenacin AdvReac Severe Blurry Verified 07/04/25 08:30 Vision Opioid HPI Opioid Management Most Recent Opioid Data: Last Pain Scale 7 04/03/24, 20:02 Review of Systems ROS Status of ROS 10 or more systems reviewed and unremarkable except as noted in history and below PFSH PFS Social History Smoking status: Never smoker Little interest or pleasure in doing things: not at all Feeling down, depressed, or hopeless: not at all Exam Narrative Exam Narrative: Nurses notes and vital signs reviewed and patient is not hypoxic. General: Well-appearing and in no apparent distress. Skin: Warm, dry, no pallor noted. No rash. Head: Normocephalic, atraumatic. Neck: Supple, non-tender. Eye: Pupils are equal, round and EOMI. No scleral icterus. Ears, Nose, Mouth, and Throat: TM are clear, no nasal mucosal hypertrophy. Oral mucosa is moist, no posterior oropharynx erythema, uvula is mid-line Cardiovascular: Regular Rate and Rhythm without murmur, gallop or rub. Respiratory: No accessory muscle use or respiratory distress. Lungs are clear to auscultation, no wheezing, rales or rhonchi Chest Wall: no tenderness Back: No midline thoracic or lumbar vertebral tenderness. No CVA tenderness Musculoskeletal: normal ROM, no calf or popliteal tenderness, no lower extremity edema/swelling GI: Abdomen is soft, right lower quadrant tenderness. Neurological: A&O x4. No cranial nerve dysfunction observed. No truncal ataxia. Moves all extremities. Sensation intact. Psychiatric: Cooperative and interactive. Normal mood and affect. Constitutional Vital Signs, click to edit/add: Last Vital Signs Temp 98.2 F 07/04/25 08:25 Pulse 111 H 07/04/25 08:25 Resp 16 07/04/25 11:13 BP 167/97 H 07/04/25 08:25 Pulse Ox 96 07/04/25 11:13 O2 Del Method Room Air 07/04/25 11:13 Course Vital Signs Vital signs: Vital Signs Temperature 98.2 F 07/04/25 08:25 Pulse Rate 111 H 07/04/25 08:25 Respiratory Rate 18 07/04/25 08:25 Blood Pressure 167/97 H 07/04/25 08:25 Pulse Oximetry 95 07/04/25 08:25 Oxygen Delivery Method Room Air 07/04/25 08:25 Temperature 98.2 F 07/04/25 08:25 Pulse Rate 111 H 07/04/25 08:25 Respiratory Rate 16 07/04/25 11:13 Blood Pressure 167/97 H 07/04/25 08:25 Pulse Oximetry 96 07/04/25 11:13 Oxygen Delivery Method Room Air 07/04/25 11:13 Medical Decision Making MDM Narrative Medical decision making narrative: The patient EKG in the ER showing sinus rhythm with a heart rate of [address] elevation or depression CBC and chemistry shows no acute significant pathology And the patient CAT scan shows no acute pathology except for compression fracture at T12 which is new for which the patient was informed that she need to follow-up with her primary care as outpatient for that but she did not have any back pain at the moment The patient was very anxious I did provide her with 2.5 mg of Valium here after which we have monitored her to make sure that she is not having any side effects or desaturation from that The patient had her friend drive her home The patient to follow-up with the primary care within 2 to 3 days and to come back to the ER in case of any worsening of the current symptoms or any new symptoms or concerns Lab Data Labs: Lab Results 07/04/25 07/04/25 Range/Units 08:50 08:55 WBC 11.7 H (4.0-11.0) 10^3/uL RBC 4.01 L (4.20-5.40) 10^6/uL Hgb 13.8 (12.0-16.0) g/dL Hct 42.4 (36.0-48.0) % MCV 105.7 H (81.0-99.0) fL MCH 34.4 H (26.7-34.0) pg MCHC 32.5 (29.9-35.2) g/dL RDW 13.1 (11.0-15.0) % Plt Count 243 (150-450) 10^3/uL MPV 9.4 L (9.5-13.5) fL Neut % (Auto) 85.1 H (43.0-75.0) % Lymph % (Auto) 6.3 L (20.5-60.0) % [place] % (Auto) 7.2 (1.7-12.0) % Eos % (Auto) 0.9 (0.9-7.0) % Baso % (Auto) 0.3 (0.2-2.0) % Neut # (Auto) 9.9 H (1.4-6.5) 10^3/uL Lymph # (Auto) 0.7 L (1.2-3.8) 10^3/uL [place] # (Auto) 0.8 (0.3-0.8) 10^3/uL Eos # (Auto) 0.1 (0.0-0.7) 10^3/uL Baso # (Auto) 0.0 (0.0-0.1) 10^3/uL Abs Immat Gran (auto) 0.02 (0.00-0.03) 10^3/uL Imm/Tot Granulo (auto) 0.2 (0.0-0.5) % Sodium 145 (136-145) mmol/L Potassium 4.3 (3.5-5.1) mmol/L Chloride 104 (98-107) mmol/L Carbon Dioxide 30.0 (21.0-32.0) mmol/L Anion Gap 15.3 BUN 30.0 H (7.0-18.0) mg/dL Creatinine 0.98 (0.55-1.02) mg/dL Est GFR ( Amer) >60 (>=60 mL/min/1.73m^2) Est GFR (Non-Af Amer) 55 L (>=60 mL/min/1.73m^2) BUN/Creatinine Ratio 30.6 Glucose 128 H (74-106) mg/dL Calcium 8.8 (8.5-10.1) mg/dL Total Bilirubin 0.7 (0.2-1.0) mg/dL AST 36 (15-37) U/L ALT 37 (14-59) U/L Alkaline Phosphatase 53 (46-116) U/L Total Protein 7.4 (6.4-8.2) g/dL Albumin 3.8 (3.4-5.0) g/dL Globulin 3.6 g/dL Albumin/Globulin Ratio 1.1 Urine Color Lt. yellow (YELLOW) Urine Clarity Clear (CLEAR) Urine pH 6.0 (5.0-9.0) Ur Specific [place] 1.025 (1.005-1.025) Urine Protein Trace (NEG/TRACE) mg/dL Urine Glucose (UA) Negative (NEGATIVE) mg/dL Urine Ketones Negative (NEGATIVE) mg/dL Urine Occult Blood Negative (NEGATIVE) Urine Nitrite Negative (NEGATIVE) Urine Bilirubin Negative (NEGATIVE) Urine Urobilinogen 0.2 (0.2-1.0) EU/dL Ur Leukocyte Esterase Trace A (NEGATIVE) Urine RBC 0-2 (0-2) #/HPF Urine WBC 2-5 A (NONE SEEN) #/HPF Ur Squamous Epith Cells Moderate A (NONE/RARE) #/LPF Urine Crystals None seen (None Seen) #/HPF Urine Bacteria Moderate A (NONE SEEN) #/HPF Urine Casts None seen (NONE SEEN) #/LPF Urine Mucus None seen (NONE SEEN) Ur Culture Indicated? Yes-[facility] [place] Discharge Plan Discharge Chief Complaint: Nausea/Vomiting/Diarrhea Clinical Impression: Anxiety, Gastroenteritis, Compression fracture Patient Disposition: Home, Self-Care Time of Disposition Decision: 10:22 Condition: Good Mode of Transportation: Private Vehicle Prescriptions / Home Meds: New dicyclomine 20 mg tablet 20 mg PO QID PRN (Reason: abdominal pain) Qty: 10 0RF No Action alprazolam 0.5 mg tablet 0.25 mg PO DAILY hydroxychloroquine 200 mg tablet 200 mg PO DAILY levothyroxine 100 mcg tablet 100 mcg PO DAILY Rx Instructions: orally daily; aspirin 81 mg capsule 81 mg PO DAILY losartan 100 mg tablet 100 mg PO DAILY cyanocobalamin (vitamin B-12) [B-12 DOTS] 500 mcg tablet 500 mcg PO DAILY magnesium 200 mg tablet 400 mg PO DAILY famotidine [Acid Controller] 20 mg tablet 20 mg PO DAILY prednisone 5 mg tablet 15 mg PO DAILY PRN (Reason: lupus) melatonin 3 mg capsule 6 mg PO DAILY ropinirole 0.25 mg tablet 0.25 mg PO DAILY sertraline 50 mg tablet 50 mg PO DAILY sertraline 25 mg tablet 25 mg PO DAILY Gemtesa 75 mg tablet 75 mg PO DAILY acetaminophen [Pain Relief (acetaminophen)] 325 mg tablet 650 mg PO .2 times per day PRN (Reason: fever or pain) Print Language: Greenlandic Instructions: Acute Diarrhea (ED), Anxiety (ED) Referrals: Physician,Non-Staff, MD [Primary Care Provider] - 1 week Discharge Date/Time: 07/04/25 11:13
[2025-07-04 09:22] LABS: Cast Seen? NONE SEEN #/LPF (NONE SEEN); Crystals Seen? None Seen #/HPF (None Seen)
[2025-07-04 09:23] LABS: Urine Culture Indicated YES-FRMC
[2025-07-04 09:25] LABS: Alanine Aminotransferase 37 U/L (14-59); Albumin Globulin Ratio 1.1; Albumin Level 3.8 g/dL (3.4-5.0); Alkaline Phosphatase 53 U/L (46-116); Anion Gap 15.3; Aspartate Amino Transferase 36 U/L (15-37); Blood Urea Nitrogen 30.0 mg/dL (7.0-18.0); Calcium 8.8 mg/dL (8.5-10.1); Carbon Dioxide 30.0 mmol/L (21.0-32.0); Chloride 104 mmol/L (98-107); Estimated GFR (African America >60 (>=60 mL/min/1.73m^2); Estimated GFR (Non-African Ame 55 (>=60 mL/min/1.73m^2); Globulin 3.6 g/dL; Glucose 128 mg/dL (74-106); Potassium 4.3 mmol/L (3.5-5.1); Sodium 145 mmol/L (136-145); Total Protein 7.4 g/dL (6.4-8.2)
[2025-07-04] MEDS: KETOROLAC TROMETHAMINE 30 MG/ML VIAL 15 MG IVP (10:04)
[2025-07-04] MEDS: DIAZEPAM 10 MG/2 ML SYRINGE 2.5 MG IV (10:37)
--- NOTE | 2025-07-04 10:54 | PC.NURSE ---
placed on 2L NC after valium administration , SpO2 dropped to 88% on RA. now at 97%
[2025-07-04 11:13] VITALS: O2SAT 96
== END 2025-07-04 11:13 | disposition home or self-care (01) ==
PROVIDERS: Emergency Provider Emergency Medicine
DX: K52.9 Noninfective gastroenteritis and colitis, unspecified (principal); M48.54XA Collapsed vertebra, not elsewhere classified, thoracic region, initial encounter for fracture; F41.9 Anxiety disorder, unspecified; I10 Essential (primary) hypertension; Z87.442 Personal history of urinary calculi
CPT/HCPCS: 36415; 74176; 80053; 81001; 85025; 87086; 87088; 93005; 96374; 96375; 99284; J1885; J3360